=== PATIENT | female | born 1945 | race Caucasian/White ===

== ENCOUNTER → 2016-12-01 | Outpatient (CLI) | payer MEDICARE, OTHER ==
--- NOTE | 2016-12-01 16:08 | XR ---
EXAMINATION TYPE: XR toes LT DATE OF EXAM ORDERED: 12/01/2016 2:20 PM HISTORY: Fracture. COMPARISON: Previous study dated 11/09/2016. FINDINGS: An undisplaced fracture through the distal aspect of the proximal phalanx of the great to e is again identified. This extends intra-articularly. The fracture line is still clearly visible. Note is made of severe degenerative change in the left first MTP joint. IMPRESSION: 1. NO CHANGE IN THE APPEARANCE OF THE FRACTURE OF THE PROXIMAL PHALANX OF THE LEFT GREAT TOE. RADIOGR APHIC BONE UNION IS NOT YET COMPLETE. 2. SEVERE DEGENERATIVE CHANGE, LEFT FIRST MTP JOINT.
== END | disposition home or self-care (01) ==
LOC: RADXRMAIN 13:49
PROVIDERS: ATTEND Family Medicine
DX: S92.412A Displaced fracture of proximal phalanx of left great toe, initial encounter for closed fracture (principal); M25.872 Other specified joint disorders, left ankle and foot

== ENCOUNTER → 2016-12-01 | Outpatient (CLI) | payer MEDICARE, OTHER ==
--- NOTE | 2016-12-05 06:49 | MM ---
Reason for exam: screening (asymptomatic). Last mammogram was performed 1 year and 7 months ago. History: Patient is postmenopausal. Physical Findings: A clinical breast exam by your physician is recommended on an annual basis and results should be correlated with mammographic findings. MG 3D Screening Mammo W/Cad Bilateral CC and MLO view(s) were taken. Prior study comparison: April 23, 2015, bilateral MG screening mammo w CAD. September 10, 2013, bilateral digital screening mammo w/CAD. The breast tissue is almost entirely fat. Focal asymmetry suareolar greater in the left breast, stable. No significant changes when compared with prior studies. ASSESSMENT: Benign, BI-RAD 2 RECOMMENDATION: Routine screening mammogram of both breasts in 1 year.
== END | disposition home or self-care (01) ==
LOC: RADMAMWWP 12:49
PROVIDERS: ATTEND Family Medicine
DX: Z12.31 Encounter for screening mammogram for malignant neoplasm of breast (principal)
CPT/HCPCS: 77063; G0202

== ENCOUNTER → 2016-12-01 | Outpatient (CLI) | payer MEDICARE, OTHER ==
[2016-12-01 14:12] LABS: Basophils % (A) 1 %; CH 27.6; CHCM 30.8; Eosinophils # (A) 0.1 k/uL (0-0.7); Eosinophils % (A) 2 %; HCT 37.7 % (34.0-46.0); HDW 2.37; HGB 11.5 gm/dL (11.4-16.0); Hypochromasia Slight; Luc # (Auto) 0.19; Luc % (Auto) 3; Lymphocytes # (A) 1.8 k/uL (1.0-4.8); Lymphocytes % (A) 26 %; MCH 27.3 pg (25.0-35.0); MCHC 30.5 g/dL (31.0-37.0); MCV 89.7 fL (80.0-100.0); Mean Platelet Volume 8.1; Monocytes # (A) 0.8 k/uL (0-1.0); Monocytes % (A) 11 %; Neutrophils # (A) 4.1 k/uL (1.3-7.7); Neutrophils % (A) 58 %; RDW 13.7 % (11.5-15.5); WBC 7.1 k/uL (3.8-10.6); WBC (Perox) 7.54
[2016-12-01 14:42] LABS: Appearance,Urine Clear (Clear); Bilirubin,Urine Negative (Negative); Glucose,Urine (UA) 4+ (Negative); Ketones,Urine Negative (Negative); Leukocyte Esterase,Urine Negative (Negative); Nitrite,Urine Negative (Negative); PH, Urine 5.5 (5.0-8.0); Protein,Urine Negative (Negative); Specific Gravity,Urine 1.012 (1.001-1.035); UA Billing (MACRO vs. MICRO) CHEM; Urobilinogen,Urine <2.0 mg/dL (<2.0)
[2016-12-01 15:35] LABS: Calcium 9.3 mg/dL (8.4-10.2); Phosphorous 3.8 mg/dL (2.5-4.5); Potassium 5.2 mmol/L (3.5-5.1); Uric Acid 6.8 mg/dL (3.7-7.4)
[2016-12-01 15:52] LABS: % Iron Saturation 26.3 % (20-50)
== END | disposition home or self-care (01) ==
LOC: LABWHC1 13:17
PROVIDERS: ATTEND Nurse Practitioner Family
DX: N18.3 Chronic kidney disease, stage 3 (moderate) (principal); N25.81 Secondary hyperparathyroidism of renal origin; D64.9 Anemia, unspecified; E55.9 Vitamin D deficiency, unspecified; M10.9 Gout, unspecified; N39.0 Urinary tract infection, site not specified
CPT/HCPCS: 36415; 77063; 80048; 81003; 82306; 82728; 83540; 83550; 83735; 83970; 84100; 84550; 85025

== ENCOUNTER → 2017-01-24 | Outpatient (CLI) | payer MEDICARE, OTHER ==
--- NOTE | 2017-01-24 14:40 | US ---
EXAMINATION TYPE: US kidneys/renal and bladder DATE OF EXAM: 01/24/2017 1:15 PM COMPARISON: CT in PACS CLINICAL HISTORY: N18.3 Chronic Kidney Disease Stage 3. Chronic kidney disease EXAM MEASUREMENTS: Right Kidney: 10.1 x 4.7 x 4.6 cm Left Kidney: 10.4 x 5.1 x 4.3 cm FINDINGS: No evidence of hydronephrosis or nephrolithiasis. Bladder is limited by incomplete distenti on. There appears to be increased echogenicity of the renal cortex. Simple appearing 7 mm right renal cyst noted. IMPRESSION: 1. Correlate for chronic medical renal disease 2. Simple appearing right renal 7 mm cyst 3. Bladder wall slightly thickened but is incompletely distended which likely accounts for the findin g. Correlate clinically.
== END | disposition home or self-care (01) ==
LOC: RADUSWWP 12:45
PROVIDERS: ATTEND Internal Medicine Nephrology
DX: N18.3 Chronic kidney disease, stage 3 (moderate) (principal); N28.1 Cyst of kidney, acquired
CPT/HCPCS: 76770

== ENCOUNTER → 2017-03-23 | Outpatient (CLI) | payer MEDICARE, OTHER ==
[2017-03-23 12:12] LABS: Basophils % (A) 1 %; CH 27.9; CHCM 31.4; Eosinophils # (A) 0.2 k/uL (0-0.7); Eosinophils % (A) 3 %; HCT 36.9 % (34.0-46.0); HDW 2.39; HGB 11.7 gm/dL (11.4-16.0); Luc # (Auto) 0.22; Luc % (Auto) 3; Lymphocytes # (A) 2.2 k/uL (1.0-4.8); Lymphocytes % (A) 30 %; MCH 28.3 pg (25.0-35.0); MCHC 31.7 g/dL (31.0-37.0); MCV 89.3 fL (80.0-100.0); Mean Platelet Volume 8.6; Monocytes % (A) 14 %; Neutrophils # (A) 3.7 k/uL (1.3-7.7); Neutrophils % (A) 50 %; RBC 4.13 m/uL (3.80-5.40); WBC 7.3 k/uL (3.8-10.6); WBC (Perox) 6.58
[2017-03-23 12:42] LABS: Appearance,Urine Clear (Clear); Bilirubin,Urine Negative (Negative); Glucose,Urine (UA) Negative (Negative); Ketones,Urine Negative (Negative); Leukocyte Esterase,Urine Negative (Negative); Nitrite,Urine Negative (Negative); Protein,Urine Negative (Negative); Specific Gravity,Urine 1.014 (1.001-1.035); UA Billing (MACRO vs. MICRO) CHEM; Urobilinogen,Urine <2.0 mg/dL (<2.0)
[2017-03-23 12:43] LABS: Calcium 9.4 mg/dL (8.4-10.2); Phosphorous 4.3 mg/dL (2.5-4.5); Potassium 5.4 mmol/L (3.5-5.1); Uric Acid 7.2 mg/dL (3.7-7.4)
== END | disposition home or self-care (01) ==
LOC: LABWHC1 11:35
PROVIDERS: ATTEND Nurse Practitioner Family
DX: E21.3 Hyperparathyroidism, unspecified (principal); N39.0 Urinary tract infection, site not specified; N18.3 Chronic kidney disease, stage 3 (moderate); D64.9 Anemia, unspecified; E55.9 Vitamin D deficiency, unspecified; M10.9 Gout, unspecified
CPT/HCPCS: 36415; 80048; 81003; 82306; 82728; 83540; 83550; 83735; 83970; 84100; 84550; 85025

== ENCOUNTER → 2017-05-25 | Outpatient (CLI) | payer MEDICARE, OTHER ==
[2017-05-25 11:13] LABS: Calcium 9.4 mg/dL (8.4-10.2); Potassium 5.2 mmol/L (3.5-5.1); Total Bilirubin 0.3 mg/dL (0.2-1.3); Total Protein 6.8 g/dL (6.3-8.2)
== END ==
LOC: LABWHC1 10:16
PROVIDERS: ATTEND Internal Medicine Interventional Cardiology
DX: E87.5 Hyperkalemia (principal); E78.2 Mixed hyperlipidemia
CPT/HCPCS: 36415; 80053; 80061

== ENCOUNTER 2017-06-01 20:51 | Inpatient (IN) | payer MEDICARE, OTHER ==
[2017-06-01 22:25] LABS: Anisocytosis Slight; Basophils # (A) 0.1 k/uL (0-0.2); Basophils % (A) 1 %; CH 30.7; CHCM 32.2; Eosinophils # (A) 0.2 k/uL (0-0.7); Eosinophils % (A) 2 %; HCT 35.4 % (34.0-46.0); HDW 2.39; HGB 11.3 gm/dL (11.4-16.0); Luc # (Auto) 0.37; Luc % (Auto) 3; Lymphocytes # (A) 1.9 k/uL (1.0-4.8); Lymphocytes % (A) 16 %; MCH 30.6 pg (25.0-35.0); MCHC 31.9 g/dL (31.0-37.0); MCV 96.2 fL (80.0-100.0); Macrocytosis Slight; Mean Platelet Volume 8.4; Monocytes # (A) 1.7 k/uL (0-1.0); Monocytes % (A) 15 %; Neutrophils # (A) 7.3 k/uL (1.3-7.7); Neutrophils % (A) 64 %; RBC 3.68 m/uL (3.80-5.40); RDW 17.7 % (11.5-15.5); WBC 11.5 k/uL (3.8-10.6); WBC (Perox) 11.11
[2017-06-01 22:30] LABS: Calcium 9.2 mg/dL (8.4-10.2); Total Bilirubin 0.2 mg/dL (0.2-1.3); Total Protein 6.7 g/dL (6.3-8.2)
[2017-06-01 22:50] LABS: Creatine Kinase MB 1.1 ng/mL (0.0-2.4); Troponin I 0.016 ng/mL (0.000-0.034)
[2017-06-01 23:01] LABS: Appearance,Urine Cloudy (Clear); Bacteria,Urine Few /hpf; Bilirubin,Urine Negative (Negative); Glucose,Urine (UA) Negative (Negative); Ketones,Urine Negative (Negative); Leukocyte Esterase,Urine Large (Negative); Mucus,Urine Occasional /hpf; Nitrite,Urine Negative (Negative); Particle Count 11514; Protein,Urine Trace (Negative); RBC,Urine 3 /hpf (0-5); Squamous Epithelial Cell,Urine 33 /hpf (0-4); UA Billing (MACRO vs. MICRO) MICRO; WBC,Urine 52 /hpf (0-5)
[2017-06-01] MEDS ORDERED: SODIUM POLYSTYRENE SULFONATE 15 GM/60 ML BOTTLE PO STA (23:31)
[2017-06-01] MEDS ORDERED: SODIUM CHLORIDE 0.9% 500 ML IV ONE (23:31)
[2017-06-01] MEDS ORDERED: CALCIUM GLUCONATE 1,000 MG in SODIUM CHLORIDE 0.9% 100 ML IVPB ONE (23:31)
[2017-06-01 23:43] LABS: Partial Thromboplastin Time 19.7 sec (22.0-30.0)
[2017-06-01] MEDS ORDERED: NALOXONE 0.4 MG/ML 1 ML VIAL IV PRN (23:45)
[2017-06-01] MEDS ORDERED: ONDANSETRON 4 MG/2 ML VIAL IVP PRN (23:45)
--- NOTE | 2017-06-01 23:53 | ED ---
General Adult HPI - General Chief complaint: Syncope Stated complaint: Syncope Time Seen by Provider: 06/01/17 21:11 Source: patient, family, RN notes reviewed Mode of arrival: ambulatory Limitations: no limitations - History of Present Illness Initial comments: 71-year-old female presents with chief complaint syncopal episode. Patient proximally 5 minutes of loss consciousness wall on the toilet. There is no history of trauma. Patient denies chest pain or shortness of breath. She does complain of some generalized weakness. States she had a mild headache which is currently resolved. She has past medical history diabetes, chronic kidney disease, hypertension and CAD. She also has the beginning signs of dementia according to her family. At the time my evaluation patient had no complaints. - Related Data Home Medications Medication Instructions Recorded Confirmed Aspirin EC [Ecotrin Low Dose] 162 mg PO DAILY 12/04/14 06/01/17 Atorvastatin [Lipitor] 10 mg PO DAILY 12/04/14 06/01/17 Ergocalciferol [Vitamin D2 50,000 unit PO [id number] 12/04/14 06/01/17 (DRISDOL)] Melatonin 3 mg PO HS PRN 12/04/14 06/01/17 Omeprazole 40 mg PO AC-BRKFST 12/04/14 06/01/17 clonazePAM [KlonoPIN] 0.5 mg PO TID 12/04/14 06/01/17 Acetaminophen Tab [Tylenol] 1,000 mg PO Q6HR PRN 07/20/15 06/01/17 Albuterol Inhaler [Ventolin Hfa 2 puff INHALATION RT-HS 07/20/15 06/01/17 Inhaler] FLUoxetine HCL [PROzac] 40 mg PO DAILY 07/20/15 06/01/17 Hypromellose [Artificial Tears] 1 drop BOTH EYES DAILY PRN 07/20/15 06/01/17 Allopurinol [Zyloprim] 100 mg PO DAILY 06/01/17 06/01/17 Calcitriol [Rocaltrol] 0.25 mcg PO SAEED 06/01/17 06/01/17 Docusate [Colace] 100 mg PO Q48H 06/01/17 06/01/17 Donepezil [Aricept] 5 mg PO DAILY 06/01/17 06/01/17 Ferrous Sulfate [Feosol] 325 mg PO DAILY 06/01/17 06/01/17 Hydrochlorothiazide 12.5 mg PO DAILY 06/01/17 06/01/17 Insulin Glargine,Hum.rec.anlog 30 unit SQ HS 06/01/17 06/01/17 [Lantus Solostar] Metoprolol Tartrate [Lopressor] 50 mg PO QAM 06/01/17 06/01/17 Ondansetron [Zofran] 4 mg PO TID 06/01/17 06/01/17 Triamcinolone 0.1% Cream [Kenalog] 1 applicatio TOPICAL BID 06/01/17 06/01/17 Previous Rx's Medication Instructions Recorded Lisinopril [Prinivil] 20 mg PO DAILY #30 tablet 07/27/15 Allergies Allergy/AdvReac Type Severity Reaction Status Date / Time benztropine mesylate Allergy Unknown Verified 06/01/17 21:20 [From Cogentin] metoclopramide HCl Allergy Unknown Verified 06/01/17 21:20 [From Reglan] prochlorperazine edisylate Allergy Unknown Verified 06/01/17 21:20 [From Compazine] prochlorperazine maleate Allergy Unknown Verified 06/01/17 21:20 [From Compazine] Review of Systems ROS Statement: Those systems with pertinent positive or pertinent negative responses have been documented in the HPI. ROS Other: All systems not noted in ROS Statement are negative. Past Medical History Past Medical History: Coronary Artery Disease (CAD), CVA/TIA, Dementia, Hyperlipidemia, Hypertension Additional Past Medical History / Comment(s): pt poor historian: renal failure , dementia, gout, cerebral bleed History of Any Multi-Drug Resistant Organisms: None Reported Past Surgical History: Coronary Bypass/CABG, Hysterectomy Additional Past Surgical History / Comment(s): carotid endarectmy, trach, craniotomy Past Psychological History: No Psychological Hx Reported Smoking Status: Former smoker Past Alcohol Use History: None Reported Past Drug Use History: None Reported - Past Family History Father Family Medical History: Unable to Obtain General Exam Limitations: no limitations General appearance: alert, in no apparent distress Head exam: Present: atraumatic, normocephalic Eye exam: Present: normal appearance, PERRL ENT exam: Present: normal exam, mucous membranes moist Neck exam: Present: normal inspection, full ROM Respiratory exam: Present: normal lung sounds bilaterally. Absent: respiratory distress Cardiovascular Exam: Present: normal rhythm, bradycardia GI/Abdominal exam: Present: soft. Absent: distended, tenderness Extremities exam: Present: normal inspection, normal capillary refill. Absent: pedal edema Back exam: Present: normal inspection, full ROM Neurological exam: Present: alert, oriented X3. Absent: motor sensory deficit Psychiatric exam: Present: normal affect, normal mood Skin exam: Present: warm, dry. Absent: diaphoretic Course Vital Signs 06/01/17 06/01/17 20:55 22:00 Temperature 97.6 F 98.0 F Pulse Rate 52 L 51 L Respiratory 18 16 Rate Blood Pressure 112/57 145/61 O2 Sat by Pulse 99 99 Oximetry EKG Findings - EKG Comments: EKG Findings:: EKG shows sinus bradycardia with first-degree AV block, ventricular rate of 50, AR interval 260, QRS duration 92, QTC is 450 Medical Decision Making - Medical Decision Making 71-year-old female residing with brief episode of syncope. Patient has no complaints. She does have a history of chronic kidney disease. Laboratory studies reveal a potassium level of 6.0 and a creatinine of 1.7. Patient's EKG shows sinus bradycardia with prolonged AR interval. Patient is given calcium, vital saline, and Kayexalate in the emergency department. She will be admitted for further IV hydration, potassium will be rechecked in the morning. Diagnosis: Acute on chronic kidney disease, hyperkalemia, syncope - Lab Data Result diagrams: 06/01/17 21:58 06/01/17 21:58 Lab Results 06/01/17 06/01/17 06/01/17 Range/Units 21:58 21:58 21:58 WBC 11.5 H (3.8-10.6) k/uL RBC 3.68 L (3.80-5.40) m/uL Hgb 11.3 L (11.4-16.0) gm/dL Hct 35.4 (34.0-46.0) % MCV 96.2 (80.0-100.0) fL MCH 30.6 (25.0-35.0) pg MCHC 31.9 (31.0-37.0) g/dL RDW 17.7 H (11.5-15.5) % Plt Count 191 (150-450) k/uL Neutrophils % 64 % Lymphocytes % 16 % Monocytes % 15 % Eosinophils % 2 % Basophils % 1 % Neutrophils # 7.3 (1.3-7.7) k/uL Lymphocytes # 1.9 (1.0-4.8) k/uL Monocytes # 1.7 H (0-1.0) k/uL Eosinophils # 0.2 (0-0.7) k/uL Basophils # 0.1 (0-0.2) k/uL Anisocytosis Slight Macrocytosis Slight PT (9.0-12.0) sec INR (<1.2) APTT (22.0-30.0) sec Sodium 130 L (137-145) mmol/L Potassium 6.0 H (3.5-5.1) mmol/L Chloride 99 (98-107) mmol/L Carbon Dioxide 21 L (22-30) mmol/L Anion Gap 10 mmol/L BUN 38 H (7-17) mg/dL Creatinine 1.70 H (0.52-1.04) mg/dL Est GFR (MDRD) Af Amer 36 (>60 ml/min/1.73 sqM) Est GFR (MDRD) Non-Af 29 (>60 ml/min/1.73 sqM) Glucose 245 H (74-99) mg/dL Calcium 9.2 (8.4-10.2) mg/dL Magnesium 2.0 (1.6-2.3) mg/dL Total Bilirubin 0.2 (0.2-1.3) mg/dL AST 43 H (14-36) U/L ALT 54 H (9-52) U/L Alkaline Phosphatase 110 (38-126) U/L Total Creatine Kinase 55 (30-135) U/L CK-MB (CK-2) 1.1 (0.0-2.4) ng/mL CK-MB (CK-2) Rel Index 2.0 Troponin I 0.016 (0.000-0.034) ng/mL Total Protein 6.7 (6.3-8.2) g/dL Albumin 3.6 (3.5-5.0) g/dL Urine Color Urine Appearance (Clear) Urine pH (5.0-8.0) Ur Specific [place] (1.001-1.035) Urine Protein (Negative) Urine Glucose (UA) (Negative) Urine Ketones (Negative) Urine Blood (Negative) Urine Nitrite (Negative) Urine Bilirubin (Negative) Urine Urobilinogen (<2.0) mg/dL Ur Leukocyte Esterase (Negative) Urine RBC (0-5) /hpf Urine WBC (0-5) /hpf Ur Squamous Epith Cells (0-4) /hpf Urine Bacteria (None) /hpf Hyaline Casts (0-2) /lpf Urine Mucus (None) /hpf 06/01/17 06/01/17 Range/Units 21:58 22:48 WBC (3.8-10.6) k/uL RBC (3.80-5.40) m/uL Hgb (11.4-16.0) gm/dL Hct (34.0-46.0) % MCV (80.0-100.0) fL MCH (25.0-35.0) pg MCHC (31.0-37.0) g/dL RDW (11.5-15.5) % Plt Count (150-450) k/uL Neutrophils % % Lymphocytes % % Monocytes % % Eosinophils % % Basophils % % Neutrophils # (1.3-7.7) k/uL Lymphocytes # (1.0-4.8) k/uL Monocytes # (0-1.0) k/uL Eosinophils # (0-0.7) k/uL Basophils # (0-0.2) k/uL Anisocytosis Macrocytosis PT 10.0 (9.0-12.0) sec INR 1.0 (<1.2) APTT 19.7 L (22.0-30.0) sec Sodium (137-145) mmol/L Potassium (3.5-5.1) mmol/L Chloride (98-107) mmol/L Carbon Dioxide (22-30) mmol/L Anion Gap mmol/L BUN (7-17) mg/dL Creatinine (0.52-1.04) mg/dL Est GFR (MDRD) Af Amer (>60 ml/min/1.73 sqM) Est GFR (MDRD) Non-Af (>60 ml/min/1.73 sqM) Glucose (74-99) mg/dL Calcium (8.4-10.2) mg/dL Magnesium (1.6-2.3) mg/dL Total Bilirubin (0.2-1.3) mg/dL AST (14-36) U/L ALT (9-52) U/L Alkaline Phosphatase (38-126) U/L Total Creatine Kinase (30-135) U/L CK-MB (CK-2) (0.0-2.4) ng/mL CK-MB (CK-2) Rel Index Troponin I (0.000-0.034) ng/mL Total Protein (6.3-8.2) g/dL Albumin (3.5-5.0) g/dL Urine Color Yellow Urine Appearance Cloudy H (Clear) Urine pH 5.0 (5.0-8.0) Ur Specific [place] 1.020 (1.001-1.035) Urine Protein Trace H (Negative) Urine Glucose (UA) Negative (Negative) Urine Ketones Negative (Negative) Urine Blood Negative (Negative) Urine Nitrite Negative (Negative) Urine Bilirubin Negative (Negative) Urine Urobilinogen 2.0 (<2.0) mg/dL Ur Leukocyte Esterase Large H (Negative) Urine RBC 3 (0-5) /hpf Urine WBC 52 H (0-5) /hpf Ur Squamous Epith Cells 33 H (0-4) /hpf Urine Bacteria Few H (None) /hpf Hyaline Casts 45 H (0-2) /lpf Urine Mucus Occasional H (None) /hpf Disposition Clinical Impression: Hyperkalemia Disposition: ADMITTED IP TO THIS [facility] Condition: Stable Referrals: Wiliam Calderon DO [Primary Care Provider] - 1-2 days Decision to Admit Reason: Admit from EC Decision Date: 06/01/17 Decision Time: 23:52
[2017-06-02 01:19] VITALS: BMI 31.3
[2017-06-02 03:17] VITALS: RESP 16
[2017-06-02 06:19] LABS: Glucose,Whole Blood 209 mg/dL (75-99)
[2017-06-02] MEDS: SODIUM CHLORIDE 0.9% 1,000 ML IV SCH ×2 (06:25→17:40)
[2017-06-02] MEDS: INSULIN LISPRO (humaLOG) 300 UNIT/3 ML VIAL SQ SCH ×4 (06:26→21:19)
[2017-06-02 07:07] LABS: Anisocytosis Slight; Basophils % (A) 0 %; CH 30.5; CHCM 31.9; Eosinophils # (A) 0.2 k/uL (0-0.7); Eosinophils % (A) 2 %; HCT 32.9 % (34.0-46.0); HDW 2.33; HGB 10.5 gm/dL (11.4-16.0); Luc # (Auto) 0.34; Luc % (Auto) 3; Lymphocytes # (A) 2.8 k/uL (1.0-4.8); Lymphocytes % (A) 25 %; MCH 30.7 pg (25.0-35.0); MCV 96.1 fL (80.0-100.0); Macrocytosis Slight; Mean Platelet Volume 8.2; Monocytes # (A) 1.4 k/uL (0-1.0); Monocytes % (A) 13 %; Neutrophils # (A) 6.1 k/uL (1.3-7.7); Neutrophils % (A) 56 %; RBC 3.42 m/uL (3.80-5.40); RDW 17.3 % (11.5-15.5); WBC 10.9 k/uL (3.8-10.6); WBC (Perox) 11.06
[2017-06-02 07:19] LABS: Calcium 8.7 mg/dL (8.4-10.2); Magnesium 1.9 mg/dL (1.6-2.3); Phosphorous 3.5 mg/dL (2.5-4.5); Potassium 4.9 mmol/L (3.5-5.1)
--- NOTE | 2017-06-02 07:59 | XR ---
EXAMINATION TYPE: XR chest 2V DATE OF EXAM: 06/01/2017 COMPARISON: 07/26/2015 HISTORY: Shortness of breath TECHNIQUE: Frontal and lateral views of the chest are obtained. FINDINGS: Scattered senescent parenchymal changes noted. Hyperinflation compatible with COPD. No evidence for infiltrate. No evidence for atelectasis. Heart size is stable. Mediastinal structures are stable and grossly unremarkable. No evidence for hilar prominence. Degenerative changes dorsal spine. IMPRESSION: 1. No evidence for acute pulmonary disease.
[2017-06-02] MEDS: METOPROLOL SUCCINATE (ER) 50 MG TAB.ER.24H PO SCH (09:56)
[2017-06-02] MEDS: ASPIRIN 81 MG CHEW PO SCH (09:56)
[2017-06-02] MEDS: clonazePAM 0.5 MG TAB PO SCH ×3 (09:57→21:22)
[2017-06-02] MEDS: ACETAMINOPHEN TAB 325 MG TAB PO PRN (11:04)
[2017-06-02 12:05] LABS: Glucose,Whole Blood 221 mg/dL (75-99)
[2017-06-02 12:30] LABS: Hemoglobin A1C 8.2 % (4.2-6.1)
--- NOTE | 2017-06-02 15:10 | P.HPIM ---
History of Present Illness H&P Date: 06/02/17 Chief Complaint: Syncope This is a 71-year-old female that currently lives at assisted living facility was brought into the hospital with the a syncopal episode while patient was on the toilet. Patient currently has had a similar episode in the past. Patient does not recall if she was having enough oral intake. Patient was noted to have a worsening of kidney function initial admission a previous admission was also consistent with the similar etiology. Patient does have a history of dementia. Patient underwent orthostatics which were negative Patient was given IV fluids at the time of my evaluation states that she is significantly improved denies having any headaches blurry vision focal weakness nausea vomiting abdominal pain diarrhea Patient was able to ambulate to the bathroom without much difficulty EKG did not reveal any conduction abnormalities Describes the episode as patient was feeling weak was queasy and denies having any diaphoresis however passed out on the toilet a regain consciousness without any loss of bowel or bladdercontrol Review of Systems All systems: negative (Noted in HPI) Past Medical History Past Medical History: Coronary Artery Disease (CAD), CVA/TIA, Dementia, Diabetes Mellitus, Hyperlipidemia, Hypertension Additional Past Medical History / Comment(s): pt poor historian: renal failure , dementia, gout, cerebral bleed History of Any Multi-Drug Resistant Organisms: None Reported Past Surgical History: Coronary Bypass/CABG, Hysterectomy Additional Past Surgical History / Comment(s): carotid endarectmy, trach, craniotomy Past Psychological History: No Psychological Hx Reported Smoking Status: Former smoker Past Alcohol Use History: None Reported Past Drug Use History: None Reported - Past Family History Father Family Medical History: Unable to Obtain Medications and Allergies Home Medications Medication Instructions Recorded Confirmed Type Aspirin EC [Ecotrin Low Dose] 162 mg PO DAILY 12/04/14 06/01/17 History Atorvastatin [Lipitor] 10 mg PO DAILY 12/04/14 06/01/17 History Ergocalciferol [Vitamin D2 50,000 unit PO [id number] 12/04/14 06/01/17 History (DRISDOL)] Melatonin 3 mg PO HS PRN 12/04/14 06/01/17 History Omeprazole 40 mg PO AC-BRKFST 12/04/14 06/01/17 History clonazePAM [KlonoPIN] 0.5 mg PO TID 12/04/14 06/01/17 History Acetaminophen Tab [Tylenol] 1,000 mg PO Q6HR PRN 07/20/15 06/01/17 History Albuterol Inhaler [Ventolin Hfa 2 puff INHALATION RT-HS 07/20/15 06/01/17 History Inhaler] FLUoxetine HCL [PROzac] 40 mg PO DAILY 07/20/15 06/01/17 History Hypromellose [Artificial Tears] 1 drop BOTH EYES DAILY PRN 07/20/15 06/01/17 History Allopurinol [Zyloprim] 100 mg PO DAILY 06/01/17 06/01/17 History Calcitriol [Rocaltrol] 0.25 mcg PO SAEED 06/01/17 06/01/17 History Docusate [Colace] 100 mg PO Q48H 06/01/17 06/01/17 History Donepezil [Aricept] 5 mg PO DAILY 06/01/17 06/01/17 History Ferrous Sulfate [Feosol] 325 mg PO DAILY 06/01/17 06/01/17 History Hydrochlorothiazide 12.5 mg PO DAILY 06/01/17 06/01/17 History Insulin Glargine,Hum.rec.anlog 30 unit SQ HS 06/01/17 06/01/17 History [Lantus Solostar] Metoprolol Tartrate [Lopressor] 50 mg PO QAM 06/01/17 06/01/17 History Ondansetron [Zofran] 4 mg PO TID 06/01/17 06/01/17 History Triamcinolone 0.1% Cream [Kenalog] 1 applicatio TOPICAL BID 06/01/17 06/01/17 History Allergies Allergy/AdvReac Type Severity Reaction Status Date / Time benztropine mesylate Allergy Unknown Verified 06/01/17 21:20 [From Cogentin] metoclopramide HCl Allergy Unknown Verified 06/01/17 21:20 [From Reglan] prochlorperazine edisylate Allergy Unknown Verified 06/01/17 21:20 [From Compazine] prochlorperazine maleate Allergy Unknown Verified 06/01/17 21:20 [From Compazine] Physical Exam Vitals: Vital Signs Temp Pulse Pulse Pulse Pulse Pulse Resp 06/02/17 12:27 60 16 06/02/17 09:20 16 06/02/17 08:00 97 F L 58 L 70 56 L 16 06/02/17 03:13 97.4 F L 57 L 16 06/02/17 00:36 96.9 F L 54 L 18 06/02/17 00:18 51 L 14 06/01/17 22:00 98.0 F 51 L 16 06/01/17 20:55 97.6 F 52 L 18 BP BP BP BP BP Pulse Ox 06/02/17 12:27 152/69 95 06/02/17 09:20 06/02/17 08:00 148/50 143/64 154/64 96 06/02/17 03:13 138/51 97 06/02/17 00:36 157/70 98 06/02/17 00:18 162/72 94 L 06/01/17 22:00 145/61 99 06/01/17 20:55 112/57 99 Intake and Output 06/02/17 06/02/17 06/02/17 06:59 14:59 22:59 Intake Total 800 Output Total 350 Balance 450 Intake: IV 800 Calcium Gluconate 1,000 100 mg In Sodium Chloride 0.9 % 100 ml @ 100 mls/hr IVPB ONCE ONE Rx#: [id number] Sodium Chloride 0.9% 1, 700 000 ml @ 75 mls/hr IV . [id number] [facility] Rx#:[id number] Output: Urine 350 Other: Weight 91.5 kg Physical exam Gen. appearance oriented 3 in no distress Neck is supple no JVD Lungs good air entry clear to auscultation no rhonchi or wheezing trace crackles at the bases Heart S1-S2 heard regular rate and rhythm no murmurs appreciated Abdomen is soft nontender no organomegaly bowel sounds are intact Neurologically cranial nerves II-12 grossly intact no focal motor or sensory deficits noted Skin no abnormalities appreciated Results CBC & Chem 7: 06/02/17 06:29 06/02/17 06:29 Labs: Abnormal Lab Results - Last 24 Hours (Table) 06/01/17 06/01/17 06/01/17 Range/Units 21:58 21:58 21:58 WBC 11.5 H (3.8-10.6) k/uL RBC 3.68 L (3.80-5.40) m/uL Hgb 11.3 L (11.4-16.0) gm/dL Hct (34.0-46.0) % RDW 17.7 H (11.5-15.5) % Monocytes # 1.7 H (0-1.0) k/uL APTT 19.7 L (22.0-30.0) sec Sodium 130 L (137-145) mmol/L Potassium 6.0 H (3.5-5.1) mmol/L Carbon Dioxide 21 L (22-30) mmol/L BUN 38 H (7-17) mg/dL Creatinine 1.70 H (0.52-1.04) mg/dL Glucose 245 H (74-99) mg/dL POC Glucose (mg/dL) (75-99) mg/dL Hemoglobin A1c (4.2-6.1) % AST 43 H (14-36) U/L ALT 54 H (9-52) U/L Urine Appearance (Clear) Urine Protein (Negative) Ur Leukocyte Esterase (Negative) Urine WBC (0-5) /hpf Ur Squamous Epith Cells (0-4) /hpf Urine Bacteria (None) /hpf Hyaline Casts (0-2) /lpf Urine Mucus (None) /hpf 06/01/17 06/02/17 06/02/17 Range/Units 22:48 06:18 06:29 WBC 10.9 H (3.8-10.6) k/uL RBC 3.42 L (3.80-5.40) m/uL Hgb 10.5 L (11.4-16.0) gm/dL Hct 32.9 L (34.0-46.0) % RDW 17.3 H (11.5-15.5) % Monocytes # 1.4 H (0-1.0) k/uL APTT (22.0-30.0) sec Sodium (137-145) mmol/L Potassium (3.5-5.1) mmol/L Carbon Dioxide (22-30) mmol/L BUN (7-17) mg/dL Creatinine (0.52-1.04) mg/dL Glucose (74-99) mg/dL POC Glucose (mg/dL) 209 H (75-99) mg/dL Hemoglobin A1c (4.2-6.1) % AST (14-36) U/L ALT (9-52) U/L Urine Appearance Cloudy H (Clear) Urine Protein Trace H (Negative) Ur Leukocyte Esterase Large H (Negative) Urine WBC 52 H (0-5) /hpf Ur Squamous Epith Cells 33 H (0-4) /hpf Urine Bacteria Few H (None) /hpf Hyaline Casts 45 H (0-2) /lpf Urine Mucus Occasional H (None) /hpf 06/02/17 06/02/17 06/02/17 Range/Units 06:29 06:29 11:55 WBC (3.8-10.6) k/uL RBC (3.80-5.40) m/uL Hgb (11.4-16.0) gm/dL Hct (34.0-46.0) % RDW (11.5-15.5) % Monocytes # (0-1.0) k/uL APTT (22.0-30.0) sec Sodium 131 L (137-145) mmol/L Potassium (3.5-5.1) mmol/L Carbon Dioxide (22-30) mmol/L BUN 35 H (7-17) mg/dL Creatinine 1.32 H (0.52-1.04) mg/dL Glucose 198 H (74-99) mg/dL POC Glucose (mg/dL) 221 H (75-99) mg/dL Hemoglobin A1c 8.2 H (4.2-6.1) % AST (14-36) U/L ALT (9-52) U/L Urine Appearance (Clear) Urine Protein (Negative) Ur Leukocyte Esterase (Negative) Urine WBC (0-5) /hpf Ur Squamous Epith Cells (0-4) /hpf Urine Bacteria (None) /hpf Hyaline Casts (0-2) /lpf Urine Mucus (None) /hpf Microbiology - Last 24 Hours (Table) 06/01/17 22:48 Urine Culture - Preliminary Urine,Voided Thrombosis Risk Factor Assmnt - Choose All That Apply Any of the Below Risk Factors Present?: Yes Each Factor Represents 1 point: Medical pt on bed rest, Obesity (BMI >25) Each Risk Factor Represents 2 Points: Age 61-74 years, Patient confined to bed Thrombosis Risk Factor Assessment Total Risk Factor Score: 6 Thrombosis Risk Factor Assessment Level: High Risk Assessment and Plan Plan: #1 syncope likely due to a vagal episode #2 acute kidney injury due to dehydration #3 hyponatremia likely due to use of cardiac or thiazide and dehydration #4 history of gout #5 dementia #6 essential hypertension #7 CAD #8 history of possible cerebral bleed # Plan Orthostatics are negative. We'll discontinue fluids We'll hold off on hydrochlorothiazide Continue telemetry monitoring repeat labs in the a.m. Patient will likely be discharged back to the assisted living facility in the next 24-48 hours Patient will be ambulated with compression socks to monitor for any abnormality on the monitoring engineer it appears that is a clear vasovagal episode
[2017-06-02 17:17] LABS: Glucose,Whole Blood 131 mg/dL (75-99)
[2017-06-02 20:41] LABS: Glucose,Whole Blood 182 mg/dL (75-99)
[2017-06-02] MEDS ORDERED: INSULIN GLARGINE 100 UNIT/ML 10 ML VIAL SQ SCH (21:00)
[2017-06-03 06:25] LABS: Glucose,Whole Blood 138 mg/dL (75-99)
[2017-06-03] MEDS: INSULIN LISPRO (humaLOG) 300 UNIT/3 ML VIAL SQ SCH ×2 (06:39→12:48)
[2017-06-03 06:57] LABS: Anisocytosis Slight; Basophils # (A) 0.1 k/uL (0-0.2); Basophils % (A) 1 %; CH 30.6; CHCM 32.2; Eosinophils # (A) 0.3 k/uL (0-0.7); Eosinophils % (A) 3 %; HDW 2.32; HGB 11.3 gm/dL (11.4-16.0); Luc # (Auto) 0.29; Luc % (Auto) 3; Lymphocytes # (A) 2.5 k/uL (1.0-4.8); Lymphocytes % (A) 28 %; MCH 30.9 pg (25.0-35.0); MCHC 32.4 g/dL (31.0-37.0); MCV 95.4 fL (80.0-100.0); Macrocytosis Slight; Mean Platelet Volume 8.2; Monocytes # (A) 1.2 k/uL (0-1.0); Monocytes % (A) 13 %; Neutrophils # (A) 4.7 k/uL (1.3-7.7); Neutrophils % (A) 52 %; RBC 3.67 m/uL (3.80-5.40); RDW 17.4 % (11.5-15.5); WBC (Perox) 8.85
[2017-06-03 07:09] LABS: Calcium 9.5 mg/dL (8.4-10.2); Total Bilirubin 0.2 mg/dL (0.2-1.3); Total Protein 6.6 g/dL (6.3-8.2)
[2017-06-03 07:44] VITALS: TEMP 98.3
[2017-06-03] MEDS: clonazePAM 0.5 MG TAB PO SCH (07:45)
[2017-06-03] MEDS: ASPIRIN 81 MG CHEW PO SCH (07:45)
[2017-06-03] MEDS: METOPROLOL SUCCINATE (ER) 50 MG TAB.ER.24H PO SCH (07:46)
[2017-06-03] MEDS: ACETAMINOPHEN TAB 325 MG TAB PO PRN (07:49)
[2017-06-03] MEDS ORDERED: CALCITRIOL 0.25 MCG CAP PO SCH (09:00)
[2017-06-03] MEDS ORDERED: LISINOPRIL 20 MG TAB PO SCH (09:00)
[2017-06-03] MEDS ORDERED: HYDROCHLOROTHIAZIDE 12.5 MG CAP PO SCH (09:00)
[2017-06-03] MEDS ORDERED: FLUoxetine HCL 20 MG CAP PO SCH (09:00)
[2017-06-03] MEDS ORDERED: DONEPEZIL 5 MG TAB PO SCH (09:00)
[2017-06-03] MEDS ORDERED: CEFUROXIME 250 MG TAB PO SCH (09:45)
[2017-06-03 12:20] LABS: Glucose,Whole Blood 257 mg/dL (75-99)
[2017-06-03 12:46] VITALS: BP 113/52; PULSE 60
--- NOTE | 2017-06-03 15:00 | P.DS ---
Providers Date of admission: 06/01/17 23:45 Attending physician: Daron Davis Primary care physician: [facility] Course: This is a 71-year-old female that currently lives at assisted living facility was brought into the hospital with the a syncopal episode while patient was on the toilet. Patient currently has had a similar episode in the past. Patient does not recall if she was having enough oral intake. Patient was noted to have a worsening of kidney function initial admission a previous admission was also consistent with the similar etiology. Patient does have a history of dementia. Patient underwent orthostatics which were negative Patient was given IV fluids at the time of my evaluation states that she is significantly improved denies having any headaches blurry vision focal weakness nausea vomiting abdominal pain diarrhea Patient was able to ambulate to the bathroom without much difficulty EKG did not reveal any conduction abnormalities Describes the episode as patient was feeling weak was queasy and denies having any diaphoresis however passed out on the toilet a regain consciousness without any loss of bowel or bladdercontrol 06/03/2017 Patient is doing well Is able to family without difficulty Orthostatics are negative No or night telemetry events noted Physical exam Physical exam Gen. appearance oriented 3 in no distress Neck is supple no JVD Lungs good air entry clear to auscultation no rhonchi or wheezing trace crackles at the bases Heart S1-S2 heard regular rate and rhythm no murmurs appreciated Abdomen is soft nontender no organomegaly bowel sounds are intact Neurologically cranial nerves II-12 grossly intact no focal motor or sensory deficits noted Skin no abnormalities appreciated Plan: #1 syncope likely due to a vagal episode #2 acute kidney injury due to dehydration #3 hyponatremia likely due to use of cardiac or thiazide and dehydration #4 history of gout #5 dementia #6 essential hypertension #7 CAD #8 history of possible cerebral bleed # appears to be dehydrated We'll discontinue hydrochlorothiazide in light of this Encouraged patient to have increased fluid intake We'll defer to patient's primary care physician in regards to restarting a small dose diuretic later Patient does have dementia there is concern for her oral intake Patient Condition at Discharge: Stable Plan - Discharge Summary New Discharge Prescriptions: New Cefuroxime [Ceftin] 250 mg PO BID #8 tab Continue Omeprazole 40 mg PO AC-BRKFST clonazePAM [KlonoPIN] 0.5 mg PO TID Aspirin EC [Ecotrin Low Dose] 162 mg PO DAILY Ergocalciferol [Vitamin D2 (DRISDOL)] 50,000 unit PO [id number] Atorvastatin [Lipitor] 10 mg PO DAILY Melatonin 3 mg PO HS PRN PRN Reason: sleep Albuterol Inhaler [Ventolin Hfa Inhaler] 2 puff INHALATION RT-HS Acetaminophen Tab [Tylenol] 1,000 mg PO Q6HR PRN PRN Reason: Pain Or Fever > 100.5 Hypromellose [Artificial Tears] 1 drop BOTH EYES DAILY PRN PRN Reason: DRY EYES FLUoxetine HCL [PROzac] 40 mg PO DAILY Lisinopril [Prinivil] 20 mg PO DAILY #30 tablet Ondansetron [Zofran] 4 mg PO TID Metoprolol Tartrate [Lopressor] 50 mg PO QAM Calcitriol [Rocaltrol] 0.25 mcg PO SAEED Donepezil [Aricept] 5 mg PO DAILY Triamcinolone 0.1% Cream [Kenalog] 1 applicatio TOPICAL BID Insulin Glargine,Hum.rec.anlog [Lantus Solostar] 30 unit SQ HS Ferrous Sulfate [Iron (65 MG Elemental)] 325 mg PO DAILY Allopurinol [Zyloprim] 100 mg PO DAILY Docusate [Colace] 100 mg PO Q48H Discontinued Hydrochlorothiazide 12.5 mg PO DAILY Discharge Medication List Aspirin EC [Ecotrin Low Dose] 162 mg PO DAILY 12/04/14 [History] Atorvastatin [Lipitor] 10 mg PO DAILY 12/04/14 [History] Ergocalciferol [Vitamin D2 (DRISDOL)] 50,000 unit PO [id number] 12/04/14 [History] Melatonin 3 mg PO HS PRN 12/04/14 [History] Omeprazole 40 mg PO AC-BRKFST 12/04/14 [History] clonazePAM [KlonoPIN] 0.5 mg PO TID 12/04/14 [History] Acetaminophen Tab [Tylenol] 1,000 mg PO Q6HR PRN 07/20/15 [History] Albuterol Inhaler [Ventolin Hfa Inhaler] 2 puff INHALATION RT-HS 07/20/15 [ History] FLUoxetine HCL [PROzac] 40 mg PO DAILY 07/20/15 [History] Hypromellose [Artificial Tears] 1 drop BOTH EYES DAILY PRN 07/20/15 [History] Lisinopril [Prinivil] 20 mg PO DAILY #30 tablet 07/27/15 [Rx] Allopurinol [Zyloprim] 100 mg PO DAILY 06/01/17 [History] Calcitriol [Rocaltrol] 0.25 mcg PO SAEED 06/01/17 [History] Docusate [Colace] 100 mg PO Q48H 06/01/17 [History] Donepezil [Aricept] 5 mg PO DAILY 06/01/17 [History] Ferrous Sulfate [Iron (65 MG Elemental)] 325 mg PO DAILY 06/01/17 [History] Insulin Glargine,Hum.rec.anlog [Lantus Solostar] 30 unit SQ HS 06/01/17 [History ] Metoprolol Tartrate [Lopressor] 50 mg PO QAM 06/01/17 [History] Ondansetron [Zofran] 4 mg PO TID 06/01/17 [History] Triamcinolone 0.1% Cream [Kenalog] 1 applicatio TOPICAL BID 06/01/17 [History] Cefuroxime [Ceftin] 250 mg PO BID #8 tab 06/03/17 [Rx] Follow up Appointment(s)/Referral(s): Wiliam Calderon DO [Primary Care Provider] - 1-2 days Patient Instructions/Handouts: Dehydration (DC), Urinary Tract Infection in Women (DC), Syncope (DC), Hyperkalemia (DC) Discharge Disposition: HOME SELF-CARE
== END 2017-06-03 14:14 | disposition home or self-care (01) | DRG 683 ==
LOC: EC 20:51 → 6SEL 23:45
PROVIDERS: ADMIT Internal Medicine; ATTEND Internal Medicine
DX: N17.9 Acute kidney failure, unspecified (principal); E87.1 Hypo-osmolality and hyponatremia; E11.22 Type 2 diabetes mellitus with diabetic chronic kidney disease; F03.90 Unspecified dementia, unspecified severity, without behavioral disturbance, psychotic disturbance, mood disturbance, and anxiety; E87.5 Hyperkalemia; E86.0 Dehydration; R00.1 Bradycardia, unspecified; R55 Syncope and collapse; T50.2X5A Adverse effect of carbonic-anhydrase inhibitors, benzothiadiazides and other diuretics, initial encounter; M10.9 Gout, unspecified; I25.10 Atherosclerotic heart disease of native coronary artery without angina pectoris; I12.9 Hypertensive chronic kidney disease with stage 1 through stage 4 chronic kidney disease, or unspecified chronic kidney disease; E78.5 Hyperlipidemia, unspecified; N18.9 Chronic kidney disease, unspecified; Z79.82 Long term (current) use of aspirin; Z79.4 Long term (current) use of insulin; Z79.899 Other long term (current) drug therapy; Z86.73 Personal history of transient ischemic attack (TIA), and cerebral infarction without residual deficits; Z87.891 Personal history of nicotine dependence; Z95.1 Presence of aortocoronary bypass graft; Z90.710 Acquired absence of both cervix and uterus
CPT/HCPCS: 36415; 71020; 80048; 80053; 81001; 82550; 82553; 83036; 83735; 84100; 84484; 85025; 85610; 85730; 87086; 93005; 96365; 96375; 99285

== ENCOUNTER → 2017-07-27 | Outpatient (CLI) | payer MEDICARE, OTHER ==
[2017-07-27 16:38] LABS: Calcium 9.2 mg/dL (8.4-10.2); Phosphorous 3.6 mg/dL (2.5-4.5); Potassium 5.6 mmol/L (3.5-5.1); Uric Acid 4.5 mg/dL (3.7-7.4)
[2017-07-27 16:42] LABS: Basophils % (A) 0 %; CH 30.9; Eosinophils # (A) 0.2 k/uL (0-0.7); Eosinophils % (A) 2 %; HCT 37.3 % (34.0-46.0); HDW 2.18; HGB 11.9 gm/dL (11.4-16.0); Luc # (Auto) 0.25; Luc % (Auto) 3; Lymphocytes # (A) 2.5 k/uL (1.0-4.8); Lymphocytes % (A) 25 %; MCV 100.1 fL (80.0-100.0); Macrocytosis Slight; Mean Platelet Volume 7.9; Monocytes # (A) 1.3 k/uL (0-1.0); Monocytes % (A) 13 %; Neutrophils # (A) 5.6 k/uL (1.3-7.7); Neutrophils % (A) 57 %; RBC 3.73 m/uL (3.80-5.40); RDW 14.4 % (11.5-15.5); WBC 9.9 k/uL (3.8-10.6); WBC (Perox) 10.55
[2017-07-27 19:43] LABS: Hemoglobin A1C 7.6 % (4.2-6.1)
[2017-07-28 00:47] LABS: Iron Saturation 66.91 (12.00-45.00)
== END | disposition home or self-care (01) ==
LOC: LABWHC1 15:48
PROVIDERS: ATTEND Nurse Practitioner Family
DX: N18.3 Chronic kidney disease, stage 3 (moderate) (principal); D64.9 Anemia, unspecified; D50.9 Iron deficiency anemia, unspecified; E11.9 Type 2 diabetes mellitus without complications; E83.39 Other disorders of phosphorus metabolism; M10.9 Gout, unspecified
CPT/HCPCS: 36415; 80048; 82306; 82728; 83036; 83540; 83550; 83735; 83970; 84100; 84550; 85025

== ENCOUNTER → 2017-12-07 | Outpatient (CLI) | payer MEDICARE, OTHER ==
[2017-12-07 11:22] LABS: Appearance,Urine Clear (Clear); Bilirubin,Urine Negative (Negative); Blood,Urine Negative (Negative); Color,Urine Yellow; Glucose,Urine (UA) Negative (Negative); Ketones,Urine Negative (Negative); Leukocyte Esterase,Urine Negative (Negative); Nitrite,Urine Negative (Negative); Protein,Urine Trace (Negative); Specific Gravity,Urine 1.011 (1.001-1.035); Urobilinogen,Urine <2.0 mg/dL (<2.0)
[2017-12-07 11:43] LABS: Basophils # (A) 0.1 k/uL (0-0.2); Basophils % (A) 1 %; Eosinophils # (A) 0.2 k/uL (0-0.7); Eosinophils % (A) 2 %; HCT 41.7 % (34.0-46.0); Lymphocytes # (A) 2.2 k/uL (1.0-4.8); Lymphocytes % (A) 24 %; MCH 30.4 pg (25.0-35.0); MCHC 31.2 g/dL (31.0-37.0); MCV 97.4 fL (80.0-100.0); Mean Platelet Volume 7.9; Monocytes # (A) 1.2 k/uL (0-1.0); Monocytes % (A) 12 %; Neutrophils # (A) 5.6 k/uL (1.3-7.7); Neutrophils % (A) 59 %; Platelet Count 188 k/uL (150-450); RBC 4.28 m/uL (3.80-5.40); RDW 13.6 % (11.5-15.5); WBC 9.5 k/uL (3.8-10.6)
[2017-12-07 11:58] LABS: Albumin 3.8 g/dL (3.5-5.0); Calcium 9.4 mg/dL (8.4-10.2); Phosphorus 3.4 mg/dL (2.5-4.5); Potassium 5.4 mmol/L (3.5-5.1); Total Bilirubin 0.4 mg/dL (0.2-1.3); Total Protein 7.1 g/dL (6.3-8.2); Uric Acid 4.4 mg/dL (3.7-7.4)
[2017-12-07 15:49] LABS: Iron Saturation 77.08 (12.00-45.00)
[2017-12-07 15:58] LABS: Vitamin D 25 Hydroxy 35.6 ng/mL (30.0-100.0)
[2017-12-07 16:00] LABS: Parathyroid Hormone Intact 73.5 pg/mL (14.0-72.0)
[2017-12-07 17:05] LABS: Hemoglobin A1C 8.6 % (4.0-6.0)
== END | disposition home or self-care (01) ==
LOC: LABWHC1 10:51
PROVIDERS: ATTEND Nurse Practitioner Family
DX: E78.2 Mixed hyperlipidemia (principal); E55.9 Vitamin D deficiency, unspecified; E21.3 Hyperparathyroidism, unspecified; M10.9 Gout, unspecified; N39.0 Urinary tract infection, site not specified; N18.3 Chronic kidney disease, stage 3 (moderate); D50.9 Iron deficiency anemia, unspecified; E11.22 Type 2 diabetes mellitus with diabetic chronic kidney disease
CPT/HCPCS: 36415; 80053; 80061; 81003; 82306; 82728; 83036; 83540; 83550; 83735; 83970; 84100; 84550; 85025

== ENCOUNTER → 2018-01-09 | Outpatient (CLI) | payer MEDICARE, OTHER ==
[2018-01-09 14:22] LABS: Basophils % (A) 0 %; Eosinophils # (A) 0.2 k/uL (0-0.7); Eosinophils % (A) 2 %; HCT 40.2 % (34.0-46.0); HGB 12.7 gm/dL (11.4-16.0); Lymphocytes # (A) 2.4 k/uL (1.0-4.8); Lymphocytes % (A) 24 %; MCH 30.4 pg (25.0-35.0); MCHC 31.7 g/dL (31.0-37.0); Mean Platelet Volume 8.3; Monocytes # (A) 1.2 k/uL (0-1.0); Monocytes % (A) 12 %; Neutrophils % (A) 59 %; Platelet Count 183 k/uL (150-450); RBC 4.19 m/uL (3.80-5.40); RDW 13.5 % (11.5-15.5); WBC 10.1 k/uL (3.8-10.6)
[2018-01-09 14:36] LABS: Phosphorus 3.8 mg/dL (2.5-4.5); Potassium 5.3 mmol/L (3.5-5.1); Uric Acid 5.8 mg/dL (3.7-7.4)
[2018-01-09 14:46] LABS: Amorphous Sediment,Urine Rare /hpf; Appearance,Urine Cloudy (Clear); Bacteria,Urine Occasional /hpf; Bilirubin,Urine Negative (Negative); Blood,Urine Negative (Negative); Color,Urine Yellow; Glucose,Urine (UA) 3+ (Negative); Hyaline Casts,Urine 19 /lpf (0-2); Ketones,Urine Negative (Negative); Leukocyte Esterase,Urine Trace (Negative); Mucus,Urine Rare /hpf; PH, Urine 5.5 (5.0-8.0); Protein,Urine Trace (Negative); RBC,Urine 1 /hpf (0-5); Specific Gravity,Urine 1.016 (1.001-1.035); Squamous Epithelial Cell,Urine 13 /hpf (0-4); Urobilinogen,Urine <2.0 mg/dL (<2.0); WBC,Urine 5 /hpf (0-5)
[2018-01-09 19:56] LABS: Iron Saturation 33.44 (12.00-45.00)
[2018-01-09 20:56] LABS: Parathyroid Hormone Intact 149.1 pg/mL (14.0-72.0)
== END | disposition home or self-care (01) ==
LOC: LABWHC1 13:32
PROVIDERS: ATTEND Nurse Practitioner Family
DX: N39.0 Urinary tract infection, site not specified (principal); M10.9 Gout, unspecified; E21.3 Hyperparathyroidism, unspecified; E55.9 Vitamin D deficiency, unspecified; E11.22 Type 2 diabetes mellitus with diabetic chronic kidney disease; N18.3 Chronic kidney disease, stage 3 (moderate); D50.9 Iron deficiency anemia, unspecified
CPT/HCPCS: 36415; 80048; 81001; 82728; 83540; 83550; 83735; 83970; 84100; 84550; 85025

== ENCOUNTER → 2018-02-15 | Outpatient (CLI) | payer MEDICARE, OTHER | END | disposition home or self-care (01) | LOC: LABWHC1 14:21 | PROVIDERS: ATTEND Internal Medicine | DX: E87.5 Hyperkalemia (principal) | CPT/HCPCS: 36415; 84132 ==

== ENCOUNTER → 2018-03-01 | Outpatient (CLI) | payer MEDICARE, OTHER ==
[2018-03-01 15:14] LABS: Calcium 8.7 mg/dL (8.4-10.2); Potassium 5.1 mmol/L (3.5-5.1)
== END | disposition home or self-care (01) ==
LOC: LABWHC1 14:46
PROVIDERS: ATTEND Nurse Practitioner Family
DX: N18.3 Chronic kidney disease, stage 3 (moderate) (principal)
CPT/HCPCS: 36415; 80048

== ENCOUNTER → 2018-03-28 | Outpatient (CLI) | payer MEDICARE, OTHER ==
[2018-03-28 15:03] LABS: Appearance,Urine Clear (Clear); Basophils # (A) 0.1 k/uL (0-0.2); Basophils % (A) 1 %; Bilirubin,Urine Negative (Negative); Blood,Urine Negative (Negative); Color,Urine Light Yellow; Eosinophils # (A) 0.2 k/uL (0-0.7); Eosinophils % (A) 2 %; Glucose,Urine (UA) Negative (Negative); HCT 38.6 % (34.0-46.0); HGB 12.1 gm/dL (11.4-16.0); Ketones,Urine Negative (Negative); Leukocyte Esterase,Urine Negative (Negative); Lymphocytes # (A) 2.4 k/uL (1.0-4.8); Lymphocytes % (A) 23 %; MCH 30.7 pg (25.0-35.0); MCHC 31.2 g/dL (31.0-37.0); MCV 98.3 fL (80.0-100.0); Macrocytosis Slight; Mean Platelet Volume 8.2; Monocytes # (A) 1.4 k/uL (0-1.0); Monocytes % (A) 14 %; Neutrophils # (A) 5.8 k/uL (1.3-7.7); Neutrophils % (A) 58 %; Nitrite,Urine Negative (Negative); Platelet Count 202 k/uL (150-450); Protein,Urine Negative (Negative); RBC 3.93 m/uL (3.80-5.40); RDW 14.9 % (11.5-15.5); Specific Gravity,Urine 1.006 (1.001-1.035); Urobilinogen,Urine <2.0 mg/dL (<2.0); WBC 10.2 k/uL (3.8-10.6)
[2018-03-28 15:14] LABS: Calcium 9.6 mg/dL (8.4-10.2); Magnesium 1.9 mg/dL (1.6-2.3); Phosphorus 3.9 mg/dL (2.5-4.5); Potassium 5.6 mmol/L (3.5-5.1)
[2018-03-28 17:58] LABS: Iron Saturation 48.82 (12.00-45.00)
[2018-03-28 18:02] LABS: Parathyroid Hormone Intact 80.7 pg/mL (14.0-72.0)
[2018-03-28 18:06] LABS: Vitamin D 25 Hydroxy 52.3 ng/mL (30.0-100.0)
[2018-03-28 19:15] LABS: Hemoglobin A1C 8.3 % (4.0-6.0)
== END ==
LOC: LABWHC1 13:50
PROVIDERS: ATTEND Nurse Practitioner Family
DX: E55.9 Vitamin D deficiency, unspecified (principal); N18.3 Chronic kidney disease, stage 3 (moderate); E11.22 Type 2 diabetes mellitus with diabetic chronic kidney disease; N25.81 Secondary hyperparathyroidism of renal origin; D50.9 Iron deficiency anemia, unspecified; M10.9 Gout, unspecified
CPT/HCPCS: 36415; 80048; 81003; 82306; 82728; 83036; 83540; 83550; 83735; 83970; 84100; 84550; 85025

== ENCOUNTER → 2018-04-12 | Outpatient (CLI) | payer MEDICARE, OTHER | END | disposition home or self-care (01) | LOC: LABWHC1 15:52 | PROVIDERS: ATTEND Nurse Practitioner Family | DX: E87.5 Hyperkalemia (principal) | CPT/HCPCS: 36415; 84132 ==

== ENCOUNTER → 2018-05-03 | Outpatient (CLI) | payer MEDICARE, OTHER ==
[2018-05-03 14:08] LABS: Appearance,Urine Cloudy (Clear); Bacteria,Urine Occasional /hpf; Bilirubin,Urine Negative (Negative); Blood,Urine Moderate (Negative); Budding Yeast,Urine Occasional /hpf; Color,Urine Yellow; Glucose,Urine (UA) Negative (Negative); Hyaline Casts,Urine 7 /lpf (0-2); Ketones,Urine Negative (Negative); Leukocyte Esterase,Urine Small (Negative); Mucus,Urine Rare /hpf; Nitrite,Urine Negative (Negative); PH, Urine 5.5 (5.0-8.0); Protein,Urine 1+ (Negative); RBC,Urine 1 /hpf (0-5); Specific Gravity,Urine 1.017 (1.001-1.035); Squamous Epithelial Cell,Urine 5 /hpf (0-4); WBC,Urine 6 /hpf (0-5)
[2018-05-03 14:11] LABS: Basophils % (A) 0 %; Eosinophils # (A) 0.2 k/uL (0-0.7); Eosinophils % (A) 2 %; HCT 31.7 % (34.0-46.0); Hypochromasia Slight; Lymphocytes # (A) 1.8 k/uL (1.0-4.8); Lymphocytes % (A) 19 %; MCH 31.3 pg (25.0-35.0); MCHC 31.1 g/dL (31.0-37.0); MCV 100.9 fL (80.0-100.0); Macrocytosis Slight; Mean Platelet Volume 7.8; Monocytes # (A) 0.9 k/uL (0-1.0); Monocytes % (A) 10 %; Neutrophils # (A) 6.5 k/uL (1.3-7.7); Neutrophils % (A) 67 %; Platelet Count 188 k/uL (150-450); RBC 3.14 m/uL (3.80-5.40); RDW 15.6 % (11.5-15.5); WBC 9.7 k/uL (3.8-10.6)
[2018-05-03 14:14] LABS: HGB 9.8 gm/dL (11.4-16.0)
[2018-05-03 14:19] LABS: Calcium 8.8 mg/dL (8.4-10.2); Phosphorus 3.5 mg/dL (2.5-4.5); Potassium 5.8 mmol/L (3.5-5.1); Uric Acid 4.8 mg/dL (3.7-7.4)
[2018-05-03 18:43] LABS: Iron Saturation 24.73 (12.00-45.00)
[2018-05-03 18:51] LABS: Vitamin D 25 Hydroxy 54.6 ng/mL (30.0-100.0)
[2018-05-03 19:13] LABS: Parathyroid Hormone Intact 68.6 pg/mL (14.0-72.0)
[2018-05-03 20:31] LABS: Hemoglobin A1C 7.4 % (4.0-6.0)
== END | disposition home or self-care (01) ==
LOC: LABWHC1 12:57
PROVIDERS: ATTEND Nurse Practitioner Family
DX: N39.0 Urinary tract infection, site not specified (principal); M10.9 Gout, unspecified; E55.9 Vitamin D deficiency, unspecified; N25.81 Secondary hyperparathyroidism of renal origin; D50.9 Iron deficiency anemia, unspecified; E11.22 Type 2 diabetes mellitus with diabetic chronic kidney disease; N18.3 Chronic kidney disease, stage 3 (moderate)
CPT/HCPCS: 36415; 80048; 81001; 82306; 82728; 83036; 83540; 83550; 83735; 83970; 84100; 84550; 85025; 87086

== ENCOUNTER → 2018-05-17 | Outpatient (CLI) | payer MEDICARE, OTHER | END | disposition home or self-care (01) | LOC: LABWHC1 14:25 | PROVIDERS: ATTEND Nurse Practitioner Family | DX: E87.5 Hyperkalemia (principal) | CPT/HCPCS: 36415; 84132 ==

== ENCOUNTER → 2018-05-31 | Outpatient (CLI) | payer MEDICARE, OTHER ==
[2018-05-31 16:07] LABS: Appearance,Urine Clear (Clear); Bilirubin,Urine Negative (Negative); Blood,Urine Negative (Negative); Color,Urine Yellow; Glucose,Urine (UA) Negative (Negative); Ketones,Urine Negative (Negative); Leukocyte Esterase,Urine Negative (Negative); Nitrite,Urine Negative (Negative); PH, Urine 5.5 (5.0-8.0); Protein,Urine Trace (Negative); Specific Gravity,Urine 1.009 (1.001-1.035); Urobilinogen,Urine <2.0 mg/dL (<2.0)
[2018-05-31 16:08] LABS: Basophils % (A) 0 %; Eosinophils # (A) 0.2 k/uL (0-0.7); Eosinophils % (A) 3 %; HCT 28.3 % (34.0-46.0); HGB 8.7 gm/dL (11.4-16.0); Hypochromasia Moderate; Lymphocytes # (A) 1.7 k/uL (1.0-4.8); Lymphocytes % (A) 22 %; MCH 30.7 pg (25.0-35.0); MCHC 30.6 g/dL (31.0-37.0); MCV 100.4 fL (80.0-100.0); Macrocytosis Slight; Mean Platelet Volume 8.1; Monocytes % (A) 13 %; Neutrophils # (A) 4.5 k/uL (1.3-7.7); Neutrophils % (A) 59 %; Platelet Count 169 k/uL (150-450); RBC 2.82 m/uL (3.80-5.40); RDW 14.9 % (11.5-15.5); WBC 7.6 k/uL (3.8-10.6)
[2018-05-31 16:19] LABS: Calcium 8.4 mg/dL (8.4-10.2); Magnesium 1.9 mg/dL (1.6-2.3); Phosphorus 4.1 mg/dL (2.5-4.5); Potassium 4.3 mmol/L (3.5-5.1); Uric Acid 5.9 mg/dL (3.7-7.4)
[2018-06-01 00:43] LABS: Parathyroid Hormone Intact 122.9 pg/mL (14.0-72.0)
[2018-06-01 00:50] LABS: Iron Saturation 35.46 (12.00-45.00)
[2018-06-01 01:04] LABS: Vitamin D 25 Hydroxy 84.8 ng/mL (30.0-100.0)
[2018-06-01 01:13] LABS: Hemoglobin A1C 6.6 % (4.0-6.0)
== END | disposition home or self-care (01) ==
LOC: LABWHC1 15:24
PROVIDERS: ATTEND Nurse Practitioner Family
DX: N18.3 Chronic kidney disease, stage 3 (moderate) (principal); E11.9 Type 2 diabetes mellitus without complications; N25.81 Secondary hyperparathyroidism of renal origin; E79.0 Hyperuricemia without signs of inflammatory arthritis and tophaceous disease; D50.9 Iron deficiency anemia, unspecified; E55.9 Vitamin D deficiency, unspecified; N39.0 Urinary tract infection, site not specified
CPT/HCPCS: 36415; 80048; 81003; 82306; 82728; 83036; 83540; 83550; 83735; 83970; 84100; 84550; 85025

== ENCOUNTER 2018-07-10 09:29 | Inpatient (IN) | payer MEDICARE, OTHER ==
[2018-07-10] MEDS ORDERED: SODIUM CHLORIDE 0.9% 500 ML IV STA (09:54)
[2018-07-10] MEDS ORDERED: hydrALAZINE HCL 20 MG/ML 1 ML VIAL IVP STA ×2 (09:54→13:19)
--- NOTE | 2018-07-10 09:59 | ED ---
General Adult HPI - General Chief complaint: Neuro Symptoms/Deficit Stated complaint: Right sided weakness Time Seen by Provider: 07/10/18 09:40 Source: EMS, RN notes reviewed Mode of arrival: EMS Limitations: no limitations - History of Present Illness Initial comments: This is a 73-year-old female presents emergency department with past medical history significant for stroke. Patient was last seen normal last evening she woke up this morning she had left-sided facial droop and right-sided arm and leg weakness. According to the daughter who is now in the room her facial droop is completely resolved. Patient continues to have right arm and leg weakness more prominent in the arm than the leg. Patient denies any visual disturbancesdisturbances no chest pain difficult breathing or shortness of breath. Patient denies any recent fever chills or cough. Patient denies any injury or trauma. Patient denies any recent fever chills or cough. - Related Data Home Medications Medication Instructions Recorded Confirmed Aspirin EC [Ecotrin Low Dose] 162 mg PO DAILY 12/04/14 07/03/18 Atorvastatin [Lipitor] 10 mg PO DAILY 12/04/14 07/03/18 Ergocalciferol [Vitamin D2 50,000 unit PO [id number] 12/04/14 07/03/18 (DRISDOL)] Melatonin 3 mg PO HS PRN 12/04/14 07/03/18 Omeprazole 40 mg PO AC-BRKFST 12/04/14 07/03/18 clonazePAM [KlonoPIN] 0.5 mg PO TID 12/04/14 07/03/18 Acetaminophen Tab [Tylenol] 1,000 mg PO Q6HR PRN 07/20/15 07/03/18 Albuterol Inhaler [Ventolin Hfa 2 puff INHALATION RT-HS 07/20/15 07/03/18 Inhaler] FLUoxetine HCL [PROzac] 40 mg PO DAILY 07/20/15 07/03/18 Hypromellose [Artificial Tears] 1 drop BOTH EYES DAILY PRN 07/20/15 07/03/18 Allopurinol [Zyloprim] 100 mg PO DAILY 06/01/17 07/03/18 Calcitriol [Rocaltrol] 0.25 mcg PO SAEED 06/01/17 07/03/18 Docusate [Colace] 100 mg PO Q48H 06/01/17 07/03/18 Donepezil [Aricept] 5 mg PO DAILY 06/01/17 07/03/18 Ferrous Sulfate [Iron (65 MG 325 mg PO DAILY 06/01/17 07/03/18 Elemental)] Insulin Glargine,Hum.rec.anlog 30 unit SQ HS 06/01/17 07/03/18 [Lantus Solostar] Metoprolol Tartrate [Lopressor] 25 mg PO BID 06/01/17 07/03/18 Ondansetron [Zofran] 4 mg PO TID 06/01/17 07/03/18 Triamcinolone 0.1% Cream [Kenalog 1 applicatio TOPICAL BID 06/01/17 07/03/18 0.1% Cream] Furosemide [Lasix] 20 mg PO DAILY 07/03/18 07/03/18 Lisinopril [Prinivil] 10 mg PO DAILY 07/03/18 07/03/18 Losartan Potassium [Cozaar] 25 mg PO DAILY 07/03/18 07/03/18 Ranitidine HCl [Zantac] 75 mg PO DAILY 07/03/18 07/03/18 Allergies Allergy/AdvReac Type Severity Reaction Status Date / Time benztropine mesylate Allergy Unknown Verified 07/03/18 14:29 [From Cogentin] metoclopramide HCl Allergy Unknown Verified 07/03/18 14:29 [From Reglan] prochlorperazine edisylate Allergy Unknown Verified 07/03/18 14:29 [From Compazine] prochlorperazine maleate Allergy Unknown Verified 07/03/18 14:29 [From Compazine] Review of Systems ROS Statement: Those systems with pertinent positive or pertinent negative responses have been documented in the HPI. ROS Other: All systems not noted in ROS Statement are negative. Past Medical History Past Medical History: Blood Disorder, Coronary Artery Disease (CAD), CVA/TIA, Dementia, Diabetes Mellitus, Hyperlipidemia, Hypertension, Renal Disease Additional Past Medical History / Comment(s): pt poor historian: renal failure , gout, cerebral bleed. POTASSIUM ISSUES. History of Any Multi-Drug Resistant Organisms: None Reported Past Surgical History: Coronary Bypass/CABG, Hysterectomy Additional Past Surgical History / Comment(s): carotid endarectmy, trach, craniotomy Past Anesthesia/Blood Transfusion Reactions: No Reported Reaction Past Psychological History: No Psychological Hx Reported Smoking Status: Former smoker Past Alcohol Use History: None Reported Past Drug Use History: None Reported - Past Family History Father Family Medical History: Unable to Obtain General Exam - General Exam Comments Initial Comments: GENERAL: Patient is well-developed and well-nourished. Patient is nontoxic and well- hydrated and is in mild distress. ENT: Neck is soft and supple. No significant lymphadenopathy is noted. Oropharynx is clear. Moist mucous membranes. Neck has full range of motion without eliciting any pain. EYES: The sclera were anicteric and conjunctiva were pink and moist. Extraocular movements were intact and pupils were equal round and reactive to light. Eyelids were unremarkable. PULMONARY: Unlabored respirations. Good breath sounds bilaterally. No audible rales rhonchi or wheezing was noted. CARDIOVASCULAR: There is a regular rate and rhythm without any murmurs gallops or rubs. ABDOMEN: Soft and nontender with normal bowel sounds. No palpable organomegaly was noted. There is no palpable pulsatile mass. SKIN: Skin is clear with no lesions or rashes and otherwise unremarkable. NEUROLOGIC: Patient is alert and oriented x3. Cranial nerves II through XII are grossly intact. 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 Patient also has left leg weakness she was only able to lift her leg off the bed a couple of inches. Plantar and dorsiflexion however are normal. Patient has no slurred speech. MUSCULOSKELETAL: Normal extremities with adequate strength and full range of motion. No lower extremity swelling or edema. No calf tenderness. LYMPHATICS: No significant lymphadenopathy is noted PSYCHIATRIC: Normal psychiatric evaluation. Normal interpersonal interactions appears functionally intact in deals appropriately with others. No signs of depression. No signs of anxiety. Limitations: no limitations Course Vital Signs 07/10/18 07/10/18 07/10/18 09:41 10:04 11:20 Temperature 97.3 F L Pulse Rate 53 L 53 L 55 L Respiratory 24 20 21 Rate Blood Pressure 232/96 194/80 173/75 O2 Sat by Pulse 99 98 Oximetry Medical Decision Making - Medical Decision Making EKG shows sinus bradycardia 51 bpm MN interval is 224 QRS is 96 QT interval is 540 QTC is 497. EKG shows no ST segment elevation or depression or T wave abnormalities are noted Chest x-ray shows no acute abnormality. Computed tomography scan of the brain shows old infarcts only no acute infarct noted. Patient continues to have right-sided weakness. I spoke with Dr. Larios he agreed to admit the patient admitted the patient I wrote admitting orders. I consult the Dr. Cat. - Lab Data Result diagrams: 07/10/18 09:53 07/10/18 09:53 Lab Results 07/10/18 07/10/18 07/10/18 Range/Units 09:53 09:53 09:53 WBC 7.2 (3.8-10.6) k/uL RBC 3.37 L (3.80-5.40) m/uL Hgb 10.0 L (11.4-16.0) gm/dL Hct 32.7 L (34.0-46.0) % MCV 97.0 (80.0-100.0) fL MCH 29.7 (25.0-35.0) pg MCHC 30.6 L (31.0-37.0) g/dL RDW 14.6 (11.5-15.5) % Plt Count 175 (150-450) k/uL Neutrophils % 63 % Lymphocytes % 17 % Monocytes % 11 % Eosinophils % 4 % Basophils % 1 % Neutrophils # 4.6 (1.3-7.7) k/uL Lymphocytes # 1.3 (1.0-4.8) k/uL Monocytes # 0.8 (0-1.0) k/uL Eosinophils # 0.3 (0-0.7) k/uL Basophils # 0.0 (0-0.2) k/uL Hypochromasia Moderate PT (9.0-12.0) sec INR (<1.2) APTT (22.0-30.0) sec Sodium 139 (137-145) mmol/L Potassium 4.2 (3.5-5.1) mmol/L Chloride 104 (98-107) mmol/L Carbon Dioxide 27 (22-30) mmol/L Anion Gap 8 mmol/L BUN 25 H (7-17) mg/dL Creatinine 1.43 H (0.52-1.04) mg/dL Est GFR (CKD-EPI)AfAm 41 (>60 ml/min/1.73 sqM) Est GFR (CKD-EPI)NonAf 36 (>60 ml/min/1.73 sqM) Glucose 106 H (74-99) mg/dL POC Glucose (mg/dL) (75-99) mg/dL POC Glu Dispatcher Clerk ID Calcium 8.8 (8.4-10.2) mg/dL Total Bilirubin 0.3 (0.2-1.3) mg/dL AST 28 (14-36) U/L ALT 26 (9-52) U/L Alkaline Phosphatase 74 (38-126) U/L Total Creatine Kinase 36 (30-135) U/L CK-MB (CK-2) 0.6 (0.0-2.4) ng/mL CK-MB (CK-2) Rel Index 1.7 Troponin I 0.020 (0.000-0.034) ng/mL Total Protein 6.2 L (6.3-8.2) g/dL Albumin 3.2 L (3.5-5.0) g/dL 07/10/18 07/10/18 Range/Units 09:53 09:53 WBC (3.8-10.6) k/uL RBC (3.80-5.40) m/uL Hgb (11.4-16.0) gm/dL Hct (34.0-46.0) % MCV (80.0-100.0) fL MCH (25.0-35.0) pg MCHC (31.0-37.0) g/dL RDW (11.5-15.5) % Plt Count (150-450) k/uL Neutrophils % % Lymphocytes % % Monocytes % % Eosinophils % % Basophils % % Neutrophils # (1.3-7.7) k/uL Lymphocytes # (1.0-4.8) k/uL Monocytes # (0-1.0) k/uL Eosinophils # (0-0.7) k/uL Basophils # (0-0.2) k/uL Hypochromasia PT 10.1 (9.0-12.0) sec INR 1.0 (<1.2) APTT 20.9 L (22.0-30.0) sec Sodium (137-145) mmol/L Potassium (3.5-5.1) mmol/L Chloride (98-107) mmol/L Carbon Dioxide (22-30) mmol/L Anion Gap mmol/L BUN (7-17) mg/dL Creatinine (0.52-1.04) mg/dL Est GFR (CKD-EPI)AfAm (>60 ml/min/1.73 sqM) Est GFR (CKD-EPI)NonAf (>60 ml/min/1.73 sqM) Glucose (74-99) mg/dL POC Glucose (mg/dL) 110 H (75-99) mg/dL POC Glu Dispatcher Clerk ID Samira Vanegas Calcium (8.4-10.2) mg/dL Total Bilirubin (0.2-1.3) mg/dL AST (14-36) U/L ALT (9-52) U/L Alkaline Phosphatase (38-126) U/L Total Creatine Kinase (30-135) U/L CK-MB (CK-2) (0.0-2.4) ng/mL CK-MB (CK-2) Rel Index Troponin I (0.000-0.034) ng/mL Total Protein (6.3-8.2) g/dL Albumin (3.5-5.0) g/dL Disposition Clinical Impression: Cerebrovascular accident Disposition: ADMITTED IP TO THIS HOSP Referrals: Wiliam Calderon DO [Primary Care Provider] - 1-2 days Time of Disposition: 11:49
[2018-07-10 10:01] LABS: Glucose,Whole Blood 110 mg/dL (75-99)
[2018-07-10 10:09] LABS: Basophils % (A) 1 %; Eosinophils # (A) 0.3 k/uL (0-0.7); Eosinophils % (A) 4 %; HCT 32.7 % (34.0-46.0); Hypochromasia Moderate; Lymphocytes # (A) 1.3 k/uL (1.0-4.8); Lymphocytes % (A) 17 %; MCH 29.7 pg (25.0-35.0); MCHC 30.6 g/dL (31.0-37.0); Mean Platelet Volume 7.9; Monocytes # (A) 0.8 k/uL (0-1.0); Monocytes % (A) 11 %; Neutrophils # (A) 4.6 k/uL (1.3-7.7); Neutrophils % (A) 63 %; Platelet Count 175 k/uL (150-450); RBC 3.37 m/uL (3.80-5.40); RDW 14.6 % (11.5-15.5); WBC 7.2 k/uL (3.8-10.6)
[2018-07-10 10:20] LABS: Prothrombin Time 10.1 sec (9.0-12.0)
[2018-07-10 10:21] LABS: Albumin 3.2 g/dL (3.5-5.0); Calcium 8.8 mg/dL (8.4-10.2); Potassium 4.2 mmol/L (3.5-5.1); Total Bilirubin 0.3 mg/dL (0.2-1.3); Total Protein 6.2 g/dL (6.3-8.2)
[2018-07-10 10:25] LABS: Partial Thromboplastin Time 20.9 sec (22.0-30.0)
[2018-07-10 10:37] LABS: Creatine Kinase MB 0.6 ng/mL (0.0-2.4); Troponin I 0.02 ng/mL (0.000-0.034)
--- NOTE | 2018-07-10 11:03 | CT ---
EXAMINATION TYPE: CT brain wo con DATE OF EXAM: 07/10/2018 COMPARISON: 07/19/2015 INDICATION: Right sided weakness, Dementia, CVA/TIA DLP: 1180 mGycm, Automated exposure control for dose reduction was used. CONTRAST: None CT of the brain is performed utilizing 3 mm thick sections through the posterior fossa and 3 mm thick sections through the remaining calvarium. Study is performed within 24 hours of arrival to the hosp ital. No abnormal hyperdensity is present to suggest an acute intracranial hemorrhage. No mass lesion is evident. No acute infarcts are evident. There is an old infarct along the inferior medial left cerebellum. Chr onic periventricular white matter changes are through the right parietal-occipital region. There is a n old infarct in the right parietal-occipital watershed area. There is confluent periventricular whit e matter changes are present, present previously. There is an old right caudate head lacunar infarct. Ventricles and sulci are appropriate for the patient age. Some ex vacuo effect on the lateral ventri cles is evident. Paranasal sinuses and mastoid air cells within the [id number] are clear. IMPRESSIONS: 1. Old cerebellar, right frontal parietal and right occipital infarcts. 2. Chronic appearing periventricular white matter ischemic changes, stable. 3. No acute intracranial process
--- NOTE | 2018-07-10 11:23 | XR ---
EXAMINATION TYPE: XR chest 2V DATE OF EXAM: 07/10/2018 COMPARISON: Prior chest x-ray 06/01/2017 HISTORY: Altered mental status TECHNIQUE: Frontal and lateral views of the chest are obtained. FINDINGS: Patient is post median sternotomy. Interstitium is increased. Prominent lung volumes could be indicative of COPD. Proximal left humerus shows arthropathy change, possible synovial osteochondr omatosis, similar findings. No pneumothorax or sizable effusion. Heart is enlarged. Central vasculari ty is increased. IMPRESSION: Correlate for pulmonary venous hypertension and interstitial edema. Follow-up is recomme nded.
[2018-07-10] MEDS ORDERED: ASPIRIN 325 MG TAB PO STA (11:49)
[2018-07-10] MEDS ORDERED: LORazepam 2 MG/ML INJ IV STA (14:38)
[2018-07-10] MEDS ORDERED: ONDANSETRON 4 MG/2 ML VIAL IVP STA (14:38)
[2018-07-10] MEDS ORDERED: ENALAPRILAT 1.25 MG/ML 1 ML VIAL IVP STA ×2 (15:12→15:23)
[2018-07-10 16:55] LABS: Glucose,Whole Blood 125 mg/dL (75-99)
[2018-07-10] MEDS ORDERED: MELATONIN 3 MG TABLET PO PRN (17:02)
[2018-07-10] MEDS ORDERED: TRIAMCINOLONE 0.1% CREAM 80 GM TUBE TOPICAL PRN (17:02)
[2018-07-10] MEDS ORDERED: ALBUTEROL NEBULIZED 2.5 MG/3 ML INHALATION PRN (17:02)
--- NOTE | 2018-07-10 18:14 | MR ---
EXAMINATION TYPE: MR brain wo con DATE OF EXAM: 07/10/2018 COMPARISON: None HISTORY: Weakness. Possible CVA. Standard multiplanar, multisequence MRI departmental protocol Multiplanar, multisequence images of the were acquired. Diffusion weighted imaging was performed. FINDINGS: There is abnormal increased signal in a large area of the left cerebellar hemisphere. There is similar abnormal increased signal on the T2 images of in the right posterior frontal lobe. This m easures 4 x 4 centimeters. There is a 3 x 2 cm area of old infarct also in the medial right occipital lobe. There is no midline shift. There is patchy increased signal in the periventricular white matte r with extensive coalescent areas. There is thinning of the corpus callosum. The brainstem appears in tact. Sella turcica appears intact. There is mild enlargement of the ventricles. There is cerebral co rtical atrophy. IMPRESSION: Moderate-sized old 4 cm infarcts involving the right posterior frontal lobe and encephalomalacia and ischemic change in the left cerebellar hemisphere. Old infarct right occipital lobe. Cerebral atrophy . Moderate chronic small vessel ischemia. Brain appears not significantly different than old CT scan of 07/19/2015. No acute intracranial abnormality.
[2018-07-10] MEDS ORDERED: ATORVASTATIN 10 MG TAB PO SCH (20:00)
[2018-07-10 20:09] LABS: Glucose,Whole Blood 122 mg/dL (75-99)
[2018-07-10] MEDS: ALBUTEROL NEBULIZED 2.5 MG/3 ML INHALATION SCH (20:19)
[2018-07-10] MEDS: INSULIN DETEMIR 100 UNIT/ML 10 ML VIAL SQ SCH (20:31)
[2018-07-10] MEDS: ONDANSETRON 4 MG TAB PO SCH (20:33)
[2018-07-10] MEDS: clonazePAM 0.5 MG TAB PO SCH (20:33)
--- NOTE | 2018-07-10 20:45 | CONS ---
CONSULTATION DATE OF CONSULTATION: 07/10/2018 CHIEF COMPLAINT: Stroke. HISTORY OF PRESENT ILLNESS: Mrs. Jarvis is a pleasant 73-year-old female who is being evaluated by the neurology service per the request of Dr. Larios for a stroke. The patient was brought into [facility] Emergency Room after she woke up with symptoms of right-sided weakness. Her family states that they had also noticed some facial drooping on the left side, but she was not moving her right upper or lower extremity. She does have a previous history of stroke, but her symptoms had resolved. She does take aspirin 162 mg daily at home. A CT scan of the brain was done which showed no acute abnormalities. There was evidence of an old cerebellar stroke, right occipital stroke, and right frontal parietal region stroke along with small-vessel ischemic changes. Her comprehensive metabolic profile showed renal insufficiency with a BUN of 25 and creatinine of 1.43. Her INR and cardiac enzymes were normal. Her CBC showed anemia with a hemoglobin of 10.0 and hematocrit of 32%. An MRI of the brain has been ordered. On evaluation, the patient is lying in her bed and appears to be in no acute distress. She is still having significant right hemiparesis, but her facial drooping has resolved. She denies any headache or visual changes. PAST MEDICAL HISTORY: 1. Stroke. 2. Coronary artery disease. 3. Dementia. 4. Diabetes. 5. Dyslipidemia. 6. Hypertension. 7. Chronic renal insufficiency. 8. Gout. 9. History of intracranial hemorrhage. 10.Coronary artery bypass grafting. 11.Hysterectomy. 12.Carotid endarterectomy. 13.Craniotomy. SOCIAL HISTORY: The patient is a former smoker. She denies any alcohol or drug use. FAMILY HISTORY: Noncontributory. HOME MEDICATIONS: Reviewed in the chart. ALLERGIES: 1. COGENTIN. 2. REGLAN. 3. COMPAZINE. REVIEW OF SYSTEMS: CONSTITUTIONAL: Positive for fatigue. EYES: Negative. ENT: Negative. CARDIOVASCULAR: Negative. RESPIRATORY: Negative. NEUROLOGICAL: As mentioned above. GASTROINTESTINAL: Positive for mild nausea. GENITOURINARY: Negative. PSYCHIATRIC: Negative. ENDOCRINE: Positive for diabetes. DERMATOLOGICAL: Negative. MUSCULOSKELETAL: Positive for occasional joint pain. PHYSICAL EXAMINATION: Vital signs show a temperature of 96.6, pulse 58, respiration 18, blood pressure 162/108. GENERAL APPEARANCE: The patient is a well-developed elderly female who appears to be in no acute distress. HEENT: Normocephalic, atraumatic. No facial asymmetry is seen. NECK: Supple with no masses felt. CARDIOVASCULAR: Bradycardic rate with a regular rhythm. ABDOMEN: Nontender, nondistended. Extremities showed no edema or clubbing. NEUROLOGICAL EXAM: The patient is awake and oriented to person and place. She could not recall the year. Speech is normal. Language testing showed slightly reduced comprehension. Naming and repetition are intact and fluency is normal. Strength is 1/5 in the right upper and lower extremities and 5 minus out of 5 on the left upper and lower extremities. Sensory exam was normal to light touch in all 4 extremities. No facial asymmetry is seen on cranial nerve testing. IMPRESSION: 1. Acute ischemic stroke, left middle cerebral artery distribution. 2. Right hemiparesis. 3. Mild receptive aphasia. 4. History of previous ischemic stroke. 5. Uncontrolled hypertension. 6. Chronic renal insufficiency. RECOMMENDATION: The patient does appear to have suffered an acute ischemic stroke involving the left middle cerebral artery distribution. She continues to have right significant hemiparesis and mild receptive aphasia. She was on aspirin 162 mg daily at home. I will discontinue aspirin and start her on Plavix 75 mg daily. There is a significant [id number] interaction with Plavix and Prozac. I will discontinue Prozac and I do recommend a psychiatric consultation to recommend a different antidepressant. I will order a fasting lipid panel, serum homocystine level, carotid Doppler, and EEG. Her MRI of the brain is pending. Physical Therapy has been consulted. I do recommend Protonix for GI prophylaxis and heparin for DVT prophylaxis. Continue neuro checks. I will continue to follow with you. Further recommendations to follow. Thank you for allowing me to participate in the care of your patient. If you have any questions, please feel free to contact me. MMODL / IJN: [id number] /
--- NOTE | 2018-07-10 23:06 | HP ---
HISTORY AND PHYSICAL DATE OF ADMISSION: 07/10/2018 DATE OF SERVICE: 07/10/2018 PRESENTING COMPLAINT: Weakness on the right side. HISTORY OF PRESENTING COMPLAINT: This is a pleasant 73-year-old patient who presented to the ER this morning. The patient felt normal last evening. When she woke up this morning she had some left-sided facial droop and right arm and leg weakness. The facial droop since has resolved when she presented to the ER. Speech is also slow. There are no vision changes. Patient's CT scan of the brain showed areas of multiple infarcts in the past. Patient had no trouble swallowing earlier. Denied any chest pain or palpitations. The right-sided weakness has not progressed or gotten worse; remains the same. Patient had been taking aspirin at home. REVIEW OF SYSTEMS: CONSTITUTIONAL: None. HEENT: None. RESPIRATORY: Occasional wheezing. CARDIOVASCULAR: None. GASTROINTESTINAL: None. GENITOURINARY: None. MUSCULOSKELETAL: Arthritic pain in joints. DERMATOLOGICAL: None. HEMATOLOGICAL: None. LYMPHATICS: None. PSYCHIATRY: None. NEUROLOGICAL: At her baseline uses a walker to get about. She needs help with her ADLs. PAST MEDICAL HISTORY: 1. Coronary artery disease. 2. COPD. 3. Stroke. 4. Dementia. 5. Diabetes. 6. GERD. 7. Hyperlipidemia. 8. Hypertension. 9. Osteoarthritis. 10.In 2008 had a stroke affecting her balance, coordination, some memory. 11.Patient also had a tracheostomy and a PEG tube. 12.Chronic kidney disease, stage III. 13.Low back pain. 14.Sciatica. 15.Gout. 16.Skin cancer. 17.Urinary incontinence. PAST SURGICAL HISTORY: 1. Back surgery. 2. Coronary artery bypass. 3. Cardiac catheterization. 4. Bilateral carotid endarterectomy. 5. Stroke; had posterior craniotomy. 6. Brain surgery for removal of blood clot. 7. Coronary artery bypass, 2011. 8. Two back surgeries. 9. Bilateral carpal tunnel release. 10.Bilateral cataracts removed. 11.Colonoscopy with benign polyps. 12.Skin cancer removed. SOCIAL HISTORY: Lives at [facility]. Uses a walker to get about. Needs help with her ADLs. Patient smoked for 45 years, stopped in 2009. No alcohol. FAMILY HISTORY: Father of a heart attack at age of 60. HOME MEDICATIONS: 1. Klonopin 0.5 mg p.o. t.i.d. 2. Kenalog 1 application topically b.i.d. p.r.n. 3. Zantac 75 mg p.o. daily. 4. Zofran 4 mg t.i.d. 5. Omeprazole 40 mg p.o. daily. 6. Lopressor 25 p.o. b.i.d. 7. Melatonin 3 mg p.o. at bedtime p.r.n. 8. Cozaar 25 mg p.o. daily. 9. Prinivil 10 mg p.o. daily. 10.Lantus 30 units subcutaneously at bedtime. 11.Artificial Tears 1 drop both eyes daily p.r.n. 12.Lasix 20 mg p.o. daily. 13.Iron 325 p.o. daily. 14.Prozac 40 mg p.o. daily. 15.Vitamin D2 50,000 units p.o. every 14 days. 16.Aricept 5 mg p.o. daily. 17.Colace 100 mg p.o. at bedtime. 18.Rocaltrol 0.25 mcg Sunday, , Sunday. 19.Lipitor 10 mg at bedtime. 20.Aspirin 162 mg p.o. daily. 21.Allopurinol 100 mg p.o. daily. 22.Ventolin 1 or 2 puffs q.4 p.r.n. ALLERGIES: 1. COGENTIN. 2. REGLAN. 3. COMPAZINE. PHYSICAL EXAMINATION: VITAL SIGNS ON PRESENTATION: Temperature 97.3, pulse 53, respiration 24, blood pressure 232/96, pulse ox 99% on 2 L. GENERAL APPEARANCE: Well built; BMI 31.3. Lying in bed, tired-appearing. EYES: Pupils equal. Conjunctivae normal. HEENT: External appearance of nose and ears normal. Oral cavity normal. NECK: JVD not raised. Mass not palpable. RESPIRATORY: Effort normal. LUNGS: Diminished breath sounds. CARDIOVASCULAR: First and second sounds normal. No edema. ABDOMEN: Soft, non-tender. Liver and spleen not palpable. LYMPHATIC: No lymph node palpable in neck or axillae. PSYCHIATRY: Alert and oriented x3. Mood and affect normal. NEUROLOGICAL: Pupils equal. No facial asymmetry. Speech is slow. Power in the right arm is 1/5, right leg 3/5. Reflexes are symmetrical. Sensation grossly preserved. INVESTIGATIONS: White count 7.2, hemoglobin 10, potassium 4.2, BUN 25, creatinine 1.43. Patient's BUN and creatinine were 26 and 1.10 back in May of last year. CT scan of the brain shows areas of stroke and encephalomalacia in multiple areas. Chest x-ray film interpreted by me shows some pulmonary venous hypertension. EKG tracing interpreted by me shows sinus rhythm with no specific ST-segment changes. MRI of the brain without contrast shows evidence of stroke in the frontal lobe, encephalomalacia, cerebral hemisphere in the right occipital lobe. ASSESSMENT: 1. Probable acute ischemic stroke in the left middle cerebral artery in a right-handed patient affecting patient's speech and the right side of the body. 2. Coronary artery disease with prior history of coronary artery bypass. 3. Chronic obstructive pulmonary disease in an ex-smoker. 4. Multi-infarct dementia. 5. Diabetes mellitus, type 2, chronically on insulin. 6. Gastroesophageal reflux disease. 7. Hyperlipidemia. 8. Malignant hypertension on presentation. 9. Primary osteoarthritis. 10.Chronic kidney disease, stage III, probably from nephrosclerosis. 11.Chronic low back pain with sciatica. 12.Chronic urinary stress incontinence. 13.Acute dysarthria from stroke. PLAN: Neurology was consulted. The patient was put on Plavix. Dose of Lipitor will be increased. Consultations to PT/OT and Speech have been done. Currently no family is present at the bedside. Care was discussed with the patient. MMODL / ORLINN: [id number] /
[2018-07-11] MEDS: DOCUSATE 100 MG CAP PO SCH ×2 (01:27→20:19)
[2018-07-11] MEDS: METOPROLOL TARTRATE 25 MG TAB PO SCH ×3 (01:27→20:18)
[2018-07-11 03:58] LABS: Hemoglobin A1C 5.9 % (4.0-6.0)
[2018-07-11 05:49] LABS: Glucose,Whole Blood 184 mg/dL (75-99)
[2018-07-11 06:49] LABS: Cholesterol 134 mg/dL (<200); HDL Cholesterol 46 mg/dL (40-60); LDL Cholesterol,Calculated 58 mg/dL (0-99); Triglycerides 152 mg/dL (<150)
[2018-07-11] MEDS: ENOXAPARIN 40 MG/0.4 ML SYRINGE SQ SCH ×2 (06:56→09:15)
[2018-07-11] MEDS: clonazePAM 0.5 MG TAB PO SCH ×3 (06:57→20:18)
[2018-07-11] MEDS: ONDANSETRON 4 MG TAB PO SCH ×3 (06:58→16:59)
[2018-07-11] MEDS ORDERED: LOSARTAN 25 MG TAB PO SCH (08:00)
[2018-07-11] MEDS ORDERED: LISINOPRIL 10 MG TAB PO SCH (08:00)
[2018-07-11] MEDS ORDERED: DONEPEZIL 5 MG TAB PO SCH (08:00)
[2018-07-11] MEDS ORDERED: ASPIRIN 81 MG PO SCH (08:00)
[2018-07-11] MEDS ORDERED: ONDANSETRON 4 MG TAB PO SCH (08:00)
[2018-07-11] MEDS: CLOPIDOGREL 75 MG TAB PO SCH (09:13)
[2018-07-11] MEDS: FAMOTIDINE 20 MG TAB PO SCH (09:14)
[2018-07-11] MEDS: FERROUS SULFATE 325 MG TAB PO SCH (09:14)
[2018-07-11] MEDS: ALLOPURINOL 100 MG TAB PO SCH (09:14)
[2018-07-11] MEDS: FUROSEMIDE 20 MG TAB PO SCH (09:14)
[2018-07-11] MEDS: PANTOPRAZOLE 40 MG TABLET PO SCH (09:15)
[2018-07-11] MEDS ORDERED: ASPIRIN 325 MG TAB PO SCH (12:00)
[2018-07-11] MEDS ORDERED: FLUoxetine HCL 20 MG CAP PO SCH (12:00)
--- NOTE | 2018-07-11 12:55 | US ---
EXAMINATION TYPE: US carotid duplex BILAT DATE OF EXAM: 07/11/2018 COMPARISON: 07/21/2015 CLINICAL HISTORY: CVA. Bilateral endarectomies done in 1970s as per patient EXAM MEASUREMENTS: RIGHT: Peak Systolic Velocity (PSV) cm/sec ----- Right CCA: 75.7 ----- Right ICA: 96.4 ----- Right ECA: 62.4 ICA/CCA ratio: 1.3 RIGHT: End Diastole cm/sec ----- Right CCA: 18.8 ----- Right ICA: 15.5 ----- Right ECA: 0 LEFT: Peak Systolic Velocity (PSV) cm/sec ----- Left CCA: 180.9 ----- Left ICA: 257.2 ----- Left ECA: 164.0 ICA/CCA ratio: 1.4 LEFT: End Diastole cm/sec ----- Left CCA: 24.8 ----- Left ICA: 29.0 ----- Left ECA: 0 VERTEBRALS (direction of flow): Right Vertebral: Antegrade Left Vertebral: Antegrade Rhythm: Normal Extensive , heterogenous plaque formation bilaterally. Elevated velocities in Left CCA, ICA and ECA IMPRESSION: 1. Extensive heterogeneous plaque bilaterally but no diagnostic evidence of significant hemodynamic stenosis by carotid Doppler ultrasound. Correlate with carotid CTA as clinically warranted. Criteria for Assigning % of Stenosis / Diameter reduction (Estimation based on the indirect measurements of the internal carotid artery velocities (ICA PSV). 1. Normal (no stenosis)=ICA PSV < 125 cm/s: ratio < 2.0: ICA EDV<40 cm/s. 2. Less than 50% stenosis=ICA PSV < 125 cm/s: ratio < 2.0: ICA EDV<40 cm/s. 3. 50 to 69% stenosis=ICA PSV of 125 to 230 cm/s: ration 2.0 ? 4.0: ICA EDV 40-100 cm/s. 4. Greater than 70% stenosis to near occlusion= ICA PSV > 230 cm/s: ratio > 4.0: ICA EDV > 100 cm/s. 5. Near occlusion= ICA PSV velocities may be low or undetectable: variable ratio and ICA EDV. 6. Total occlusion=unable to detect flow.
[2018-07-11] MEDS ORDERED: LOSARTAN 25 MG TAB PO STA (13:32)
[2018-07-11 13:33] LABS: Glucose,Whole Blood 168 mg/dL (75-99)
[2018-07-11] MEDS: CHLORTHALIDONE 25 MG TAB PO SCH (14:33)
--- NOTE | 2018-07-11 15:23 | P.PN ---
Subjective Progress Note Date: 07/11/18 Principal diagnosis: Right-sided weakness This pleasant 73-year-old female continuing to be evaluated by the neurology service. She was brought to [facility] emergency room after having symptoms of right-sided weakness. Her family also states they noticed some left-sided facial drooping. She has a history of previous strokes with minimal residual deficits. CT showed no acute abnormalities. It did show old cerebellar stroke, right occipital stroke, and a right frontoparietal stroke along with small vessel ischemic changes. Her MRI of the brain showed an abnormally increased signal a large area of the left cerebellar hemisphere that was not thought to be acute. It also showed areas consistent with her old strokes. Radiology indicates that there are no acute intracranial abnormalities. However, her presentation is that of an acute stroke in the left middle cerebral artery distribution. Her carotid Doppler is consistent with her history of bilateral carotid endarterectomies. No hemodynamically significant stenosis was found but there is extensive plaquing. She is undergoing physical occupational therapy is making some progress. She has no trouble swallowing and minimal problems with some mild dysarthria. At the time of my exam she is resting comfortably in bed in no acute distress. Objective - Vital Signs Vital signs: Vital Signs Temp 97.7 F 07/11/18 13:08 Pulse 65 07/11/18 13:08 Resp 20 07/11/18 13:08 BP 204/70 07/11/18 13:08 Pulse Ox 99 07/11/18 13:08 Intake & Output 07/10/18 07/11/18 07/11/18 18:59 06:59 18:59 Intake Total 370 90 Balance 370 90 Weight 90.718 kg 93.5 kg Intake: IV 10 0.9 10 Oral 360 90 Other: Voiding Method Diaper Diaper Incontinent Incontinent # Voids 3 - Constitutional General appearance: Present: average body habitus, cooperative, no acute distress - EENT Eyes: Present: EOMI, PERRLA. Absent: abnormal pupil, ptosis ENT: Present: hearing grossly normal - Neck Neck: Present: normal ROM. Absent: rigidity - Respiratory Respiratory: negative: prolonged expiration, prolonged inspiration - Cardiovascular Rhythm: regular - Gastrointestinal General gastrointestinal: Absent: distended, tenderness - Neurologic Neurologic Comment(s): She is alert awake and oriented to person and place. She still has trouble recalling the year. Speech is normal. Strength is 2 out of 5 in right upper and lower extremities 5 minus out of 5 on the left upper and lower extremities. There is no significant sensory deficit. There is no facial asymmetry. Tremors or seizure-like activities are seen. - Labs CBC & Chem 7: 07/10/18 09:53 07/10/18 09:53 Labs: Abnormal Lab Results - Last 24 Hours (Table) 07/10/18 07/10/18 07/11/18 Range/Units 16:34 20:08 05:45 POC Glucose (mg/dL) 125 H 122 H 184 H (75-99) mg/dL Triglycerides (<150) mg/dL Homocysteine (4.00-14.00) umol/L 07/11/18 07/11/18 07/11/18 Range/Units 06:05 06:05 13:14 POC Glucose (mg/dL) 168 H (75-99) mg/dL Triglycerides 152 H (<150) mg/dL Homocysteine 14.21 H (4.00-14.00) umol/L Assessment and Plan (1) Right hemiparesis Current Visit: Yes Status: Acute Code(s): G81.91 - HEMIPLEGIA, UNSPECIFIED AFFECTING RIGHT DOMINANT SIDE SNOMED Code(s): 241908247 (2) Receptive aphasia Current Visit: Yes Status: Acute Code(s): R47.01 - APHASIA SNOMED Code(s) : 320973631 (3) History of stroke Current Visit: Yes Status: Acute Code(s): Z86.73 - PRSNL HX OF TIA (TIA), AND CEREB INFRC W/O RESID DEFICITS SNOMED Code(s): 141050826 (4) Carotid stenosis Current Visit: Yes Status: Chronic Code(s): I65.29 - OCCLUSION AND STENOSIS OF UNSPECIFIED CAROTID ARTERY SNOMED Code(s): 84951299 (5) History of endarterectomy Current Visit: Yes Status: Chronic Code(s): Z98.890 - OTHER SPECIFIED POSTPROCEDURAL STATES SNOMED Code(s): 661517314 (6) Cerebrovascular accident Current Visit: Yes Status: Suspected Code(s): I63.9 - CEREBRAL INFARCTION, UNSPECIFIED SNOMED Code(s): 082870949 (7) Hypertension, uncontrolled Current Visit: No Status: Chronic Code(s): I10 - ESSENTIAL (PRIMARY) HYPERTENSION SNOMED Code(s): 18527412 (8) Homocysteinemia Current Visit: Yes Status: Acute Code(s): E72.19 - OTHER DISORDERS OF SULFUR -BEARING AMINO-ACID METABOLISM SNOMED Code(s): 872246101 (9) Dementia Current Visit: Yes Status: Chronic Code(s): F03.90 - UNSPECIFIED DEMENTIA WITHOUT BEHAVIORAL DISTURBANCE SNOMED Code(s): 71149093 (10) Diabetes Current Visit: Yes Status: Chronic Code(s): E11.9 - TYPE 2 DIABETES MELLITUS WITHOUT COMPLICATIONS SNOMED Code(s): 69684745 Plan: Clinically this patient has suffered an acute ischemic event in the left middle cerebral artery distribution. She has a large old area of encephalomalacia of the left cerebral hemisphere which is chronic. She will continue to work with physical and occupational therapy. Continue work on blood pressure control. I' ll put a consult for her findings on carotid Doppler and history of carotid endarterectomy. I will start her on Folbic supplementation for her homocystinemia. She will continue Plavix and Lipitor at current doses. We will follow her up in outpatient setting to discuss possible treatment for her dementia. No further neurological testing is needed and we will follow her up in outpatient setting. Continue neurological checks and we may be contacted as needed for any change in her neurological status. I have performed a history and physical on the above patient. I have reviewed the above note, and agree.
[2018-07-11 16:44] LABS: Glucose,Whole Blood 187 mg/dL (75-99)
[2018-07-11] MEDS: CALCITRIOL 0.25 MCG CAP PO SCH (16:59)
--- NOTE | 2018-07-11 18:55 | EEG ---
ELECTROENCEPHALOGRAM REPORT DATE OF SERVICE: 07/11/2018 REASON FOR TESTING: Stroke. DESCRIPTION OF THE PROCEDURE: This EEG was performed using a 21-channel digital electroencephalograph, following international 10-20 system. DESCRIPTION OF THE RECORDING: From the beginning of the tracing, and with the patient's eyes closed, the background rhythm was mostly consisting of 7 Hz theta frequency in the posterior occipital lead. No obvious asymmetry is seen. Photic stimulation was performed with no driving response seen. No pathological waves were elicited. Hyperventilation was not performed. The patient does reach stage II of sleep during the tracing and occasional sleep spindles are seen. Later in the tracing, muscle artifacts are seen, more on the right compared to the left leads. No epileptiform discharges were seen. Her EKG lead showed a regular rate and rhythm. INTERPRETATION: This asleep and awake EEG is abnormal due to the presence of generalized slowing of the background rhythm, mostly in the theta range. This is consistent with mild encephalopathy. Occasional asymmetry is seen with more muscle artifacts noticed in the right leads compared to the left. No epileptiform discharges were seen. The absence of epileptiform discharges does not rule out the diagnosis of epilepsy; therefore clinical correlation is recommended. MMODL / IJN: [id number] /
[2018-07-11] MEDS: ATORVASTATIN 40 MG TAB PO SCH (20:19)
[2018-07-11] MEDS: ALBUTEROL NEBULIZED 2.5 MG/3 ML INHALATION SCH (20:33)
[2018-07-11 21:26] LABS: Glucose,Whole Blood 184 mg/dL (75-99)
[2018-07-11] MEDS: INSULIN DETEMIR 100 UNIT/ML 10 ML VIAL SQ SCH (22:25)
[2018-07-11] MEDS ORDERED: METOPROLOL TARTRATE 25 MG TAB PO STA (23:12)
--- NOTE | 2018-07-11 23:55 | PN ---
PROGRESS NOTE DATE OF SERVICE: 07/11/2018 PRESENTING COMPLAINT: Weakness on the right side. INTERVAL HISTORY: This is a patient who presented with acute stroke with significant weakness on the right side. There is some movement in the right arm and the right leg. MRI results are noted. It is felt a stroke in the previous areas of infarct. The patient did tolerate some diet. Daughter is present at the bedside. REVIEW OF SYSTEMS: Done for constitutional, cardiovascular, GI, pulmonary; relevant findings as above. CURRENT MEDICATIONS: Reviewed that include: 1. Plavix and. 2. Lipitor. EXAMINATION: Temperature 96.8, pulse 60, respirations 18, blood pressure 186/89, pulse ox 99% on room air. GENERAL APPEARANCE: Lying in bed, awake. EYES: Pupils equal. Conjunctivae normal. HEENT: External appearance of nose and ears normal. Oral cavity normal. NECK: JVD not raised. Mass not palpable. RESPIRATORY: Effort normal. LUNGS: Diminished breath sounds. CARDIOVASCULAR: First and second sounds normal. No edema. ABDOMEN: Soft, nontender. Liver and spleen not palpable. NEUROLOGICAL: Power on the right arm is 2/5, right leg is 3/5. Patient has to be repeated things. Short-term memory is not good. INVESTIGATIONS: LDL 58. EEG did not report any seizure activity. Carotid Doppler did not show any significant stenosis. ASSESSMENT: 1. Acute ischemic stroke in the left middle cerebral artery in a right-handed patient affecting the speech and the right side of the body, slow to respond. 2. Coronary artery disease, prior history of coronary artery bypass. 3. Chronic obstructive pulmonary disease in an ex-smoker. 4. Multi-infarct dementia causing mild cognitive impairment. 5. Diabetes mellitus type 2, chronically on insulin. 6. Gastroesophageal reflux disease. 7. Hyperlipidemia. 8. Malignant hypertension on presentation. 9. Primary osteoarthritis. 10.Chronic kidney stage 3 from nephrosclerosis. 11.Chronic low back pain from sciatica. 12.Chronic urinary stress incontinence. 13.Acute dysarthria from stroke with some improvement. PLAN: I had a very lengthy talk to the daughter at the bedside, did discuss that I am comfortable giving the Prozac with Plavix and a slightly more increased risk of bleeding with the same, but the patient has had stroke already on the Plavix. Also discussed different things about the rehab. The patient's blood pressure medication will be further adjusted. Increase her Lopressor to 50 mg twice a day. The patient will be going to inpatient rehab. GIULIA / ORLINN: [id number] /
[2018-07-12 06:55] LABS: Glucose,Whole Blood 165 mg/dL (75-99)
[2018-07-12] MEDS ORDERED: LOSARTAN 50 MG TAB PO SCH (08:00)
[2018-07-12] MEDS: FERROUS SULFATE 325 MG TAB PO SCH (08:48)
[2018-07-12] MEDS: METOPROLOL TARTRATE 50 MG TAB PO SCH ×2 (08:48→20:02)
[2018-07-12] MEDS: ALLOPURINOL 100 MG TAB PO SCH (08:48)
[2018-07-12] MEDS: ENOXAPARIN 40 MG/0.4 ML SYRINGE SQ SCH (08:48)
[2018-07-12] MEDS: CLOPIDOGREL 75 MG TAB PO SCH (08:49)
[2018-07-12] MEDS: FAMOTIDINE 20 MG TAB PO SCH (08:49)
[2018-07-12] MEDS: FUROSEMIDE 20 MG TAB PO SCH (08:49)
[2018-07-12] MEDS: PANTOPRAZOLE 40 MG TABLET PO SCH (08:49)
[2018-07-12] MEDS: clonazePAM 0.5 MG TAB PO SCH ×3 (08:53→19:58)
[2018-07-12] MEDS: ONDANSETRON 4 MG TAB PO SCH ×3 (08:53→17:17)
[2018-07-12] MEDS: FLUoxetine HCL 20 MG CAP PO SCH (11:40)
[2018-07-12] MEDS: CYANOCOBALAMIN-FA-PYRIDOXINE 1 EACH TAB PO SCH (11:40)
[2018-07-12] MEDS ORDERED: LOSARTAN 50 MG TAB PO STA (11:41)
[2018-07-12] MEDS: CHLORTHALIDONE 25 MG TAB PO SCH (11:41)
[2018-07-12] MEDS: ARTIFICIAL TEARS-HYPROMELLOSE DROPS 15 ML BTL BOTH EYES PRN (11:44)
[2018-07-12 12:01] LABS: Glucose,Whole Blood 138 mg/dL (75-99)
--- NOTE | 2018-07-12 14:37 | P.PN ---
Subjective Progress Note Date: 07/12/18 Principal diagnosis: Right-sided weakness This pleasant 73-year-old female continuing to be evaluated by the neurology service. She was brought to [facility] emergency room after having symptoms of right-sided weakness. Her family also states they noticed some left-sided facial drooping. She has a history of previous strokes with minimal residual deficits. CT showed no acute abnormalities. It did show old cerebellar stroke, right occipital stroke, and a right frontoparietal stroke along with small vessel ischemic changes. Her MRI of the brain showed an abnormally increased signal a large area of the left cerebellar hemisphere that was not thought to be acute. It also showed areas consistent with her old strokes. Radiology indicates that there are no acute intracranial abnormalities. However, her presentation is that of an acute stroke in the left middle cerebral artery distribution. Her carotid Doppler is consistent with her history of bilateral carotid endarterectomies. No hemodynamically significant stenosis was found but there is extensive plaquing. She is undergoing physical occupational therapy is making some progress. She has no trouble swallowing and minimal problems with some mild dysarthria. At the time of my exam she is resting comfortably in bed in no acute distress. 07/12/2018 update no new neurological symptoms have arisen since our last exam. Her EEG did show some mild encephalopathy. At the time of my exam she is sleeping and resting comfortably in bed. She is easily awoken. No new lateralizing symptoms were found. She still has weakness on the right. Objective - Vital Signs Vital signs: Vital Signs Temp 96.9 F L 07/12/18 11:25 Pulse 63 07/12/18 11:25 Resp 16 07/12/18 11:25 BP 170/70 07/12/18 14:11 Pulse Ox 94 L 07/12/18 11:25 Intake & Output 07/11/18 07/12/18 07/12/18 18:59 06:59 18:59 Intake Total 450 118 0 Output Total 300 Balance 150 118 0 Weight 93 kg Intake: Oral 450 118 0 Output: Urine 300 Other: Voiding Method Diaper Diaper Bedpan Incontinent Incontinent Diaper Incontinent # Voids 1 1 3 - Constitutional General appearance: Present: cooperative, no acute distress - EENT Eyes: Present: EOMI, PERRLA. Absent: abnormal pupil ENT: Present: hearing grossly normal - Neck Neck: Present: normal ROM. Absent: rigidity - Respiratory Respiratory: negative: prolonged expiration, prolonged inspiration - Cardiovascular Rhythm: regular - Gastrointestinal General gastrointestinal: Absent: distended, tenderness - Neurologic Neurologic Comment(s): The patient is alert awake and oriented to person and place and partially to time. Speech is normal. Strength remains 2+ out of 5 in the right upper and lower extremities 5 minus out of 5 on the left. There is no significant sensory deficit. There is no facial asymmetry. No tremors or seizure-like activities are seen. - Labs CBC & Chem 7: 07/10/18 09:53 07/10/18 09:53 Labs: Abnormal Lab Results - Last 24 Hours (Table) 07/11/18 07/11/18 07/12/18 Range/Units 16:40 21:21 06:43 POC Glucose (mg/dL) 187 H 184 H 165 H (75-99) mg/dL 07/12/18 Range/Units 11:52 POC Glucose (mg/dL) 138 H (75-99) mg/dL Assessment and Plan (1) Right hemiparesis Current Visit: Yes Status: Acute Code(s): G81.91 - HEMIPLEGIA, UNSPECIFIED AFFECTING RIGHT DOMINANT SIDE SNOMED Code(s): 175713365 (2) Receptive aphasia Current Visit: Yes Status: Acute Code(s): R47.01 - APHASIA SNOMED Code(s) : 767133107 (3) History of stroke Current Visit: Yes Status: Acute Code(s): Z86.73 - PRSNL HX OF TIA (TIA), AND CEREB INFRC W/O RESID DEFICITS SNOMED Code(s): 910449524 (4) Carotid stenosis Current Visit: Yes Status: Chronic Code(s): I65.29 - OCCLUSION AND STENOSIS OF UNSPECIFIED CAROTID ARTERY SNOMED Code(s): 30035038 (5) History of endarterectomy Current Visit: Yes Status: Chronic Code(s): Z98.890 - OTHER SPECIFIED POSTPROCEDURAL STATES SNOMED Code(s): 247472287 (6) Cerebrovascular accident Current Visit: Yes Status: Suspected Code(s): I63.9 - CEREBRAL INFARCTION, UNSPECIFIED SNOMED Code(s): 389592785 (7) Homocysteinemia Current Visit: Yes Status: Acute Code(s): E72.19 - OTHER DISORDERS OF SULFUR -BEARING AMINO-ACID METABOLISM SNOMED Code(s): 319705930 (8) Dementia Current Visit: Yes Status: Chronic Code(s): F03.90 - UNSPECIFIED DEMENTIA WITHOUT BEHAVIORAL DISTURBANCE SNOMED Code(s): 83678774 (9) Diabetes Current Visit: Yes Status: Chronic Code(s): E11.9 - TYPE 2 DIABETES MELLITUS WITHOUT COMPLICATIONS SNOMED Code(s): 78825899 (10) Encephalopathy acute Current Visit: Yes Status: Acute Code(s): G93.40 - ENCEPHALOPATHY, UNSPECIFIED SNOMED Code(s): 06197756 Plan: Clinically this patient has suffered an acute ischemic event in the left middle cerebral artery distribution. She has a large old area of encephalomalacia of the left cerebral hemisphere which is chronic. Her EEG did also suffered mild encephalopathy which is likely metabolic given her renal status and blood pressure issues. She will continue to work with physical and occupational therapy. Continue work on blood pressure control. Cardiovascular consult for her findings on carotid Doppler and history of carotid endarterectomy. She should continue Folbic supplementation for her homocystinemia. She will continue Plavix and Lipitor at current doses. We will follow her up in outpatient setting to discuss possible treatment for her dementia. No further neurological testing is needed and we will follow her up in outpatient setting. Continue neurological checks and we may be contacted as needed for any change in her neurological status. I have performed a history and physical on the above patient. I have reviewed the above note, and agree.
[2018-07-12 17:11] LABS: Glucose,Whole Blood 132 mg/dL (75-99)
--- NOTE | 2018-07-12 18:53 | CONS ---
CONSULTATION This is a 73-year-old pleasant female. She came to the emergency room with history of left facial weakness and right arm and leg paralysis. She woke up with this symptom. No history of seizure. No history of amaurosis fugax. The patient had a complete stroke workup. MEDICAL HISTORY: History of coronary artery disease, history of COPD, dementia, diabetes mellitus, hyperlipidemia, hypertension. SURGICAL HISTORY: Patient had a back surgery done in the past, coronary artery bypass done in the past, bilateral carotid endarterectomy done. PHYSICAL EXAMINATION: Patient was seen in her room. The patient is still very weak and lethargic. NECK: Supple. CHEST: Clear to auscultation. First and second sounds are normal. ABDOMEN: Soft. Femoral pulses are palpable. CENTRAL NERVOUS SYSTEM: Patient's facial droop has resolved. The patient also has a flaccid paralysis of the right arm and leg. Carotid ultrasound shows extensive plaque formation bilaterally with moderate stenosis, bilateral. CT scan of the brain showed old cerebral right frontal and parietal right occipital infarct. No acute intracranial process noted. Patient had an MRI of the brain which showed moderate size old 4 cm infarct involving the right posterior frontal lobe and also ischemic changes in the left cerebellar hemisphere. PLAN: The patient has a symptomatic fixed stroke on the right side. At this point, there is no role of surgical intervention. Patient should go for rehab when she recovers. The patient will need an arch study if she recovers completely from the stroke. Discussed with the daughter and follow with you. GIULIA / IJN: [id number] /
[2018-07-12] MEDS: ACETAMINOPHEN TAB 500 MG TAB PO PRN (19:58)
[2018-07-12] MEDS: DOCUSATE 100 MG CAP PO SCH (19:59)
[2018-07-12] MEDS: ATORVASTATIN 40 MG TAB PO SCH (19:59)
[2018-07-12] MEDS: ALBUTEROL NEBULIZED 2.5 MG/3 ML INHALATION SCH (20:14)
[2018-07-12] MEDS ORDERED: DONEPEZIL 5 MG TAB PO SCH (21:00)
[2018-07-12 21:02] LABS: Glucose,Whole Blood 131 mg/dL (75-99)
[2018-07-12] MEDS: INSULIN DETEMIR 100 UNIT/ML 10 ML VIAL SQ SCH (21:02)
--- NOTE | 2018-07-13 00:15 | P.PN ---
Progress Note - Text Progress Note Date: 07/12/18 Presenting complaint: Right-sided weakness Interval history: Patient presented acute stroke affecting the right side. There has been some improvement with some movement of the right side. Blood pressure was running high hence medication adjusted. Some adjustment was made this morning. Patient tolerating her diet. Preauthorization could not be done as patient could not be transferred to the [facility]. Patient's daughter the bedside. No change in vision. Some improvement in the right-sided weakness. Blood pressure was still running high this morning. Review of systems: Was done for constitutional, cardiovascular, GI, pulmonary neurological. relevant finding as above Current medications reviewed that included: Lipitor 40 mg, chlorthalidone 25 mg, Plavix and a 5 mg, Cozaar was increased to 200 mg daily, Lopressor 50 mg twice a day, Levemir On examination: VITAL SIGNS: 97.4, 69, 20, 190/72, 92% room air this morning GENERAL APPEARANCE: Laying in bed tired appearing. HEENT: Normal external appearance of nose and ear. Oral cavity normal EYES: Pupils equal. Conjunctiva normal. NECK: JVD not raised. Mass not palpable. RESPIRATORY: Respiratory effort normal. Lungs decreased breath sounds. CARDIOVASCULAR: First and second sounds normal. No edema. ABDOMEN: Soft. Liver and spleen not palpable. No tenderness. No mass palpable. PSYCHIATRY: Also is questioning but forgets things NEUROLOGICAL: Power on the right arm is 2/5, right leg is 3/5, changing short- term memory as also noted by the daughter. Speech still a bit slow Assessment: -Acute ischemic stroke in the left middle cerebral artery in a right-handed patient affecting the speech and the right of the body slow to respond -Coronary artery disease prior history of bypass -COPD in an ex-smoker -Multi-infarct dementia causing mild cognitive impairment -Diabetes mellitus type 2 chronically on insulin -GERD Hyperlipidemia Malignant hypertension on presentation -Primary osteoarthritis -Chronic kidney disease stage III from nephrosclerosis -Chronic low back pain from Scitica -Chronic urinary stress incontinence -Acute dysarthria from stroke with some improvement. Plan: Dose of Lopressor was increased last night. Dose of Cozaar was increased 100 mg this morning. Had a lengthy conversation with the daughter. Medical questions were answered. Also spoke to social work and pillowcase turner. Looking into preauthorization. She'll need to go to [facility]. The dosing from [facility] saw the patient. We'll follow up as an outpatient.
[2018-07-13 07:04] LABS: Glucose,Whole Blood 137 mg/dL (75-99)
[2018-07-13] MEDS: clonazePAM 0.5 MG TAB PO SCH ×3 (09:55→19:47)
[2018-07-13] MEDS: METOPROLOL TARTRATE 50 MG TAB PO SCH (09:56)
[2018-07-13] MEDS: CHLORTHALIDONE 25 MG TAB PO SCH (09:56)
[2018-07-13] MEDS: FLUoxetine HCL 20 MG CAP PO SCH (09:56)
[2018-07-13] MEDS: FERROUS SULFATE 325 MG TAB PO SCH (09:56)
[2018-07-13] MEDS: PANTOPRAZOLE 40 MG TABLET PO SCH (09:56)
[2018-07-13] MEDS: CLOPIDOGREL 75 MG TAB PO SCH (09:56)
[2018-07-13] MEDS: FUROSEMIDE 20 MG TAB PO SCH (09:56)
[2018-07-13] MEDS: LOSARTAN 50 MG TAB PO SCH (09:56)
[2018-07-13] MEDS: ALLOPURINOL 100 MG TAB PO SCH (09:57)
[2018-07-13] MEDS: ENOXAPARIN 40 MG/0.4 ML SYRINGE SQ SCH (09:57)
[2018-07-13] MEDS: FAMOTIDINE 20 MG TAB PO SCH (09:57)
[2018-07-13] MEDS: ONDANSETRON 4 MG TAB PO SCH ×3 (09:57→18:29)
[2018-07-13 12:03] LABS: Glucose,Whole Blood 183 mg/dL (75-99)
[2018-07-13] MEDS: CYANOCOBALAMIN-FA-PYRIDOXINE 1 EACH TAB PO SCH (15:07)
--- NOTE | 2018-07-13 17:50 | P.PN ---
Progress Note - Text Progress Note Date: 07/13/18 Presenting complaint: Right-sided weakness Interval history: Patient presented acute stroke affecting the right side. Initially blood pressure was running high. Blood pressure medication adjusted. Today-some improvement in the right-sided weakness. Speech is slow. Patient been been more anxious per the daughter. Patient remains to be forgetful about things. Patient's friend is also present. Review of systems: Was done for constitutional, cardiovascular, GI, pulmonary neurological. relevant finding as above Current medications reviewed that included: Lipitor 40 mg, chlorthalidone 25 mg, Plavix and a 5 mg, Cozaar was increased 100 mg daily, Lopressor 50 mg twice a day, Levemir On examination: VITAL SIGNS: 97, 61, 18, 201/82, and 96% GENERAL APPEARANCE: Laying in bed tired appearing. HEENT: Normal external appearance of nose and ear. Oral cavity normal EYES: Pupils equal. Conjunctiva normal. NECK: JVD not raised. Mass not palpable. RESPIRATORY: Respiratory effort normal. Lungs decreased breath sounds. CARDIOVASCULAR: First and second sounds normal. No edema. ABDOMEN: Soft. Liver and spleen not palpable. No tenderness. No mass palpable. PSYCHIATRY: Arthritic questions NEUROLOGICAL: Power on the right arm is 2/5, right leg is 3/5, changing short- term memory as also noted by the daughter. Speech still a bit slow Assessment: -Acute ischemic stroke in the left middle cerebral artery in a right-handed patient affecting the speech and the right of the body slow to respond -Coronary artery disease prior history of bypass -COPD in an ex-smoker -Multi-infarct dementia causing mild cognitive impairment -Diabetes mellitus type 2 chronically on insulin -GERD Hyperlipidemia Malignant hypertension on presentation, still blood pressures aren't controlled with the contribution probably from anxiety -Primary osteoarthritis -Chronic kidney disease stage III from nephrosclerosis -Chronic low back pain from Scitica -Chronic urinary stress incontinence -Acute dysarthria from stroke with some improvement. -Nausea this could well be a side effect of patient's being on Aricept which is about 6-19% per [employer]. We'll discontinue the same and see how the patient does the same. -Anxiety uncontrolled Plan: Care was discussed in length with the patient ordered. Will stop the Prozac and start the patient on Paxil 10 mg a day. Usually Klonopin at a higher dose may not be effective and may have more side effects. Definitely patient's anxiety is contributing pressure. We'll start the patient on prazosin. We'll also DC the Aricept to help cut back on the blood pressure and also side effect of nausea. We'll also DC Lopressor and switch the patient to clonidine
[2018-07-13 17:54] LABS: Glucose,Whole Blood 134 mg/dL (75-99)
[2018-07-13] MEDS: CALCITRIOL 0.25 MCG CAP PO SCH (18:29)
[2018-07-13] MEDS: ALBUTEROL NEBULIZED 2.5 MG/3 ML INHALATION SCH (19:23)
[2018-07-13] MEDS: INSULIN DETEMIR 100 UNIT/ML 10 ML VIAL SQ SCH (19:47)
[2018-07-13] MEDS: cloNIDine HCL 0.1 MG TAB PO SCH (19:47)
[2018-07-13] MEDS: ATORVASTATIN 40 MG TAB PO SCH (19:47)
[2018-07-13] MEDS: PRAZOSIN 1 MG CAP PO SCH (19:48)
[2018-07-13 20:06] LABS: Glucose,Whole Blood 175 mg/dL (75-99)
[2018-07-14] MEDS: PRAZOSIN 1 MG CAP PO SCH ×4 (01:10→16:08)
[2018-07-14] MEDS: cloNIDine HCL 0.1 MG TAB PO SCH ×4 (01:11→22:02)
[2018-07-14 07:49] LABS: Glucose,Whole Blood 144 mg/dL (75-99)
[2018-07-14] MEDS: LOSARTAN 50 MG TAB PO SCH (10:07)
[2018-07-14] MEDS: PANTOPRAZOLE 40 MG TABLET PO SCH (10:07)
[2018-07-14] MEDS: ALLOPURINOL 100 MG TAB PO SCH (10:07)
[2018-07-14] MEDS: ENOXAPARIN 40 MG/0.4 ML SYRINGE SQ SCH (10:07)
[2018-07-14] MEDS: clonazePAM 0.5 MG TAB PO SCH ×3 (10:07→20:31)
[2018-07-14] MEDS: CHLORTHALIDONE 25 MG TAB PO SCH (10:07)
[2018-07-14] MEDS: FUROSEMIDE 20 MG TAB PO SCH (10:07)
[2018-07-14] MEDS: CLOPIDOGREL 75 MG TAB PO SCH (10:07)
[2018-07-14] MEDS: ONDANSETRON 4 MG TAB PO SCH ×3 (10:07→16:10)
[2018-07-14] MEDS: PARoxetine 10 MG TAB PO SCH (10:09)
[2018-07-14] MEDS: SENNOSIDES-DOCUSATE SODIUM 1 EACH TAB PO SCH (10:13)
[2018-07-14] MEDS: ACETAMINOPHEN TAB 500 MG TAB PO PRN (10:21)
[2018-07-14 12:04] LABS: Glucose,Whole Blood 183 mg/dL (75-99)
--- NOTE | 2018-07-14 13:42 | XR ---
EXAMINATION TYPE: XR chest 1V portable DATE OF EXAM: 07/14/2018 Comparison: 07/10/2018 Clinical History: 73-year-old female Shortness of Breath Findings: Median sternotomy wires are present with post-CABG clips in the mediastinum. Heart upper limits of no rmal in size. Diffuse interstitial prominence persists. Continued minimal patchy peripheral bibasilar densities. Impression: Relatively stable exam, possible mild pulmonary vascular congestion. Minimal patchy atelectasis/infil trate or effusions blunting the costophrenic angles.
[2018-07-14] MEDS: CYANOCOBALAMIN-FA-PYRIDOXINE 1 EACH TAB PO SCH (16:10)
[2018-07-14 17:37] LABS: Glucose,Whole Blood 156 mg/dL (75-99)
[2018-07-14] MEDS: ALBUTEROL NEBULIZED 2.5 MG/3 ML INHALATION SCH (19:17)
[2018-07-14 20:11] LABS: Glucose,Whole Blood 192 mg/dL (75-99)
[2018-07-14] MEDS: INSULIN DETEMIR 100 UNIT/ML 10 ML VIAL SQ SCH (20:31)
[2018-07-14] MEDS: ATORVASTATIN 40 MG TAB PO SCH (22:02)
--- NOTE | 2018-07-14 22:49 | P.PN ---
Progress Note - Text Progress Note Date: 07/14/18 Presenting complaint: Right-sided weakness Interval history: Patient presented acute stroke affecting the right side. Initially blood pressure was running high. Blood pressure medication adjusted. Today-patient's been more tired today. Blood pressure went down quite a bit today. Patient did eat some. Daughter the bedside.. Review of systems: Was done for constitutional, cardiovascular, GI, pulmonary neurological. relevant finding as above Current medications reviewed that included: Lipitor 40 mg, Klonopin 0.5 mg by mouth 3 times a day, Catapres 0.1 mg by mouth 3 times a day, Plavix, Lasix 20 mg, Levemir. On examination: VITAL SIGNS: 97.7, 56, 18, 106/55, 97% on 3 L GENERAL APPEARANCE: Laying in bed tired appearing. HEENT: Normal external appearance of nose and ear. Oral cavity normal EYES: Pupils equal. Conjunctiva normal. NECK: JVD not raised. Mass not palpable. RESPIRATORY: Respiratory effort normal. Lungs decreased breath sounds. CARDIOVASCULAR: First and second sounds normal. No edema. ABDOMEN: Soft. Liver and spleen not palpable. No tenderness. No mass palpable. PSYCHIATRY: Arthritic questions NEUROLOGICAL: Power on the right arm is 2/5, right leg is 3/5, changing short- term memory as also noted by the daughter. Speech still a bit slow Assessment: -Acute ischemic stroke in the left middle cerebral artery in a right-handed patient affecting the speech and the right of the body slow to respond -Coronary artery disease prior history of bypass -COPD in an ex-smoker -Multi-infarct dementia causing mild cognitive impairment -Diabetes mellitus type 2 chronically on insulin -GERD Hyperlipidemia Malignant hypertension on presentation, still blood pressures aren't controlled with the contribution probably from anxiety -Primary osteoarthritis -Chronic kidney disease stage III from nephrosclerosis -Chronic low back pain from Scitica -Chronic urinary stress incontinence -Acute dysarthria from stroke with some improvement. -Nausea this could well be a side effect of patient's being on Aricept which is about 6-19% per [employer]. We'll discontinue the same and see how the patient does the same. -Anxiety uncontrolled Plan: Patient is seems to be more relaxed on the Paxil. Prozac was stopped yesterday. We'll keep the current dose of Prevacid. Aricept was stopped yesterday. Lopressor also stopped yesterday. We will cut back to dose of Catapres .1 mg twice a day. Care was discussed with the daughter the bedside.
[2018-07-15 07:00] LABS: Glucose,Whole Blood 139 mg/dL (75-99)
[2018-07-15] MEDS: FUROSEMIDE 20 MG TAB PO SCH (08:59)
[2018-07-15] MEDS: clonazePAM 0.5 MG TAB PO SCH ×3 (08:59→20:56)
[2018-07-15] MEDS: ACETAMINOPHEN TAB 500 MG TAB PO PRN (08:59)
[2018-07-15] MEDS: ONDANSETRON 4 MG TAB PO SCH ×3 (09:00→16:48)
[2018-07-15] MEDS: SENNOSIDES-DOCUSATE SODIUM 1 EACH TAB PO SCH (09:00)
[2018-07-15] MEDS: cloNIDine HCL 0.1 MG TAB PO SCH ×2 (09:00→20:56)
[2018-07-15] MEDS: ALLOPURINOL 100 MG TAB PO SCH (09:00)
[2018-07-15] MEDS: PANTOPRAZOLE 40 MG TABLET PO SCH (09:00)
[2018-07-15] MEDS: CLOPIDOGREL 75 MG TAB PO SCH (09:00)
[2018-07-15] MEDS: ENOXAPARIN 40 MG/0.4 ML SYRINGE SQ SCH (09:00)
[2018-07-15] MEDS: PARoxetine 10 MG TAB PO SCH (10:03)
[2018-07-15 11:50] LABS: Glucose,Whole Blood 179 mg/dL (75-99)
[2018-07-15] MEDS: CYANOCOBALAMIN-FA-PYRIDOXINE 1 EACH TAB PO SCH (13:01)
[2018-07-15 16:44] LABS: Glucose,Whole Blood 205 mg/dL (75-99)
[2018-07-15] MEDS: CALCITRIOL 0.25 MCG CAP PO SCH (16:48)
[2018-07-15 19:03] LABS: Glucose,Whole Blood 192 mg/dL (75-99)
[2018-07-15] MEDS: ALBUTEROL NEBULIZED 2.5 MG/3 ML INHALATION SCH (19:51)
[2018-07-15] MEDS: ATORVASTATIN 40 MG TAB PO SCH (20:56)
[2018-07-15] MEDS: INSULIN DETEMIR 100 UNIT/ML 10 ML VIAL SQ SCH (20:57)
--- NOTE | 2018-07-16 05:47 | PN ---
PROGRESS NOTE DATE OF SERVICE: 07/15/2018 PRESENTING COMPLAINT: Stroke. INTERVAL HISTORY: This patient presented with stroke affecting the right side. Blood pressure is now better controlled. Tolerating a diet. Patient also is very anxious, responding well to Paxil. Patient's at the bedside today. REVIEW OF SYSTEMS: Done for constitutional, cardiovascular, GI, pulmonary, neuro; relevant findings as above. CURRENT MEDICATIONS: Current medications are reviewed that include Lipitor 40 mg, Catapres 0.1 mg twice a day, Plavix, Lasix. PHYSICAL EXAMINATION: On examination, temperature 98.2, pulse 62, respiration 16, blood pressure 136/60, pulse ox 95% on room air. GENERAL APPEARANCE: Lying in bed, awake. EYES: Pupils equal. Conjunctivae normal. HENT: External appearance of nose and ears normal. Oral cavity normal. NECK: JVD not raised. Mass not palpable. RESPIRATORY: Effort normal. LUNGS: Decreased breath sounds. CARDIOVASCULAR: First and second sounds normal. No edema. ABDOMEN: Soft, nontender. Liver and spleen not palpable. NEUROLOGICAL: Power of the right arm is 2/5, right leg is 3/5. Speech remains a bit slow. Accu-Cheks are noted. ASSESSMENT: 1. Acute ischemic stroke in the left middle cerebral artery in a right-handed patient affecting the speech and right side of the body. 2. Coronary artery disease, prior history of coronary artery bypass. 3. Chronic obstructive pulmonary disease in an ex-smoker. 4. Multi-infarct dementia causing some cognitive impairment. 5. Diabetes mellitus type 2, chronically on insulin. 6. Gastroesophageal reflux disease. 7. Hyperlipidemia. 8. Malignant hypertension on presentation, now well controlled. 9. Primary osteoarthritis. 10.Chronic kidney disease stage 3 from nephrosclerosis. 11.Chronic low back pain from sciatica. 12.Chronic urinary stress incontinence. 13.Acute dysarthria from stroke with some improvement. 14.Nausea could be side effect of Aricept, doing better. 15.Anxiety uncontrolled now doing well with Paxil. Continue current medication and treatment plan and follow. MMODL / IJN: [id number] /
[2018-07-16 06:55] LABS: Glucose,Whole Blood 149 mg/dL (75-99)
[2018-07-16] MEDS: SENNOSIDES-DOCUSATE SODIUM 1 EACH TAB PO SCH (08:45)
[2018-07-16] MEDS: CLOPIDOGREL 75 MG TAB PO SCH (08:45)
[2018-07-16] MEDS: ONDANSETRON 4 MG TAB PO SCH ×3 (08:45→17:02)
[2018-07-16] MEDS: PARoxetine 10 MG TAB PO SCH (08:45)
[2018-07-16] MEDS: ALLOPURINOL 100 MG TAB PO SCH (08:45)
[2018-07-16] MEDS: FUROSEMIDE 20 MG TAB PO SCH (08:45)
[2018-07-16] MEDS: clonazePAM 0.5 MG TAB PO SCH ×3 (08:45→20:03)
[2018-07-16] MEDS: cloNIDine HCL 0.1 MG TAB PO SCH ×2 (08:45→20:02)
[2018-07-16] MEDS: PANTOPRAZOLE 40 MG TABLET PO SCH (08:45)
[2018-07-16] MEDS: ENOXAPARIN 40 MG/0.4 ML SYRINGE SQ SCH (08:46)
[2018-07-16] MEDS: CYANOCOBALAMIN-FA-PYRIDOXINE 1 EACH TAB PO SCH (11:19)
[2018-07-16 12:24] LABS: Glucose,Whole Blood 183 mg/dL (75-99)
[2018-07-16] MEDS: ACETAMINOPHEN TAB 500 MG TAB PO PRN ×2 (14:13→20:02)
[2018-07-16] MEDS: ARTIFICIAL TEARS-HYPROMELLOSE DROPS 15 ML BTL BOTH EYES PRN (14:17)
[2018-07-16 17:12] LABS: Glucose,Whole Blood 126 mg/dL (75-99)
[2018-07-16 19:59] LABS: Glucose,Whole Blood 131 mg/dL (75-99)
[2018-07-16] MEDS: ALBUTEROL NEBULIZED 2.5 MG/3 ML INHALATION SCH (20:01)
[2018-07-16] MEDS: ATORVASTATIN 40 MG TAB PO SCH (20:03)
[2018-07-16] MEDS: INSULIN DETEMIR 100 UNIT/ML 10 ML VIAL SQ SCH (20:03)
--- NOTE | 2018-07-17 05:30 | PN ---
PROGRESS NOTE DATE OF SERVICE: 07/16/18. PRESENT COMPLAINT: Stroke. INTERVAL HISTORY: The patient admitted with stroke affecting the right side of the body. Blood pressure is controlled. Tolerating a diet. Anxiety is well controlled. The patient is awaiting to go to rehab. REVIEW OF SYSTEMS: Done for constitutional, cardiovascular, GI, pulmonary; relevant findings as above. CURRENT MEDICATIONS: Reviewed. PHYSICAL EXAMINATION: Temperature 97.9, pulse 51, respirations 16, blood pressure 150/72, pulse ox 92 percent on room air. GENERAL APPEARANCE: Lying in bed, awake. EYES: Pupils equal. Conjunctivae normal. HEENT: External appearance of nose and ears normal. Oral cavity normal. NECK: JVD not raised. Mass not palpable. RESPIRATORY: Effort normal. Lungs, decreased breath sounds. CARDIOVASCULAR: 1st and 2nd sounds, no edema. ABDOMEN: Soft, nontender. Liver and spleen not palpable. NEUROLOGICAL: Power in the right arm is 2/5, right leg is 3/5. Speech remains a bit slow. INVESTIGATIONS: Accu-Cheks noted. ASSESSMENT: 1. Acute ischemic stroke in the left middle cerebral artery in a right-handed patient affecting the speech, right side of the body. 2. Coronary artery disease prior history of coronary artery bypass. 3. Chronic obstructive pulmonary disease in an ex-smoker. 4. Multi-infarct dementia causing some cognitive impairment. 5. Diabetes mellitus type 2, chronically on insulin. 6. Gastroesophageal reflux disease. 7. Hyperlipidemia. 8. Malignant hypertension on presentation, now better controlled. 9. Primary osteoarthritis. 10.Chronic kidney disease stage III from nephrosclerosis. 11.Chronic low back pain from sciatica. 12.Chronic urine incontinence. 13.Acute dysarthria from stroke with some improvement. 14.Nausea, could be a side effect of Aricept, now doing better with having been discontinued. 15.Anxiety uncontrolled, responding well to Paxil. PLAN: Continue current medication and treatment plan. Spoke to manager social responsibility, awaiting preauthorization for disposition to [facility]. MMODL / IJN: [id number] /
[2018-07-17 06:58] LABS: Glucose,Whole Blood 148 mg/dL (75-99)
[2018-07-17 07:45] VITALS: PULSE 62; RESP 16
[2018-07-17] MEDS: ONDANSETRON 4 MG TAB PO SCH ×3 (07:57→17:49)
[2018-07-17] MEDS: cloNIDine HCL 0.1 MG TAB PO SCH (07:57)
[2018-07-17] MEDS: clonazePAM 0.5 MG TAB PO SCH ×2 (07:57→11:23)
[2018-07-17] MEDS: PANTOPRAZOLE 40 MG TABLET PO SCH (07:57)
[2018-07-17] MEDS: ALLOPURINOL 100 MG TAB PO SCH (07:57)
[2018-07-17] MEDS: CLOPIDOGREL 75 MG TAB PO SCH (07:57)
[2018-07-17] MEDS: FUROSEMIDE 20 MG TAB PO SCH (07:57)
[2018-07-17] MEDS: SENNOSIDES-DOCUSATE SODIUM 1 EACH TAB PO SCH (07:58)
[2018-07-17] MEDS: ENOXAPARIN 40 MG/0.4 ML SYRINGE SQ SCH (07:58)
[2018-07-17] MEDS: PARoxetine 10 MG TAB PO SCH (07:58)
[2018-07-17] MEDS: CYANOCOBALAMIN-FA-PYRIDOXINE 1 EACH TAB PO SCH (11:22)
[2018-07-17] MEDS: ACETAMINOPHEN TAB 500 MG TAB PO PRN ×2 (11:23→17:50)
[2018-07-17 11:25] LABS: Glucose,Whole Blood 210 mg/dL (75-99)
[2018-07-17 13:44] VITALS: BMI 29.5
[2018-07-17 14:28] VITALS: BP 147/61; TEMP 97.8
--- NOTE | 2018-07-17 15:29 | DS ---
DISCHARGE SUMMARY DATE OF ADMISSION: 07/10/18 DATE OF DISCHARGE: 07/17/18 FINAL DIAGNOSES: 1. Acute ischemic stroke in the left middle cerebral artery in a right-handed patient affecting the speech and right side of body, present on admission. 2. Coronary artery disease with prior history of coronary artery bypass. 3. Chronic obstructive pulmonary disease in an ex-smoker. 4. Multi-infarct dementia causing some cognitive impairment, moderate. 5. Diabetes mellitus type 2, chronically on insulin. 6. Gastroesophageal reflux disease. 7. Hyperlipidemia. 8. Accelerated hypertension, on presentation now better controlled. 9. Primary osteoarthritis. 10.Chronic kidney disease stage III from nephrosclerosis. 11.Chronic low back pain from sciatica. 12.Chronic urine incontinence. 13.Acute dysarthria from stroke with some improvement. 14.Nausea, side effect of Aricept, improved after discontinuation. 15.Generalized anxiety, uncontrolled on presentation, improved with Paxil. HOSPITAL COURSE: This patient presented with stroke affecting primarily the right side of the body. Power is 2/5. Speech is slow from the same. The patient is doing better by the time of discharge. Current medications were adjusted. Aricept was discontinued due to side effect of nausea which is doing better. Also anxiety was uncontrolled. Did really well on Paxil. The patient's Prozac was discontinued. Blood pressure medications were adjusted. Today care was discussed at length with the daughter at the bedside. Questions were answered. Patient's EEG did not show any seizure activity. Carotid Doppler did not show any critical stenosis. MRI of the brain showed chronic changes. EXAMINATION: On examination, temp 97.8, pulse 62, respirations 16, blood pressure 147/61. Power on the right side is 4/5. Speech is a bit slow. DISCHARGE MEDICATIONS: 1. Vitamin D2 84429 units every 14 days. 2. Melatonin 3 mg q.h.s. p.r.n. 3. Omeprazole 40 mg p.o. daily. 4. Tylenol 1000 mg q.6h p.r.n. 5. Ventolin HFA 2 puffs q.h.s. 6. Artificial Tears 1 drop to both eyes daily p.r.n. 7. Allopurinol 100 mg a day. 8. Rocaltrol 0.25 mcg p.o. on Sunday, , and Sunday. 9. Lantus 30 units subcu q.h.s. 10.Zofran 4 mg p.o. t.i.d. 11.Kenalog 0.1% topical b.i.d. p.r.n. 12.Lasix 20 mg p.o. daily. 13.Ventolin HFA 1-2 puffs q.4 p.r.n. 14.Lipitor 40 mg q.h.s. 15.Plavix 75 mg p.o. daily. 16.Folbic 1 tablet p.o. daily at noon. 17.Lovenox 40 mg subcu daily. 18.Paxil 10 mg p.o. daily. 19.Senokot S1 tab p.o. daily. 20.Catapres 0.1 mg p.o. b.i.d. 21.Klonopin 0.5 mg p.o. t.i.d. 22.Discontinued aspirin, Lipitor 10 mg, Prozac, Lopressor, Aricept, Colace, Prinivil, Zantac. 23.Cozaar 25 mg a day is being resumed. DISPOSITION: [facility]. Follow with Dr. Carter at the [facility]. Follow Dr. Coelho in 2 weeks. Follow up with Dr. Cat in 3 weeks. Follow up with Dr. Calderon after DC from the [facility]. CONSULTATIONS: 1. Dr. Cat from Neurology. 2. Dr. Johnny oCelho from Vascular. Discussion and discharge planning more than 35 minutes. MMODL / IJN: [id number] /
--- NOTE | 2018-07-18 00:47 | DS ---
DISCHARGE SUMMARY ADDENDUM: DATE OF ADMISSION: 07/10/2018 DATE OF DISCHARGE: 07/17/2018 Discussion and discharge planning more than 35 minutes. MMODL / IJN: [id number] /
[2018-07-24] MEDS ORDERED: ERGOCALCIFEROL 50,000 UNIT CAP PO SCH (08:00)
== END 2018-07-17 18:41 | DRG 64 ==
LOC: EC 09:29 → 6SEL 11:49 → 3SUR 07-12 21:40
PROVIDERS: ADMIT Hospitalist; ATTEND Hospitalist
DX: I63.512 Cerebral infarction due to unspecified occlusion or stenosis of left middle cerebral artery (principal); G93.40 Encephalopathy, unspecified; G81.91 Hemiplegia, unspecified affecting right dominant side; D64.9 Anemia, unspecified; E11.22 Type 2 diabetes mellitus with diabetic chronic kidney disease; E78.5 Hyperlipidemia, unspecified; F01.50 Vascular dementia, unspecified severity, without behavioral disturbance, psychotic disturbance, mood disturbance, and anxiety; F41.1 Generalized anxiety disorder; G89.29 Other chronic pain; I12.9 Hypertensive chronic kidney disease with stage 1 through stage 4 chronic kidney disease, or unspecified chronic kidney disease; I25.10 Atherosclerotic heart disease of native coronary artery without angina pectoris; J44.9 Chronic obstructive pulmonary disease, unspecified; K21.9 Gastro-esophageal reflux disease without esophagitis; M19.91 Primary osteoarthritis, unspecified site; M54.40 Lumbago with sciatica, unspecified side; N18.3 Chronic kidney disease, stage 3 (moderate); N39.3 Stress incontinence (female) (male); R47.01 Aphasia; R29.707 NIHSS score 7; R47.1 Dysarthria and anarthria; R40.2242 Coma scale, best verbal response, confused conversation, at arrival to emergency department; R40.2132 Coma scale, eyes open, to sound, at arrival to emergency department; R40.2362 Coma scale, best motor response, obeys commands, at arrival to emergency department; Z79.4 Long term (current) use of insulin; Z79.82 Long term (current) use of aspirin; Z79.899 Other long term (current) drug therapy; Z82.49 Family history of ischemic heart disease and other diseases of the circulatory system; Z85.828 Personal history of other malignant neoplasm of skin; Z95.1 Presence of aortocoronary bypass graft; Z87.891 Personal history of nicotine dependence; Z90.710 Acquired absence of both cervix and uterus; Z88.8 Allergy status to other drugs, medicaments and biological substances; T44.1X5A Adverse effect of other parasympathomimetics [cholinergics], initial encounter; R11.0 Nausea
CPT/HCPCS: 36415; 70450; 70551; 71045; 71046; 80053; 80061; 82550; 82553; 83036; 83090; 84484; 85025; 85610; 85730; 93005; 93880; 94640; 94760; 95819; 96360; 96361; 96374; 96375; 99285

== ENCOUNTER 2018-08-13 10:26 | Inpatient (IN) | payer MEDICARE, OTHER ==
--- NOTE | 2018-08-13 10:41 | ED ---
General Adult HPI <Angel Loera - Last Filed: 08/13/18 12:26> - General Source: patient, RN notes reviewed Mode of arrival: EMS Limitations: no limitations <Venkata Schmid - Last Filed: 08/13/18 12:35> - General Chief complaint: Recheck/Abnormal Lab/Rx Stated complaint: ELEVATED BP Time Seen by Provider: 08/13/18 10:32 - History of Present Illness Initial comments: Patient is a 73-year-old female presented to the emergency room today by EMS, the chief complaint of a fall that occurred this morning. Patient did have a stroke in late June. She currently a rehab facility. Patient was trying to get herself out of bed to go to the bathroom. She is trying to get into a wheelchair when she fell. She does admit to pain to the right ankle. Also is that she did hit her head but states was no loss of consciousness. Patient denies any other complaints at this time. Patient blood pressure is elevated at triage. States she has not had her morning medications. Patient denies any recent fever, chills, shortness of breath, chest pain, back pain, abdominal pain , nausea or vomiting, dysuria or hematuria, constipation or diarrhea, headaches or visual changes, or any other complaints. (Venkata Schmid) - Related Data Home Medications Medication Instructions Recorded Confirmed Ergocalciferol [Vitamin D2 50,000 unit PO Q14D 12/04/14 08/13/18 (DRISDOL)] Melatonin 3 mg PO HS PRN 12/04/14 08/13/18 Omeprazole 40 mg PO DAILY 12/04/14 08/13/18 Acetaminophen Tab [Tylenol] 1,000 mg PO Q6HR PRN 07/20/15 08/13/18 Albuterol Inhaler [Ventolin Hfa 2 puff INHALATION RT-HS 07/20/15 08/13/18 Inhaler] Hypromellose [Artificial Tears] 1 drop BOTH EYES DAILY PRN 07/20/15 08/13/18 Allopurinol [Zyloprim] 100 mg PO DAILY 06/01/17 08/13/18 Calcitriol [Rocaltrol] 0.25 mcg PO MOTHSA 06/01/17 08/13/18 Insulin Glargine,Hum.rec.anlog 30 unit SQ HS 06/01/17 08/13/18 [Lantus Solostar] Ondansetron [Zofran] 4 mg PO Q6H PRN 06/01/17 08/13/18 Triamcinolone 0.1% Cream [Kenalog 1 applicatio TOPICAL BID PRN 06/01/17 08/13/18 0.1% Cream] Furosemide [Lasix] 20 mg PO DAILY 07/03/18 08/13/18 Albuterol Inhaler [Ventolin Hfa 1 - 2 puff INHALATION RT-Q4H PRN 07/10/18 Inhaler] Pujvzqileuijjj-XV-Musqvznfuz 1 tab PO DAILY 08/13/18 08/13/18 [Folbic] Insulin Aspart [NovoLOG See Protocol SQ ACHS 08/13/18 08/13/18 (formulary)] Sennosides-Docusate Sodium 1 tab PO DAILY 08/13/18 08/13/18 [Senokot-S] clonazePAM [KlonoPIN] 0.5 mg PO TID@05,13,08/13/18 08/13/18 Previous Rx's Medication Instructions Recorded Atorvastatin [Lipitor] 40 mg PO HS tab 07/16/18 Clopidogrel [Plavix] 75 mg PO DAILY tab 07/16/18 PARoxetine [Paxil] 10 mg PO DAILY tab 07/16/18 cloNIDine HCL [Catapres] 0.1 mg PO BID tab 07/16/18 Allergies Allergy/AdvReac Type Severity Reaction Status Date / Time benztropine mesylate Allergy Unknown Verified 08/13/18 10:28 [From Cogentin] donepezil [From Aricept] Allergy Unknown Verified 08/13/18 10:28 metoclopramide HCl Allergy Unknown Verified 08/13/18 10:28 [From Reglan] prochlorperazine edisylate Allergy Unknown Verified 08/13/18 10:28 [From Compazine] prochlorperazine maleate Allergy Unknown Verified 08/13/18 10:28 [From Compazine] Review of Systems ROS Other: All systems not noted in ROS Statement are negative. <Angel Loera - Last Filed: 08/13/18 12:26> ROS Other: All systems not noted in ROS Statement are negative. <Venkata Schmid - Last Filed: 08/13/18 12:35> ROS Statement: Those systems with pertinent positive or pertinent negative responses have been documented in the HPI. Past Medical History Past Medical History: Coronary Artery Disease (CAD), Cancer, COPD, CVA/TIA, Dementia, Diabetes Mellitus, GERD/Reflux, Hyperlipidemia, Hypertension, Osteoarthritis (OA), Renal Disease, Syncope Additional Past Medical History / Comment(s): 2008 CVA affected balance/ coordination/short term memory/ caused chronic nausea and impulsiveness/ pt was trached and had a peg tube, IDDM type II, CKD stage III, problems with potassium levels, low back pain with sciatica, gout in hands/feet, skin cancer with removal, urinary incontinence and occasional diarrhea. History of Any Multi-Drug Resistant Organisms: None Reported Past Surgical History: Back Surgery, Coronary Bypass/CABG, Heart Catheterization , Hysterectomy, Orthopedic Surgery Additional Past Surgical History / Comment(s): Bilateral carotid endarectmy, CVA and had posterior craniotomy/brain surgery to remove blood clot/trach, peg since removed, 2011 CABG 4 vessel, 2 back surgeries, bilateral carpal tunnel releases, bilateral cataract removals/lens implants, colonoscopy with benign polyp, skin cancer removal. Past Anesthesia/Blood Transfusion Reactions: No Reported Reaction Past Psychological History: No Psychological Hx Reported Smoking Status: Former smoker - Past Family History Mother Family Medical History: CVA/TIA Additional Family Medical History / Comment(s): Mother of a CVA at the age of 47yrs. Father Family Medical History: Myocardial Infarction ([place]) Additional Family Medical History / Comment(s): Father of a [place] around age 60yrs. <Venkata Schmid - Last Filed: 08/13/18 12:35> General Exam <Angel Loera - Last Filed: 08/13/18 12:26> Limitations: no limitations <Venkata Schmid - Last Filed: 08/13/18 12:35> - General Exam Comments Initial Comments: General: The patient is awake and alert, in no distress, and does not appear acutely ill. Eye: Pupils are equal, round and reactive to light. Extra-ocular movements are intact. No nystagmus. There is normal conjunctiva bilaterally. No signs of icterus. Ears, nose, mouth and throat: There are moist mucous membranes and no oral lesions. Neck: The neck is supple, there is no tenderness or JVD. Cardiovascular: There is a regular rate and rhythm. No murmur, rub or gallop is appreciated. Respiratory: Lungs are clear to auscultation, respirations are non-labored, breath sounds are equal. No wheezes, stridor, rales, or rhonchi. Musculoskeletal: Normal appearance of her foot, knee and hip no obvious deformity. Patient has no tenderness over the right hip, right knee. Mildly tender midshaft of the right tibia and tender over the lateral malleolus. No tenderness down to the right foot. Pedal pulse 2+. Sensation intact. Strength 5/5. Neurological: A&O x 3. CN II-XII intact, There are no obvious motor or sensory deficits. Coordination appears grossly intact. Speech is normal. Skin: Skin is warm and dry and no rashes or lesions are noted. Psychiatric: Cooperative, appropriate mood & affect, normal judgment. (Venkata Schmid) Course <Angel Loera - Last Filed: 08/13/18 12:26> <Venkata Schmid - Last Filed: 08/13/18 12:35> Vital Signs 08/13/18 08/13/18 08/13/18 10:30 10:49 12:15 Temperature 97.6 F Pulse Rate 92 Respiratory 18 Rate Blood Pressure 218/81 212/83 205/91 O2 Sat by Pulse 97 Oximetry - Reevaluation(s) Reevaluation #1: 08/13/18 12:16 Patient reevaluated by myself, Dr. Loera. Patient resting comfortably in bed. Patient and family updated on results and plan. Patient will need blood transfusion secondary to anemia. Patient is Hemoccult positive. Dr. Larios has been paged for admission. GI will need to be placed on consult. Orthopedics will be also placed on consult. Patient will be medical admission rather than trauma admission secondary to patient not needing admission for trauma reasons. Patient is cleared from traumatic admission. 08/13/18 12:22 Case was discussed with Dr. James who does agree that patient would normally be sent home for leg fracture and did not need to be admitted. Therefore patient would justify medical admission. They would be happy to consult. They do agree with long-leg splint. 08/13/18 12:26 Case was also discussed in detail with Dr. Larios, who will admit for Dr. Robbins. I did review and agree with PA findings. This includes all diagnostic interpretation and treatment plan. (Angel Loera) Medical Decision Making - Lab Data Result diagrams: 08/13/18 11:01 08/13/18 11:01 <Angel Loera - Last Filed: 08/13/18 12:26> - Lab Data Result diagrams: 08/13/18 11:01 08/13/18 11:01 <Venkata Schmid - Last Filed: 08/13/18 12:35> - Medical Decision Making Patient reexamined at this time shows no signs of distress she is resting comfortably. Her CT of the head is negative for any acute abnormality. Patient 's x-ray of the right ankle and tib-fib does show a fracture of the medial malleolus and proximal right fibula. Patient has been splinted in a long leg posterior OCL. Neurovascular rechecked and intact. Patient's labs reviewed does show hemoglobin 6.3. Patient's blood pressure elevated at triage was given daily dose of Catapres as she had not had her morning medications. (Venkata Schmid) - Lab Data Lab Results 08/13/18 08/13/18 08/13/18 Range/Units 11:01 11:01 11:01 WBC 12.0 H (3.8-10.6) k/uL RBC 2.48 L (3.80-5.40) m/uL Hgb 6.3 L* (11.4-16.0) gm/dL Hct 21.6 L (34.0-46.0) % MCV 87.3 D (80.0-100.0) fL MCH 25.6 (25.0-35.0) pg MCHC 29.3 L (31.0-37.0) g/dL RDW 16.7 H (11.5-15.5) % Plt Count 370 (150-450) k/uL Neutrophils % 69 % Lymphocytes % 10 % Monocytes % 15 % Eosinophils % 1 % Basophils % 0 % Neutrophils # 8.3 H (1.3-7.7) k/uL Lymphocytes # 1.2 (1.0-4.8) k/uL Monocytes # 1.8 H (0-1.0) k/uL Eosinophils # 0.1 (0-0.7) k/uL Basophils # 0.0 (0-0.2) k/uL Hypochromasia Marked Poikilocytosis Moderate Anisocytosis Slight PT 10.5 (9.0-12.0) sec INR 1.1 (<1.2) APTT 20.9 L (22.0-30.0) sec Sodium 133 L (137-145) mmol/L Potassium 3.4 L (3.5-5.1) mmol/L Chloride 92 L (98-107) mmol/L Carbon Dioxide 33 H (22-30) mmol/L Anion Gap 8 mmol/L BUN 26 H (7-17) mg/dL Creatinine 1.26 H (0.52-1.04) mg/dL Est GFR (CKD-EPI)AfAm 48 (>60 ml/min/1.73 sqM) Est GFR (CKD-EPI)NonAf 42 (>60 ml/min/1.73 sqM) Glucose 133 H (74-99) mg/dL Calcium 8.1 L (8.4-10.2) mg/dL Total Bilirubin 0.6 (0.2-1.3) mg/dL AST 27 (14-36) U/L ALT 22 (9-52) U/L Alkaline Phosphatase 95 (38-126) U/L Total Protein 6.1 L (6.3-8.2) g/dL Albumin 2.9 L (3.5-5.0) g/dL Urine Color Urine Appearance (Clear) Urine pH (5.0-8.0) Ur Specific Hartly (1.001-1.035) Urine Protein (Negative) Urine Glucose (UA) (Negative) Urine Ketones (Negative) Urine Blood (Negative) Urine Nitrite (Negative) Urine Bilirubin (Negative) Urine Urobilinogen (<2.0) mg/dL Ur Leukocyte Esterase (Negative) Urine RBC (0-5) /hpf Ur Squamous Epith Cells (0-4) /hpf Amorphous Sediment (None) /hpf Urine Bacteria (None) /hpf 08/13/18 Range/Units 11:01 WBC (3.8-10.6) k/uL RBC (3.80-5.40) m/uL Hgb (11.4-16.0) gm/dL Hct (34.0-46.0) % MCV (80.0-100.0) fL MCH (25.0-35.0) pg MCHC (31.0-37.0) g/dL RDW (11.5-15.5) % Plt Count (150-450) k/uL Neutrophils % % Lymphocytes % % Monocytes % % Eosinophils % % Basophils % % Neutrophils # (1.3-7.7) k/uL Lymphocytes # (1.0-4.8) k/uL Monocytes # (0-1.0) k/uL Eosinophils # (0-0.7) k/uL Basophils # (0-0.2) k/uL Hypochromasia Poikilocytosis Anisocytosis PT (9.0-12.0) sec INR (<1.2) APTT (22.0-30.0) sec Sodium (137-145) mmol/L Potassium (3.5-5.1) mmol/L Chloride (98-107) mmol/L Carbon Dioxide (22-30) mmol/L Anion Gap mmol/L BUN (7-17) mg/dL Creatinine (0.52-1.04) mg/dL Est GFR (CKD-EPI)AfAm (>60 ml/min/1.73 sqM) Est GFR (CKD-EPI)NonAf (>60 ml/min/1.73 sqM) Glucose (74-99) mg/dL Calcium (8.4-10.2) mg/dL Total Bilirubin (0.2-1.3) mg/dL AST (14-36) U/L ALT (9-52) U/L Alkaline Phosphatase (38-126) U/L Total Protein (6.3-8.2) g/dL Albumin (3.5-5.0) g/dL Urine Color Light Red Urine Appearance Turbid H (Clear) Urine pH 7.0 (5.0-8.0) Ur Specific Hartly 1.014 (1.001-1.035) Urine Protein 3+ H (Negative) Urine Glucose (UA) Negative (Negative) Urine Ketones Negative (Negative) Urine Blood Large H (Negative) Urine Nitrite Negative (Negative) Urine Bilirubin Negative (Negative) Urine Urobilinogen 2.0 (<2.0) mg/dL Ur Leukocyte Esterase Moderate H (Negative) Urine RBC 17 H (0-5) /hpf Ur Squamous Epith Cells 11 H (0-4) /hpf Amorphous Sediment Rare H (None) /hpf Urine Bacteria Few H (None) /hpf Disposition <Angel Loera - Last Filed: 08/13/18 12:26> Is patient prescribed a controlled substance at d/c from ED?: No Time of Disposition: 12:35 <Venkata Schmid - Last Filed: 08/13/18 12:35> Clinical Impression: GI bleed, Anemia, Fall, Maisonneuve fracture Disposition: ADMITTED IP TO THIS HOSP Condition: Stable Referrals: Jerel Robbins DO [Primary Care Provider] - 1-2 days
[2018-08-13] MEDS ORDERED: cloNIDine HCL 0.1 MG TAB PO STA (10:54)
[2018-08-13 11:30] LABS: Amorphous Sediment,Urine Rare /hpf; Appearance,Urine Turbid (Clear); Bacteria,Urine Few /hpf; Bilirubin,Urine Negative (Negative); Blood,Urine Large (Negative); Color,Urine Light Red; Glucose,Urine (UA) Negative (Negative); Ketones,Urine Negative (Negative); Leukocyte Esterase,Urine Moderate (Negative); Nitrite,Urine Negative (Negative); Protein,Urine 3+ (Negative); RBC,Urine 17 /hpf (0-5); Specific Gravity,Urine 1.014 (1.001-1.035); Squamous Epithelial Cell,Urine 11 /hpf (0-4)
[2018-08-13 11:35] LABS: Anisocytosis Slight; Basophils % (A) 0 %; Eosinophils # (A) 0.1 k/uL (0-0.7); Eosinophils % (A) 1 %; HCT 21.6 % (34.0-46.0); Hypochromasia Marked; Lymphocytes # (A) 1.2 k/uL (1.0-4.8); Lymphocytes % (A) 10 %; MCH 25.6 pg (25.0-35.0); MCHC 29.3 g/dL (31.0-37.0); Mean Platelet Volume 7.8; Monocytes # (A) 1.8 k/uL (0-1.0); Monocytes % (A) 15 %; Neutrophils # (A) 8.3 k/uL (1.3-7.7); Neutrophils % (A) 69 %; Platelet Count 370 k/uL (150-450); Poikilocytosis Moderate; RBC 2.48 m/uL (3.80-5.40); RDW 16.7 % (11.5-15.5)
[2018-08-13 11:37] LABS: Albumin 2.9 g/dL (3.5-5.0); Calcium 8.1 mg/dL (8.4-10.2); Potassium 3.4 mmol/L (3.5-5.1); Total Bilirubin 0.6 mg/dL (0.2-1.3); Total Protein 6.1 g/dL (6.3-8.2)
[2018-08-13 11:40] LABS: HGB 6.3 gm/dL (11.4-16.0)
[2018-08-13 11:41] LABS: MCV 87.3 fL (80.0-100.0)
[2018-08-13 11:42] LABS: INR 1.1 (<1.2); Prothrombin Time 10.5 sec (9.0-12.0)
--- NOTE | 2018-08-13 11:49 | CT ---
EXAMINATION TYPE: CT brain wo con DATE OF EXAM: 08/13/2018 COMPARISON: 07/10/2018 HISTORY: 73-year-old female Pain TECHNIQUE: Examination was done in axial plane without intravenous contrast. Coronal and sagittal r econstructions performed. CT DLP: 1239 mGycm Automated exposure control for dose reduction was used. FINDINGS: There is no evidence of acute intracranial hemorrhage, acute ischemic changes, mass, mass-effect, or extra-axial fluid collection. There is no effacement of cerebral sulci or basal subarachnoid cister ns. There is no hydrocephalus. There is no midline shift. Landaverde-white matter distinction is preserv ed. Prior small craniectomy defect along the left para median suboccipital region. There is underlying en cephalomalacia within the left cerebellar hemisphere unchanged from prior. Additional areas of enceph alomalacia within the right frontal lobe and right occipital lobe also unchanged. Moderate confluent white matter hypodensities compatible with changes of chronic small vessel ischemi c disease. Mild ventriculomegaly is also unchanged likely relating to central cerebral atrophy. Rightward nasal septal deviation. Paranasal sinuses are clear. Orbits and globes are intact. Minimal partial opacification inferior right mastoid air cells. IMPRESSION: Stable multifocal old infarcts, right frontal lobe, right occipital lobe, and left cerebellar hemisph ere. Background of moderate confluent changes of chronic small vessel ischemic disease and mild centr al cerebral atrophy. No acute intracranial abnormality seen.
[2018-08-13 11:54] LABS: Partial Thromboplastin Time 20.9 sec (22.0-30.0)
--- NOTE | 2018-08-13 12:00 | XR ---
EXAMINATION TYPE: XR tibia fibula 2 views RT, XR ankle complete 3 views RT DATE OF EXAM: 08/13/2018 COMPARISON: NONE HISTORY: 73-year-old female with pain FINDINGS: Right tibia/fibula: There is a minimally offset transverse fracture of the proximal fibular shaft. Right ankle: Nondisplaced to minimally displaced transverse fracture lower aspect of the medial malleolus with adj acent soft tissue. No posterior malleolar fracture fragment is seen. Talar dome appears intact. No ab normal syndesmotic widening identified. Os peroneum incidentally noted. IMPRESSION: Unstable Maisonneuve injury with a nondisplaced to minimally displaced medial malleolar fracture and a minimally offset proximal fibular shaft fracture.
[2018-08-13] MEDS ORDERED: ENALAPRILAT 1.25 MG/ML 1 ML VIAL IVP STA (12:16)
[2018-08-13] MEDS ORDERED: PANTOPRAZOLE 40 MG/10 ML VIAL IVP STA (12:16)
[2018-08-13] MEDS ORDERED: NALOXONE 0.4 MG/ML 1 ML VIAL IV PRN (12:18)
[2018-08-13] MEDS ORDERED: ONDANSETRON 4 MG/2 ML VIAL IVP PRN (12:18)
[2018-08-13] MEDS ORDERED: SODIUM CHLORIDE 0.9% 1,000 ML IV ONE (12:18)
[2018-08-13] MEDS ORDERED: ACETAMINOPHEN TAB 325 MG TAB PO PRN (12:18)
[2018-08-13] MEDS ORDERED: MORPHINE SULFATE 4 MG/ML SYRINGE IV STA (12:34)
[2018-08-13] MEDS ORDERED: MELATONIN 3 MG TABLET PO PRN (16:46)
[2018-08-13] MEDS ORDERED: TRIAMCINOLONE 0.1% CREAM 80 GM TUBE TOPICAL PRN (16:46)
[2018-08-13] MEDS ORDERED: ARTIFICIAL TEARS-HYPROMELLOSE DROPS 15 ML BTL BOTH EYES PRN (16:46)
[2018-08-13] MEDS ORDERED: ONDANSETRON 4 MG TAB PO PRN (16:46)
[2018-08-13] MEDS: MORPHINE SULFATE 2 MG/ML SYRINGE IV PRN ×2 (20:00→23:47)
[2018-08-13 20:29] LABS: Glucose,Whole Blood 214 mg/dL (75-99)
[2018-08-13] MEDS: INSULIN DETEMIR 100 UNIT/ML 10 ML VIAL SQ SCH (20:59)
[2018-08-13] MEDS: ATORVASTATIN 40 MG TAB PO SCH (21:17)
[2018-08-13] MEDS: clonazePAM 0.5 MG TAB PO SCH (21:17)
[2018-08-13] MEDS: cloNIDine HCL 0.1 MG TAB PO SCH (21:20)
--- NOTE | 2018-08-13 22:23 | CONS ---
DATE OF CONSULTATION: 08/13/2018 This is a 73-year-old, pleasant female. She has been admitted to Orthopedic service with history of fall today with fractured tibia and fibula. The patient has been put on posterior splint and Carlos wraps with 1 leg elevation. I was consulted for vascular evaluation. PAST MEDICAL HISTORY: Past medical history of diabetes, hypertension, CABG in the past and also patient had a left carotid endarterectomy by Dr. Tahir Vasquez. PAST MEDICAL HISTORY: Past history: Patient had a CVA 9 years ago and she was at [facility] for long- term intensive care with tracheostomy and PEG tube. Last month she had another stroke affected her right side affecting right arm and leg. PERSONAL HISTORY: PATIENT IS ALLERGIC TO REGLAN. PHYSICAL EXAMINATION: Patient was seen in her room. NECK: Supple. CHEST: Clear to auscultation. ABDOMEN: Soft. Femorals are 1+. Posterior dorsalis pedis not palpable. Patient has a Doppler signal of the dorsal pedis on the right foot and left foot. No ischemic ulceration noted. No varicosity noted. This case discussed with Dr. James. 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 She has longstanding history of diabetes. Follow with you. Thank you very much for the consultation. MMODL / IJN: [id number] / MTDD
[2018-08-14] MEDS ORDERED: IPRATROPIUM-ALBUTEROL 3 ML NEB INHALATION PRN (03:13)
[2018-08-14] MEDS: INSULIN ASPART 100 UNIT/ML 1 ML 10 ML VIAL SQ SCH ×5 (03:23→20:33)
[2018-08-14 03:24] LABS: Glucose,Whole Blood 132 mg/dL (75-99)
[2018-08-14] MEDS: clonazePAM 0.5 MG TAB PO SCH ×3 (05:53→20:37)
[2018-08-14 07:06] LABS: Glucose,Whole Blood 143 mg/dL (75-99)
[2018-08-14 08:28] LABS: Albumin 2.5 g/dL (3.5-5.0); Calcium 7.3 mg/dL (8.4-10.2); Potassium 3.2 mmol/L (3.5-5.1); Total Bilirubin 0.7 mg/dL (0.2-1.3); Total Protein 5.5 g/dL (6.3-8.2)
[2018-08-14 08:43] LABS: Anisocytosis Slight; Basophils % (A) 0 %; Eosinophils # (A) 0.2 k/uL (0-0.7); Eosinophils % (A) 2 %; HCT 24.5 % (34.0-46.0); HGB 7.1 gm/dL (11.4-16.0); Hypochromasia Marked; Lymphocytes # (A) 1.4 k/uL (1.0-4.8); Lymphocytes % (A) 13 %; MCH 26.2 pg (25.0-35.0); MCV 90.3 fL (80.0-100.0); Mean Platelet Volume 7.2; Monocytes # (A) 1.4 k/uL (0-1.0); Monocytes % (A) 14 %; Neutrophils # (A) 6.8 k/uL (1.3-7.7); Neutrophils % (A) 66 %; Platelet Count 289 k/uL (150-450); Poikilocytosis Moderate; RBC 2.72 m/uL (3.80-5.40); RDW 16.3 % (11.5-15.5); WBC 10.3 k/uL (3.8-10.6)
[2018-08-14] MEDS ORDERED: CLOPIDOGREL 75 MG TAB PO SCH (09:00)
[2018-08-14] MEDS ORDERED: NON-FORMULARY DRUG (Omeprazole [Omeprazole] 40 MG) PO SCH (09:00)
[2018-08-14] MEDS: ALLOPURINOL 100 MG TAB PO SCH (09:08)
[2018-08-14] MEDS: cloNIDine HCL 0.1 MG TAB PO SCH ×2 (09:08→20:33)
[2018-08-14] MEDS: FUROSEMIDE 20 MG TAB PO SCH (09:09)
[2018-08-14] MEDS: PANTOPRAZOLE 40 MG/10 ML VIAL IVP SCH (09:10)
[2018-08-14] MEDS: SENNOSIDES-DOCUSATE SODIUM 1 EACH TAB PO SCH (09:10)
[2018-08-14] MEDS: PARoxetine 10 MG TAB PO SCH (09:10)
[2018-08-14] MEDS: MORPHINE SULFATE 2 MG/ML SYRINGE IV PRN ×2 (09:12→13:34)
[2018-08-14] MEDS: IPRATROPIUM-ALBUTEROL 3 ML NEB INHALATION SCH ×4 (09:27→20:35)
--- NOTE | 2018-08-14 10:43 | P.CNOR ---
History of Present Illness - HPI Consult date: 08/14/18 History of present illness: This is a 73-year-old female who is admitted after a fall. Patient is seen and evaluated at bedside with Dr. Rashi James. Patient sustained an injury to the right lower extremity after her fall and presented to the emergency room for evaluation. X-rays were done revealing a fracture of the right proximal fibula and medial malleolus. Patient was splinted and admitted to medicine as patient was found to be anemic and had a positive Hemoccult. Today patient does complain of some pain in the left ankle. Patient denies any numbness, weakness, tingling, fever/chills, abdominal pain, shortness breath or chest pain. Patient patient's past medical history significant for coronary artery disease, COPD, CVA, dementia, diabetes mellitus, GERD, hyperlipidemia, hypertension, renal disease, syncope, and skin cancer. Review of Systems See HPI. Past Medical History Past Medical History: Coronary Artery Disease (CAD), Cancer, COPD, CVA/TIA, Dementia, Diabetes Mellitus, GERD/Reflux, Hyperlipidemia, Hypertension, Osteoarthritis (OA), Renal Disease, Syncope Additional Past Medical History / Comment(s): 07/10/18 cva affected dominant rt side. 2008 CVA affected balance/coordination/short term memory/ caused chronic nausea and impulsiveness/ pt was trached and had a peg tube, IDDM type II, CKD stage III, problems with potassium levels, low back pain with sciatica, gout in hands/feet, skin cancer with removal, urinary incontinence and occasional diarrhea. History of Any Multi-Drug Resistant Organisms: None Reported Past Surgical History: Back Surgery, Coronary Bypass/CABG, Heart Catheterization , Hysterectomy, Orthopedic Surgery Additional Past Surgical History / Comment(s): Bilateral carotid endarectmy, CVA and had posterior craniotomy/brain surgery to remove blood clot/trach, peg since removed, 2011 CABG 4 vessel, 2 back surgeries, bilateral carpal tunnel releases, bilateral cataract removals/lens implants, colonoscopy with benign polyp, skin cancer removal. Past Anesthesia/Blood Transfusion Reactions: No Reported Reaction Smoking Status: Former smoker - Past Family History Mother Family Medical History: CVA/TIA Additional Family Medical History / Comment(s): Mother of a CVA at the age of 47yrs. Father Family Medical History: Myocardial Infarction ([place]) Additional Family Medical History / Comment(s): Father of a DE around age 60yrs. Medications and Allergies Home Medications Medication Instructions Recorded Confirmed Type Ergocalciferol [Vitamin D2 50,000 unit PO Q14D 12/04/14 08/13/18 History (DRISDOL)] Melatonin 3 mg PO HS PRN 12/04/14 08/13/18 History Omeprazole 40 mg PO DAILY 12/04/14 08/13/18 History Acetaminophen Tab [Tylenol] 1,000 mg PO Q6HR PRN 07/20/15 08/13/18 History Albuterol Inhaler [Ventolin Hfa 2 puff INHALATION RT-HS 07/20/15 08/13/18 History Inhaler] Hypromellose [Artificial Tears] 1 drop BOTH EYES DAILY PRN 07/20/15 08/13/18 History Allopurinol [Zyloprim] 100 mg PO DAILY 06/01/17 08/13/18 History Calcitriol [Rocaltrol] 0.25 mcg PO MOTHSA 06/01/17 08/13/18 History Insulin Glargine,Hum.rec.anlog 30 unit SQ HS 06/01/17 08/13/18 History [Lantus Solostar] Ondansetron [Zofran] 4 mg PO Q6H PRN 06/01/17 08/13/18 History Triamcinolone 0.1% Cream [Kenalog 1 applicatio TOPICAL BID PRN 06/01/17 History 0.1% Cream] Furosemide [Lasix] 20 mg PO DAILY 07/03/18 08/13/18 History Albuterol Inhaler [Ventolin Hfa 1 - 2 puff INHALATION RT-Q4H PRN 07/10/18 History Inhaler] Atorvastatin [Lipitor] 40 mg PO HS tab 07/16/18 08/13/18 Rx Clopidogrel [Plavix] 75 mg PO DAILY tab 07/16/18 08/13/18 Rx PARoxetine [Paxil] 10 mg PO DAILY tab 07/16/18 08/13/18 Rx cloNIDine HCL [Catapres] 0.1 mg PO BID tab 07/16/18 08/13/18 Rx Cauxpqfgjogrzi-BK-Gjxjuqnuer 1 tab PO DAILY 08/13/18 08/13/18 History [Folbic] Insulin Aspart [NovoLOG See Protocol SQ ACHS 08/13/18 08/13/18 History (formulary)] Sennosides-Docusate Sodium 1 tab PO DAILY 08/13/18 08/13/18 History [Senokot-S] clonazePAM [KlonoPIN] 0.5 mg PO TID@05,13,21 08/13/18 08/13/18 History Allergies Allergy/AdvReac Type Severity Reaction Status Date / Time benztropine mesylate Allergy Unknown Verified 08/13/18 10:28 [From Cogentin] donepezil [From Aricept] Allergy Unknown Verified 08/13/18 10:28 metoclopramide HCl Allergy Unknown Verified 08/13/18 10:28 [From Reglan] prochlorperazine edisylate Allergy Unknown Verified 08/13/18 10:28 [From Compazine] prochlorperazine maleate Allergy Unknown Verified 08/13/18 10:28 [From Compazine] Physical Examination On exam patient is lying comfortably in bed in no acute distress. There is a long leg splint intact to the right lower extremity. Right lower extremity is warm and well perfused. Capillary refill is normal at less than 2 seconds. Patient has good range of motion of the toes of the right foot. Calf is soft and nontender to palpation. Neurovascular status and circulatory status are intact. Results X-rays of the right tib-fib and right ankle reveal a proximal fibula fracture and medial malleolus fracture. No dislocation. - Labs Labs: Abnormal Lab Results - Last 24 Hours (Table) 08/13/18 08/13/18 08/13/18 Range/Units 11:01 11:01 11:01 WBC 12.0 H (3.8-10.6) k/uL RBC 2.48 L (3.80-5.40) m/uL Hgb 6.3 L* (11.4-16.0) gm/dL Hct 21.6 L (34.0-46.0) % MCHC 29.3 L (31.0-37.0) g/dL RDW 16.7 H (11.5-15.5) % Neutrophils # 8.3 H (1.3-7.7) k/uL Monocytes # 1.8 H (0-1.0) k/uL APTT 20.9 L (22.0-30.0) sec Sodium 133 L (137-145) mmol/L Potassium 3.4 L (3.5-5.1) mmol/L Chloride 92 L (98-107) mmol/L Carbon Dioxide 33 H (22-30) mmol/L BUN 26 H (7-17) mg/dL Creatinine 1.26 H (0.52-1.04) mg/dL Glucose 133 H (74-99) mg/dL POC Glucose (mg/dL) (75-99) mg/dL Calcium 8.1 L (8.4-10.2) mg/dL Total Protein 6.1 L (6.3-8.2) g/dL Albumin 2.9 L (3.5-5.0) g/dL Urine Appearance (Clear) Urine Protein (Negative) Urine Blood (Negative) Ur Leukocyte Esterase (Negative) Urine RBC (0-5) /hpf Urine WBC (0-5) /hpf Ur Squamous Epith Cells (0-4) /hpf Amorphous Sediment (None) /hpf Urine Bacteria (None) /hpf Crossmatch 08/13/18 08/13/18 08/13/18 Range/Units 11:01 11:01 20:27 WBC (3.8-10.6) k/uL RBC (3.80-5.40) m/uL Hgb (11.4-16.0) gm/dL Hct (34.0-46.0) % MCHC (31.0-37.0) g/dL RDW (11.5-15.5) % Neutrophils # (1.3-7.7) k/uL Monocytes # (0-1.0) k/uL APTT (22.0-30.0) sec Sodium (137-145) mmol/L Potassium (3.5-5.1) mmol/L Chloride (98-107) mmol/L Carbon Dioxide (22-30) mmol/L BUN (7-17) mg/dL Creatinine (0.52-1.04) mg/dL Glucose (74-99) mg/dL POC Glucose (mg/dL) 214 H (75-99) mg/dL Calcium (8.4-10.2) mg/dL Total Protein (6.3-8.2) g/dL Albumin (3.5-5.0) g/dL Urine Appearance Turbid H (Clear) Urine Protein 3+ H (Negative) Urine Blood Large H (Negative) Ur Leukocyte Esterase Moderate H (Negative) Urine RBC 17 H (0-5) /hpf Urine WBC 8 H (0-5) /hpf Ur Squamous Epith Cells 11 H (0-4) /hpf Amorphous Sediment Rare H (None) /hpf Urine Bacteria Few H (None) /hpf Crossmatch See Detail 08/14/18 08/14/18 08/14/18 Range/Units 03:19 07:05 07:26 WBC (3.8-10.6) k/uL RBC 2.72 L (3.80-5.40) m/uL Hgb 7.1 L (11.4-16.0) gm/dL Hct 24.5 L (34.0-46.0) % MCHC 29.0 L (31.0-37.0) g/dL RDW 16.3 H (11.5-15.5) % Neutrophils # (1.3-7.7) k/uL Monocytes # 1.4 H (0-1.0) k/uL APTT (22.0-30.0) sec Sodium (137-145) mmol/L Potassium (3.5-5.1) mmol/L Chloride (98-107) mmol/L Carbon Dioxide (22-30) mmol/L BUN (7-17) mg/dL Creatinine (0.52-1.04) mg/dL Glucose (74-99) mg/dL POC Glucose (mg/dL) 132 H 143 H (75-99) mg/dL Calcium (8.4-10.2) mg/dL Total Protein (6.3-8.2) g/dL Albumin (3.5-5.0) g/dL Urine Appearance (Clear) Urine Protein (Negative) Urine Blood (Negative) Ur Leukocyte Esterase (Negative) Urine RBC (0-5) /hpf Urine WBC (0-5) /hpf Ur Squamous Epith Cells (0-4) /hpf Amorphous Sediment (None) /hpf Urine Bacteria (None) /hpf Crossmatch 08/14/18 Range/Units 07:26 WBC (3.8-10.6) k/uL RBC (3.80-5.40) m/uL Hgb (11.4-16.0) gm/dL Hct (34.0-46.0) % MCHC (31.0-37.0) g/dL RDW (11.5-15.5) % Neutrophils # (1.3-7.7) k/uL Monocytes # (0-1.0) k/uL APTT (22.0-30.0) sec Sodium 134 L (137-145) mmol/L Potassium 3.2 L (3.5-5.1) mmol/L Chloride 94 L (98-107) mmol/L Carbon Dioxide 31 H (22-30) mmol/L BUN 25 H (7-17) mg/dL Creatinine 1.36 H (0.52-1.04) mg/dL Glucose 117 H (74-99) mg/dL POC Glucose (mg/dL) (75-99) mg/dL Calcium 7.3 L (8.4-10.2) mg/dL Total Protein 5.5 L (6.3-8.2) g/dL Albumin 2.5 L (3.5-5.0) g/dL Urine Appearance (Clear) Urine Protein (Negative) Urine Blood (Negative) Ur Leukocyte Esterase (Negative) Urine RBC (0-5) /hpf Urine WBC (0-5) /hpf Ur Squamous Epith Cells (0-4) /hpf Amorphous Sediment (None) /hpf Urine Bacteria (None) /hpf Crossmatch Microbiology - Last 24 Hours (Table) 08/13/18 11:01 Urine Culture - Preliminary Urine,Voided H & H 08/13/18 08/14/18 Range/Units 11:01 07:26 Hgb 6.3 L* 7.1 L (11.4-16.0) gm/dL Hct 21.6 L 24.5 L (34.0-46.0) % Coagulation 08/13/18 Range/Units 11:01 INR 1.1 (<1.2) Result Diagrams: 08/14/18 07:26 08/14/18 07:26 Assessment and Plan (1) Anemia Current Visit: Yes Status: Acute Code(s): D64.9 - ANEMIA, UNSPECIFIED SNOMED Code(s): 638339709 (2) Fall Current Visit: Yes Status: Acute Code(s): W19.XXXA - UNSPECIFIED FALL, INITIAL ENCOUNTER SNOMED Code(s): 1927017 (3) GI bleed Current Visit: Yes Status: Acute Code(s): K92.2 - GASTROINTESTINAL HEMORRHAGE, UNSPECIFIED SNOMED Code(s): 41123384 (4) Maisonneuve fracture Current Visit: Yes Status: Acute Code(s): S82.863A - DISPLACED MAISONNEUVE' S FRACTURE OF UNSP LEG, INIT SNOMED Code(s): 02833016 Plan: 1. We'll obtain a boot for the right lower extremity. 2. Patient may be 50% weightbearing to the right lower extremity using a walker. 3. Continue pain control. 4. Rest ice and elevate the right lower extremity. 5. No surgical intervention planned. Will continue to follow.
[2018-08-14 11:13] LABS: Glucose,Whole Blood 162 mg/dL (75-99)
--- NOTE | 2018-08-14 11:17 | P.CONS ---
History of Present Illness - Reason for Consult Consult date: 08/14/18 GI bleed Requesting physician: Tong Larios - Chief Complaint Fall history of CVA - History of Present Illness 73 years female history of GERD, chronic disease stage III admitted status post fall and fractured tib-fib with a history of CVA in June. Past medical history of prior CVA several years ago requiring trach/PEG, carotid endarterectomy in CABG hypertension and diabetes. Consultation requested for possible GI bleed anemia. Admission hemoglobin 6.3. MCV 87. Platelet 370. White count 12. INR 1.1. BUN 26. Creatinine 1.2. Urinalysis large amount of blood and moderate leukocyte esterase few bacteria. Daughter at bedside and provided additional medical history. According to the daughter her mother has been receiving Procrit injections for a nonbleeding anemia for the last several months. Anemia was noted he had outpatient chemistries less than 6 months ago. No history of GI bleeds. Last colonoscopy more than 9 years ago EGD was about 5 years ago. Previous hemoglobin 08/06/2018 was 7 and on 07/10/2018 was 10.0. Hemoglobin in November 2017 was 13. Average hemoglobin range November-March of this year was between 11-12. Received 1 unit of blood. Denies overt bleeding hematemesis hematochezia or melena. Denies abdominal pain or weight loss. No changes in appetite. No NSAID alcohol or aspirin usage. Medications include but not limited to Plavix daily as well as omeprazole 40 mg daily. Review of Systems Constitutional: Denies fever, chills, sweats, weight gain, or loss. HEENT: Negative for migraines, blurred vision or loss, earaches, drainage, tinnitus, oral mucosal lesions, dysphagia, or odynophagia. CARDIAC: Negative for chest pain, arrhythmias, or palpitation. RESPIRATORY: Negative for shortness of breath, hemoptysis, cough, or sputum production. GI: See HPI for pertinent findings. : Negative for hematuria, urgency, frequency, polyuria, or dysuria. GYNc: Negative vaginal discharge. MUSCULOSKELETAL: Negative for muscle aches, swelling, arthritis, and arthralgias. NEUROLOGIC: Negative for stroke or TIA. ENDOCRINE: Negative for thyroid problems. SKIN: Negative for rash or itching. 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 2008 CVA affected balance/coordination/short term memory/ caused chronic nausea and impulsiveness/ pt was trached and had a peg tube, IDDM type II, CKD stage III, problems with potassium levels, low back pain with sciatica, gout in hands/feet, skin cancer with removal, urinary incontinence and occasional diarrhea. History of Any Multi-Drug Resistant Organisms: None Reported Past Surgical History: Back Surgery, Coronary Bypass/CABG, Heart Catheterization , Hysterectomy, Orthopedic Surgery Additional Past Surgical History / Comment(s): Bilateral carotid endarectmy, CVA and had posterior craniotomy/brain surgery to remove blood clot/trach, peg since removed, 2011 CABG 4 vessel, 2 back surgeries, bilateral carpal tunnel releases, bilateral cataract removals/lens implants, colonoscopy with benign polyp, skin cancer removal. Past Anesthesia/Blood Transfusion Reactions: No Reported Reaction Smoking Status: Former smoker - Past Family History Mother Family Medical History: CVA/TIA Additional Family Medical History / Comment(s): Mother of a CVA at the age of 47yrs. Father Family Medical History: Myocardial Infarction ([place]) Additional Family Medical History / Comment(s): Father of a LA around age 60yrs. Medications and Allergies Home Medications Medication Instructions Recorded Confirmed Type Ergocalciferol [Vitamin D2 50,000 unit PO Q14D 12/04/14 08/13/18 History (DRISDOL)] Melatonin 3 mg PO HS PRN 12/04/14 08/13/18 History Omeprazole 40 mg PO DAILY 12/04/14 08/13/18 History Acetaminophen Tab [Tylenol] 1,000 mg PO Q6HR PRN 07/20/15 08/13/18 History Albuterol Inhaler [Ventolin Hfa 2 puff INHALATION RT-HS 07/20/15 08/13/18 History Inhaler] Hypromellose [Artificial Tears] 1 drop BOTH EYES DAILY PRN 07/20/15 08/13/18 History Allopurinol [Zyloprim] 100 mg PO DAILY 06/01/17 08/13/18 History Calcitriol [Rocaltrol] 0.25 mcg PO MOTHSA 06/01/17 08/13/18 History Insulin Glargine,Hum.rec.anlog 30 unit SQ HS 06/01/17 08/13/18 History [Lantus Solostar] Ondansetron [Zofran] 4 mg PO Q6H PRN 06/01/17 08/13/18 History Triamcinolone 0.1% Cream [Kenalog 1 applicatio TOPICAL BID PRN 06/01/17 History 0.1% Cream] Furosemide [Lasix] 20 mg PO DAILY 07/03/18 08/13/18 History Albuterol Inhaler [Ventolin Hfa 1 - 2 puff INHALATION RT-Q4H PRN 07/10/18 History Inhaler] Atorvastatin [Lipitor] 40 mg PO HS tab 07/16/18 08/13/18 Rx Clopidogrel [Plavix] 75 mg PO DAILY tab 07/16/18 08/13/18 Rx PARoxetine [Paxil] 10 mg PO DAILY tab 07/16/18 08/13/18 Rx cloNIDine HCL [Catapres] 0.1 mg PO BID tab 07/16/18 08/13/18 Rx Raxyelwgpbhyfb-XM-Fidhvavjiq 1 tab PO DAILY 08/13/18 08/13/18 History [Folbic] Insulin Aspart [NovoLOG See Protocol SQ ACHS 08/13/18 08/13/18 History (formulary)] Sennosides-Docusate Sodium 1 tab PO DAILY 08/13/18 08/13/18 History [Senokot-S] clonazePAM [KlonoPIN] 0.5 mg PO TID@05,13,21 08/13/18 08/13/18 History Allergies Allergy/AdvReac Type Severity Reaction Status Date / Time benztropine mesylate Allergy Unknown Verified 08/13/18 10:28 [From Cogentin] donepezil [From Aricept] Allergy Unknown Verified 08/13/18 10:28 metoclopramide HCl Allergy Unknown Verified 08/13/18 10:28 [From Reglan] prochlorperazine edisylate Allergy Unknown Verified 08/13/18 10:28 [From Compazine] prochlorperazine maleate Allergy Unknown Verified 08/13/18 10:28 [From Compazine] Physical Exam Vitals: Vital Signs Temp Pulse Pulse Resp BP BP Pulse Ox 08/14/18 08:19 97.9 F 83 16 156/91 99 08/14/18 05:21 97.7 F 92 16 174/65 97 08/14/18 03:35 84 08/14/18 03:26 84 08/14/18 00:00 80 18 08/13/18 22:00 97.3 F L 79 18 175/70 99 08/13/18 20:27 98.0 F 80 16 146/65 99 08/13/18 18:32 97.5 F L 76 18 181/77 95 08/13/18 18:02 98.6 F 100 20 171/91 94 L 08/13/18 17:52 93 18 190/69 92 L 08/13/18 16:12 97.3 F L 73 18 168/67 96 08/13/18 15:41 97.6 F 75 18 162/69 95 08/13/18 15:15 75 18 162/69 95 08/13/18 14:12 75 18 157/64 93 L 08/13/18 13:09 85 18 194/80 95 08/13/18 12:15 205/91 08/13/18 10:49 212/83 08/13/18 10:30 97.6 F 92 18 218/81 97 Intake and Output 08/13/18 08/14/18 08/14/18 22:59 06:59 14:59 Intake Total 510 1280 Balance 510 1280 Intake: Intake, IV Titration 750 Amount Sodium Chloride 0.9% 1, 750 000 ml @ 75 mls/hr IV . [id number] ONE Rx#:[id number] Oral 200 220 Blood Product 310 310 Rc As-1 Unit 310 [id number] Other: Voiding Method Bedpan Bedpan Bedpan # Voids 2 2 Weight 90.718 kg General appearance: The patient is alert, oriented, in no acute distress. HET: Head is normocephalic and atraumatic. Pupils are equal and reactive. Oropharynx is clear without lesions. Neck: Supple without lymphadenopathy. Trachea midline. Heart: S1 S2. Regular rate and rhythm. Lungs: No crackles or wheezes are heard. Abdomen: Soft, nontender, nondistended with bowel sounds. No peritoneal signs. No palpable organomegaly or masses. Extremities: Right-sided weakness. Right lower extremity splint. Normal skin color and turgor. No cyanosis, rash, ulceration, clubbing, or edema. Radial and pedal pulses are 2/4 bilaterally. Neurological: Right-sided weakness. Results CBC & Chem 7: 08/14/18 07:26 08/14/18 07:26 Labs: Abnormal Lab Results - Last 24 Hours (Table) 08/13/18 08/13/18 08/13/18 Range/Units 11:01 11:01 11:01 WBC 12.0 H (3.8-10.6) k/uL RBC 2.48 L (3.80-5.40) m/uL Hgb 6.3 L* (11.4-16.0) gm/dL Hct 21.6 L (34.0-46.0) % MCHC 29.3 L (31.0-37.0) g/dL RDW 16.7 H (11.5-15.5) % Neutrophils # 8.3 H (1.3-7.7) k/uL Monocytes # 1.8 H (0-1.0) k/uL APTT 20.9 L (22.0-30.0) sec Sodium 133 L (137-145) mmol/L Potassium 3.4 L (3.5-5.1) mmol/L Chloride 92 L (98-107) mmol/L Carbon Dioxide 33 H (22-30) mmol/L BUN 26 H (7-17) mg/dL Creatinine 1.26 H (0.52-1.04) mg/dL Glucose 133 H (74-99) mg/dL POC Glucose (mg/dL) (75-99) mg/dL Calcium 8.1 L (8.4-10.2) mg/dL Total Protein 6.1 L (6.3-8.2) g/dL Albumin 2.9 L (3.5-5.0) g/dL Urine Appearance (Clear) Urine Protein (Negative) Urine Blood (Negative) Ur Leukocyte Esterase (Negative) Urine RBC (0-5) /hpf Urine WBC (0-5) /hpf Ur Squamous Epith Cells (0-4) /hpf Amorphous Sediment (None) /hpf Urine Bacteria (None) /hpf Crossmatch 08/13/18 08/13/18 08/13/18 Range/Units 11:01 11:01 20:27 WBC (3.8-10.6) k/uL RBC (3.80-5.40) m/uL Hgb (11.4-16.0) gm/dL Hct (34.0-46.0) % MCHC (31.0-37.0) g/dL RDW (11.5-15.5) % Neutrophils # (1.3-7.7) k/uL Monocytes # (0-1.0) k/uL APTT (22.0-30.0) sec Sodium (137-145) mmol/L Potassium (3.5-5.1) mmol/L Chloride (98-107) mmol/L Carbon Dioxide (22-30) mmol/L BUN (7-17) mg/dL Creatinine (0.52-1.04) mg/dL Glucose (74-99) mg/dL POC Glucose (mg/dL) 214 H (75-99) mg/dL Calcium (8.4-10.2) mg/dL Total Protein (6.3-8.2) g/dL Albumin (3.5-5.0) g/dL Urine Appearance Turbid H (Clear) Urine Protein 3+ H (Negative) Urine Blood Large H (Negative) Ur Leukocyte Esterase Moderate H (Negative) Urine RBC 17 H (0-5) /hpf Urine WBC 8 H (0-5) /hpf Ur Squamous Epith Cells 11 H (0-4) /hpf Amorphous Sediment Rare H (None) /hpf Urine Bacteria Few H (None) /hpf Crossmatch See Detail 08/14/18 08/14/18 08/14/18 Range/Units 03:19 07:05 07:26 WBC (3.8-10.6) k/uL RBC (3.80-5.40) m/uL Hgb (11.4-16.0) gm/dL Hct (34.0-46.0) % MCHC (31.0-37.0) g/dL RDW (11.5-15.5) % Neutrophils # (1.3-7.7) k/uL Monocytes # (0-1.0) k/uL APTT (22.0-30.0) sec Sodium 134 L (137-145) mmol/L Potassium 3.2 L (3.5-5.1) mmol/L Chloride 94 L (98-107) mmol/L Carbon Dioxide 31 H (22-30) mmol/L BUN 25 H (7-17) mg/dL Creatinine 1.36 H (0.52-1.04) mg/dL Glucose 117 H (74-99) mg/dL POC Glucose (mg/dL) 132 H 143 H (75-99) mg/dL Calcium 7.3 L (8.4-10.2) mg/dL Total Protein 5.5 L (6.3-8.2) g/dL Albumin 2.5 L (3.5-5.0) g/dL Urine Appearance (Clear) Urine Protein (Negative) Urine Blood (Negative) Ur Leukocyte Esterase (Negative) Urine RBC (0-5) /hpf Urine WBC (0-5) /hpf Ur Squamous Epith Cells (0-4) /hpf Amorphous Sediment (None) /hpf Urine Bacteria (None) /hpf Crossmatch Microbiology - Last 24 Hours (Table) 08/13/18 11:01 Urine Culture - Preliminary Urine,Voided Assessment and Plan (1) Symptomatic anemia Narrative/Plan: 73-year-old female admitted with acute symptomatic normocytic hypochromic anemia possible acute blood loss anemia with right lower extremity nonsurgical tibia-fibula fracture underlying chronic kidney disease stage III. Patient denies overt bleeding such as hematemesis hematochezia melena however occult GI loss cannot be entirely excluded. Current Visit: Yes Status: Acute Code(s): D64.9 - ANEMIA, UNSPECIFIED SNOMED Code(s): 800178707 (2) Chronic kidney disease Current Visit: Yes Status: Acute Code(s): N18.9 - CHRONIC KIDNEY DISEASE, UNSPECIFIED SNOMED Code(s): 650675742 (3) Maisonneuve fracture Current Visit: Yes Status: Acute Code(s): S82.863A - DISPLACED MAISONNEUVE' S FRACTURE OF UNSP LEG, INIT SNOMED Code(s): 06009145 Plan: 1. CBC monitoring. Liquid diet. Protonix 40 mg daily. We'll proceed with EGD colonoscopy evaluation Sunday family request a 2 day prep; patient has difficulty tolerating bowel prep secondary to GERD and chronic nausea with large volume liquids. 2. Iron indices. 3. FOBT requested. The cosmetic assembler has discussed the risks, benefits and alternative therapies for the above-mentioned procedure and for both sedation/analgesia as well as necessary blood product administration, if indicated, as they pertain to this patient. The patient has indicated understanding and acceptance of the risks and procedures discussed. Thank you for this kind referral and the opportunity to participate in the care of your patient. This consultation was discussed with Dr. Treviño. The impression and plan of care have been directed as dictated.
[2018-08-14] MEDS ORDERED: BISACODYL 5 MG TABLET.DR PO STA (11:18)
[2018-08-14] MEDS: POLYETHYLENE GLYCOL 3350 17 GM POWD.PACK PO SCH ×2 (11:58→20:33)
[2018-08-14] MEDS: CYANOCOBALAMIN-FA-PYRIDOXINE 1 EACH TAB PO SCH (11:58)
[2018-08-14 14:40] LABS: Hemoglobin A1C 6.7 % (4.0-6.0)
[2018-08-14] MEDS ORDERED: FUROSEMIDE 10 MG/ML 2 ML VIAL IV STA (16:52)
[2018-08-14 17:03] LABS: Glucose,Whole Blood 181 mg/dL (75-99)
--- NOTE | 2018-08-14 17:15 | XR ---
EXAMINATION TYPE: XR chest 1V portable DATE OF EXAM: 08/14/2018 COMPARISON: July 14, 2018 HISTORY: Short of breath TECHNIQUE: Single frontal view of the chest is obtained. FINDINGS: Heart appears enlarged. There are infiltrates in the lower lung cohen. There is slight bl unting of costophrenic angles. There are sternal wires. IMPRESSION: New lower lobe pulmonary infiltrate compared to last exam. No overt heart failure. There is probably small stable pleural effusions.
[2018-08-14] MEDS ORDERED: MORPHINE SULFATE 2 MG/ML SYRINGE IVP PRN (17:34)
[2018-08-14 18:58] LABS: Iron Saturation 7.24 (12.00-45.00)
[2018-08-14] MEDS ORDERED: methylPREDNISolone SOD SUCCI 125 MG/2 ML VIAL IV STA (19:38)
[2018-08-14] MEDS: MORPHINE SULFATE 2 MG/ML SYRINGE IVP PRN (19:43)
--- NOTE | 2018-08-14 20:18 | HP ---
HISTORY AND PHYSICAL DATE OF ADMISSION: 08/13/2018 DATE OF SERVICE: 08/13/2018 PRESENTING COMPLAINT: Low hemoglobin. HISTORY OF PRESENTING COMPLAINT: This patient was seen and examined yesterday on 08/13/2018. I did a history and physical and I spoke to Clinic Physician Director. It cannot be found, so I am dictating again. This patient was recently in the hospital. She was admitted on 07/10/2018 and discharged on 07/17/2018. Patient on that admission had an acute stroke in the left middle cerebral artery, leaving the patient weak on the right side and affecting the speech. Patient's chronic stable medical conditions include coronary artery disease with prior bypass, COPD, dementia from previous strokes, diabetes, GERD, hypertension, chronic kidney disease, stage III. Patient has been able to use a walker and did take a few steps in the rehab. Patient was sent in, as patient's hemoglobin was found to be 6.3. It may be noted that patient's hemoglobin was 10 when the patient had left the hospital. A unit of blood was ordered by me. At the same time, patient was trying to transfer from her wheelchair to the bed, took a fall and suffered a fracture of the right ankle, including the medial malleolus, and this was strapped down. REVIEW OF SYSTEMS: CONSTITUTIONAL: Tired. HEENT: None. RESPIRATORY: Baseline short of breath. CARDIOVASCULAR: None. GASTROINTESTINAL: None. GENITOURINARY: None. MUSCULOSKELETAL: Some pain in the joints. DERMATOLOGICAL: None. HEMATOLOGICAL: None. LYMPHATICS: None. PSYCHIATRY: Patient is forgetful. NEUROLOGICAL: Weakness on the right side. Speech is slow. PAST MEDICAL HISTORY: 1. Acute stroke in the left middle cerebral artery recently. 2. Coronary artery disease with bypass. 3. COPD. 4. Multi-infarct dementia. 5. Diabetes. 6. GERD. 7. Hyperlipidemia. 8. Hypertension. 9. Osteoarthritis. 10.Chronic kidney disease, stage III. 11.Chronic low back pain. 12.Sciatica. 13.Chronic urine incontinence. 14.Dysarthria from recent stroke. 15.Generalized anxiety. PAST SURGICAL HISTORY: 1. Back surgery x2. 2. Coronary artery bypass. 3. Bilateral carotid endarterectomy. 4. Stroke and posterior craniotomy, brain surgery to remove blood clot. 5. Trach and PEG tube, since removed. 6. Four-vessel bypass in 2011. 7. Bilateral carpal tunnel release. 8. Bilateral cataracts removed. SOCIAL HISTORY: Patient is currently a resident of [facility]. Does need assistance from staff. Patient smoked for 45 years, stopped in 2009. Smoked a pack and a half a day. No alcohol. FAMILY HISTORY: Father of heart attack in his 60s. HOME MEDICATIONS: 1. Klonopin 0.5 mg p.o. t.i.d. 2. Catapres 0.1 mg p.o. b.i.d. 3. Kenalog 0.1% topically b.i.d. p.r.n. 4. Senokot S 1 tablet p.o. daily. 5. Paxil 10 mg a day. 6. Zofran 4 mg q.6 p.r.n. 7. Omeprazole 40 mg p.o. daily. 8. Melatonin 3 mg at bedtime p.r.n. 9. Insulin sliding scale. 10.Lantus 30 units subcutaneously at bedtime. 11.Artificial Tears 1 drop both eyes daily p.r.n. 12.Lasix 40 mg p.o. daily. 13.Vitamin D2 50,000 units p.o. q.14 days. 14.Folbic 1 tablet p.o. daily. 15.Plavix 75 mg a day. 16.Rocaltrol 0.25 mcg p.o. Sunday, , Sunday. 17.Lipitor 40 mg at bedtime. 18.Allopurinol 100 mg p.o. daily. 19.Ventolin HFA 1-2 puffs q.4 p.r.n. 20.Tylenol 1000 mg q.6 p.r.n. ALLERGIES: 1. COGENTIN. 2. ARICEPT. 3. REGLAN. 4. COMPAZINE. PHYSICAL EXAMINATION: VITAL SIGNS ON PRESENTATION: Temperature 97.6, pulse 92, respiration 18, blood pressure 218/81, pulse ox 97% on room air. Repeat pressure was down to 157/64. GENERAL APPEARANCE: Well built; BMI 31.3. Lying in bed, awake. EYES: Pupils equal. Conjunctivae normal. HEENT: External appearance of nose and ears normal. Oral cavity normal. NECK: JVD unable to assess. Mass not palpable. RESPIRATORY: Effort normal. LUNGS: Decreased breath sounds. Some very mild wheezing. CARDIOVASCULAR: First and second sounds normal. No edema. ABDOMEN: Soft, non-tender. Liver and spleen not palpable. LYMPHATIC: No lymph node palpable in neck or axillae. PSYCHIATRY: Patient is able answer simple questions. NEUROLOGICAL: Pupils equal. Speech is slow and staggered. Power in the right arm is about 3/5. Right leg is weak with a dressing in place. INVESTIGATIONS: White count 12, hemoglobin 6.3. Hemoglobin was 10 two weeks ago. Potassium 3.4, BUN 26, creatinine 1.26. Creatinine was 1.43 on 07/10/2018. ASSESSMENT: 1. Acute normocytic anemia. Strongly suspect GI bleed in a patient who is on antiplatelet agents. 2. Right ankle fracture with a medial malleolus and fibular fracture secondary to fall. 3. Acute ischemic stroke in the left middle cerebral artery in a right-handed patient about 10 days ago affecting the right side of the body. 4. Acute dysarthria from above. 5. Coronary artery disease with prior history of coronary artery bypass. 6. Chronic obstructive pulmonary disease in an ex-smoker. 7. Multi-infarct dementia causing some cognitive impairment, moderate. 8. Diabetes mellitus, type 2, chronically on insulin. 9. Gastroesophageal reflux disease. 10.Hyperlipidemia. 11.Hypertensive urgency, present on admission. 12.Primary osteoarthritis. 13.Chronic kidney disease, stage III, from nephrosclerosis. 14.Chronic low back pain from sciatica. 15.Chronic urine incontinence. 16.Generalized anxiety not otherwise specified. PLAN: Consultation was requested from GI and Orthopedics. Home medications are resumed. A unit of blood was transfused. Bronchodilators were added. Care was discussed with the patient. Currently no family is present. MMODL / IJN: [id number] /
[2018-08-14 20:27] LABS: Glucose,Whole Blood 107 mg/dL (75-99)
[2018-08-14] MEDS: PIPERACILLIN-TAZOBACTAM 3.375 GM in DEXTROSE/WATER 1 50ML.BAG IVPB SCH (20:29)
[2018-08-14] MEDS: ATORVASTATIN 40 MG TAB PO SCH (20:33)
[2018-08-14] MEDS: BUDESONIDE 1 MG/2 ML NEBU INHALATION SCH (20:35)
[2018-08-14] MEDS: INSULIN DETEMIR 100 UNIT/ML 10 ML VIAL SQ SCH (20:37)
--- NOTE | 2018-08-14 23:18 | PN ---
PROGRESS NOTE DATE OF SERVICE: 08/14/2018 PRESENTING COMPLAINT: Low hemoglobin. INTERVAL HISTORY: This patient was admitted with anemia, given a unit of blood, and also fracture of the right ankle. Orthopedics is planning to do conservative management at this point. The patient earlier today became more short of breath. After getting morphine for his pain, he became more drowsy. There was a concern about patient aspirating. They did a chest x-ray that did confirm some aspiration pneumonia. Did start the patient on IV Zosyn, ordered bronchodilators. The patient is more tired. REVIEW OF SYSTEMS: Could not be done, as patient was rather tired, lethargic. CURRENT MEDICATIONS: Reviewed. They include morphine. PHYSICAL EXAMINATION: Temperature 97.9, pulse 80, respiration 16, blood pressure 172/75, pulse ox 97% on 2 L. GENERAL APPEARANCE: Lying in bed, more lethargic but arousable. EYES: Pupils equal. Conjunctivae normal. HEENT: External appearance of nose and ears normal. Oral cavity a bit dry. NECK: JVD unable to assess. Mass not palpable. RESPIRATORY: Effort increased. LUNGS: Decreased breath sounds. Prolonged expiration. Some wheezing. CARDIOVASCULAR: First and second sounds normal. No edema. NEUROLOGICAL: Patient is chronically weak on the right side. Speech is slow, but the patient is more lethargic today. INVESTIGATIONS: Chest x-ray showing new infiltrate. ASSESSMENT: 1. Aspiration pneumonia, right lower base, from altered mental status. 2. Acute metabolic encephalopathy secondary to morphine. 3. Acute normocytic anemia; strongly suspect gastrointestinal bleed in a patient who was on antiplatelet agents. 4. Right ankle fracture with medial malleolus and fibula secondary to fall, to be managed conservatively as per Orthopedics. 5. Acute ischemic stroke in the left middle cerebral artery in a right-handed patient about 10 days ago with residual right-sided weakness and dysarthria. 6. Acute dysarthria from above. 7. Coronary artery disease with prior history of coronary artery bypass. 8. Chronic obstructive pulmonary disease in an ex-smoker. 9. Multi-infarct dementia causing some cognitive impairment, moderate. 10.Diabetes mellitus, type 2, chronically on insulin. 11.Gastroesophageal reflux disease. 12.Hyperlipidemia. 13.Hypertensive urgency, present on admission. 14.Primary osteoarthritis. 15.Chronic kidney disease, stage III, from nephrosclerosis. 16.Chronic low back pain from sciatica. 17.Chronic urine incontinence. 18.Generalized anxiety not otherwise specified. PLAN: Patient was put on frequent breathing treatments, inhaled steroids, one dose of IV steroid. Additionally, aspiration precautions were put in place. Earlier care was discussed with the daughter at the bedside. Questions were answered. Orthopedics also ordered a boot for the right lower extremity and 50% weightbearing. They will be doing an EGD and colonoscopy on Sunday. MMODL / IJN: [id number] /
[2018-08-15] MEDS: IPRATROPIUM-ALBUTEROL 3 ML NEB INHALATION SCH ×7 (00:37→23:30)
[2018-08-15] MEDS: PIPERACILLIN-TAZOBACTAM 3.375 GM in DEXTROSE/WATER 1 50ML.BAG IVPB SCH ×3 (04:23→21:38)
[2018-08-15] MEDS: clonazePAM 0.5 MG TAB PO SCH ×3 (06:19→21:39)
[2018-08-15 07:29] LABS: Glucose,Whole Blood 77 mg/dL (75-99)
[2018-08-15] MEDS: INSULIN ASPART 100 UNIT/ML 1 ML 10 ML VIAL SQ SCH ×4 (09:13→22:31)
[2018-08-15] MEDS: MORPHINE SULFATE 2 MG/ML SYRINGE IVP PRN ×3 (09:14→21:36)
[2018-08-15] MEDS: cloNIDine HCL 0.1 MG TAB PO SCH ×2 (09:26→21:39)
[2018-08-15] MEDS: FUROSEMIDE 20 MG TAB PO SCH (09:26)
[2018-08-15] MEDS: ALLOPURINOL 100 MG TAB PO SCH (09:26)
[2018-08-15] MEDS: ONDANSETRON 4 MG TAB PO SCH ×3 (09:26→17:59)
[2018-08-15] MEDS: PARoxetine 10 MG TAB PO SCH (09:27)
[2018-08-15] MEDS: SENNOSIDES-DOCUSATE SODIUM 1 EACH TAB PO SCH (09:27)
[2018-08-15] MEDS: PANTOPRAZOLE 40 MG/10 ML VIAL IVP SCH (09:27)
[2018-08-15] MEDS: POLYETHYLENE GLYCOL 3350 17 GM POWD.PACK PO SCH (09:27)
--- NOTE | 2018-08-15 10:21 | P.PN ---
Subjective Progress Note Date: 08/15/18 This is a 73 year-old female who is admitted after a fall and also for evaluation of anemia. Orthopedics is consulted due to right ankle fracture. Patient received a boot yesterday and, according to nursing staff, has been uncomfortable. Patient states that her pain is mostly in the right ankle, but also in the hip. Patient denies any numbness, weakness or tingling, fever/chills , shortness of breath or chest pain. Objective - Vital Signs Vital signs: Vital Signs Temp 97.9 F 08/15/18 05:00 Pulse 76 08/15/18 07:26 Resp 20 08/15/18 05:00 BP 175/74 08/15/18 05:00 Pulse Ox 96 08/15/18 05:00 Intake & Output 08/14/18 08/15/18 08/15/18 18:59 06:59 18:59 Intake Total 300 Balance 300 Intake: Oral 300 Other: Voiding Method Bedpan Bedpan Bedpan # Voids 5 4 - Exam On exam patient is lying in bed in no acute distress. Boot is in place. Right lower extremity is warm and well perfused. There is pain with log roll of the right lower extremity. Capillary refill is normal at <2 seconds. Neurovascular status and circulatory status are intact. - Labs CBC & Chem 7: 08/14/18 07:26 08/14/18 07:26 Labs: Abnormal Lab Results - Last 24 Hours (Table) 08/13/18 08/14/18 08/14/18 Range/Units 11:01 07:26 11:11 POC Glucose (mg/dL) 162 H (75-99) mg/dL Hemoglobin A1c 6.7 H (4.0-6.0) % Iron 22 L (50-170) ug/dL Iron Saturation 7.24 L (12.00-45.00) 08/14/18 08/14/18 Range/Units 17:02 20:25 POC Glucose (mg/dL) 181 H 107 H (75-99) mg/dL Hemoglobin A1c (4.0-6.0) % Iron (50-170) ug/dL Iron Saturation (12.00-45.00) Microbiology - Last 24 Hours (Table) 08/13/18 11:01 Urine Culture - Preliminary Urine,Voided Gram Neg Bacilli Assessment and Plan (1) Anemia Current Visit: Yes Status: Acute Code(s): D64.9 - ANEMIA, UNSPECIFIED SNOMED Code(s): 735330927 (2) Fall Current Visit: Yes Status: Acute Code(s): W19.XXXA - UNSPECIFIED FALL, INITIAL ENCOUNTER SNOMED Code(s): 1277696 (3) GI bleed Current Visit: Yes Status: Acute Code(s): K92.2 - GASTROINTESTINAL HEMORRHAGE, UNSPECIFIED SNOMED Code(s): 19709000 (4) Maisonneuve fracture Current Visit: Yes Status: Acute Code(s): S82.863A - DISPLACED MAISONNEUVE' S FRACTURE OF UNSP LEG, INIT SNOMED Code(s): 00983830 Plan: 1. Maintain boot to right lower extremity. 2. Patient may be 50% weightbearing to the right lower extremity using a walker. 3. Continue pain control. 4. Rest ice and elevate the right lower extremity. 5. X-rays of the right hip and pelvis are pending. 6. No surgical intervention planned. Will continue to follow.
--- NOTE | 2018-08-15 11:24 | XR ---
EXAMINATION TYPE: XR Hip RT and AP Pelvis DATE OF EXAM: 08/15/2018 COMPARISON: NONE HISTORY: Right hip pain TECHNIQUE: A single AP view of the pelvis is obtained. Two views of the right hip are obtained. FINDINGS: There is postsurgical change overlying the lower lumbar spine. Arthropathy of the hips. Va scular calcifications noted. Arthropathy of the SI joints greater on the left. IMPRESSION: 1. Arthropathy of the hip.
[2018-08-15 11:33] LABS: Glucose,Whole Blood 85 mg/dL (75-99)
[2018-08-15] MEDS ORDERED: PEG 3350-NA SULF,BICARB,CL/KCL 4,000 ML BOTTLE PO ONE (11:40)
[2018-08-15] MEDS ORDERED: BISACODYL 5 MG TABLET.DR PO STA (11:40)
--- NOTE | 2018-08-15 11:41 | P.PN ---
Subjective Progress Note Date: 08/15/18 Principal diagnosis: Anemia No bleeding. No bowel movements despite laxatives stool softeners. EGD colonoscopy currently scheduled for tomorrow. Iron indices reviewed consistent with iron deficiency. FOBT pending. Objective - Vital Signs Vital signs: Vital Signs Temp 97.9 F 08/15/18 05:00 Pulse 76 08/15/18 07:26 Resp 20 08/15/18 05:00 BP 175/74 08/15/18 05:00 Pulse Ox 96 08/15/18 05:00 Intake & Output 08/14/18 08/15/18 08/15/18 18:59 06:59 18:59 Intake Total 300 Balance 300 Intake: Oral 300 Other: Voiding Method Bedpan Bedpan Bedpan # Voids 5 4 2 - Exam General appearance: The patient is alert, oriented, in no acute distress. HET: Head is normocephalic and atraumatic. Pupils are equal and reactive. Oropharynx is clear without lesions. Neck: Supple without lymphadenopathy. Trachea midline. Heart: S1 S2. Regular rate and rhythm. Lungs: No crackles or wheezes are heard. Abdomen: Soft, nontender, nondistended with bowel sounds. No peritoneal signs. No palpable organomegaly or masses. Extremities: Right lower extremity splint in place. Normal skin color and turgor. No cyanosis, rash, ulceration, clubbing, or edema. Radial and pedal pulses are 2/4 bilaterally. Neurological: No focal deficits. Strength and sensation are grossly intact. - Labs CBC & Chem 7: 08/14/18 07:26 08/14/18 07:26 Labs: Abnormal Lab Results - Last 24 Hours (Table) 08/13/18 08/14/18 08/14/18 Range/Units 11:01 07:26 17:02 POC Glucose (mg/dL) 181 H (75-99) mg/dL Hemoglobin A1c 6.7 H (4.0-6.0) % Iron 22 L (50-170) ug/dL Iron Saturation 7.24 L (12.00-45.00) 08/14/18 Range/Units 20:25 POC Glucose (mg/dL) 107 H (75-99) mg/dL Hemoglobin A1c (4.0-6.0) % Iron (50-170) ug/dL Iron Saturation (12.00-45.00) Microbiology - Last 24 Hours (Table) 08/13/18 11:01 Urine Culture - Preliminary Urine,Voided Gram Neg Bacilli Assessment and Plan (1) Symptomatic anemia Narrative/Plan: 73-year-old female admitted with acute symptomatic normocytic hypochromic iron deficiency anemia possible acute blood loss anemia with right lower extremity nonsurgical tibia-fibula fracture underlying chronic kidney disease stage III. Patient denies overt bleeding such as hematemesis hematochezia melena however occult GI loss cannot be entirely excluded. Current Visit: Yes Status: Acute Code(s): D64.9 - ANEMIA, UNSPECIFIED SNOMED Code(s): 708717468 (2) Chronic kidney disease Current Visit: Yes Status: Acute Code(s): N18.9 - CHRONIC KIDNEY DISEASE, UNSPECIFIED SNOMED Code(s): 412002335 (3) Maisonneuve fracture Current Visit: Yes Status: Acute Code(s): S82.863A - DISPLACED MAISONNEUVE' S FRACTURE OF UNSP LEG, INIT SNOMED Code(s): 01817239 Plan: 1. CBC monitoring. Liquid diet. Protonix 40 mg daily. We'll proceed with EGD colonoscopy evaluation tomorrow pending successful bowel prep. Will start GoLYTELY this morning and follow-up this evening. 2. Iron indices reviewed. 3. FOBT requested. Assessment and plan a care discussed with Dr. Treviño
[2018-08-15] MEDS: CYANOCOBALAMIN-FA-PYRIDOXINE 1 EACH TAB PO SCH (13:06)
[2018-08-15] MEDS: CALCITRIOL 0.25 MCG CAP PO SCH (13:06)
[2018-08-15] MEDS: BUDESONIDE 1 MG/2 ML NEBU INHALATION SCH ×2 (13:44→21:49)
--- NOTE | 2018-08-15 16:48 | US ---
EXAMINATION TYPE: US venous doppler duplex UE RT DATE OF EXAM: 08/15/2018 COMPARISON: NONE CLINICAL HISTORY: arm swelling r/o dvt. Patient fell 2 days ago. Swelling. No redness. Was on bloo d thinners, off today. SIDE PERFORMED: Right Edema channels are present at the level of the right wrist. Right Arm: Negative for DVT. Superficial edema seen at wrist Visualized portions of the internal jugular vein, subclavian vein, axillary vein, brachial veins, bas ilic vein, radial and ulnar veins show normal compressibility. IMPRESSION: No evident deep venous thrombosis within the visualized veins of the right upper extremity.
[2018-08-15 16:55] LABS: Glucose,Whole Blood 95 mg/dL (75-99)
[2018-08-15 20:50] LABS: Glucose,Whole Blood 89 mg/dL (75-99)
[2018-08-15] MEDS: ATORVASTATIN 40 MG TAB PO SCH (21:38)
[2018-08-15 23:24] LABS: Glucose,Whole Blood 148 mg/dL (75-99)
[2018-08-15] MEDS: INSULIN DETEMIR 100 UNIT/ML 10 ML VIAL SQ SCH (23:39)
--- NOTE | 2018-08-15 23:46 | PN ---
PROGRESS NOTE DATE OF SERVICE: 08/15/2018 PRESENTING COMPLAINT: Low hemoglobin. INTERVAL HISTORY: This patient presented with anemia felt to be GI bleed and a fractured right ankle. Patient has got a boot on the right ankle and for conservative management. The patient also had tube feedings, as the patient aspiration pneumonia and also effect of morphine, which has been cut back. More awake today. Breathing is much better. Awaiting endoscopy tomorrow. REVIEW OF SYSTEMS: Done for constitutional, cardiovascular, GI, pulmonary, musculoskeletal; relevant findings as above. CURRENT MEDICATIONS: Reviewed. They include IV Zosyn. PHYSICAL EXAMINATION: Temperature 98.6, pulse 83, respiration 18, blood pressure 157/69, pulse ox 91% on room air. GENERAL APPEARANCE: Lying in bed, more comfortable. EYES: Pupils equal. Conjunctivae normal. HEENT: External appearance of nose and ears normal. Oral cavity dry. NECK: JVD unable to assess. Mass not palpable. RESPIRATORY: Effort increased. LUNGS: Improved air entry. Decreased breath sounds. Less wheezing. CARDIOVASCULAR: First and second sounds normal. No edema. MUSCULOSKELETAL: Brace on the right foot. NEUROLOGICAL: Patient is chronically weak on the right side. Speech is slow. INVESTIGATIONS: Potassium is 3.1. ASSESSMENT: 1. Aspiration pneumonia, right lobe base, from altered mental status. 2. Acute metabolic encephalopathy secondary to morphine, improved. 3. Acute anemia; strongly suspect gastrointestinal bleed in a patient who has been on antiplatelet agents. 4. Right ankle fracture with medial malleolus and fibula secondary to fall, to be managed conservatively per Orthopedics. 5. Acute ischemic stroke in the left middle cerebral artery in a right-handed patient on her last admission with residual right-sided weakness and dysarthria. 6. Acute dysarthria from above. 7. Coronary artery disease with prior history of coronary artery bypass. 8. Chronic obstructive pulmonary disease in an ex-smoker. 9. Multi-infarct dementia causing moderate cognitive impairment. 10.Diabetes mellitus, type 2, chronically on insulin. 11.Gastroesophageal reflux disease. 12.Hyperlipidemia. 13.Hypertensive urgency on presentation. 14.Primary osteoarthritis. 15.Chronic kidney disease, stage III, from nephrosclerosis. 16.Chronic low back pain from sciatica. 17.Chronic urine incontinence. 18.Generalized anxiety disorder not otherwise specified. PLAN: Continue current medication and treatment plan. Awaiting endoscopy tomorrow. Care was discussed with the patient. No family present. Repeat labs in the morning. MMODL / IJN: [id number] /
[2018-08-16] MEDS: IPRATROPIUM-ALBUTEROL 3 ML NEB INHALATION SCH ×6 (02:47→23:56)
[2018-08-16] MEDS: PIPERACILLIN-TAZOBACTAM 3.375 GM in DEXTROSE/WATER 1 50ML.BAG IVPB SCH ×3 (04:25→19:51)
[2018-08-16] MEDS: clonazePAM 0.5 MG TAB PO SCH ×3 (04:28→22:04)
[2018-08-16 07:05] LABS: Glucose,Whole Blood 75 mg/dL (75-99)
[2018-08-16] MEDS: INSULIN ASPART 100 UNIT/ML 1 ML 10 ML VIAL SQ SCH ×4 (07:23→22:05)
[2018-08-16] MEDS: BUDESONIDE 1 MG/2 ML NEBU INHALATION SCH ×2 (07:26→19:23)
[2018-08-16] MEDS: ONDANSETRON 4 MG TAB PO SCH ×3 (07:37→18:04)
[2018-08-16 07:46] LABS: Anisocytosis Slight; HCT 25.2 % (34.0-46.0); HGB 7.3 gm/dL (11.4-16.0); Hypochromasia Marked; MCH 26.3 pg (25.0-35.0); MCV 90.5 fL (80.0-100.0); Mean Platelet Volume 7.2; Platelet Count 274 k/uL (150-450); Poikilocytosis Moderate; RBC 2.79 m/uL (3.80-5.40); RDW 16.5 % (11.5-15.5); WBC 11.5 k/uL (3.8-10.6)
[2018-08-16] MEDS: SENNOSIDES-DOCUSATE SODIUM 1 EACH TAB PO SCH (07:51)
[2018-08-16 07:57] LABS: Calcium 7.3 mg/dL (8.4-10.2); Magnesium 2.3 mg/dL (1.6-2.3); Potassium 3.1 mmol/L (3.5-5.1)
[2018-08-16] MEDS: cloNIDine HCL 0.1 MG TAB PO SCH ×2 (08:02→22:05)
[2018-08-16] MEDS: PANTOPRAZOLE 40 MG/10 ML VIAL IVP SCH (08:03)
[2018-08-16] MEDS: FUROSEMIDE 20 MG TAB PO SCH (08:03)
[2018-08-16] MEDS ORDERED: POTASSIUM CHLORIDE ER 20 MEQ TAB.ER PO STA (08:43)
[2018-08-16 10:42] LABS: Basophils # (M) 0.12 k/uL (0-0.2); Eosinophils # (M) 0.23 k/uL (0-0.7); Lymphocytes # (M) 0.92 k/uL (1.0-4.8); Monocytes # (M) 0.35 k/uL (0-1.0); Neutrophils # (M) 9.89 k/uL (1.3-7.7); Neutrophils % (M) 86 %; Nucleated Red Blood Cells 0 /100 WBC (0-0); Total Cells Counted 100
[2018-08-16 10:43] LABS: Toxic Granulation Present
--- NOTE | 2018-08-16 10:55 | P.PN ---
Subjective Progress Note Date: 08/16/18 This is a 73 year-old female who is admitted after a fall and also for evaluation of anemia. Orthopedics is consulted due to right ankle fracture. Patient states that her pain is well-controlled today. Patient denies any new complaints today. Patient denies any numbness, weakness or tingling, fever/ chills, shortness of breath or chest pain. Objective - Vital Signs Vital signs: Vital Signs Temp 97.9 F 08/16/18 05:00 Pulse 93 08/16/18 07:26 Resp 16 08/16/18 07:26 BP 180/70 08/16/18 05:00 Pulse Ox 98 08/16/18 07:26 Intake & Output 08/15/18 08/16/18 08/16/18 18:59 06:59 18:59 Intake Total 1000 750 Output Total 100 Balance 900 750 Intake: Intake, IV Titration 50 Amount Piperacillin-Tazobactam 3 50 .375 gm In Dextrose/Water 1 50ml.bag @ 12.5 mls/hr IVPB Q8H [facility] Rx#: [id number] Oral 1000 700 Output: Stool 100 Other: Voiding Method Bedpan Bedpan Bedpan Diaper Diaper Incontinent Incontinent # Voids 2 1 # Bowel Movements 5 1 - Exam On exam patient is lying in bed in no acute distress. Boot is in place. Right lower extremity is warm and well perfused. Capillary refill is normal at <2 seconds. Neurovascular status and circulatory status are intact. - Labs CBC & Chem 7: 08/16/18 06:52 08/16/18 07:14 Labs: Abnormal Lab Results - Last 24 Hours (Table) 08/15/18 08/15/18 08/16/18 Range/Units 17:05 23:23 06:52 WBC 11.5 H (3.8-10.6) k/uL RBC 2.79 L (3.80-5.40) m/uL Hgb 7.3 L (11.4-16.0) gm/dL Hct 25.2 L (34.0-46.0) % MCHC 29.0 L (31.0-37.0) g/dL RDW 16.5 H (11.5-15.5) % Neutrophils # (Manual) 9.89 H (1.3-7.7) k/uL Lymphocytes # (Manual) 0.92 L (1.0-4.8) k/uL Sodium (137-145) mmol/L Potassium 3.1 L (3.5-5.1) mmol/L Chloride (98-107) mmol/L Carbon Dioxide (22-30) mmol/L BUN (7-17) mg/dL Creatinine (0.52-1.04) mg/dL Glucose (74-99) mg/dL POC Glucose (mg/dL) 148 H (75-99) mg/dL Calcium (8.4-10.2) mg/dL 08/16/18 Range/Units 07:14 WBC (3.8-10.6) k/uL RBC (3.80-5.40) m/uL Hgb (11.4-16.0) gm/dL Hct (34.0-46.0) % MCHC (31.0-37.0) g/dL RDW (11.5-15.5) % Neutrophils # (Manual) (1.3-7.7) k/uL Lymphocytes # (Manual) (1.0-4.8) k/uL Sodium 136 L (137-145) mmol/L Potassium 3.1 L (3.5-5.1) mmol/L Chloride 92 L (98-107) mmol/L Carbon Dioxide 35 H (22-30) mmol/L BUN 19 H (7-17) mg/dL Creatinine 1.35 H (0.52-1.04) mg/dL Glucose 61 L (74-99) mg/dL POC Glucose (mg/dL) (75-99) mg/dL Calcium 7.3 L (8.4-10.2) mg/dL Microbiology - Last 24 Hours (Table) 08/13/18 11:01 Urine Culture - Final Urine,Voided Escherichia coli Assessment and Plan (1) Anemia Current Visit: Yes Status: Acute Code(s): D64.9 - ANEMIA, UNSPECIFIED SNOMED Code(s): 272676237 (2) Fall Current Visit: Yes Status: Acute Code(s): W19.XXXA - UNSPECIFIED FALL, INITIAL ENCOUNTER SNOMED Code(s): 0255189 (3) GI bleed Current Visit: Yes Status: Acute Code(s): K92.2 - GASTROINTESTINAL HEMORRHAGE, UNSPECIFIED SNOMED Code(s): 55733058 (4) Maisonneuve fracture Current Visit: Yes Status: Acute Code(s): S82.863A - DISPLACED MAISONNEUVE' S FRACTURE OF UNSP LEG, INIT SNOMED Code(s): 47504392 Plan: 1. Maintain boot to right lower extremity. 2. Patient may be 50% weightbearing to the right lower extremity using a walker. 3. Continue pain control. 4. Rest ice and elevate the right lower extremity. 5. No surgical intervention planned. Will continue to follow.
[2018-08-16] MEDS: CYANOCOBALAMIN-FA-PYRIDOXINE 1 EACH TAB PO SCH (11:09)
[2018-08-16 11:32] LABS: Glucose,Whole Blood 61 mg/dL (75-99)
[2018-08-16] MEDS ORDERED: DEXTROSE 50%-WATER 50 ML SYRINGE IVP ONE (11:38)
[2018-08-16] MEDS ORDERED: DEXTROSE 50%-WATER 50 ML SYRINGE IVP STA ×2 (11:41)
[2018-08-16] MEDS ORDERED: PROPOFOL 10 MG/ML 20 ML VIAL IV ONE (12:16)
[2018-08-16] MEDS ORDERED: LIDOCAINE 1% INJ 10MG/ML (20 ML MDV) ONE (12:16)
[2018-08-16 12:20] LABS: Glucose,Whole Blood 136 mg/dL (75-99)
[2018-08-16] MEDS ORDERED: SODIUM CHLORIDE 0.9% 1,000 ML IV ONE (12:30)
[2018-08-16] MEDS ORDERED: SIMETHICONE 40 MG/0.6 ML DROPS 2,000 MG/30 ML BOTTLE MISCELLANE ONE (13:12)
[2018-08-16 13:31] LABS: Glucose,Whole Blood 106 mg/dL (75-99)
--- NOTE | 2018-08-16 15:05 | P.PCN ---
Date of Procedure: 08/16/18 Description of Procedure: Brief history: Patient is a pleasant 73-year-old female who presents after recent tib-fib fracture of her left lower extremity with symptomatic anemia without any signs or symptoms of overt GI bleeding. The patient does have a known history of CAD and a remote history of colonoscopic exam. Endoscopy is being performed for further evaluation. Procedure performed: Esophagogastroduodenoscopy with biopsy Colonoscopy with polypectomy and clip placement Estimated blood loss: Minimal. Preoperative diagnosis: Anesthesia: MAC Procedure: After informed consent was obtained from the patient was brought into the endoscopy unit and IV sedation was administered by anesthesia under continuous monitoring. Initially upper endoscopy was done. The Olympus GF 190 video endoscope was inserted inserted into the mouth and esophagus intubated without any difficulty and was gradually advanced into the stomach and duodenum and carefully examined. The bulb and second part of the duodenum appeared grossly normal with biopsies taken. The scope was then withdrawn into the stomach adequately insufflated with air and upon careful examination there was a large 2.5 cm pedunculated pain mass located on the greater curvature of the stomach. The mass. Irritated with erythema noted, multiple biopsies were taken. There were also multiple thickened polypoid areas in the antrum which were biopsied. Gastritis was noted in the body and biopsied. The scope was then withdrawn into the esophagus. The GE junction was located at 40 cm to the incisors. It appeared regular with no erythema erosions or ulcerations. Rest of the esophagus appeared normal. Patient tolerated the procedure well. At this time the patient continued to remain sedation. Initial digital rectal examination was normal. Olympus CF 190 video colonoscope was then inserted into the rectum and gradually advanced to the cecum without any difficulty. Careful examination was performed as the scope was gradually being withdrawn. The prep was poor, with a large amount of liquid and semi-solid stool noted throughout the colon. Copious lavage was attempted to clear the stool however this was unsuccessful. The cecum, ascending colon, transverse colon, descending colon, sigmoid colon and rectum appeared grossly normal. One large 1.5 cm pedunculated polyp was noted in the sigmoid colon which was removed with hot snare and a prostatic clip was placed. A 8 mm sessile polyp was noted in the transverse colon and removed with cold snare. A 3 mm sessile polyp was noted in the descending colon and removed with cold forceps. Retroflexion was performed in the rectum and no lesions were noted and nonbleeding internal hemorrhoids were seen. Patient tolerated the procedure well. Impression: 1. Large pedunculated erythematous gastric mass, biopsied. 2. Gastritis, biopsied. 3. No active bleeding on upper endoscopy. 4. Poor colon prep. 5. Pedunculated sigmoid polyp removed with hot snare, clip placed. 6. Sessile transverse polyp removed with cold snare. 7. Sessile descending colon polyp removed with cold forceps. 8. Internal hemorrhoids. Recommendations: Findings of this examination were discussed with the patient. Continue Protonix therapy. Await pathology from biopsies and polypectomy. Monitor hemoglobin and hematocrit and transfuse as needed. Okay for full liquid diet advance as tolerated. Follow up with GI in 1-2 weeks.
[2018-08-16] MEDS: ALLOPURINOL 100 MG TAB PO SCH (17:27)
[2018-08-16] MEDS: PARoxetine 10 MG TAB PO SCH (17:27)
[2018-08-16 17:42] LABS: Glucose,Whole Blood 87 mg/dL (75-99)
[2018-08-16] MEDS: MORPHINE SULFATE 2 MG/ML SYRINGE IVP PRN (19:33)
[2018-08-16 20:23] LABS: Glucose,Whole Blood 155 mg/dL (75-99)
[2018-08-16] MEDS: ATORVASTATIN 40 MG TAB PO SCH (22:04)
[2018-08-16] MEDS: INSULIN DETEMIR 100 UNIT/ML 10 ML VIAL SQ SCH (22:06)
--- NOTE | 2018-08-16 22:23 | PN ---
PROGRESS NOTE DATE OF SERVICE: 08/16/2018 PRESENTING COMPLAINT: Low hemoglobin. INTERVAL HISTORY: This patient presented with anemia; also had a fractured right ankle that is being managed conservatively with a boot. Did undergo EGD today, found to have gastritis and a large gastric polyp. She also had colonoscopy, which had poor preparation. Patient is also treated for aspiration pneumonia and COPD exacerbation. Breathing is better, lying in bed. REVIEW OF SYSTEMS: Done for constitutional, cardiovascular, GI, pulmonary; relevant findings as above. CURRENT MEDICATIONS: Reviewed. They include IV Zosyn. PHYSICAL EXAMINATION: Temperature 98, pulse 80, respiration 13, blood pressure 177/79, pulse ox 97% on 2 L. GENERAL APPEARANCE: Lying in bed, awake, comfortable. EYES: Pupils equal. Conjunctivae normal. HEENT: External appearance of nose and ears normal. Oral cavity dry. NECK: JVD unable to assess. Mass not palpable. RESPIRATORY: Effort increased. LUNGS: Decreased breath sounds. Improved wheezing. CARDIOVASCULAR: First and second sounds normal. No edema. ABDOMEN: Soft, nontender. Liver and spleen not palpable. MUSCULOSKELETAL: Brace on the right leg. NEUROLOGICAL: Patient is chronically weak on the right side. Speech is slow. INVESTIGATIONS: White count 11.5, hemoglobin 7.3, potassium 3.1, BUN 19, creatinine 1.35. EGD and colonoscopy results are noted. ASSESSMENT: 1. Aspiration pneumonia, right lobe base, from altered mental status with clinical response. 2. Acute metabolic encephalopathy secondary to morphine, improved. 3. Acute anemia, felt to be gastrointestinal bleed from gastritis from antiplatelet agents. 4. Right ankle fracture with medial malleolus and fibula secondary to fall, to be managed conservatively. 5. Acute ischemic stroke in the left middle cerebral artery in a right-handed patient on the last admission with residual right-sided weakness and dysarthria. 6. Acute dysarthria from above. 7. Coronary artery disease with prior history of coronary artery bypass. 8. Chronic obstructive pulmonary disease in an ex-smoker. 9. Multi-infarct dementia causing moderate cognitive impairment. 10.Diabetes mellitus, type 2, chronically on insulin. 11.Gastroesophageal reflux disease. 12.Hyperlipidemia. 13.Hypertensive urgency on presentation. 14.Primary osteoarthritis. 15.Chronic kidney disease, stage III, from nephrosclerosis. 16.Chronic low back pain from sciatica. 17.Chronic urine incontinence. 18.Generalized anxiety disorder not otherwise specified. PLAN: Care was discussed with the patient's daughter in detail. Questions were answered. Patient will be switched over to p.o. antibiotic in the morning. Patient is currently off antiplatelet agents, given the of the large polyp removed from the stomach, will hold off any antiplatelet agents for at least 48 hours. Patient is also on PPI. Will switch that to p.o. MMCORI / ORLINN: [id number] /
[2018-08-17] MEDS: PANTOPRAZOLE 40 MG TABLET PO SCH ×3 (00:27→17:59)
[2018-08-17] MEDS: IPRATROPIUM-ALBUTEROL 3 ML NEB INHALATION SCH ×5 (04:01→19:34)
[2018-08-17] MEDS: clonazePAM 0.5 MG TAB PO SCH ×3 (05:30→22:11)
[2018-08-17 07:40] LABS: Glucose,Whole Blood 77 mg/dL (75-99)
[2018-08-17] MEDS: INSULIN ASPART 100 UNIT/ML 1 ML 10 ML VIAL SQ SCH ×4 (07:44→20:40)
[2018-08-17 08:23] LABS: Calcium 7.5 mg/dL (8.4-10.2); Potassium 3.2 mmol/L (3.5-5.1)
[2018-08-17 08:46] LABS: Anisocytosis Slight; HCT 22.6 % (34.0-46.0); HGB 7.4 gm/dL (11.4-16.0); Hypochromasia Marked; MCHC 32.8 g/dL (31.0-37.0); Mean Platelet Volume 7.3; Platelet Count 224 k/uL (150-450); Poikilocytosis Moderate; RBC 2.65 m/uL (3.80-5.40); RDW 16.3 % (11.5-15.5); WBC 9.2 k/uL (3.8-10.6)
[2018-08-17 08:48] LABS: MCV 85.3 fL (80.0-100.0)
[2018-08-17] MEDS: FUROSEMIDE 20 MG TAB PO SCH (09:14)
[2018-08-17] MEDS: AMOXIC-POT CLAV 875-125MG 1 EACH TAB PO SCH ×2 (09:14→20:25)
[2018-08-17] MEDS: ONDANSETRON 4 MG TAB PO SCH ×3 (09:14→17:59)
[2018-08-17] MEDS: cloNIDine HCL 0.1 MG TAB PO SCH ×2 (09:14→22:12)
[2018-08-17] MEDS: ALLOPURINOL 100 MG TAB PO SCH (09:14)
[2018-08-17] MEDS: SENNOSIDES-DOCUSATE SODIUM 1 EACH TAB PO SCH (09:14)
[2018-08-17] MEDS: PARoxetine 10 MG TAB PO SCH (09:14)
[2018-08-17 09:19] LABS: Band Neutrophils % 1 %; Eosinophils # (M) 0.09 k/uL (0-0.7); Lymphocytes # (M) 0.92 k/uL (1.0-4.8); Monocytes # (M) 0.46 k/uL (0-1.0); Neutrophils % (M) 83 %; Nucleated Red Blood Cells 0 /100 WBC (0-0); Polychromasia Present; Total Cells Counted 100
[2018-08-17] MEDS: BUDESONIDE 1 MG/2 ML NEBU INHALATION SCH ×2 (09:30→19:34)
--- NOTE | 2018-08-17 10:28 | XR ---
EXAMINATION TYPE: XR chest 1V portable DATE OF EXAM: 08/17/2018 HISTORY: SOB. REFERENCE: Previous study dated 08/14/2018. FINDINGS: There has been a midline sternotomy. Heart size upper limits of normal. There is vascular congestion and interstitial change. There contin ues be bibasilar airspace disease. I suspect small, bilateral effusions. IMPRESSION: 1. CONTINUING, BILATERAL AIRSPACE DISEASE AND SMALL EFFUSIONS. 2. SUPERIMPOSED CHANGES OF CONGESTIVE HEART FAILURE.
--- NOTE | 2018-08-17 10:54 | PN ---
PROGRESS NOTE DATE OF DICTATION: 08/17/2018 Patient is a 73-year-old pleasant white female admitted to the hospital with severe symptomatic anemia, GI bleed. She underwent EGD and colonoscopy by Dr. Treviño yesterday. The upper endoscopy revealed a 3 cm gastric polyp that was biopsied. Colonoscopy revealed several polyps that were removed by snare polypectomy. The patient is somewhat sleepy this morning. She denies any nausea, vomiting. No further episodes of bleeding. PHYSICAL EXAMINATION: Appears comfortable, in no apparent distress. VITAL SIGNS: Stable. Blood pressure 175/74, pulse rate 91, temperature 98.5. HEENT EXAMINATION: Unremarkable. Conjunctivae pink. Sclerae anicteric. Oral cavity no lesions. NECK: No JVD or lymph node enlargement. CHEST: Clear to auscultation. HEART: Regular rate and rhythm. ABDOMEN: Soft. Bowel sounds are positive. No organomegaly. EXTREMITIES: No pedal edema. SKIN: No rashes. NEUROLOGIC: Awake but quite sleepy. LABS FROM TODAY: WBC 9.2, hemoglobin 7.4. Platelets are normal. Basic metabolic panel is normal. BUN is 18, creatinine 1.31. IMPRESSION: The patient was admitted to the hospital with severe symptomatic anemia and hemoglobin of 6.3, requiring a unit of blood transfusion. Since then her hemoglobin has been stable. She underwent an upper endoscopy as well as colonoscopy by Dr. Treviño yesterday that showed evidence of a gastric polyp and multiple colon polyps that were removed. Gastric polyp biopsies are still pending. No further bleeding. Hemoglobin is stable at 7.4. She received one unit of blood transfusion during this hospitalization. RECOMMENDATIONS: 1. Advance diet as tolerated. 2. Await biopsy results. 3. Repeat CBC in the morning. We will follow the patient closely during her hospital stay. Thank you for this consultation. MMODL / IJN: [id number] /
[2018-08-17 11:18] LABS: Glucose,Whole Blood 71 mg/dL (75-99)
--- NOTE | 2018-08-17 12:53 | P.PN ---
Progress Note - Text Progress Note Date: 08/17/18 Patient is a pleasant 73-year-old female who is seen bedside for follow evaluation regards to her right medial malleolus fracture and proximal fibular fracture. She continues keep the boot over the right lower extremity intact. Her pain has been well-controlled with right lower extremity. She has no new complaints regards to her right lower extremity. She is eating and voiding without difficulty. She continues to be seen in exam by medicine. Physical Exam: Patient is awake, alert, and oriented 3 Vital signs stable Good chest excursion with deep inspiration and expiration Abdomen soft nontender Boot over the right extremity is clean, dry, and intact. Patient is able to wiggle toes of the right foot No pain on palpation over the right knee or right thigh Active full range of motion of the left lower extremity difficulty Assessment: Right Maisonneuve fracture Status post fall Right lower extremity leg pain Anemia Plan: 1. Patient will continue B boot intact of the right lower extremity. She may weight-bear on the right lower extremity 50% weight. From orthopedic standpoint , patient is clear for discharge. She'll plan to follow with Dr. Rashi James in 10 days for further treatment and evaluation. 2. Patient will continue to be followed by medicine for other medical diagnoses including anemia 3. Patient will follow up with Dr. Rashi James at [facility] in 10 days for further treatment and evaluation in the outpatient setting
[2018-08-17] MEDS: CALCITRIOL 0.25 MCG CAP PO SCH (12:54)
[2018-08-17] MEDS: CYANOCOBALAMIN-FA-PYRIDOXINE 1 EACH TAB PO SCH (12:54)
[2018-08-17] MEDS: ACETAMINOPHEN TAB 500 MG TAB PO PRN (12:56)
[2018-08-17 17:10] LABS: Glucose,Whole Blood 167 mg/dL (75-99)
--- NOTE | 2018-08-17 18:30 | PN ---
PROGRESS NOTE DATE OF SERVICE: 08/17/2018. PRESENTING COMPLAINT: Short of breath. INTERVAL HISTORY: This patient presented with anemia. Also had a fracture right ankle that is being managed conservatively with a boot. The patient did have an EGD that showed gastritis and a large gastric polyp. Also had a colonoscopy. The patient also treated for aspiration pneumonia and COPD exacerbation. Today again, the patient became more short of breath and had ordered a chest x-ray. Otherwise, patient tolerating a diet. REVIEW OF SYSTEMS: Done for constitutional, cardiovascular, GI, pulmonary;relevant findings as above. CURRENT MEDICATIONS: Reviewed that include p.o. Augmentin. PHYSICAL EXAMINATION: VITAL SIGNS: Temperature 98.9, pulse 86, respiration 22, blood pressure 140/77, pulse ox 98% on 2 L. GENERAL APPEARANCE: Lying in bed. Tired. EYES: Pupils equal. Conjunctivae normal. HEENT: External appearance of nose and ears normal. Oral cavity dry. NECK: JVD unable to assess. Mass not palpable. RESPIRATORY: Effort increased. LUNGS decreased breath sounds. CARDIOVASCULAR: 1st and 2nd sounds normal. No edema. ABDOMEN: Soft, nontender. Liver and spleen not palpable. MUSCULOSKELETAL: Brace on the right leg. NEUROLOGICAL: Weak on the right side. Speech is slow. INVESTIGATIONS: Chest x-ray film personally reviewed by me shows pulmonary edema. Hemoglobin 7.4, BUN 18, creatinine 1.31, potassium 3.2. Accu-Cheks 71. ASSESSMENT: 1. Aspiration pneumonia, right lower lobe from altered mental status with clinical response. 2. Acute pulmonary edema probably from IV fluids. 3. Acute metabolic encephalopathy secondary to morphine, resolved. 4. Acute anemia, felt to be gastrointestinal bleed from gastritis from antiplatelet agents. 5. Right ankle fracture with medial malleolus with fibula secondary to fall to be managed conservatively. 6. Acute ischemic stroke in the left middle cerebral artery in a right-handed patient on last admission with residual right-sided weakness and dysarthria. 7. Coronary artery disease, prior history of coronary artery bypass. 8. Chronic obstructive pulmonary disease in an ex-smoker. 9. Multi-infarct dementia causing moderate cognitive impairment. 10.Diabetes mellitus type 2, chronically on insulin. 11.Gastroesophageal reflux disease. 12.Hyperlipidemia. 13.Hypertensive urgency on presentation. 14.Primary osteoarthritis. 15.Chronic kidney disease stage 3 from nephrosclerosis. 16.Chronic low back pain from sciatica. 17.Chronic urine incontinence. 18.Generalized anxiety disorder not otherwise specified. PLAN: Care was discussed with daughter at the bedside. We will give patient 2 doses of IV Lasix 80 mg to have one now and one in the coffee shop attendant. Check the patient's electrolytes. Replace potassium. MMODL / IJN: [id number] /
[2018-08-17] MEDS: FUROSEMIDE 10 MG/ML 10 ML VIAL IV SCH (20:25)
[2018-08-17] MEDS: ATORVASTATIN 40 MG TAB PO SCH (20:25)
[2018-08-17 20:36] LABS: Glucose,Whole Blood 159 mg/dL (75-99)
[2018-08-17] MEDS: INSULIN DETEMIR 100 UNIT/ML 10 ML VIAL SQ SCH (20:41)
[2018-08-18] MEDS: IPRATROPIUM-ALBUTEROL 3 ML NEB INHALATION SCH ×6 (00:44→19:12)
[2018-08-18] MEDS: ACETAMINOPHEN TAB 500 MG TAB PO PRN ×2 (03:33→08:11)
[2018-08-18] MEDS: clonazePAM 0.5 MG TAB PO SCH ×3 (05:04→20:55)
[2018-08-18 07:21] LABS: Glucose,Whole Blood 149 mg/dL (75-99)
[2018-08-18] MEDS ORDERED: Potassium Replacement Protocol 1 EACH MISC MISCELLANE PRN ×2 (07:30→11:25)
[2018-08-18] MEDS: FUROSEMIDE 10 MG/ML 10 ML VIAL IV SCH (07:59)
[2018-08-18] MEDS: cloNIDine HCL 0.1 MG TAB PO SCH ×2 (07:59→20:55)
[2018-08-18] MEDS: PARoxetine 10 MG TAB PO SCH (07:59)
[2018-08-18] MEDS: AMOXIC-POT CLAV 875-125MG 1 EACH TAB PO SCH ×2 (07:59→20:55)
[2018-08-18] MEDS: CYANOCOBALAMIN-FA-PYRIDOXINE 1 EACH TAB PO SCH (07:59)
[2018-08-18] MEDS: ALLOPURINOL 100 MG TAB PO SCH (08:00)
[2018-08-18] MEDS: PANTOPRAZOLE 40 MG TABLET PO SCH ×2 (08:00→17:24)
[2018-08-18] MEDS: INSULIN ASPART 100 UNIT/ML 1 ML 10 ML VIAL SQ SCH ×4 (08:06→20:55)
[2018-08-18 08:08] LABS: Calcium 7.7 mg/dL (8.4-10.2); Potassium 3.2 mmol/L (3.5-5.1)
[2018-08-18] MEDS: SENNOSIDES-DOCUSATE SODIUM 1 EACH TAB PO SCH (08:12)
[2018-08-18] MEDS: ONDANSETRON 4 MG TAB PO SCH ×3 (08:12→17:24)
[2018-08-18] MEDS: BUDESONIDE 1 MG/2 ML NEBU INHALATION SCH ×2 (09:13→20:25)
--- NOTE | 2018-08-18 09:19 | PN ---
PROGRESS NOTE DATE OF SERVICE: 08/18/2018. HISTORY: The patient is a 73-year-old pleasant white female admitted to the hospital with anemia/GI bleed. She underwent an upper endoscopy as well as colonoscopy by Dr. Treviño 2 days ago and was noted to have a gastric polyp as well as multiple colon polyps that were removed. The gastric polyp was biopsied. The biopsies are still pending at the time of this dictation. The patient is doing much better today. She is more awake. She denies any nausea, vomiting. No rectal bleeding or melena. PHYSICAL EXAMINATION: Appears comfortable no apparent distress. Vital signs are stable. Blood pressure 192/90, pulse rate 89, temperature 98.3. HEENT examination unremarkable. Conjunctivae pink. Sclerae anicteric. Oral cavity no lesions. Neck no JVD or lymph node enlargement. Chest clear to auscultation. Heart regular rate and rhythm. Abdomen soft. Bowel sounds are positive. No organomegaly. Extremities no pedal edema. Skin no rashes. Neurologic, alert and oriented x3. No focal deficits. LABS: From today, basic metabolic panel shows a BUN of 21, creatinine 1.47. CBC is still pending. Yesterday's hemoglobin is 7.3. IMPRESSION: Gastrointestinal bleed/symptomatic anemia, status post 1 unit of blood transfusion. EGD colonoscopy by Dr. Treviño 2 days ago showed evidence of gastric polyp that was biopsied, results are still pending, and colon polyps that were removed. No further bleeding. RECOMMENDATIONS: 1. Continue with Protonix 40 mg daily. 2. Await pathology results. 3. Advance diet as tolerated. 4. We will follow her closely during hospital stay. Thank you for this consultation. MMODL / IJN: [id number] /
[2018-08-18] MEDS: POTASSIUM CHLORIDE 10 MEQ in WATER FOR INJECTION 1 100ML.BAG IVPB SCH ×3 (09:43→12:12)
[2018-08-18 11:50] LABS: Glucose,Whole Blood 157 mg/dL (75-99)
[2018-08-18] MEDS: POTASSIUM CHLORIDE ER 20 MEQ TAB.ER PO SCH ×3 (12:22→20:56)
[2018-08-18 16:44] LABS: Glucose,Whole Blood 236 mg/dL (75-99)
[2018-08-18 20:03] LABS: Glucose,Whole Blood 195 mg/dL (75-99)
[2018-08-18] MEDS ORDERED: IPRATROPIUM-ALBUTEROL 3 ML NEB INHALATION PRN (20:26)
[2018-08-18] MEDS: ATORVASTATIN 40 MG TAB PO SCH (20:55)
[2018-08-18] MEDS: INSULIN DETEMIR 100 UNIT/ML 10 ML VIAL SQ SCH (20:56)
--- NOTE | 2018-08-18 23:52 | PN ---
PROGRESS NOTE DATE OF SERVICE: 08/18/2018. PRESENTING COMPLAINT: Tired. INTERVAL HISTORY: This patient presented with anemia. Also had a fracture of the right ankle. Being managed conservatively. EGD did show gastritis and large gastric polyp. Also patient had aspiration pneumonia and COPD exacerbation. Yesterday patient became fluid overloaded. Responded well to Lasix, dose of p.o. Lasix. Has improved. Patient doing much better today. Daughter at the bedside. The patient did eat rather well. Comfortable. REVIEW OF SYSTEMS: Done for constitutional, cardiovascular, GI, pulmonary; relevant findings as above. CURRENT MEDICATIONS: Reviewed, that include p.o. Augmentin, Lasix 40 mg a day will be started from tomorrow. PHYSICAL EXAMINATION: Temperature 97.6, pulse 94, respiratory rate 18, blood pressure 140/69, pulse ox 98% on 2 liters. GENERAL APPEARANCE: Lying in bed comfortable. EYES: Pupils equal. Conjunctivae normal. HEENT: External appearance of nose and ears normal. Oral cavity normal. NECK: JVD unable to assess. Mass not palpable. Respiratory effort normal. LUNGS: Decreased breath sounds. CARDIOVASCULAR: 1st and 2nd heart sounds normal. No edema. ABDOMEN: Soft, nontender. Liver and spleen not palpable. PSYCHIATRY: Following commands. MUSCULOSKELETAL: Bruise on the right leg. NEUROLOGIC: Weak on the right side. Speech is slow. INVESTIGATIONS: Potassium 3.2, BUN 21, creatinine 1.47. ASSESSMENT: 1. Aspiration pneumonia, right lower lobe from altered mental status with clinical improvement. 2. Acute pulmonary edema, probably from IV fluids. Responded well to IV Lasix. 3. Acute metabolic encephalopathy secondary to morphine, resolved. 4. Acute anemia from gastritis and antiplatelet agents. 5. Right ankle fracture with medial malleolus and fibula secondary to fall, to be managed conservatively. 6. Acute ischemic stroke in the left middle cerebral artery in a right-handed patient on last admission with residual right-sided weakness and dysarthria. 7. Coronary artery disease with prior history of coronary bypass. 8. Chronic obstructive pulmonary disease in an ex-smoker. 9. Multi-infarct dementia causing moderate cognitive impairment. 10.Diabetes mellitus type 2, chronically on insulin. 11.Gastroesophageal reflux disease. 12.Hyperlipidemia. 13.Hypertensive urgency on presentation. 14.Primary osteoarthritis. 15.Chronic kidney stage 3 from nephrosclerosis. 16.Chronic low back pain from sciatica. 17.Chronic urine incontinence. 18.Generalized anxiety disorder not otherwise specified. PLAN: Care was discussed with daughter at bedside. The patient doing much better. Looking for the patient to go back to the ECF tomorrow. Will replace patient's potassium. GIULIA / ASIF: [id number] /
[2018-08-19] MEDS: ACETAMINOPHEN TAB 500 MG TAB PO PRN ×2 (06:01→21:15)
[2018-08-19] MEDS: clonazePAM 0.5 MG TAB PO SCH ×3 (06:02→21:14)
[2018-08-19 06:35] LABS: Calcium 8.1 mg/dL (8.4-10.2); Potassium 4.1 mmol/L (3.5-5.1)
[2018-08-19 07:11] LABS: Glucose,Whole Blood 116 mg/dL (75-99)
[2018-08-19] MEDS: INSULIN ASPART 100 UNIT/ML 1 ML 10 ML VIAL SQ SCH ×4 (07:19→21:12)
[2018-08-19] MEDS: ONDANSETRON 4 MG TAB PO SCH ×3 (07:25→17:38)
[2018-08-19] MEDS: cloNIDine HCL 0.1 MG TAB PO SCH ×3 (07:25→21:14)
[2018-08-19] MEDS: AMOXIC-POT CLAV 875-125MG 1 EACH TAB PO SCH ×2 (07:25→21:14)
[2018-08-19] MEDS: PANTOPRAZOLE 40 MG TABLET PO SCH ×2 (07:25→17:38)
[2018-08-19] MEDS: SENNOSIDES-DOCUSATE SODIUM 1 EACH TAB PO SCH (07:25)
[2018-08-19] MEDS: ALLOPURINOL 100 MG TAB PO SCH (07:25)
[2018-08-19] MEDS: FUROSEMIDE 40 MG TAB PO SCH (07:25)
[2018-08-19] MEDS: PARoxetine 10 MG TAB PO SCH (07:26)
[2018-08-19] MEDS: BUDESONIDE 1 MG/2 ML NEBU INHALATION SCH ×3 (08:51→21:55)
[2018-08-19] MEDS: IPRATROPIUM-ALBUTEROL 3 ML NEB INHALATION SCH ×4 (08:51→20:03)
--- NOTE | 2018-08-19 09:38 | P.PN ---
Subjective Progress Note Date: 08/19/18 This is a 73 year-old female who is admitted after a fall and also for evaluation of anemia. Orthopedics is consulted due to right ankle fracture. Patient denies any pain in the left ankle today. Patient denies any new complaints today. Patient denies any numbness, weakness or tingling, fever/ chills, shortness of breath or chest pain. Objective - Vital Signs Vital signs: Vital Signs Temp 98.7 F 08/19/18 05:00 Pulse 92 08/19/18 05:00 Resp 18 08/19/18 07:37 BP 184/76 08/19/18 05:00 Pulse Ox 94 L 08/19/18 05:00 Intake & Output 08/18/18 08/19/18 08/19/18 18:59 06:59 18:59 Intake Total 100 1180 Balance 100 1180 Intake: Intake, IV Titration 100 Amount Potassium Chloride 10 meq 100 In Water For Injection 1 100ml.bag @ 100 mls/hr IVPB Q1HR [facility] Rx#: [id number] Oral 1180 Other: Voiding Method Bedpan Bedpan Bedpan Diaper Diaper Diaper Incontinent Incontinent Incontinent # Voids 1 3 # Bowel Movements 1 - Exam On exam patient is lying in bed in no acute distress. Boot is in place. Right lower extremity is warm and well perfused. Capillary refill is normal at <2 seconds. Neurovascular status and circulatory status are intact. - Labs CBC & Chem 7: 08/17/18 07:38 08/19/18 05:25 Labs: Abnormal Lab Results - Last 24 Hours (Table) 08/18/18 08/18/18 08/18/18 Range/Units 11:48 16:43 17:45 Sodium (137-145) mmol/L Potassium 3.4 L (3.5-5.1) mmol/L Chloride (98-107) mmol/L Carbon Dioxide (22-30) mmol/L BUN (7-17) mg/dL Creatinine (0.52-1.04) mg/dL Glucose (74-99) mg/dL POC Glucose (mg/dL) 157 H 236 H (75-99) mg/dL Calcium (8.4-10.2) mg/dL 08/18/18 08/19/18 08/19/18 Range/Units 20:02 05:25 07:09 Sodium 134 L (137-145) mmol/L Potassium (3.5-5.1) mmol/L Chloride 93 L (98-107) mmol/L Carbon Dioxide 36 H (22-30) mmol/L BUN 24 H (7-17) mg/dL Creatinine 1.33 H (0.52-1.04) mg/dL Glucose 111 H (74-99) mg/dL POC Glucose (mg/dL) 195 H 116 H (75-99) mg/dL Calcium 8.1 L (8.4-10.2) mg/dL Assessment and Plan (1) Anemia Current Visit: Yes Status: Acute Code(s): D64.9 - ANEMIA, UNSPECIFIED SNOMED Code(s): 585512215 (2) Fall Current Visit: Yes Status: Acute Code(s): W19.XXXA - UNSPECIFIED FALL, INITIAL ENCOUNTER SNOMED Code(s): 3485494 (3) GI bleed Current Visit: Yes Status: Acute Code(s): K92.2 - GASTROINTESTINAL HEMORRHAGE, UNSPECIFIED SNOMED Code(s): 05461732 (4) Maisonneuve fracture Current Visit: Yes Status: Acute Code(s): S82.863A - DISPLACED MAISONNEUVE' S FRACTURE OF UNSP LEG, INIT SNOMED Code(s): 78083280 Plan: 1. Maintain boot to right lower extremity. 2. Patient may be 50% weightbearing to the right lower extremity using a walker. 3. Continue pain control. 4. Rest ice and elevate the right lower extremity. 5. No surgical intervention planned. Patient may follow-up as outpatient.
[2018-08-19 11:28] LABS: Glucose,Whole Blood 202 mg/dL (75-99)
[2018-08-19] MEDS: CYANOCOBALAMIN-FA-PYRIDOXINE 1 EACH TAB PO SCH (12:32)
[2018-08-19] MEDS: CALCITRIOL 0.25 MCG CAP PO SCH (12:32)
--- NOTE | 2018-08-19 14:05 | DS ---
DISCHARGE SUMMARY DATE OF ADMISSION: 08/13/2018 DATE OF DISCHARGE: 08/19/2018 FINAL DIAGNOSES: 1. Aspiration pneumonia right lower lobe from altered mental status. 2. Acute pulmonary edema probably from IV fluids. Responded with IV Lasix. 3. Acute metabolic encephalopathy secondary to morphine, resolved. 4. Acute anemia from gastritis and antiplatelet agents. 5. Acute right ankle fracture with medial malleolus and fibula secondary to fall, to be managed conservatively. 6. Acute ischemic stroke in the left middle cerebral artery in a right-handed patient. Admission with residual right-sided weakness and dysarthria. 7. Coronary artery disease with history of coronary artery bypass. 8. Chronic obstructive pulmonary disease in an ex-smoker. 9. Multi-infarct dementia causing moderate cognitive impairment. 10.Diabetes mellitus type 2, chronically on insulin. 11.Gastroesophageal reflux disease. 12.Hyperlipidemia. 13.Hypertensive urgency on presentation. 14.Primary osteoarthritis. 15.Chronic kidney disease stage III from nephrosclerosis. 16.Chronic low back pain from sciatica. 17.Chronic urine incontinence. 18.Generalized anxiety disorder, not otherwise specified. CONSULTATIONS: 1. Dr. James from Orthopedics. 2. Dr. Decker from GI. 3. Dr. Johnny Coelho from Vascular Surgery. HOSPITAL COURSE: This is a pleasant 73-year-old patient who was not too long ago in the hospital, discharged from 07/17/2018 at time had an acute stroke. Patient was sent in with a hemoglobin of 6.3. Last hemoglobin was 10. Patient did have a EGD by Dr. Treviño from GI, found to have gastritis and a gastric polyp. Pathology was done. The final results are pending. Hemoglobin has since stabilized. Patient also took a fall before coming in at the [facility] with a fracture of the tibia and fibula. The patient was managed conservatively by Orthopedics. Has got a brace in place. Currently, patient is doing well. PHYSICAL EXAMINATION: Temperature 98.1, pulse 76, respirations 16, blood pressure 153/76, pulse ox 98% on 2 L. Lying in bed, awake. Patient's speech at baseline is slow with some right-sided weakness. Has got brace on the right leg. LABS: Potassium 4.1, BUN 24, creatinine 1.33. Patient also had a venous Doppler of the right upper extremity, negative for DVT. DISCHARGE MEDICATIONS: 1. Augmentin 875 one tablet p.o. q.12 six tablets. 2. Lasix 40 mg a day, new dose increased. 3. DuoNeb t.i.d. 4. Protonix 40 mg b.i.d., new medication. 5. Catapres 0.1 mg p.o. t.i.d., dose increased. DISCONTINUED MEDICATION: Omeprazole, Ventolin HFA, Lasix 20 mg, Ventolin p.r.n. ADDITIONAL DISCHARGE MEDICATIONS: 1. Vitamin D2 fifty thousand units p.o. q.14 days. 2. Melatonin 3 mg q.h.s. p.r.n. 3. Tylenol 1000 mg p.o. q.6 p.r.n. 4. Artificial Tears 1 drop both eyes daily p.r.n. 5. Allopurinol 100 mg p.o. daily. 6. Rocaltrol 0.25 mcg p.o. Sunday, , Sunday. 7. Insulin Lantus 30 units subcu q.h.s. 8. Zofran 4 mg a.c. t.i.d. 9. Kenalog 0.1% topical b.i.d. p.r.n. 10.Lipitor 40 mg q.h.s. 11.Plavix 75 mg p.o. daily. 12.Paxil 10 mg p.o. daily. 13.Folbic 1 tablet p.o. daily. 14.NovoLog per scale a.c. and bedtime. 15.Senokot S 1 tablet p.o. daily. DISPOSITION: [facility]. FOLLOW UP: Dr. Rashi James in 10 days. Follow up with Dr. Chaz Treviño on 09/03/2018. Follow up with Dr. Robbins 08/20/2018. EXTRA ORDERS: Per Orthopedic including keep the right lower extremity clean, dry, and intact. May be a better right lower extremity boot intact at 50%, use walker to aid in ambulation as needed. Elevate and apply ice to the right lower extremity for comfort, support knees. Discussion and discharge planning more than 35 minutes. MMODL / IJN: [id number] /
[2018-08-19 16:51] LABS: Glucose,Whole Blood 103 mg/dL (75-99)
[2018-08-19 20:05] LABS: Glucose,Whole Blood 133 mg/dL (75-99)
[2018-08-19] MEDS: INSULIN DETEMIR 100 UNIT/ML 10 ML VIAL SQ SCH (21:14)
[2018-08-19] MEDS: ATORVASTATIN 40 MG TAB PO SCH (21:14)
[2018-08-20 07:00] LABS: Glucose,Whole Blood 59 mg/dL (75-99)
[2018-08-20 07:12] VITALS: RESP 18
[2018-08-20 07:17] LABS: Glucose,Whole Blood 78 mg/dL (75-99)
[2018-08-20] MEDS: INSULIN ASPART 100 UNIT/ML 1 ML 10 ML VIAL SQ SCH ×2 (07:19→12:43)
[2018-08-20] MEDS: SENNOSIDES-DOCUSATE SODIUM 1 EACH TAB PO SCH (07:40)
[2018-08-20] MEDS: clonazePAM 0.5 MG TAB PO SCH ×2 (07:40→12:44)
[2018-08-20] MEDS: ONDANSETRON 4 MG TAB PO SCH ×2 (07:40→12:44)
[2018-08-20] MEDS: FUROSEMIDE 40 MG TAB PO SCH (07:42)
[2018-08-20] MEDS: cloNIDine HCL 0.1 MG TAB PO SCH (07:42)
[2018-08-20] MEDS: AMOXIC-POT CLAV 875-125MG 1 EACH TAB PO SCH (07:42)
[2018-08-20] MEDS: PANTOPRAZOLE 40 MG TABLET PO SCH (07:42)
[2018-08-20] MEDS: ALLOPURINOL 100 MG TAB PO SCH (07:42)
[2018-08-20] MEDS: PARoxetine 10 MG TAB PO SCH (07:42)
[2018-08-20] MEDS: BUDESONIDE 1 MG/2 ML NEBU INHALATION SCH (09:06)
[2018-08-20] MEDS: IPRATROPIUM-ALBUTEROL 3 ML NEB INHALATION SCH ×3 (09:06→16:04)
[2018-08-20 09:26] LABS: Calcium 8.5 mg/dL (8.4-10.2)
[2018-08-20 11:14] LABS: Glucose,Whole Blood 147 mg/dL (75-99)
[2018-08-20 12:02] VITALS: BP 144/71; TEMP 98.2
[2018-08-20] MEDS: CYANOCOBALAMIN-FA-PYRIDOXINE 1 EACH TAB PO SCH (12:44)
[2018-08-20 16:21] VITALS: PULSE 78
--- NOTE | 2018-08-21 00:09 | PN ---
PROGRESS NOTE DATE OF SERVICE: 08/19/2018. PRESENTING COMPLAINT: Tired. INTERVAL HISTORY: This patient was seen by me on 08/19/2018. Patient presented with anemia. Had a fracture of the right ankle, being managed conservatively. The patient was found to have gastritis and large gastric polyp. Also had aspiration pneumonia and COPD exacerbation. Overall doing much better. Pending to go to the [facility], looking at preauthorization. The patient is rather comfortable. Tolerating a diet. REVIEW OF SYSTEMS: Done for constitutional, cardiovascular, GI, pulmonary; relevant findings as above. CURRENT MEDICATIONS: Reviewed, that include p.o. Augmentin and p.o. Lasix. PHYSICAL EXAMINATION: Temperature 98.1, pulse 76, respirations 16, blood pressure 153/76, pulse ox 98% on 2 liters. GENERAL APPEARANCE: Lying in bed, awake, comfortable. EYES: Pupils equal. Conjunctivae normal. HEENT: External appearance of nose and ears normal. Oral cavity normal. NECK: JVD not raised. Mass not palpable. Respiratory effort normal. LUNGS: Decreased breath sounds., CARDIOVASCULAR: 1st and 2nd heart sounds. No edema. ABDOMEN: Soft, nontender. Liver and spleen not palpable. PSYCHIATRY: Awake, answering questions. MUSCULOSKELETAL: Brace on the right leg. NEUROLOGY: Weak on the right side. Speech is slow at baseline. INVESTIGATIONS: Potassium 4.1, BUN 24, creatinine 1.33. ASSESSMENT: 1. Aspiration pneumonia, right lower lobe, from altered mental status with clinical improvement. 2. Acute pulmonary edema, probably from IV fluids, responded well to IV Lasix. 3. Acute metabolic encephalopathy secondary to morphine, resolved. 4. Acute anemia from gastritis and antiplatelet agents. 5. Right ankle fracture with medial malleolus and fibula secondary to fall, to be managed conservatively. 6. Acute ischemic stroke in the left middle cerebral artery in a right-handed patient on last admission with residual right-sided weakness and dysarthria. 7. Coronary artery disease, prior history of coronary bypass. 8. Chronic obstructive pulmonary disease in an ex-smoker. 9. Multi-infarct dementia causing moderate cognitive impairment. 10.Diabetes mellitus type 2, chronically on insulin. 11.Gastroesophageal reflux disease. 12.Hyperlipidemia. 13.Hypertensive urgency on presentation. 14.Primary osteoarthritis. 15.Chronic kidney disease stage 3 from nephrosclerosis. 16.Chronic low back pain from sciatica. 17.Chronic urine incontinence. 18.Generalized anxiety disorder not otherwise specified. PLAN: Continue current medication and treatment plan. Waiting for the patient to go back to the [facility]. GIULIA / ORLINN: [id number] /
--- NOTE | 2018-08-21 09:58 | DS ---
DISCHARGE SUMMARY DISCHARGE SUMMARY ADDENDUM: DATE OF ADMISSION: 08/13/2018 DATE OF DISCHARGE: 08/20/2018 The patient was actually discharged today. Please refer to my discharge summary from yesterday. The patient is stable, tolerating a diet. On examination, temperature 98.2, pulse 72, respirations 18, blood pressure 144/71, pulse ox 98% on 2 L. LUNGS: Decreased breath sounds. CARDIOVASCULAR: First and second sounds normal. The patient is answering simple questions. DISPOSITION: [facility]. Time spent is less than 35 minutes. MMODL / IJN: [id number] /
== END 2018-08-20 16:30 | DRG 377 ==
LOC: EC 10:26 → 5MS5E 12:18
PROVIDERS: ADMIT Hospitalist; ATTEND Hospitalist
PROC: 30233N1 Transfusion of Nonautologous Red Blood Cells into Peripheral Vein, Percutaneous Approach (ICD-10-PCS; principal; 2018-08-13)
PROC: 0DBN8ZZ Excision of Sigmoid Colon, Via Natural or Artificial Opening Endoscopic (ICD-10-PCS; 2018-08-16 08:00)
PROC: 0DB78ZX Excision of Stomach, Pylorus, Via Natural or Artificial Opening Endoscopic, Diagnostic (ICD-10-PCS; 2018-08-16 08:00)
PROC: 0DBL8ZZ Excision of Transverse Colon, Via Natural or Artificial Opening Endoscopic (ICD-10-PCS; 2018-08-16 08:00)
PROC: 0DBM8ZZ Excision of Descending Colon, Via Natural or Artificial Opening Endoscopic (ICD-10-PCS; 2018-08-16 08:00)
DX: K29.71 Gastritis, unspecified, with bleeding (principal); G92 Toxic encephalopathy; J69.0 Pneumonitis due to inhalation of food and vomit; J81.0 Acute pulmonary edema; D62 Acute posthemorrhagic anemia; I69.354 Hemiplegia and hemiparesis following cerebral infarction affecting left non-dominant side; J44.1 Chronic obstructive pulmonary disease with (acute) exacerbation; S82.861A Displaced Maisonneuve's fracture of right leg, initial encounter for closed fracture; D12.4 Benign neoplasm of descending colon; D12.5 Benign neoplasm of sigmoid colon; E11.22 Type 2 diabetes mellitus with diabetic chronic kidney disease; E78.5 Hyperlipidemia, unspecified; F01.50 Vascular dementia, unspecified severity, without behavioral disturbance, psychotic disturbance, mood disturbance, and anxiety; F41.1 Generalized anxiety disorder; G89.29 Other chronic pain; T40.2X5A Adverse effect of other opioids, initial encounter; I12.9 Hypertensive chronic kidney disease with stage 1 through stage 4 chronic kidney disease, or unspecified chronic kidney disease; I16.0 Hypertensive urgency; I25.10 Atherosclerotic heart disease of native coronary artery without angina pectoris; I69.311 Memory deficit following cerebral infarction; K21.9 Gastro-esophageal reflux disease without esophagitis; K31.7 Polyp of stomach and duodenum; K64.8 Other hemorrhoids; M19.91 Primary osteoarthritis, unspecified site; N18.3 Chronic kidney disease, stage 3 (moderate); R32 Unspecified urinary incontinence; W19.XXXA Unspecified fall, initial encounter; Z79.02 Long term (current) use of antithrombotics/antiplatelets; Z79.4 Long term (current) use of insulin; Z79.899 Other long term (current) drug therapy; Z82.3 Family history of stroke; Z82.49 Family history of ischemic heart disease and other diseases of the circulatory system; Z85.828 Personal history of other malignant neoplasm of skin; Z86.010 Personal history of colon polyps; Z87.891 Personal history of nicotine dependence; Z88.8 Allergy status to other drugs, medicaments and biological substances; Z90.710 Acquired absence of both cervix and uterus; Z95.1 Presence of aortocoronary bypass graft; Z98.42 Cataract extraction status, left eye; Z98.41 Cataract extraction status, right eye; Z96.1 Presence of intraocular lens; I69.322 Dysarthria following cerebral infarction; M54.40 Lumbago with sciatica, unspecified side
CPT/HCPCS: 29505; 36415; 43239; 45380; 45382; 45385; 70450; 71045; 73502; 80048; 80053; 81001; 82728; 83036; 83540; 83550; 83735; 84132; 85025; 85610; 85730; 86850; 86900; 86901; 86920; 87077; 87086; 87186; 88305; 94640; 94760; 96361; 96374; 96375; 99285

== ENCOUNTER 2018-08-22 10:05 | Inpatient (IN) | payer MEDICARE, OTHER ==
[2018-08-22] MEDS ORDERED: IPRATROPIUM 0.5 MG/2.5 ML NEBU INHALATION STA (10:38)
[2018-08-22] MEDS ORDERED: NITROGLYCERIN SL TABS 0.4 MG TAB SUBLINGUAL STA (10:42)
--- NOTE | 2018-08-22 10:42 | ED ---
General Adult HPI - General Chief complaint: Shortness of Breath Stated complaint: resp distress Time Seen by Provider: 08/22/18 10:14 Source: patient, EMS, RN notes reviewed, old records reviewed Mode of arrival: EMS Limitations: no limitations - History of Present Illness Initial comments: 73-year-old female brought in by EMS from shelter for evaluation of hypertension and dyspnea. Patient was recently discharged from the hospital, she was admitted with anemia, GI bleed, and fall resulting in the right ankle fracture. Patient denies any pain complaints. She is complaining of some dyspnea. Denies fever or chills. Patient is somewhat of a poor historian. Denies lower extremity swelling, denies significant pain in her ankle or calf. - Related Data Home Medications Medication Instructions Recorded Confirmed Ergocalciferol [Vitamin D2 50,000 unit PO Q14D 12/04/14 08/22/18 (DRISDOL)] Melatonin 3 mg PO HS PRN 12/04/14 08/22/18 Acetaminophen Tab [Tylenol] 1,000 mg PO Q6HR PRN 07/20/15 08/22/18 Hypromellose [Artificial Tears] 1 drop BOTH EYES DAILY PRN 07/20/15 08/22/18 Allopurinol [Zyloprim] 100 mg PO DAILY 06/01/17 08/22/18 Calcitriol [Rocaltrol] 0.25 mcg PO MOTHSA 06/01/17 08/22/18 Insulin Glargine,Hum.rec.anlog 30 unit SQ HS 06/01/17 08/22/18 [Lantus Solostar] Ondansetron [Zofran] 4 mg PO AC-TID 06/01/17 08/22/18 Triamcinolone 0.1% Cream [Kenalog 1 applicatio TOPICAL BID PRN 06/01/17 08/22/18 0.1% Cream] Fnjodakfgwczwj-HD-Stucfnsrun 1 tab PO DAILY 08/13/18 08/22/18 [Folbic] Insulin Aspart [NovoLOG See Protocol SQ ACHS 08/13/18 08/22/18 (formulary)] Sennosides-Docusate Sodium 1 tab PO DAILY 08/13/18 08/22/18 [Senokot-S] Amoxic-Pot Clav 875-125Mg 1 tab PO Q12HR 08/22/18 08/22/18 [Augmentin 875-125] Ipratropium-Albuterol Nebulize 3 ml INHALATION RT-TID 08/22/18 08/22/18 [Duoneb 0.5 mg-3 mg/3 ml Soln] Previous Rx's Medication Instructions Recorded Atorvastatin [Lipitor] 40 mg PO HS tab 07/16/18 Clopidogrel [Plavix] 75 mg PO DAILY tab 07/16/18 PARoxetine [Paxil] 10 mg PO DAILY tab 07/16/18 Furosemide [Lasix] 40 mg PO DAILY tab 08/19/18 Pantoprazole [Protonix] 40 mg PO AC-BID tablet. 08/19/18 cloNIDine HCL [Catapres] 0.1 mg PO TID #0 tab 08/19/18 clonazePAM [KlonoPIN] 0.5 mg PO TID@05,13,21 #9 tab 08/19/18 Allergies Allergy/AdvReac Type Severity Reaction Status Date / Time benztropine mesylate Allergy Unknown Verified 08/22/18 10:35 [From Cogentin] donepezil [From Aricept] Allergy Unknown Verified 08/22/18 10:35 metoclopramide HCl Allergy Unknown Verified 08/22/18 10:35 [From Reglan] prochlorperazine edisylate Allergy Unknown Verified 08/22/18 10:35 [From Compazine] prochlorperazine maleate Allergy Unknown Verified 08/22/18 10:35 [From Compazine] Review of Systems ROS Statement: Those systems with pertinent positive or pertinent negative responses have been documented in the HPI. ROS Other: All systems not noted in ROS Statement are negative. Past Medical History Past Medical History: Coronary Artery Disease (CAD), Cancer, COPD, CVA/TIA, Dementia, Diabetes Mellitus, GERD/Reflux, Hyperlipidemia, Hypertension, Osteoarthritis (OA), Renal Disease, Syncope Additional Past Medical History / Comment(s): 07/10/18 cva affected dominant rt side. 2008 CVA affected balance/coordination/short term memory/ caused chronic nausea and impulsiveness/ pt was trached and had a peg tube, IDDM type II, CKD stage III, problems with potassium levels, low back pain with sciatica, gout in hands/feet, skin cancer with removal, urinary incontinence and occasional diarrhea. History of Any Multi-Drug Resistant Organisms: None Reported Past Surgical History: Back Surgery, Coronary Bypass/CABG, Heart Catheterization , Hysterectomy, Orthopedic Surgery Additional Past Surgical History / Comment(s): Bilateral carotid endarectmy, CVA and had posterior craniotomy/brain surgery to remove blood clot/trach, peg since removed, 2011 CABG 4 vessel, 2 back surgeries, bilateral carpal tunnel releases, bilateral cataract removals/lens implants, colonoscopy with benign polyp, skin cancer removal. Past Anesthesia/Blood Transfusion Reactions: No Reported Reaction Past Psychological History: No Psychological Hx Reported Smoking Status: Former smoker - Past Family History Mother Family Medical History: CVA/TIA Additional Family Medical History / Comment(s): Mother of a CVA at the age of 47yrs. Father Family Medical History: Myocardial Infarction (NM) Additional Family Medical History / Comment(s): Father of a NM around age 60yrs. General Exam Limitations: no limitations General appearance: alert Head exam: Present: atraumatic, normocephalic Eye exam: Present: normal appearance, PERRL ENT exam: Present: normal exam Neck exam: Present: normal inspection. Absent: tenderness, meningismus Respiratory exam: Present: respiratory distress, wheezes, rales Cardiovascular Exam: Present: normal rhythm, tachycardia GI/Abdominal exam: Present: soft, distended. Absent: tenderness, guarding, rebound Extremities exam: Present: normal capillary refill, other (Patient has right ankle boot in place). Absent: pedal edema Neurological exam: Present: alert, oriented X3 Skin exam: Present: warm, dry, intact. Absent: cyanosis, diaphoretic Course Vital Signs 08/22/18 08/22/18 08/22/18 10:14 10:28 10:32 Temperature 97.2 F L Pulse Rate 132 H Respiratory 26 H 22 22 Rate Blood Pressure 212/99 O2 Sat by Pulse 95 96 Oximetry 08/22/18 08/22/18 08/22/18 11:20 11:37 11:45 Temperature Pulse Rate 144 H 139 H 136 H Respiratory 28 H 30 H Rate Blood Pressure 243/98 228/99 O2 Sat by Pulse 98 97 Oximetry 08/22/18 08/22/18 08/22/18 11:55 12:10 12:28 Temperature Pulse Rate 133 H 118 H 110 H Respiratory 22 18 19 Rate Blood Pressure 207/89 201/89 214/86 O2 Sat by Pulse 97 98 99 Oximetry 08/22/18 08/22/18 12:44 13:15 Temperature Pulse Rate 108 H 106 H Respiratory 18 19 Rate Blood Pressure 210/89 200/87 O2 Sat by Pulse 99 99 Oximetry EKG Findings - EKG Comments: EKG Findings:: EKG: Sinus tachycardia, ST segment depression and T-wave inversion in the lateral precordium and inferior leads, no ST segment elevation. Rate of 141, OK interval 144, QRS duration 94, QTC 456 Medical Decision Making - Medical Decision Making 73-year-old female presenting by EMS from shelter with hypertension and dyspnea. On initial evaluation patient is in moderate to severe respiratory distress she is tachycardic, tachypneic, and hypertensive. IV is established, patient is given sublingual nitro and started on nitroglycerin infusion. She is also given Lasix for presumed pulmonary edema. Chest x-ray obtained which is consistent with pulmonary edema. BNP is significantly elevated at 24,000. Hemoglobin 8.3 which is stable for this patient. After initiation of BiPAP and nitroglycerin infusion, patient's symptoms and vitals significantly improved. She has a normal respiratory rate and oxygenation. Her blood pressure is down trending, heart rate is improved. Patient will be admitted to the ICU, family counselor is notified. - Lab Data Result diagrams: 08/22/18 10:27 08/22/18 10:27 Lab Results 08/22/18 08/22/18 08/22/18 Range/Units 10:27 10:27 10:27 WBC 13.1 H (3.8-10.6) k/uL RBC 3.26 L (3.80-5.40) m/uL Hgb 8.3 L (11.4-16.0) gm/dL Hct 27.2 L (34.0-46.0) % MCV 83.5 (80.0-100.0) fL MCH 25.4 (25.0-35.0) pg MCHC 30.4 L (31.0-37.0) g/dL RDW 16.8 H (11.5-15.5) % Plt Count 340 (150-450) k/uL Neutrophils % 73 % Lymphocytes % 13 % Monocytes % 8 % Eosinophils % 1 % Basophils % 0 % Neutrophils # 9.6 H (1.3-7.7) k/uL Lymphocytes # 1.7 (1.0-4.8) k/uL Monocytes # 1.1 H (0-1.0) k/uL Eosinophils # 0.2 (0-0.7) k/uL Basophils # 0.0 (0-0.2) k/uL Hypochromasia Marked Poikilocytosis Moderate Anisocytosis Slight PT (9.0-12.0) sec INR (<1.2) APTT (22.0-30.0) sec Sodium 132 L (137-145) mmol/L Potassium 4.2 (3.5-5.1) mmol/L Chloride 92 L (98-107) mmol/L Carbon Dioxide 30 (22-30) mmol/L Anion Gap 10 mmol/L BUN 28 H (7-17) mg/dL Creatinine 1.22 H (0.52-1.04) mg/dL Est GFR (CKD-EPI)AfAm 50 (>60 ml/min/1.73 sqM) Est GFR (CKD-EPI)NonAf 44 (>60 ml/min/1.73 sqM) Glucose 220 H (74-99) mg/dL Calcium 8.7 (8.4-10.2) mg/dL Magnesium 2.0 (1.6-2.3) mg/dL Total Bilirubin 0.8 (0.2-1.3) mg/dL AST 41 H (14-36) U/L ALT 28 (9-52) U/L Alkaline Phosphatase 104 (38-126) U/L Total Creatine Kinase 27 L (30-135) U/L CK-MB (CK-2) 1.1 (0.0-2.4) ng/mL CK-MB (CK-2) Rel Index 4.1 Troponin I 0.033 (0.000-0.034) ng/mL NT-Pro-B Natriuret Pep pg/mL Total Protein 6.7 (6.3-8.2) g/dL Albumin 3.0 L (3.5-5.0) g/dL 08/22/18 08/22/18 Range/Units 10:27 10:27 WBC (3.8-10.6) k/uL RBC (3.80-5.40) m/uL Hgb (11.4-16.0) gm/dL Hct (34.0-46.0) % MCV (80.0-100.0) fL MCH (25.0-35.0) pg MCHC (31.0-37.0) g/dL RDW (11.5-15.5) % Plt Count (150-450) k/uL Neutrophils % % Lymphocytes % % Monocytes % % Eosinophils % % Basophils % % Neutrophils # (1.3-7.7) k/uL Lymphocytes # (1.0-4.8) k/uL Monocytes # (0-1.0) k/uL Eosinophils # (0-0.7) k/uL Basophils # (0-0.2) k/uL Hypochromasia Poikilocytosis Anisocytosis PT 10.2 (9.0-12.0) sec INR 1.0 (<1.2) APTT 21.4 L (22.0-30.0) sec Sodium (137-145) mmol/L Potassium (3.5-5.1) mmol/L Chloride (98-107) mmol/L Carbon Dioxide (22-30) mmol/L Anion Gap mmol/L BUN (7-17) mg/dL Creatinine (0.52-1.04) mg/dL Est GFR (CKD-EPI)AfAm (>60 ml/min/1.73 sqM) Est GFR (CKD-EPI)NonAf (>60 ml/min/1.73 sqM) Glucose (74-99) mg/dL Calcium (8.4-10.2) mg/dL Magnesium (1.6-2.3) mg/dL Total Bilirubin (0.2-1.3) mg/dL AST (14-36) U/L ALT (9-52) U/L Alkaline Phosphatase (38-126) U/L Total Creatine Kinase (30-135) U/L CK-MB (CK-2) (0.0-2.4) ng/mL CK-MB (CK-2) Rel Index Troponin I (0.000-0.034) ng/mL NT-Pro-B Natriuret Pep 46524 pg/mL Total Protein (6.3-8.2) g/dL Albumin (3.5-5.0) g/dL Critical Care Time Critical Care Time: Yes Total Critical Care Time: 35 Disposition Clinical Impression: Congestive heart failure, Hypertensive urgency, Flash pulmonary edema Disposition: ADMITTED IP TO THIS [facility] Condition: Serious Is patient prescribed a controlled substance at d/c from ED?: No Referrals: Jerel Robbins DO [Primary Care Provider] - 1-2 days Decision to Admit Reason: Admit from EC Decision Date: 08/22/18 Decision Time: 13:45
[2018-08-22 11:01] LABS: Anisocytosis Slight; Basophils % (A) 0 %; Eosinophils # (A) 0.2 k/uL (0-0.7); Eosinophils % (A) 1 %; HCT 27.2 % (34.0-46.0); HGB 8.3 gm/dL (11.4-16.0); Hypochromasia Marked; Lymphocytes # (A) 1.7 k/uL (1.0-4.8); Lymphocytes % (A) 13 %; MCH 25.4 pg (25.0-35.0); MCHC 30.4 g/dL (31.0-37.0); MCV 83.5 fL (80.0-100.0); Mean Platelet Volume 7.3; Monocytes # (A) 1.1 k/uL (0-1.0); Monocytes % (A) 8 %; Neutrophils # (A) 9.6 k/uL (1.3-7.7); Neutrophils % (A) 73 %; Platelet Count 340 k/uL (150-450); Poikilocytosis Moderate; RBC 3.26 m/uL (3.80-5.40); RDW 16.8 % (11.5-15.5); WBC 13.1 k/uL (3.8-10.6)
[2018-08-22 11:14] LABS: Calcium 8.7 mg/dL (8.4-10.2); Total Bilirubin 0.8 mg/dL (0.2-1.3); Total Protein 6.7 g/dL (6.3-8.2)
[2018-08-22 11:16] LABS: Prothrombin Time 10.2 sec (9.0-12.0)
[2018-08-22 11:18] LABS: Partial Thromboplastin Time 21.4 sec (22.0-30.0)
[2018-08-22 11:24] LABS: Potassium 4.2 mmol/L (3.5-5.1)
[2018-08-22] MEDS ORDERED: FUROSEMIDE 10 MG/ML 4 ML VIAL IV STA (11:39)
[2018-08-22] MEDS ORDERED: NITROGLYCERIN-D5W PMX 50 MG in DEXTROSE/WATER 1 250ML.BAG IV ONE (11:51)
--- NOTE | 2018-08-22 11:56 | XR ---
EXAMINATION TYPE: XR chest 2V DATE OF EXAM: 08/22/2018 COMPARISON: Prior chest x-ray 08/17/2018 HISTORY: Difficulty breathing TECHNIQUE: Frontal and lateral views of the chest are obtained. FINDINGS: Patient is post median sternotomy and the heart remains enlarged. Bibasilar increased dens ity persists. There is prominence of the central vascularity and interstitium. 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 No pneumothorax. IMPRESSION: Correlate for congestive heart failure. There are likely basilar effusions and associated edema versus atelectasis, pneumonia not excluded.
[2018-08-22 12:00] LABS: Creatine Kinase MB 1.1 ng/mL (0.0-2.4); Troponin I 0.033 ng/mL (0.000-0.034)
[2018-08-22] MEDS ORDERED: NALOXONE 0.4 MG/ML 1 ML VIAL IV PRN (13:40)
[2018-08-22] MEDS: cloNIDine HCL 0.1 MG TAB PO SCH ×2 (15:05→21:51)
[2018-08-22] MEDS: ONDANSETRON 4 MG/2 ML VIAL IVP SCH ×2 (15:16→21:52)
[2018-08-22] MEDS ORDERED: FUROSEMIDE 10 MG/ML 4 ML VIAL IV SCH (17:00)
[2018-08-22] MEDS ORDERED: TRIAMCINOLONE 0.1% CREAM 80 GM TUBE TOPICAL PRN (19:14)
[2018-08-22] MEDS ORDERED: ARTIFICIAL TEARS-HYPROMELLOSE DROPS 15 ML BTL BOTH EYES PRN (19:14)
[2018-08-22] MEDS: FUROSEMIDE 10 MG/ML 10 ML VIAL IV SCH (20:00)
[2018-08-22] MEDS: CALCITRIOL 0.25 MCG CAP PO SCH (20:03)
[2018-08-22] MEDS: PARoxetine 10 MG TAB PO SCH (20:19)
[2018-08-22] MEDS: PANTOPRAZOLE 40 MG TABLET PO SCH (20:19)
[2018-08-22 20:32] LABS: Amorphous Sediment,Urine Rare /hpf; Appearance,Urine Cloudy (Clear); Bacteria,Urine Moderate /hpf; Bilirubin,Urine Negative (Negative); Blood,Urine Small (Negative); Color,Urine Yellow; Glucose,Urine (UA) 2+ (Negative); Hyaline Casts,Urine 16 /lpf (0-2); Ketones,Urine Negative (Negative); Leukocyte Esterase,Urine Moderate (Negative); Mucus,Urine Rare /hpf; Nitrite,Urine Negative (Negative); PH, Urine 5.5 (5.0-8.0); Protein,Urine 2+ (Negative); RBC,Urine 5 /hpf (0-5); Specific Gravity,Urine 1.011 (1.001-1.035); Squamous Epithelial Cell,Urine 2 /hpf (0-4); Urobilinogen,Urine <2.0 mg/dL (<2.0); WBC,Urine 29 /hpf (0-5)
[2018-08-22] MEDS: clonazePAM 0.5 MG TAB PO SCH (20:34)
[2018-08-22 20:47] LABS: Glucose,Whole Blood 283 mg/dL (75-99)
[2018-08-22] MEDS: INSULIN ASPART 100 UNIT/ML 1 ML 10 ML VIAL SQ SCH (20:52)
[2018-08-22] MEDS ORDERED: AMOXIC-POT CLAV 875-125MG 1 EACH TAB PO SCH (21:00)
[2018-08-22 21:41] LABS: Glucose,Whole Blood 254 mg/dL (75-99)
[2018-08-22] MEDS: INSULIN DETEMIR 100 UNIT/ML 10 ML VIAL SQ SCH (21:43)
--- NOTE | 2018-08-22 22:41 | HP ---
HISTORY AND PHYSICAL DATE OF ADMISSION: 08/22/2018 DATE OF SERVICE: 08/22/2018 PRESENTING COMPLAINT: Short of breath. HISTORY OF PRESENTING COMPLAINT: This is a pleasant 73-year-old patient who was just in the hospital, admitted on 08/13/2018 and discharged 2 days ago. Patient was then admitted with acute right ankle fracture with a medial malleolus and fibular fracture that was managed conservatively by Orthopedics. Patient also had COPD exacerbation that was treated. Also patient had an episode of acute pulmonary edema. This responded well to IV fluids. She also had aspiration pneumonia, right lower lobe, that responded well to antibiotics. The patient was doing rather well. The patient recently has had a stroke and at her baseline now has got slurred staccato speech and right-sided weakness. She is able to tolerate a diet. The patient has got a brace on the right leg. Patient's daughter is involved with the case, said that patient did well yesterday. In the early hours of this morning they were called that the patient had become rather short of breath and in respiratory distress. She was brought into the ER. The patient was found to have a blood pressure of over 210 systolic. Patient was put on a BiPAP, given IV Lasix. Patient remains on the BiPAP. Tired and rundown. Patient on her last admission also had a hemoglobin of 6.3. She had an EGD that showed some gastritis and a polyp that was removed from the stomach. REVIEW OF SYSTEMS: CONSTITUTIONAL: Tired. HEENT: None. RESPIRATORY: Short of breath. CARDIOVASCULAR: As above. No edema. GASTROINTESTINAL: None. GENITOURINARY: None. MUSCULOSKELETAL: Pain in the joints. DERMATOLOGICAL: None. HEMATOLOGICAL: None. LYMPHATICS: None. PSYCHIATRY: Patient is forgetful. NEUROLOGICAL: Weakness on the right side. Speech is slow. PAST MEDICAL HISTORY: 1. Acute stroke in the left middle cerebral artery recently. 2. Coronary artery disease with bypass. 3. COPD. 4. Multi-infarct dementia. 5. Diabetes. 6. GERD. 7. Hyperlipidemia. 8. Hypertension. 9. Osteoarthritis. 10.Chronic kidney disease, stage III. 11.Chronic low back pain. 12.Sciatica. 13.Chronic urine incontinence. 14.Dysarthria from recent stroke. 15.Generalized anxiety. 16.Gastritis. 17.Recent right tibia and fibula fracture secondary to fall, for non-surgical management. PAST SURGICAL HISTORY: 1. Back surgery x2. 2. Coronary artery bypass. 3. Bilateral carotid endarterectomy. 4. Stroke in posterior craniotomy; brain surgery to remove blood clot. 5. Trach and PEG tube, since removed. 6. Four-vessel bypass in 2011. 7. Bilateral carpal tunnel release. 8. Bilateral cataracts removed. SOCIAL HISTORY: Resident of [facility]. Does need assistance to be moved. The patient smoked for 45 years, stopped in 2009. Smoked a pack and a half a day. No alcohol. FAMILY HISTORY: Father of a heart attack in his 60s. HOME MEDICATIONS: 1. Triamcinolone 0.1% topically b.i.d. p.r.n. 2. Melatonin 3 mg at bedtime p.r.n. 3. Tylenol 1000 mg p.o. q.6 p.r.n. 4. Catapres 0.1 mg p.o. t.i.d. 5. DuoNeb t.i.d. 6. Protonix 40 mg at bedtime. 7. Senokot-S one tablet p.o. daily. 8. Paxil 10 mg p.o. daily. 9. Plavix 75 mg p.o. daily. 10.Lasix 40 mg p.o. daily. 11.Folbic 1 tablet p.o. daily. 12.Vitamin D2 50,000 units p.o. every 14 days. 13.Rocaltrol 0.25 mcg Sunday, , Sunday. 14.Allopurinol 100 mg p.o. daily. 15.Augmentin 1 tablet p.o. b.i.d. 16.Klonopin 0.5 mg p.o. t.i.d. 17.Protonix 40 mg before meals b.i.d. 18.Zofran 4 mg before meals t.i.d. 19.NovoLog per scale. 20.Insulin Lantus 30 units subcutaneously at bedtime. 21.Artificial Tears 1 drop to both eyes daily p.r.n. 22.Lipitor 40 mg at bedtime. ALLERGIES: 1. BENZTROPINE. 2. ARICEPT. 3. REGLAN. 4. COMPAZINE. PHYSICAL EXAMINATION: VITAL SIGNS ON PRESENTATION: Temperature 97.2, pulse 130, respiration 26, blood pressure 212/99, pulse ox 95% on 6 L. GENERAL APPEARANCE: Well built; BMI more than 30. Lying in bed, awake. On a BiPAP. EYES: Pupils equal. Conjunctivae normal. HEENT: External appearance of nose and ears normal. Oral cavity dry. NECK: JVD unable to assess. Mass not palpable. RESPIRATORY: Effort increased. LUNGS: Decreased breath sounds. CARDIOVASCULAR: First and second sounds normal. No edema. ABDOMEN: Soft, non-tender. Liver and spleen not palpable. LYMPHATIC: No lymph node palpable in neck or axillae. PSYCHIATRY: Patient is able to answer simple questions. NEUROLOGICAL: Pupils equal. Speech is slow and staggered. Power on the right arm is 3/5. Right leg is also weak. The patient has got a brace in place. INVESTIGATIONS: White count 13.1, hemoglobin 8.3, potassium 4.2, BUN 28, creatinine 1.22. ProBNP 24,000. Chest x-ray film, personally reviewed by me, shows pulmonary edema. EKG tracing, personally reviewed by me, showed sinus tachycardia with nonspecific ST-segment changes. ASSESSMENT: 1. Acute flash pulmonary edema causing acute hypoxic respiratory failure. 2. Recent aspiration pneumonia, right lower lobe, for which patient is completing a course of Augmentin. 3. Acute right ankle fracture with medial malleolus and fibula secondary to fall from last admission with a brace in place. 4. Acute ischemic stroke in the left middle cerebral artery in a right-handed patient with residual right-sided weakness and dysarthria. 5. Coronary artery disease with history of coronary artery bypass. 6. Chronic obstructive pulmonary disease in an ex-smoker. 7. Multi-infarct dementia causing moderate cognitive impairment. 8. Diabetes mellitus, type 2, chronically on insulin. 9. Gastroesophageal reflux disease. 10.Hyperlipidemia. 11.Hypertensive urgency on presentation. 12.Primary osteoarthritis. 13.Chronic kidney disease, stage III, from nephrosclerosis. 14.Chronic low back pain from sciatica. 15.Chronic urine incontinence. 16.Generalized anxiety disorder not otherwise specified. PLAN: Will put the patient on IV Lasix 60 mg q.8. Two-D echocardiogram has been ordered. Home medications are resumed. Patient did get a BiPAP. Care was discussed with the patient and daughter at the bedside. Questions were answered. Prognosis is guarded. MMODL / IJN: [id number] /
[2018-08-23] MEDS: INSULIN ASPART 100 UNIT/ML 1 ML 10 ML VIAL SQ SCH ×6 (02:03→20:25)
[2018-08-23] MEDS: FUROSEMIDE 10 MG/ML 10 ML VIAL IV SCH ×3 (02:04→16:24)
[2018-08-23] MEDS: ATORVASTATIN 40 MG TAB PO SCH ×2 (02:05→20:20)
[2018-08-23 02:12] LABS: Glucose,Whole Blood 197 mg/dL (75-99)
[2018-08-23] MEDS: clonazePAM 0.5 MG TAB PO SCH ×3 (04:49→20:21)
[2018-08-23 05:05] LABS: Glucose,Whole Blood 178 mg/dL (75-99)
[2018-08-23 05:47] LABS: Albumin 2.8 g/dL (3.5-5.0); Calcium 8.4 mg/dL (8.4-10.2); Phosphorus 3.5 mg/dL (2.5-4.5); Potassium 3.8 mmol/L (3.5-5.1); Total Bilirubin 0.4 mg/dL (0.2-1.3); Total Protein 6.2 g/dL (6.3-8.2)
[2018-08-23 05:49] LABS: Anisocytosis Slight; Basophils % (A) 0 %; Eosinophils % (A) 0 %; HCT 24.8 % (34.0-46.0); HGB 7.7 gm/dL (11.4-16.0); Hypochromasia Marked; Lymphocytes # (A) 0.6 k/uL (1.0-4.8); Lymphocytes % (A) 6 %; MCH 25.9 pg (25.0-35.0); MCHC 30.9 g/dL (31.0-37.0); MCV 83.9 fL (80.0-100.0); Mean Platelet Volume 7.4; Monocytes # (A) 0.8 k/uL (0-1.0); Monocytes % (A) 8 %; Neutrophils # (A) 9.3 k/uL (1.3-7.7); Neutrophils % (A) 84 %; Platelet Count 263 k/uL (150-450); Poikilocytosis Moderate; RBC 2.96 m/uL (3.80-5.40); RDW 16.9 % (11.5-15.5); WBC 11.1 k/uL (3.8-10.6)
[2018-08-23] MEDS ORDERED: Potassium Replacement Protocol 1 EACH MISC MISCELLANE PRN (06:15)
[2018-08-23] MEDS: PANTOPRAZOLE 40 MG TABLET PO SCH ×2 (06:56→18:05)
[2018-08-23] MEDS ORDERED: POTASSIUM CHLORIDE ER 20 MEQ TAB.ER PO SCH (07:00)
[2018-08-23] MEDS ORDERED: INSULIN ASPART 100 UNIT/ML 1 ML 10 ML VIAL SQ SCH (07:30)
--- NOTE | 2018-08-23 08:50 | XR ---
EXAMINATION TYPE: XR chest 1V DATE OF EXAM: 08/23/2018 COMPARISON: 08/22/2018 HISTORY: Difficulty breathing FINDINGS: There are bilateral pleural effusions with cardiomegaly and bibasilar infiltrate. There is a diffuse interstitial pattern. Postsurgical changes. Arthropathy of the shoulders. Calcified density overlyin g the left humerus. IMPRESSION: 1. Bilateral infiltrate and pleural effusion correlate for CHF. Otherwise consider pneumonia.
[2018-08-23] MEDS: ALLOPURINOL 100 MG TAB PO SCH (09:05)
[2018-08-23] MEDS: cloNIDine HCL 0.1 MG TAB PO SCH (09:06)
[2018-08-23] MEDS: CLOPIDOGREL 75 MG TAB PO SCH (09:06)
[2018-08-23] MEDS: PARoxetine 10 MG TAB PO SCH (09:08)
[2018-08-23] MEDS: CYANOCOBALAMIN-FA-PYRIDOXINE 1 EACH TAB PO SCH (09:08)
--- NOTE | 2018-08-23 12:02 | ECHOF ---
Referral Reason:chf MEASUREMENTS -------- HEIGHT: 170.2 cm WEIGHT: 94.3 kg BP: 168/76 IVSd: 1.5 cm (0.6 - 1.1) LVIDd: 4.9 cm (3.9 - 5.3) LVPWd: 1.7 cm (0.6 - 1.1) IVSs: 1.6 cm LVIDs: 3.8 cm LVPWs: 1.5 cm LA Diam: 4.4 cm (2.7 - 3.8) LAESV Index (A-L): 39.15 ml/m Ao Diam: 3.0 cm (2.0 - 3.7) AV Cusp: 1.3 cm (1.5 - 2.6) LA Diam: 4.7 cm (2.7 - 3.8) MV EXCURSION: 14.751 mm (> 18.000) MV EF SLOPE: 47 mm/s (70 - 150) EPSS: 1.4 cm MV E David: 1.05 m/s MV DecT: 154 ms MV A David: 0.64 m/s MV E/A Ratio: 1.65 RAP: 5.00 mmHg RVSP: 70.00 mmHg FINDINGS -------- Sinus rhythm. This was a technically adequate study. The left ventricular size is normal. There is mild concentric left ventricular hypertrophy. Overa ll left ventricular systolic function is mildly impaired with, an EF between 45 - 50 %. Mid anteros eptal LV wall motion is hypokinetic. Apical septum LV wall motion is hypokinetic. The right ventricle is normal in size. The left atrium is moderately dilated. LA is severely dilated >40 ml/m2 The right atrial size is normal. There is mild aortic valve sclerosis. There is no evidence of aortic regurgitation. Mild mitral annular calcification present. Moderate mitral regurgitation is present. Moderate to severe tricuspid regurgitation present. There is moderate to severe pulmonary hypertens ion. The right ventricular systolic pressure, as measured by Doppler, is 70.00mmHg. Trace/mild (physiologic) pulmonic regurgitation. The aortic root size is normal. There is no pericardial effusion. CONCLUSIONS -------- 1. The left ventricular size is normal. 2. There is mild concentric left ventricular hypertrophy. 3. The right ventricle is normal in size. 4. The left atrium is moderately dilated. 5. LA is severely dilated >40 ml/m2 6. The right atrial size is normal. 7. There is mild aortic valve sclerosis. 8. Mild mitral annular calcification present. 9. Moderate mitral regurgitation is present. 10. Moderate to severe tricuspid regurgitation present. 11. There is moderate to severe pulmonary hypertension. 12. The right ventricular systolic pressure, as measured by Doppler, is 70.00mmHg. 13. Trace/mild (physiologic) pulmonic regurgitation. 14. The aortic root size is normal. 15. There is no pericardial effusion. LAND LEVELER: Yazmin Hamilton RDCS
[2018-08-23 12:26] LABS: Glucose,Whole Blood 201 mg/dL (75-99)
[2018-08-23] MEDS: SENNOSIDES-DOCUSATE SODIUM 1 EACH TAB PO SCH (12:27)
[2018-08-23] MEDS: ONDANSETRON 4 MG/2 ML VIAL IVP SCH ×3 (12:27→21:30)
[2018-08-23] MEDS ORDERED: LORazepam 2 MG/ML INJ IV STA (13:30)
[2018-08-23] MEDS ORDERED: DILTIAZEM 50 MG in SODIUM CHLORIDE 0.9% 40 ML IV ONE (13:30)
[2018-08-23] MEDS ORDERED: LORazepam 2 MG/ML INJ ONE (13:31)
[2018-08-23] MEDS ORDERED: FUROSEMIDE 10 MG/ML 4 ML VIAL ONE ×2 (13:35→13:37)
[2018-08-23] MEDS ORDERED: MORPHINE SULFATE 4 MG/ML SYRINGE ONE (13:36)
[2018-08-23 13:37] LABS: Glucose,Whole Blood 207 mg/dL (75-99)
[2018-08-23 13:40] LABS: Glucose,Whole Blood 234 mg/dL (75-99)
[2018-08-23] MEDS ORDERED: DEXTROSE 5% IN WATER 100 ML with AMIODARONE 150 MG IV ONE (13:41)
[2018-08-23 13:52] LABS: ABG Base Excess 8.6 mmol/L; ABG HCO3 32 mmol/L (21-25); ABG Oxygen Saturation 99.8 % (94-97); ABG PCO2 46 mmHg (35-45); ABG PH 7.46 (7.35-7.45); ABG PO2 142 mmHg (83-108); ABG TCO2 34 mmol/L (19-24)
[2018-08-23] MEDS ORDERED: METOPROLOL TARTRATE 5 MG/5 ML VIAL IVP ONE (13:57)
[2018-08-23] MEDS: METOPROLOL TARTRATE 5 MG/5 ML VIAL IVP ONE ×2 (14:02→14:03)
[2018-08-23] MEDS: AMIODARONE 450 MG in DEXTROSE 5% IN WATER 250 ML IV SCH ×4 (14:02→21:24)
--- NOTE | 2018-08-23 14:16 | XR ---
EXAMINATION TYPE: XR chest 1V portable DATE OF EXAM: 08/23/2018 COMPARISON: 08/23/2018 HISTORY: Shortness of breath FINDINGS: There are bilateral pleural effusions with cardiomegaly and bibasilar infiltrate. There is a diffuse interstitial pattern. Calcifications overlying the left humeral neck noted and there severe arthropa thy of the left shoulder. Postsurgical changes. No pneumothorax. IMPRESSION: 1. Bilateral consolidation and pleural effusion with diffuse interstitial pattern correlate for pulmo nary edema. Findings are similar to the prior exam.
--- NOTE | 2018-08-23 14:51 | PN ---
PROGRESS NOTE DATE OF SERVICE: 08/23/2018 PRESENTING COMPLAINT: Short of breath. INTERVAL HISTORY: This patient, with a prior stroke, is pretty much in bed. She presented with acute pulmonary edema, responded well to IV Lasix. She is doing better. She is on nasal cannula. REVIEW OF SYSTEMS: Done for constitutional, cardiovascular, GI, pulmonary; relevant findings as above. CURRENT MEDICATIONS: Reviewed. They include IV Lasix 60 mg q.8 and IV amiodarone. PHYSICAL EXAMINATION: Temperature 98.4, pulse up to 120s, respiration 16, blood pressure 179/81, pulse ox 99% on 4 L. GENERAL APPEARANCE: Lying in bed. Awake. EYES: Pupils equal. Conjunctivae normal. NECK: JVD unable to assess. Mass not palpable. RESPIRATORY: Effort increased. LUNGS: Decreased breath sounds. CARDIOVASCULAR: Heart sounds irregular. No edema. ABDOMEN: Soft, nontender. Liver and spleen not palpable. NEUROLOGICAL: Speech is slow and staggered. Baseline power in the right arm and right leg is 3/5. Patient has got a right knee brace. INVESTIGATIONS: Telemetry shows atrial fibrillation. White count 11.1, hemoglobin 7.7, potassium 3.8, BUN 32, creatinine 1.29. Two-D echo shows moderate to severe mitral and tricuspid regurgitation and pulmonary hypertension. ASSESSMENT: 1. Acute flash pulmonary edema causing acute hypoxic respiratory failure, present on admission. 2. New-onset atrial fibrillation with rapid ventricular rate. 3. Recent aspiration pneumonia, right lower lobe, for which patient is completing a course of Augmentin. 4. Recent acute right ankle fracture with medial malleolus and fibular fracture secondary to fall, being managed with a brace; non-surgical management. 5. Acute ischemic stroke in the left middle cerebral artery in a right-handed patient with residual right-sided weakness and dysarthria from recent admission. 6. Coronary artery disease with history of coronary artery bypass. 7. Chronic obstructive pulmonary disease in an ex-smoker. 8. Multi-infarct dementia causing moderate cognitive impairment. 9. Diabetes mellitus, type 2, chronically on insulin. 10.Gastroesophageal reflux disease. 11.Hyperlipidemia. 12.Hypertensive urgency on presentation. 13.Primary osteoarthritis. 14.Chronic kidney disease, stage III, from nephrosclerosis. 15.Chronic low back pain from sciatica. 16.Chronic urine incontinence. 17.Generalized anxiety disorder not otherwise specified. 18.Moderate mitral and tricuspid regurgitation, non-rheumatic. 19.Severe secondary pulmonary hypertension. PLAN: Continue current medication and treatment plan. Cardiology was also consulted. Patient is on IV Lasix, was started on amiodarone drip. Prognosis is guarded. Will follow. GIULIA / ASIF: [id number] /
--- NOTE | 2018-08-23 14:52 | P.CNPUL ---
History of Present Illness Consult date: 08/23/18 Reason for consult: dyspnea, abnormal CXR/CT Chief complaint: Shortness of breath History of present illness: This is a 73-year-old female with history of multiple medical problems, known history of CVA involving the left middle cerebral artery, coronary artery disease and previous CABG, COPD and multi-infarct dementia, hypertension, chronic kidney disease stage III, generalized anxiety, osteoarthritis and hypertension. Patient had a recent admission to the hospital with mostly right ankle fracture with medial malleolus and fibular fracture managed conservatively by orthopedics. We did not see this patient on her last admission, but apparently she had questionable pneumonia/aspiration pneumonia involving the right lower lobe responded to antibiotics. Patient was brought in last night to the ER mostly with symptoms of increased shortness of breath, and she was noted to be in some sort of respiratory distress. Brought into the ER, blood pressure was over 10 systolic, her chest x-ray was suggestive of pulmonary edema. Treated initially with Lasix, she was also placed on BiPAP which was later transitioned to nasal cannula. One of our ICU nurses saw the patient in the ER, patient improved with diuretics and BiPAP, and when I was notified by the nurse taking care of the patient, explained to me that the patient was doing better, hence arrangements were made to transfer the patient to a monitor bed on selective. Patient was continued on diuretics, however rapid response team was called to the patient about 1 hour ago, and I responded with the team. Patient was noted to be in supraventricular tachycardia, she was extremely short of breath, she was given initially adenosine, and she was given a bolus of amiodarone. Patient was also given Ativan, morphine, Lasix, transferred to the intensive care unit, rate came down nicely, patient felt much per her, and she was placed on BiPAP. Shortly after eating placed on BiPAP , her ABG showed a pO2 of 142 pCO2 of 46 pH of 7.46. CBC showed hemoglobin of 7.7 WBC count of 11.1. Basic metabolic profile was relatively normal. Her bicarb is 35 BUN is 32 and creatinine is 1.29. ProBNP level was over 24th ounces, and she had slightly elevated troponin of 0.033. Her urinalysis is suggestive of urinary tract infection, however the patient is asymptomatic. Chest x-ray is consistent with congestive heart failure/pulmonary edema. During my evaluation, the patient was mostly complaining of shortness of breath , no headache, no blurred vision, no chest pain, no nausea, no vomiting, no abdominal pain, no melena, no hematemesis, no dysuria, no frequency no urgency. Review of Systems 14 point review of systems were obtained, please refer to pertinent positives in HPI, otherwise remaining systems are negative. 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 2008 CVA affected balance/coordination/short term memory/ caused chronic nausea and impulsiveness/ pt was trached and had a peg tube, IDDM type II, CKD stage III, problems with potassium levels, low back pain with sciatica, gout in hands/feet, skin cancer with removal, urinary incontinence and occasional diarrhea.uti's, recent rt tib/fib fx wears boot.pul edema History of Any Multi-Drug Resistant Organisms: None Reported Past Surgical History: Back Surgery, Coronary Bypass/CABG, Heart Catheterization , Hysterectomy, Orthopedic Surgery Additional Past Surgical History / Comment(s): Bilateral carotid endarectmy, CVA and had posterior craniotomy/brain surgery to remove blood clot/trach, peg since removed, 2011 CABG 4 vessel, 2 back surgeries, bilateral carpal tunnel releases, bilateral cataract removals/lens implants, colonoscopy with benign polyp, skin cancer removal.egd Past Anesthesia/Blood Transfusion Reactions: No Reported Reaction Smoking Status: Former smoker - Past Family History Mother Family Medical History: CVA/TIA Additional Family Medical History / Comment(s): Mother of a CVA at the age of 47yrs. Father Family Medical History: Myocardial Infarction (PA) Additional Family Medical History / Comment(s): Father of a PA around age 60yrs. Medications and Allergies Home Medications Medication Instructions Recorded Confirmed Type Ergocalciferol [Vitamin D2 50,000 unit PO Q14D 12/04/14 08/22/18 History (DRISDOL)] Melatonin 3 mg PO HS PRN 12/04/14 08/22/18 History Acetaminophen Tab [Tylenol] 1,000 mg PO Q6HR PRN 07/20/15 08/22/18 History Hypromellose [Artificial Tears] 1 drop BOTH EYES DAILY PRN 07/20/15 08/22/18 History Allopurinol [Zyloprim] 100 mg PO DAILY 06/01/17 08/22/18 History Calcitriol [Rocaltrol] 0.25 mcg PO MOTHSA 06/01/17 08/22/18 History Insulin Glargine,Hum.rec.anlog 30 unit SQ HS 06/01/17 08/22/18 History [Lantus Solostar] Ondansetron [Zofran] 4 mg PO AC-TID 06/01/17 08/22/18 History Triamcinolone 0.1% Cream [Kenalog 1 applicatio TOPICAL BID PRN 06/01/17 History 0.1% Cream] Atorvastatin [Lipitor] 40 mg PO HS tab 07/16/18 08/22/18 Rx Clopidogrel [Plavix] 75 mg PO DAILY tab 07/16/18 08/22/18 Rx PARoxetine [Paxil] 10 mg PO DAILY tab 07/16/18 08/22/18 Rx Staepumbbizyxc-EH-Wfxrwytmhg 1 tab PO DAILY 08/13/18 08/22/18 History [Folbic] Insulin Aspart [NovoLOG See Protocol SQ ACHS 08/13/18 08/22/18 History (formulary)] Sennosides-Docusate Sodium 1 tab PO DAILY 08/13/18 08/22/18 History [Senokot-S] Furosemide [Lasix] 40 mg PO DAILY tab 08/19/18 08/22/18 Rx Pantoprazole [Protonix] 40 mg PO AC-BID tablet.dr 08/19/18 08/22/18 Rx cloNIDine HCL [Catapres] 0.1 mg PO TID #0 tab 08/19/18 08/22/18 Rx clonazePAM [KlonoPIN] 0.5 mg PO TID@ #9 tab 08/19/18 08/22/18 Rx Amoxic-Pot Clav 875-125Mg 1 tab PO BID 08/22/18 08/22/18 History [Augmentin 875-125] Ipratropium-Albuterol Nebulize 3 ml INHALATION RT-TID 08/22/18 08/22/18 History [Duoneb 0.5 mg-3 mg/3 ml Soln] Pantoprazole [Protonix] 40 mg PO HS 08/22/18 08/22/18 History Allergies Allergy/AdvReac Type Severity Reaction Status Date / Time benztropine mesylate Allergy Unknown Verified 08/22/18 14:31 [From Cogentin] donepezil [From Aricept] Allergy Unknown Verified 08/22/18 14:31 metoclopramide HCl Allergy Unknown Verified 08/22/18 14:31 [From Reglan] prochlorperazine edisylate Allergy Unknown Verified 08/22/18 14:31 [From Compazine] prochlorperazine maleate Allergy Unknown Verified 08/22/18 14:31 [From Compazine] Physical Exam Vitals: Vital Signs Temp Pulse Pulse Resp BP BP Pulse Ox 08/23/18 14:10 96 10 L 170/83 100 08/23/18 14:00 125 H 13 201/100 99 08/23/18 13:50 146 H 136/100 100 08/23/18 13:46 122 H 136/100 100 08/23/18 13:32 178/80 08/23/18 13:23 200 H 136/96 86 L 08/23/18 12:00 123 H 16 225/99 95 08/23/18 10:58 16 08/23/18 08:00 89 16 196/88 96 08/23/18 07:19 74 17 182/79 100 08/23/18 06:00 76 17 179/81 99 08/23/18 05:00 80 18 175/79 99 08/23/18 04:00 98.4 F 72 19 149/56 99 08/23/18 02:00 76 18 168/76 98 08/23/18 01:00 74 18 145/64 98 08/23/18 00:00 98.4 F 74 16 148/67 98 08/22/18 23:00 66 18 134/62 97 08/22/18 22:00 82 20 167/79 97 08/22/18 21:00 90 22 157/72 96 08/22/18 20:30 84 23 165/74 96 08/22/18 20:00 86 24 158/60 97 08/22/18 19:30 97.9 F 84 25 H 165/73 97 08/22/18 19:00 85 19 165/78 98 08/22/18 18:00 96 18 165/78 98 08/22/18 17:30 85 17 175/78 99 08/22/18 17:00 100 19 169/70 98 08/22/18 16:32 98 20 177/78 98 08/22/18 15:56 90 20 171/78 99 08/22/18 15:32 101 H 22 192/82 98 08/22/18 15:00 108 H 20 196/88 98 Intake and Output 08/22/18 08/23/18 08/23/18 22:59 06:59 14:59 Intake Total 100.775 120 20 Output Total 1550 850 175 Balance -1449.225 -730 -155 Intake: IV 60 120 20 .9 60 120 20 Intake, IV Titration 40.775 Amount Nitroglycerin-D5w Pmx 50 40.775 mg In Dextrose/Water 1 250ml.bag @ 5 MCG/MIN 1.5 mls/hr IV .Q24H ONE Rx#: [id number] Output: Urine 1550 850 175 Other: Voiding Method Indwelling Catheter Indwelling Catheter Indwelling Catheter Weight 94.8 kg Physical Exam: Revealed a 73-year-old white female in moderate respiratory distress, anxious, Head: Atraumatic, normocephalic, HEENT:[Neck is supple.] [No neck masses.] [No thyromegaly.] Positive JVD, PERRLA, EOMI, pale conjunctiva is, no icterus. Chest: [Crackles and rhonchi bilaterally mostly at the bases. No chest wall tenderness..] Cardiac Exam: [Tachycardic, irregular rhythm, 2/6 systolic murmur throughout the precordium.] Abdomen: [Obese, Soft, nontender, no megaly, no rebound, no guarding, normal bowel sounds.] Extremities: [No clubbing, 1+ bipedal edema, no cyanosis.] Neurological Exam: [No focal neurologic deficit.] Alert oriented 3. Psychiatric: Anxious, intact mental status examination. Blunt affect. Skin: Good skin turgor, no erythema, no rashes, no ulcers. Lymphatics: No lymphadenopathy. Results - Laboratory Findings CBC and BMP: 08/23/18 05:13 08/23/18 11:45 ABG ABG pH 7.46 (7.35-7.45) H 08/23/18 13:50 ABG pCO2 46 mmHg (35-45) H 08/23/18 13:50 ABG pO2 142 mmHg (83-108) H 08/23/18 13:50 ABG O2 Saturation 99.8 % (94-97) H 08/23/18 13:50 PT/INR, D-dimer PT 10.2 sec (9.0-12.0) 08/22/18 10:27 INR 1.0 (<1.2) 08/22/18 10:27 Abnormal lab findings: Abnormal Labs 08/22/18 08/22/18 08/22/18 10:27 10:27 10:27 WBC 13.1 H RBC 3.26 L Hgb 8.3 L Hct 27.2 L MCHC 30.4 L RDW 16.8 H Neutrophils # 9.6 H Lymphocytes # Monocytes # 1.1 H APTT ABG pH ABG pCO2 ABG pO2 ABG HCO3 ABG Total CO2 ABG O2 Saturation Sodium 132 L Chloride 92 L Carbon Dioxide BUN 28 H Creatinine 1.22 H Glucose 220 H POC Glucose (mg/dL) AST 41 H Total Creatine Kinase 27 L Total Protein Albumin 3.0 L Urine Appearance Urine Protein Urine Glucose (UA) Urine Blood Ur Leukocyte Esterase Urine WBC Amorphous Sediment Urine Bacteria Hyaline Casts Urine Mucus 08/22/18 08/22/18 08/22/18 10:27 20:16 20:45 WBC RBC Hgb Hct MCHC RDW Neutrophils # Lymphocytes # Monocytes # APTT 21.4 L ABG pH ABG pCO2 ABG pO2 ABG HCO3 ABG Total CO2 ABG O2 Saturation Sodium Chloride Carbon Dioxide BUN Creatinine Glucose POC Glucose (mg/dL) 283 H AST Total Creatine Kinase Total Protein Albumin Urine Appearance Cloudy H Urine Protein 2+ H Urine Glucose (UA) 2+ H Urine Blood Small H Ur Leukocyte Esterase Moderate H Urine WBC 29 H Amorphous Sediment Rare H Urine Bacteria Moderate H Hyaline Casts 16 H Urine Mucus Rare H 08/22/18 08/23/18 08/23/18 21:37 02:00 04:45 WBC RBC Hgb Hct MCHC RDW Neutrophils # Lymphocytes # Monocytes # APTT ABG pH ABG pCO2 ABG pO2 ABG HCO3 ABG Total CO2 ABG O2 Saturation Sodium Chloride Carbon Dioxide BUN Creatinine Glucose POC Glucose (mg/dL) 254 H 197 H 178 H AST Total Creatine Kinase Total Protein Albumin Urine Appearance Urine Protein Urine Glucose (UA) Urine Blood Ur Leukocyte Esterase Urine WBC Amorphous Sediment Urine Bacteria Hyaline Casts Urine Mucus 08/23/18 08/23/18 08/23/18 05:13 05:13 12:02 WBC 11.1 H RBC 2.96 L Hgb 7.7 L Hct 24.8 L MCHC 30.9 L RDW 16.9 H Neutrophils # 9.3 H Lymphocytes # 0.6 L Monocytes # APTT ABG pH ABG pCO2 ABG pO2 ABG HCO3 ABG Total CO2 ABG O2 Saturation Sodium 135 L Chloride 93 L Carbon Dioxide 35 H BUN 32 H Creatinine 1.29 H Glucose 162 H POC Glucose (mg/dL) 201 H AST Total Creatine Kinase Total Protein 6.2 L Albumin 2.8 L Urine Appearance Urine Protein Urine Glucose (UA) Urine Blood Ur Leukocyte Esterase Urine WBC Amorphous Sediment Urine Bacteria Hyaline Casts Urine Mucus 08/23/18 08/23/18 08/23/18 13:24 13:39 13:50 WBC RBC Hgb Hct MCHC RDW Neutrophils # Lymphocytes # Monocytes # APTT ABG pH 7.46 H ABG pCO2 46 H ABG pO2 142 H ABG HCO3 32 H ABG Total CO2 34 H ABG O2 Saturation 99.8 H Sodium Chloride Carbon Dioxide BUN Creatinine Glucose POC Glucose (mg/dL) 207 H 234 H AST Total Creatine Kinase Total Protein Albumin Urine Appearance Urine Protein Urine Glucose (UA) Urine Blood Ur Leukocyte Esterase Urine WBC Amorphous Sediment Urine Bacteria Hyaline Casts Urine Mucus - Diagnostic Findings Chest x-ray: image reviewed (Chest x-ray is consistent with pulmonary edema) Assessment and Plan Assessment: Impression: 1 acute hypoxic respiratory failure secondary to acute pulmonary edema most likely secondary to atrial fibrillation/RVR. Suspect some component of LV dysfunction. 2 severe pulmonary hypertension as noted on the echocardiogram. 3 recent history of possible aspiration pneumonia 4 history of CVA involving the left middle cerebral artery with minimal residual right-sided weakness. 5 chronic obstructive pulmonary disease, severity of which is not clear. 6 type 2 diabetes 7 multiple infarct dementia 8 benign essential hypertension 9 chronic kidney disease stage III 10 generalized anxiety disorder. 11 heard without esophagitis 12 history of hyperlipidemia. 13 history of recent ankle fracture. Recommendation: Continue Lasix at 60 mg IV push every 8 hours. Continue amiodarone after a bolus was given when I attended to the patient as she was having profound shortness of breath, and supraventricular tachycardia was noted. Patient is to be seen by cardiology on consultation, she will be kept in the intensive care unit for now, I have made arrangements for the patient to transfer from a monitor bed on selective to the ICU. I came with the patient to the ICU, optimize her overall status, stabilize the patient. And orders were placed on the chart. Chest x-ray was reviewed. Labs were all reviewed. Prognosis is definitely guarded at this point. Time with Patient: Greater than 30
[2018-08-23 15:24] LABS: Hemoglobin A1C 6.6 % (4.0-6.0)
[2018-08-23] MEDS ORDERED: cloNIDine 0.1 MG/24HR PATCH TRANSDERM SCH (15:45)
[2018-08-23 16:47] LABS: Glucose,Whole Blood 146 mg/dL (75-99)
--- NOTE | 2018-08-23 17:34 | P.CRDCN ---
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 Patient had a recent admission to the hospital with mostly right ankle fracture with medial malleolus and fibular fracture managed conservatively by orthopedics. We did not see this patient on her last admission, but apparently she had questionable pneumonia/aspiration pneumonia involving the right lower lobe responded to antibiotics. Patient was brought in last night to the ER mostly with symptoms of increased shortness of breath, and she was noted to be in some sort of respiratory distress. Brought into the ER, her chest x-ray was suggestive of pulmonary edema. Treated initially with Lasix, she was also placed on BiPAP which was later transitioned to nasal cannula. She was initially to be admitted to ICU however her condition improved and she was admitted to selective care unit. Initially patient was doing fairly well. Upon my initial examination this morning, patient was sitting up in bed talking with family. She remained somewhat short of breath with wheezing but was very stable at the time. This afternoon and a team was called on the patient and was noted to be in likely in atrial fibrillation with very rapid ventricular response with a heart rate as high as 236. There was some aberrancy noted. The patient was given amiodarone bolus, Ativan, morphine and Lasix and transferred to the intensive care unit. She was placed on BiPAP. Heart rate improved the patient was noted to be quite hypertensive with a blood pressure of 200 systolic she was given IV Lopressor as she was nothing by mouth at the time due to BiPAP. Blood pressure then came down to 160 systolic. She was on clonidine 0.1 mg by mouth 3 times a day which she is unable to take at this time. She did have an echocardiogram that showed an ejection fraction of 45-50%. BNP was elevated at 24,000 and troponin was 0.033. 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 2008 CVA affected balance/coordination/short term memory/ caused chronic nausea and impulsiveness/ pt was trached and had a peg tube, IDDM type II, CKD stage III, problems with potassium levels, low back pain with sciatica, gout in hands/feet, skin cancer with removal, urinary incontinence and occasional diarrhea.uti's, recent rt tib/fib fx wears boot.pul edema History of Any Multi-Drug Resistant Organisms: None Reported Past Surgical History: Back Surgery, Coronary Bypass/CABG, Heart Catheterization , Hysterectomy, Orthopedic Surgery Additional Past Surgical History / Comment(s): Bilateral carotid endarectmy, CVA and had posterior craniotomy/brain surgery to remove blood clot/trach, peg since removed, 2011 CABG 4 vessel, 2 back surgeries, bilateral carpal tunnel releases, bilateral cataract removals/lens implants, colonoscopy with benign polyp, skin cancer removal.egd Past Anesthesia/Blood Transfusion Reactions: No Reported Reaction Smoking Status: Former smoker - Past Family History Mother Family Medical History: CVA/TIA Additional Family Medical History / Comment(s): Mother of a CVA at the age of 47yrs. Father Family Medical History: Myocardial Infarction (NE) Additional Family Medical History / Comment(s): Father of a NE around age 60yrs. Medications and Allergies Home Medications Medication Instructions Recorded Confirmed Type Ergocalciferol [Vitamin D2 50,000 unit PO Q14D 12/04/14 08/22/18 History (DRISDOL)] Melatonin 3 mg PO HS PRN 12/04/14 08/22/18 History Acetaminophen Tab [Tylenol] 1,000 mg PO Q6HR PRN 07/20/15 08/22/18 History Hypromellose [Artificial Tears] 1 drop BOTH EYES DAILY PRN 07/20/15 08/22/18 History Allopurinol [Zyloprim] 100 mg PO DAILY 06/01/17 08/22/18 History Calcitriol [Rocaltrol] 0.25 mcg PO MOTHSA 06/01/17 08/22/18 History Insulin Glargine,Hum.rec.anlog 30 unit SQ HS 06/01/17 08/22/18 History [Lantus Solostar] Ondansetron [Zofran] 4 mg PO AC-TID 06/01/17 08/22/18 History Triamcinolone 0.1% Cream [Kenalog 1 applicatio TOPICAL BID PRN 06/01/17 History 0.1% Cream] Atorvastatin [Lipitor] 40 mg PO HS tab 07/16/18 08/22/18 Rx Clopidogrel [Plavix] 75 mg PO DAILY tab 07/16/18 08/22/18 Rx PARoxetine [Paxil] 10 mg PO DAILY tab 07/16/18 08/22/18 Rx Fxkohrefcstavo-AM-Dwojrmilwj 1 tab PO DAILY 08/13/18 08/22/18 History [Folbic] Insulin Aspart [NovoLOG See Protocol SQ ACHS 08/13/18 08/22/18 History (formulary)] Sennosides-Docusate Sodium 1 tab PO DAILY 08/13/18 08/22/18 History [Senokot-S] Furosemide [Lasix] 40 mg PO DAILY tab 08/19/18 08/22/18 Rx Pantoprazole [Protonix] 40 mg PO AC-BID tablet. 08/19/18 08/22/18 Rx cloNIDine HCL [Catapres] 0.1 mg PO TID #0 tab 08/19/18 08/22/18 Rx clonazePAM [KlonoPIN] 0.5 mg PO TID@05,13,21 #9 tab 08/19/18 08/22/18 Rx Amoxic-Pot Clav 875-125Mg 1 tab PO BID 08/22/18 08/22/18 History [Augmentin 875-125] Ipratropium-Albuterol Nebulize 3 ml INHALATION RT-TID 08/22/18 08/22/18 History [Duoneb 0.5 mg-3 mg/3 ml Soln] Pantoprazole [Protonix] 40 mg PO HS 08/22/18 08/22/18 History Allergies Allergy/AdvReac Type Severity Reaction Status Date / Time benztropine mesylate Allergy Unknown Verified 08/22/18 14:31 [From Cogentin] donepezil [From Aricept] Allergy Unknown Verified 08/22/18 14:31 metoclopramide HCl Allergy Unknown Verified 08/22/18 14:31 [From Reglan] prochlorperazine edisylate Allergy Unknown Verified 08/22/18 14:31 [From Compazine] prochlorperazine maleate Allergy Unknown Verified 08/22/18 14:31 [From Compazine] Physical Exam Vitals: Vital Signs Temp Pulse Pulse Resp BP BP Pulse Ox 08/23/18 16:00 98.1 F 72 30 H 179/82 100 08/23/18 15:30 76 24 163/73 100 08/23/18 15:00 74 12 157/85 100 08/23/18 14:30 104 H 160/87 100 08/23/18 14:10 96 10 L 170/83 100 08/23/18 14:00 125 H 13 201/100 99 08/23/18 13:50 146 H 136/100 100 08/23/18 13:46 122 H 136/100 100 08/23/18 13:32 178/80 08/23/18 13:23 200 H 136/96 86 L 08/23/18 12:00 123 H 16 225/99 95 08/23/18 10:58 16 08/23/18 08:00 89 16 196/88 96 08/23/18 07:19 74 17 182/79 100 08/23/18 06:00 76 17 179/81 99 08/23/18 05:00 80 18 175/79 99 08/23/18 04:00 98.4 F 72 19 149/56 99 08/23/18 02:00 76 18 168/76 98 08/23/18 01:00 74 18 145/64 98 08/23/18 00:00 98.4 F 74 16 148/67 98 08/22/18 23:00 66 18 134/62 97 08/22/18 22:00 82 20 167/79 97 08/22/18 21:00 90 22 157/72 96 08/22/18 20:30 84 23 165/74 96 08/22/18 20:00 86 24 158/60 97 08/22/18 19:30 97.9 F 84 25 H 165/73 97 08/22/18 19:00 85 19 165/78 98 08/22/18 18:00 96 18 165/78 98 08/22/18 17:30 85 17 175/78 99 Intake and Output 08/23/18 08/23/18 08/23/18 06:59 14:59 22:59 Intake Total 120 20 106.6 Output Total 850 175 110 Balance -730 -155 -3.4 Intake: IV 120 20 106.6 .9 120 20 40 amiodarone 66.6 Output: Urine 850 175 110 Other: Voiding Method Indwelling Catheter Indwelling Catheter Weight 94.8 kg PHYSICAL EXAMINATION: HEENT: Head is atraumatic, normocephalic. Pupils equal, round. Neck is supple. There is no elevated jugular venous pressure. HEART EXAMINATION: Heart sounds irregular with tachycardia, S1 and S2 with a systolic murmur throughout the precordium. CHEST EXAMINATION: Lungs cohen initially expiratory wheezing throughout with diminished air entry upon second examination crackles and rhonchi were noted bilaterally to the bases. No chest wall tenderness is noted on palpation or with deep breathing. ABDOMEN: Soft, nontender. Bowel sounds are heard. No organomegaly noted. EXTREMITIES: 2+ peripheral pulses with no evidence of peripheral edema and no calf tenderness noted. NEUROLOGIC patient was initially noted to be awake alert and calm upon second examination, patient was noted to be anxious and restless.. . Results 08/23/18 05:13 08/23/18 11:45 Cardiac Enzymes 08/23/18 08/23/18 Range/Units 05:13 15:57 AST 33 (14-36) U/L Troponin I 0.220 H* (0.000-0.034) ng/mL CBC 08/23/18 Range/Units 05:13 WBC 11.1 H (3.8-10.6) k/uL RBC 2.96 L (3.80-5.40) m/uL Hgb 7.7 L (11.4-16.0) gm/dL Hct 24.8 L (34.0-46.0) % Plt Count 263 (150-450) k/uL Comprehensive Metabolic Panel 08/23/18 08/23/18 Range/Units 05:13 11:45 Sodium 135 L (137-145) mmol/L Potassium 3.8 4.0 (3.5-5.1) mmol/L Chloride 93 L (98-107) mmol/L Carbon Dioxide 35 H (22-30) mmol/L BUN 32 H (7-17) mg/dL Creatinine 1.29 H (0.52-1.04) mg/dL Glucose 162 H (74-99) mg/dL Calcium 8.4 (8.4-10.2) mg/dL AST 33 (14-36) U/L ALT 24 (9-52) U/L Alkaline Phosphatase 84 (38-126) U/L Total Protein 6.2 L (6.3-8.2) g/dL Albumin 2.8 L (3.5-5.0) g/dL Current Medications Generic Name Dose Route Start Last Admin Trade Name Freq PRN Reason Stop Dose Admin Acetaminophen 1,000 mg 08/22/18 13:41 Tylenol Tab PO Q6HR PRN Pain or Fever > 100.5 Allopurinol 100 mg 08/23/18 09:00 08/23/18 09:05 Zyloprim PO 100 mg DAILY CLAUDE Administration Artificial Tears 1 drops 08/22/18 19:14 Artificial Tear Drops BOTH EYES DAILY PRN DRY EYES Atorvastatin Calcium 40 mg 08/22/18 21:00 08/23/18 02:05 Lipitor PO 40 mg HS CLAUDE Administration Calcitriol 0.25 mcg 08/22/18 09:00 Rocaltrol PO MOTHSA CLAUDE Clonazepam 0.5 mg 08/22/18 21:00 08/23/18 12:40 Klonopin PO 0.5 mg TID@05,13,21 CLAUDE Administration Clonidine HCl 1 patch 08/23/18 15:45 08/23/18 16:34 Catapres-Tts 0.1mg Patch TRANSDERM 1 patch Q7D CLAUDE Administration Clopidogrel Bisulfate 75 mg 08/23/18 09:00 08/23/18 09:06 Plavix PO 75 mg DAILY CLAUDE Administration Folic Acid 1 each 08/23/18 09:00 08/23/18 09:08 Folbic PO 1 each DAILY CLAUDE Administration Furosemide 60 mg 08/22/18 19:00 08/23/18 16:24 Lasix IV 60 mg Q8HR CLAUDE Administration Amiodarone HCl 450 mg/ 259 mls @ 34.53 mls/hr 08/23/18 13:45 08/23/18 14:02 Dextrose/Water IV 08/24/18 13:41 1 mg/min .Q7H31M CLAUDE 34.53 mls/hr Administration Protocol 1 MG/MIN Insulin Aspart 0 unit 08/22/18 21:00 08/23/18 16:46 Novolog SQ 1 unit Q4H CLAUDE Administration Protocol Insulin Detemir 30 unit 08/22/18 21:00 08/22/18 21:43 Levemir SQ 30 unit HS CLAUDE Administration Melatonin 3 mg 08/22/18 19:14 Melatonin PO HS PRN Insomnia Miscellaneous Information 1 each 08/23/18 06:15 Potassium Per Protocol MISCELLANE DAILY PRN Per Protocol Protocol Naloxone HCl 0.2 mg 08/22/18 13:40 Narcan IV Q2M PRN Opioid Reversal Ondansetron HCl 4 mg 08/22/18 16:00 08/23/18 16:26 Zofran IVP 4 mg TID CLAUDE Administration Pantoprazole Sodium 40 mg 08/22/18 19:15 08/23/18 06:56 Protonix PO 40 mg AC-BID CLAUDE Administration Paroxetine HCl 10 mg 08/22/18 19:15 08/23/18 09:08 Paxil PO 10 mg DAILY CLAUDE Administration Senna/Docusate Sodium 1 each 08/23/18 09:00 08/23/18 12:27 Senokot-S PO Not Given DAILY [facility] Triamcinolone Acetonide 1 applic 08/22/18 19:14 Kenalog TOPICAL BID PRN Skin Irritation Intake and Output 08/23/18 08/23/18 08/23/18 06:59 14:59 22:59 Intake Total 120 20 106.6 Output Total 850 175 110 Balance -730 -155 -3.4 Intake: IV 120 20 106.6 .9 120 20 40 amiodarone 66.6 Output: Urine 850 175 110 Other: Voiding Method Indwelling Catheter Indwelling Catheter Weight 94.8 kg 08/23/18 05:13 08/23/18 11:45 Assessment and Plan Assessment: #1 acute hypoxic respiratory failure secondary to acute pulmonary edema most likely secondary to atrial fibrillation with rapid ventricular response #2 acute on chronic diastolic congestive heart failure #3 recent history of possible aspiration pneumonia #4 paroxysmal atrial fibrillation with rapid ventricular response #5 COPD exacerbation #6 dementia #7 hypertension #8 chronic kidney disease Plan: From cardiology's perspective, continue Lasix 60 mg IV push every 8 hours. Continue amiodarone drip at this time. We will start the patient on Catapres patch for better blood pressure control as the patient is unable to take oral medications at this time. Continue to monitor the patient closely in ICU. Awaiting further troponins. Further recommendations to follow. [employer] note has been reviewed, I agree with a documented findings and plan of care. Patient was seen and examined.
--- NOTE | 2018-08-23 18:01 | P.PN ---
Subjective Progress Note Date: 08/23/18 Patient developed atrial fibrillation with rapid ventricular response. Patient was transferred to intensive care unit. Patient was initiated on IV amiodarone. She is also given IV Lasix. Patient is put on Catapres patch. Patient responded well to the treatment. She converted back to sinus rhythm. She is diuresing well. We'll continue current medical therapy. Final impression #1. Atypical fibrillation with rapid ventricular response #2. CHF and pulmonary edema. Objective - Vital Signs Vital signs: Vital Signs Temp 98.1 F 08/23/18 16:00 Pulse 72 08/23/18 16:00 Resp 30 H 08/23/18 16:00 BP 179/82 08/23/18 16:00 Pulse Ox 100 08/23/18 16:00 Intake & Output 08/22/18 08/23/18 08/23/18 18:59 06:59 18:59 Intake Total 5.15 220.775 126.6 Output Total 100 2400 285 Balance -94.85 -2179.225 -158.4 Weight 90.718 kg 94.8 kg Intake: IV 180 126.6 .9 180 60 amiodarone 66.6 Intake, IV Titration 5.15 40.775 Amount Nitroglycerin-D5w Pmx 50 5.15 40.775 mg In Dextrose/Water 1 250ml.bag @ 5 MCG/MIN 1.5 mls/hr IV .Q24H ONE Rx#: [id number] Output: Urine 100 2400 285 Uretheral ([place]) 100 Other: Voiding Method Indwelling Catheter Indwelling Catheter Indwelling Catheter - Labs CBC & Chem 7: 08/23/18 05:13 08/23/18 11:45 Labs: Abnormal Lab Results - Last 24 Hours (Table) 08/22/18 08/22/18 08/22/18 Range/Units 20:16 20:45 21:37 WBC (3.8-10.6) k/uL RBC (3.80-5.40) m/uL Hgb (11.4-16.0) gm/dL Hct (34.0-46.0) % MCHC (31.0-37.0) g/dL RDW (11.5-15.5) % Neutrophils # (1.3-7.7) k/uL Lymphocytes # (1.0-4.8) k/uL ABG pH (7.35-7.45) ABG pCO2 (35-45) mmHg ABG pO2 (83-108) mmHg ABG HCO3 (21-25) mmol/L ABG Total CO2 (19-24) mmol/L ABG O2 Saturation (94-97) % Sodium (137-145) mmol/L Chloride (98-107) mmol/L Carbon Dioxide (22-30) mmol/L BUN (7-17) mg/dL Creatinine (0.52-1.04) mg/dL Glucose (74-99) mg/dL POC Glucose (mg/dL) 283 H 254 H (75-99) mg/dL Hemoglobin A1c (4.0-6.0) % Troponin I (0.000-0.034) ng/mL Total Protein (6.3-8.2) g/dL Albumin (3.5-5.0) g/dL Urine Appearance Cloudy H (Clear) Urine Protein 2+ H (Negative) Urine Glucose (UA) 2+ H (Negative) Urine Blood Small H (Negative) Ur Leukocyte Esterase Moderate H (Negative) Urine WBC 29 H (0-5) /hpf Amorphous Sediment Rare H (None) /hpf Urine Bacteria Moderate H (None) /hpf Hyaline Casts 16 H (0-2) /lpf Urine Mucus Rare H (None) /hpf 08/23/18 08/23/18 08/23/18 Range/Units 02:00 04:45 05:13 WBC 11.1 H (3.8-10.6) k/uL RBC 2.96 L (3.80-5.40) m/uL Hgb 7.7 L (11.4-16.0) gm/dL Hct 24.8 L (34.0-46.0) % MCHC 30.9 L (31.0-37.0) g/dL RDW 16.9 H (11.5-15.5) % Neutrophils # 9.3 H (1.3-7.7) k/uL Lymphocytes # 0.6 L (1.0-4.8) k/uL ABG pH (7.35-7.45) ABG pCO2 (35-45) mmHg ABG pO2 (83-108) mmHg ABG HCO3 (21-25) mmol/L ABG Total CO2 (19-24) mmol/L ABG O2 Saturation (94-97) % Sodium (137-145) mmol/L Chloride (98-107) mmol/L Carbon Dioxide (22-30) mmol/L BUN (7-17) mg/dL Creatinine (0.52-1.04) mg/dL Glucose (74-99) mg/dL POC Glucose (mg/dL) 197 H 178 H (75-99) mg/dL Hemoglobin A1c (4.0-6.0) % Troponin I (0.000-0.034) ng/mL Total Protein (6.3-8.2) g/dL Albumin (3.5-5.0) g/dL Urine Appearance (Clear) Urine Protein (Negative) Urine Glucose (UA) (Negative) Urine Blood (Negative) Ur Leukocyte Esterase (Negative) Urine WBC (0-5) /hpf Amorphous Sediment (None) /hpf Urine Bacteria (None) /hpf Hyaline Casts (0-2) /lpf Urine Mucus (None) /hpf 08/23/18 08/23/18 08/23/18 Range/Units 05:13 05:13 12:02 WBC (3.8-10.6) k/uL RBC (3.80-5.40) m/uL Hgb (11.4-16.0) gm/dL Hct (34.0-46.0) % MCHC (31.0-37.0) g/dL RDW (11.5-15.5) % Neutrophils # (1.3-7.7) k/uL Lymphocytes # (1.0-4.8) k/uL ABG pH (7.35-7.45) ABG pCO2 (35-45) mmHg ABG pO2 (83-108) mmHg ABG HCO3 (21-25) mmol/L ABG Total CO2 (19-24) mmol/L ABG O2 Saturation (94-97) % Sodium 135 L (137-145) mmol/L Chloride 93 L (98-107) mmol/L Carbon Dioxide 35 H (22-30) mmol/L BUN 32 H (7-17) mg/dL Creatinine 1.29 H (0.52-1.04) mg/dL Glucose 162 H (74-99) mg/dL POC Glucose (mg/dL) 201 H (75-99) mg/dL Hemoglobin A1c 6.6 H (4.0-6.0) % Troponin I (0.000-0.034) ng/mL Total Protein 6.2 L (6.3-8.2) g/dL Albumin 2.8 L (3.5-5.0) g/dL Urine Appearance (Clear) Urine Protein (Negative) Urine Glucose (UA) (Negative) Urine Blood (Negative) Ur Leukocyte Esterase (Negative) Urine WBC (0-5) /hpf Amorphous Sediment (None) /hpf Urine Bacteria (None) /hpf Hyaline Casts (0-2) /lpf Urine Mucus (None) /hpf 08/23/18 08/23/18 08/23/18 Range/Units 13:24 13:39 13:50 WBC (3.8-10.6) k/uL RBC (3.80-5.40) m/uL Hgb (11.4-16.0) gm/dL Hct (34.0-46.0) % MCHC (31.0-37.0) g/dL RDW (11.5-15.5) % Neutrophils # (1.3-7.7) k/uL Lymphocytes # (1.0-4.8) k/uL ABG pH 7.46 H (7.35-7.45) ABG pCO2 46 H (35-45) mmHg ABG pO2 142 H (83-108) mmHg ABG HCO3 32 H (21-25) mmol/L ABG Total CO2 34 H (19-24) mmol/L ABG O2 Saturation 99.8 H (94-97) % Sodium (137-145) mmol/L Chloride (98-107) mmol/L Carbon Dioxide (22-30) mmol/L BUN (7-17) mg/dL Creatinine (0.52-1.04) mg/dL Glucose (74-99) mg/dL POC Glucose (mg/dL) 207 H 234 H (75-99) mg/dL Hemoglobin A1c (4.0-6.0) % Troponin I (0.000-0.034) ng/mL Total Protein (6.3-8.2) g/dL Albumin (3.5-5.0) g/dL Urine Appearance (Clear) Urine Protein (Negative) Urine Glucose (UA) (Negative) Urine Blood (Negative) Ur Leukocyte Esterase (Negative) Urine WBC (0-5) /hpf Amorphous Sediment (None) /hpf Urine Bacteria (None) /hpf Hyaline Casts (0-2) /lpf Urine Mucus (None) /hpf 08/23/18 08/23/18 Range/Units 15:57 16:45 WBC (3.8-10.6) k/uL RBC (3.80-5.40) m/uL Hgb (11.4-16.0) gm/dL Hct (34.0-46.0) % MCHC (31.0-37.0) g/dL RDW (11.5-15.5) % Neutrophils # (1.3-7.7) k/uL Lymphocytes # (1.0-4.8) k/uL ABG pH (7.35-7.45) ABG pCO2 (35-45) mmHg ABG pO2 (83-108) mmHg ABG HCO3 (21-25) mmol/L ABG Total CO2 (19-24) mmol/L ABG O2 Saturation (94-97) % Sodium (137-145) mmol/L Chloride (98-107) mmol/L Carbon Dioxide (22-30) mmol/L BUN (7-17) mg/dL Creatinine (0.52-1.04) mg/dL Glucose (74-99) mg/dL POC Glucose (mg/dL) 146 H (75-99) mg/dL Hemoglobin A1c (4.0-6.0) % Troponin I 0.220 H* (0.000-0.034) ng/mL Total Protein (6.3-8.2) g/dL Albumin (3.5-5.0) g/dL Urine Appearance (Clear) Urine Protein (Negative) Urine Glucose (UA) (Negative) Urine Blood (Negative) Ur Leukocyte Esterase (Negative) Urine WBC (0-5) /hpf Amorphous Sediment (None) /hpf Urine Bacteria (None) /hpf Hyaline Casts (0-2) /lpf Urine Mucus (None) /hpf Microbiology - Last 24 Hours (Table) 08/22/18 10:27 Blood Culture - Preliminary Blood No Growth after 24 hours
[2018-08-23 20:22] LABS: Glucose,Whole Blood 152 mg/dL (75-99)
[2018-08-23] MEDS: INSULIN DETEMIR 100 UNIT/ML 10 ML VIAL SQ SCH (21:25)
[2018-08-23] MEDS: ENALAPRILAT 1.25 MG/ML 1 ML VIAL IVP PRN (22:11)
[2018-08-23 23:05] LABS: Calcium 8.1 mg/dL (8.4-10.2); Magnesium 1.9 mg/dL (1.6-2.3); Phosphorus 3.7 mg/dL (2.5-4.5); Potassium 3.6 mmol/L (3.5-5.1)
[2018-08-23 23:41] LABS: Glucose,Whole Blood 142 mg/dL (75-99)
[2018-08-23] MEDS ORDERED: NITROGLYCERIN-D5W PMX 50 MG in DEXTROSE/WATER 1 250ML.BAG IV SCH (23:45)
[2018-08-24] MEDS ORDERED: MAGNESIUM SULFATE-D5W PMX 1 GM in DEXTROSE/WATER 1 100ML.BAG IVPB ONE (00:12)
[2018-08-24] MEDS ORDERED: POTASSIUM CHLORIDE ER 20 MEQ TAB.ER PO STA (00:12)
[2018-08-24] MEDS: HEPARIN SOD,PORK IN 0.45% NACL 25,000 UNIT in 0.45% NACL 1 500ML.BAG IV SCH ×2 (00:31→22:24)
[2018-08-24] MEDS: SODIUM CHLORIDE 0.9% 1,000 ML IV SCH ×2 (01:04→15:41)
[2018-08-24] MEDS: FUROSEMIDE 10 MG/ML 10 ML VIAL IV SCH ×3 (01:05→15:40)
[2018-08-24 01:17] LABS: Glucose,Whole Blood 122 mg/dL (75-99)
[2018-08-24] MEDS: INSULIN ASPART 100 UNIT/ML 1 ML 10 ML VIAL SQ SCH ×6 (01:39→20:59)
[2018-08-24 03:35] LABS: Glucose,Whole Blood 102 mg/dL (75-99)
[2018-08-24] MEDS: AMIODARONE 450 MG in DEXTROSE 5% IN WATER 250 ML IV SCH ×4 (05:24→12:18)
[2018-08-24 05:47] LABS: Magnesium 1.9 mg/dL (1.6-2.3); Phosphorus 3.3 mg/dL (2.5-4.5); Potassium 3.7 mmol/L (3.5-5.1)
[2018-08-24 05:50] LABS: Anisocytosis Slight; Basophils % (A) 0 %; Eosinophils % (A) 0 %; HCT 23.6 % (34.0-46.0); Hypochromasia Marked; Lymphocytes # (A) 1.9 k/uL (1.0-4.8); Lymphocytes % (A) 11 %; MCH 24.9 pg (25.0-35.0); MCHC 29.8 g/dL (31.0-37.0); MCV 83.8 fL (80.0-100.0); Mean Platelet Volume 7.3; Monocytes # (A) 1.5 k/uL (0-1.0); Monocytes % (A) 9 %; Neutrophils # (A) 12.9 k/uL (1.3-7.7); Neutrophils % (A) 75 %; Platelet Count 362 k/uL (150-450); Poikilocytosis Moderate; RBC 2.82 m/uL (3.80-5.40); WBC 17.2 k/uL (3.8-10.6)
[2018-08-24] MEDS: clonazePAM 0.5 MG TAB PO SCH ×3 (05:50→19:54)
[2018-08-24] MEDS: PANTOPRAZOLE 40 MG TABLET PO SCH ×2 (06:32→17:26)
[2018-08-24] MEDS: HEPARIN SODIUM,PORCINE 5,000 UNIT/ML 1 ML VIAL IV PRN (06:40)
--- NOTE | 2018-08-24 07:04 | XR ---
EXAMINATION TYPE: XR chest 1V DATE OF EXAM: 08/24/2018 HISTORY: pulm edema. REFERENCE: Previous study dated 08/23/2018. FINDINGS: There has been a midline sternotomy. Heart size upper limits of normal. There is bibasilar airspace disease. There are small, bilateral ef fusions. The overall appearance is similar to previous. IMPRESSION: NO SIGNIFICANT INTERVAL CHANGE IN THE APPEARANCE OF THE CHEST.
[2018-08-24] MEDS: ONDANSETRON 4 MG/2 ML VIAL IVP SCH ×3 (09:13→20:59)
[2018-08-24] MEDS: CYANOCOBALAMIN-FA-PYRIDOXINE 1 EACH TAB PO SCH (09:25)
[2018-08-24] MEDS: ALLOPURINOL 100 MG TAB PO SCH (09:25)
[2018-08-24] MEDS: SENNOSIDES-DOCUSATE SODIUM 1 EACH TAB PO SCH (09:25)
[2018-08-24] MEDS: CALCITRIOL 0.25 MCG CAP PO SCH (09:25)
[2018-08-24] MEDS: CLOPIDOGREL 75 MG TAB PO SCH (09:25)
[2018-08-24] MEDS: PARoxetine 10 MG TAB PO SCH (09:25)
--- NOTE | 2018-08-24 12:08 | P.PN ---
Subjective Progress Note Date: 08/24/18 Principal diagnosis: Acute hypoxic respiratory failure secondary to acute pulmonary edema secondary to atrial fibrillation/RVR and diastolic dysfunction. 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 Patient had a recent admission to the hospital with mostly right ankle fracture with medial malleolus and fibular fracture managed conservatively by orthopedics. We did not see this patient on her last admission, but apparently she had questionable pneumonia/aspiration pneumonia involving the right lower lobe responded to antibiotics. Patient was brought in last night to the ER mostly with symptoms of increased shortness of breath, and she was noted to be in some sort of respiratory distress. Brought into the ER, blood pressure was over 10 systolic, her chest x-ray was suggestive of pulmonary edema. Treated initially with Lasix, she was also placed on BiPAP which was later transitioned to nasal cannula. One of our ICU nurses saw the patient in the ER, patient improved with diuretics and BiPAP, and when I was notified by the nurse taking care of the patient, explained to me that the patient was doing better, hence arrangements were made to transfer the patient to a monitor bed on selective. Patient was continued on diuretics, however rapid response team was called to the patient about 1 hour ago, and I responded with the team. Patient was noted to be in supraventricular tachycardia, she was extremely short of breath, she was given initially adenosine, and she was given a bolus of amiodarone. Patient was also given Ativan, morphine, Lasix, transferred to the intensive care unit, rate came down nicely, patient felt much per her, and she was placed on BiPAP. Shortly after eating placed on BiPAP , her ABG showed a pO2 of 142 pCO2 of 46 pH of 7.46. CBC showed hemoglobin of 7.7 WBC count of 11.1. Basic metabolic profile was relatively normal. Her bicarb is 35 BUN is 32 and creatinine is 1.29. [place] [id number], and she had slightly elevated troponin of 0.033. Her urinalysis is suggestive of urinary tract infection, however the patient is asymptomatic. Chest x-ray is consistent with congestive heart failure/pulmonary edema. During my evaluation, the patient was mostly complaining of shortness of breath, no headache, no blurred vision, no chest pain, no nausea, no vomiting, no abdominal pain, no melena, no hematemesis, no dysuria, no frequency no urgency. Reevaluated today on 08/24/2018, patient remains on BiPAP, however I plan to switch her to a nasal cannula today. She seems more comfortable, she is now in normal sinus rhythm, remains on amiodarone drip, remains on diuretics, started on nitroglycerin drip by cardiology because she had some chest pain last night. IV fluids placed at [facility], labs were reviewed, creatinine is up a bit at 1.57. Hemoglobin is 7.0 WBC count is 17.2. Patient is also on heparin drip, no clear- cut evidence of active bleeding anywhere. Troponin was noted to be 0.174 today that is being addressed by cardiology on the case. Chest x-ray continues to show evidence of pulmonary edema. Slight improvement compared to the chest x- ray yesterday Objective - Vital Signs Vital signs: Vital Signs Temp 97.8 F 08/24/18 09:00 Pulse 71 08/24/18 11:00 Resp 26 H 08/24/18 11:00 BP 155/60 08/24/18 11:00 Pulse Ox 99 08/24/18 11:00 Intake & Output 08/23/18 08/24/18 08/24/18 18:59 06:59 18:59 Intake Total 233.2 1272.787 412.7 Output Total 360 480 220 Balance -126.8 792.787 192.7 Weight 91.4 kg Intake: IV 233.2 902.5 86.7 .9 100 550 70 Heparin Sod,Pork in 0.45% 18.9 NaCl 25,000 unit In 0.45 % NaCl 1 500ml.bag @ 10 UNITS/KG/HR 18.96 mls/hr IV .Q24H [facility] Rx#: [id number] Magnesium Sulfate-D5w Pmx 100 1 gm In Dextrose/Water 1 100ml.bag @ 100 mls/hr IVPB ONCE ONE Rx#: [id number] amiodarone 133.2 233.6 16.7 Intake, IV Titration 370.287 86.0 Amount Amiodarone 450 mg In 254.947 Dextrose 5% in Water 250 ml @ 1 MG/MIN 34.53 mls/ hr IV .Q7H31M [facility] Rx#: [id number] Heparin Sod,Pork in 0.45% 115.34 NaCl 25,000 unit In 0.45 % NaCl 1 500ml.bag @ 10 UNITS/KG/HR 18.96 mls/hr IV .Q24H [facility] Rx#: [id number] Nitroglycerin-D5w Pmx 50 6.0 mg In Dextrose/Water 1 250ml.bag @ 5 MCG/MIN 1.5 mls/hr IV .Q24H [facility] Rx#: [id number] Sodium Chloride 0.9% 1, 80 000 ml @ 20 mls/hr IV . Q24H [facility] Rx#:[id number] Oral 240 Output: Urine 360 480 220 Other: Voiding Method Indwelling Catheter Indwelling Catheter Indwelling Catheter - Exam Physical Exam: Revealed a 73-year-old white female in no distress, presently on BiPAP, and I plan to switch her to a nasal cannula. Head: Atraumatic, normocephalic, HEENT:[Neck is supple.] [No neck masses.] [No thyromegaly.] Positive JVD, PERRLA, EOMI, pale conjunctiva is, no icterus. Chest: [Minimal crackles Crackles and rhonchi bilaterally mostly at the bases. No chest wall tenderness..] Cardiac Exam: [Normal S1 and S2, 2/6 systolic murmur thought the precordium.] Abdomen: [Obese, Soft, nontender, no megaly, no rebound, no guarding, normal bowel sounds.] Extremities: [No clubbing, 1+ bipedal edema, no cyanosis.] Neurological Exam: [No focal neurologic deficit.] Alert oriented 3. Psychiatric: Anxious, intact mental status examination. Blunt affect. Skin: Good skin turgor, no erythema, no rashes, no ulcers. Lymphatics: No lymphadenopathy. - Labs CBC & Chem 7: 08/24/18 05:11 08/24/18 05:11 Labs: Abnormal Lab Results - Last 24 Hours (Table) 08/23/18 08/23/18 08/23/18 Range/Units 05:13 12:02 13:24 WBC (3.8-10.6) k/uL RBC (3.80-5.40) m/uL Hgb (11.4-16.0) gm/dL Hct (34.0-46.0) % MCH (25.0-35.0) pg MCHC (31.0-37.0) g/dL RDW (11.5-15.5) % Neutrophils # (1.3-7.7) k/uL Monocytes # (0-1.0) k/uL APTT (22.0-30.0) sec ABG pH (7.35-7.45) ABG pCO2 (35-45) mmHg ABG pO2 (83-108) mmHg ABG HCO3 (21-25) mmol/L ABG Total CO2 (19-24) mmol/L ABG O2 Saturation (94-97) % Sodium (137-145) mmol/L Chloride (98-107) mmol/L Carbon Dioxide (22-30) mmol/L BUN (7-17) mg/dL Creatinine (0.52-1.04) mg/dL Glucose (74-99) mg/dL POC Glucose (mg/dL) 201 H 207 H (75-99) mg/dL Hemoglobin A1c 6.6 H (4.0-6.0) % Calcium (8.4-10.2) mg/dL Troponin I (0.000-0.034) ng/mL 08/23/18 08/23/18 08/23/18 Range/Units 13:39 13:50 15:57 WBC (3.8-10.6) k/uL RBC (3.80-5.40) m/uL Hgb (11.4-16.0) gm/dL Hct (34.0-46.0) % MCH (25.0-35.0) pg MCHC (31.0-37.0) g/dL RDW (11.5-15.5) % Neutrophils # (1.3-7.7) k/uL Monocytes # (0-1.0) k/uL APTT (22.0-30.0) sec ABG pH 7.46 H (7.35-7.45) ABG pCO2 46 H (35-45) mmHg ABG pO2 142 H (83-108) mmHg ABG HCO3 32 H (21-25) mmol/L ABG Total CO2 34 H (19-24) mmol/L ABG O2 Saturation 99.8 H (94-97) % Sodium (137-145) mmol/L Chloride (98-107) mmol/L Carbon Dioxide (22-30) mmol/L BUN (7-17) mg/dL Creatinine (0.52-1.04) mg/dL Glucose (74-99) mg/dL POC Glucose (mg/dL) 234 H (75-99) mg/dL Hemoglobin A1c (4.0-6.0) % Calcium (8.4-10.2) mg/dL Troponin I 0.220 H* (0.000-0.034) ng/mL 08/23/18 08/23/18 08/23/18 Range/Units 16:45 20:20 20:52 WBC (3.8-10.6) k/uL RBC (3.80-5.40) m/uL Hgb (11.4-16.0) gm/dL Hct (34.0-46.0) % MCH (25.0-35.0) pg MCHC (31.0-37.0) g/dL RDW (11.5-15.5) % Neutrophils # (1.3-7.7) k/uL Monocytes # (0-1.0) k/uL APTT (22.0-30.0) sec ABG pH (7.35-7.45) ABG pCO2 (35-45) mmHg ABG pO2 (83-108) mmHg ABG HCO3 (21-25) mmol/L ABG Total CO2 (19-24) mmol/L ABG O2 Saturation (94-97) % Sodium (137-145) mmol/L Chloride (98-107) mmol/L Carbon Dioxide (22-30) mmol/L BUN (7-17) mg/dL Creatinine (0.52-1.04) mg/dL Glucose (74-99) mg/dL POC Glucose (mg/dL) 146 H 152 H (75-99) mg/dL Hemoglobin A1c (4.0-6.0) % Calcium (8.4-10.2) mg/dL Troponin I 0.211 H* (0.000-0.034) ng/mL 08/23/18 08/23/18 08/24/18 Range/Units 22:36 23:38 00:05 WBC (3.8-10.6) k/uL RBC (3.80-5.40) m/uL Hgb (11.4-16.0) gm/dL Hct (34.0-46.0) % MCH (25.0-35.0) pg MCHC (31.0-37.0) g/dL RDW (11.5-15.5) % Neutrophils # (1.3-7.7) k/uL Monocytes # (0-1.0) k/uL APTT 21.6 L (22.0-30.0) sec ABG pH (7.35-7.45) ABG pCO2 (35-45) mmHg ABG pO2 (83-108) mmHg ABG HCO3 (21-25) mmol/L ABG Total CO2 (19-24) mmol/L ABG O2 Saturation (94-97) % Sodium 133 L (137-145) mmol/L Chloride 92 L (98-107) mmol/L Carbon Dioxide 31 H (22-30) mmol/L BUN 38 H (7-17) mg/dL Creatinine 1.52 H (0.52-1.04) mg/dL Glucose 128 H (74-99) mg/dL POC Glucose (mg/dL) 142 H (75-99) mg/dL Hemoglobin A1c (4.0-6.0) % Calcium 8.1 L (8.4-10.2) mg/dL Troponin I (0.000-0.034) ng/mL 08/24/18 08/24/18 08/24/18 Range/Units 01:14 03:33 05:11 WBC (3.8-10.6) k/uL RBC (3.80-5.40) m/uL Hgb (11.4-16.0) gm/dL Hct (34.0-46.0) % MCH (25.0-35.0) pg MCHC (31.0-37.0) g/dL RDW (11.5-15.5) % Neutrophils # (1.3-7.7) k/uL Monocytes # (0-1.0) k/uL APTT (22.0-30.0) sec ABG pH (7.35-7.45) ABG pCO2 (35-45) mmHg ABG pO2 (83-108) mmHg ABG HCO3 (21-25) mmol/L ABG Total CO2 (19-24) mmol/L ABG O2 Saturation (94-97) % Sodium 132 L (137-145) mmol/L Chloride 93 L (98-107) mmol/L Carbon Dioxide 32 H (22-30) mmol/L BUN 39 H (7-17) mg/dL Creatinine 1.57 H (0.52-1.04) mg/dL Glucose (74-99) mg/dL POC Glucose (mg/dL) 122 H 102 H (75-99) mg/dL Hemoglobin A1c (4.0-6.0) % Calcium 8.0 L (8.4-10.2) mg/dL Troponin I (0.000-0.034) ng/mL 08/24/18 08/24/18 08/24/18 Range/Units 05:11 05:11 05:11 WBC 17.2 H (3.8-10.6) k/uL RBC 2.82 L (3.80-5.40) m/uL Hgb 7.0 L (11.4-16.0) gm/dL Hct 23.6 L (34.0-46.0) % MCH 24.9 L (25.0-35.0) pg MCHC 29.8 L (31.0-37.0) g/dL RDW 17.0 H (11.5-15.5) % Neutrophils # 12.9 H (1.3-7.7) k/uL Monocytes # 1.5 H (0-1.0) k/uL APTT 32.6 H (22.0-30.0) sec ABG pH (7.35-7.45) ABG pCO2 (35-45) mmHg ABG pO2 (83-108) mmHg ABG HCO3 (21-25) mmol/L ABG Total CO2 (19-24) mmol/L ABG O2 Saturation (94-97) % Sodium (137-145) mmol/L Chloride (98-107) mmol/L Carbon Dioxide (22-30) mmol/L BUN (7-17) mg/dL Creatinine (0.52-1.04) mg/dL Glucose (74-99) mg/dL POC Glucose (mg/dL) (75-99) mg/dL Hemoglobin A1c (4.0-6.0) % Calcium (8.4-10.2) mg/dL Troponin I 0.174 H* (0.000-0.034) ng/mL Microbiology - Last 24 Hours (Table) 08/22/18 10:27 Blood Culture - Preliminary Blood No Growth after 24 hours Assessment and Plan Assessment: Impression: 1 acute hypoxic respiratory failure secondary to acute pulmonary edema most likely secondary to atrial fibrillation/RVR. Suspect diastolic echocardiogram report was noted. 2 severe pulmonary hypertension as noted on the echocardiogram. 3 recent history of possible aspiration pneumonia, this is very questionable. possibility of chronic congestive heart failure is very likely 4 history of CVA involving the left middle cerebral artery with minimal residual right-sided weakness. 5 chronic obstructive pulmonary disease, severity of which is not clear. 6 type 2 diabetes 7 multiple infarct dementia 8 benign essential hypertension 9 chronic kidney disease stage III 10 generalized anxiety disorder. 11 GERD without esophagitis 12 history of hyperlipidemia. 13 history of recent ankle fracture. Recommendation: Continue Lasix, heparin drip, amiodarone drip, nitroglycerin drip. Continue to monitor in the ICU, may even consider a Lasix drip. Patient remains quite ill, her overall pulmonary status is marginal mostly because of her underlying cardiac history. We'll continue to monitor in the ICU, will advance her diet today, and will follow closely. Time with Patient: Less than 30
[2018-08-24 12:18] LABS: Glucose,Whole Blood 204 mg/dL (75-99)
--- NOTE | 2018-08-24 12:42 | P.PN ---
Subjective Progress Note Date: 08/24/18 Principal diagnosis: Acute hypoxic respiratory failure This is a pleasant 73-year-old female patient with known history of coronary artery disease and status post CABG, chronic obstructive pulmonary disease, chronic kidney disease, paroxysmal atrial fibrillation, and history of stroke, was admitted to the intensive care unit with congestive heart failure secondary to diastole dysfunction as well as COPD exacerbation. She underwent an echocardiogram and that revealed normal LV function with hypertensive heart disease, moderate MR, moderate TR, and severe pulmonary hypertension. The cardiac enzymes are slightly elevated. The hemoglobin is only 7. On follow-up with her today, shortness of breath is better she did have some chest discomfort last night and I did start the patient on Nitrol IV. She has been maintaining normal sinus mechanism. She continues to be on Lasix IV. She does have bilateral rhonchi in both chest cohen and she continues to be on Lasix IV. Objective - Vital Signs Vital signs: Vital Signs Temp 97.8 F 08/24/18 09:00 Pulse 65 08/24/18 12:00 Resp 16 08/24/18 12:00 BP 168/72 08/24/18 12:00 Pulse Ox 98 08/24/18 12:00 Intake & Output 08/23/18 08/24/18 08/24/18 18:59 06:59 18:59 Intake Total 233.2 1272.787 553.294 Output Total 360 480 300 Balance -126.8 792.787 253.294 Weight 91.4 kg Intake: IV 233.2 902.5 86.7 .9 100 550 70 Heparin Sod,Pork in 0.45% 18.9 NaCl 25,000 unit In 0.45 % NaCl 1 500ml.bag @ 10 UNITS/KG/HR 18.96 mls/hr IV .Q24H [facility] Rx#: [id number] Magnesium Sulfate-D5w Pmx 100 1 gm In Dextrose/Water 1 100ml.bag @ 100 mls/hr IVPB ONCE ONE Rx#: [id number] amiodarone 133.2 233.6 16.7 Intake, IV Titration 370.287 226.594 Amount Amiodarone 450 mg In 254.947 119.094 Dextrose 5% in Water 250 ml @ 1 MG/MIN 34.53 mls/ hr IV .Q7H31M [facility] Rx#: [id number] Heparin Sod,Pork in 0.45% 115.34 NaCl 25,000 unit In 0.45 % NaCl 1 500ml.bag @ 10 UNITS/KG/HR 18.96 mls/hr IV .Q24H [facility] Rx#: [id number] Nitroglycerin-D5w Pmx 50 7.5 mg In Dextrose/Water 1 250ml.bag @ 5 MCG/MIN 1.5 mls/hr IV .Q24H [facility] Rx#: [id number] Sodium Chloride 0.9% 1, 100 000 ml @ 20 mls/hr IV . Q24H [facility] Rx#:[id number] Oral 240 Output: Urine 360 480 300 Other: Voiding Method Indwelling Catheter Indwelling Catheter Indwelling Catheter - Constitutional General appearance: Present: no acute distress - Respiratory Respiratory: bilateral: rales - Cardiovascular Rhythm: regular Heart sounds: normal: S1, S2 - Labs CBC & Chem 7: 08/24/18 05:11 08/24/18 05:11 Labs: Abnormal Lab Results - Last 24 Hours (Table) 08/23/18 08/23/18 08/23/18 Range/Units 05:13 13:24 13:39 WBC (3.8-10.6) k/uL RBC (3.80-5.40) m/uL Hgb (11.4-16.0) gm/dL Hct (34.0-46.0) % MCH (25.0-35.0) pg MCHC (31.0-37.0) g/dL RDW (11.5-15.5) % Neutrophils # (1.3-7.7) k/uL Monocytes # (0-1.0) k/uL APTT (22.0-30.0) sec ABG pH (7.35-7.45) ABG pCO2 (35-45) mmHg ABG pO2 (83-108) mmHg ABG HCO3 (21-25) mmol/L ABG Total CO2 (19-24) mmol/L ABG O2 Saturation (94-97) % Sodium (137-145) mmol/L Chloride (98-107) mmol/L Carbon Dioxide (22-30) mmol/L BUN (7-17) mg/dL Creatinine (0.52-1.04) mg/dL Glucose (74-99) mg/dL POC Glucose (mg/dL) 207 H 234 H (75-99) mg/dL Hemoglobin A1c 6.6 H (4.0-6.0) % Calcium (8.4-10.2) mg/dL Troponin I (0.000-0.034) ng/mL 08/23/18 08/23/18 08/23/18 Range/Units 13:50 15:57 16:45 WBC (3.8-10.6) k/uL RBC (3.80-5.40) m/uL Hgb (11.4-16.0) gm/dL Hct (34.0-46.0) % MCH (25.0-35.0) pg MCHC (31.0-37.0) g/dL RDW (11.5-15.5) % Neutrophils # (1.3-7.7) k/uL Monocytes # (0-1.0) k/uL APTT (22.0-30.0) sec ABG pH 7.46 H (7.35-7.45) ABG pCO2 46 H (35-45) mmHg ABG pO2 142 H (83-108) mmHg ABG HCO3 32 H (21-25) mmol/L ABG Total CO2 34 H (19-24) mmol/L ABG O2 Saturation 99.8 H (94-97) % Sodium (137-145) mmol/L Chloride (98-107) mmol/L Carbon Dioxide (22-30) mmol/L BUN (7-17) mg/dL Creatinine (0.52-1.04) mg/dL Glucose (74-99) mg/dL POC Glucose (mg/dL) 146 H (75-99) mg/dL Hemoglobin A1c (4.0-6.0) % Calcium (8.4-10.2) mg/dL Troponin I 0.220 H* (0.000-0.034) ng/mL 08/23/18 08/23/18 08/23/18 Range/Units 20:20 20:52 22:36 WBC (3.8-10.6) k/uL RBC (3.80-5.40) m/uL Hgb (11.4-16.0) gm/dL Hct (34.0-46.0) % MCH (25.0-35.0) pg MCHC (31.0-37.0) g/dL RDW (11.5-15.5) % Neutrophils # (1.3-7.7) k/uL Monocytes # (0-1.0) k/uL APTT (22.0-30.0) sec ABG pH (7.35-7.45) ABG pCO2 (35-45) mmHg ABG pO2 (83-108) mmHg ABG HCO3 (21-25) mmol/L ABG Total CO2 (19-24) mmol/L ABG O2 Saturation (94-97) % Sodium 133 L (137-145) mmol/L Chloride 92 L (98-107) mmol/L Carbon Dioxide 31 H (22-30) mmol/L BUN 38 H (7-17) mg/dL Creatinine 1.52 H (0.52-1.04) mg/dL Glucose 128 H (74-99) mg/dL POC Glucose (mg/dL) 152 H (75-99) mg/dL Hemoglobin A1c (4.0-6.0) % Calcium 8.1 L (8.4-10.2) mg/dL Troponin I 0.211 H* (0.000-0.034) ng/mL 08/23/18 08/24/18 08/24/18 Range/Units 23:38 00:05 01:14 WBC (3.8-10.6) k/uL RBC (3.80-5.40) m/uL Hgb (11.4-16.0) gm/dL Hct (34.0-46.0) % MCH (25.0-35.0) pg MCHC (31.0-37.0) g/dL RDW (11.5-15.5) % Neutrophils # (1.3-7.7) k/uL Monocytes # (0-1.0) k/uL APTT 21.6 L (22.0-30.0) sec ABG pH (7.35-7.45) ABG pCO2 (35-45) mmHg ABG pO2 (83-108) mmHg ABG HCO3 (21-25) mmol/L ABG Total CO2 (19-24) mmol/L ABG O2 Saturation (94-97) % Sodium (137-145) mmol/L Chloride (98-107) mmol/L Carbon Dioxide (22-30) mmol/L BUN (7-17) mg/dL Creatinine (0.52-1.04) mg/dL Glucose (74-99) mg/dL POC Glucose (mg/dL) 142 H 122 H (75-99) mg/dL Hemoglobin A1c (4.0-6.0) % Calcium (8.4-10.2) mg/dL Troponin I (0.000-0.034) ng/mL 08/24/18 08/24/18 08/24/18 Range/Units 03:33 05:11 05:11 WBC 17.2 H (3.8-10.6) k/uL RBC 2.82 L (3.80-5.40) m/uL Hgb 7.0 L (11.4-16.0) gm/dL Hct 23.6 L (34.0-46.0) % MCH 24.9 L (25.0-35.0) pg MCHC 29.8 L (31.0-37.0) g/dL RDW 17.0 H (11.5-15.5) % Neutrophils # 12.9 H (1.3-7.7) k/uL Monocytes # 1.5 H (0-1.0) k/uL APTT (22.0-30.0) sec ABG pH (7.35-7.45) ABG pCO2 (35-45) mmHg ABG pO2 (83-108) mmHg ABG HCO3 (21-25) mmol/L ABG Total CO2 (19-24) mmol/L ABG O2 Saturation (94-97) % Sodium 132 L (137-145) mmol/L Chloride 93 L (98-107) mmol/L Carbon Dioxide 32 H (22-30) mmol/L BUN 39 H (7-17) mg/dL Creatinine 1.57 H (0.52-1.04) mg/dL Glucose (74-99) mg/dL POC Glucose (mg/dL) 102 H (75-99) mg/dL Hemoglobin A1c (4.0-6.0) % Calcium 8.0 L (8.4-10.2) mg/dL Troponin I (0.000-0.034) ng/mL 10/13/18 10/13/18 10/13/18 Range/Units 05:11 05:11 12:17 WBC (3.8-10.6) k/uL RBC (3.80-5.40) m/uL Hgb (11.4-16.0) gm/dL Hct (34.0-46.0) % MCH (25.0-35.0) pg MCHC (31.0-37.0) g/dL RDW (11.5-15.5) % Neutrophils # (1.3-7.7) k/uL Monocytes # (0-1.0) k/uL APTT 32.6 H (22.0-30.0) sec ABG pH (7.35-7.45) ABG pCO2 (35-45) mmHg ABG pO2 (83-108) mmHg ABG HCO3 (21-25) mmol/L ABG Total CO2 (19-24) mmol/L ABG O2 Saturation (94-97) % Sodium (137-145) mmol/L Chloride (98-107) mmol/L Carbon Dioxide (22-30) mmol/L BUN (7-17) mg/dL Creatinine (0.52-1.04) mg/dL Glucose (74-99) mg/dL POC Glucose (mg/dL) 204 H (75-99) mg/dL Hemoglobin A1c (4.0-6.0) % Calcium (8.4-10.2) mg/dL Troponin I 0.174 H* (0.000-0.034) ng/mL Microbiology - Last 24 Hours (Table) 08/22/18 10:27 Blood Culture - Preliminary Blood No Growth after 24 hours Assessment and Plan Assessment: Assessment #1 congestive heart failure exacerbation secondary to diastolic dysfunction, acute on chronic #2 acute exacerbation of COPD #3 severe pulmonary hypertension #4 paroxysmal atrial fibrillation #5 coronary artery disease and status post CABG #6 chest discomfort #7 multiple comorbid conditions Plan #1 DC amiodarone IV and start the patient on amiodarone by mouth #2 wean the patient from the nitro drip and start her on oral nitrate #3 consider adding oral anticoagulation with Xarelto at 15 mg by mouth daily #4 follow-up with the patient
[2018-08-24] MEDS: AMIODARONE 200 MG TAB PO SCH ×2 (13:01→19:54)
[2018-08-24] MEDS: ISOSORBIDE MONONITRATE ER 30 MG TAB.ER.24H PO SCH (13:01)
[2018-08-24] MEDS: ENALAPRILAT 1.25 MG/ML 1 ML VIAL IVP PRN ×2 (15:40→22:23)
[2018-08-24 17:26] LABS: Glucose,Whole Blood 149 mg/dL (75-99)
[2018-08-24] MEDS: ATORVASTATIN 40 MG TAB PO SCH (19:54)
[2018-08-24] MEDS: MELATONIN 3 MG TABLET PO PRN (20:17)
[2018-08-24] MEDS ORDERED: amLODIPine 5 MG TAB PO STA (20:46)
[2018-08-24] MEDS: INSULIN DETEMIR 100 UNIT/ML 10 ML VIAL SQ SCH (20:59)
[2018-08-24 21:00] LABS: Glucose,Whole Blood 108 mg/dL (75-99)
--- NOTE | 2018-08-24 21:09 | P.PN ---
Subjective This is a pleasant 73 years old with previous history of stroke and multi- infarct dementia. Who presents because of dyspnea found to have acute pulmonary edema mostly secondary to atrial fibrillation's with rapid ventricular rate with some elements of LV dysfunction. Patient was admitted and seen by me in the ICU today. His been evaluated by cardiology as well and started on IV diuretics as well as amiodarone. His heart rate is currently better controlled at 71. And blood pressure 155/60. REVIEW OF SYSTEMS: CONSTITUTIONAL: No fever, no malaise, no fatigue. HEENT: No recent visual problems or hearing problems. Denied any sore throat. CARDIOVASCULAR: No orthopnea, PND, no palpitations, no syncope. PULMONARY: No shortness of breath, no cough, no hemoptysis. GASTROINTESTINAL: No diarrhea, no nausea, no vomiting, no abdominal pain. Normoactive bowel sounds. NEUROLOGICAL: No headaches, no weakness, no numbness. HEMATOLOGICAL: Denies any bleeding or petechiae. GENITOURINARY: Denies any burning micturition, frequency, or urgency. MUSCULOSKELETAL/RHEUMATOLOGICAL: Denies any joint pain, swelling, or any muscle pain. ENDOCRINE: Denies any polyuria or polydipsia. medication reviewed: tylenol 100 mg, allopurinol 100 mg, Lipitor 40 mg, klonopin 0.5 mg, Plavix 75 mg, vasotec 1.25 mg, folic a 1 mg, Lasix 60 mg, heparin 5000 U, novolog sliding scale, levemir 30 U, imdur 30 mg, melatonin 3 mg, Zofran 4 mg, protonix 40 mg, senokot-s 1 tab, and triamcinolone topical Objective - Vital Signs Vital signs: Vital Signs Temp 97.8 F 08/24/18 09:00 Pulse 71 08/24/18 11:00 Resp 26 H 08/24/18 11:00 BP 155/60 08/24/18 11:00 Pulse Ox 99 08/24/18 11:00 Intake & Output 08/23/18 08/24/18 08/24/18 18:59 06:59 18:59 Intake Total 233.2 1272.787 412.7 Output Total 360 480 220 Balance -126.8 792.787 192.7 Weight 91.4 kg Intake: IV 233.2 902.5 86.7 .9 100 550 70 Heparin Sod,Pork in 0.45% 18.9 NaCl 25,000 unit In 0.45 % NaCl 1 500ml.bag @ 10 UNITS/KG/HR 18.96 mls/hr IV .Q24H [facility] Rx#: [id number] Magnesium Sulfate-D5w Pmx 100 1 gm In Dextrose/Water 1 100ml.bag @ 100 mls/hr IVPB ONCE ONE Rx#: [id number] amiodarone 133.2 233.6 16.7 Intake, IV Titration 370.287 86.0 Amount Amiodarone 450 mg In 254.947 Dextrose 5% in Water 250 ml @ 1 MG/MIN 34.53 mls/ hr IV .Q7H31M [facility] Rx#: [id number] Heparin Sod,Pork in 0.45% 115.34 NaCl 25,000 unit In 0.45 % NaCl 1 500ml.bag @ 10 UNITS/KG/HR 18.96 mls/hr IV .Q24H [facility] Rx#: [id number] Nitroglycerin-D5w Pmx 50 6.0 mg In Dextrose/Water 1 250ml.bag @ 5 MCG/MIN 1.5 mls/hr IV .Q24H [facility] Rx#: [id number] Sodium Chloride 0.9% 1, 80 000 ml @ 20 mls/hr IV . Q24H [facility] Rx#:[id number] Oral 240 Output: Urine 360 480 220 Other: Voiding Method Indwelling Catheter Indwelling Catheter Indwelling Catheter - Exam GENERAL: The patient is alert and oriented x3, not in any acute distress. Well developed, well nourished. HEENT: Pupils are round and equally reacting to light. EOMI. No scleral icterus. No conjunctival pallor. Normocephalic, atraumatic. No pharyngeal erythema. No thyromegaly. CARDIOVASCULAR: S1 and S2 present. No murmurs, rubs, or gallops. PULMONARY: Chest is clear to auscultation, no wheezing or crackles. ABDOMEN: Soft, nontender, nondistended, normoactive bowel sounds. No palpable organomegaly. MUSCULOSKELETAL: No joint swelling or deformity. EXTREMITIES: No cyanosis, clubbing, or pedal edema. NEUROLOGICAL: Gross neurological examination did not reveal any focal deficits. SKIN: No rashes. - Labs CBC & Chem 7: 08/24/18 05:11 08/24/18 05:11 Labs: Abnormal Lab Results - Last 24 Hours (Table) 08/23/18 08/23/18 08/23/18 Range/Units 05:13 12:02 13:24 WBC (3.8-10.6) k/uL RBC (3.80-5.40) m/uL Hgb (11.4-16.0) gm/dL Hct (34.0-46.0) % MCH (25.0-35.0) pg MCHC (31.0-37.0) g/dL RDW (11.5-15.5) % Neutrophils # (1.3-7.7) k/uL Monocytes # (0-1.0) k/uL APTT (22.0-30.0) sec ABG pH (7.35-7.45) ABG pCO2 (35-45) mmHg ABG pO2 (83-108) mmHg ABG HCO3 (21-25) mmol/L ABG Total CO2 (19-24) mmol/L ABG O2 Saturation (94-97) % Sodium (137-145) mmol/L Chloride (98-107) mmol/L Carbon Dioxide (22-30) mmol/L BUN (7-17) mg/dL Creatinine (0.52-1.04) mg/dL Glucose (74-99) mg/dL POC Glucose (mg/dL) 201 H 207 H (75-99) mg/dL Hemoglobin A1c 6.6 H (4.0-6.0) % Calcium (8.4-10.2) mg/dL Troponin I (0.000-0.034) ng/mL 08/23/18 08/23/18 08/23/18 Range/Units 13:39 13:50 15:57 WBC (3.8-10.6) k/uL RBC (3.80-5.40) m/uL Hgb (11.4-16.0) gm/dL Hct (34.0-46.0) % MCH (25.0-35.0) pg MCHC (31.0-37.0) g/dL RDW (11.5-15.5) % Neutrophils # (1.3-7.7) k/uL Monocytes # (0-1.0) k/uL APTT (22.0-30.0) sec ABG pH 7.46 H (7.35-7.45) ABG pCO2 46 H (35-45) mmHg ABG pO2 142 H (83-108) mmHg ABG HCO3 32 H (21-25) mmol/L ABG Total CO2 34 H (19-24) mmol/L ABG O2 Saturation 99.8 H (94-97) % Sodium (137-145) mmol/L Chloride (98-107) mmol/L Carbon Dioxide (22-30) mmol/L BUN (7-17) mg/dL Creatinine (0.52-1.04) mg/dL Glucose (74-99) mg/dL POC Glucose (mg/dL) 234 H (75-99) mg/dL Hemoglobin A1c (4.0-6.0) % Calcium (8.4-10.2) mg/dL Troponin I 0.220 H* (0.000-0.034) ng/mL 08/23/18 08/23/18 08/23/18 Range/Units 16:45 20:20 20:52 WBC (3.8-10.6) k/uL RBC (3.80-5.40) m/uL Hgb (11.4-16.0) gm/dL Hct (34.0-46.0) % MCH (25.0-35.0) pg MCHC (31.0-37.0) g/dL RDW (11.5-15.5) % Neutrophils # (1.3-7.7) k/uL Monocytes # (0-1.0) k/uL APTT (22.0-30.0) sec ABG pH (7.35-7.45) ABG pCO2 (35-45) mmHg ABG pO2 (83-108) mmHg ABG HCO3 (21-25) mmol/L ABG Total CO2 (19-24) mmol/L ABG O2 Saturation (94-97) % Sodium (137-145) mmol/L Chloride (98-107) mmol/L Carbon Dioxide (22-30) mmol/L BUN (7-17) mg/dL Creatinine (0.52-1.04) mg/dL Glucose (74-99) mg/dL POC Glucose (mg/dL) 146 H 152 H (75-99) mg/dL Hemoglobin A1c (4.0-6.0) % Calcium (8.4-10.2) mg/dL Troponin I 0.211 H* (0.000-0.034) ng/mL 08/23/18 08/23/18 08/24/18 Range/Units 22:36 23:38 00:05 WBC (3.8-10.6) k/uL RBC (3.80-5.40) m/uL Hgb (11.4-16.0) gm/dL Hct (34.0-46.0) % MCH (25.0-35.0) pg MCHC (31.0-37.0) g/dL RDW (11.5-15.5) % Neutrophils # (1.3-7.7) k/uL Monocytes # (0-1.0) k/uL APTT 21.6 L (22.0-30.0) sec ABG pH (7.35-7.45) ABG pCO2 (35-45) mmHg ABG pO2 (83-108) mmHg ABG HCO3 (21-25) mmol/L ABG Total CO2 (19-24) mmol/L ABG O2 Saturation (94-97) % Sodium 133 L (137-145) mmol/L Chloride 92 L (98-107) mmol/L Carbon Dioxide 31 H (22-30) mmol/L BUN 38 H (7-17) mg/dL Creatinine 1.52 H (0.52-1.04) mg/dL Glucose 128 H (74-99) mg/dL POC Glucose (mg/dL) 142 H (75-99) mg/dL Hemoglobin A1c (4.0-6.0) % Calcium 8.1 L (8.4-10.2) mg/dL Troponin I (0.000-0.034) ng/mL 08/24/18 08/24/18 08/24/18 Range/Units 01:14 03:33 05:11 WBC (3.8-10.6) k/uL RBC (3.80-5.40) m/uL Hgb (11.4-16.0) gm/dL Hct (34.0-46.0) % MCH (25.0-35.0) pg MCHC (31.0-37.0) g/dL RDW (11.5-15.5) % Neutrophils # (1.3-7.7) k/uL Monocytes # (0-1.0) k/uL APTT (22.0-30.0) sec ABG pH (7.35-7.45) ABG pCO2 (35-45) mmHg ABG pO2 (83-108) mmHg ABG HCO3 (21-25) mmol/L ABG Total CO2 (19-24) mmol/L ABG O2 Saturation (94-97) % Sodium 132 L (137-145) mmol/L Chloride 93 L (98-107) mmol/L Carbon Dioxide 32 H (22-30) mmol/L BUN 39 H (7-17) mg/dL Creatinine 1.57 H (0.52-1.04) mg/dL Glucose (74-99) mg/dL POC Glucose (mg/dL) 122 H 102 H (75-99) mg/dL Hemoglobin A1c (4.0-6.0) % Calcium 8.0 L (8.4-10.2) mg/dL Troponin I (0.000-0.034) ng/mL 08/24/18 08/24/18 08/24/18 Range/Units 05:11 05:11 05:11 WBC 17.2 H (3.8-10.6) k/uL RBC 2.82 L (3.80-5.40) m/uL Hgb 7.0 L (11.4-16.0) gm/dL Hct 23.6 L (34.0-46.0) % MCH 24.9 L (25.0-35.0) pg MCHC 29.8 L (31.0-37.0) g/dL RDW 17.0 H (11.5-15.5) % Neutrophils # 12.9 H (1.3-7.7) k/uL Monocytes # 1.5 H (0-1.0) k/uL APTT 32.6 H (22.0-30.0) sec ABG pH (7.35-7.45) ABG pCO2 (35-45) mmHg ABG pO2 (83-108) mmHg ABG HCO3 (21-25) mmol/L ABG Total CO2 (19-24) mmol/L ABG O2 Saturation (94-97) % Sodium (137-145) mmol/L Chloride (98-107) mmol/L Carbon Dioxide (22-30) mmol/L BUN (7-17) mg/dL Creatinine (0.52-1.04) mg/dL Glucose (74-99) mg/dL POC Glucose (mg/dL) (75-99) mg/dL Hemoglobin A1c (4.0-6.0) % Calcium (8.4-10.2) mg/dL Troponin I 0.174 H* (0.000-0.034) ng/mL Microbiology - Last 24 Hours (Table) 08/22/18 10:27 Blood Culture - Preliminary Blood No Growth after 24 hours Assessment and Plan Assessment: Acute hypoxic respiratory failure, secondary to acute pulmonary edema. Present on admission atrial fibrillation's with rapid ventricular rate Ischemic stroke in the left middle cerebral artery with residual right sided hemiplegia and dysarthria. Recent aspiration pneumonia of the right lower lobe, on Augmentin Recent right ankle fractures with medial my last and fibular fracture secondary to fall, been managed with a brace; nonsurgical management Vascular dementia 2 diabetes mellitus and GERD Hyperlipidemia Gestational hypertension Degenerative joint disease Chronic kidney disease stage III Chronic low back pain Chronic urine incontinence Generalized anxiety disorder Moderate mitral and tricuspid regurgitation, nontraumatic Dear secondary pulmonary hypertension Plan: We recommend to continue with the same treatment. Continue with symptomatic treatment. Follow-up cardiology recommendations and their input is appreciated. Pulmonary/critical care R following the case. GI and DVT prophylaxis. Further recommendations [email or web address]
[2018-08-24] MEDS: ACETAMINOPHEN TAB 500 MG TAB PO PRN (22:23)
[2018-08-25] MEDS: FUROSEMIDE 10 MG/ML 10 ML VIAL IV SCH ×3 (00:42→16:10)
[2018-08-25 04:20] LABS: Magnesium 1.9 mg/dL (1.6-2.3); Phosphorus 2.7 mg/dL (2.5-4.5); Potassium 3.6 mmol/L (3.5-5.1)
[2018-08-25 04:33] LABS: Anisocytosis Slight; HGB 7.2 gm/dL (11.4-16.0); Hypochromasia Marked; MCH 24.8 pg (25.0-35.0); MCHC 29.9 g/dL (31.0-37.0); MCV 82.9 fL (80.0-100.0); Mean Platelet Volume 7.1; Platelet Count 333 k/uL (150-450); Poikilocytosis Moderate; RBC 2.89 m/uL (3.80-5.40); RDW 17.3 % (11.5-15.5); WBC 16.4 k/uL (3.8-10.6)
[2018-08-25 05:03] LABS: Eosinophils # (M) 0.16 k/uL (0-0.7); Lymphocytes # (M) 2.62 k/uL (1.0-4.8); Monocytes # (M) 0.82 k/uL (0-1.0); Neutrophils # (M) 12.79 k/uL (1.3-7.7); Neutrophils % (M) 78 %; Nucleated Red Blood Cells 0 /100 WBC (0-0); Total Cells Counted 100
[2018-08-25 05:05] LABS: Polychromasia Present
--- NOTE | 2018-08-25 05:50 | XR ---
EXAMINATION TYPE: XR chest 1V DATE OF EXAM: 08/25/2018 HISTORY: pulm edema. REFERENCE: Previous study dated 08/24/2018. FINDINGS: There has been a midline sternotomy. The heart is mildly enlarged. Her bilateral effusions. There is bibasilar airspace disease. The overa ll appearance has not changed significantly. IMPRESSION: NO SIGNIFICANT INTERVAL CHANGE IN THE APPEARANCE OF THE CHEST.
[2018-08-25] MEDS ORDERED: Magnesium Replacement Protocol 1 EACH MISC MISCELLANE PRN (05:55)
[2018-08-25] MEDS ORDERED: POTASSIUM CHLORIDE ER 20 MEQ TAB.ER PO SCH (06:00)
[2018-08-25 06:06] LABS: Glucose,Whole Blood 77 mg/dL (75-99)
[2018-08-25] MEDS: INSULIN ASPART 100 UNIT/ML 1 ML 10 ML VIAL SQ SCH ×4 (06:31→21:51)
[2018-08-25] MEDS: ENALAPRILAT 1.25 MG/ML 1 ML VIAL IVP PRN (07:06)
[2018-08-25] MEDS: ACETAMINOPHEN TAB 500 MG TAB PO PRN ×2 (07:14→15:40)
[2018-08-25] MEDS: clonazePAM 0.5 MG TAB PO SCH ×3 (07:14→21:45)
[2018-08-25] MEDS: PANTOPRAZOLE 40 MG TABLET PO SCH ×2 (07:15→17:29)
[2018-08-25] MEDS: MAGNESIUM SULFATE-D5W PMX 1 GM in DEXTROSE/WATER 1 100ML.BAG IVPB SCH ×2 (07:15→08:47)
--- NOTE | 2018-08-25 07:42 | P.PN ---
Subjective Progress Note Date: 08/25/18 Principal diagnosis: Acute hypoxic respiratory failure This is a pleasant 73-year-old female patient with known history of coronary artery disease and status post CABG, chronic obstructive pulmonary disease, chronic kidney disease, paroxysmal atrial fibrillation, and history of stroke, was admitted to the intensive care unit with congestive heart failure secondary to diastole dysfunction as well as COPD exacerbation. She underwent an echocardiogram and that revealed normal LV function with hypertensive heart disease, moderate MR, moderate TR, and severe pulmonary hypertension. The cardiac enzymes are slightly elevated. The hemoglobin is only 7. On follow-up with the patient today, she is not feeling well. No more chest pain or chest discomfort. No shortness of breath. The blood pressure has been elevated and I am going to add metoprolol 25 mg by mouth twice a day to the current medical regimen. She continues to be on Lasix IV. Objective - Vital Signs Vital signs: Vital Signs Temp 98.2 F 08/25/18 04:00 Pulse 83 08/25/18 07:00 Resp 18 08/25/18 07:00 BP 190/67 08/25/18 07:00 Pulse Ox 95 08/25/18 07:00 Intake & Output 08/24/18 08/25/18 08/25/18 18:59 06:59 18:59 Intake Total 1327.814 542.259 260 Output Total 855 2115 225 Balance 472.814 -1572.741 35 Weight 95.4 kg Intake: IV 86.7 .9 70 amiodarone 16.7 Intake, IV Titration 521.114 422.259 20 Amount Amiodarone 450 mg In 119.094 Dextrose 5% in Water 250 ml @ 1 MG/MIN 34.53 mls/ hr IV .Q7H31M [facility] Rx#: [id number] Heparin Sod,Pork in 0.45% 173.02 182.259 NaCl 25,000 unit In 0.45 % NaCl 1 500ml.bag @ 10 UNITS/KG/HR 18.96 mls/hr IV .Q24H [facility] Rx#: [id number] Nitroglycerin-D5w Pmx 50 9.0 mg In Dextrose/Water 1 250ml.bag @ 5 MCG/MIN 1.5 mls/hr IV .Q24H [facility] Rx#: [id number] Sodium Chloride 0.9% 1, 220 240 20 000 ml @ 20 mls/hr IV . Q24H [facility] Rx#:[id number] Oral 720 120 240 Output: Urine 855 2115 225 Other: Voiding Method Indwelling Catheter Indwelling Catheter - Constitutional General appearance: Present: no acute distress - Respiratory Respiratory: bilateral: diminished - Cardiovascular Rhythm: regular Heart sounds: normal: S1, S2 - Labs CBC & Chem 7: 08/25/18 03:41 08/25/18 03:41 Labs: Abnormal Lab Results - Last 24 Hours (Table) 08/24/18 08/24/18 08/24/18 Range/Units 12:17 12:53 17:24 WBC (3.8-10.6) k/uL RBC (3.80-5.40) m/uL Hgb (11.4-16.0) gm/dL Hct (34.0-46.0) % MCH (25.0-35.0) pg MCHC (31.0-37.0) g/dL RDW (11.5-15.5) % Neutrophils # (Manual) (1.3-7.7) k/uL APTT 90.6 H (22.0-30.0) sec Sodium (137-145) mmol/L Chloride (98-107) mmol/L Carbon Dioxide (22-30) mmol/L BUN (7-17) mg/dL Creatinine (0.52-1.04) mg/dL POC Glucose (mg/dL) 204 H 149 H (75-99) mg/dL Calcium (8.4-10.2) mg/dL 08/24/18 08/24/18 08/25/18 Range/Units 20:58 21:03 03:41 WBC (3.8-10.6) k/uL RBC (3.80-5.40) m/uL Hgb (11.4-16.0) gm/dL Hct (34.0-46.0) % MCH (25.0-35.0) pg MCHC (31.0-37.0) g/dL RDW (11.5-15.5) % Neutrophils # (Manual) (1.3-7.7) k/uL APTT 60.2 H (22.0-30.0) sec Sodium 134 L (137-145) mmol/L Chloride 95 L (98-107) mmol/L Carbon Dioxide 31 H (22-30) mmol/L BUN 39 H (7-17) mg/dL Creatinine 1.57 H (0.52-1.04) mg/dL POC Glucose (mg/dL) 108 H (75-99) mg/dL Calcium 8.0 L (8.4-10.2) mg/dL 08/25/18 08/25/18 Range/Units 03:41 03:41 WBC 16.4 H (3.8-10.6) k/uL RBC 2.89 L (3.80-5.40) m/uL Hgb 7.2 L (11.4-16.0) gm/dL Hct 24.0 L (34.0-46.0) % MCH 24.8 L (25.0-35.0) pg MCHC 29.9 L (31.0-37.0) g/dL RDW 17.3 H (11.5-15.5) % Neutrophils # (Manual) 12.79 H (1.3-7.7) k/uL APTT 57.8 H (22.0-30.0) sec Sodium (137-145) mmol/L Chloride (98-107) mmol/L Carbon Dioxide (22-30) mmol/L BUN (7-17) mg/dL Creatinine (0.52-1.04) mg/dL POC Glucose (mg/dL) (75-99) mg/dL Calcium (8.4-10.2) mg/dL Microbiology - Last 24 Hours (Table) 08/22/18 10:27 Blood Culture - Preliminary Blood No Growth after 48 hours Assessment and Plan Assessment: Assessment #1 congestive heart failure exacerbation secondary to diastolic dysfunction, acute on chronic #2 acute exacerbation of COPD #3 severe pulmonary hypertension #4 paroxysmal atrial fibrillation #5 coronary artery disease and status post CABG #6 chest discomfort #7 multiple comorbid conditions Plan Continue the amiodarone by mouth. The patient was switched from IV to by mouth yesterday. Add metoprolol to the current medical regimen for better blood pressure control Hold any oral anticoagulation at this point in view of the low hemoglobin Follow-up with the patient
[2018-08-25] MEDS: SENNOSIDES-DOCUSATE SODIUM 1 EACH TAB PO SCH (08:23)
[2018-08-25] MEDS: ONDANSETRON 4 MG/2 ML VIAL IVP SCH ×2 (08:23→15:00)
[2018-08-25] MEDS: ISOSORBIDE MONONITRATE ER 30 MG TAB.ER.24H PO SCH (08:23)
[2018-08-25] MEDS: CYANOCOBALAMIN-FA-PYRIDOXINE 1 EACH TAB PO SCH (08:23)
[2018-08-25] MEDS: PARoxetine 10 MG TAB PO SCH (08:23)
[2018-08-25] MEDS: AMIODARONE 200 MG TAB PO SCH ×2 (08:23→21:45)
[2018-08-25] MEDS: METOPROLOL TARTRATE 25 MG TAB PO SCH ×2 (08:23→21:45)
[2018-08-25] MEDS: CLOPIDOGREL 75 MG TAB PO SCH (08:23)
[2018-08-25] MEDS: ALLOPURINOL 100 MG TAB PO SCH (08:23)
[2018-08-25 11:28] LABS: Glucose,Whole Blood 149 mg/dL (75-99)
--- NOTE | 2018-08-25 12:01 | P.PN ---
Subjective This is a pleasant 73 years old with previous history of stroke and multi- infarct dementia. Who presents because of dyspnea found to have acute pulmonary edema mostly secondary to atrial fibrillation's with rapid ventricular rate with some elements of LV dysfunction. Patient was admitted and seen by me in the ICU today. His been evaluated by cardiology as well and started on IV diuretics as well as amiodarone. His heart rate is currently better controlled at 71. And blood pressure 155/60. 08/25/2018 Today patient remains in the ICU. She is fully awake. She still have some dyspnea . Patient developed chest pain last night before going to sleep it was about 60/10 in severity, however now is resolved. [employer] evaluated the patient this morning pending, and he recommended metoprolol 25 mg twice a day, patient has high blood pressure 119/67, rest of vitals were stable. WBC 16.4 K. Hemoglobin 7.2. plt 333. Sodium 134, creatinine 1.5, which is close to her baseline of 1.3-1.7. Patient is with history of atrial fibrillation, No anticoagulation in the view of low hemoglobin at 7.2, as per cardiology team recommendation Patient to clarify to me she was not on oxygen at home REVIEW OF SYSTEMS: CONSTITUTIONAL: No fever, no malaise, no fatigue. HEENT: No recent visual problems or hearing problems. Denied any sore throat. CARDIOVASCULAR: No orthopnea, PND, no palpitations, no syncope. PULMONARY: No shortness of breath, no cough, no hemoptysis. GASTROINTESTINAL: No diarrhea, no nausea, no vomiting, no abdominal pain. Normoactive bowel sounds. NEUROLOGICAL: No headaches, no weakness, no numbness. HEMATOLOGICAL: Denies any bleeding or petechiae. GENITOURINARY: Denies any burning micturition, frequency, or urgency. MUSCULOSKELETAL/RHEUMATOLOGICAL: Denies any joint pain, swelling, or any muscle pain. ENDOCRINE: Denies any polyuria or polydipsia. medication reviewed: tylenol 100 mg, allopurinol 100 mg, Lipitor 40 mg, klonopin 0.5 mg, Plavix 75 mg, vasotec 1.25 mg, folic a 1 mg, Lasix 60 mg, heparin 5000 U, novolog sliding scale, levemir 30 U, imdur 30 mg, melatonin 3 mg, Zofran 4 mg, protonix 40 mg, senokot-s 1 tab, and triamcinolone topical. Metoprolol 25 mg Objective - Vital Signs Vital signs: Vital Signs Temp 97.7 F 08/25/18 08:00 Pulse 71 08/25/18 11:00 Resp 17 08/25/18 11:00 BP 150/61 08/25/18 11:00 Pulse Ox 95 08/25/18 11:00 Intake & Output 08/24/18 08/25/18 08/25/18 18:59 06:59 18:59 Intake Total 1327.814 542.259 760 Output Total 855 2115 1050 Balance 472.814 -1572.741 -290 Weight 95.4 kg Intake: IV 86.7 .9 70 amiodarone 16.7 Intake, IV Titration 521.114 422.259 400 Amount Amiodarone 450 mg In 119.094 Dextrose 5% in Water 250 ml @ 1 MG/MIN 34.53 mls/ hr IV .Q7H31M [facility] Rx#: [id number] Heparin Sod,Pork in 0.45% 173.02 182.259 NaCl 25,000 unit In 0.45 % NaCl 1 500ml.bag @ 10 UNITS/KG/HR 18.96 mls/hr IV .Q24H [facility] Rx#: [id number] Magnesium Sulfate-D5w Pmx 300 1 gm In Dextrose/Water 1 100ml.bag @ 100 mls/hr IVPB Q1H [facility] Rx#: [id number] Nitroglycerin-D5w Pmx 50 9.0 mg In Dextrose/Water 1 250ml.bag @ 5 MCG/MIN 1.5 mls/hr IV .Q24H [facility] Rx#: [id number] Sodium Chloride 0.9% 1, 220 240 100 000 ml @ 20 mls/hr IV . Q24H [facility] Rx#:[id number] Oral 720 120 360 Output: Urine 855 2115 1050 Other: Voiding Method Indwelling Catheter Indwelling Catheter Indwelling Catheter - Exam GENERAL: The patient is alert and oriented x3, not in any acute distress. Well developed, well nourished. HEENT: Pupils are round and equally reacting to light. EOMI. No scleral icterus. No conjunctival pallor. Normocephalic, atraumatic. No pharyngeal erythema. No thyromegaly. CARDIOVASCULAR: S1 and S2 present. No murmurs, rubs, or gallops. PULMONARY: Chest is clear to auscultation, no wheezing or crackles. ABDOMEN: Soft, nontender, nondistended, normoactive bowel sounds. No palpable organomegaly. MUSCULOSKELETAL: No joint swelling or deformity. EXTREMITIES: No cyanosis, clubbing, or pedal edema. NEUROLOGICAL: Gross neurological examination did not reveal any focal deficits. SKIN: No rashes. - Labs CBC & Chem 7: 08/25/18 03:41 08/25/18 03:41 Labs: Abnormal Lab Results - Last 24 Hours (Table) 08/24/18 08/24/18 08/24/18 Range/Units 12:17 12:53 17:24 WBC (3.8-10.6) k/uL RBC (3.80-5.40) m/uL Hgb (11.4-16.0) gm/dL Hct (34.0-46.0) % MCH (25.0-35.0) pg MCHC (31.0-37.0) g/dL RDW (11.5-15.5) % Neutrophils # (Manual) (1.3-7.7) k/uL APTT 90.6 H (22.0-30.0) sec Sodium (137-145) mmol/L Chloride (98-107) mmol/L Carbon Dioxide (22-30) mmol/L BUN (7-17) mg/dL Creatinine (0.52-1.04) mg/dL POC Glucose (mg/dL) 204 H 149 H (75-99) mg/dL Calcium (8.4-10.2) mg/dL 08/24/18 08/24/18 08/25/18 Range/Units 20:58 21:03 03:41 WBC (3.8-10.6) k/uL RBC (3.80-5.40) m/uL Hgb (11.4-16.0) gm/dL Hct (34.0-46.0) % MCH (25.0-35.0) pg MCHC (31.0-37.0) g/dL RDW (11.5-15.5) % Neutrophils # (Manual) (1.3-7.7) k/uL APTT 60.2 H (22.0-30.0) sec Sodium 134 L (137-145) mmol/L Chloride 95 L (98-107) mmol/L Carbon Dioxide 31 H (22-30) mmol/L BUN 39 H (7-17) mg/dL Creatinine 1.57 H (0.52-1.04) mg/dL POC Glucose (mg/dL) 108 H (75-99) mg/dL Calcium 8.0 L (8.4-10.2) mg/dL 08/25/18 08/25/18 08/25/18 Range/Units 03:41 03:41 11:27 WBC 16.4 H (3.8-10.6) k/uL RBC 2.89 L (3.80-5.40) m/uL Hgb 7.2 L (11.4-16.0) gm/dL Hct 24.0 L (34.0-46.0) % MCH 24.8 L (25.0-35.0) pg MCHC 29.9 L (31.0-37.0) g/dL RDW 17.3 H (11.5-15.5) % Neutrophils # (Manual) 12.79 H (1.3-7.7) k/uL APTT 57.8 H (22.0-30.0) sec Sodium (137-145) mmol/L Chloride (98-107) mmol/L Carbon Dioxide (22-30) mmol/L BUN (7-17) mg/dL Creatinine (0.52-1.04) mg/dL POC Glucose (mg/dL) 149 H (75-99) mg/dL Calcium (8.4-10.2) mg/dL Microbiology - Last 24 Hours (Table) 08/22/18 10:27 Blood Culture - Preliminary Blood No Growth after 48 hours Assessment and Plan Assessment: Acute hypoxic respiratory failure, secondary to acute pulmonary edema. Present on admission atrial fibrillation's with rapid ventricular rate Acute on chronic diastolic congestive heart failure Ischemic stroke in the left middle cerebral artery with residual right sided hemiplegia and dysarthria. Recent aspiration pneumonia of the right lower lobe, on Augmentin Recent right ankle fractures with medial my last and fibular fracture secondary to fall, been managed with a brace; nonsurgical management Vascular dementia 2 diabetes mellitus and GERD Hyperlipidemia Gestational hypertension Degenerative joint disease Chronic kidney disease stage III Chronic low back pain Chronic urine incontinence Generalized anxiety disorder Moderate mitral and tricuspid regurgitation, nontraumatic secondary pulmonary hypertension Plan: We recommend to continue with the same treatment. Continue with symptomatic treatment. Follow-up cardiology recommendations and their input is appreciated. Pulmonary/critical care R following the case. GI and DVT prophylaxis. Further recommendations [email or web address].[email or web address]
--- NOTE | 2018-08-25 13:42 | P.PN ---
Subjective Progress Note Date: 08/25/18 Principal diagnosis: Acute hypoxic respiratory failure secondary to acute pulmonary edema secondary to atrial fibrillation/RVR and diastolic dysfunction. 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 Patient had a recent admission to the hospital with mostly right ankle fracture with medial malleolus and fibular fracture managed conservatively by orthopedics. We did not see this patient on her last admission, but apparently she had questionable pneumonia/aspiration pneumonia involving the right lower lobe responded to antibiotics. Patient was brought in last night to the ER mostly with symptoms of increased shortness of breath, and she was noted to be in some sort of respiratory distress. Brought into the ER, blood pressure was over 10 systolic, her chest x-ray was suggestive of pulmonary edema. Treated initially with Lasix, she was also placed on BiPAP which was later transitioned to nasal cannula. One of our ICU nurses saw the patient in the ER, patient improved with diuretics and BiPAP, and when I was notified by the nurse taking care of the patient, explained to me that the patient was doing better, hence arrangements were made to transfer the patient to a monitor bed on selective. Patient was continued on diuretics, however rapid response team was called to the patient about 1 hour ago, and I responded with the team. Patient was noted to be in supraventricular tachycardia, she was extremely short of breath, she was given initially adenosine, and she was given a bolus of amiodarone. Patient was also given Ativan, morphine, Lasix, transferred to the intensive care unit, rate came down nicely, patient felt much per her, and she was placed on BiPAP. Shortly after eating placed on BiPAP , her ABG showed a pO2 of 142 pCO2 of 46 pH of 7.46. CBC showed hemoglobin of 7.7 WBC count of 11.1. Basic metabolic profile was relatively normal. Her bicarb is 35 BUN is 32 and creatinine is 1.29. [place] [address], and she had slightly elevated troponin of 0.033. Her urinalysis is suggestive of urinary tract infection, however the patient is asymptomatic. Chest x-ray is consistent with congestive heart failure/pulmonary edema. During my evaluation, the patient was mostly complaining of shortness of breath, no headache, no blurred vision, no chest pain, no nausea, no vomiting, no abdominal pain, no melena, no hematemesis, no dysuria, no frequency no urgency. Reevaluated today on 08/24/2018, patient remains on BiPAP, however I plan to switch her to a nasal cannula today. She seems more comfortable, she is now in normal sinus rhythm, remains on amiodarone drip, remains on diuretics, started on nitroglycerin drip by cardiology because she had some chest pain last night. IV fluids placed at [facility], labs were reviewed, creatinine is up a bit at 1.57. Hemoglobin is 7.0 WBC count is 17.2. Patient is also on heparin drip, no clear- cut evidence of active bleeding anywhere. Troponin was noted to be 0.174 today that is being addressed by cardiology on the case. Chest x-ray continues to show evidence of pulmonary edema. Slight improvement compared to the chest x- ray yesterday Patient was reevaluated today on 08/25/2018, feels much better this morning, she is on nasal cannula, responding quite well to the Lasix, chest x-ray is showing slight improvement in pulmonary edema. Patient was seen by cardiology, felt she may eventually require cardiac catheterization, however her renal functioning is quite poor, and it is almost an absolute contraindication for cardiac catheterization at this point. Metoprolol at 25 mg twice a day was added by cardiology today, and she was kept on high dose of Lasix IV push. Patient has many complex comorbid conditions, and I plan to keep her in the ICU today, continue BiPAP as needed, continue diuretics. Patient looks and feels much better compared to how she felt that the day I transferred her to the ICU. Objective - Vital Signs Vital signs: Vital Signs Temp 97.7 F 08/25/18 12:00 Pulse 64 08/25/18 13:00 Resp 14 08/25/18 13:00 BP 141/65 08/25/18 13:00 Pulse Ox 96 08/25/18 13:00 Intake & Output 08/24/18 08/25/18 08/25/18 18:59 06:59 18:59 Intake Total 1327.814 542.259 800 Output Total 855 2115 1120 Balance 472.814 -1572.741 -320 Weight 95.4 kg Intake: IV 86.7 .9 70 amiodarone 16.7 Intake, IV Titration 521.114 422.259 440 Amount Amiodarone 450 mg In 119.094 Dextrose 5% in Water 250 ml @ 1 MG/MIN 34.53 mls/ hr IV .Q7H31M [facility] Rx#: [id number] Heparin Sod,Pork in 0.45% 173.02 182.259 NaCl 25,000 unit In 0.45 % NaCl 1 500ml.bag @ 10 UNITS/KG/HR 18.96 mls/hr IV .Q24H [facility] Rx#: [id number] Magnesium Sulfate-D5w Pmx 300 1 gm In Dextrose/Water 1 100ml.bag @ 100 mls/hr IVPB Q1H [facility] Rx#: [id number] Nitroglycerin-D5w Pmx 50 9.0 mg In Dextrose/Water 1 250ml.bag @ 5 MCG/MIN 1.5 mls/hr IV .Q24H [facility] Rx#: [id number] Sodium Chloride 0.9% 1, 220 240 140 000 ml @ 20 mls/hr IV . Q24H [facility] Rx#:[id number] Oral 720 120 360 Output: Urine 855 2115 1120 Other: Voiding Method Indwelling Catheter Indwelling Catheter Indwelling Catheter - Exam Physical Exam: Revealed a 73-year-old white female in no distress, presently on nasal cannula. Head: Atraumatic, normocephalic, HEENT:[Neck is supple.] [No neck masses.] [No thyromegaly.] Positive JVD, PERRLA, EOMI, pale conjunctiva is, no icterus. Chest: [Minimal crackles Crackles and rhonchi bilaterally mostly at the bases. Symmetrical chest expansion. No tenderness. Cardiac Exam: [Normal S1 and S2, 2/6 systolic murmur thought the precordium.] Abdomen: [Obese, Soft, nontender, no megaly, no rebound, no guarding, normal bowel sounds.] Extremities: [No clubbing, 1+ bipedal edema, no cyanosis.] Neurological Exam: [No focal neurologic deficit.] Alert oriented 3. Psychiatric: Normal mood, affect and mental status.. Skin: Good skin turgor, no erythema, no rashes, no ulcers. Lymphatics: No lymphadenopathy. - Labs CBC & Chem 7: 08/25/18 03:41 08/25/18 03:41 Labs: Abnormal Lab Results - Last 24 Hours (Table) 08/24/18 08/24/18 08/24/18 Range/Units 17:24 20:58 21:03 WBC (3.8-10.6) k/uL RBC (3.80-5.40) m/uL Hgb (11.4-16.0) gm/dL Hct (34.0-46.0) % MCH (25.0-35.0) pg MCHC (31.0-37.0) g/dL RDW (11.5-15.5) % Neutrophils # (Manual) (1.3-7.7) k/uL APTT 60.2 H (22.0-30.0) sec Sodium (137-145) mmol/L Chloride (98-107) mmol/L Carbon Dioxide (22-30) mmol/L BUN (7-17) mg/dL Creatinine (0.52-1.04) mg/dL POC Glucose (mg/dL) 149 H 108 H (75-99) mg/dL Calcium (8.4-10.2) mg/dL 08/25/18 08/25/18 08/25/18 Range/Units 03:41 03:41 03:41 WBC 16.4 H (3.8-10.6) k/uL RBC 2.89 L (3.80-5.40) m/uL Hgb 7.2 L (11.4-16.0) gm/dL Hct 24.0 L (34.0-46.0) % MCH 24.8 L (25.0-35.0) pg MCHC 29.9 L (31.0-37.0) g/dL RDW 17.3 H (11.5-15.5) % Neutrophils # (Manual) 12.79 H (1.3-7.7) k/uL APTT 57.8 H (22.0-30.0) sec Sodium 134 L (137-145) mmol/L Chloride 95 L (98-107) mmol/L Carbon Dioxide 31 H (22-30) mmol/L BUN 39 H (7-17) mg/dL Creatinine 1.57 H (0.52-1.04) mg/dL POC Glucose (mg/dL) (75-99) mg/dL Calcium 8.0 L (8.4-10.2) mg/dL 08/25/18 Range/Units 11:27 WBC (3.8-10.6) k/uL RBC (3.80-5.40) m/uL Hgb (11.4-16.0) gm/dL Hct (34.0-46.0) % MCH (25.0-35.0) pg MCHC (31.0-37.0) g/dL RDW (11.5-15.5) % Neutrophils # (Manual) (1.3-7.7) k/uL APTT (22.0-30.0) sec Sodium (137-145) mmol/L Chloride (98-107) mmol/L Carbon Dioxide (22-30) mmol/L BUN (7-17) mg/dL Creatinine (0.52-1.04) mg/dL POC Glucose (mg/dL) 149 H (75-99) mg/dL Calcium (8.4-10.2) mg/dL Microbiology - Last 24 Hours (Table) 08/22/18 10:27 Blood Culture - Preliminary Blood No Growth after 72 hours Assessment and Plan Assessment: Impression: 1 acute hypoxic respiratory failure secondary to acute pulmonary edema most likely secondary to atrial fibrillation/RVR. Suspect diastolic dysfunction, echocardiogram report was noted. Severe pulmonary hypertension was also noted on the echocardiogram. 2 severe pulmonary hypertension as noted on the echocardiogram. 3 recent history of possible aspiration pneumonia, this is very questionable. possibility of chronic congestive heart failure is very likely 4 history of CVA involving the left middle cerebral artery with minimal residual right-sided weakness. 5 chronic obstructive pulmonary disease, severity of which is not clear. 6 type 2 diabetes 7 multiple infarct dementia 8 benign essential hypertension 9 chronic kidney disease stage III 10 generalized anxiety disorder. 11 GERD without esophagitis 12 history of hyperlipidemia. 13 history of recent ankle fracture. Recommendation: Discussed the patient's condition with the wireless store manager, we both agree that we should continue diuretics, metoprolol was added, continue oral nitroglycerin, continue to monitor in the ICU. Patient remains critically ill. We'll continue to follow. Time with Patient: Less than 30
[2018-08-25] MEDS: SODIUM CHLORIDE 0.9% 1,000 ML IV SCH (15:45)
[2018-08-25 17:06] LABS: Glucose,Whole Blood 126 mg/dL (75-99)
[2018-08-25] MEDS: ATORVASTATIN 40 MG TAB PO SCH (21:45)
[2018-08-25] MEDS: MELATONIN 3 MG TABLET PO PRN (21:45)
[2018-08-25] MEDS: INSULIN DETEMIR 100 UNIT/ML 10 ML VIAL SQ SCH (21:46)
[2018-08-25 22:10] LABS: Glucose,Whole Blood 265 mg/dL (75-99)
[2018-08-25] MEDS: HEPARIN SOD,PORK IN 0.45% NACL 25,000 UNIT in 0.45% NACL 1 500ML.BAG IV SCH (23:30)
[2018-08-26] MEDS: FUROSEMIDE 10 MG/ML 10 ML VIAL IV SCH (00:49)
[2018-08-26] MEDS ORDERED: LORazepam 2 MG/ML INJ IV STA (00:56)
[2018-08-26] MEDS: IPRATROPIUM-ALBUTEROL 3 ML NEB INHALATION PRN ×4 (01:01→11:58)
[2018-08-26] MEDS: FUROSEMIDE 250 MG in SODIUM CHLORIDE 0.9% 225 ML IVP SCH ×2 (01:54→17:37)
[2018-08-26 02:44] LABS: Anisocytosis Slight; Basophils % (A) 0 %; Eosinophils % (A) 0 %; HCT 27.4 % (34.0-46.0); HGB 8.2 gm/dL (11.4-16.0); Hypochromasia Marked; Lymphocytes # (A) 1.5 k/uL (1.0-4.8); Lymphocytes % (A) 7 %; MCH 24.9 pg (25.0-35.0); MCHC 29.8 g/dL (31.0-37.0); MCV 83.7 fL (80.0-100.0); Mean Platelet Volume 7.3; Monocytes # (A) 1.7 k/uL (0-1.0); Monocytes % (A) 9 %; Neutrophils # (A) 16.1 k/uL (1.3-7.7); Neutrophils % (A) 80 %; Platelet Count 524 k/uL (150-450); Poikilocytosis Marked; RBC 3.27 m/uL (3.80-5.40); RDW 17.2 % (11.5-15.5); WBC 20.1 k/uL (3.8-10.6)
[2018-08-26 02:52] LABS: INR 1.2 (<1.2); Partial Thromboplastin Time 58.1 sec (22.0-30.0); Prothrombin Time 11.5 sec (9.0-12.0)
[2018-08-26 03:07] LABS: Calcium 8.1 mg/dL (8.4-10.2); Magnesium 2.2 mg/dL (1.6-2.3); Phosphorus 4.2 mg/dL (2.5-4.5); Potassium 3.9 mmol/L (3.5-5.1)
[2018-08-26] MEDS: PROPOFOL 1,000 MG in EMPTY BAG 1 BAG IV SCH ×5 (03:30→22:03)
--- NOTE | 2018-08-26 03:58 | XR ---
EXAMINATION TYPE: XR chest 1V portable DATE OF EXAM: 08/26/2018 COMPARISON: NONE HISTORY: Check tube placement TECHNIQUE: Single frontal view of the chest is obtained. FINDINGS: Endotracheal tube is 2.5 cm from the sergio. There is pulmonary alveolar edema. There is n asogastric tube that has tip probably in the stomach. The lower end of the catheter is not included o n the exam. There are chest leads. There is blunting of costophrenic angles. IMPRESSION: Pleural effusions and pulmonary edema is worse than last exam. This is consistent with c ongestive heart failure or RDS.
[2018-08-26 04:45] LABS: ABG PH 7.38 (7.35-7.45)
[2018-08-26 04:46] LABS: ABG Base Excess 7.3 mmol/L; ABG HCO3 33 mmol/L (21-25); ABG PCO2 56 mmHg (35-45); ABG PO2 100 mmHg (83-108); ABG TCO2 34 mmol/L (19-24)
[2018-08-26] MEDS: CLEVIDIPINE BUTYRATE 25 MG in EMPTY BAG 1 BAG IV SCH (05:21)
[2018-08-26] MEDS: clonazePAM 0.5 MG TAB PO SCH ×3 (05:54→20:58)
[2018-08-26] MEDS ORDERED: POTASSIUM BICARBONATE/CIT AC 20 MEQ TABLET.EFF PO ONE (05:56)
[2018-08-26 08:22] LABS: Glucose,Whole Blood 183 mg/dL (75-99)
[2018-08-26] MEDS: ALLOPURINOL 100 MG TAB PO SCH (08:32)
[2018-08-26] MEDS: CLOPIDOGREL 75 MG TAB PO SCH (08:32)
[2018-08-26] MEDS: INSULIN ASPART 100 UNIT/ML 1 ML 10 ML VIAL SQ SCH ×3 (08:32→18:38)
[2018-08-26] MEDS: ISOSORBIDE MONONITRATE ER 30 MG TAB.ER.24H PO SCH (08:32)
[2018-08-26] MEDS: PANTOPRAZOLE 40 MG TABLET PO SCH ×2 (08:32→17:36)
[2018-08-26] MEDS: CYANOCOBALAMIN-FA-PYRIDOXINE 1 EACH TAB PO SCH (08:32)
[2018-08-26] MEDS: AMIODARONE 200 MG TAB PO SCH (08:32)
[2018-08-26] MEDS: CALCITRIOL 0.25 MCG CAP PO SCH (08:33)
[2018-08-26] MEDS: PARoxetine 10 MG TAB PO SCH (08:33)
[2018-08-26] MEDS: SENNOSIDES-DOCUSATE SODIUM 1 EACH TAB PO SCH (08:34)
[2018-08-26] MEDS: METOPROLOL TARTRATE 25 MG TAB PO SCH (08:34)
[2018-08-26] MEDS: ONDANSETRON 4 MG TAB PO SCH ×3 (08:41→17:36)
[2018-08-26] MEDS: CHLORHEXIDINE GLUCONATE 15 ML CUP MUCOUS MEM SCH ×2 (08:41→20:59)
--- NOTE | 2018-08-26 08:41 | P.PN ---
Subjective Progress Note Date: 08/26/18 Principal diagnosis: Respiratory failure Progress note dated 08/26/2018 This is a 73-year-old female with a history of hypoxemic respiratory failure secondary to pulmonary edema complicated by atrial fibrillation/RVR. Her ejection fraction is diminished at 30-35%. She also has severe pulmonary hypertension by echocardiogram. 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 Apparently last night or so, she developed worsening respiratory failure. Her blood pressure was elevated and she had atrial fibrillation with RVR. She ended up developing clara respiratory failure with hypoxemia and required intubation on August 26 type copyist for heart failure. Currently, she is on the assist control mode rate of 20, tidal volume is 400 FiO2 100% PEEP of 5. Blood gases on those settings include a PaO2 of 100 PaCO2 of 55 and a pH 7.37. We will decrease the tidal volume to 350 and increase the rate to 26. Currently she is on propofol at 35 mics per kilogram per minute, a saline IV at 20 mL an hour heparin via weightbase protocol and Lasix drip at 10 mg an hour. Chest x-ray is consistent with heart failure. The patient will need tube feeds. Vent changes will be made by respiratory. The patient will also need an art line and central line. I did speak to the family in detail. Objective - Vital Signs Vital signs: Vital Signs Temp 97.5 F L 08/26/18 08:00 Pulse 50 L 08/26/18 08:00 Resp 20 08/26/18 08:00 BP 144/56 08/26/18 08:00 Pulse Ox 100 08/26/18 08:00 Intake & Output 08/25/18 08/26/18 08/26/18 18:59 06:59 18:59 Intake Total 1140 996.335 60 Output Total 1410 1335 200 Balance -270 -338.665 -140 Weight 95.1 kg Intake: Intake, IV Titration 540 876.335 60 Amount Furosemide 250 mg In 50 20 Sodium Chloride 0.9% 225 ml @ 10 MG/HR 10 mls/hr IVP .Q24H [facility] Rx#: [id number] Heparin Sod,Pork in 0.45% 500 NaCl 25,000 unit In 0.45 % NaCl 1 500ml.bag @ 10 UNITS/KG/HR 18.96 mls/hr IV .Q24H [facility] Rx#: [id number] Magnesium Sulfate-D5w Pmx 300 1 gm In Dextrose/Water 1 100ml.bag @ 100 mls/hr IVPB Q1H [facility] Rx#: [id number] Propofol 1,000 mg In 86.335 Empty Bag 1 bag @ Titrate IV .Q0M [facility] Rx#: [id number] Sodium Chloride 0.9% 1, 240 240 40 000 ml @ 20 mls/hr IV . Q24H [facility] Rx#:[id number] Oral 600 120 Output: Urine 1410 1335 200 Other: Voiding Method Indwelling Catheter Indwelling Catheter # Bowel Movements 1 - Exam No acute distress, sedated, with an oral endotracheal tube and NG tube in place. Mental status cannot be assessed at this time. HEENT examination is grossly unremarkable. Mucous membranes are moist. Neck supple. Full range of motion. No adenopathy thyromegaly or neck vein distention. Cardiovascular examination reveals regular rhythm rate. S1-S2 normal. No S3 or S4. No discernible murmur noted. Heart sounds are distant. Lungs reveal coarse bilateral rhonchi and crackles. Breath sounds are diminished. No wheezes. Breath sounds are equal bilaterally. Abdomen soft bowel sounds are heard. No masses or tenderness. Extremities are intact. No cyanosis clubbing or edema. Skin is without rash or lesion. Neurologic examination cannot be assessed as the patient is currently sedated. - Labs CBC & Chem 7: 08/26/18 02:17 08/26/18 02:17 Labs: Abnormal Lab Results - Last 24 Hours (Table) 08/25/18 08/25/18 08/25/18 Range/Units 11:27 17:04 21:43 WBC (3.8-10.6) k/uL RBC (3.80-5.40) m/uL Hgb (11.4-16.0) gm/dL Hct (34.0-46.0) % MCH (25.0-35.0) pg MCHC (31.0-37.0) g/dL RDW (11.5-15.5) % Plt Count (150-450) k/uL Neutrophils # (1.3-7.7) k/uL Monocytes # (0-1.0) k/uL INR (<1.2) APTT (22.0-30.0) sec ABG pCO2 (35-45) mmHg ABG HCO3 (21-25) mmol/L ABG Total CO2 (19-24) mmol/L ABG O2 Saturation (94-97) % Sodium (137-145) mmol/L Chloride (98-107) mmol/L Carbon Dioxide (22-30) mmol/L BUN (7-17) mg/dL Creatinine (0.52-1.04) mg/dL Glucose (74-99) mg/dL POC Glucose (mg/dL) 149 H 126 H 265 H (75-99) mg/dL Calcium (8.4-10.2) mg/dL 08/26/18 08/26/18 08/26/18 Range/Units 02:17 02:17 02:17 WBC 20.1 H (3.8-10.6) k/uL RBC 3.27 L (3.80-5.40) m/uL Hgb 8.2 L (11.4-16.0) gm/dL Hct 27.4 L (34.0-46.0) % MCH 24.9 L (25.0-35.0) pg MCHC 29.8 L (31.0-37.0) g/dL RDW 17.2 H (11.5-15.5) % Plt Count 524 H (150-450) k/uL Neutrophils # 16.1 H (1.3-7.7) k/uL Monocytes # 1.7 H (0-1.0) k/uL INR 1.2 H (<1.2) APTT 58.1 H (22.0-30.0) sec ABG pCO2 (35-45) mmHg ABG HCO3 (21-25) mmol/L ABG Total CO2 (19-24) mmol/L ABG O2 Saturation (94-97) % Sodium 133 L (137-145) mmol/L Chloride 90 L (98-107) mmol/L Carbon Dioxide 32 H (22-30) mmol/L BUN 33 H (7-17) mg/dL Creatinine 1.63 H (0.52-1.04) mg/dL Glucose 208 H (74-99) mg/dL POC Glucose (mg/dL) (75-99) mg/dL Calcium 8.1 L (8.4-10.2) mg/dL 08/26/18 08/26/18 Range/Units 04:15 08:18 WBC (3.8-10.6) k/uL RBC (3.80-5.40) m/uL Hgb (11.4-16.0) gm/dL Hct (34.0-46.0) % MCH (25.0-35.0) pg MCHC (31.0-37.0) g/dL RDW (11.5-15.5) % Plt Count (150-450) k/uL Neutrophils # (1.3-7.7) k/uL Monocytes # (0-1.0) k/uL INR (<1.2) APTT (22.0-30.0) sec ABG pCO2 56 H (35-45) mmHg ABG HCO3 33 H (21-25) mmol/L ABG Total CO2 34 H (19-24) mmol/L ABG O2 Saturation 99.0 H (94-97) % Sodium (137-145) mmol/L Chloride (98-107) mmol/L Carbon Dioxide (22-30) mmol/L BUN (7-17) mg/dL Creatinine (0.52-1.04) mg/dL Glucose (74-99) mg/dL POC Glucose (mg/dL) 183 H (75-99) mg/dL Calcium (8.4-10.2) mg/dL Microbiology - Last 24 Hours (Table) 08/22/18 10:27 Blood Culture - Preliminary Blood No Growth after 72 hours Assessment and Plan Assessment: Assessment Acute hypoxemic respiratory failure, secondary to CHF/pulmonary edema and compensated by atrial fibrillation/RVR in a patient with an echocardiogram showing ejection fraction of 30-35%, requiring intubation and mechanical ventilation on August 26. Severe pulmonary hypertension by echocardiogram. 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 Everything else the same. Arterial line and central line will be placed. Patient is currently on propofol at 35 mics per kilogram per minute heparin via weightbase protocol and Lasix drip 10 mg an hour. We'll make sure that with tube feedings are started. Chest x-rays consistent with heart failure/fluid overload. I did speak to the family. Prognosis is guarded given her age. Additional recommendations and suggestions are forthcoming. Microbiology is negative. White count is 20.1, he will may 0.2, hematocrit 27.4 , and platelet count 524,000. Sodium 133, potassium 3.9, chloride is 90, CO2 32 , BUN 33 and creatinine 1.63. Medications are reviewed. Critical care time 34 minutes. Time with Patient: Greater than 30
[2018-08-26 09:09] LABS: ABG HCO3 34 mmol/L (21-25); ABG PCO2 41 mmHg (35-45); ABG PH 7.53 (7.35-7.45); ABG PO2 >400 mmHg (83-108); ABG TCO2 35 mmol/L (19-24)
[2018-08-26] MEDS ORDERED: CISATRACURIUM 2 MG/ML 5 ML VIAL IV ONE (10:16)
[2018-08-26] MEDS: ENALAPRILAT 1.25 MG/ML 1 ML VIAL IVP PRN ×2 (10:32→17:36)
--- NOTE | 2018-08-26 10:35 | PCN ---
PROCEDURE NOTE TRIPLE LUMEN CATHETER PLACEMENT: Left internal jugular triple lumen catheter. PREOPERATIVE DIAGNOSIS: Administration of fluids and pressors. POSTOPERATIVE DIAGNOSIS: Administration of fluids and pressors. Indication: Hemodynamic monitoring/Intravenous access. A time-out was completed verifying correct patient, procedure, site, positioning, and implant(s) or special equipment if applicable. The patient was placed in a dependent position appropriate for triple lumen catheter placement based on the vein to be cannulated. The patient's left neck was prepped and draped in sterile fashion. 1% Lidocaine was used to anesthetize the surrounding skin area. A triple lumen 9F Cordis catheter was introduced into the left internal jugular vein using Seldinger technique. The catheter was threaded smoothly over the guide wire and appropriate blood return was obtained. Each lumen of the catheter was evacuated of air and flushed with sterile saline. The catheter was then sutured in place to the skin and a sterile dressing applied. Perfusion to the extremity distal to the point of catheter insertion was checked and found to be adequate. A left internal jugular line was placed. There was no immediate complication. The catheter was sutured in place. Sterile dressing was applied. Chest x-ray was ordered to check placement. CVP will be monitored. Sterile dressing was applied by the nurse. MMODL / IJN: [id number] /
--- NOTE | 2018-08-26 10:42 | PCN ---
PROCEDURE NOTE RIGHT RADIAL ARTERIAL LINE PLACEMENT: Indications: Hemodynamic monitoring. A time-out was completed verifying correct patient, procedure, site, positioning, and implant(s) or special equipment if applicable. Jakub's test was performed to ensure adequate perfusion. The patient's right wrist was prepped and draped in sterile fashion. 1% Lidocaine was used to anesthetize the area. An 18G Arrow arterial line was introduced into the right radial artery. The catheter was threaded over the guide wire and the needle was removed with appropriate pulsatile blood return. Blood loss was minimal. The catheter was then sutured in place to the skin and a sterile dressing applied. Perfusion to the extremity distal to the point of catheter insertion was checked and found to be adequate. The patient tolerated the procedure well and there were no complications. Right radial art line was placed. No immediate complications. Good waveform was noted, the line was flushed and secured with sutures and covered with a sterile dressing. MMODL / IJN: [id number] /
--- NOTE | 2018-08-26 11:27 | XR ---
EXAMINATION TYPE: XR chest 1V portable DATE OF EXAM: 08/26/2018 COMPARISON: Prior chest x-ray same date earlier time HISTORY: Status post central venous catheter placement TECHNIQUE: Single frontal view of the chest is obtained. FINDINGS: Left jugular central venous catheter has been placed in the interval, distal tip is overly ing the cavoatrial junction level. There is no evident pneumothorax or significant interval change. IMPRESSION: No evident complication status post central venous catheter placement.
[2018-08-26 12:22] LABS: Glucose,Whole Blood 159 mg/dL (75-99)
--- NOTE | 2018-08-26 12:54 | P.PN ---
Subjective Progress Note Date: 08/26/18 Principal diagnosis: Acute hypoxic respiratory failure This is a pleasant 73-year-old female patient with known history of coronary artery disease and status post CABG, chronic obstructive pulmonary disease, chronic kidney disease, paroxysmal atrial fibrillation, and history of stroke, was admitted to the intensive care unit with congestive heart failure secondary to diastole dysfunction as well as COPD exacerbation. She underwent an echocardiogram and that revealed low normal LV function with hypertensive heart disease, moderate MR, moderate TR, and severe pulmonary hypertension. The cardiac enzymes are slightly elevated. The patient did go into flash pulmonary edema last night and she was intubated and placed on mechanical ventilation. Currently she is on Lasix drip and she continues to be on heparin drip. She has been maintaining normal sinus mechanism with a low heart rates. I am decreasing the dose of metoprolol to 12.5 mg by mouth twice a day. Objective - Vital Signs Vital signs: Vital Signs Temp 97.7 F 08/26/18 12:00 Pulse 48 L 08/26/18 12:00 Resp 26 H 08/26/18 12:00 BP 133/50 08/26/18 12:00 Pulse Ox 100 08/26/18 12:00 Intake & Output 08/25/18 08/26/18 08/26/18 18:59 06:59 18:59 Intake Total 1140 996.335 286.661 Output Total 1410 1335 730 Balance -270 -338.665 -443.339 Weight 95.1 kg 95.1 kg Intake: Intake, IV Titration 540 876.335 276.661 Amount Furosemide 250 mg In 50 60 Sodium Chloride 0.9% 225 ml @ 10 MG/HR 10 mls/hr IVP .Q24H [facility] Rx#: [id number] Heparin Sod,Pork in 0.45% 500 NaCl 25,000 unit In 0.45 % NaCl 1 500ml.bag @ 10 UNITS/KG/HR 18.96 mls/hr IV .Q24H [facility] Rx#: [id number] Magnesium Sulfate-D5w Pmx 300 1 gm In Dextrose/Water 1 100ml.bag @ 100 mls/hr IVPB Q1H [facility] Rx#: [id number] Propofol 1,000 mg In 86.335 96.661 Empty Bag 1 bag @ Titrate IV .Q0M [facility] Rx#: [id number] Sodium Chloride 0.9% 1, 240 240 120 000 ml @ 20 mls/hr IV . Q24H [facility] Rx#:[id number] Oral 600 120 Tube Feeding 10 Output: Urine 1410 1335 730 Other: Voiding Method Indwelling Catheter Indwelling Catheter Indwelling Catheter # Bowel Movements 1 ABP, PAP, CO, CI - Last Documented Arterial Blood Pressure 133/40 - Constitutional General appearance: Present: no acute distress - Respiratory Respiratory: bilateral: diminished - Cardiovascular Rhythm: regular Heart sounds: normal: S1, S2 - Labs CBC & Chem 7: 08/26/18 02:17 08/26/18 02:17 Labs: Abnormal Lab Results - Last 24 Hours (Table) 08/25/18 08/25/18 08/26/18 Range/Units 17:04 21:43 02:17 WBC 20.1 H (3.8-10.6) k/uL RBC 3.27 L (3.80-5.40) m/uL Hgb 8.2 L (11.4-16.0) gm/dL Hct 27.4 L (34.0-46.0) % MCH 24.9 L (25.0-35.0) pg MCHC 29.8 L (31.0-37.0) g/dL RDW 17.2 H (11.5-15.5) % Plt Count 524 H (150-450) k/uL Neutrophils # 16.1 H (1.3-7.7) k/uL Monocytes # 1.7 H (0-1.0) k/uL INR (<1.2) APTT (22.0-30.0) sec ABG pH (7.35-7.45) ABG pCO2 (35-45) mmHg ABG pO2 (83-108) mmHg ABG HCO3 (21-25) mmol/L ABG Total CO2 (19-24) mmol/L ABG O2 Saturation (94-97) % Sodium (137-145) mmol/L Chloride (98-107) mmol/L Carbon Dioxide (22-30) mmol/L BUN (7-17) mg/dL Creatinine (0.52-1.04) mg/dL Glucose (74-99) mg/dL POC Glucose (mg/dL) 126 H 265 H (75-99) mg/dL Calcium (8.4-10.2) mg/dL 08/26/18 08/26/18 08/26/18 Range/Units 02:17 02:17 04:15 WBC (3.8-10.6) k/uL RBC (3.80-5.40) m/uL Hgb (11.4-16.0) gm/dL Hct (34.0-46.0) % MCH (25.0-35.0) pg MCHC (31.0-37.0) g/dL RDW (11.5-15.5) % Plt Count (150-450) k/uL Neutrophils # (1.3-7.7) k/uL Monocytes # (0-1.0) k/uL INR 1.2 H (<1.2) APTT 58.1 H (22.0-30.0) sec ABG pH (7.35-7.45) ABG pCO2 56 H (35-45) mmHg ABG pO2 (83-108) mmHg ABG HCO3 33 H (21-25) mmol/L ABG Total CO2 34 H (19-24) mmol/L ABG O2 Saturation 99.0 H (94-97) % Sodium 133 L (137-145) mmol/L Chloride 90 L (98-107) mmol/L Carbon Dioxide 32 H (22-30) mmol/L BUN 33 H (7-17) mg/dL Creatinine 1.63 H (0.52-1.04) mg/dL Glucose 208 H (74-99) mg/dL POC Glucose (mg/dL) (75-99) mg/dL Calcium 8.1 L (8.4-10.2) mg/dL 08/26/18 08/26/18 08/26/18 Range/Units 08:18 09:07 11:59 WBC (3.8-10.6) k/uL RBC (3.80-5.40) m/uL Hgb (11.4-16.0) gm/dL Hct (34.0-46.0) % MCH (25.0-35.0) pg MCHC (31.0-37.0) g/dL RDW (11.5-15.5) % Plt Count (150-450) k/uL Neutrophils # (1.3-7.7) k/uL Monocytes # (0-1.0) k/uL INR (<1.2) APTT (22.0-30.0) sec ABG pH 7.53 H (7.35-7.45) ABG pCO2 (35-45) mmHg ABG pO2 >400 H (83-108) mmHg ABG HCO3 34 H (21-25) mmol/L ABG Total CO2 35 H (19-24) mmol/L ABG O2 Saturation 100.0 H (94-97) % Sodium (137-145) mmol/L Chloride (98-107) mmol/L Carbon Dioxide (22-30) mmol/L BUN (7-17) mg/dL Creatinine (0.52-1.04) mg/dL Glucose (74-99) mg/dL POC Glucose (mg/dL) 183 H 159 H (75-99) mg/dL Calcium (8.4-10.2) mg/dL Microbiology - Last 24 Hours (Table) 08/22/18 10:27 Blood Culture - Preliminary Blood No Growth after 72 hours Assessment and Plan Assessment: Assessment #1 congestive heart failure exacerbation secondary to diastolic dysfunction, acute on chronic #2 acute exacerbation of COPD #3 severe pulmonary hypertension #4 paroxysmal atrial fibrillation #5 coronary artery disease and status post CABG #6 chest discomfort #7 multiple comorbid conditions Plan Decrease the dose of amiodarone 200 mg milligrams by mouth twice a day Decrease the dose of metoprolol to 12.5 mg by mouth twice a day Hold any oral anticoagulation at this point in view of the low hemoglobin Follow-up with the patient
[2018-08-26] MEDS: IPRATROPIUM-ALBUTEROL 3 ML NEB INHALATION SCH ×3 (16:39→23:30)
[2018-08-26] MEDS: HEPARIN SOD,PORK IN 0.45% NACL 25,000 UNIT in 0.45% NACL 1 500ML.BAG IV SCH (17:36)
[2018-08-26] MEDS: SODIUM CHLORIDE 0.9% 1,000 ML IV SCH (17:38)
[2018-08-26 18:17] LABS: Glucose,Whole Blood 140 mg/dL (75-99)
[2018-08-26] MEDS ORDERED: POTASSIUM BICARBONATE/CIT AC 20 MEQ TABLET.EFF NG-TUBE SCH (19:00)
--- NOTE | 2018-08-26 19:50 | P.PN ---
Subjective This is a pleasant 73 years old with previous history of stroke and multi- infarct dementia. Who presents because of dyspnea found to have acute pulmonary edema mostly secondary to atrial fibrillation's with rapid ventricular rate with some elements of LV dysfunction. Patient was admitted and seen by me in the ICU today. His been evaluated by cardiology as well and started on IV diuretics as well as amiodarone. His heart rate is currently better controlled at 71. And blood pressure 155/60. 08/25/2018 Today patient remains in the ICU. She is fully awake. She still have some dyspnea . Patient developed chest pain last night before going to sleep it was about 60/10 in severity, however now is resolved. Staff Nuclear Weapons Officer evaluated the patient this morning pending, and he recommended metoprolol 25 mg twice a day, patient has high blood pressure 119/67, rest of vitals were stable. WBC 16.4 K. Hemoglobin 7.2. plt 333. Sodium 134, creatinine 1.5, which is close to her baseline of 1.3-1.7. Patient is with history of atrial fibrillation, No anticoagulation in the view of low hemoglobin at 7.2, as per cardiology team recommendation Patient to clarify to me she was not on oxygen at home 08/26/2018 Patient was intubated today after developing respiratory distress secondary to pulmonary edema from a ventricular rate in the view of low ejection fraction of 30-35%.information to continue to try this as patient is sedated and intubated.chest chest x-ray: CHF. Patient was started on Lasix dripas well as amiodarone and metoprolol however at the lower dose as per combat rifle crewmember. REVIEW OF SYSTEMS: patient cannot provide information because she is intubated and sedated medication reviewed: tylenol 100 mg, allopurinol 100 mg, Lipitor 40 mg, klonopin 0.5 mg, Plavix 75 mg, vasotec 1.25 mg, folic a 1 mg, Lasix 60 mg, heparin 14121 U, novolog sliding scale, levemir 30 U, imdur 30 mg, melatonin 3 mg, Zofran 4 mg, protonix 40 mg, senokot-s 1 tab, and triamcinolone topical. Metoprolol 12.5 mg. Amiodarone 200 mg. Paxil 10 mg. Calcitriol 0.25 g.clonidine patch 0.1 mg Objective - Vital Signs Vital signs: Vital Signs Temp 97.6 F 08/26/18 16:00 Pulse 52 L 08/26/18 19:00 Resp 26 H 08/26/18 19:00 BP 147/56 08/26/18 19:00 Pulse Ox 100 08/26/18 19:00 Intake & Output 08/26/18 08/26/18 08/27/18 06:59 18:59 06:59 Intake Total 762.787 0864.127 70 Output Total 1335 1450 60 Balance -338.665 -259.873 10 Weight 95.1 kg 95.1 kg Intake: Intake, IV Titration 940.583 4599.127 20 Amount Furosemide 250 mg In 50 257.167 Sodium Chloride 0.9% 225 ml @ 10 MG/HR 10 mls/hr IVP .Q24H [facility] Rx#: [id number] Heparin Sod,Pork in 0.45% 500 376.299 NaCl 25,000 unit In 0.45 % NaCl 1 500ml.bag @ 10 UNITS/KG/HR 18.96 mls/hr IV .Q24H [facility] Rx#: [id number] Propofol 1,000 mg In 86.335 196.661 Empty Bag 1 bag @ Titrate IV .Q0M [facility] Rx#: [id number] Sodium Chloride 0.9% 1, 240 240 20 000 ml @ 20 mls/hr IV . Q24H [facility] Rx#:[id number] Oral 120 Tube Feeding 60 10 Other 60 40 Output: Urine 1335 1450 60 Other: Voiding Method Indwelling Catheter Indwelling Catheter # Bowel Movements 1 ABP, PAP, CO, CI - Last Documented Arterial Blood Pressure 150/44 - Exam GENERAL: The patient is alert and oriented x3, not in any acute distress. Well developed, well nourished. HEENT: Pupils are round and equally reacting to light. EOMI. No scleral icterus. No conjunctival pallor. Normocephalic, atraumatic. No pharyngeal erythema. No thyromegaly. CARDIOVASCULAR: S1 and S2 present. No murmurs, rubs, or gallops. PULMONARY: Chest is clear to auscultation, no wheezing or crackles. ABDOMEN: Soft, nontender, nondistended, normoactive bowel sounds. No palpable organomegaly. MUSCULOSKELETAL: No joint swelling or deformity. EXTREMITIES: No cyanosis, clubbing, or pedal edema. NEUROLOGICAL: Gross neurological examination did not reveal any focal deficits. SKIN: No rashes. - Labs CBC & Chem 7: 08/26/18 02:17 08/26/18 18:15 Labs: Abnormal Lab Results - Last 24 Hours (Table) 08/25/18 08/26/18 08/26/18 Range/Units 21:43 02:17 02:17 WBC 20.1 H (3.8-10.6) k/uL RBC 3.27 L (3.80-5.40) m/uL Hgb 8.2 L (11.4-16.0) gm/dL Hct 27.4 L (34.0-46.0) % MCH 24.9 L (25.0-35.0) pg MCHC 29.8 L (31.0-37.0) g/dL RDW 17.2 H (11.5-15.5) % Plt Count 524 H (150-450) k/uL Neutrophils # 16.1 H (1.3-7.7) k/uL Monocytes # 1.7 H (0-1.0) k/uL INR 1.2 H (<1.2) APTT 58.1 H (22.0-30.0) sec ABG pH (7.35-7.45) ABG pCO2 (35-45) mmHg ABG pO2 (83-108) mmHg ABG HCO3 (21-25) mmol/L ABG Total CO2 (19-24) mmol/L ABG O2 Saturation (94-97) % Sodium (137-145) mmol/L Chloride (98-107) mmol/L Carbon Dioxide (22-30) mmol/L BUN (7-17) mg/dL Creatinine (0.52-1.04) mg/dL Glucose (74-99) mg/dL POC Glucose (mg/dL) 265 H (75-99) mg/dL Calcium (8.4-10.2) mg/dL 08/26/18 08/26/18 08/26/18 Range/Units 02:17 04:15 08:18 WBC (3.8-10.6) k/uL RBC (3.80-5.40) m/uL Hgb (11.4-16.0) gm/dL Hct (34.0-46.0) % MCH (25.0-35.0) pg MCHC (31.0-37.0) g/dL RDW (11.5-15.5) % Plt Count (150-450) k/uL Neutrophils # (1.3-7.7) k/uL Monocytes # (0-1.0) k/uL INR (<1.2) APTT (22.0-30.0) sec ABG pH (7.35-7.45) ABG pCO2 56 H (35-45) mmHg ABG pO2 (83-108) mmHg ABG HCO3 33 H (21-25) mmol/L ABG Total CO2 34 H (19-24) mmol/L ABG O2 Saturation 99.0 H (94-97) % Sodium 133 L (137-145) mmol/L Chloride 90 L (98-107) mmol/L Carbon Dioxide 32 H (22-30) mmol/L BUN 33 H (7-17) mg/dL Creatinine 1.63 H (0.52-1.04) mg/dL Glucose 208 H (74-99) mg/dL POC Glucose (mg/dL) 183 H (75-99) mg/dL Calcium 8.1 L (8.4-10.2) mg/dL 08/26/18 08/26/18 08/26/18 Range/Units 09:07 11:59 18:12 WBC (3.8-10.6) k/uL RBC (3.80-5.40) m/uL Hgb (11.4-16.0) gm/dL Hct (34.0-46.0) % MCH (25.0-35.0) pg MCHC (31.0-37.0) g/dL RDW (11.5-15.5) % Plt Count (150-450) k/uL Neutrophils # (1.3-7.7) k/uL Monocytes # (0-1.0) k/uL INR (<1.2) APTT (22.0-30.0) sec ABG pH 7.53 H (7.35-7.45) ABG pCO2 (35-45) mmHg ABG pO2 >400 H (83-108) mmHg ABG HCO3 34 H (21-25) mmol/L ABG Total CO2 35 H (19-24) mmol/L ABG O2 Saturation 100.0 H (94-97) % Sodium (137-145) mmol/L Chloride (98-107) mmol/L Carbon Dioxide (22-30) mmol/L BUN (7-17) mg/dL Creatinine (0.52-1.04) mg/dL Glucose (74-99) mg/dL POC Glucose (mg/dL) 159 H 140 H (75-99) mg/dL Calcium (8.4-10.2) mg/dL Microbiology - Last 24 Hours (Table) 08/26/18 13:44 Sputum Culture - Preliminary Sputum 08/22/18 10:27 Blood Culture - Preliminary Blood No Growth after 96 hours Assessment and Plan Assessment: Acute hypoxic respiratory failure, secondary to acute pulmonary edema. Present on admission status post intubation atrial fibrillation's with rapid ventricular rate Acute on chronic diastolic congestive heart failure Ischemic stroke in the left middle cerebral artery with residual right sided hemiplegia and dysarthria. Recent aspiration pneumonia of the right lower lobe, on Augmentin Recent right ankle fractures with medial my last and fibular fracture secondary to fall, been managed with a brace; nonsurgical management Vascular dementia 2 diabetes mellitus and GERD Hyperlipidemia Gestational hypertension Degenerative joint disease Chronic kidney disease stage III Chronic low back pain Chronic urine incontinence Generalized anxiety disorder Moderate mitral and tricuspid regurgitation, nontraumatic secondary pulmonary hypertension Plan: We recommend to continue with the same treatment. Continue with symptomatic treatment. Follow-up cardiology recommendations and their input is appreciated. Pulmonary/critical care R following the case. continue with their recommendation while in the ICU and patient is intubated. Patient was started on heparin drip and Lasix triple GI and DVT prophylaxis. Further recommendations the clinical course of the patient .Prognosis is guarded
[2018-08-26] MEDS: METOPROLOL TARTRATE 12.5 MG TAB PO SCH (20:58)
[2018-08-26] MEDS: ATORVASTATIN 40 MG TAB PO SCH (20:59)
[2018-08-26] MEDS ORDERED: AMIODARONE 200 MG TAB PO SCH (21:00)
[2018-08-26] MEDS: INSULIN DETEMIR 100 UNIT/ML 10 ML VIAL SQ SCH (21:13)
[2018-08-27 00:58] LABS: Glucose,Whole Blood 153 mg/dL (75-99)
[2018-08-27] MEDS: INSULIN ASPART 100 UNIT/ML 1 ML 10 ML VIAL SQ SCH ×5 (00:59→23:41)
[2018-08-27] MEDS: PROPOFOL 1,000 MG in EMPTY BAG 1 BAG IV SCH ×5 (02:49→22:15)
[2018-08-27] MEDS: CLEVIDIPINE BUTYRATE 25 MG in EMPTY BAG 1 BAG IV SCH ×2 (02:54→19:17)
[2018-08-27] MEDS: IPRATROPIUM-ALBUTEROL 3 ML NEB INHALATION SCH ×5 (03:20→19:39)
[2018-08-27] MEDS: ENALAPRILAT 1.25 MG/ML 1 ML VIAL IVP PRN ×2 (04:00→17:28)
[2018-08-27 05:25] LABS: ABG HCO3 34 mmol/L (21-25); ABG Oxygen Saturation 99.8 % (94-97); ABG PCO2 44 mmHg (35-45); ABG PO2 129 mmHg (83-108); ABG TCO2 36 mmol/L (19-24)
[2018-08-27 05:29] LABS: Anisocytosis Slight; HCT 24.8 % (34.0-46.0); HGB 7.4 gm/dL (11.4-16.0); Hypochromasia Marked; MCHC 29.7 g/dL (31.0-37.0); Mean Platelet Volume 7.7; Platelet Count 385 k/uL (150-450); Poikilocytosis Moderate; RBC 2.95 m/uL (3.80-5.40); RDW 17.6 % (11.5-15.5); WBC 14.9 k/uL (3.8-10.6)
[2018-08-27 05:42] LABS: Magnesium 2.2 mg/dL (1.6-2.3); Phosphorus 3.2 mg/dL (2.5-4.5); Potassium 3.3 mmol/L (3.5-5.1)
[2018-08-27 05:53] LABS: Lymphocytes # (M) 2.38 k/uL (1.0-4.8); Neutrophils # (M) 12.22 k/uL (1.3-7.7); Neutrophils % (M) 82 %; Nucleated Red Blood Cells 0 /100 WBC (0-0); Total Cells Counted 100
[2018-08-27] MEDS ORDERED: POTASSIUM CHLORIDE 10 MEQ in WATER FOR INJECTION 1 100ML.BAG IVPB STA (05:55)
[2018-08-27] MEDS: clonazePAM 0.5 MG TAB PO SCH (06:33)
--- NOTE | 2018-08-27 07:55 | P.PN ---
Subjective Progress Note Date: 08/27/18 Principal diagnosis: Acute hypoxic respiratory failure This is a pleasant 73-year-old female patient with known history of coronary artery disease and status post CABG, chronic obstructive pulmonary disease, chronic kidney disease, paroxysmal atrial fibrillation, and history of stroke, was admitted to the intensive care unit with congestive heart failure secondary to diastole dysfunction as well as COPD exacerbation. She underwent an echocardiogram and that revealed low normal LV function with hypertensive heart disease, moderate MR, moderate TR, and severe pulmonary hypertension. The cardiac enzymes are slightly elevated. She continues to be intubated on ventilator and currently she is on 40% FiO2. Hemodynamically she is stable. She continues to be on heparin drip as well as Lasix drip. She has been bradycardic and because of that M going to DC the amiodarone and continue the metoprolol. The patient possibly might be extubated in the next 24 hours. Objective - Vital Signs Vital signs: Vital Signs Temp 97.4 F L 08/27/18 04:00 Pulse 58 L 08/27/18 07:00 Resp 26 H 08/27/18 07:00 BP 126/44 08/27/18 07:00 Pulse Ox 100 08/27/18 07:00 Intake & Output 08/26/18 08/27/18 08/27/18 18:59 06:59 18:59 Intake Total 4711.478 3898.388 237.794 Output Total 1450 870 200 Balance -259.873 382.388 37.794 Weight 95.1 kg 93 kg Intake: Intake, IV Titration 1070.127 690.388 204.794 Amount Furosemide 250 mg In 257.167 Sodium Chloride 0.9% 225 ml @ 10 MG/HR 10 mls/hr IVP .Q24H [facility] Rx#: [id number] Heparin Sod,Pork in 0.45% 376.299 266.112 NaCl 25,000 unit In 0.45 % NaCl 1 500ml.bag @ 10 UNITS/KG/HR 18.96 mls/hr IV .Q24H [facility] Rx#: [id number] Potassium Chloride 10 meq 100 In Water For Injection 1 100ml.bag @ 100 mls/hr IVPB [facility] Rx#: [id number] Propofol 1,000 mg In 196.661 184.276 84.794 Empty Bag 1 bag @ Titrate IV .Q0M [facility] Rx#: [id number] Sodium Chloride 0.9% 1, 240 240 20 000 ml @ 20 mls/hr IV . Q24H [facility] Rx#:[id number] Oral 120 Tube Feeding 60 342 33 Other 60 100 Output: Urine 1450 870 200 Other: Voiding Method Indwelling Catheter Indwelling Catheter ABP, PAP, CO, CI - Last Documented Arterial Blood Pressure 139/34 - Constitutional General appearance: Present: no acute distress - Respiratory Respiratory: bilateral: diminished - Cardiovascular Rhythm: regular Heart sounds: normal: S1, S2 - Labs CBC & Chem 7: 08/27/18 05:00 08/27/18 05:00 Labs: Abnormal Lab Results - Last 24 Hours (Table) 08/26/18 08/26/18 08/26/18 Range/Units 08:18 09:07 11:59 WBC (3.8-10.6) k/uL RBC (3.80-5.40) m/uL Hgb (11.4-16.0) gm/dL Hct (34.0-46.0) % MCHC (31.0-37.0) g/dL RDW (11.5-15.5) % Neutrophils # (Manual) (1.3-7.7) k/uL APTT (22.0-30.0) sec ABG pH 7.53 H (7.35-7.45) ABG pO2 >400 H (83-108) mmHg ABG HCO3 34 H (21-25) mmol/L ABG Total CO2 35 H (19-24) mmol/L ABG O2 Saturation 100.0 H (94-97) % Sodium (137-145) mmol/L Potassium (3.5-5.1) mmol/L Chloride (98-107) mmol/L Carbon Dioxide (22-30) mmol/L BUN (7-17) mg/dL Creatinine (0.52-1.04) mg/dL Glucose (74-99) mg/dL POC Glucose (mg/dL) 183 H 159 H (75-99) mg/dL Calcium (8.4-10.2) mg/dL 08/26/18 08/27/18 08/27/18 Range/Units 18:12 00:54 05:00 WBC 14.9 H (3.8-10.6) k/uL RBC 2.95 L (3.80-5.40) m/uL Hgb 7.4 L (11.4-16.0) gm/dL Hct 24.8 L (34.0-46.0) % MCHC 29.7 L (31.0-37.0) g/dL RDW 17.6 H (11.5-15.5) % Neutrophils # (Manual) 12.22 H (1.3-7.7) k/uL APTT (22.0-30.0) sec ABG pH (7.35-7.45) ABG pO2 (83-108) mmHg ABG HCO3 (21-25) mmol/L ABG Total CO2 (19-24) mmol/L ABG O2 Saturation (94-97) % Sodium (137-145) mmol/L Potassium (3.5-5.1) mmol/L Chloride (98-107) mmol/L Carbon Dioxide (22-30) mmol/L BUN (7-17) mg/dL Creatinine (0.52-1.04) mg/dL Glucose (74-99) mg/dL POC Glucose (mg/dL) 140 H 153 H (75-99) mg/dL Calcium (8.4-10.2) mg/dL 08/27/18 08/27/18 08/27/18 Range/Units 05:00 05:00 05:15 WBC (3.8-10.6) k/uL RBC (3.80-5.40) m/uL Hgb (11.4-16.0) gm/dL Hct (34.0-46.0) % MCHC (31.0-37.0) g/dL RDW (11.5-15.5) % Neutrophils # (Manual) (1.3-7.7) k/uL APTT 92.4 H (22.0-30.0) sec ABG pH 7.50 H (7.35-7.45) ABG pO2 129 H (83-108) mmHg ABG HCO3 34 H (21-25) mmol/L ABG Total CO2 36 H (19-24) mmol/L ABG O2 Saturation 99.8 H (94-97) % Sodium 131 L (137-145) mmol/L Potassium 3.3 L (3.5-5.1) mmol/L Chloride 91 L (98-107) mmol/L Carbon Dioxide 31 H (22-30) mmol/L BUN 36 H (7-17) mg/dL Creatinine 1.63 H (0.52-1.04) mg/dL Glucose 142 H (74-99) mg/dL POC Glucose (mg/dL) (75-99) mg/dL Calcium 8.0 L (8.4-10.2) mg/dL Microbiology - Last 24 Hours (Table) 08/26/18 13:44 Gram Stain - Preliminary Sputum Sputum Culture - Preliminary 08/22/18 10:27 Blood Culture - Preliminary Blood No Growth after 96 hours Assessment and Plan Assessment: Assessment #1 congestive heart failure exacerbation secondary to diastolic dysfunction, acute on chronic #2 acute exacerbation of COPD #3 severe pulmonary hypertension #4 paroxysmal atrial fibrillation #5 coronary artery disease and status post CABG #6 chest discomfort #7 multiple comorbid conditions Plan DC amiodarone Continue the current dose of metoprolol 12.5 mg by mouth twice a day Continue heparin IV and Lasix IV Follow-up with the patient
[2018-08-27 08:09] LABS: Glucose,Whole Blood 168 mg/dL (75-99)
--- NOTE | 2018-08-27 08:18 | XR ---
EXAMINATION TYPE: XR chest 1V portable DATE OF EXAM: 08/27/2018 COMPARISON: 08/26/2018 HISTORY: Tube placement TECHNIQUE: Single frontal view of the chest is obtained. FINDINGS: ET and NG tubes stable. Left-sided central line seen. Postsurgical changes are noted. Calc ification of the pericardium not excluded. There is diffuse interstitial pattern with bilateral conso lidation and pleural effusion. No pneumothorax. Calcifications along the left humeral neck noted and is arthropathy of the shoulders. IMPRESSION: 1. Postsurgical changes with findings suggestive of pulmonary edema. Underlying pneumonia not exclude d. Findings stable.
--- NOTE | 2018-08-27 08:20 | P.PN ---
Subjective Progress Note Date: 08/27/18 Principal diagnosis: Respiratory failure Progress note dated 08/26/2018 This is a 73-year-old female with a history of hypoxemic respiratory failure secondary to pulmonary edema complicated by atrial fibrillation/RVR. Her ejection fraction is diminished at 30-35%. She also has severe pulmonary hypertension by echocardiogram. 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 Apparently last night or so, she developed worsening respiratory failure. Her blood pressure was elevated and she had atrial fibrillation with RVR. She ended up developing clara respiratory failure with hypoxemia and required intubation on August 26 contract associate for heart failure. Currently, she is on the assist control mode rate of 20, tidal volume is 400 FiO2 100% PEEP of 5. Blood gases on those settings include a PaO2 of 100 PaCO2 of 55 and a pH 7.37. We will decrease the tidal volume to 350 and increase the rate to 26. Currently she is on propofol at 35 mics per kilogram per minute, a saline IV at 20 mL an hour heparin via weightbase protocol and Lasix drip at 10 mg an hour. Chest x-ray is consistent with heart failure. The patient will need tube feeds. Vent changes will be made by respiratory. The patient will also need an art line and central line. I did speak to the family in detail. Progress note dated 08/27/2018 73-year-old female with a history of hypoxemic respiratory failure secondary to flash pulmonary edema which was also complicated by atrial fibrillation with rapid ventricular response. Her ejection fraction is diminished at 30-35%. In addition by echocardiogram, she has severe pulmonary hypertension. 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 The patient remains on the volume assist control mode with a rate of 20, tidal volume 350, FiO2 50% and PEEP of 5. Arterial blood gases show a PaO2 of 129 a PaCO2 44 and a pH of 7.50. This is consistent with metabolic alkalosis in part related to volume contraction but also hypokalemia. I did ask the nurse to correct the potassium which was 3.3. The Lasix drip is at 10 mg an hour propofol is a 35 mics per kilogram per minute and heparin is at weightbase protocol. She get a saline IV KVO. Chest x-rays consistent with fluid overload /CHF. Objective - Vital Signs Vital signs: Vital Signs Temp 97.4 F L 08/27/18 04:00 Pulse 58 L 08/27/18 08:07 Resp 26 H 08/27/18 07:00 BP 126/44 08/27/18 07:00 Pulse Ox 100 08/27/18 07:00 Intake & Output 08/26/18 08/27/18 08/27/18 18:59 06:59 18:59 Intake Total 5691.536 9478.388 320.794 Output Total 1450 870 275 Balance -259.873 382.388 45.794 Weight 95.1 kg 93 kg Intake: IV 20 .9 20 Intake, IV Titration 1070.127 690.388 204.794 Amount Furosemide 250 mg In 257.167 Sodium Chloride 0.9% 225 ml @ 10 MG/HR 10 mls/hr IVP .Q24H [facility] Rx#: [id number] Heparin Sod,Pork in 0.45% 376.299 266.112 NaCl 25,000 unit In 0.45 % NaCl 1 500ml.bag @ 10 UNITS/KG/HR 18.96 mls/hr IV .Q24H [facility] Rx#: [id number] Potassium Chloride 10 meq 100 In Water For Injection 1 100ml.bag @ 100 mls/hr IVPB ONCE [facility] Rx#: [id number] Propofol 1,000 mg In 196.661 184.276 84.794 Empty Bag 1 bag @ Titrate IV .Q0M [facility] Rx#: [id number] Sodium Chloride 0.9% 1, 240 240 20 000 ml @ 20 mls/hr IV . Q24H [facility] Rx#:[id number] Oral 120 Tube Feeding 60 342 66 Other 60 100 30 Output: Urine 1450 870 275 Other: Voiding Method Indwelling Catheter Indwelling Catheter ABP, PAP, CO, CI - Last Documented Arterial Blood Pressure 139/34 - Exam No acute distress, sedated, with an oral endotracheal tube and NG tube in place. Mental status cannot be assessed at this time. HEENT examination is grossly unremarkable. Mucous membranes are moist. Neck supple. Full range of motion. No adenopathy thyromegaly or neck vein distention. Cardiovascular examination reveals regular rhythm rate. S1-S2 normal. No S3 or S4. No discernible murmur noted. Heart sounds are distant. Lungs reveal coarse bilateral rhonchi and crackles. Breath sounds are diminished. No wheezes. Breath sounds are equal bilaterally. This essentially been no change in breath sounds compared to yesterday's exam. Abdomen soft and bowel sounds are heard. No masses or tenderness. Extremities are intact. No cyanosis clubbing or edema. Skin is without rash or lesion. Neurologic examination cannot be assessed as the patient is currently sedated. - Labs CBC & Chem 7: 08/27/18 05:00 08/27/18 05:00 Labs: Abnormal Lab Results - Last 24 Hours (Table) 08/26/18 08/26/18 08/26/18 Range/Units 08:18 09:07 11:59 WBC (3.8-10.6) k/uL RBC (3.80-5.40) m/uL Hgb (11.4-16.0) gm/dL Hct (34.0-46.0) % MCHC (31.0-37.0) g/dL RDW (11.5-15.5) % Neutrophils # (Manual) (1.3-7.7) k/uL APTT (22.0-30.0) sec ABG pH 7.53 H (7.35-7.45) ABG pO2 >400 H (83-108) mmHg ABG HCO3 34 H (21-25) mmol/L ABG Total CO2 35 H (19-24) mmol/L ABG O2 Saturation 100.0 H (94-97) % Sodium (137-145) mmol/L Potassium (3.5-5.1) mmol/L Chloride (98-107) mmol/L Carbon Dioxide (22-30) mmol/L BUN (7-17) mg/dL Creatinine (0.52-1.04) mg/dL Glucose (74-99) mg/dL POC Glucose (mg/dL) 183 H 159 H (75-99) mg/dL Calcium (8.4-10.2) mg/dL 08/26/18 08/27/18 08/27/18 Range/Units 18:12 00:54 05:00 WBC 14.9 H (3.8-10.6) k/uL RBC 2.95 L (3.80-5.40) m/uL Hgb 7.4 L (11.4-16.0) gm/dL Hct 24.8 L (34.0-46.0) % MCHC 29.7 L (31.0-37.0) g/dL RDW 17.6 H (11.5-15.5) % Neutrophils # (Manual) 12.22 H (1.3-7.7) k/uL APTT (22.0-30.0) sec ABG pH (7.35-7.45) ABG pO2 (83-108) mmHg ABG HCO3 (21-25) mmol/L ABG Total CO2 (19-24) mmol/L ABG O2 Saturation (94-97) % Sodium (137-145) mmol/L Potassium (3.5-5.1) mmol/L Chloride (98-107) mmol/L Carbon Dioxide (22-30) mmol/L BUN (7-17) mg/dL Creatinine (0.52-1.04) mg/dL Glucose (74-99) mg/dL POC Glucose (mg/dL) 140 H 153 H (75-99) mg/dL Calcium (8.4-10.2) mg/dL 08/27/18 08/27/18 08/27/18 Range/Units 05:00 05:00 05:15 WBC (3.8-10.6) k/uL RBC (3.80-5.40) m/uL Hgb (11.4-16.0) gm/dL Hct (34.0-46.0) % MCHC (31.0-37.0) g/dL RDW (11.5-15.5) % Neutrophils # (Manual) (1.3-7.7) k/uL APTT 92.4 H (22.0-30.0) sec ABG pH 7.50 H (7.35-7.45) ABG pO2 129 H (83-108) mmHg ABG HCO3 34 H (21-25) mmol/L ABG Total CO2 36 H (19-24) mmol/L ABG O2 Saturation 99.8 H (94-97) % Sodium 131 L (137-145) mmol/L Potassium 3.3 L (3.5-5.1) mmol/L Chloride 91 L (98-107) mmol/L Carbon Dioxide 31 H (22-30) mmol/L BUN 36 H (7-17) mg/dL Creatinine 1.63 H (0.52-1.04) mg/dL Glucose 142 H (74-99) mg/dL POC Glucose (mg/dL) (75-99) mg/dL Calcium 8.0 L (8.4-10.2) mg/dL 08/27/18 Range/Units 07:40 WBC (3.8-10.6) k/uL RBC (3.80-5.40) m/uL Hgb (11.4-16.0) gm/dL Hct (34.0-46.0) % MCHC (31.0-37.0) g/dL RDW (11.5-15.5) % Neutrophils # (Manual) (1.3-7.7) k/uL APTT (22.0-30.0) sec ABG pH (7.35-7.45) ABG pO2 (83-108) mmHg ABG HCO3 (21-25) mmol/L ABG Total CO2 (19-24) mmol/L ABG O2 Saturation (94-97) % Sodium (137-145) mmol/L Potassium (3.5-5.1) mmol/L Chloride (98-107) mmol/L Carbon Dioxide (22-30) mmol/L BUN (7-17) mg/dL Creatinine (0.52-1.04) mg/dL Glucose (74-99) mg/dL POC Glucose (mg/dL) 168 H (75-99) mg/dL Calcium (8.4-10.2) mg/dL Microbiology - Last 24 Hours (Table) 08/26/18 13:44 Gram Stain - Preliminary Sputum Sputum Culture - Preliminary 08/22/18 10:27 Blood Culture - Preliminary Blood No Growth after 96 hours Assessment and Plan Assessment: Assessment Acute hypoxemic respiratory failure, secondary to CHF/pulmonary edema and compensated by atrial fibrillation/RVR in a patient with an echocardiogram showing ejection fraction of 30-35%, requiring intubation and mechanical ventilation on August 26. Severe pulmonary hypertension by echocardiogram. 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 Everything else the same. Arterial line and central line will be placed. Patient is currently on propofol at 35 mics per kilogram per minute heparin via weightbase protocol and Lasix drip 10 mg an hour. We'll make sure that with tube feedings are started. Chest x-rays consistent with heart failure/fluid overload. I did speak to the family. Prognosis is guarded given her age. Additional recommendations and suggestions are forthcoming. Microbiology is negative. White count is 20.1, he will may 0.2, hematocrit 27.4 , and platelet count 524,000. Sodium 133, potassium 3.9, chloride is 90, CO2 32 , BUN 33 and creatinine 1.63. Medications are reviewed. Critical care time 34 minutes. Plan dated 08/27/2018 The patient remains on the ventilator. We do drop the FiO2 from 50 to 40%. She remains on IV Lasix, propofol and IV heparin. She is being nourished with Vital AF at a rate of 33 with a goal of 33 mL an hour. I did tell the nurse to replace the past has seen him aggressively which is one of the reasons why she has a metabolic alkalosis. Her potassium this morning was only 3.3. Chest x- ray shows CHF. Microbiologic studies are negative thus far. Labs show a white count of 14.9, hemoglobin 7.4, hematocrit 24.8 and platelet count 385,000. PTT is 92.4. Sodium 131 potassium 3.3 chloride is 91 CO2 31, with a BUN of 36 and creatinine 1.63. Anion gap is normal. Her current medications are reviewed. They appear to be appropriate. We will continue to follow. Prognosis is guarded. Additional recommendations and suggestions are forthcoming. Critical care time 34 minutes Time with Patient: Greater than 30
[2018-08-27] MEDS: ISOSORBIDE MONONITRATE ER 30 MG TAB.ER.24H PO SCH (08:32)
[2018-08-27] MEDS: CLOPIDOGREL 75 MG TAB PO SCH (08:41)
[2018-08-27] MEDS: CYANOCOBALAMIN-FA-PYRIDOXINE 1 EACH TAB PO SCH (08:41)
[2018-08-27] MEDS: PANTOPRAZOLE 40 MG TABLET PO SCH ×2 (08:41→18:10)
[2018-08-27] MEDS: ALLOPURINOL 100 MG TAB PO SCH (08:41)
[2018-08-27] MEDS: PARoxetine 10 MG TAB PO SCH (08:42)
[2018-08-27] MEDS: CHLORHEXIDINE GLUCONATE 15 ML CUP MUCOUS MEM SCH ×2 (08:42→21:20)
[2018-08-27] MEDS: METOPROLOL TARTRATE 12.5 MG TAB PO SCH ×2 (08:44→21:20)
[2018-08-27] MEDS: ONDANSETRON 4 MG TAB PO SCH ×3 (08:44→18:10)
[2018-08-27 11:51] LABS: Glucose,Whole Blood 180 mg/dL (75-99)
[2018-08-27] MEDS ORDERED: POTASSIUM BICARBONATE/CIT AC 20 MEQ TABLET.EFF NG-TUBE SCH (14:00)
[2018-08-27] MEDS: SODIUM CHLORIDE 0.9% 1,000 ML IV SCH (16:25)
[2018-08-27 18:07] LABS: Glucose,Whole Blood 199 mg/dL (75-99)
[2018-08-27] MEDS: FUROSEMIDE 250 MG in SODIUM CHLORIDE 0.9% 225 ML IVP SCH (20:31)
[2018-08-27] MEDS: HEPARIN SOD,PORK IN 0.45% NACL 25,000 UNIT in 0.45% NACL 1 500ML.BAG IV SCH (20:33)
--- NOTE | 2018-08-27 21:19 | P.PN ---
Subjective This is a pleasant 73 years old with previous history of stroke and multi- infarct dementia. Who presents because of dyspnea found to have acute pulmonary edema mostly secondary to atrial fibrillation's with rapid ventricular rate with some elements of LV dysfunction. Patient was admitted and seen by me in the ICU today. His been evaluated by cardiology as well and started on IV diuretics as well as amiodarone. His heart rate is currently better controlled at 71. And blood pressure 155/60. 08/25/2018 Today patient remains in the ICU. She is fully awake. She still have some dyspnea . Patient developed chest pain last night before going to sleep it was about 60/10 in severity, however now is resolved. Sheet Metal Shop Helper evaluated the patient this morning pending, and he recommended metoprolol 25 mg twice a day, patient has high blood pressure 119/67, rest of vitals were stable. WBC 16.4 K. Hemoglobin 7.2. plt 333. Sodium 134, creatinine 1.5, which is close to her baseline of 1.3-1.7. Patient is with history of atrial fibrillation, No anticoagulation in the view of low hemoglobin at 7.2, as per cardiology team recommendation Patient to clarify to me she was not on oxygen at home 08/26/2018 Patient was intubated today after developing respiratory distress secondary to pulmonary edema from a ventricular rate in the view of low ejection fraction of 30-35%.information to continue to try this as patient is sedated and intubated.chest chest x-ray: CHF. Patient was started on Lasix dripas well as amiodarone and metoprolol however at the lower dose as per horse show manager. 08/27/2018 pt remains intubated and sedated . she has mildly impaired cardiac function with reduced EF to 45-50% , associated with atrial fibrillation and rapid ventricular rate, pt presents with pulmonary edema that needed incubation, , however in CXR she has basilar atelectasis but pneumonia could not be excluded with vascular congestion on admission, pt in on lasix drip. she has moderate MR , moderate TR, and severe pulmonary hypertension. she is on heparin drip too. REVIEW OF SYSTEMS: patient cannot provide information because she is intubated and sedated medication reviewed: tylenol 100 mg, allopurinol 100 mg, Lipitor 40 mg, klonopin 0.5 mg, Plavix 75 mg, vasotec 1.25 mg, folic a 1 mg, Lasix 60 mg, heparin 10299 U, novolog sliding scale, levemir 30 U, imdur 30 mg, melatonin 3 mg, Zofran 4 mg, protonix 40 mg, senokot-s 1 tab, and triamcinolone topical. Metoprolol 12.5 mg. Amiodarone 200 mg. Paxil 10 mg. Calcitriol 0.25 g.clonidine patch 0.1 mg Objective - Vital Signs Vital signs: Vital Signs Temp 98.2 F 08/27/18 20:00 Pulse 69 08/27/18 20:00 Resp 14 08/27/18 20:00 BP 143/53 08/27/18 09:00 Pulse Ox 98 08/27/18 20:00 Intake & Output 08/27/18 08/27/18 08/28/18 06:59 18:59 06:59 Intake Total 0352.717 6336.113 339.888 Output Total 870 1397 665 Balance 382.388 85.113 -325.112 Weight 93 kg Intake: IV 220 40 .9 20 Sodium Chloride 0.9% 1, 200 40 000 ml @ 20 mls/hr IV . Q24H [facility] Rx#:[id number] Intake, IV Titration 690.388 646.113 233.888 Amount Furosemide 250 mg In 250 Sodium Chloride 0.9% 225 ml @ 10 MG/HR 10 mls/hr IVP .Q24H [facility] Rx#: [id number] Heparin Sod,Pork in 0.45% 266.112 233.888 NaCl 25,000 unit In 0.45 % NaCl 1 500ml.bag @ 10 UNITS/KG/HR 18.96 mls/hr IV .Q24H [facility] Rx#: [id number] Potassium Chloride 10 meq 100 In Water For Injection 1 100ml.bag @ 100 mls/hr IVPB ONCE [facility] Rx#: [id number] Propofol 1,000 mg In 184.276 276.113 Empty Bag 1 bag @ Titrate IV .Q0M [facility] Rx#: [id number] Sodium Chloride 0.9% 1, 240 20 000 ml @ 20 mls/hr IV . Q24H [facility] Rx#:[id number] Oral 120 Tube Feeding 342 396 66 Other 100 220 Output: Urine 870 1397 665 Other: Voiding Method Indwelling Catheter Indwelling Catheter ABP, PAP, CO, CI - Last Documented Arterial Blood Pressure 128/37 - Exam GENERAL: The patient is alert and oriented x3, not in any acute distress. Well developed, well nourished. HEENT: Pupils are round and equally reacting to light. EOMI. No scleral icterus. No conjunctival pallor. Normocephalic, atraumatic. No pharyngeal erythema. No thyromegaly. CARDIOVASCULAR: S1 and S2 present. No murmurs, rubs, or gallops. PULMONARY: Chest is clear to auscultation, no wheezing or crackles. ABDOMEN: Soft, nontender, nondistended, normoactive bowel sounds. No palpable organomegaly. MUSCULOSKELETAL: No joint swelling or deformity. EXTREMITIES: No cyanosis, clubbing, or pedal edema. NEUROLOGICAL: Gross neurological examination did not reveal any focal deficits. SKIN: No rashes. - Labs CBC & Chem 7: 08/27/18 05:00 08/27/18 12:10 Labs: Abnormal Lab Results - Last 24 Hours (Table) 08/27/18 08/27/18 08/27/18 Range/Units 00:54 05:00 05:00 WBC 14.9 H (3.8-10.6) k/uL RBC 2.95 L (3.80-5.40) m/uL Hgb 7.4 L (11.4-16.0) gm/dL Hct 24.8 L (34.0-46.0) % MCHC 29.7 L (31.0-37.0) g/dL RDW 17.6 H (11.5-15.5) % Neutrophils # (Manual) 12.22 H (1.3-7.7) k/uL APTT (22.0-30.0) sec ABG pH (7.35-7.45) ABG pO2 (83-108) mmHg ABG HCO3 (21-25) mmol/L ABG Total CO2 (19-24) mmol/L ABG O2 Saturation (94-97) % Sodium 131 L (137-145) mmol/L Potassium 3.3 L (3.5-5.1) mmol/L Chloride 91 L (98-107) mmol/L Carbon Dioxide 31 H (22-30) mmol/L BUN 36 H (7-17) mg/dL Creatinine 1.63 H (0.52-1.04) mg/dL Glucose 142 H (74-99) mg/dL POC Glucose (mg/dL) 153 H (75-99) mg/dL Calcium 8.0 L (8.4-10.2) mg/dL 08/27/18 08/27/18 08/27/18 Range/Units 05:00 05:15 07:40 WBC (3.8-10.6) k/uL RBC (3.80-5.40) m/uL Hgb (11.4-16.0) gm/dL Hct (34.0-46.0) % MCHC (31.0-37.0) g/dL RDW (11.5-15.5) % Neutrophils # (Manual) (1.3-7.7) k/uL APTT 92.4 H (22.0-30.0) sec ABG pH 7.50 H (7.35-7.45) ABG pO2 129 H (83-108) mmHg ABG HCO3 34 H (21-25) mmol/L ABG Total CO2 36 H (19-24) mmol/L ABG O2 Saturation 99.8 H (94-97) % Sodium (137-145) mmol/L Potassium (3.5-5.1) mmol/L Chloride (98-107) mmol/L Carbon Dioxide (22-30) mmol/L BUN (7-17) mg/dL Creatinine (0.52-1.04) mg/dL Glucose (74-99) mg/dL POC Glucose (mg/dL) 168 H (75-99) mg/dL Calcium (8.4-10.2) mg/dL 08/27/18 08/27/18 08/27/18 Range/Units 11:49 12:10 18:04 WBC (3.8-10.6) k/uL RBC (3.80-5.40) m/uL Hgb (11.4-16.0) gm/dL Hct (34.0-46.0) % MCHC (31.0-37.0) g/dL RDW (11.5-15.5) % Neutrophils # (Manual) (1.3-7.7) k/uL APTT 53.1 H (22.0-30.0) sec ABG pH (7.35-7.45) ABG pO2 (83-108) mmHg ABG HCO3 (21-25) mmol/L ABG Total CO2 (19-24) mmol/L ABG O2 Saturation (94-97) % Sodium (137-145) mmol/L Potassium (3.5-5.1) mmol/L Chloride (98-107) mmol/L Carbon Dioxide (22-30) mmol/L BUN (7-17) mg/dL Creatinine (0.52-1.04) mg/dL Glucose (74-99) mg/dL POC Glucose (mg/dL) 180 H 199 H (75-99) mg/dL Calcium (8.4-10.2) mg/dL Microbiology - Last 24 Hours (Table) 08/22/18 10:27 Blood Culture - Preliminary Blood No Growth after 120 hours 08/26/18 13:44 Gram Stain - Preliminary Sputum Sputum Culture - Preliminary Assessment and Plan Assessment: Acute hypoxic respiratory failure, secondary to acute pulmonary edema. Present on admission status post intubation atrial fibrillation's with rapid ventricular rate Acute on chronic diastolic congestive heart failure Ischemic stroke in the left middle cerebral artery with residual right sided hemiplegia and dysarthria. Recent aspiration pneumonia of the right lower lobe, on Augmentin Recent right ankle fractures with medial my last and fibular fracture secondary to fall, been managed with a brace; nonsurgical management Vascular dementia 2 diabetes mellitus and GERD Hyperlipidemia Gestational hypertension Degenerative joint disease Chronic kidney disease stage III Chronic low back pain Chronic urine incontinence Generalized anxiety disorder Moderate mitral and tricuspid regurgitation, nontraumatic secondary pulmonary hypertension Plan: We recommend to continue with the same treatment. Continue with symptomatic treatment. Follow-up cardiology recommendations and their input is appreciated. Pulmonary/critical care R following the case. continue with their recommendation while in the ICU and patient is intubated. Patient was started on heparin drip and Lasix triple GI and DVT prophylaxis. Further recommendations the clinical course of the patient .Prognosis is guarded
[2018-08-27] MEDS: ATORVASTATIN 40 MG TAB PO SCH (21:20)
[2018-08-27 21:28] LABS: Glucose,Whole Blood 219 mg/dL (75-99)
[2018-08-27] MEDS: INSULIN DETEMIR 100 UNIT/ML 10 ML VIAL SQ SCH (21:58)
[2018-08-27 23:38] LABS: Glucose,Whole Blood 198 mg/dL (75-99)
[2018-08-28] MEDS: IPRATROPIUM-ALBUTEROL 3 ML NEB INHALATION SCH ×7 (00:28→23:36)
[2018-08-28] MEDS: PROPOFOL 1,000 MG in EMPTY BAG 1 BAG IV SCH ×4 (02:43→21:40)
[2018-08-28] MEDS: CLEVIDIPINE BUTYRATE 25 MG in EMPTY BAG 1 BAG IV SCH ×3 (02:44→23:44)
[2018-08-28 05:23] LABS: ABG HCO3 35 mmol/L (21-25); ABG Oxygen Saturation 97.3 % (94-97); ABG PCO2 48 mmHg (35-45); ABG PH 7.47 (7.35-7.45); ABG PO2 79 mmHg (83-108); ABG TCO2 36 mmol/L (19-24)
[2018-08-28 06:02] LABS: Glucose,Whole Blood 239 mg/dL (75-99)
[2018-08-28] MEDS: INSULIN ASPART 100 UNIT/ML 1 ML 10 ML VIAL SQ SCH ×4 (06:11→23:50)
--- NOTE | 2018-08-28 06:45 | P.PN ---
Subjective Progress Note Date: 08/28/18 Principal diagnosis: Acute hypoxic respiratory failure This is a pleasant 73-year-old female patient with known history of coronary artery disease and status post CABG, chronic obstructive pulmonary disease, chronic kidney disease, paroxysmal atrial fibrillation, and history of stroke, was admitted to the intensive care unit with congestive heart failure secondary to diastole dysfunction as well as COPD exacerbation. She underwent an echocardiogram and that revealed mildly impaired LV function with EF of 45%, moderate MR, moderate TR, and severe pulmonary hypertension. The cardiac enzymes are slightly elevated. She continues to be intubated on ventilator and currently she is on 40% FiO2. Hemodynamically she is stable. The heart rate has improved after I DC the amiodarone yesterday. She continues to be on metoprolol. I am going to DC the heparin IV in view of the margin you know hemoglobin at 7 and the patient has been maintaining normal sinus mechanism during her ICU stay. Follow-up on the blood work from this morning. Objective - Vital Signs Vital signs: Vital Signs Temp 97.9 F 08/28/18 04:00 Pulse 83 08/28/18 06:00 Resp 26 H 08/28/18 06:00 BP 143/53 08/27/18 09:00 Pulse Ox 97 08/28/18 06:00 Intake & Output 08/27/18 08/27/18 08/28/18 06:59 18:59 06:59 Intake Total 7957.277 7785.113 1434.256 Output Total 870 1397 1425 Balance 382.388 85.113 9.256 Weight 93 kg 93.3 kg Intake: IV 220 240 .9 20 Sodium Chloride 0.9% 1, 200 240 000 ml @ 20 mls/hr IV . Q24H [facility] Rx#:[id number] Intake, IV Titration 690.388 646.113 516.256 Amount Clevidipine Butyrate 25 14.9 mg In Empty Bag 1 bag @ 1 MG/HR 2 mls/hr IV .Q24H [facility] Rx#:[id number] Furosemide 250 mg In 250 Sodium Chloride 0.9% 225 ml @ 10 MG/HR 10 mls/hr IVP .Q24H [facility] Rx#: [id number] Heparin Sod,Pork in 0.45% 266.112 233.888 NaCl 25,000 unit In 0.45 % NaCl 1 500ml.bag @ 10 UNITS/KG/HR 18.96 mls/hr IV .Q24H [facility] Rx#: [id number] Potassium Chloride 10 meq 100 In Water For Injection 1 100ml.bag @ 100 mls/hr IVPB ONCE [facility] Rx#: [id number] Propofol 1,000 mg In 184.276 276.113 267.468 Empty Bag 1 bag @ Titrate IV .Q0M [facility] Rx#: [id number] Sodium Chloride 0.9% 1, 240 20 000 ml @ 20 mls/hr IV . Q24H [facility] Rx#:[id number] Oral 120 120 Tube Feeding 342 396 528 Other 100 220 30 Output: Urine 870 1397 1425 Other: Voiding Method Indwelling Catheter Indwelling Catheter Indwelling Catheter ABP, PAP, CO, CI - Last Documented Arterial Blood Pressure 134/31 - Constitutional General appearance: Present: no acute distress - Respiratory Respiratory: bilateral: CTA - Cardiovascular Rhythm: regular Heart sounds: normal: S1, S2 - Labs CBC & Chem 7: 08/27/18 05:00 08/27/18 12:10 Labs: Abnormal Lab Results - Last 24 Hours (Table) 08/27/18 08/27/18 08/27/18 Range/Units 07:40 11:49 12:10 APTT 53.1 H (22.0-30.0) sec ABG pH (7.35-7.45) ABG pCO2 (35-45) mmHg ABG pO2 (83-108) mmHg ABG HCO3 (21-25) mmol/L ABG Total CO2 (19-24) mmol/L ABG O2 Saturation (94-97) % POC Glucose (mg/dL) 168 H 180 H (75-99) mg/dL 08/27/18 08/27/18 08/27/18 Range/Units 18:04 21:26 23:35 APTT (22.0-30.0) sec ABG pH (7.35-7.45) ABG pCO2 (35-45) mmHg ABG pO2 (83-108) mmHg ABG HCO3 (21-25) mmol/L ABG Total CO2 (19-24) mmol/L ABG O2 Saturation (94-97) % POC Glucose (mg/dL) 199 H 219 H 198 H (75-99) mg/dL 08/28/18 08/28/18 Range/Units 05:20 05:59 APTT (22.0-30.0) sec ABG pH 7.47 H (7.35-7.45) ABG pCO2 48 H (35-45) mmHg ABG pO2 79 L (83-108) mmHg ABG HCO3 35 H (21-25) mmol/L ABG Total CO2 36 H (19-24) mmol/L ABG O2 Saturation 97.3 H (94-97) % POC Glucose (mg/dL) 239 H (75-99) mg/dL Microbiology - Last 24 Hours (Table) 08/22/18 10:27 Blood Culture - Preliminary Blood No Growth after 120 hours 08/26/18 13:44 Gram Stain - Preliminary Sputum Sputum Culture - Preliminary Assessment and Plan Assessment: Assessment #1 congestive heart failure exacerbation secondary to diastolic dysfunction, acute on chronic #2 acute exacerbation of COPD #3 severe pulmonary hypertension #4 paroxysmal atrial fibrillation #5 coronary artery disease and status post CABG #6 chest discomfort #7 multiple comorbid conditions Plan DC heparin Continue the current dose of metoprolol 12.5 mg by mouth twice a day Continue Lasix IV Follow-up with the patient
[2018-08-28 07:23] LABS: Anisocytosis Slight; HCT 25.1 % (34.0-46.0); HGB 7.3 gm/dL (11.4-16.0); Hypochromasia Marked; MCH 25.1 pg (25.0-35.0); MCHC 29.3 g/dL (31.0-37.0); MCV 85.5 fL (80.0-100.0); Mean Platelet Volume 7.5; Platelet Count 461 k/uL (150-450); Poikilocytosis Moderate; RBC 2.93 m/uL (3.80-5.40); RDW 17.3 % (11.5-15.5); WBC 20.1 k/uL (3.8-10.6)
--- NOTE | 2018-08-28 07:28 | XR ---
EXAMINATION TYPE: XR chest 1V portable DATE OF EXAM: 08/28/2018 COMPARISON: Chest x-ray 08/27/2018 HISTORY: Intubated TECHNIQUE: Single frontal view of the chest is obtained. FINDINGS: Endotracheal tube and NG tube are overlying appropriate positions, left jugular central ve nous catheter is stable. Patient is post median sternotomy and the heart remains enlarged. Bibasilar increased density persists. There is no evident pneumothorax. Pleural parenchymal changes are stable. IMPRESSION: Correlate for congestive heart failure with basilar effusions, pneumonia not excluded. F ollow-up recommended.
[2018-08-28 07:35] LABS: Potassium 3.8 mmol/L (3.5-5.1)
--- NOTE | 2018-08-28 08:38 | P.PN ---
Subjective Progress Note Date: 08/28/18 Principal diagnosis: Respiratory failure Progress note dated 08/26/2018 This is a 73-year-old female with a history of hypoxemic respiratory failure secondary to pulmonary edema complicated by atrial fibrillation/RVR. Her ejection fraction is diminished at 30-35%. She also has severe pulmonary hypertension by echocardiogram. 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 Apparently last night or so, she developed worsening respiratory failure. Her blood pressure was elevated and she had atrial fibrillation with RVR. 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 Currently, she is on the assist control mode rate of 20, tidal volume is 400 FiO2 100% PEEP of 5. Blood gases on those settings include a PaO2 of 100 PaCO2 of 55 and a pH 7.37. We will decrease the tidal volume to 350 and increase the rate to 26. Currently she is on propofol at 35 mics per kilogram per minute, a saline IV at 20 mL an hour heparin via weightbase protocol and Lasix drip at 10 mg an hour. Chest x-ray is consistent with heart failure. The patient will need tube feeds. Vent changes will be made by respiratory. The patient will also need an art line and central line. I did speak to the family in detail. Progress note dated 08/27/2018 73-year-old female with a history of hypoxemic respiratory failure secondary to flash pulmonary edema which was also complicated by atrial fibrillation with rapid ventricular response. Her ejection fraction is diminished at 30-35%. In addition by echocardiogram, she has severe pulmonary hypertension. 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 The patient remains on the volume assist control mode with a rate of 20, tidal volume 350, FiO2 50% and PEEP of 5. Arterial blood gases show a PaO2 of 129 a PaCO2 44 and a pH of 7.50. This is consistent with metabolic alkalosis in part related to volume contraction but also hypokalemia. I did ask the nurse to correct the potassium which was 3.3. The Lasix drip is at 10 mg an hour propofol is a 35 mics per kilogram per minute and heparin is at weightbase protocol. She get a saline IV KVO. Chest x-rays consistent with fluid overload /CHF. Progress note dated 08/28/2018 73-year-old female with a history of hypoxemic respiratory failure, secondary to flash pulmonary edema complicated by atrial fibrillation/RVR. Her ejection fraction is reduced at 30-35%. By echocardiogram, the patient has severe pulmonary hypertension. 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 The patient remains on the volume assist control mode with a rate of 26, tidal volume 350, FiO2 40% and PEEP of 5. Arterial blood gases show a PaO2 of 79 a PaCO2 of 48 and a pH is 7.47. These arterial blood gases are consistent with a relative hypoxemia and a metabolic alkalosis. The chest x-rays consistent with fluid overload. Microbiologic studies are negative. She remains on vital AF with a rate of 33 and a goal of 33 mL an hour, saline IV at KVO, propofol at 40 mics per kilogram per minute, Cleveprex at 2 mg an hour, and Lasix drip at 10 mg an hour. Her lab data includes a white count of 20.1, hemoglobin 7.3, hematocrit 25.1, and a platelet count of 461,000. In addition, sodium 135, potassium 3.8, chloride 93, CO2 33, the BUN of 36 and a creatinine of 1.69. The patient will have a daily interruption of sedation today to evaluate her as to whether or not she might be a candidate for a spontaneous breathing trial. Objective - Vital Signs Vital signs: Vital Signs Temp 97.9 F 08/28/18 04:00 Pulse 85 08/28/18 08:13 Resp 21 08/28/18 07:00 BP 143/53 08/27/18 09:00 Pulse Ox 97 08/28/18 07:00 Intake & Output 08/27/18 08/28/18 08/28/18 18:59 06:59 18:59 Intake Total 9154.760 0533.256 106 Output Total 1397 1425 115 Balance 85.113 9.256 -9 Weight 93.3 kg Intake: IV 220 240 40 .9 20 Sodium Chloride 0.9% 1, 200 240 40 000 ml @ 20 mls/hr IV . Q24H [facility] Rx#:[id number] Intake, IV Titration 646.113 516.256 Amount Clevidipine Butyrate 25 14.9 mg In Empty Bag 1 bag @ 1 MG/HR 2 mls/hr IV .Q24H [facility] Rx#:[id number] Furosemide 250 mg In 250 Sodium Chloride 0.9% 225 ml @ 10 MG/HR 10 mls/hr IVP .Q24H [facility] Rx#: [id number] Heparin Sod,Pork in 0.45% 233.888 NaCl 25,000 unit In 0.45 % NaCl 1 500ml.bag @ 10 UNITS/KG/HR 18.96 mls/hr IV .Q24H [facility] Rx#: [id number] Potassium Chloride 10 meq 100 In Water For Injection 1 100ml.bag @ 100 mls/hr IVPB ONCE STA Rx#: [id number] Propofol 1,000 mg In 276.113 267.468 Empty Bag 1 bag @ Titrate IV .Q0M [facility] Rx#: [id number] Sodium Chloride 0.9% 1, 20 000 ml @ 20 mls/hr IV . Q24H [facility] Rx#:[id number] Oral 120 Tube Feeding 396 528 66 Other 220 30 Output: Urine 1397 1425 115 Other: Voiding Method Indwelling Catheter Indwelling Catheter ABP, PAP, CO, CI - Last Documented Arterial Blood Pressure 150/47 - Exam No acute distress, sedated, with an oral endotracheal tube and NG tube in place. Mental status cannot be assessed at this time. HEENT examination is grossly unremarkable. Mucous membranes are moist. Neck supple. Full range of motion. No adenopathy thyromegaly or neck vein distention. Cardiovascular examination reveals regular rhythm rate. S1-S2 normal. No S3 or S4. No discernible murmur noted. Heart sounds are distant. Lungs reveal coarse bilateral rhonchi and crackles. Breath sounds are diminished. No wheezes. Breath sounds are equal bilaterally. Breath sounds today, or slightly improved compared to the last 2 days examinations. Abdomen soft and bowel sounds are heard. No masses or tenderness. Extremities are intact. No cyanosis clubbing or edema. Skin is without rash or lesion. Neurologic examination cannot be assessed as the patient is currently sedated. - Labs CBC & Chem 7: 08/28/18 07:05 08/28/18 07:05 Labs: Abnormal Lab Results - Last 24 Hours (Table) 08/27/18 08/27/18 08/27/18 Range/Units 11:49 12:10 18:04 WBC (3.8-10.6) k/uL RBC (3.80-5.40) m/uL Hgb (11.4-16.0) gm/dL Hct (34.0-46.0) % MCHC (31.0-37.0) g/dL RDW (11.5-15.5) % Plt Count (150-450) k/uL APTT 53.1 H (22.0-30.0) sec ABG pH (7.35-7.45) ABG pCO2 (35-45) mmHg ABG pO2 (83-108) mmHg ABG HCO3 (21-25) mmol/L ABG Total CO2 (19-24) mmol/L ABG O2 Saturation (94-97) % Sodium (137-145) mmol/L Chloride (98-107) mmol/L Carbon Dioxide (22-30) mmol/L BUN (7-17) mg/dL Creatinine (0.52-1.04) mg/dL Glucose (74-99) mg/dL POC Glucose (mg/dL) 180 H 199 H (75-99) mg/dL Calcium (8.4-10.2) mg/dL 08/27/18 08/27/18 08/28/18 Range/Units 21:26 23:35 05:20 WBC (3.8-10.6) k/uL RBC (3.80-5.40) m/uL Hgb (11.4-16.0) gm/dL Hct (34.0-46.0) % MCHC (31.0-37.0) g/dL RDW (11.5-15.5) % Plt Count (150-450) k/uL APTT (22.0-30.0) sec ABG pH 7.47 H (7.35-7.45) ABG pCO2 48 H (35-45) mmHg ABG pO2 79 L (83-108) mmHg ABG HCO3 35 H (21-25) mmol/L ABG Total CO2 36 H (19-24) mmol/L ABG O2 Saturation 97.3 H (94-97) % Sodium (137-145) mmol/L Chloride (98-107) mmol/L Carbon Dioxide (22-30) mmol/L BUN (7-17) mg/dL Creatinine (0.52-1.04) mg/dL Glucose (74-99) mg/dL POC Glucose (mg/dL) 219 H 198 H (75-99) mg/dL Calcium (8.4-10.2) mg/dL 08/28/18 08/28/18 08/28/18 Range/Units 05:59 07:05 07:05 WBC 20.1 H (3.8-10.6) k/uL RBC 2.93 L (3.80-5.40) m/uL Hgb 7.3 L (11.4-16.0) gm/dL Hct 25.1 L (34.0-46.0) % MCHC 29.3 L (31.0-37.0) g/dL RDW 17.3 H (11.5-15.5) % Plt Count 461 H (150-450) k/uL APTT (22.0-30.0) sec ABG pH (7.35-7.45) ABG pCO2 (35-45) mmHg ABG pO2 (83-108) mmHg ABG HCO3 (21-25) mmol/L ABG Total CO2 (19-24) mmol/L ABG O2 Saturation (94-97) % Sodium 135 L (137-145) mmol/L Chloride 93 L (98-107) mmol/L Carbon Dioxide 33 H (22-30) mmol/L BUN 36 H (7-17) mg/dL Creatinine 1.69 H (0.52-1.04) mg/dL Glucose 220 H (74-99) mg/dL POC Glucose (mg/dL) 239 H (75-99) mg/dL Calcium 8.0 L (8.4-10.2) mg/dL Microbiology - Last 24 Hours (Table) 08/22/18 10:27 Blood Culture - Preliminary Blood No Growth after 120 hours 08/26/18 13:44 Gram Stain - Preliminary Sputum Sputum Culture - Preliminary Assessment and Plan Assessment: Assessment Acute hypoxemic respiratory failure, secondary to CHF/pulmonary edema and compensated by atrial fibrillation/RVR in a patient with an echocardiogram showing ejection fraction of 30-35%, requiring intubation and mechanical ventilation on August 26. Severe pulmonary hypertension by echocardiogram. 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 Everything else the same. Arterial line and central line will be placed. Patient is currently on propofol at 35 mics per kilogram per minute heparin via weightbase protocol and Lasix drip 10 mg an hour. We'll make sure that with tube feedings are started. Chest x-rays consistent with heart failure/fluid overload. I did speak to the family. Prognosis is guarded given her age. Additional recommendations and suggestions are forthcoming. Microbiology is negative. White count is 20.1, he will may 0.2, hematocrit 27.4 , and platelet count 524,000. Sodium 133, potassium 3.9, chloride is 90, CO2 32 , BUN 33 and creatinine 1.63. Medications are reviewed. Critical care time 34 minutes. Plan dated 08/27/2018 The patient remains on the ventilator. We do drop the FiO2 from 50 to 40%. She remains on IV Lasix, propofol and IV heparin. She is being nourished with Vital AF at a rate of 33 with a goal of 33 mL an hour. I did tell the nurse to replace the past has seen him aggressively which is one of the reasons why she has a metabolic alkalosis. Her potassium this morning was only 3.3. Chest x- ray shows CHF. Microbiologic studies are negative thus far. Labs show a white count of 14.9, hemoglobin 7.4, hematocrit 24.8 and platelet count 385,000. PTT is 92.4. Sodium 131 potassium 3.3 chloride is 91 CO2 31, with a BUN of 36 and creatinine 1.63. Anion gap is normal. Her current medications are reviewed. They appear to be appropriate. We will continue to follow. Prognosis is guarded. Additional recommendations and suggestions are forthcoming. Critical care time 34 minutes Plan dated 08/28/2018 The patient will have a daily interruption of sedation. The patient's heparin had been discontinued. We'll give the patient some additional potassium to correct the metabolic alkalosis. Chest x-ray still shows evidence of fluid overload. Microbiologic studies are negative. Prognosis remains guarded. Labs have been reviewed. Medications have been reviewed. Additional recommendations and suggestions are forthcoming. Critical care time 35 minutes Time with Patient: Greater than 30
[2018-08-28] MEDS: ALLOPURINOL 100 MG TAB PO SCH (08:45)
[2018-08-28] MEDS: PANTOPRAZOLE 40 MG TABLET PO SCH ×2 (08:45→17:30)
[2018-08-28] MEDS: ONDANSETRON 4 MG TAB PO SCH ×3 (08:45→17:30)
[2018-08-28] MEDS: CHLORHEXIDINE GLUCONATE 15 ML CUP MUCOUS MEM SCH ×2 (08:45→21:39)
[2018-08-28] MEDS: CYANOCOBALAMIN-FA-PYRIDOXINE 1 EACH TAB PO SCH (08:46)
[2018-08-28] MEDS: POTASSIUM BICARBONATE/CIT AC 20 MEQ TABLET.EFF NG-TUBE SCH ×3 (08:46→11:28)
[2018-08-28] MEDS: CLOPIDOGREL 75 MG TAB PO SCH (08:46)
[2018-08-28] MEDS: PARoxetine 10 MG TAB PO SCH (08:46)
[2018-08-28] MEDS: METOPROLOL TARTRATE 12.5 MG TAB PO SCH ×2 (08:46→21:39)
[2018-08-28] MEDS: ISOSORBIDE MONONITRATE ER 30 MG TAB.ER.24H PO SCH (09:00)
[2018-08-28 12:00] LABS: Glucose,Whole Blood 218 mg/dL (75-99)
--- NOTE | 2018-08-28 12:54 | CDI ---
Last Revision, October 2017 Documentation Clarification Form Date: 08/28/2018 12:36:42 PM From: Chrissy Elias RN, CCDS Admit Date: 08/22/2018 1:40:00 PM Patient Name: Mishel Jarvis Visit Number: [id number] ATTENTION: The Clinical Documentation Specialists (CDI) and [facility] Coding Staff appreciate your assistance in clarifying documentation. Please respond to the clarification below the line at the bottom and electronically sign. The CDI & [facility] Coding staff will review the response and follow-up if needed. Please note: Queries are made part of the Legal Health Record. If you have any questions, please contact the author of this message via ITS. Nino Swain MD A diagnosis of anemia lacks specificity to accurately reflect your patients severity of condition and clarification is needed. 08/22 EC HPI: "recently discharged from the hospital, she was admitted with anemia, GI bleed, and fall resulting in the right ankle fracture." History/Risk Factors: acute hypoxic respiratory failure, recent aspiration pneumonia, ankle Fx, acute ischemic CVA. CKD stage 3. PHAN Clinical indicators: Hemoglobin: 8.3/7.7/7/7.2 Hematocrit: 27.2/24.8/23.6/24/27.4 Treatment: Folbic 1 tab PO QD IVF @ 20 cc/hr In order to capture the severity of condition, please clarify the type of anemia and etiology if known: Acute blood loss anemia Acute on chronic blood loss anemia Chronic blood loss anemia Iron deficiency anemia Drug induced anemia Nutritional anemia Anemia of chronic kidney disease Anemia of chronic disease (please specify) Unable to determine Other, please specify Please continue to document in your progress notes and discharge summary in order to capture severity of illness and risk of mortality. Include clinical findings that support your diagnosis. unable to determine MTDD
[2018-08-28] MEDS: SODIUM CHLORIDE 0.9% 1,000 ML IV SCH (17:30)
[2018-08-28 18:08] LABS: Glucose,Whole Blood 206 mg/dL (75-99)
[2018-08-28] MEDS: FUROSEMIDE 250 MG in SODIUM CHLORIDE 0.9% 225 ML IVP SCH (19:05)
[2018-08-28] MEDS: ATORVASTATIN 40 MG TAB PO SCH (21:39)
[2018-08-28] MEDS: INSULIN DETEMIR 100 UNIT/ML 10 ML VIAL SQ SCH (21:40)
[2018-08-28 21:41] LABS: Glucose,Whole Blood 191 mg/dL (75-99)
--- NOTE | 2018-08-28 22:15 | P.PN ---
Subjective This is a pleasant 73 years old with previous history of stroke and multi- infarct dementia. Who presents because of dyspnea found to have acute pulmonary edema mostly secondary to atrial fibrillation's with rapid ventricular rate with some elements of LV dysfunction. Patient was admitted and seen by me in the ICU today. His been evaluated by cardiology as well and started on IV diuretics as well as amiodarone. His heart rate is currently better controlled at 71. And blood pressure 155/60. 08/25/2018 Today patient remains in the ICU. She is fully awake. She still have some dyspnea . Patient developed chest pain last night before going to sleep it was about 60/10 in severity, however now is resolved. Steel Heater evaluated the patient this morning pending, and he recommended metoprolol 25 mg twice a day, patient has high blood pressure 119/67, rest of vitals were stable. WBC 16.4 K. Hemoglobin 7.2. plt 333. Sodium 134, creatinine 1.5, which is close to her baseline of 1.3-1.7. Patient is with history of atrial fibrillation, No anticoagulation in the view of low hemoglobin at 7.2, as per cardiology team recommendation Patient to clarify to me she was not on oxygen at home 08/26/2018 Patient was intubated today after developing respiratory distress secondary to pulmonary edema from a ventricular rate in the view of low ejection fraction of 30-35%.information to continue to try this as patient is sedated and intubated.chest chest x-ray: CHF. Patient was started on Lasix dripas well as amiodarone and metoprolol however at the lower dose as per fabrication operator. 08/27/2018 pt remains intubated and sedated . she has mildly impaired cardiac function with reduced EF to 45-50% , associated with atrial fibrillation and rapid ventricular rate, pt presents with pulmonary edema that needed incubation, , however in CXR she has basilar atelectasis but pneumonia could not be excluded with vascular congestion on admission, pt in on lasix drip. she has moderate MR , moderate TR, and severe pulmonary hypertension. she is on heparin drip too. 08/28/2018 pt still intubated , pt is still on lasix drip she is making good urine outpt. heparin drip was stopped as her Hb dropped today to 7.3.e has mildly impaired cardiac function with reduced EF to 45-50% , associated with atrial fibrillation and rapid ventricular rate, pt presents with pulmonary edema that needed incubation, she has moderate MR, moderate TR, and severe pulmonary hypertension. REVIEW OF SYSTEMS: patient cannot provide information because she is intubated and sedated medication reviewed: tylenol 100 mg, allopurinol 100 mg, Lipitor 40 mg, klonopin 0.5 mg, Plavix 75 mg, vasotec 1.25 mg, folic a 1 mg, Lasix 60 mg, heparin 67691 U, novolog sliding scale, levemir 30 U, imdur 30 mg, melatonin 3 mg, Zofran 4 mg, protonix 40 mg, senokot-s 1 tab, and triamcinolone topical. Metoprolol 12.5 mg. Amiodarone 200 mg. Paxil 10 mg. Calcitriol 0.25 g.clonidine patch 0.1 mg Objective - Vital Signs Vital signs: Vital Signs Temp 99.1 F 08/28/18 08:00 Pulse 86 08/28/18 17:00 Resp 26 H 08/28/18 17:00 BP 143/53 08/27/18 09:00 Pulse Ox 98 08/28/18 17:00 Intake & Output 08/27/18 08/28/18 08/28/18 18:59 06:59 18:59 Intake Total 4839.584 1817.256 674.983 Output Total 1397 1425 1245 Balance 85.113 9.256 -570.017 Weight 93.3 kg 93.3 kg Intake: IV 220 240 274 .9 20 .9 pressure bags 54 Sodium Chloride 0.9% 1, 200 240 220 000 ml @ 20 mls/hr IV . Q24H CLAUDE Rx#:[id number] Intake, IV Titration 646.113 516.256 109.983 Amount Clevidipine Butyrate 25 14.9 19.034 mg In Empty Bag 1 bag @ 1 MG/HR 2 mls/hr IV .Q24H CLAUDE Rx#:[id number] Furosemide 250 mg In 250 Sodium Chloride 0.9% 225 ml @ 10 MG/HR 10 mls/hr IVP .Q24H CLAUDE Rx#: [id number] Heparin Sod,Pork in 0.45% 233.888 NaCl 25,000 unit In 0.45 % NaCl 1 500ml.bag @ 10 UNITS/KG/HR 18.96 mls/hr IV .Q24H [facility]UDE Rx#: [id number] Potassium Chloride 10 meq 100 In Water For Injection 1 100ml.bag @ 100 mls/hr IVPB ONCE STA Rx#: [id number] Propofol 1,000 mg In 276.113 267.468 90.949 Empty Bag 1 bag @ Titrate IV .Q0M CLAUDE Rx#: [id number] Sodium Chloride 0.9% 1, 20 000 ml @ 20 mls/hr IV . Q24H CLAU[facility] Rx#:[id number] Oral 120 Tube Feeding 396 528 291 Other 220 30 Output: Urine 1397 1425 1245 Other: Voiding Method Indwelling Catheter Indwelling Catheter Indwelling Catheter ABP, PAP, CO, CI - Last Documented Arterial Blood Pressure 146/45 - Exam GENERAL: The patient is alert and oriented x3, not in any acute distress. Well developed, well nourished. HEENT: Pupils are round and equally reacting to light. EOMI. No scleral icterus. No conjunctival pallor. Normocephalic, atraumatic. No pharyngeal erythema. No thyromegaly. CARDIOVASCULAR: S1 and S2 present. No murmurs, rubs, or gallops. PULMONARY: Chest is clear to auscultation, no wheezing or crackles. ABDOMEN: Soft, nontender, nondistended, normoactive bowel sounds. No palpable organomegaly. MUSCULOSKELETAL: No joint swelling or deformity. EXTREMITIES: No cyanosis, clubbing, or pedal edema. NEUROLOGICAL: Gross neurological examination did not reveal any focal deficits. SKIN: No rashes. - Labs CBC & Chem 7: 08/28/18 07:05 08/28/18 14:30 Labs: Abnormal Lab Results - Last 24 Hours (Table) 08/27/18 08/27/18 08/27/18 Range/Units 18:04 21:26 23:35 WBC (3.8-10.6) k/uL RBC (3.80-5.40) m/uL Hgb (11.4-16.0) gm/dL Hct (34.0-46.0) % MCHC (31.0-37.0) g/dL RDW (11.5-15.5) % Plt Count (150-450) k/uL APTT (22.0-30.0) sec ABG pH (7.35-7.45) ABG pCO2 (35-45) mmHg ABG pO2 (83-108) mmHg ABG HCO3 (21-25) mmol/L ABG Total CO2 (19-24) mmol/L ABG O2 Saturation (94-97) % Sodium (137-145) mmol/L Chloride (98-107) mmol/L Carbon Dioxide (22-30) mmol/L BUN (7-17) mg/dL Creatinine (0.52-1.04) mg/dL Glucose (74-99) mg/dL POC Glucose (mg/dL) 199 H 219 H 198 H (75-99) mg/dL Calcium (8.4-10.2) mg/dL 08/28/18 08/28/18 08/28/18 Range/Units 05:20 05:59 07:05 WBC (3.8-10.6) k/uL RBC (3.80-5.40) m/uL Hgb (11.4-16.0) gm/dL Hct (34.0-46.0) % MCHC (31.0-37.0) g/dL RDW (11.5-15.5) % Plt Count (150-450) k/uL APTT (22.0-30.0) sec ABG pH 7.47 H (7.35-7.45) ABG pCO2 48 H (35-45) mmHg ABG pO2 79 L (83-108) mmHg ABG HCO3 35 H (21-25) mmol/L ABG Total CO2 36 H (19-24) mmol/L ABG O2 Saturation 97.3 H (94-97) % Sodium 135 L (137-145) mmol/L Chloride 93 L (98-107) mmol/L Carbon Dioxide 33 H (22-30) mmol/L BUN 36 H (7-17) mg/dL Creatinine 1.69 H (0.52-1.04) mg/dL Glucose 220 H (74-99) mg/dL POC Glucose (mg/dL) 239 H (75-99) mg/dL Calcium 8.0 L (8.4-10.2) mg/dL 08/28/18 08/28/18 08/28/18 Range/Units 07:05 08:30 11:57 WBC 20.1 H (3.8-10.6) k/uL RBC 2.93 L (3.80-5.40) m/uL Hgb 7.3 L (11.4-16.0) gm/dL Hct 25.1 L (34.0-46.0) % MCHC 29.3 L (31.0-37.0) g/dL RDW 17.3 H (11.5-15.5) % Plt Count 461 H (150-450) k/uL APTT 37.7 H (22.0-30.0) sec ABG pH (7.35-7.45) ABG pCO2 (35-45) mmHg ABG pO2 (83-108) mmHg ABG HCO3 (21-25) mmol/L ABG Total CO2 (19-24) mmol/L ABG O2 Saturation (94-97) % Sodium (137-145) mmol/L Chloride (98-107) mmol/L Carbon Dioxide (22-30) mmol/L BUN (7-17) mg/dL Creatinine (0.52-1.04) mg/dL Glucose (74-99) mg/dL POC Glucose (mg/dL) 218 H (75-99) mg/dL Calcium (8.4-10.2) mg/dL Microbiology - Last 24 Hours (Table) 08/22/18 10:27 Blood Culture - Final Blood No Growth after 144 hours 08/26/18 13:44 Gram Stain - Final Sputum Sputum Culture - Final Assessment and Plan Assessment: Acute hypoxic respiratory failure, secondary to acute pulmonary edema. Present on admission status post intubation atrial fibrillation's with rapid ventricular rate Acute on chronic diastolic congestive heart failure Ischemic stroke in the left middle cerebral artery with residual right sided hemiplegia and dysarthria. Recent aspiration pneumonia of the right lower lobe, on Augmentin Recent right ankle fractures with medial my last and fibular fracture secondary to fall, been managed with a brace; nonsurgical management Vascular dementia 2 diabetes mellitus and GERD Hyperlipidemia Gestational hypertension Degenerative joint disease Chronic kidney disease stage III Chronic low back pain Chronic urine incontinence Generalized anxiety disorder Moderate mitral and tricuspid regurgitation, nontraumatic secondary pulmonary hypertension Plan: We recommend to continue with the same treatment. Continue with symptomatic treatment. Follow-up cardiology recommendations and their input is appreciated. Pulmonary/critical care R following the case. continue with their recommendation while in the ICU and patient is intubated. Patient was started on heparin drip and Lasix triple GI and DVT prophylaxis. Further recommendations the clinical course of the patient .Prognosis is guarded
[2018-08-29 00:25] LABS: Glucose,Whole Blood 178 mg/dL (75-99)
[2018-08-29] MEDS: PROPOFOL 1,000 MG in EMPTY BAG 1 BAG IV SCH ×5 (01:44→20:08)
[2018-08-29] MEDS: IPRATROPIUM-ALBUTEROL 3 ML NEB INHALATION SCH ×6 (03:42→23:36)
[2018-08-29 04:36] LABS: ABG Base Excess 15.1 mmol/L; ABG HCO3 38 mmol/L (21-25); ABG Oxygen Saturation 93.7 % (94-97); ABG PCO2 49 mmHg (35-45); ABG PO2 62 mmHg (83-108); ABG TCO2 40 mmol/L (19-24)
[2018-08-29 04:37] LABS: Anisocytosis Slight; HCT 23.5 % (34.0-46.0); HGB 7.1 gm/dL (11.4-16.0); Hypochromasia Marked; MCHC 30.5 g/dL (31.0-37.0); MCV 85.4 fL (80.0-100.0); Mean Platelet Volume 7.1; Platelet Count 382 k/uL (150-450); Poikilocytosis Moderate; RBC 2.75 m/uL (3.80-5.40); RDW 17.5 % (11.5-15.5); WBC 17.1 k/uL (3.8-10.6)
[2018-08-29 04:38] LABS: Albumin 2.5 g/dL (3.5-5.0); Calcium 7.9 mg/dL (8.4-10.2); Phosphorus 3.3 mg/dL (2.5-4.5); Potassium 3.7 mmol/L (3.5-5.1); Total Bilirubin 0.3 mg/dL (0.2-1.3); Total Protein 5.3 g/dL (6.3-8.2)
[2018-08-29] MEDS: AMIODARONE 450 MG in DEXTROSE 5% IN WATER 250 ML IV SCH ×6 (05:56→20:38)
[2018-08-29] MEDS ORDERED: POTASSIUM BICARBONATE/CIT AC 20 MEQ TABLET.EFF NG-TUBE SCH (06:00)
[2018-08-29] MEDS ORDERED: DEXTROSE 5% IN WATER 100 ML with AMIODARONE 150 MG IV ONE (06:00)
[2018-08-29] MEDS: INSULIN ASPART 100 UNIT/ML 1 ML 10 ML VIAL SQ SCH ×3 (06:33→18:16)
[2018-08-29 06:36] LABS: Glucose,Whole Blood 198 mg/dL (75-99)
[2018-08-29] MEDS: PANTOPRAZOLE 40 MG TABLET PO SCH ×2 (07:11→18:16)
[2018-08-29] MEDS: ONDANSETRON 4 MG TAB PO SCH ×3 (07:11→18:16)
--- NOTE | 2018-08-29 07:20 | P.PN ---
Subjective Progress Note Date: 08/29/18 Principal diagnosis: Acute hypoxic respiratory failure This is a pleasant 73-year-old female patient with known history of coronary artery disease and status post CABG, chronic obstructive pulmonary disease, chronic kidney disease, paroxysmal atrial fibrillation, and history of stroke, was admitted to the intensive care unit with congestive heart failure secondary to diastole dysfunction as well as COPD exacerbation. She underwent an echocardiogram and that revealed mildly impaired LV function with EF of 45%, moderate MR, moderate TR, and severe pulmonary hypertension. The cardiac enzymes are slightly elevated. The patient continues to be intubated on ventilator. Last night she went into an A. fib with RVR and I will start her back on amiodarone IV. She continues to be on metoprolol by mouth. We will also restart her back on heparin IV. Objective - Vital Signs Vital signs: Vital Signs Temp 99 F 08/29/18 00:00 Pulse 84 08/29/18 07:00 Resp 26 H 08/29/18 07:00 BP 143/53 08/27/18 09:00 Pulse Ox 95 08/29/18 07:00 Intake & Output 08/28/18 08/29/18 08/29/18 18:59 06:59 18:59 Intake Total 741.934 819.516 26 Output Total 1365 1675 200 Balance -623.066 -855.484 -174 Weight 93.3 kg 92.4 kg Intake: IV 280 192 26 .9 pressure bags 60 72 6 Sodium Chloride 0.9% 1, 220 120 20 000 ml @ 20 mls/hr IV . Q24H [facility] Rx#:[id number] Intake, IV Titration 129.934 502.516 Amount Clevidipine Butyrate 25 29.934 13.766 mg In Empty Bag 1 bag @ 1 MG/HR 2 mls/hr IV .Q24H [facility] Rx#:[id number] Furosemide 250 mg In 225.667 Sodium Chloride 0.9% 225 ml @ 10 MG/HR 10 mls/hr IVP .Q24H [facility] Rx#: [id number] Propofol 1,000 mg In 100.000 263.083 Empty Bag 1 bag @ Titrate IV .Q0M [facility] Rx#: [id number] Tube Feeding 312 105 Lipid 20 20 .9 pressure bags 20 20 Output: Urine 1365 1675 200 Other: Voiding Method Indwelling Catheter Indwelling Catheter ABP, PAP, CO, CI - Last Documented Arterial Blood Pressure 112/41 - Constitutional General appearance: Present: no acute distress - Respiratory Respiratory: bilateral: CTA - Cardiovascular Rhythm: irregularly irregular Heart sounds: normal: S1, S2 - Labs CBC & Chem 7: 08/29/18 04:20 08/29/18 04:09 Labs: Abnormal Lab Results - Last 24 Hours (Table) 08/28/18 08/28/18 08/28/18 Range/Units 07:05 07:05 08:30 WBC 20.1 H (3.8-10.6) k/uL RBC 2.93 L (3.80-5.40) m/uL Hgb 7.3 L (11.4-16.0) gm/dL Hct 25.1 L (34.0-46.0) % MCHC 29.3 L (31.0-37.0) g/dL RDW 17.3 H (11.5-15.5) % Plt Count 461 H (150-450) k/uL APTT 37.7 H (22.0-30.0) sec ABG pH (7.35-7.45) ABG pCO2 (35-45) mmHg ABG pO2 (83-108) mmHg ABG HCO3 (21-25) mmol/L ABG Total CO2 (19-24) mmol/L ABG O2 Saturation (94-97) % Sodium 135 L (137-145) mmol/L Chloride 93 L (98-107) mmol/L Carbon Dioxide 33 H (22-30) mmol/L BUN 36 H (7-17) mg/dL Creatinine 1.69 H (0.52-1.04) mg/dL Glucose 220 H (74-99) mg/dL POC Glucose (mg/dL) (75-99) mg/dL Calcium 8.0 L (8.4-10.2) mg/dL AST (14-36) U/L Total Protein (6.3-8.2) g/dL Albumin (3.5-5.0) g/dL 08/28/18 08/28/18 08/28/18 Range/Units 11:57 18:05 21:38 WBC (3.8-10.6) k/uL RBC (3.80-5.40) m/uL Hgb (11.4-16.0) gm/dL Hct (34.0-46.0) % MCHC (31.0-37.0) g/dL RDW (11.5-15.5) % Plt Count (150-450) k/uL APTT (22.0-30.0) sec ABG pH (7.35-7.45) ABG pCO2 (35-45) mmHg ABG pO2 (83-108) mmHg ABG HCO3 (21-25) mmol/L ABG Total CO2 (19-24) mmol/L ABG O2 Saturation (94-97) % Sodium (137-145) mmol/L Chloride (98-107) mmol/L Carbon Dioxide (22-30) mmol/L BUN (7-17) mg/dL Creatinine (0.52-1.04) mg/dL Glucose (74-99) mg/dL POC Glucose (mg/dL) 218 H 206 H 191 H (75-99) mg/dL Calcium (8.4-10.2) mg/dL AST (14-36) U/L Total Protein (6.3-8.2) g/dL Albumin (3.5-5.0) g/dL 08/28/18 08/29/18 08/29/18 Range/Units 23:47 04:09 04:20 WBC 17.1 H (3.8-10.6) k/uL RBC 2.75 L (3.80-5.40) m/uL Hgb 7.1 L (11.4-16.0) gm/dL Hct 23.5 L (34.0-46.0) % MCHC 30.5 L (31.0-37.0) g/dL RDW 17.5 H (11.5-15.5) % Plt Count (150-450) k/uL APTT (22.0-30.0) sec ABG pH (7.35-7.45) ABG pCO2 (35-45) mmHg ABG pO2 (83-108) mmHg ABG HCO3 (21-25) mmol/L ABG Total CO2 (19-24) mmol/L ABG O2 Saturation (94-97) % Sodium 135 L (137-145) mmol/L Chloride 91 L (98-107) mmol/L Carbon Dioxide 35 H (22-30) mmol/L BUN 37 H (7-17) mg/dL Creatinine 1.68 H (0.52-1.04) mg/dL Glucose 142 H (74-99) mg/dL POC Glucose (mg/dL) 178 H (75-99) mg/dL Calcium 7.9 L (8.4-10.2) mg/dL AST 101 H (14-36) U/L Total Protein 5.3 L (6.3-8.2) g/dL Albumin 2.5 L (3.5-5.0) g/dL 08/29/18 08/29/18 Range/Units 04:34 06:18 WBC (3.8-10.6) k/uL RBC (3.80-5.40) m/uL Hgb (11.4-16.0) gm/dL Hct (34.0-46.0) % MCHC (31.0-37.0) g/dL RDW (11.5-15.5) % Plt Count (150-450) k/uL APTT (22.0-30.0) sec ABG pH 7.50 H (7.35-7.45) ABG pCO2 49 H (35-45) mmHg ABG pO2 62 L (83-108) mmHg ABG HCO3 38 H (21-25) mmol/L ABG Total CO2 40 H (19-24) mmol/L ABG O2 Saturation 93.7 L (94-97) % Sodium (137-145) mmol/L Chloride (98-107) mmol/L Carbon Dioxide (22-30) mmol/L BUN (7-17) mg/dL Creatinine (0.52-1.04) mg/dL Glucose (74-99) mg/dL POC Glucose (mg/dL) 198 H (75-99) mg/dL Calcium (8.4-10.2) mg/dL AST (14-36) U/L Total Protein (6.3-8.2) g/dL Albumin (3.5-5.0) g/dL Microbiology - Last 24 Hours (Table) 08/22/18 10:27 Blood Culture - Final Blood No Growth after 144 hours 08/26/18 13:44 Gram Stain - Final Sputum Sputum Culture - Final Assessment and Plan Assessment: Assessment #1 congestive heart failure exacerbation secondary to diastolic dysfunction, acute on chronic #2 acute exacerbation of COPD #3 severe pulmonary hypertension #4 paroxysmal atrial fibrillation #5 coronary artery disease and status post CABG #6 chest discomfort #7 multiple comorbid conditions Plan The amiodarone was restarted and the heparin was restarted Continue the current dose of metoprolol 12.5 mg by mouth twice a day Continue Lasix IV Follow-up with the patient
[2018-08-29] MEDS: CHLORHEXIDINE GLUCONATE 15 ML CUP MUCOUS MEM SCH ×2 (08:06→20:08)
[2018-08-29] MEDS: ALLOPURINOL 100 MG TAB PO SCH (08:06)
[2018-08-29] MEDS: METOPROLOL TARTRATE 12.5 MG TAB PO SCH ×2 (08:06→20:08)
[2018-08-29] MEDS: CLOPIDOGREL 75 MG TAB PO SCH (08:06)
[2018-08-29] MEDS: ISOSORBIDE MONONITRATE ER 30 MG TAB.ER.24H PO SCH (08:06)
[2018-08-29] MEDS: HEPARIN SOD,PORK IN 0.45% NACL 25,000 UNIT in 0.45% NACL 1 500ML.BAG IV SCH (08:08)
[2018-08-29] MEDS: CYANOCOBALAMIN-FA-PYRIDOXINE 1 EACH TAB PO SCH (08:12)
[2018-08-29] MEDS: PARoxetine 10 MG TAB PO SCH (08:12)
[2018-08-29] MEDS ORDERED: CALCITRIOL 0.25 MCG CAP PO SCH (09:00)
--- NOTE | 2018-08-29 09:28 | XR ---
EXAMINATION TYPE: XR chest 1V portable DATE OF EXAM: 08/29/2018 COMPARISON: 08/28/2018 HISTORY: Shortness of breath requiring intubation TECHNIQUE: Single frontal view of the chest is obtained. FINDINGS: ET and NG tube stable. Central line stable. Postsurgical change noted with bilateral conso lidation and pleural effusion. Diffuse interstitial pattern. 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 Arthropathy of the shoulders with diffuse osteopenia. IMPRESSION: 1. Diffuse pleural-parenchymal changes are stable correlate for pulmonary edema versus diffuse pneumo jeovanny.
--- NOTE | 2018-08-29 09:44 | P.PN ---
Subjective Progress Note Date: 08/29/18 Principal diagnosis: Acute hypoxemic respiratory failure secondary to pulmonary edema Progress note dated 08/26/2018 This is a 73-year-old female with a history of hypoxemic respiratory failure secondary to pulmonary edema complicated by atrial fibrillation/RVR. Her ejection fraction is diminished at 30-35%. She also has severe pulmonary hypertension by echocardiogram. 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 Apparently last night or so, she developed worsening respiratory failure. Her blood pressure was elevated and she had atrial fibrillation with RVR. 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 Currently, she is on the assist control mode rate of 20, tidal volume is 400 FiO2 100% PEEP of 5. Blood gases on those settings include a PaO2 of 100 PaCO2 of 55 and a pH 7.37. We will decrease the tidal volume to 350 and increase the rate to 26. Currently she is on propofol at 35 mics per kilogram per minute, a saline IV at 20 mL an hour heparin via weightbase protocol and Lasix drip at 10 mg an hour. Chest x-ray is consistent with heart failure. The patient will need tube feeds. Vent changes will be made by respiratory. The patient will also need an art line and central line. I did speak to the family in detail. Progress note dated 08/27/2018 73-year-old female with a history of hypoxemic respiratory failure secondary to flash pulmonary edema which was also complicated by atrial fibrillation with rapid ventricular response. Her ejection fraction is diminished at 30-35%. In addition by echocardiogram, she has severe pulmonary hypertension. 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 The patient remains on the volume assist control mode with a rate of 20, tidal volume 350, FiO2 50% and PEEP of 5. Arterial blood gases show a PaO2 of 129 a PaCO2 44 and a pH of 7.50. This is consistent with metabolic alkalosis in part related to volume contraction but also hypokalemia. I did ask the nurse to correct the potassium which was 3.3. The Lasix drip is at 10 mg an hour propofol is a 35 mics per kilogram per minute and heparin is at weightbase protocol. She get a saline IV KVO. Chest x-rays consistent with fluid overload /CHF. Progress note dated 08/28/2018 73-year-old female with a history of hypoxemic respiratory failure, secondary to flash pulmonary edema complicated by atrial fibrillation/RVR. Her ejection fraction is reduced at 30-35%. By echocardiogram, the patient has severe pulmonary hypertension. 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 The patient remains on the volume assist control mode with a rate of 26, tidal volume 350, FiO2 40% and PEEP of 5. Arterial blood gases show a PaO2 of 79 a PaCO2 of 48 and a pH is 7.47. These arterial blood gases are consistent with a relative hypoxemia and a metabolic alkalosis. The chest x-rays consistent with fluid overload. Microbiologic studies are negative. She remains on vital AF with a rate of 33 and a goal of 33 mL an hour, saline IV at KVO, propofol at 40 mics per kilogram per minute, Cleveprex at 2 mg an hour, and Lasix drip at 10 mg an hour. Her lab data includes a white count of 20.1, hemoglobin 7.3, hematocrit 25.1, and a platelet count of 461,000. In addition, sodium 135, potassium 3.8, chloride 93, CO2 33, the BUN of 36 and a creatinine of 1.69. The patient will have a daily interruption of sedation today to evaluate her as to whether or not she might be a candidate for a spontaneous breathing trial. On 08/29/2018 patient seen in follow-up in the intensive care unit, she remains intubated, sedated, on mechanical ventilator, current vent settings are assist- control mode with a rate of 26 breaths per minute, tidal vital 350, FiO2 40%, PEEP of 5. This morning his blood gases show pO2 of 62, pCO2 49, pH of 7.5. Maintenance IV fluid include 0.9 normal saline at a rate of 20 ML per hour, Lasix drip at 10 mg per hour, Diprivan and is at 40 mics per kilo per minute, amiodarone at 1 mg/m, heparin drip is at 11 units per kilo per hour. Patient is afebrile, hemodynamically stable. Today's chest x-ray was reviewed, and shows persistent changes consistent with pleural effusions, and CHF. Patient is having recurrent episodes of A. fib RVR, she was placed on amiodarone drip and cardiology. Currently heart rate is 92-103 BPM. Yesterday she was given a sedation holiday, she started waking up, and following coming, she has severe generalized weakness, and she was unable to move her upper extremities, she was able to wiggle her toes on her right foot, not much movement with the left foot , no facial asymmetry, EOMs are intact. Afebrile, microbiology results have been reviewed, sputum and blood cultures remain negative. Today's blood work has been reviewed, WBC 17.1, hemoglobin is 7.1, serum sodium is 135, chloride is 91, CO2 is 35, B1 is 37 and creatinine is 1.68. Renal profile has remained relatively stable. She is producing urine in the order of 100-200 ML per hour, she is -1478 mL net fluid balance over the last 24 hours, her weight is down by 0.9 kg in the last 24 hours. Objective - Vital Signs Vital signs: Vital Signs Temp 97.9 F 08/29/18 08:00 Pulse 103 H 08/29/18 08:30 Resp 29 H 08/29/18 08:30 BP 124/72 08/29/18 08:30 Pulse Ox 96 08/29/18 08:30 Intake & Output 08/28/18 08/29/18 08/29/18 18:59 06:59 18:59 Intake Total 741.934 819.516 113.067 Output Total 1365 1675 375 Balance -623.066 -855.484 -261.933 Weight 93.3 kg 92.4 kg Intake: IV 280 192 52 .9 pressure bags 60 72 12 Sodium Chloride 0.9% 1, 220 120 40 000 ml @ 20 mls/hr IV . Q24H [facility] Rx#:[id number] Intake, IV Titration 129.934 502.516 10.067 Amount Clevidipine Butyrate 25 29.934 13.766 10.067 mg In Empty Bag 1 bag @ 1 MG/HR 2 mls/hr IV .Q24H [facility] Rx#:[id number] Furosemide 250 mg In 225.667 Sodium Chloride 0.9% 225 ml @ 10 MG/HR 10 mls/hr IVP .Q24H [facility] Rx#: [id number] Propofol 1,000 mg In 100.000 263.083 Empty Bag 1 bag @ Titrate IV .Q0M [facility] Rx#: [id number] Tube Feeding 312 105 21 Lipid 20 20 .9 pressure bags 20 20 Other 30 Output: Urine 1365 1675 375 Other: Voiding Method Indwelling Catheter Indwelling Catheter ABP, PAP, CO, CI - Last Documented Arterial Blood Pressure 139/49 - Exam No acute distress, sedated, with an oral endotracheal tube and NG tube in place. Mental status cannot be assessed at this time. HEENT examination is grossly unremarkable. Mucous membranes are moist. Neck supple. Full range of motion. No adenopathy thyromegaly or neck vein distention. Cardiovascular examination reveals irregular rhythm rate. S1-S2 normal. No S3 or S4. No discernible murmur noted. Heart sounds are distant. Lungs reveal coarse bilateral rhonchi and crackles. Breath sounds are diminished. No wheezes. Breath sounds are equal bilaterally. Breath sounds today, or slightly improved compared to the last 2 days examinations. Abdomen soft and bowel sounds are heard. No masses or tenderness. Extremities are intact. No cyanosis clubbing or edema. Skin is without rash or lesion. Neurologic examination cannot be assessed as the patient is currently sedated. - Labs CBC & Chem 7: 08/29/18 04:20 08/29/18 04:09 Labs: Abnormal Lab Results - Last 24 Hours (Table) 08/28/18 08/28/18 08/28/18 Range/Units 11:57 18:05 21:38 WBC (3.8-10.6) k/uL RBC (3.80-5.40) m/uL Hgb (11.4-16.0) gm/dL Hct (34.0-46.0) % MCHC (31.0-37.0) g/dL RDW (11.5-15.5) % ABG pH (7.35-7.45) ABG pCO2 (35-45) mmHg ABG pO2 (83-108) mmHg ABG HCO3 (21-25) mmol/L ABG Total CO2 (19-24) mmol/L ABG O2 Saturation (94-97) % Sodium (137-145) mmol/L Chloride (98-107) mmol/L Carbon Dioxide (22-30) mmol/L BUN (7-17) mg/dL Creatinine (0.52-1.04) mg/dL Glucose (74-99) mg/dL POC Glucose (mg/dL) 218 H 206 H 191 H (75-99) mg/dL Calcium (8.4-10.2) mg/dL AST (14-36) U/L Total Protein (6.3-8.2) g/dL Albumin (3.5-5.0) g/dL 08/28/18 08/29/18 08/29/18 Range/Units 23:47 04:09 04:20 WBC 17.1 H (3.8-10.6) k/uL RBC 2.75 L (3.80-5.40) m/uL Hgb 7.1 L (11.4-16.0) gm/dL Hct 23.5 L (34.0-46.0) % MCHC 30.5 L (31.0-37.0) g/dL RDW 17.5 H (11.5-15.5) % ABG pH (7.35-7.45) ABG pCO2 (35-45) mmHg ABG pO2 (83-108) mmHg ABG HCO3 (21-25) mmol/L ABG Total CO2 (19-24) mmol/L ABG O2 Saturation (94-97) % Sodium 135 L (137-145) mmol/L Chloride 91 L (98-107) mmol/L Carbon Dioxide 35 H (22-30) mmol/L BUN 37 H (7-17) mg/dL Creatinine 1.68 H (0.52-1.04) mg/dL Glucose 142 H (74-99) mg/dL POC Glucose (mg/dL) 178 H (75-99) mg/dL Calcium 7.9 L (8.4-10.2) mg/dL AST 101 H (14-36) U/L Total Protein 5.3 L (6.3-8.2) g/dL Albumin 2.5 L (3.5-5.0) g/dL 08/29/18 08/29/18 Range/Units 04:34 06:18 WBC (3.8-10.6) k/uL RBC (3.80-5.40) m/uL Hgb (11.4-16.0) gm/dL Hct (34.0-46.0) % MCHC (31.0-37.0) g/dL RDW (11.5-15.5) % ABG pH 7.50 H (7.35-7.45) ABG pCO2 49 H (35-45) mmHg ABG pO2 62 L (83-108) mmHg ABG HCO3 38 H (21-25) mmol/L ABG Total CO2 40 H (19-24) mmol/L ABG O2 Saturation 93.7 L (94-97) % Sodium (137-145) mmol/L Chloride (98-107) mmol/L Carbon Dioxide (22-30) mmol/L BUN (7-17) mg/dL Creatinine (0.52-1.04) mg/dL Glucose (74-99) mg/dL POC Glucose (mg/dL) 198 H (75-99) mg/dL Calcium (8.4-10.2) mg/dL AST (14-36) U/L Total Protein (6.3-8.2) g/dL Albumin (3.5-5.0) g/dL Microbiology - Last 24 Hours (Table) 08/22/18 10:27 Blood Culture - Final Blood No Growth after 144 hours 08/26/18 13:44 Gram Stain - Final Sputum Sputum Culture - Final Assessment and Plan Plan: Assessment: Acute hypoxemic respiratory failure, secondary to CHF/pulmonary edema and compensated by atrial fibrillation/RVR in a patient with an echocardiogram showing ejection fraction of 30-35%, requiring intubation and mechanical ventilation on August 26. Severe pulmonary hypertension by echocardiogram. 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 Chest x-ray has been reviewed by Dr. Draper, shows persistent changes consistent with bilateral pleural effusions, and CHF. IV diuresis, with IV Lasix, patient is having recurrent episodes of A. fib RVR, she has been started on amiodarone drip per cardiology. In view of her significant changes consistent with CHF and recurrent A. fib RVR patient will likely remain on ventilator support, after the sedation holiday has been completed patient will be re-sedated. Repeat chest x-ray in the morning, repeat blood work in the morning, continue monitoring electrolytes, renal profile. Continue GI and DVT prophylaxis. I performed a history & physical examination of the patient and discussed their management with my nurse practitioner, Amita Hinojosa. I reviewed the nurse practitioner's note and agree with the documented findings and plan of care. Lung sounds are positive for crackles bilateral bases. The findings and the impression was discussed with the patient. I attest to the documentation by the nurse practitioner. Time with Patient: Greater than 30
[2018-08-29] MEDS ORDERED: POTASSIUM BICARBONATE/CIT AC 20 MEQ TABLET.EFF NG-TUBE ONE ×2 (12:00→14:00)
[2018-08-29 12:15] LABS: Glucose,Whole Blood 196 mg/dL (75-99)
[2018-08-29] MEDS: CLEVIDIPINE BUTYRATE 25 MG in EMPTY BAG 1 BAG IV SCH ×2 (13:38→22:43)
[2018-08-29] MEDS: SODIUM CHLORIDE 0.9% 1,000 ML IV SCH (14:49)
[2018-08-29 18:13] LABS: Glucose,Whole Blood 177 mg/dL (75-99)
[2018-08-29] MEDS: HEPARIN SODIUM,PORCINE 5,000 UNIT/ML 1 ML VIAL IV PRN (19:04)
[2018-08-29] MEDS: ATORVASTATIN 40 MG TAB PO SCH (20:08)
[2018-08-29] MEDS: INSULIN DETEMIR 100 UNIT/ML 10 ML VIAL SQ SCH (20:17)
[2018-08-29 20:19] LABS: Glucose,Whole Blood 163 mg/dL (75-99)
--- NOTE | 2018-08-29 23:04 | P.PN ---
Subjective This is a pleasant 73 years old with previous history of stroke and multi- infarct dementia. Who presents because of dyspnea found to have acute pulmonary edema mostly secondary to atrial fibrillation's with rapid ventricular rate with some elements of LV dysfunction. Patient was admitted and seen by me in the ICU today. His been evaluated by cardiology as well and started on IV diuretics as well as amiodarone. His heart rate is currently better controlled at 71. And blood pressure 155/60. 08/25/2018 Today patient remains in the ICU. She is fully awake. She still have some dyspnea . Patient developed chest pain last night before going to sleep it was about 60/10 in severity, however now is resolved. [employer] Field Supervisor evaluated the patient this morning pending, and he recommended metoprolol 25 mg twice a day, patient has high blood pressure 119/67, rest of vitals were stable. WBC 16.4 K. Hemoglobin 7.2. plt 333. Sodium 134, creatinine 1.5, which is close to her baseline of 1.3-1.7. Patient is with history of atrial fibrillation, No anticoagulation in the view of low hemoglobin at 7.2, as per cardiology team recommendation Patient to clarify to me she was not on oxygen at home 08/26/2018 Patient was intubated today after developing respiratory distress secondary to pulmonary edema from a ventricular rate in the view of low ejection fraction of 30-35%.information to continue to try this as patient is sedated and intubated.chest chest x-ray: CHF. Patient was started on Lasix dripas well as amiodarone and metoprolol however at the lower dose as per hides inspector. 08/27/2018 pt remains intubated and sedated . she has mildly impaired cardiac function with reduced EF to 45-50% , associated with atrial fibrillation and rapid ventricular rate, pt presents with pulmonary edema that needed incubation, , however in CXR she has basilar atelectasis but pneumonia could not be excluded with vascular congestion on admission, pt in on lasix drip. she has moderate MR , moderate TR, and severe pulmonary hypertension. she is on heparin drip too. 08/28/2018 pt still intubated , pt is still on lasix drip she is making good urine outpt. heparin drip was stopped as her Hb dropped today to 7.3.e has mildly impaired cardiac function with reduced EF to 45-50% , associated with atrial fibrillation and rapid ventricular rate, pt presents with pulmonary edema that needed incubation, she has moderate MR, moderate TR, and severe pulmonary hypertension. 08/29/2018 pt still intubated , pt is still on lasix drip she is making good urine outpt. heparin drip was stopped as her Hb dropped today to 7.3 and 7.1. has mildly impaired cardiac function with reduced EF to 45-50% , associated with atrial fibrillation and rapid ventricular rate, pt presents with pulmonary edema that needed incubation, she has moderate MR, moderate TR, and severe pulmonary hypertension. placed on amiodarone drip today REVIEW OF SYSTEMS: patient cannot provide information because she is intubated and sedated medication reviewed: tylenol 100 mg, allopurinol 100 mg, Lipitor 40 mg, klonopin 0.5 mg, Plavix 75 mg, vasotec 1.25 mg, folic a 1 mg, Lasix 60 mg, heparin 29838 U, novolog sliding scale, levemir 30 U, imdur 30 mg, melatonin 3 mg, Zofran 4 mg, protonix 40 mg, senokot-s 1 tab, and triamcinolone topical. Metoprolol 12.5 mg. Amiodarone 200 mg. Paxil 10 mg. Calcitriol 0.25 g.clonidine patch 0.1 mg Objective - Vital Signs Vital signs: Vital Signs Temp 98.3 F 08/29/18 20:00 Pulse 67 08/29/18 21:00 Resp 26 H 08/29/18 21:00 BP 145/57 08/29/18 19:00 Pulse Ox 93 L 08/29/18 21:00 Intake & Output 08/29/18 08/29/18 08/30/18 06:59 18:59 06:59 Intake Total 9588.910 2190.743 400.218 Output Total 1675 1660 695 Balance -564.484 -560.257 -294.782 Weight 92.4 kg Intake: IV 192 312 104 .9 pressure bags 72 72 24 Sodium Chloride 0.9% 1, 120 240 80 000 ml @ 20 mls/hr IV . Q24H [facility] Rx#:[id number] Intake, IV Titration 502.516 445.743 233.218 Amount Amiodarone 450 mg In 239.113 120.82 Dextrose 5% in Water 250 ml @ 1 MG/MIN 34.53 mls/ hr IV .Q7H31M [facility] Rx#: [id number] Clevidipine Butyrate 25 13.766 35.634 32.3 mg In Empty Bag 1 bag @ 1 MG/HR 2 mls/hr IV .Q24H [facility] Rx#:[id number] Furosemide 250 mg In 225.667 Sodium Chloride 0.9% 225 ml @ 10 MG/HR 10 mls/hr IVP .Q24H [facility] Rx#: [id number] Heparin Sod,Pork in 0.45% 1.722 NaCl 25,000 unit In 0.45 % NaCl 1 500ml.bag @ 20 mls/hr IV .Q24H [facility] Rx#: [id number] Propofol 1,000 mg In 263.083 169.274 80.098 Empty Bag 1 bag @ Titrate IV .Q0M [facility] Rx#: [id number] Oral 21 Tube Feeding 336 252 42 Lipid 20 .9 pressure bags 20 Other 60 90 Output: Urine 1675 1660 695 Other: Voiding Method Indwelling Catheter Indwelling Catheter Indwelling Catheter ABP, PAP, CO, CI - Last Documented Arterial Blood Pressure 84/55 - Exam GENERAL: The patient is alert and oriented x3, not in any acute distress. Well developed, well nourished. HEENT: Pupils are round and equally reacting to light. EOMI. No scleral icterus. No conjunctival pallor. Normocephalic, atraumatic. No pharyngeal erythema. No thyromegaly. CARDIOVASCULAR: S1 and S2 present. No murmurs, rubs, or gallops. PULMONARY: Chest is clear to auscultation, no wheezing or crackles. ABDOMEN: Soft, nontender, nondistended, normoactive bowel sounds. No palpable organomegaly. MUSCULOSKELETAL: No joint swelling or deformity. EXTREMITIES: No cyanosis, clubbing, or pedal edema. NEUROLOGICAL: Gross neurological examination did not reveal any focal deficits. SKIN: No rashes. - Labs CBC & Chem 7: 08/29/18 04:20 08/29/18 10:40 Labs: Abnormal Lab Results - Last 24 Hours (Table) 08/28/18 08/29/18 08/29/18 Range/Units 23:47 04:09 04:20 WBC 17.1 H (3.8-10.6) k/uL RBC 2.75 L (3.80-5.40) m/uL Hgb 7.1 L (11.4-16.0) gm/dL Hct 23.5 L (34.0-46.0) % MCHC 30.5 L (31.0-37.0) g/dL RDW 17.5 H (11.5-15.5) % APTT (22.0-30.0) sec ABG pH (7.35-7.45) ABG pCO2 (35-45) mmHg ABG pO2 (83-108) mmHg ABG HCO3 (21-25) mmol/L ABG Total CO2 (19-24) mmol/L ABG O2 Saturation (94-97) % Sodium 135 L (137-145) mmol/L Chloride 91 L (98-107) mmol/L Carbon Dioxide 35 H (22-30) mmol/L BUN 37 H (7-17) mg/dL Creatinine 1.68 H (0.52-1.04) mg/dL Glucose 142 H (74-99) mg/dL POC Glucose (mg/dL) 178 H (75-99) mg/dL Calcium 7.9 L (8.4-10.2) mg/dL AST 101 H (14-36) U/L Total Protein 5.3 L (6.3-8.2) g/dL Albumin 2.5 L (3.5-5.0) g/dL 08/29/18 08/29/18 08/29/18 Range/Units 04:34 06:18 11:51 WBC (3.8-10.6) k/uL RBC (3.80-5.40) m/uL Hgb (11.4-16.0) gm/dL Hct (34.0-46.0) % MCHC (31.0-37.0) g/dL RDW (11.5-15.5) % APTT (22.0-30.0) sec ABG pH 7.50 H (7.35-7.45) ABG pCO2 49 H (35-45) mmHg ABG pO2 62 L (83-108) mmHg ABG HCO3 38 H (21-25) mmol/L ABG Total CO2 40 H (19-24) mmol/L ABG O2 Saturation 93.7 L (94-97) % Sodium (137-145) mmol/L Chloride (98-107) mmol/L Carbon Dioxide (22-30) mmol/L BUN (7-17) mg/dL Creatinine (0.52-1.04) mg/dL Glucose (74-99) mg/dL POC Glucose (mg/dL) 198 H 196 H (75-99) mg/dL Calcium (8.4-10.2) mg/dL AST (14-36) U/L Total Protein (6.3-8.2) g/dL Albumin (3.5-5.0) g/dL 08/29/18 08/29/18 08/29/18 Range/Units 14:50 17:58 20:16 WBC (3.8-10.6) k/uL RBC (3.80-5.40) m/uL Hgb (11.4-16.0) gm/dL Hct (34.0-46.0) % MCHC (31.0-37.0) g/dL RDW (11.5-15.5) % APTT 41.2 H (22.0-30.0) sec ABG pH (7.35-7.45) ABG pCO2 (35-45) mmHg ABG pO2 (83-108) mmHg ABG HCO3 (21-25) mmol/L ABG Total CO2 (19-24) mmol/L ABG O2 Saturation (94-97) % Sodium (137-145) mmol/L Chloride (98-107) mmol/L Carbon Dioxide (22-30) mmol/L BUN (7-17) mg/dL Creatinine (0.52-1.04) mg/dL Glucose (74-99) mg/dL POC Glucose (mg/dL) 177 H 163 H (75-99) mg/dL Calcium (8.4-10.2) mg/dL AST (14-36) U/L Total Protein (6.3-8.2) g/dL Albumin (3.5-5.0) g/dL Assessment and Plan Assessment: Acute hypoxic respiratory failure, secondary to acute pulmonary edema. Present on admission status post intubation atrial fibrillation's with rapid ventricular rate Acute on chronic diastolic congestive heart failure Ischemic stroke in the left middle cerebral artery with residual right sided hemiplegia and dysarthria. Recent aspiration pneumonia of the right lower lobe, on Augmentin Recent right ankle fractures with medial my last and fibular fracture secondary to fall, been managed with a brace; nonsurgical management Vascular dementia 2 diabetes mellitus and GERD Hyperlipidemia Gestational hypertension Degenerative joint disease Chronic kidney disease stage III Chronic low back pain Chronic urine incontinence Generalized anxiety disorder Moderate mitral and tricuspid regurgitation, nontraumatic secondary pulmonary hypertension Plan: We recommend to continue with the same treatment. Continue with symptomatic treatment. Follow-up cardiology recommendations and their input is appreciated. Pulmonary/critical care R following the case. continue with their recommendation while in the ICU and patient is intubated. Patient was started on heparin drip and Lasix triple GI and DVT prophylaxis. Further recommendations the clinical course of the patient .Prognosis is guarded
[2018-08-29] MEDS ORDERED: POTASSIUM BICARBONATE/CIT AC 20 MEQ TABLET.EFF PO ONE (23:58)
[2018-08-30] MEDS: INSULIN ASPART 100 UNIT/ML 1 ML 10 ML VIAL SQ SCH ×4 (00:13→18:39)
[2018-08-30 00:18] LABS: Glucose,Whole Blood 167 mg/dL (75-99)
[2018-08-30] MEDS: PROPOFOL 1,000 MG in EMPTY BAG 1 BAG IV SCH ×2 (00:58→05:11)
[2018-08-30] MEDS: FUROSEMIDE 250 MG in SODIUM CHLORIDE 0.9% 225 ML IVP SCH (01:28)
[2018-08-30] MEDS: AMIODARONE 450 MG in DEXTROSE 5% IN WATER 250 ML IV SCH ×4 (03:18→18:24)
[2018-08-30] MEDS: IPRATROPIUM-ALBUTEROL 3 ML NEB INHALATION SCH ×5 (04:30→20:07)
[2018-08-30 04:45] LABS: Anisocytosis Slight; HCT 23.2 % (34.0-46.0); HGB 7.1 gm/dL (11.4-16.0); Hypochromasia Marked; MCH 25.6 pg (25.0-35.0); MCHC 30.7 g/dL (31.0-37.0); MCV 83.1 fL (80.0-100.0); Mean Platelet Volume 7.6; Microcytosis Slight; Platelet Count 360 k/uL (150-450); Poikilocytosis Slight; RBC 2.79 m/uL (3.80-5.40); RDW 18.1 % (11.5-15.5)
[2018-08-30 05:06] LABS: ABG Base Excess 15.7 mmol/L; ABG HCO3 38 mmol/L (21-25); ABG Oxygen Saturation 98.1 % (94-97); ABG PCO2 46 mmHg (35-45); ABG PH 7.53 (7.35-7.45); ABG PO2 82 mmHg (83-108); ABG TCO2 40 mmol/L (19-24)
[2018-08-30 05:23] LABS: Albumin 2.6 g/dL (3.5-5.0); Calcium 8.3 mg/dL (8.4-10.2); Magnesium 2.1 mg/dL (1.6-2.3); Phosphorus 4.1 mg/dL (2.5-4.5); Potassium 4.2 mmol/L (3.5-5.1); Total Bilirubin 0.4 mg/dL (0.2-1.3); Total Protein 5.6 g/dL (6.3-8.2)
[2018-08-30] MEDS ORDERED: POTASSIUM BICARBONATE/CIT AC 20 MEQ TABLET.EFF PO ONE (05:27)
[2018-08-30 05:48] LABS: Glucose,Whole Blood 167 mg/dL (75-99)
[2018-08-30 06:39] LABS: Band Neutrophils % 2 %; Neutrophils % (M) 83 %; Nucleated Red Blood Cells 1 /100 WBC (0-0); Total Cells Counted 200
[2018-08-30 06:40] LABS: Eosinophils # (M) 0.73 k/uL (0-0.7); Lymphocytes # (M) 1.27 k/uL (1.0-4.8); Monocytes # (M) 1.09 k/uL (0-1.0); Polychromasia Present; Target Cells Present; WBC 18.2 k/uL (3.8-10.6)
[2018-08-30] MEDS: HEPARIN SOD,PORK IN 0.45% NACL 25,000 UNIT in 0.45% NACL 1 500ML.BAG IV SCH (06:40)
[2018-08-30] MEDS: PANTOPRAZOLE 40 MG TABLET PO SCH ×2 (06:41→17:16)
[2018-08-30] MEDS: ONDANSETRON 4 MG TAB PO SCH ×3 (06:41→17:16)
[2018-08-30 06:43] LABS: Large Platelets Present
[2018-08-30 06:47] LABS: Ovalocytes Present
--- NOTE | 2018-08-30 07:43 | P.PN ---
Subjective Progress Note Date: 08/30/18 Principal diagnosis: Respiratory failure Progress note dated 08/26/2018 This is a 73-year-old female with a history of hypoxemic respiratory failure secondary to pulmonary edema complicated by atrial fibrillation/RVR. Her ejection fraction is diminished at 30-35%. She also has severe pulmonary hypertension by echocardiogram. 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 Apparently last night or so, she developed worsening respiratory failure. Her blood pressure was elevated and she had atrial fibrillation with RVR. She ended up developing clara respiratory failure with hypoxemia and required intubation on August 26 negative notcher for heart failure. Currently, she is on the assist control mode rate of 20, tidal volume is 400 FiO2 100% PEEP of 5. Blood gases on those settings include a PaO2 of 100 PaCO2 of 55 and a pH 7.37. We will decrease the tidal volume to 350 and increase the rate to 26. Currently she is on propofol at 35 mics per kilogram per minute, a saline IV at 20 mL an hour heparin via weightbase protocol and Lasix drip at 10 mg an hour. Chest x-ray is consistent with heart failure. The patient will need tube feeds. Vent changes will be made by respiratory. The patient will also need an art line and central line. I did speak to the family in detail. Progress note dated 08/27/2018 73-year-old female with a history of hypoxemic respiratory failure secondary to flash pulmonary edema which was also complicated by atrial fibrillation with rapid ventricular response. Her ejection fraction is diminished at 30-35%. In addition by echocardiogram, she has severe pulmonary hypertension. 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 The patient remains on the volume assist control mode with a rate of 20, tidal volume 350, FiO2 50% and PEEP of 5. Arterial blood gases show a PaO2 of 129 a PaCO2 44 and a pH of 7.50. This is consistent with metabolic alkalosis in part related to volume contraction but also hypokalemia. I did ask the nurse to correct the potassium which was 3.3. The Lasix drip is at 10 mg an hour propofol is a 35 mics per kilogram per minute and heparin is at weightbase protocol. She get a saline IV KVO. Chest x-rays consistent with fluid overload /CHF. Progress note dated 08/28/2018 73-year-old female with a history of hypoxemic respiratory failure, secondary to flash pulmonary edema complicated by atrial fibrillation/RVR. Her ejection fraction is reduced at 30-35%. By echocardiogram, the patient has severe pulmonary hypertension. 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 The patient remains on the volume assist control mode with a rate of 26, tidal volume 350, FiO2 40% and PEEP of 5. Arterial blood gases show a PaO2 of 79 a PaCO2 of 48 and a pH is 7.47. These arterial blood gases are consistent with a relative hypoxemia and a metabolic alkalosis. The chest x-rays consistent with fluid overload. Microbiologic studies are negative. She remains on vital AF with a rate of 33 and a goal of 33 mL an hour, saline IV at KVO, propofol at 40 mics per kilogram per minute, Cleveprex at 2 mg an hour, and Lasix drip at 10 mg an hour. Her lab data includes a white count of 20.1, hemoglobin 7.3, hematocrit 25.1, and a platelet count of 461,000. In addition, sodium 135, potassium 3.8, chloride 93, CO2 33, the BUN of 36 and a creatinine of 1.69. The patient will have a daily interruption of sedation today to evaluate her as to whether or not she might be a candidate for a spontaneous breathing trial. Progress note dated 08/30/2018 This is a 73-year-old female with history of hypoxemic respiratory failure requiring intubation and mechanical ventilation secondary to flash pulmonary edema. Her respiratory failure was complicated by atrial fibrillation and RVR. In addition, she has an ejection fraction of about 30%. 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 Currently, the patient's on the volume assist control mode with a rate of 26, tidal volume 350, FiO2 40%, and PEEP of 5. Arterial blood gases show a PaO2 of 82 PaCO2 46 and pH of 7.53. Her IVs include a saline IV at 20 mL an hour, Lasix drip at 10 mg an hour, propofol at 40 mics per kilogram per minute, Cleveprex 1 mg per hour, amiodarone at 0.5 mg/m and heparin via weightbase protocol. Chest x-ray shows only minimal improvement of the lung cohen secondary to fluid overload/pulmonary edema. Yesterday, we did do a daily interruption of sedation but we did not do a spontaneous breathing trial given her poor oxygenation. Microbiologic studies continue to be negative. Chest x-ray continues to show fluid overload with bilateral effusions. Objective - Vital Signs Vital signs: Vital Signs Temp 97.8 F 08/30/18 04:00 Pulse 71 08/30/18 07:23 Resp 26 H 08/30/18 06:00 BP 145/57 08/29/18 19:00 Pulse Ox 96 08/30/18 06:00 Intake & Output 08/29/18 08/30/18 08/30/18 18:59 06:59 18:59 Intake Total 2707.060 4295.333 Output Total 1660 1610 Balance -560.257 -64.667 Weight 91.4 kg Intake: IV 312 312 .9 pressure bags 72 72 Sodium Chloride 0.9% 1, 240 240 000 ml @ 20 mls/hr IV . Q24H [facility] Rx#:[id number] Intake, IV Titration 445.743 807.333 Amount Amiodarone 450 mg In 239.113 235.887 Dextrose 5% in Water 250 ml @ 1 MG/MIN 34.53 mls/ hr IV .Q7H31M [facility] Rx#: [id number] Clevidipine Butyrate 25 35.634 44.567 mg In Empty Bag 1 bag @ 1 MG/HR 2 mls/hr IV .Q24H [facility] Rx#:[id number] Furosemide 250 mg In 250 Sodium Chloride 0.9% 225 ml @ 10 MG/HR 10 mls/hr IVP .Q24H [facility] Rx#: [id number] Heparin Sod,Pork in 0.45% 1.722 3.297 NaCl 25,000 unit In 0.45 % NaCl 1 500ml.bag @ 20 mls/hr IV .Q24H [facility] Rx#: [id number] Propofol 1,000 mg In 169.274 273.582 Empty Bag 1 bag @ Titrate IV .Q0M [facility] Rx#: [id number] Oral 21 Tube Feeding 252 315 Other 90 90 Output: Urine 1660 1610 Other: Voiding Method Indwelling Catheter Indwelling Catheter ABP, PAP, CO, CI - Last Documented Arterial Blood Pressure 141/46 - Exam No acute distress, sedated, with an oral endotracheal tube and NG tube in place. Mental status cannot be assessed at this time. HEENT examination is grossly unremarkable. Mucous membranes are moist. Neck supple. Full range of motion. No adenopathy thyromegaly or neck vein distention. Cardiovascular examination reveals regular rhythm rate. S1-S2 normal. No S3 or S4. No discernible murmur noted. Heart sounds are distant. Heart rate is 83 bpm Lungs reveal coarse bilateral rhonchi and crackles. Breath sounds are diminished. No wheezes. Breath sounds are equal bilaterally. Breath sounds appear to be about the same as they have been for the last couple of days. Abdomen soft and bowel sounds are heard. No masses or tenderness. Extremities are intact. No cyanosis clubbing or edema. Skin is without rash or lesion. Neurologic examination cannot be assessed as the patient is currently sedated. - Labs CBC & Chem 7: 08/30/18 04:24 08/30/18 04:24 Labs: Abnormal Lab Results - Last 24 Hours (Table) 08/29/18 08/29/18 08/29/18 Range/Units 11:51 14:50 17:58 WBC (3.8-10.6) k/uL RBC (3.80-5.40) m/uL Hgb (11.4-16.0) gm/dL Hct (34.0-46.0) % MCHC (31.0-37.0) g/dL RDW (11.5-15.5) % Neutrophils # (Manual) (1.3-7.7) k/uL Monocytes # (Manual) (0-1.0) k/uL Eosinophils # (Manual) (0-0.7) k/uL Nucleated RBCs (0-0) /100 WBC APTT 41.2 H (22.0-30.0) sec ABG pH (7.35-7.45) ABG pCO2 (35-45) mmHg ABG pO2 (83-108) mmHg ABG HCO3 (21-25) mmol/L ABG Total CO2 (19-24) mmol/L ABG O2 Saturation (94-97) % Sodium (137-145) mmol/L Chloride (98-107) mmol/L Carbon Dioxide (22-30) mmol/L BUN (7-17) mg/dL Creatinine (0.52-1.04) mg/dL Glucose (74-99) mg/dL POC Glucose (mg/dL) 196 H 177 H (75-99) mg/dL Calcium (8.4-10.2) mg/dL AST (14-36) U/L Total Protein (6.3-8.2) g/dL Albumin (3.5-5.0) g/dL 08/29/18 08/29/18 08/30/18 Range/Units 20:16 22:34 00:04 WBC (3.8-10.6) k/uL RBC (3.80-5.40) m/uL Hgb (11.4-16.0) gm/dL Hct (34.0-46.0) % MCHC (31.0-37.0) g/dL RDW (11.5-15.5) % Neutrophils # (Manual) (1.3-7.7) k/uL Monocytes # (Manual) (0-1.0) k/uL Eosinophils # (Manual) (0-0.7) k/uL Nucleated RBCs (0-0) /100 WBC APTT 80.4 H (22.0-30.0) sec ABG pH (7.35-7.45) ABG pCO2 (35-45) mmHg ABG pO2 (83-108) mmHg ABG HCO3 (21-25) mmol/L ABG Total CO2 (19-24) mmol/L ABG O2 Saturation (94-97) % Sodium (137-145) mmol/L Chloride (98-107) mmol/L Carbon Dioxide (22-30) mmol/L BUN (7-17) mg/dL Creatinine (0.52-1.04) mg/dL Glucose (74-99) mg/dL POC Glucose (mg/dL) 163 H 167 H (75-99) mg/dL Calcium (8.4-10.2) mg/dL AST (14-36) U/L Total Protein (6.3-8.2) g/dL Albumin (3.5-5.0) g/dL 08/30/18 08/30/18 08/30/18 Range/Units 04:24 04:24 04:24 WBC 18.2 H (3.8-10.6) k/uL RBC 2.79 L (3.80-5.40) m/uL Hgb 7.1 L (11.4-16.0) gm/dL Hct 23.2 L (34.0-46.0) % MCHC 30.7 L (31.0-37.0) g/dL RDW 18.1 H (11.5-15.5) % Neutrophils # (Manual) 15.40 H (1.3-7.7) k/uL Monocytes # (Manual) 1.09 H (0-1.0) k/uL Eosinophils # (Manual) 0.73 H (0-0.7) k/uL Nucleated RBCs 1 H (0-0) /100 WBC APTT 52.1 H (22.0-30.0) sec ABG pH (7.35-7.45) ABG pCO2 (35-45) mmHg ABG pO2 (83-108) mmHg ABG HCO3 (21-25) mmol/L ABG Total CO2 (19-24) mmol/L ABG O2 Saturation (94-97) % Sodium 132 L (137-145) mmol/L Chloride 90 L (98-107) mmol/L Carbon Dioxide 36 H (22-30) mmol/L BUN 36 H (7-17) mg/dL Creatinine 1.67 H (0.52-1.04) mg/dL Glucose 165 H (74-99) mg/dL POC Glucose (mg/dL) (75-99) mg/dL Calcium 8.3 L (8.4-10.2) mg/dL AST 83 H (14-36) U/L Total Protein 5.6 L (6.3-8.2) g/dL Albumin 2.6 L (3.5-5.0) g/dL 08/30/18 08/30/18 Range/Units 05:00 05:42 WBC (3.8-10.6) k/uL RBC (3.80-5.40) m/uL Hgb (11.4-16.0) gm/dL Hct (34.0-46.0) % MCHC (31.0-37.0) g/dL RDW (11.5-15.5) % Neutrophils # (Manual) (1.3-7.7) k/uL Monocytes # (Manual) (0-1.0) k/uL Eosinophils # (Manual) (0-0.7) k/uL Nucleated RBCs (0-0) /100 WBC APTT (22.0-30.0) sec ABG pH 7.53 H (7.35-7.45) ABG pCO2 46 H (35-45) mmHg ABG pO2 82 L (83-108) mmHg ABG HCO3 38 H (21-25) mmol/L ABG Total CO2 40 H (19-24) mmol/L ABG O2 Saturation 98.1 H (94-97) % Sodium (137-145) mmol/L Chloride (98-107) mmol/L Carbon Dioxide (22-30) mmol/L BUN (7-17) mg/dL Creatinine (0.52-1.04) mg/dL Glucose (74-99) mg/dL POC Glucose (mg/dL) 167 H (75-99) mg/dL Calcium (8.4-10.2) mg/dL AST (14-36) U/L Total Protein (6.3-8.2) g/dL Albumin (3.5-5.0) g/dL Assessment and Plan Assessment: Assessment Acute hypoxemic respiratory failure, secondary to CHF/pulmonary edema and compensated by atrial fibrillation/RVR in a patient with an echocardiogram showing ejection fraction of 30-35%, requiring intubation and mechanical ventilation on August 26. Severe pulmonary hypertension by echocardiogram. 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 Everything else the same. Arterial line and central line will be placed. Patient is currently on propofol at 35 mics per kilogram per minute heparin via weightbase protocol and Lasix drip 10 mg an hour. We'll make sure that with tube feedings are started. Chest x-rays consistent with heart failure/fluid overload. I did speak to the family. Prognosis is guarded given her age. Additional recommendations and suggestions are forthcoming. Microbiology is negative. White count is 20.1, he will may 0.2, hematocrit 27.4 , and platelet count 524,000. Sodium 133, potassium 3.9, chloride is 90, CO2 32 , BUN 33 and creatinine 1.63. Medications are reviewed. Critical care time 34 minutes. Plan dated 08/27/2018 The patient remains on the ventilator. We do drop the FiO2 from 50 to 40%. She remains on IV Lasix, propofol and IV heparin. She is being nourished with Vital AF at a rate of 33 with a goal of 33 mL an hour. I did tell the nurse to replace the past has seen him aggressively which is one of the reasons why she has a metabolic alkalosis. Her potassium this morning was only 3.3. Chest x- ray shows CHF. Microbiologic studies are negative thus far. Labs show a white count of 14.9, hemoglobin 7.4, hematocrit 24.8 and platelet count 385,000. PTT is 92.4. Sodium 131 potassium 3.3 chloride is 91 CO2 31, with a BUN of 36 and creatinine 1.63. Anion gap is normal. Her current medications are reviewed. They appear to be appropriate. We will continue to follow. Prognosis is guarded. Additional recommendations and suggestions are forthcoming. Critical care time 34 minutes Plan dated 08/28/2018 The patient will have a daily interruption of sedation. The patient's heparin had been discontinued. We'll give the patient some additional potassium to correct the metabolic alkalosis. Chest x-ray still shows evidence of fluid overload. Microbiologic studies are negative. Prognosis remains guarded. Labs have been reviewed. Medications have been reviewed. Additional recommendations and suggestions are forthcoming. Critical care time 35 minutes The patient remains on a number of IV drips including Lasix, propofol, Cleveprex , amiodarone, and heparin. The labs today include a white count of 18.2 hemoglobin 7.1 hematocrit 23.2 and platelet count 360,000. PTT is 52.1. Arterial blood gases continued to show a metabolic alkalosis. Sodium is 132, potassium 4.2, chlorides 90 CO2 36 BUN 36 and creatinine 1.67. We will check on the patient's bicarbonate concentration on admission. This might be a post hypercapnic alkalosis and/or a metabolic alkalosis induced by hypokalemia and volume contraction given the fact she is on Lasix drip. Overall prognosis remains guarded. We will do a daily interruption of sedation and hopefully a spontaneous breathing trial today. Chest x-ray my opinion is a bit better today on Mrs. Jarvis. Critical care time 36 minutes Time with Patient: Greater than 30
--- NOTE | 2018-08-30 07:53 | P.PN ---
Subjective Progress Note Date: 08/30/18 Principal diagnosis: Acute hypoxic respiratory failure This is a pleasant 73-year-old female patient with known history of coronary artery disease and status post CABG, chronic obstructive pulmonary disease, chronic kidney disease, paroxysmal atrial fibrillation, and history of stroke, was admitted to the intensive care unit with congestive heart failure secondary to diastole dysfunction as well as COPD exacerbation. She underwent an echocardiogram and that revealed mildly impaired LV function with EF of 45%, moderate MR, moderate TR, and severe pulmonary hypertension. The cardiac enzymes are slightly elevated. On follow-up with the patient today, August 302017, the patient continues to be intubated on ventilator. She is in normal sinus mechanism. She is on amiodarone IV. She is on heparin IV. She continues to require 40% FiO2. Not on any vasopressors. Objective - Vital Signs Vital signs: Vital Signs Temp 97.8 F 08/30/18 04:00 Pulse 71 08/30/18 07:23 Resp 26 H 08/30/18 06:00 BP 145/57 08/29/18 19:00 Pulse Ox 96 08/30/18 06:00 Intake & Output 08/29/18 08/30/18 08/30/18 18:59 06:59 18:59 Intake Total 3014.865 7923.333 Output Total 1660 1610 Balance -560.257 -64.667 Weight 91.4 kg Intake: IV 312 312 .9 pressure bags 72 72 Sodium Chloride 0.9% 1, 240 240 000 ml @ 20 mls/hr IV . Q24H [facility] Rx#:[id number] Intake, IV Titration 445.743 807.333 Amount Amiodarone 450 mg In 239.113 235.887 Dextrose 5% in Water 250 ml @ 1 MG/MIN 34.53 mls/ hr IV .Q7H31M [facility] Rx#: [id number] Clevidipine Butyrate 25 35.634 44.567 mg In Empty Bag 1 bag @ 1 MG/HR 2 mls/hr IV .Q24H [facility] Rx#:[id number] Furosemide 250 mg In 250 Sodium Chloride 0.9% 225 ml @ 10 MG/HR 10 mls/hr IVP .Q24H [facility] Rx#: [id number] Heparin Sod,Pork in 0.45% 1.722 3.297 NaCl 25,000 unit In 0.45 % NaCl 1 500ml.bag @ 20 mls/hr IV .Q24H [facility] Rx#: [id number] Propofol 1,000 mg In 169.274 273.582 Empty Bag 1 bag @ Titrate IV .Q0M [facility] Rx#: [id number] Oral 21 Tube Feeding 252 315 Other 90 90 Output: Urine 1660 1610 Other: Voiding Method Indwelling Catheter Indwelling Catheter ABP, PAP, CO, CI - Last Documented Arterial Blood Pressure 141/46 - Constitutional General appearance: Present: no acute distress - Respiratory Respiratory: bilateral: diminished - Cardiovascular Heart sounds: normal: S1, S2 Abnormal Heart Sounds: Present: systolic murmur - Labs CBC & Chem 7: 08/30/18 04:24 08/30/18 04:24 Labs: Abnormal Lab Results - Last 24 Hours (Table) 08/29/18 08/29/18 08/29/18 Range/Units 11:51 14:50 17:58 WBC (3.8-10.6) k/uL RBC (3.80-5.40) m/uL Hgb (11.4-16.0) gm/dL Hct (34.0-46.0) % MCHC (31.0-37.0) g/dL RDW (11.5-15.5) % Neutrophils # (Manual) (1.3-7.7) k/uL Monocytes # (Manual) (0-1.0) k/uL Eosinophils # (Manual) (0-0.7) k/uL Nucleated RBCs (0-0) /100 WBC APTT 41.2 H (22.0-30.0) sec ABG pH (7.35-7.45) ABG pCO2 (35-45) mmHg ABG pO2 (83-108) mmHg ABG HCO3 (21-25) mmol/L ABG Total CO2 (19-24) mmol/L ABG O2 Saturation (94-97) % Sodium (137-145) mmol/L Chloride (98-107) mmol/L Carbon Dioxide (22-30) mmol/L BUN (7-17) mg/dL Creatinine (0.52-1.04) mg/dL Glucose (74-99) mg/dL POC Glucose (mg/dL) 196 H 177 H (75-99) mg/dL Calcium (8.4-10.2) mg/dL AST (14-36) U/L Total Protein (6.3-8.2) g/dL Albumin (3.5-5.0) g/dL 08/29/18 08/29/18 08/30/18 Range/Units 20:16 22:34 00:04 WBC (3.8-10.6) k/uL RBC (3.80-5.40) m/uL Hgb (11.4-16.0) gm/dL Hct (34.0-46.0) % MCHC (31.0-37.0) g/dL RDW (11.5-15.5) % Neutrophils # (Manual) (1.3-7.7) k/uL Monocytes # (Manual) (0-1.0) k/uL Eosinophils # (Manual) (0-0.7) k/uL Nucleated RBCs (0-0) /100 WBC APTT 80.4 H (22.0-30.0) sec ABG pH (7.35-7.45) ABG pCO2 (35-45) mmHg ABG pO2 (83-108) mmHg ABG HCO3 (21-25) mmol/L ABG Total CO2 (19-24) mmol/L ABG O2 Saturation (94-97) % Sodium (137-145) mmol/L Chloride (98-107) mmol/L Carbon Dioxide (22-30) mmol/L BUN (7-17) mg/dL Creatinine (0.52-1.04) mg/dL Glucose (74-99) mg/dL POC Glucose (mg/dL) 163 H 167 H (75-99) mg/dL Calcium (8.4-10.2) mg/dL AST (14-36) U/L Total Protein (6.3-8.2) g/dL Albumin (3.5-5.0) g/dL 08/30/18 08/30/18 08/30/18 Range/Units 04:24 04:24 04:24 WBC 18.2 H (3.8-10.6) k/uL RBC 2.79 L (3.80-5.40) m/uL Hgb 7.1 L (11.4-16.0) gm/dL Hct 23.2 L (34.0-46.0) % MCHC 30.7 L (31.0-37.0) g/dL RDW 18.1 H (11.5-15.5) % Neutrophils # (Manual) 15.40 H (1.3-7.7) k/uL Monocytes # (Manual) 1.09 H (0-1.0) k/uL Eosinophils # (Manual) 0.73 H (0-0.7) k/uL Nucleated RBCs 1 H (0-0) /100 WBC APTT 52.1 H (22.0-30.0) sec ABG pH (7.35-7.45) ABG pCO2 (35-45) mmHg ABG pO2 (83-108) mmHg ABG HCO3 (21-25) mmol/L ABG Total CO2 (19-24) mmol/L ABG O2 Saturation (94-97) % Sodium 132 L (137-145) mmol/L Chloride 90 L (98-107) mmol/L Carbon Dioxide 36 H (22-30) mmol/L BUN 36 H (7-17) mg/dL Creatinine 1.67 H (0.52-1.04) mg/dL Glucose 165 H (74-99) mg/dL POC Glucose (mg/dL) (75-99) mg/dL Calcium 8.3 L (8.4-10.2) mg/dL AST 83 H (14-36) U/L Total Protein 5.6 L (6.3-8.2) g/dL Albumin 2.6 L (3.5-5.0) g/dL 08/30/18 08/30/18 Range/Units 05:00 05:42 WBC (3.8-10.6) k/uL RBC (3.80-5.40) m/uL Hgb (11.4-16.0) gm/dL Hct (34.0-46.0) % MCHC (31.0-37.0) g/dL RDW (11.5-15.5) % Neutrophils # (Manual) (1.3-7.7) k/uL Monocytes # (Manual) (0-1.0) k/uL Eosinophils # (Manual) (0-0.7) k/uL Nucleated RBCs (0-0) /100 WBC APTT (22.0-30.0) sec ABG pH 7.53 H (7.35-7.45) ABG pCO2 46 H (35-45) mmHg ABG pO2 82 L (83-108) mmHg ABG HCO3 38 H (21-25) mmol/L ABG Total CO2 40 H (19-24) mmol/L ABG O2 Saturation 98.1 H (94-97) % Sodium (137-145) mmol/L Chloride (98-107) mmol/L Carbon Dioxide (22-30) mmol/L BUN (7-17) mg/dL Creatinine (0.52-1.04) mg/dL Glucose (74-99) mg/dL POC Glucose (mg/dL) 167 H (75-99) mg/dL Calcium (8.4-10.2) mg/dL AST (14-36) U/L Total Protein (6.3-8.2) g/dL Albumin (3.5-5.0) g/dL Assessment and Plan Assessment: Assessment #1 congestive heart failure exacerbation secondary to diastolic dysfunction, acute on chronic #2 acute exacerbation of COPD #3 severe pulmonary hypertension #4 paroxysmal atrial fibrillation #5 coronary artery disease and status post CABG #6 chest discomfort #7 multiple comorbid conditions Plan Continue amiodarone IV and heparin IV Continue the current dose of metoprolol 12.5 mg by mouth twice a day Continue Lasix IV Follow-up with the patient
--- NOTE | 2018-08-30 08:15 | XR ---
EXAMINATION TYPE: XR chest 1V portable DATE OF EXAM: 08/30/2018 COMPARISON: Chest x-ray 08/29/2018 HISTORY: Intubated TECHNIQUE: Single frontal view of the chest is obtained. FINDINGS: Endotracheal tube, NG tube, left jugular central venous catheter are overlying appropriate positions. Patient is post median sternotomy and the heart remains enlarged. Bibasilar increased den sity persists. No evident pneumothorax. There are overlying cardiac leads. IMPRESSION: Correlate for congestive heart failure with basilar effusions. Pneumonia not excluded. A dditional follow-up recommended.
[2018-08-30] MEDS: cloNIDine 0.1 MG/24HR PATCH TRANSDERM SCH (08:56)
[2018-08-30] MEDS: ALLOPURINOL 100 MG TAB PO SCH (08:57)
[2018-08-30] MEDS: CYANOCOBALAMIN-FA-PYRIDOXINE 1 EACH TAB PO SCH (08:57)
[2018-08-30] MEDS: PARoxetine 10 MG TAB PO SCH (08:57)
[2018-08-30] MEDS: CHLORHEXIDINE GLUCONATE 15 ML CUP MUCOUS MEM SCH ×2 (08:57→21:17)
[2018-08-30] MEDS: METOPROLOL TARTRATE 12.5 MG TAB PO SCH ×2 (08:57→20:23)
[2018-08-30] MEDS: CLOPIDOGREL 75 MG TAB PO SCH (08:57)
[2018-08-30] MEDS: ISOSORBIDE MONONITRATE ER 30 MG TAB.ER.24H PO SCH (09:13)
[2018-08-30 11:53] LABS: Glucose,Whole Blood 190 mg/dL (75-99)
[2018-08-30 13:30] LABS: ABG Base Excess 15.3 mmol/L; ABG HCO3 38 mmol/L (21-25); ABG Oxygen Saturation 94.5 % (94-97); ABG PCO2 47 mmHg (35-45); ABG PH 7.52 (7.35-7.45); ABG PO2 67 mmHg (83-108); ABG TCO2 40 mmol/L (19-24)
[2018-08-30] MEDS: CLEVIDIPINE BUTYRATE 25 MG in EMPTY BAG 1 BAG IV SCH ×2 (13:41→20:17)
[2018-08-30] MEDS ORDERED: ACETAMINOPHEN IV (For NPO) 1,000 MG in EMPTY BAG 1 BAG IVPB ONE (16:23)
[2018-08-30] MEDS: ATORVASTATIN 40 MG TAB PO SCH (20:23)
[2018-08-30] MEDS: INSULIN DETEMIR 100 UNIT/ML 10 ML VIAL SQ SCH (21:32)
--- NOTE | 2018-08-30 23:23 | P.PN ---
Subjective This is a pleasant 73 years old with previous history of stroke and multi- infarct dementia. Who presents because of dyspnea found to have acute pulmonary edema mostly secondary to atrial fibrillation's with rapid ventricular rate with some elements of LV dysfunction. Patient was admitted and seen by me in the ICU today. His been evaluated by cardiology as well and started on IV diuretics as well as amiodarone. His heart rate is currently better controlled at 71. And blood pressure 155/60. 08/25/2018 Today patient remains in the ICU. She is fully awake. She still have some dyspnea . Patient developed chest pain last night before going to sleep it was about 60/10 in severity, however now is resolved. Audio Visual Equipment Rental Clerk evaluated the patient this morning pending, and he recommended metoprolol 25 mg twice a day, patient has high blood pressure 119/67, rest of vitals were stable. WBC 16.4 K. Hemoglobin 7.2. plt 333. Sodium 134, creatinine 1.5, which is close to her baseline of 1.3-1.7. Patient is with history of atrial fibrillation, No anticoagulation in the view of low hemoglobin at 7.2, as per cardiology team recommendation Patient to clarify to me she was not on oxygen at home 08/26/2018 Patient was intubated today after developing respiratory distress secondary to pulmonary edema from a ventricular rate in the view of low ejection fraction of 30-35%.information to continue to try this as patient is sedated and intubated.chest chest x-ray: CHF. Patient was started on Lasix dripas well as amiodarone and metoprolol however at the lower dose as per solutions sales consultant. 08/27/2018 pt remains intubated and sedated . she has mildly impaired cardiac function with reduced EF to 45-50% , associated with atrial fibrillation and rapid ventricular rate, pt presents with pulmonary edema that needed incubation, , however in CXR she has basilar atelectasis but pneumonia could not be excluded with vascular congestion on admission, pt in on lasix drip. she has moderate MR , moderate TR, and severe pulmonary hypertension. she is on heparin drip too. 08/28/2018 pt still intubated , pt is still on lasix drip she is making good urine outpt. heparin drip was stopped as her Hb dropped today to 7.3.e has mildly impaired cardiac function with reduced EF to 45-50% , associated with atrial fibrillation and rapid ventricular rate, pt presents with pulmonary edema that needed incubation, she has moderate MR, moderate TR, and severe pulmonary hypertension. 08/29/2018 pt still intubated , pt is still on lasix drip she is making good urine outpt. heparin drip was stopped as her Hb dropped today to 7.3 and 7.1. has mildly impaired cardiac function with reduced EF to 45-50% , associated with atrial fibrillation and rapid ventricular rate, pt presents with pulmonary edema that needed incubation, she has moderate MR, moderate TR, and severe pulmonary hypertension. placed on amiodarone drip today 08/30/18 pt still intubated , pt is still on lasix drip she is making good urine outpt. heparin drip was stopped as her Hb dropped today to 7.3 and 7.1. has mildly impaired cardiac function with reduced EF to 45-50% , associated with atrial fibrillation and rapid ventricular rate, pt presents with pulmonary edema that needed incubation, she has moderate MR, moderate TR, and severe pulmonary hypertension. placed on amiodarone drip today . wbc 18.2 today , her cr is at 1.6 REVIEW OF SYSTEMS: patient cannot provide information because she is intubated and sedated medication reviewed: tylenol 100 mg, allopurinol 100 mg, Lipitor 40 mg, klonopin 0.5 mg, Plavix 75 mg, vasotec 1.25 mg, folic a 1 mg, Lasix 60 mg, heparin 32911 U, novolog sliding scale, levemir 30 U, imdur 30 mg, melatonin 3 mg, Zofran 4 mg, protonix 40 mg, senokot-s 1 tab, and triamcinolone topical. Metoprolol 12.5 mg. Amiodarone 200 mg. Paxil 10 mg. Calcitriol 0.25 g.clonidine patch 0.1 mg Objective - Vital Signs Vital signs: Vital Signs Temp 97.8 F 08/30/18 16:00 Pulse 90 08/30/18 19:00 Resp 17 08/30/18 19:00 BP 183/68 08/30/18 19:00 Pulse Ox 95 08/30/18 19:00 Intake & Output 08/30/18 08/30/18 08/31/18 06:59 18:59 06:59 Intake Total 1545.333 704.010 Output Total 1610 1850 Balance -64.667 -1145.990 Weight 91.4 kg 91.4 kg Intake: IV 312 338 .9 pressure bags 72 78 Sodium Chloride 0.9% 1, 240 260 000 ml @ 20 mls/hr IV . Q24H [facility] Rx#:[id number] Intake, IV Titration 807.333 219.010 Amount ACETAMINOPHEN IV (For NPO 100 ) 1,000 mg In Empty Bag 1 bag @ 400 mls/hr IVPB ONCE ONE Rx#:[id number] Amiodarone 450 mg In 235.887 Dextrose 5% in Water 250 ml @ 1 MG/MIN 34.53 mls/ hr IV .Q7H31M [facility] Rx#: [id number] Clevidipine Butyrate 25 44.567 32.767 mg In Empty Bag 1 bag @ 1 MG/HR 2 mls/hr IV .Q24H [facility] Rx#:[id number] Furosemide 250 mg In 250 Sodium Chloride 0.9% 225 ml @ 10 MG/HR 10 mls/hr IVP .Q24H [facility] Rx#: [id number] Heparin Sod,Pork in 0.45% 3.297 NaCl 25,000 unit In 0.45 % NaCl 1 500ml.bag @ 20 mls/hr IV .Q24H [facility] Rx#: [id number] Propofol 1,000 mg In 273.582 86.243 Empty Bag 1 bag @ Titrate IV .Q0M [facility] Rx#: [id number] Oral 21 Tube Feeding 315 147 Other 90 Output: Urine 1610 1850 Other: Voiding Method Indwelling Catheter Indwelling Catheter # Voids 1 ABP, PAP, CO, CI - Last Documented Arterial Blood Pressure 133/43 - Exam GENERAL: The patient is alert and oriented x3, not in any acute distress. Well developed, well nourished. HEENT: Pupils are round and equally reacting to light. EOMI. No scleral icterus. No conjunctival pallor. Normocephalic, atraumatic. No pharyngeal erythema. No thyromegaly. CARDIOVASCULAR: S1 and S2 present. No murmurs, rubs, or gallops. PULMONARY: Chest is clear to auscultation, no wheezing or crackles. ABDOMEN: Soft, nontender, nondistended, normoactive bowel sounds. No palpable organomegaly. MUSCULOSKELETAL: No joint swelling or deformity. EXTREMITIES: No cyanosis, clubbing, or pedal edema. NEUROLOGICAL: Gross neurological examination did not reveal any focal deficits. SKIN: No rashes. - Labs CBC & Chem 7: 08/30/18 04:24 08/30/18 14:30 Labs: Abnormal Lab Results - Last 24 Hours (Table) 08/29/18 08/29/18 08/30/18 Range/Units 20:16 22:34 00:04 WBC (3.8-10.6) k/uL RBC (3.80-5.40) m/uL Hgb (11.4-16.0) gm/dL Hct (34.0-46.0) % MCHC (31.0-37.0) g/dL RDW (11.5-15.5) % Neutrophils # (Manual) (1.3-7.7) k/uL Monocytes # (Manual) (0-1.0) k/uL Eosinophils # (Manual) (0-0.7) k/uL Nucleated RBCs (0-0) /100 WBC APTT 80.4 H (22.0-30.0) sec ABG pH (7.35-7.45) ABG pCO2 (35-45) mmHg ABG pO2 (83-108) mmHg ABG HCO3 (21-25) mmol/L ABG Total CO2 (19-24) mmol/L ABG O2 Saturation (94-97) % Sodium (137-145) mmol/L Chloride (98-107) mmol/L Carbon Dioxide (22-30) mmol/L BUN (7-17) mg/dL Creatinine (0.52-1.04) mg/dL Glucose (74-99) mg/dL POC Glucose (mg/dL) 163 H 167 H (75-99) mg/dL Calcium (8.4-10.2) mg/dL AST (14-36) U/L Total Protein (6.3-8.2) g/dL Albumin (3.5-5.0) g/dL 08/30/18 08/30/18 08/30/18 Range/Units 04:24 04:24 04:24 WBC 18.2 H (3.8-10.6) k/uL RBC 2.79 L (3.80-5.40) m/uL Hgb 7.1 L (11.4-16.0) gm/dL Hct 23.2 L (34.0-46.0) % MCHC 30.7 L (31.0-37.0) g/dL RDW 18.1 H (11.5-15.5) % Neutrophils # (Manual) 15.40 H (1.3-7.7) k/uL Monocytes # (Manual) 1.09 H (0-1.0) k/uL Eosinophils # (Manual) 0.73 H (0-0.7) k/uL Nucleated RBCs 1 H (0-0) /100 WBC APTT 52.1 H (22.0-30.0) sec ABG pH (7.35-7.45) ABG pCO2 (35-45) mmHg ABG pO2 (83-108) mmHg ABG HCO3 (21-25) mmol/L ABG Total CO2 (19-24) mmol/L ABG O2 Saturation (94-97) % Sodium 132 L (137-145) mmol/L Chloride 90 L (98-107) mmol/L Carbon Dioxide 36 H (22-30) mmol/L BUN 36 H (7-17) mg/dL Creatinine 1.67 H (0.52-1.04) mg/dL Glucose 165 H (74-99) mg/dL POC Glucose (mg/dL) (75-99) mg/dL Calcium 8.3 L (8.4-10.2) mg/dL AST 83 H (14-36) U/L Total Protein 5.6 L (6.3-8.2) g/dL Albumin 2.6 L (3.5-5.0) g/dL 08/30/18 08/30/18 08/30/18 Range/Units 05:00 05:42 11:49 WBC (3.8-10.6) k/uL RBC (3.80-5.40) m/uL Hgb (11.4-16.0) gm/dL Hct (34.0-46.0) % MCHC (31.0-37.0) g/dL RDW (11.5-15.5) % Neutrophils # (Manual) (1.3-7.7) k/uL Monocytes # (Manual) (0-1.0) k/uL Eosinophils # (Manual) (0-0.7) k/uL Nucleated RBCs (0-0) /100 WBC APTT (22.0-30.0) sec ABG pH 7.53 H (7.35-7.45) ABG pCO2 46 H (35-45) mmHg ABG pO2 82 L (83-108) mmHg ABG HCO3 38 H (21-25) mmol/L ABG Total CO2 40 H (19-24) mmol/L ABG O2 Saturation 98.1 H (94-97) % Sodium (137-145) mmol/L Chloride (98-107) mmol/L Carbon Dioxide (22-30) mmol/L BUN (7-17) mg/dL Creatinine (0.52-1.04) mg/dL Glucose (74-99) mg/dL POC Glucose (mg/dL) 167 H 190 H (75-99) mg/dL Calcium (8.4-10.2) mg/dL AST (14-36) U/L Total Protein (6.3-8.2) g/dL Albumin (3.5-5.0) g/dL 08/30/18 Range/Units 13:24 WBC (3.8-10.6) k/uL RBC (3.80-5.40) m/uL Hgb (11.4-16.0) gm/dL Hct (34.0-46.0) % MCHC (31.0-37.0) g/dL RDW (11.5-15.5) % Neutrophils # (Manual) (1.3-7.7) k/uL Monocytes # (Manual) (0-1.0) k/uL Eosinophils # (Manual) (0-0.7) k/uL Nucleated RBCs (0-0) /100 WBC APTT (22.0-30.0) sec ABG pH 7.52 H (7.35-7.45) ABG pCO2 47 H (35-45) mmHg ABG pO2 67 L (83-108) mmHg ABG HCO3 38 H (21-25) mmol/L ABG Total CO2 40 H (19-24) mmol/L ABG O2 Saturation (94-97) % Sodium (137-145) mmol/L Chloride (98-107) mmol/L Carbon Dioxide (22-30) mmol/L BUN (7-17) mg/dL Creatinine (0.52-1.04) mg/dL Glucose (74-99) mg/dL POC Glucose (mg/dL) (75-99) mg/dL Calcium (8.4-10.2) mg/dL AST (14-36) U/L Total Protein (6.3-8.2) g/dL Albumin (3.5-5.0) g/dL Assessment and Plan Assessment: Acute hypoxic respiratory failure, secondary to acute pulmonary edema. Present on admission status post intubation atrial fibrillation's with rapid ventricular rate Acute on chronic diastolic congestive heart failure Ischemic stroke in the left middle cerebral artery with residual right sided hemiplegia and dysarthria. Recent aspiration pneumonia of the right lower lobe, on Augmentin Recent right ankle fractures with medial my last and fibular fracture secondary to fall, been managed with a brace; nonsurgical management Vascular dementia 2 diabetes mellitus and GERD Hyperlipidemia Gestational hypertension Degenerative joint disease Chronic kidney disease stage III Chronic low back pain Chronic urine incontinence Generalized anxiety disorder Moderate mitral and tricuspid regurgitation, nontraumatic secondary pulmonary hypertension Plan: We recommend to continue with the same treatment. Continue with symptomatic treatment. Follow-up cardiology recommendations and their input is appreciated. Pulmonary/critical care R following the case. continue with their recommendation while in the ICU and patient is intubated. Patient was started on heparin drip and Lasix triple GI and DVT prophylaxis. Further recommendations the clinical course of the patient .Prognosis is guarded
[2018-08-31] MEDS: IPRATROPIUM-ALBUTEROL 3 ML NEB INHALATION SCH ×7 (00:07→23:24)
[2018-08-31] MEDS: INSULIN ASPART 100 UNIT/ML 1 ML 10 ML VIAL SQ SCH ×5 (00:50→20:55)
[2018-08-31 00:51] LABS: Glucose,Whole Blood 161 mg/dL (75-99)
[2018-08-31] MEDS: CLEVIDIPINE BUTYRATE 25 MG in EMPTY BAG 1 BAG IV SCH ×2 (02:06→05:47)
[2018-08-31] MEDS: FUROSEMIDE 250 MG in SODIUM CHLORIDE 0.9% 225 ML IVP SCH (02:08)
[2018-08-31 04:59] LABS: Anisocytosis Slight; Basophils # (A) 0.1 k/uL (0-0.2); Basophils % (A) 0 %; Eosinophils # (A) 0.1 k/uL (0-0.7); Eosinophils % (A) 0 %; HCT 24.4 % (34.0-46.0); HGB 7.5 gm/dL (11.4-16.0); Hypochromasia Marked; Lymphocytes % (A) 8 %; MCH 25.2 pg (25.0-35.0); MCHC 30.6 g/dL (31.0-37.0); MCV 82.5 fL (80.0-100.0); Mean Platelet Volume 6.9; Monocytes # (A) 2.8 k/uL (0-1.0); Monocytes % (A) 11 %; Neutrophils # (A) 20.1 k/uL (1.3-7.7); Neutrophils % (A) 77 %; Platelet Count 449 k/uL (150-450); Poikilocytosis Moderate; RBC 2.96 m/uL (3.80-5.40); RDW 17.8 % (11.5-15.5); WBC 26.2 k/uL (3.8-10.6)
[2018-08-31] MEDS ORDERED: DEXTROSE 5% IN WATER 100 ML with AMIODARONE 150 MG IV ONE (05:05)
[2018-08-31 05:33] LABS: Calcium 8.8 mg/dL (8.4-10.2); Magnesium 2.2 mg/dL (1.6-2.3); Phosphorus 5.2 mg/dL (2.5-4.5); Potassium 4.3 mmol/L (3.5-5.1)
[2018-08-31] MEDS ORDERED: POTASSIUM CHLORIDE 10 MEQ in WATER FOR INJECTION 1 100ML.BAG IVPB STA (06:17)
--- NOTE | 2018-08-31 06:27 | XR ---
EXAMINATION TYPE: XR chest 1V portable DATE OF EXAM: 08/31/2018 HISTORY: Tube placement. REFERENCE: Previous study dated 08/30/2018. FINDINGS: There has been a midline sternotomy. The patient has been extubated. The patient's NG tube is been removed. A left internal jugular catheter remains in place. Its tip is at the cavoatrial junc tion. The heart is enlarged. There is bibasilar infiltrates. There are bilateral effusions which are worsen ing. There is vascular congestion and subtle interstitial change. IMPRESSION: WORSENING CHANGES OF CONGESTIVE HEART FAILURE.
[2018-08-31 06:53] LABS: Glucose,Whole Blood 184 mg/dL (75-99)
--- NOTE | 2018-08-31 07:10 | P.PN ---
Subjective Progress Note Date: 08/31/18 Principal diagnosis: Acute hypoxic respiratory failure This is a pleasant 73-year-old female patient with known history of coronary artery disease and status post CABG, chronic obstructive pulmonary disease, chronic kidney disease, paroxysmal atrial fibrillation, and history of stroke, was admitted to the intensive care unit with congestive heart failure secondary to diastole dysfunction as well as COPD exacerbation. She underwent an echocardiogram and that revealed mildly impaired LV function with EF of 45%, moderate MR, moderate TR, and severe pulmonary hypertension. The cardiac enzymes are slightly elevated. I'll follow-up with the patient today, August [id number], the patient was extubated yesterday evening. She went into A. fib with RVR and she was given a bolus of IV amiodarone and she is converted back to normal sinus mechanism. Beside that she is in mild respiratory distress at this point. She is unable to take her pills because she is a swallow evaluation. I am going to add metoprolol IV to the current medical regimen trying to keep the patient in normal sinus mechanism. Continue amiodarone IV. Continue heparin IV. Continue the Lasix IV as well. The patient chest x-ray from today showed worsening finding of congestive heart failure. Objective - Vital Signs Vital signs: Vital Signs Temp 98.6 F 08/31/18 04:00 Pulse 98 08/31/18 07:00 Resp 17 08/31/18 07:00 BP 156/61 08/31/18 00:00 Pulse Ox 96 08/31/18 07:00 Intake & Output 08/30/18 08/31/18 08/31/18 18:59 06:59 18:59 Intake Total 704.010 842.367 Output Total 1850 698 Balance -1145.990 144.367 Weight 91.4 kg 91.4 kg Intake: IV 338 496 .9 pressure bags 78 66 Dextrose 5% in Water 100 100 ml @ 618 mls/hr IV .Q10M [facility] with Amiodarone 150 mg Rx#:[id number] Furosemide 250 mg In 110 Sodium Chloride 0.9% 225 ml @ 10 MG/HR 10 mls/hr IVP .Q24H [facility] Rx#: [id number] Sodium Chloride 0.9% 1, 260 220 000 ml @ 20 mls/hr IV . Q24H [facility] Rx#:[id number] Intake, IV Titration 219.010 346.367 Amount ACETAMINOPHEN IV (For NPO 100 ) 1,000 mg In Empty Bag 1 bag @ 400 mls/hr IVPB ONCE ONE Rx#:[id number] Clevidipine Butyrate 25 32.767 99.700 mg In Empty Bag 1 bag @ 1 MG/HR 2 mls/hr IV .Q24H [facility] Rx#:[id number] Furosemide 250 mg In 246.667 Sodium Chloride 0.9% 225 ml @ 10 MG/HR 10 mls/hr IVP .Q24H [facility] Rx#: [id number] Propofol 1,000 mg In 86.243 Empty Bag 1 bag @ Titrate IV .Q0M [facility] Rx#: [id number] Tube Feeding 147 Output: Urine 1850 698 Other: Voiding Method Indwelling Catheter Indwelling Catheter # Voids 1 ABP, PAP, CO, CI - Last Documented Arterial Blood Pressure 127/44 - Constitutional General appearance: Present: mild distress - Respiratory Respiratory: bilateral: rales - Cardiovascular Rhythm: regular Heart sounds: normal: S1, S2 - Labs CBC & Chem 7: 08/31/18 04:38 08/31/18 04:38 Labs: Abnormal Lab Results - Last 24 Hours (Table) 08/30/18 08/30/18 08/31/18 Range/Units 11:49 13:24 00:36 WBC (3.8-10.6) k/uL RBC (3.80-5.40) m/uL Hgb (11.4-16.0) gm/dL Hct (34.0-46.0) % MCHC (31.0-37.0) g/dL RDW (11.5-15.5) % Neutrophils # (1.3-7.7) k/uL Monocytes # (0-1.0) k/uL ABG pH 7.52 H (7.35-7.45) ABG pCO2 47 H (35-45) mmHg ABG pO2 67 L (83-108) mmHg ABG HCO3 38 H (21-25) mmol/L ABG Total CO2 40 H (19-24) mmol/L Sodium (137-145) mmol/L Chloride (98-107) mmol/L Carbon Dioxide (22-30) mmol/L BUN (7-17) mg/dL Creatinine (0.52-1.04) mg/dL Glucose (74-99) mg/dL POC Glucose (mg/dL) 190 H 161 H (75-99) mg/dL Phosphorus (2.5-4.5) mg/dL 08/31/18 08/31/18 08/31/18 Range/Units 04:38 04:38 06:39 WBC 26.2 H (3.8-10.6) k/uL RBC 2.96 L (3.80-5.40) m/uL Hgb 7.5 L (11.4-16.0) gm/dL Hct 24.4 L (34.0-46.0) % MCHC 30.6 L (31.0-37.0) g/dL RDW 17.8 H (11.5-15.5) % Neutrophils # 20.1 H (1.3-7.7) k/uL Monocytes # 2.8 H (0-1.0) k/uL ABG pH (7.35-7.45) ABG pCO2 (35-45) mmHg ABG pO2 (83-108) mmHg ABG HCO3 (21-25) mmol/L ABG Total CO2 (19-24) mmol/L Sodium 132 L (137-145) mmol/L Chloride 88 L (98-107) mmol/L Carbon Dioxide 35 H (22-30) mmol/L BUN 38 H (7-17) mg/dL Creatinine 1.73 H (0.52-1.04) mg/dL Glucose 146 H (74-99) mg/dL POC Glucose (mg/dL) 184 H (75-99) mg/dL Phosphorus 5.2 H (2.5-4.5) mg/dL Assessment and Plan Assessment: Assessment #1 congestive heart failure exacerbation secondary to diastolic dysfunction, acute on chronic #2 acute exacerbation of COPD #3 severe pulmonary hypertension #4 paroxysmal atrial fibrillation #5 coronary artery disease and status post CABG #6 chest discomfort #7 multiple comorbid conditions Plan Continue amiodarone IV and heparin IV Start the patient on metoprolol IV at 2.5 mg every 6 hours. Continue Lasix IV Continue heparin IV Follow-up with the patient
[2018-08-31] MEDS: METOPROLOL TARTRATE 5 MG/5 ML VIAL IVP SCH ×2 (07:39→12:18)
--- NOTE | 2018-08-31 10:33 | P.PN ---
Subjective Progress Note Date: 08/31/18 Principal diagnosis: Respiratory failure Progress note dated 08/26/2018 This is a 73-year-old female with a history of hypoxemic respiratory failure secondary to pulmonary edema complicated by atrial fibrillation/RVR. Her ejection fraction is diminished at 30-35%. She also has severe pulmonary hypertension by echocardiogram. 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 Apparently last night or so, she developed worsening respiratory failure. Her blood pressure was elevated and she had atrial fibrillation with RVR. 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 Currently, she is on the assist control mode rate of 20, tidal volume is 400 FiO2 100% PEEP of 5. Blood gases on those settings include a PaO2 of 100 PaCO2 of 55 and a pH 7.37. We will decrease the tidal volume to 350 and increase the rate to 26. Currently she is on propofol at 35 mics per kilogram per minute, a saline IV at 20 mL an hour heparin via weightbase protocol and Lasix drip at 10 mg an hour. Chest x-ray is consistent with heart failure. The patient will need tube feeds. Vent changes will be made by respiratory. The patient will also need an art line and central line. I did speak to the family in detail. Progress note dated 08/27/2018 73-year-old female with a history of hypoxemic respiratory failure secondary to flash pulmonary edema which was also complicated by atrial fibrillation with rapid ventricular response. Her ejection fraction is diminished at 30-35%. In addition by echocardiogram, she has severe pulmonary hypertension. 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 The patient remains on the volume assist control mode with a rate of 20, tidal volume 350, FiO2 50% and PEEP of 5. Arterial blood gases show a PaO2 of 129 a PaCO2 44 and a pH of 7.50. This is consistent with metabolic alkalosis in part related to volume contraction but also hypokalemia. I did ask the nurse to correct the potassium which was 3.3. The Lasix drip is at 10 mg an hour propofol is a 35 mics per kilogram per minute and heparin is at weightbase protocol. She get a saline IV KVO. Chest x-rays consistent with fluid overload /CHF. Progress note dated 08/28/2018 73-year-old female with a history of hypoxemic respiratory failure, secondary to flash pulmonary edema complicated by atrial fibrillation/RVR. Her ejection fraction is reduced at 30-35%. By echocardiogram, the patient has severe pulmonary hypertension. 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 The patient remains on the volume assist control mode with a rate of 26, tidal volume 350, FiO2 40% and PEEP of 5. Arterial blood gases show a PaO2 of 79 a PaCO2 of 48 and a pH is 7.47. These arterial blood gases are consistent with a relative hypoxemia and a metabolic alkalosis. The chest x-rays consistent with fluid overload. Microbiologic studies are negative. She remains on vital AF with a rate of 33 and a goal of 33 mL an hour, saline IV at KVO, propofol at 40 mics per kilogram per minute, Cleveprex at 2 mg an hour, and Lasix drip at 10 mg an hour. Her lab data includes a white count of 20.1, hemoglobin 7.3, hematocrit 25.1, and a platelet count of 461,000. In addition, sodium 135, potassium 3.8, chloride 93, CO2 33, the BUN of 36 and a creatinine of 1.69. The patient will have a daily interruption of sedation today to evaluate her as to whether or not she might be a candidate for a spontaneous breathing trial. Progress note dated 08/30/2018 This is a 73-year-old female with history of hypoxemic respiratory failure requiring intubation and mechanical ventilation secondary to flash pulmonary edema. Her respiratory failure was complicated by atrial fibrillation and RVR. In addition, she has an ejection fraction of about 30%. 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 Currently, the patient's on the volume assist control mode with a rate of 26, tidal volume 350, FiO2 40%, and PEEP of 5. Arterial blood gases show a PaO2 of 82 PaCO2 46 and pH of 7.53. Her IVs include a saline IV at 20 mL an hour, Lasix drip at 10 mg an hour, propofol at 40 mics per kilogram per minute, Cleveprex 1 mg per hour, amiodarone at 0.5 mg/m and heparin via weightbase protocol. Chest x-ray shows only minimal improvement of the lung cohen secondary to fluid overload/pulmonary edema. Yesterday, we did do a daily interruption of sedation but we did not do a spontaneous breathing trial given her poor oxygenation. Microbiologic studies continue to be negative. Chest x-ray continues to show fluid overload with bilateral effusions. Progress note dated 08/31/2018 73-year-old female with a history of hypoxemic respiratory failure requiring intubation and mechanical ventilation secondary to flash pulmonary edema. Yesterday, she was extubated. In addition, she has a history of atrial fibrillation with RVR, a reduced ejection fraction of about 30% and a history of severe pulmonary hypertension, aspiration pneumonia, CVA, COPD, diabetes, multi-infarct dementia, essential hypertension, stage III chronic kidney disease , anxiety, GERD, hyperlipidemia and recent right ankle fracture. Currently, she is on BiPAP at 10 and 5 and 40%. The patient can be switched over to nasal cannula. I told the nurses and respiratory therapist to start at 4-5 L/m. In addition, she is on heparin via weightbase protocol, a saline IV at 20 mL an hour Cleveprex at 3 mg an hour amiodarone a 5 mg/m and Lasix drip at 10 mg an hour. I will start her back on her oral antihypertensive, which was clonidine, 0.1 mg 3 times a day. I did have a conversation with the patient's daughter today. She does understand that mom is still not out of the tellez. Her chest x -ray didn't show some bilateral pleural effusions and some mild fluid overload. Objective - Vital Signs Vital signs: Vital Signs Temp 98.6 F 08/31/18 04:00 Pulse 82 08/31/18 07:53 Resp 17 08/31/18 07:00 BP 156/61 08/31/18 00:00 Pulse Ox 96 08/31/18 07:00 Intake & Output 08/30/18 08/31/18 08/31/18 18:59 06:59 18:59 Intake Total 704.010 842.367 36 Output Total 1850 698 125 Balance -1145.990 144.367 -89 Weight 91.4 kg 91.4 kg Intake: IV 338 496 36 .9 pressure bags 78 66 6 Dextrose 5% in Water 100 100 ml @ 618 mls/hr IV .Q10M ONE with Amiodarone 150 mg Rx#:[id number] Furosemide 250 mg In 110 10 Sodium Chloride 0.9% 225 ml @ 10 MG/HR 10 mls/hr IVP .Q24H CLAUDE Rx#: [id number] Sodium Chloride 0.9% 1, 260 220 20 000 ml @ 20 mls/hr IV . Q24H CLAUDE Rx#:[id number] Intake, IV Titration 219.010 346.367 Amount ACETAMINOPHEN IV (For NPO 100 ) 1,000 mg In Empty Bag 1 bag @ 400 mls/hr IVPB ONCE ONE Rx#:[id number] Clevidipine Butyrate 25 32.767 99.700 mg In Empty Bag 1 bag @ 1 MG/HR 2 mls/hr IV .Q24H CLAUDE Rx#:[id number] Furosemide 250 mg In 246.667 Sodium Chloride 0.9% 225 ml @ 10 MG/HR 10 mls/hr IVP .Q24H CLAUDE Rx#: [id number] Propofol 1,000 mg In 86.243 Empty Bag 1 bag @ Titrate IV .Q0M CLAUDE Rx#: [id number] Tube Feeding 147 Output: Urine 1850 698 125 Other: Voiding Method Indwelling Catheter Indwelling Catheter # Voids 1 ABP, PAP, CO, CI - Last Documented Arterial Blood Pressure 127/44 - Exam No acute distress, awake and alert, with BiPAP mask in place. HEENT examination is grossly unremarkable. Mucous membranes are moist. Neck supple. Full range of motion. No adenopathy thyromegaly or neck vein distention. Cardiovascular examination reveals regular rhythm rate. S1-S2 normal. No S3 or S4. No discernible murmur noted. Heart sounds are distant. Heart rate is 83 bpm Lungs reveal coarse bilateral rhonchi and crackles. Breath sounds are diminished. No wheezes. Breath sounds are equal bilaterally. Breath sounds appear to be about the same as they have been for the last couple of days. Abdomen soft and bowel sounds are heard. No masses or tenderness. Extremities are intact. No cyanosis clubbing or edema. Skin is without rash or lesion. Neurologic examination cannot be assessed as the patient is currently sedated. - Labs CBC & Chem 7: 08/31/18 04:38 08/31/18 04:38 Labs: Abnormal Lab Results - Last 24 Hours (Table) 08/30/18 08/30/18 08/31/18 Range/Units 11:49 13:24 00:36 WBC (3.8-10.6) k/uL RBC (3.80-5.40) m/uL Hgb (11.4-16.0) gm/dL Hct (34.0-46.0) % MCHC (31.0-37.0) g/dL RDW (11.5-15.5) % Neutrophils # (1.3-7.7) k/uL Monocytes # (0-1.0) k/uL APTT (22.0-30.0) sec ABG pH 7.52 H (7.35-7.45) ABG pCO2 47 H (35-45) mmHg ABG pO2 67 L (83-108) mmHg ABG HCO3 38 H (21-25) mmol/L ABG Total CO2 40 H (19-24) mmol/L Sodium (137-145) mmol/L Chloride (98-107) mmol/L Carbon Dioxide (22-30) mmol/L BUN (7-17) mg/dL Creatinine (0.52-1.04) mg/dL Glucose (74-99) mg/dL POC Glucose (mg/dL) 190 H 161 H (75-99) mg/dL Phosphorus (2.5-4.5) mg/dL 08/31/18 08/31/18 08/31/18 Range/Units 04:38 04:38 06:39 WBC 26.2 H (3.8-10.6) k/uL RBC 2.96 L (3.80-5.40) m/uL Hgb 7.5 L (11.4-16.0) gm/dL Hct 24.4 L (34.0-46.0) % MCHC 30.6 L (31.0-37.0) g/dL RDW 17.8 H (11.5-15.5) % Neutrophils # 20.1 H (1.3-7.7) k/uL Monocytes # 2.8 H (0-1.0) k/uL APTT (22.0-30.0) sec ABG pH (7.35-7.45) ABG pCO2 (35-45) mmHg ABG pO2 (83-108) mmHg ABG HCO3 (21-25) mmol/L ABG Total CO2 (19-24) mmol/L Sodium 132 L (137-145) mmol/L Chloride 88 L (98-107) mmol/L Carbon Dioxide 35 H (22-30) mmol/L BUN 38 H (7-17) mg/dL Creatinine 1.73 H (0.52-1.04) mg/dL Glucose 146 H (74-99) mg/dL POC Glucose (mg/dL) 184 H (75-99) mg/dL Phosphorus 5.2 H (2.5-4.5) mg/dL 08/31/18 Range/Units 08:10 WBC (3.8-10.6) k/uL RBC (3.80-5.40) m/uL Hgb (11.4-16.0) gm/dL Hct (34.0-46.0) % MCHC (31.0-37.0) g/dL RDW (11.5-15.5) % Neutrophils # (1.3-7.7) k/uL Monocytes # (0-1.0) k/uL APTT 43.9 H (22.0-30.0) sec ABG pH (7.35-7.45) ABG pCO2 (35-45) mmHg ABG pO2 (83-108) mmHg ABG HCO3 (21-25) mmol/L ABG Total CO2 (19-24) mmol/L Sodium (137-145) mmol/L Chloride (98-107) mmol/L Carbon Dioxide (22-30) mmol/L BUN (7-17) mg/dL Creatinine (0.52-1.04) mg/dL Glucose (74-99) mg/dL POC Glucose (mg/dL) (75-99) mg/dL Phosphorus (2.5-4.5) mg/dL Assessment and Plan Assessment: Assessment Acute hypoxemic respiratory failure, secondary to CHF/pulmonary edema and complicated by atrial fibrillation/RVR in a patient with an echocardiogram showing ejection fraction of 30-35%, requiring intubation and mechanical ventilation on August 26. Status post extubation from mechanical ventilation on August 30 Severe pulmonary hypertension by echocardiogram. 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 Everything else the same. Arterial line and central line will be placed. Patient is currently on propofol at 35 mics per kilogram per minute heparin via weightbase protocol and Lasix drip 10 mg an hour. We'll make sure that with tube feedings are started. Chest x-rays consistent with heart failure/fluid overload. I did speak to the family. Prognosis is guarded given her age. Additional recommendations and suggestions are forthcoming. Microbiology is negative. White count is 20.1, he will may 0.2, hematocrit 27.4 , and platelet count 524,000. Sodium 133, potassium 3.9, chloride is 90, CO2 32 , BUN 33 and creatinine 1.63. Medications are reviewed. Critical care time 34 minutes. Plan dated 08/27/2018 The patient remains on the ventilator. We do drop the FiO2 from 50 to 40%. She remains on IV Lasix, propofol and IV heparin. She is being nourished with Vital AF at a rate of 33 with a goal of 33 mL an hour. I did tell the nurse to replace the past has seen him aggressively which is one of the reasons why she has a metabolic alkalosis. Her potassium this morning was only 3.3. Chest x- ray shows CHF. Microbiologic studies are negative thus far. Labs show a white count of 14.9, hemoglobin 7.4, hematocrit 24.8 and platelet count 385,000. PTT is 92.4. Sodium 131 potassium 3.3 chloride is 91 CO2 31, with a BUN of 36 and creatinine 1.63. Anion gap is normal. Her current medications are reviewed. They appear to be appropriate. We will continue to follow. Prognosis is guarded. Additional recommendations and suggestions are forthcoming. Critical care time 34 minutes Plan dated 08/28/2018 The patient will have a daily interruption of sedation. The patient's heparin had been discontinued. We'll give the patient some additional potassium to correct the metabolic alkalosis. Chest x-ray still shows evidence of fluid overload. Microbiologic studies are negative. Prognosis remains guarded. Labs have been reviewed. Medications have been reviewed. Additional recommendations and suggestions are forthcoming. Critical care time 35 minutes Plan dated 08/30/2018 The patient remains on a number of IV drips including Lasix, propofol, Cleveprex , amiodarone, and heparin. The labs today include a white count of 18.2 hemoglobin 7.1 hematocrit 23.2 and platelet count 360,000. PTT is 52.1. Arterial blood gases continued to show a metabolic alkalosis. Sodium is 132, potassium 4.2, chlorides 90 CO2 36 BUN 36 and creatinine 1.67. We will check on the patient's bicarbonate concentration on admission. This might be a post hypercapnic alkalosis and/or a metabolic alkalosis induced by hypokalemia and volume contraction given the fact she is on Lasix drip. Overall prognosis remains guarded. We will do a daily interruption of sedation and hopefully a spontaneous breathing trial today. Chest x-ray my opinion is a bit better today on Mrs. Jarvis. Critical care time 36 minutes Plan dated 08/31/2018 The patient was successfully extubated on August 30. She has been on BiPAP overnight. This morning, we will switch her to nasal cannula. We will get her back on her normal blood pressure medications. She still remains on IV heparin , Cleveprex, amiodarone, and Lasix drip. Chest x-ray still showing fluid overload. Microbiologic studies are negative. Lab data includes a white count of 26.2, hemoglobin 7.5, hematocrit 24.4 and platelet count 449,000. PTT is 43.9. Sodium 132, potassium 4.3, chlorides 88, CO2 35, BUN 38, and creatinine 1.73. Medications are reviewed. Additional recommendations and suggestions are forthcoming. I will switch her Lasix to 40 mg IV push every 8 hours. I will add clonidine 0.1 mg 3 times a day or clonidine TTS to eventually wean her off the Cleveprex. Prognosis is guarded. Critical care time 36 minutes Time with Patient: Greater than 30
[2018-08-31] MEDS: HEPARIN SODIUM,PORCINE 5,000 UNIT/ML 1 ML VIAL IV PRN (10:38)
[2018-08-31] MEDS: CLOPIDOGREL 75 MG TAB PO SCH (10:43)
[2018-08-31] MEDS: ISOSORBIDE MONONITRATE ER 30 MG TAB.ER.24H PO SCH (10:45)
[2018-08-31] MEDS: ONDANSETRON 4 MG TAB PO SCH ×3 (10:45→17:13)
[2018-08-31] MEDS: PANTOPRAZOLE 40 MG TABLET PO SCH ×2 (10:45→16:49)
[2018-08-31] MEDS: PARoxetine 10 MG TAB PO SCH (10:45)
[2018-08-31] MEDS: ALLOPURINOL 100 MG TAB PO SCH (10:45)
[2018-08-31] MEDS: CYANOCOBALAMIN-FA-PYRIDOXINE 1 EACH TAB PO SCH (10:46)
[2018-08-31] MEDS: CHLORHEXIDINE GLUCONATE 15 ML CUP MUCOUS MEM SCH ×2 (10:46→20:49)
[2018-08-31] MEDS: SODIUM CHLORIDE 0.9% 1,000 ML IV SCH ×2 (11:17→17:00)
[2018-08-31 12:08] LABS: Glucose,Whole Blood 182 mg/dL (75-99)
[2018-08-31] MEDS: cloNIDine 0.1 MG/24HR PATCH TRANSDERM SCH (14:38)
[2018-08-31] MEDS ORDERED: hydrALAZINE HCL 20 MG/ML 1 ML VIAL IVP PRN (15:41)
[2018-08-31] MEDS: HEPARIN SOD,PORK IN 0.45% NACL 25,000 UNIT in 0.45% NACL 1 500ML.BAG IV SCH (16:09)
[2018-08-31] MEDS: cloNIDine HCL 0.1 MG TAB PO SCH ×2 (16:49→23:42)
[2018-08-31] MEDS: FUROSEMIDE 10 MG/ML 4 ML VIAL IV SCH ×2 (16:50→23:45)
[2018-08-31] MEDS: AMIODARONE 450 MG in DEXTROSE 5% IN WATER 250 ML IV SCH ×2 (17:01)
[2018-08-31 17:22] LABS: Glucose,Whole Blood 137 mg/dL (75-99)
[2018-08-31] MEDS: METOPROLOL TARTRATE 25 MG TAB PO SCH (20:49)
[2018-08-31] MEDS: ATORVASTATIN 40 MG TAB PO SCH (20:49)
[2018-08-31] MEDS: INSULIN DETEMIR 100 UNIT/ML 10 ML VIAL SQ SCH (20:55)
[2018-08-31 21:10] LABS: Glucose,Whole Blood 153 mg/dL (75-99)
[2018-08-31] MEDS: ACETAMINOPHEN TAB 500 MG TAB PO PRN (22:55)
--- NOTE | 2018-08-31 23:15 | P.PN ---
Subjective This is a pleasant 73 years old with previous history of stroke and multi- infarct dementia. Who presents because of dyspnea found to have acute pulmonary edema mostly secondary to atrial fibrillation's with rapid ventricular rate with some elements of LV dysfunction. Patient was admitted and seen by me in the ICU today. His been evaluated by cardiology as well and started on IV diuretics as well as amiodarone. His heart rate is currently better controlled at 71. And blood pressure 155/60. 08/25/2018 Today patient remains in the ICU. She is fully awake. She still have some dyspnea . Patient developed chest pain last night before going to sleep it was about 60/10 in severity, however now is resolved. [employer] evaluated the patient this morning pending, and he recommended metoprolol 25 mg twice a day, patient has high blood pressure 119/67, rest of vitals were stable. WBC 16.4 K. Hemoglobin 7.2. plt 333. Sodium 134, creatinine 1.5, which is close to her baseline of 1.3-1.7. Patient is with history of atrial fibrillation, No anticoagulation in the view of low hemoglobin at 7.2, as per cardiology team recommendation Patient to clarify to me she was not on oxygen at home 08/26/2018 Patient was intubated today after developing respiratory distress secondary to pulmonary edema from a ventricular rate in the view of low ejection fraction of 30-35%.information to continue to try this as patient is sedated and intubated.chest chest x-ray: CHF. Patient was started on Lasix dripas well as amiodarone and metoprolol however at the lower dose as per online retailer. 08/27/2018 pt remains intubated and sedated . she has mildly impaired cardiac function with reduced EF to 45-50% , associated with atrial fibrillation and rapid ventricular rate, pt presents with pulmonary edema that needed incubation, , however in CXR she has basilar atelectasis but pneumonia could not be excluded with vascular congestion on admission, pt in on lasix drip. she has moderate MR , moderate TR, and severe pulmonary hypertension. she is on heparin drip too. 08/28/2018 pt still intubated , pt is still on lasix drip she is making good urine outpt. heparin drip was stopped as her Hb dropped today to 7.3.e has mildly impaired cardiac function with reduced EF to 45-50% , associated with atrial fibrillation and rapid ventricular rate, pt presents with pulmonary edema that needed incubation, she has moderate MR, moderate TR, and severe pulmonary hypertension. 08/29/2018 pt still intubated , pt is still on lasix drip she is making good urine outpt. heparin drip was stopped as her Hb dropped today to 7.3 and 7.1. has mildly impaired cardiac function with reduced EF to 45-50% , associated with atrial fibrillation and rapid ventricular rate, pt presents with pulmonary edema that needed incubation, she has moderate MR, moderate TR, and severe pulmonary hypertension. placed on amiodarone drip today 08/30/18 pt still intubated , pt is still on lasix drip she is making good urine outpt. heparin drip was stopped as her Hb dropped today to 7.3 and 7.1. has mildly impaired cardiac function with reduced EF to 45-50% , associated with atrial fibrillation and rapid ventricular rate, pt presents with pulmonary edema that needed incubation, she has moderate MR, moderate TR, and severe pulmonary hypertension. placed on amiodarone drip today . wbc 18.2 today , her cr is at 1.6 08/31/2018 pt is s/p extubation today she was seeing in the morning on bipap, lethargic and tired and answered with few words, but pt denies chest pain , no dyspnea, pt developed a fib which is converted by amiodarone drip (stopped now) , pt is on metoprolol and lasix 40 mg TID for worsening CHF on her cxr today REVIEW OF SYSTEMS: patient cannot provide information because she is ion bipap and felt tired medication reviewed: tylenol 100 mg, allopurinol 100 mg, Lipitor 40 mg, klonopin 0.5 mg, Plavix 75 mg, vasotec 1.25 mg, folic a 1 mg, Lasix 60 mg, heparin 33524 U, novolog sliding scale, levemir 30 U, imdur 30 mg, melatonin 3 mg, Zofran 4 mg, protonix 40 mg, senokot-s 1 tab, and triamcinolone topical. Metoprolol 12.5 mg. Amiodarone 200 mg. Paxil 10 mg. Calcitriol 0.25 g.clonidine patch 0.1 mg Objective - Vital Signs Vital signs: Vital Signs Temp 97.7 F 08/31/18 16:00 Pulse 76 08/31/18 20:07 Resp 19 08/31/18 19:00 BP 126/50 08/31/18 18:00 Pulse Ox 95 08/31/18 19:00 Intake & Output 08/31/18 08/31/18 09/01/18 06:59 18:59 06:59 Intake Total 842.367 933.155 Output Total 698 660 Balance 144.367 273.155 Weight 91.4 kg Intake: IV 496 548.4 .9 pressure bags 66 78 Dextrose 5% in Water 100 100 200.4 ml @ 618 mls/hr IV .Q10M ONE with Amiodarone 150 mg Rx#:[id number] Furosemide 250 mg In 110 10 Sodium Chloride 0.9% 225 ml @ 10 MG/HR 10 mls/hr IVP .Q24H [facility] Rx#: [id number] Sodium Chloride 0.9% 1, 220 260 000 ml @ 20 mls/hr IV . Q24H [facility] Rx#:[id number] Intake, IV Titration 346.367 384.755 Amount Amiodarone 450 mg In 250 Dextrose 5% in Water 250 ml @ 0.5 MG/MIN 16.66 mls /hr IV .Q15H1M [facility] Rx#: [id number] Clevidipine Butyrate 25 99.700 38.167 mg In Empty Bag 1 bag @ 1 MG/HR 2 mls/hr IV .Q24H [facility] Rx#:[id number] Furosemide 250 mg In 246.667 89.333 Sodium Chloride 0.9% 225 ml @ 10 MG/HR 10 mls/hr IVP .Q24H [facility] Rx#: [id number] Heparin Sod,Pork in 0.45% 7.255 NaCl 25,000 unit In 0.45 % NaCl 1 500ml.bag @ 20 mls/hr IV .Q24H [facility] Rx#: [id number] Output: Urine 698 660 Other: Voiding Method Indwelling Catheter Indwelling Catheter ABP, PAP, CO, CI - Last Documented Arterial Blood Pressure 130/48 - Exam GENERAL: The patient is alert and oriented x3, not in any acute distress. Well developed, well nourished. HEENT: Pupils are round and equally reacting to light. EOMI. No scleral icterus. No conjunctival pallor. Normocephalic, atraumatic. No pharyngeal erythema. No thyromegaly. CARDIOVASCULAR: S1 and S2 present. No murmurs, rubs, or gallops. PULMONARY: Chest is clear to auscultation, no wheezing or crackles. ABDOMEN: Soft, nontender, nondistended, normoactive bowel sounds. No palpable organomegaly. MUSCULOSKELETAL: No joint swelling or deformity. EXTREMITIES: No cyanosis, clubbing, or pedal edema. NEUROLOGICAL: Gross neurological examination did not reveal any focal deficits. SKIN: No rashes. - Labs CBC & Chem 7: 08/31/18 04:38 08/31/18 04:38 Labs: Abnormal Lab Results - Last 24 Hours (Table) 08/31/18 08/31/18 08/31/18 Range/Units 00:36 04:38 04:38 WBC 26.2 H (3.8-10.6) k/uL RBC 2.96 L (3.80-5.40) m/uL Hgb 7.5 L (11.4-16.0) gm/dL Hct 24.4 L (34.0-46.0) % MCHC 30.6 L (31.0-37.0) g/dL RDW 17.8 H (11.5-15.5) % Neutrophils # 20.1 H (1.3-7.7) k/uL Monocytes # 2.8 H (0-1.0) k/uL APTT (22.0-30.0) sec Sodium 132 L (137-145) mmol/L Chloride 88 L (98-107) mmol/L Carbon Dioxide 35 H (22-30) mmol/L BUN 38 H (7-17) mg/dL Creatinine 1.73 H (0.52-1.04) mg/dL Glucose 146 H (74-99) mg/dL POC Glucose (mg/dL) 161 H (75-99) mg/dL Phosphorus 5.2 H (2.5-4.5) mg/dL 08/31/18 08/31/18 08/31/18 Range/Units 06:39 08:10 11:45 WBC (3.8-10.6) k/uL RBC (3.80-5.40) m/uL Hgb (11.4-16.0) gm/dL Hct (34.0-46.0) % MCHC (31.0-37.0) g/dL RDW (11.5-15.5) % Neutrophils # (1.3-7.7) k/uL Monocytes # (0-1.0) k/uL APTT 43.9 H (22.0-30.0) sec Sodium (137-145) mmol/L Chloride (98-107) mmol/L Carbon Dioxide (22-30) mmol/L BUN (7-17) mg/dL Creatinine (0.52-1.04) mg/dL Glucose (74-99) mg/dL POC Glucose (mg/dL) 184 H 182 H (75-99) mg/dL Phosphorus (2.5-4.5) mg/dL 08/31/18 08/31/18 Range/Units 14:24 17:06 WBC (3.8-10.6) k/uL RBC (3.80-5.40) m/uL Hgb (11.4-16.0) gm/dL Hct (34.0-46.0) % MCHC (31.0-37.0) g/dL RDW (11.5-15.5) % Neutrophils # (1.3-7.7) k/uL Monocytes # (0-1.0) k/uL APTT 86.5 H (22.0-30.0) sec Sodium (137-145) mmol/L Chloride (98-107) mmol/L Carbon Dioxide (22-30) mmol/L BUN (7-17) mg/dL Creatinine (0.52-1.04) mg/dL Glucose (74-99) mg/dL POC Glucose (mg/dL) 137 H (75-99) mg/dL Phosphorus (2.5-4.5) mg/dL Assessment and Plan Assessment: Acute hypoxic respiratory failure, secondary to acute pulmonary edema. Present on admission acute CHF ,systolic status post extuation on 08/30/18 atrial fibrillation's with rapid ventricular rate Acute on chronic diastolic congestive heart failure Ischemic stroke in the left middle cerebral artery with residual right sided hemiplegia and dysarthria. Recent aspiration pneumonia of the right lower lobe, on Augmentin Recent right ankle fractures with medial my last and fibular fracture secondary to fall, been managed with a brace; nonsurgical management Vascular dementia 2 diabetes mellitus and GERD Hyperlipidemia Gestational hypertension Degenerative joint disease Chronic kidney disease stage III Chronic low back pain Chronic urine incontinence Generalized anxiety disorder Moderate mitral and tricuspid regurgitation, nontraumatic secondary pulmonary hypertension Plan: We recommend to continue with the same treatment. Continue with symptomatic treatment. Follow-up cardiology recommendations and their input is appreciated. Pulmonary/critical care R following the case. continue with their recommendation while in the ICU and patient is intubated. Patient was started on heparin drip and Lasix triple GI and DVT prophylaxis. Further recommendations the clinical course of the patient .Prognosis is guarded
[2018-09-01] MEDS: AMIODARONE 450 MG in DEXTROSE 5% IN WATER 250 ML IV SCH ×4 (02:10→20:04)
[2018-09-01] MEDS: IPRATROPIUM-ALBUTEROL 3 ML NEB INHALATION SCH ×6 (04:04→23:56)
[2018-09-01] MEDS: HEPARIN SOD,PORK IN 0.45% NACL 25,000 UNIT in 0.45% NACL 1 500ML.BAG IV SCH (04:10)
[2018-09-01 04:49] LABS: Anisocytosis Slight; HCT 21.3 % (34.0-46.0); Hypochromasia Marked; MCH 24.8 pg (25.0-35.0); MCV 82.6 fL (80.0-100.0); Mean Platelet Volume 6.8; Microcytosis Slight; Platelet Count 350 k/uL (150-450); Poikilocytosis Moderate; RBC 2.58 m/uL (3.80-5.40); RDW 18.3 % (11.5-15.5); WBC 19.8 k/uL (3.8-10.6)
[2018-09-01 05:09] LABS: Albumin 2.7 g/dL (3.5-5.0); Calcium 8.5 mg/dL (8.4-10.2); Magnesium 2.3 mg/dL (1.6-2.3); Phosphorus 4.2 mg/dL (2.5-4.5); Potassium 3.7 mmol/L (3.5-5.1); Total Bilirubin 0.5 mg/dL (0.2-1.3); Total Protein 5.9 g/dL (6.3-8.2)
[2018-09-01] MEDS: ACETAMINOPHEN TAB 500 MG TAB PO PRN ×4 (05:12→23:04)
[2018-09-01 05:20] LABS: HGB 6.4 gm/dL (11.4-16.0)
--- NOTE | 2018-09-01 06:47 | XR ---
EXAMINATION TYPE: XR chest 1V portable DATE OF EXAM: 09/01/2018 COMPARISON: Yesterday HISTORY: Check tube placement difficulty breathing TECHNIQUE: Single frontal view of the chest is obtained. FINDINGS: There is left-sided central venous catheter with the tip in the lower superior vena cava. No pneumothorax. There is pulmonary edema. There is blunting of costophrenic angles. There are chest leads. IMPRESSION: Congestive heart failure with pleural effusions and pulmonary edema. No change.
[2018-09-01] MEDS: POTASSIUM CHLORIDE 10 MEQ in WATER FOR INJECTION 1 100ML.BAG IVPB SCH ×2 (07:12→08:31)
[2018-09-01 07:26] LABS: Glucose,Whole Blood 108 mg/dL (75-99)
--- NOTE | 2018-09-01 07:54 | P.PN ---
Subjective Progress Note Date: 09/01/18 Principal diagnosis: Acute hypoxic respiratory failure This is a pleasant 73-year-old female patient with known history of coronary artery disease and status post CABG, chronic obstructive pulmonary disease, chronic kidney disease, paroxysmal atrial fibrillation, and history of stroke, was admitted to the intensive care unit with congestive heart failure secondary to diastole dysfunction as well as COPD exacerbation. She underwent an echocardiogram and that revealed mildly impaired LV function with EF of 45%, moderate MR, moderate TR, and severe pulmonary hypertension. The cardiac enzymes are slightly elevated. On follow-up with the patient today, September [id number], she is doing better. She was extubated the day before yesterday. Yesterday she was in mild respiratory distress but she is looking better today. She has been maintaining normal sinus mechanism. Because of that I am going to DC the amiodarone IV and start the patient on amiodarone by mouth at 400 mg by mouth twice a day. Continue metoprolol by mouth. The hemoglobin dropped to around 6 and I would give the patient one unit of packed RBC and I would also DC the heparin IV on her. The chest x-ray from today continues to show findings consistent with CHF and the patient currently on Lasix IV. Objective - Vital Signs Vital signs: Vital Signs Temp 98.2 F 09/01/18 04:00 Pulse 72 09/01/18 07:00 Resp 14 09/01/18 07:00 BP 145/51 09/01/18 07:00 Pulse Ox 96 09/01/18 07:00 Intake & Output 08/31/18 09/01/18 09/01/18 18:59 06:59 18:59 Intake Total 933.155 422.124 26.599 Output Total 660 352 45 Balance 273.155 70.124 -18.401 Intake: IV 548.4 419.6 26 .9 pressure bags 78 66 6 Dextrose 5% in Water 100 200.4 133.6 ml @ 618 mls/hr IV .Q10M ONE with Amiodarone 150 mg Rx#:[id number] Furosemide 250 mg In 10 Sodium Chloride 0.9% 225 ml @ 10 MG/HR 10 mls/hr IVP .Q24H [facility] Rx#: [id number] Sodium Chloride 0.9% 1, 260 220 20 000 ml @ 20 mls/hr IV . Q24H [facility] Rx#:[id number] Intake, IV Titration 384.755 2.524 0.599 Amount Amiodarone 450 mg In 250 Dextrose 5% in Water 250 ml @ 0.5 MG/MIN 16.66 mls /hr IV .Q15H1M [facility] Rx#: [id number] Clevidipine Butyrate 25 38.167 mg In Empty Bag 1 bag @ 1 MG/HR 2 mls/hr IV .Q24H [facility] Rx#:[id number] Furosemide 250 mg In 89.333 Sodium Chloride 0.9% 225 ml @ 10 MG/HR 10 mls/hr IVP .Q24H [facility] Rx#: [id number] Heparin Sod,Pork in 0.45% 7.255 2.524 0.599 NaCl 25,000 unit In 0.45 % NaCl 1 500ml.bag @ 20 mls/hr IV .Q24H [facility] Rx#: [id number] Output: Urine 660 352 45 Other: Voiding Method Indwelling Catheter Indwelling Catheter ABP, PAP, CO, CI - Last Documented Arterial Blood Pressure 159/39 - Constitutional General appearance: Present: no acute distress - Respiratory Respiratory: bilateral: CTA - Cardiovascular Rhythm: regular Heart sounds: normal: S1, S2 Abnormal Heart Sounds: Present: systolic murmur - Labs CBC & Chem 7: 09/01/18 04:04 09/01/18 04:04 Labs: Abnormal Lab Results - Last 24 Hours (Table) 08/31/18 08/31/18 08/31/18 Range/Units 08:10 11:45 14:24 WBC (3.8-10.6) k/uL RBC (3.80-5.40) m/uL Hgb (11.4-16.0) gm/dL Hct (34.0-46.0) % MCH (25.0-35.0) pg MCHC (31.0-37.0) g/dL RDW (11.5-15.5) % APTT 43.9 H 86.5 H (22.0-30.0) sec Sodium (137-145) mmol/L Chloride (98-107) mmol/L Carbon Dioxide (22-30) mmol/L BUN (7-17) mg/dL Creatinine (0.52-1.04) mg/dL POC Glucose (mg/dL) 182 H (75-99) mg/dL AST (14-36) U/L Total Protein (6.3-8.2) g/dL Albumin (3.5-5.0) g/dL 08/31/18 08/31/18 08/31/18 Range/Units 17:06 20:45 20:47 WBC (3.8-10.6) k/uL RBC (3.80-5.40) m/uL Hgb (11.4-16.0) gm/dL Hct (34.0-46.0) % MCH (25.0-35.0) pg MCHC (31.0-37.0) g/dL RDW (11.5-15.5) % APTT 51.8 H (22.0-30.0) sec Sodium (137-145) mmol/L Chloride (98-107) mmol/L Carbon Dioxide (22-30) mmol/L BUN (7-17) mg/dL Creatinine (0.52-1.04) mg/dL POC Glucose (mg/dL) 137 H 153 H (75-99) mg/dL AST (14-36) U/L Total Protein (6.3-8.2) g/dL Albumin (3.5-5.0) g/dL 09/01/18 09/01/18 09/01/18 Range/Units 04:04 04:04 04:04 WBC 19.8 H (3.8-10.6) k/uL RBC 2.58 L (3.80-5.40) m/uL Hgb 6.4 L* (11.4-16.0) gm/dL Hct 21.3 L (34.0-46.0) % MCH 24.8 L (25.0-35.0) pg MCHC 30.0 L (31.0-37.0) g/dL RDW 18.3 H (11.5-15.5) % APTT 52.1 H (22.0-30.0) sec Sodium 132 L (137-145) mmol/L Chloride 90 L (98-107) mmol/L Carbon Dioxide 34 H (22-30) mmol/L BUN 48 H (7-17) mg/dL Creatinine 1.89 H (0.52-1.04) mg/dL POC Glucose (mg/dL) (75-99) mg/dL AST 96 H (14-36) U/L Total Protein 5.9 L (6.3-8.2) g/dL Albumin 2.7 L (3.5-5.0) g/dL 09/01/18 Range/Units 07:14 WBC (3.8-10.6) k/uL RBC (3.80-5.40) m/uL Hgb (11.4-16.0) gm/dL Hct (34.0-46.0) % MCH (25.0-35.0) pg MCHC (31.0-37.0) g/dL RDW (11.5-15.5) % APTT (22.0-30.0) sec Sodium (137-145) mmol/L Chloride (98-107) mmol/L Carbon Dioxide (22-30) mmol/L BUN (7-17) mg/dL Creatinine (0.52-1.04) mg/dL POC Glucose (mg/dL) 108 H (75-99) mg/dL AST (14-36) U/L Total Protein (6.3-8.2) g/dL Albumin (3.5-5.0) g/dL Assessment and Plan Assessment: Assessment #1 congestive heart failure exacerbation secondary to diastolic dysfunction, acute on chronic #2 acute exacerbation of COPD #3 severe pulmonary hypertension #4 paroxysmal atrial fibrillation #5 coronary artery disease and status post CABG #6 chest discomfort #7 multiple comorbid conditions Plan DC amiodarone IV and start the patient on amiodarone by mouth Continue metoprolol by mouth Continue Lasix IV Stop the heparin IV in view of the low hemoglobin requiring blood transfusion Follow-up with the patient
[2018-09-01] MEDS: PARoxetine 10 MG TAB PO SCH (08:28)
[2018-09-01] MEDS: ALLOPURINOL 100 MG TAB PO SCH (08:28)
[2018-09-01] MEDS: AMIODARONE 200 MG TAB PO SCH ×2 (08:28→21:14)
[2018-09-01] MEDS: PANTOPRAZOLE 40 MG TABLET PO SCH ×2 (08:28→16:30)
[2018-09-01] MEDS: ONDANSETRON 4 MG TAB PO SCH ×3 (08:28→16:30)
[2018-09-01] MEDS: CLOPIDOGREL 75 MG TAB PO SCH (08:28)
[2018-09-01] MEDS: cloNIDine HCL 0.1 MG TAB PO SCH ×3 (08:28→21:14)
[2018-09-01] MEDS: CYANOCOBALAMIN-FA-PYRIDOXINE 1 EACH TAB PO SCH (08:28)
[2018-09-01] MEDS: FUROSEMIDE 10 MG/ML 4 ML VIAL IV SCH ×3 (08:28→23:05)
[2018-09-01] MEDS: CHLORHEXIDINE GLUCONATE 15 ML CUP MUCOUS MEM SCH ×2 (08:28→20:57)
--- NOTE | 2018-09-01 08:44 | P.PN ---
Subjective Progress Note Date: 09/01/18 Principal diagnosis: Respiratory failure Progress note dated 08/26/2018 This is a 73-year-old female with a history of hypoxemic respiratory failure secondary to pulmonary edema complicated by atrial fibrillation/RVR. Her ejection fraction is diminished at 30-35%. She also has severe pulmonary hypertension by echocardiogram. 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 Apparently last night or so, she developed worsening respiratory failure. Her blood pressure was elevated and she had atrial fibrillation with RVR. 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 Currently, she is on the assist control mode rate of 20, tidal volume is 400 FiO2 100% PEEP of 5. Blood gases on those settings include a PaO2 of 100 PaCO2 of 55 and a pH 7.37. We will decrease the tidal volume to 350 and increase the rate to 26. Currently she is on propofol at 35 mics per kilogram per minute, a saline IV at 20 mL an hour heparin via weightbase protocol and Lasix drip at 10 mg an hour. Chest x-ray is consistent with heart failure. The patient will need tube feeds. Vent changes will be made by respiratory. The patient will also need an art line and central line. I did speak to the family in detail. Progress note dated 08/27/2018 73-year-old female with a history of hypoxemic respiratory failure secondary to flash pulmonary edema which was also complicated by atrial fibrillation with rapid ventricular response. Her ejection fraction is diminished at 30-35%. In addition by echocardiogram, she has severe pulmonary hypertension. 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 The patient remains on the volume assist control mode with a rate of 20, tidal volume 350, FiO2 50% and PEEP of 5. Arterial blood gases show a PaO2 of 129 a PaCO2 44 and a pH of 7.50. This is consistent with metabolic alkalosis in part related to volume contraction but also hypokalemia. I did ask the nurse to correct the potassium which was 3.3. The Lasix drip is at 10 mg an hour propofol is a 35 mics per kilogram per minute and heparin is at weightbase protocol. She get a saline IV KVO. Chest x-rays consistent with fluid overload /CHF. Progress note dated 08/28/2018 73-year-old female with a history of hypoxemic respiratory failure, secondary to flash pulmonary edema complicated by atrial fibrillation/RVR. Her ejection fraction is reduced at 30-35%. By echocardiogram, the patient has severe pulmonary hypertension. 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 The patient remains on the volume assist control mode with a rate of 26, tidal volume 350, FiO2 40% and PEEP of 5. Arterial blood gases show a PaO2 of 79 a PaCO2 of 48 and a pH is 7.47. These arterial blood gases are consistent with a relative hypoxemia and a metabolic alkalosis. The chest x-rays consistent with fluid overload. Microbiologic studies are negative. She remains on vital AF with a rate of 33 and a goal of 33 mL an hour, saline IV at KVO, propofol at 40 mics per kilogram per minute, Cleveprex at 2 mg an hour, and Lasix drip at 10 mg an hour. Her lab data includes a white count of 20.1, hemoglobin 7.3, hematocrit 25.1, and a platelet count of 461,000. In addition, sodium 135, potassium 3.8, chloride 93, CO2 33, the BUN of 36 and a creatinine of 1.69. The patient will have a daily interruption of sedation today to evaluate her as to whether or not she might be a candidate for a spontaneous breathing trial. Progress note dated 08/30/2018 This is a 73-year-old female with history of hypoxemic respiratory failure requiring intubation and mechanical ventilation secondary to flash pulmonary edema. Her respiratory failure was complicated by atrial fibrillation and RVR. In addition, she has an ejection fraction of about 30%. 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 Currently, the patient's on the volume assist control mode with a rate of 26, tidal volume 350, FiO2 40%, and PEEP of 5. Arterial blood gases show a PaO2 of 82 PaCO2 46 and pH of 7.53. Her IVs include a saline IV at 20 mL an hour, Lasix drip at 10 mg an hour, propofol at 40 mics per kilogram per minute, Cleveprex 1 mg per hour, amiodarone at 0.5 mg/m and heparin via weightbase protocol. Chest x-ray shows only minimal improvement of the lung cohen secondary to fluid overload/pulmonary edema. Yesterday, we did do a daily interruption of sedation but we did not do a spontaneous breathing trial given her poor oxygenation. Microbiologic studies continue to be negative. Chest x-ray continues to show fluid overload with bilateral effusions. Progress note dated 08/31/2018 73-year-old female with a history of hypoxemic respiratory failure requiring intubation and mechanical ventilation secondary to flash pulmonary edema. Yesterday, she was extubated. In addition, she has a history of atrial fibrillation with RVR, a reduced ejection fraction of about 30% and a history of severe pulmonary hypertension, aspiration pneumonia, CVA, COPD, diabetes, multi-infarct dementia, essential hypertension, stage III chronic kidney disease , anxiety, GERD, hyperlipidemia and recent right ankle fracture. Currently, she is on BiPAP at 10 and 5 and 40%. The patient can be switched over to nasal cannula. I told the nurses and respiratory therapist to start at 4-5 L/m. In addition, she is on heparin via weightbase protocol, a saline IV at 20 mL an hour Cleveprex at 3 mg an hour amiodarone a 5 mg/m and Lasix drip at 10 mg an hour. I will start her back on her oral antihypertensive, which was clonidine, 0.1 mg 3 times a day. I did have a conversation with the patient's daughter today. She does understand that mom is still not out of the tellez. Her chest x -ray didn't show some bilateral pleural effusions and some mild fluid overload. Progress note dated 09/01/2018 73-year-old female with history of hypoxemic respiratory failure which required intubation and mechanical ventilation secondary to flash pulmonary edema. The patient was extubated 2 days ago. She required BiPAP initially but now has been weaned to nasal O2. She's currently on 6 L by nasal cannula. She's doing relatively well. Her chest x-ray still shows a pattern of fluid overload/ pulmonary edema. In addition to the supplemental oxygen, she is on a saline IV at 10 mL an hour, amiodarone drip of 0.5 mg/m and heparin has been discontinued as of a low hemoglobin of 6.4. A unit of blood was ordered by the centrifugal spinner. She'll receive 40 of Lasix after the unit of blood. In addition , we will add Zaroxolyn to her regimen at 2.5 mg every day. Her blood pressure is been better controlled by the addition of beta delma and her normal home dose of clonidine at .1 mg 3 times a day. I told her respiratory therapist, that the BiPAP device could be discontinued from the room. Laboratory data currently includes a white count of 19.8, hemoglobin 6.4, hematocrit 21.3 and a normal platelet count. In addition, she has a sodium of 132, potassium 3.7, chloride 90, CO2 34, normal anion gap, and a BUN and creatinine of 48 and 1.89, respectively. Microbiologic studies are thus far negative. Objective - Vital Signs Vital signs: Vital Signs Temp 98.2 F 09/01/18 04:00 Pulse 72 09/01/18 07:00 Resp 14 09/01/18 07:00 BP 145/51 09/01/18 07:00 Pulse Ox 96 09/01/18 07:00 Intake & Output 08/31/18 09/01/18 09/01/18 18:59 06:59 18:59 Intake Total 933.155 422.124 26.599 Output Total 660 352 45 Balance 273.155 70.124 -18.401 Intake: IV 548.4 419.6 26 .9 pressure bags 78 66 6 Dextrose 5% in Water 100 200.4 133.6 ml @ 618 mls/hr IV .Q10M ONE with Amiodarone 150 mg Rx#:[id number] Furosemide 250 mg In 10 Sodium Chloride 0.9% 225 ml @ 10 MG/HR 10 mls/hr IVP .Q24H [facility] Rx#: [id number] Sodium Chloride 0.9% 1, 260 220 20 000 ml @ 20 mls/hr IV . Q24H [facility] Rx#:[id number] Intake, IV Titration 384.755 2.524 0.599 Amount Amiodarone 450 mg In 250 Dextrose 5% in Water 250 ml @ 0.5 MG/MIN 16.66 mls /hr IV .Q15H1M [facility] Rx#: [id number] Clevidipine Butyrate 25 38.167 mg In Empty Bag 1 bag @ 1 MG/HR 2 mls/hr IV .Q24H [facility] Rx#:[id number] Furosemide 250 mg In 89.333 Sodium Chloride 0.9% 225 ml @ 10 MG/HR 10 mls/hr IVP .Q24H [facility] Rx#: [id number] Heparin Sod,Pork in 0.45% 7.255 2.524 0.599 NaCl 25,000 unit In 0.45 % NaCl 1 500ml.bag @ 20 mls/hr IV .Q24H [facility] Rx#: [id number] Output: Urine 660 352 45 Other: Voiding Method Indwelling Catheter Indwelling Catheter ABP, PAP, CO, CI - Last Documented Arterial Blood Pressure 159/39 - Exam No acute distress, awake and alert, with nasal O2 in place. She looks relatively comfortable. HEENT examination is grossly unremarkable. Mucous membranes are moist. Neck supple. Full range of motion. No adenopathy thyromegaly or neck vein distention. Cardiovascular examination reveals regular rhythm rate. S1-S2 normal. No S3 or S4. No discernible murmur noted. Heart sounds are distant. Heart rate is 83 bpm Lungs reveal coarse bilateral crackles and rhonchi. Breath sounds are diminished throughout. Breath sounds are equal bilaterally. No wheezes. Breath sounds are slightly improved. Abdomen soft and bowel sounds are heard. No masses or tenderness. Extremities are intact. No cyanosis clubbing or edema. Skin is without rash or lesion. Neurologic examination is nonfocal. She does move all 4 extremities - Labs CBC & Chem 7: 09/01/18 04:04 09/01/18 04:04 Labs: Abnormal Lab Results - Last 24 Hours (Table) 08/31/18 08/31/18 08/31/18 Range/Units 11:45 14:24 17:06 WBC (3.8-10.6) k/uL RBC (3.80-5.40) m/uL Hgb (11.4-16.0) gm/dL Hct (34.0-46.0) % MCH (25.0-35.0) pg MCHC (31.0-37.0) g/dL RDW (11.5-15.5) % APTT 86.5 H (22.0-30.0) sec Sodium (137-145) mmol/L Chloride (98-107) mmol/L Carbon Dioxide (22-30) mmol/L BUN (7-17) mg/dL Creatinine (0.52-1.04) mg/dL POC Glucose (mg/dL) 182 H 137 H (75-99) mg/dL AST (14-36) U/L Total Protein (6.3-8.2) g/dL Albumin (3.5-5.0) g/dL 08/31/18 08/31/18 09/01/18 Range/Units 20:45 20:47 04:04 WBC (3.8-10.6) k/uL RBC (3.80-5.40) m/uL Hgb (11.4-16.0) gm/dL Hct (34.0-46.0) % MCH (25.0-35.0) pg MCHC (31.0-37.0) g/dL RDW (11.5-15.5) % APTT 51.8 H (22.0-30.0) sec Sodium 132 L (137-145) mmol/L Chloride 90 L (98-107) mmol/L Carbon Dioxide 34 H (22-30) mmol/L BUN 48 H (7-17) mg/dL Creatinine 1.89 H (0.52-1.04) mg/dL POC Glucose (mg/dL) 153 H (75-99) mg/dL AST 96 H (14-36) U/L Total Protein 5.9 L (6.3-8.2) g/dL Albumin 2.7 L (3.5-5.0) g/dL 09/01/18 09/01/18 09/01/18 Range/Units 04:04 04:04 07:14 WBC 19.8 H (3.8-10.6) k/uL RBC 2.58 L (3.80-5.40) m/uL Hgb 6.4 L* (11.4-16.0) gm/dL Hct 21.3 L (34.0-46.0) % MCH 24.8 L (25.0-35.0) pg MCHC 30.0 L (31.0-37.0) g/dL RDW 18.3 H (11.5-15.5) % APTT 52.1 H (22.0-30.0) sec Sodium (137-145) mmol/L Chloride (98-107) mmol/L Carbon Dioxide (22-30) mmol/L BUN (7-17) mg/dL Creatinine (0.52-1.04) mg/dL POC Glucose (mg/dL) 108 H (75-99) mg/dL AST (14-36) U/L Total Protein (6.3-8.2) g/dL Albumin (3.5-5.0) g/dL Assessment and Plan Assessment: Assessment Acute hypoxemic respiratory failure, secondary to CHF/pulmonary edema and complicated by atrial fibrillation/RVR in a patient with an echocardiogram showing ejection fraction of 30-35%, requiring intubation and mechanical ventilation on August 26. Status post extubation from mechanical ventilation on August 30 Severe pulmonary hypertension by echocardiogram. 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 Everything else the same. Arterial line and central line will be placed. Patient is currently on propofol at 35 mics per kilogram per minute heparin via weightbase protocol and Lasix drip 10 mg an hour. We'll make sure that with tube feedings are started. Chest x-rays consistent with heart failure/fluid overload. I did speak to the family. Prognosis is guarded given her age. Additional recommendations and suggestions are forthcoming. Microbiology is negative. White count is 20.1, he will may 0.2, hematocrit 27.4 , and platelet count 524,000. Sodium 133, potassium 3.9, chloride is 90, CO2 32 , BUN 33 and creatinine 1.63. Medications are reviewed. Critical care time 34 minutes. Plan dated 08/27/2018 The patient remains on the ventilator. We do drop the FiO2 from 50 to 40%. She remains on IV Lasix, propofol and IV heparin. She is being nourished with Vital AF at a rate of 33 with a goal of 33 mL an hour. I did tell the nurse to replace the past has seen him aggressively which is one of the reasons why she has a metabolic alkalosis. Her potassium this morning was only 3.3. Chest x- ray shows CHF. Microbiologic studies are negative thus far. Labs show a white count of 14.9, hemoglobin 7.4, hematocrit 24.8 and platelet count 385,000. PTT is 92.4. Sodium 131 potassium 3.3 chloride is 91 CO2 31, with a BUN of 36 and creatinine 1.63. Anion gap is normal. Her current medications are reviewed. They appear to be appropriate. We will continue to follow. Prognosis is guarded. Additional recommendations and suggestions are forthcoming. Critical care time 34 minutes Plan dated 08/28/2018 The patient will have a daily interruption of sedation. The patient's heparin had been discontinued. We'll give the patient some additional potassium to correct the metabolic alkalosis. Chest x-ray still shows evidence of fluid overload. Microbiologic studies are negative. Prognosis remains guarded. Labs have been reviewed. Medications have been reviewed. Additional recommendations and suggestions are forthcoming. Critical care time 35 minutes Plan dated 08/30/2018 The patient remains on a number of IV drips including Lasix, propofol, Cleveprex , amiodarone, and heparin. The labs today include a white count of 18.2 hemoglobin 7.1 hematocrit 23.2 and platelet count 360,000. PTT is 52.1. Arterial blood gases continued to show a metabolic alkalosis. Sodium is 132, potassium 4.2, chlorides 90 CO2 36 BUN 36 and creatinine 1.67. We will check on the patient's bicarbonate concentration on admission. This might be a post hypercapnic alkalosis and/or a metabolic alkalosis induced by hypokalemia and volume contraction given the fact she is on Lasix drip. Overall prognosis remains guarded. We will do a daily interruption of sedation and hopefully a spontaneous breathing trial today. Chest x-ray my opinion is a bit better today on Mrs. Jarvis. Critical care time 36 minutes Plan dated 08/31/2018 The patient was successfully extubated on August 30. She has been on BiPAP overnight. This morning, we will switch her to nasal cannula. We will get her back on her normal blood pressure medications. She still remains on IV heparin , Cleveprex, amiodarone, and Lasix drip. Chest x-ray still showing fluid overload. Microbiologic studies are negative. Lab data includes a white count of 26.2, hemoglobin 7.5, hematocrit 24.4 and platelet count 449,000. PTT is 43.9. Sodium 132, potassium 4.3, chlorides 88, CO2 35, BUN 38, and creatinine 1.73. Medications are reviewed. Additional recommendations and suggestions are forthcoming. I will switch her Lasix to 40 mg IV push every 8 hours. I will add clonidine 0.1 mg 3 times a day or clonidine TTS to eventually wean her off the Cleveprex. Prognosis is guarded. Critical care time 36 minutes Plan dated 09/01/2018 The patient is doing better. Clinically she is much improved. She is not requiring the BiPAP device. She is on nasal O2 6 L. She still on the amiodarone drip. Heparin has been discontinued. She will receive 1 unit of blood. Hemoglobin was 6.4. After the unit of blood, she'll get some additional Lasix 40 mg IV push. Finally, I asked the nurses to start her on Zaroxolyn 2.5 mg every day. Chest x-ray has slowly improved. It shows a pattern of fluid overload. She will stay in the ICU. She is still critically ill. Microbiologic studies are negative. X-rays labs and medications are all reviewed. Critical care time 33 minutes Time with Patient: Greater than 30
[2018-09-01] MEDS: ISOSORBIDE MONONITRATE ER 30 MG TAB.ER.24H PO SCH (08:47)
[2018-09-01] MEDS: METOPROLOL TARTRATE 25 MG TAB PO SCH ×2 (08:47→21:14)
[2018-09-01] MEDS: INSULIN ASPART 100 UNIT/ML 1 ML 10 ML VIAL SQ SCH ×4 (08:53→21:05)
[2018-09-01 08:57] LABS: Glucose,Whole Blood 101 mg/dL (75-99)
[2018-09-01] MEDS: METOLAZONE 2.5 MG TAB PO SCH (10:03)
[2018-09-01 12:23] LABS: Glucose,Whole Blood 140 mg/dL (75-99)
[2018-09-01] MEDS ORDERED: FUROSEMIDE 10 MG/ML 4 ML VIAL IV STA (12:34)
[2018-09-01 13:23] LABS: Anisocytosis Slight; HCT 24.1 % (34.0-46.0); HGB 7.3 gm/dL (11.4-16.0); Hypochromasia Marked; MCH 25.3 pg (25.0-35.0); MCHC 30.2 g/dL (31.0-37.0); MCV 83.6 fL (80.0-100.0); Mean Platelet Volume 7.7; Microcytosis Slight; Platelet Count 317 k/uL (150-450); Poikilocytosis Moderate; RBC 2.88 m/uL (3.80-5.40); RDW 18.6 % (11.5-15.5); WBC 18.4 k/uL (3.8-10.6)
[2018-09-01] MEDS ORDERED: POTASSIUM CHLORIDE ER 20 MEQ TAB.ER PO SCH (16:00)
[2018-09-01 16:32] LABS: Glucose,Whole Blood 99 mg/dL (75-99)
--- NOTE | 2018-09-01 16:55 | P.PN ---
Subjective 73 years old with previous history of stroke and multi-infarct dementia. Who presents because of dyspnea found to have acute pulmonary edema mostly secondary to atrial fibrillation's with rapid ventricular rate with some elements of LV dysfunction. Patient was admitted and seen by me in the ICU today. His been evaluated by cardiology as well and started on IV diuretics as well as amiodarone. His heart rate is currently better controlled at 71. And blood pressure 155/60. 08/25/2018 Today patient remains in the ICU. She is fully awake. She still have some dyspnea . Patient developed chest pain last night before going to sleep it was about 60/10 in severity, however now is resolved. Resaw Operator evaluated the patient this morning pending, and he recommended metoprolol 25 mg twice a day, patient has high blood pressure 119/67, rest of vitals were stable. WBC 16.4 K. Hemoglobin 7.2. plt 333. Sodium 134, creatinine 1.5, which is close to her baseline of 1.3-1.7. Patient is with history of atrial fibrillation, No anticoagulation in the view of low hemoglobin at 7.2, as per cardiology team recommendation Patient to clarify to me she was not on oxygen at home 08/26/2018 Patient was intubated today after developing respiratory distress secondary to pulmonary edema from a ventricular rate in the view of low ejection fraction of 30-35%.information to continue to try this as patient is sedated and intubated.chest chest x-ray: CHF. Patient was started on Lasix dripas well as amiodarone and metoprolol however at the lower dose as per manager chemistry. 08/27/2018 pt remains intubated and sedated . she has mildly impaired cardiac function with reduced EF to 45-50% , associated with atrial fibrillation and rapid ventricular rate, pt presents with pulmonary edema that needed incubation, , however in CXR she has basilar atelectasis but pneumonia could not be excluded with vascular congestion on admission, pt in on lasix drip. she has moderate MR , moderate TR, and severe pulmonary hypertension. she is on heparin drip too. 08/28/2018 pt still intubated , pt is still on lasix drip she is making good urine outpt. heparin drip was stopped as her Hb dropped today to 7.3.e has mildly impaired cardiac function with reduced EF to 45-50% , associated with atrial fibrillation and rapid ventricular rate, pt presents with pulmonary edema that needed incubation, she has moderate MR, moderate TR, and severe pulmonary hypertension. 08/29/2018 pt still intubated , pt is still on lasix drip she is making good urine outpt. heparin drip was stopped as her Hb dropped today to 7.3 and 7.1. has mildly impaired cardiac function with reduced EF to 45-50% , associated with atrial fibrillation and rapid ventricular rate, pt presents with pulmonary edema that needed incubation, she has moderate MR, moderate TR, and severe pulmonary hypertension. placed on amiodarone drip today 08/30/18 pt still intubated , pt is still on lasix drip she is making good urine outpt. heparin drip was stopped as her Hb dropped today to 7.3 and 7.1. has mildly impaired cardiac function with reduced EF to 45-50% , associated with atrial fibrillation and rapid ventricular rate, pt presents with pulmonary edema that needed incubation, she has moderate MR, moderate TR, and severe pulmonary hypertension. placed on amiodarone drip today . wbc 18.2 today , her cr is at 1.6 08/31/2018 pt is s/p extubation today she was seeing in the morning on bipap, lethargic and tired and answered with few words, but pt denies chest pain , no dyspnea, pt developed a fib which is converted by amiodarone drip (stopped now) , pt is on metoprolol and lasix 40 mg TID for worsening CHF on her cxr today 09/01/2018 No overnight events patient still has some crackles patient remains on amiodarone drip patient is in aspirin cannula oxygen will be monitored one more night in ICU Constitutional: Denied any fatigue denied any fever. Cardio vascular: denied any chest pain, palpitations Gastrointestinal denied any nausea vomiting Pulmonary: Denied any shortness of breath cough Neurologic denied any new focal deficits Objective - Vital Signs Vital signs: Vital Signs Temp 98.6 F 09/01/18 11:45 Pulse 64 09/01/18 16:28 Resp 14 09/01/18 15:00 BP 125/55 09/01/18 15:00 Pulse Ox 98 09/01/18 15:00 Intake & Output 08/31/18 09/01/18 09/01/18 18:59 06:59 18:59 Intake Total 933.155 422.124 535.599 Output Total 660 352 595 Balance 273.155 70.124 -59.401 Intake: IV 548.4 419.6 225 .9 pressure bags 78 66 45 Dextrose 5% in Water 100 200.4 133.6 ml @ 618 mls/hr IV .Q10M ONE with Amiodarone 150 mg Rx#:[id number] Furosemide 250 mg In 10 Sodium Chloride 0.9% 225 ml @ 10 MG/HR 10 mls/hr IVP .Q24H [facility] Rx#: [id number] Sodium Chloride 0.9% 1, 260 220 180 000 ml @ 20 mls/hr IV . Q24H [facility] Rx#:[id number] Intake, IV Titration 384.755 2.524 0.599 Amount Amiodarone 450 mg In 250 Dextrose 5% in Water 250 ml @ 0.5 MG/MIN 16.66 mls /hr IV .Q15H1M [facility] Rx#: [id number] Clevidipine Butyrate 25 38.167 mg In Empty Bag 1 bag @ 1 MG/HR 2 mls/hr IV .Q24H [facility] Rx#:[id number] Furosemide 250 mg In 89.333 Sodium Chloride 0.9% 225 ml @ 10 MG/HR 10 mls/hr IVP .Q24H [facility] Rx#: [id number] Heparin Sod,Pork in 0.45% 7.255 2.524 0.599 NaCl 25,000 unit In 0.45 % NaCl 1 500ml.bag @ 20 mls/hr IV .Q24H [facility] Rx#: [id number] Blood Product 310 Rc As-1 Unit 310 [id number] Output: Urine 660 352 595 Other: Voiding Method Indwelling Catheter Indwelling Catheter Indwelling Catheter ABP, PAP, CO, CI - Last Documented Arterial Blood Pressure 124/46 - Exam GENERAL: The patient is alert and oriented x3, not in any acute distress. Well developed, well nourished. HEENT: Pupils are round and equally reacting to light. EOMI. No scleral icterus. No conjunctival pallor. Normocephalic, atraumatic. No pharyngeal erythema. No thyromegaly. CARDIOVASCULAR: S1 and S2 present. No murmurs, rubs, or gallops. PULMONARY: Chest is clear to auscultation, no wheezing or crackles. ABDOMEN: Soft, nontender, nondistended, normoactive bowel sounds. No palpable organomegaly. MUSCULOSKELETAL: No joint swelling or deformity. EXTREMITIES: No cyanosis, clubbing, or pedal edema. NEUROLOGICAL: Gross neurological examination did not reveal any focal deficits. SKIN: No rashes. - Labs CBC & Chem 7: 09/01/18 13:10 09/01/18 13:10 Labs: Abnormal Lab Results - Last 24 Hours (Table) 08/31/18 08/31/18 08/31/18 Range/Units 17:06 20:45 20:47 WBC (3.8-10.6) k/uL RBC (3.80-5.40) m/uL Hgb (11.4-16.0) gm/dL Hct (34.0-46.0) % MCH (25.0-35.0) pg MCHC (31.0-37.0) g/dL RDW (11.5-15.5) % APTT 51.8 H (22.0-30.0) sec Sodium (137-145) mmol/L Chloride (98-107) mmol/L Carbon Dioxide (22-30) mmol/L BUN (7-17) mg/dL Creatinine (0.52-1.04) mg/dL POC Glucose (mg/dL) 137 H 153 H (75-99) mg/dL AST (14-36) U/L Total Protein (6.3-8.2) g/dL Albumin (3.5-5.0) g/dL Crossmatch 09/01/18 09/01/18 09/01/18 Range/Units 04:04 04:04 04:04 WBC 19.8 H (3.8-10.6) k/uL RBC 2.58 L (3.80-5.40) m/uL Hgb 6.4 L* (11.4-16.0) gm/dL Hct 21.3 L (34.0-46.0) % MCH 24.8 L (25.0-35.0) pg MCHC 30.0 L (31.0-37.0) g/dL RDW 18.3 H (11.5-15.5) % APTT 52.1 H (22.0-30.0) sec Sodium 132 L (137-145) mmol/L Chloride 90 L (98-107) mmol/L Carbon Dioxide 34 H (22-30) mmol/L BUN 48 H (7-17) mg/dL Creatinine 1.89 H (0.52-1.04) mg/dL POC Glucose (mg/dL) (75-99) mg/dL AST 96 H (14-36) U/L Total Protein 5.9 L (6.3-8.2) g/dL Albumin 2.7 L (3.5-5.0) g/dL Crossmatch 09/01/18 09/01/18 09/01/18 Range/Units 07:14 07:37 07:45 WBC (3.8-10.6) k/uL RBC (3.80-5.40) m/uL Hgb (11.4-16.0) gm/dL Hct (34.0-46.0) % MCH (25.0-35.0) pg MCHC (31.0-37.0) g/dL RDW (11.5-15.5) % APTT (22.0-30.0) sec Sodium (137-145) mmol/L Chloride (98-107) mmol/L Carbon Dioxide (22-30) mmol/L BUN (7-17) mg/dL Creatinine (0.52-1.04) mg/dL POC Glucose (mg/dL) 108 H 101 H (75-99) mg/dL AST (14-36) U/L Total Protein (6.3-8.2) g/dL Albumin (3.5-5.0) g/dL Crossmatch See Detail 09/01/18 09/01/18 Range/Units 12:19 13:10 WBC 18.4 H (3.8-10.6) k/uL RBC 2.88 L (3.80-5.40) m/uL Hgb 7.3 L (11.4-16.0) gm/dL Hct 24.1 L (34.0-46.0) % MCH (25.0-35.0) pg MCHC 30.2 L (31.0-37.0) g/dL RDW 18.6 H (11.5-15.5) % APTT (22.0-30.0) sec Sodium (137-145) mmol/L Chloride (98-107) mmol/L Carbon Dioxide (22-30) mmol/L BUN (7-17) mg/dL Creatinine (0.52-1.04) mg/dL POC Glucose (mg/dL) 140 H (75-99) mg/dL AST (14-36) U/L Total Protein (6.3-8.2) g/dL Albumin (3.5-5.0) g/dL Crossmatch Assessment and Plan Plan: Acute hypoxic respiratory failure, secondary to acute pulmonary edema. Present on admission, patient was intubated on admission. Presently on aspirin cannula oxygen acute CHF ,systolic status post extuation on 08/30/18 atrial fibrillation's with rapid ventricular rate Acute on chronic diastolic congestive heart failure Ischemic stroke in the left middle cerebral artery with residual right sided hemiplegia and dysarthria. Recent aspiration pneumonia of the right lower lobe, on Augmentin Recent right ankle fractures with medial my last and fibular fracture secondary to fall, been managed with a brace; nonsurgical management Vascular dementia 2 diabetes mellitus and GERD Hyperlipidemia Gestational hypertension Degenerative joint disease Chronic kidney disease stage 4 Chronic low back pain Chronic urine incontinence Generalized anxiety disorder Moderate mitral and tricuspid regurgitation, nontraumatic secondary pulmonary hypertension
[2018-09-01 20:58] LABS: Glucose,Whole Blood 134 mg/dL (75-99)
[2018-09-01] MEDS: ATORVASTATIN 40 MG TAB PO SCH (21:14)
[2018-09-01] MEDS: INSULIN DETEMIR 100 UNIT/ML 10 ML VIAL SQ SCH (21:14)
[2018-09-01] MEDS: SODIUM CHLORIDE 0.9% 1,000 ML IV SCH (23:10)
[2018-09-02] MEDS: IPRATROPIUM-ALBUTEROL 3 ML NEB INHALATION SCH ×5 (03:25→20:01)
[2018-09-02 05:38] LABS: Anisocytosis Slight; Basophils % (A) 0 %; Eosinophils # (A) 0.2 k/uL (0-0.7); Eosinophils % (A) 1 %; HCT 23.7 % (34.0-46.0); HGB 7.1 gm/dL (11.4-16.0); Hypochromasia Marked; Lymphocytes # (A) 1.5 k/uL (1.0-4.8); Lymphocytes % (A) 11 %; MCH 25.2 pg (25.0-35.0); MCHC 29.8 g/dL (31.0-37.0); MCV 84.5 fL (80.0-100.0); Monocytes # (A) 1.5 k/uL (0-1.0); Monocytes % (A) 11 %; Neutrophils # (A) 10.1 k/uL (1.3-7.7); Neutrophils % (A) 73 %; Platelet Count 304 k/uL (150-450); Poikilocytosis Moderate; RBC 2.81 m/uL (3.80-5.40); RDW 18.5 % (11.5-15.5); WBC 13.8 k/uL (3.8-10.6)
[2018-09-02 05:59] LABS: Albumin 2.6 g/dL (3.5-5.0); Calcium 8.1 mg/dL (8.4-10.2); Phosphorus 4.1 mg/dL (2.5-4.5); Total Bilirubin 0.7 mg/dL (0.2-1.3); Total Protein 5.8 g/dL (6.3-8.2)
[2018-09-02 06:02] LABS: Potassium 3.9 mmol/L (3.5-5.1)
[2018-09-02 06:03] LABS: Magnesium 2.3 mg/dL (1.6-2.3)
[2018-09-02] MEDS: POTASSIUM CHLORIDE 10 MEQ in WATER FOR INJECTION 1 100ML.BAG IVPB SCH ×2 (06:59→09:14)
[2018-09-02] MEDS: HEPARIN SOD,PORK IN 0.45% NACL 25,000 UNIT in 0.45% NACL 1 500ML.BAG IV SCH (06:59)
[2018-09-02 07:35] LABS: Glucose,Whole Blood 81 mg/dL (75-99)
--- NOTE | 2018-09-02 07:38 | P.PN ---
Subjective Progress Note Date: 09/02/18 Principal diagnosis: Acute hypoxic respiratory failure This is a pleasant 73-year-old female patient with known history of coronary artery disease and status post CABG, chronic obstructive pulmonary disease, chronic kidney disease, paroxysmal atrial fibrillation, and history of stroke, was admitted to the intensive care unit with congestive heart failure secondary to diastole dysfunction as well as COPD exacerbation. She underwent an echocardiogram and that revealed mildly impaired LV function with EF of 45%, moderate MR, moderate TR, and severe pulmonary hypertension. The cardiac enzymes are slightly elevated. On follow-up with the patient today, September 022017, she is doing definitely better. She seems resting comfortably in the bed. Hemodynamically she continues to be in sinus rhythm. The blood pressure seems to be under good control. She continues to be on amiodarone by mouth and metoprolol by mouth. I did stop the heparin because of the anemia. The hemoglobin this morning is 7.1. She was switched from Lasix drip Lasix IV 2 days ago. Her creatinine is slightly worse today. She underwent a chest x-ray which will follow-up with. Overall she is doing better. Objective - Vital Signs Vital signs: Vital Signs Temp 98 F 09/02/18 04:00 Pulse 73 09/02/18 07:00 Resp 16 09/02/18 07:00 BP 152/58 09/02/18 07:00 Pulse Ox 95 09/02/18 07:00 Intake & Output 09/01/18 09/02/18 09/02/18 18:59 06:59 18:59 Intake Total 613.599 285 23 Output Total 770 670 75 Balance -156.401 -385 -52 Weight 91.4 kg 96.8 kg Intake: IV 303 285 23 .9 pressure bags 63 45 3 Sodium Chloride 0.9% 1, 240 240 20 000 ml @ 20 mls/hr IV . Q24H [facility] Rx#:[id number] Intake, IV Titration 0.599 Amount Heparin Sod,Pork in 0.45% 0.599 NaCl 25,000 unit In 0.45 % NaCl 1 500ml.bag @ 20 mls/hr IV .Q24H [facility] Rx#: [id number] Blood Product 310 Rc As-1 Unit 310 [id number] Output: Urine 770 670 75 Other: Voiding Method Indwelling Catheter Indwelling Catheter ABP, PAP, CO, CI - Last Documented Arterial Blood Pressure 90/76 - Constitutional General appearance: Present: no acute distress - Respiratory Respiratory: bilateral: CTA - Cardiovascular Rhythm: regular Heart sounds: normal: S1, S2 Abnormal Heart Sounds: Present: systolic murmur - Labs CBC & Chem 7: 09/02/18 05:04 09/02/18 05:04 Labs: Abnormal Lab Results - Last 24 Hours (Table) 09/01/18 09/01/18 09/01/18 Range/Units 07:37 07:45 12:19 WBC (3.8-10.6) k/uL RBC (3.80-5.40) m/uL Hgb (11.4-16.0) gm/dL Hct (34.0-46.0) % MCHC (31.0-37.0) g/dL RDW (11.5-15.5) % Neutrophils # (1.3-7.7) k/uL Monocytes # (0-1.0) k/uL Sodium (137-145) mmol/L Chloride (98-107) mmol/L Carbon Dioxide (22-30) mmol/L BUN (7-17) mg/dL Creatinine (0.52-1.04) mg/dL POC Glucose (mg/dL) 101 H 140 H (75-99) mg/dL Calcium (8.4-10.2) mg/dL AST (14-36) U/L Total Protein (6.3-8.2) g/dL Albumin (3.5-5.0) g/dL Crossmatch See Detail 09/01/18 09/01/18 09/02/18 Range/Units 13:10 20:45 05:04 WBC 18.4 H 13.8 H (3.8-10.6) k/uL RBC 2.88 L 2.81 L (3.80-5.40) m/uL Hgb 7.3 L 7.1 L (11.4-16.0) gm/dL Hct 24.1 L 23.7 L (34.0-46.0) % MCHC 30.2 L 29.8 L (31.0-37.0) g/dL RDW 18.6 H 18.5 H (11.5-15.5) % Neutrophils # 10.1 H (1.3-7.7) k/uL Monocytes # 1.5 H (0-1.0) k/uL Sodium (137-145) mmol/L Chloride (98-107) mmol/L Carbon Dioxide (22-30) mmol/L BUN (7-17) mg/dL Creatinine (0.52-1.04) mg/dL POC Glucose (mg/dL) 134 H (75-99) mg/dL Calcium (8.4-10.2) mg/dL AST (14-36) U/L Total Protein (6.3-8.2) g/dL Albumin (3.5-5.0) g/dL Crossmatch 09/02/18 Range/Units 05:04 WBC (3.8-10.6) k/uL RBC (3.80-5.40) m/uL Hgb (11.4-16.0) gm/dL Hct (34.0-46.0) % MCHC (31.0-37.0) g/dL RDW (11.5-15.5) % Neutrophils # (1.3-7.7) k/uL Monocytes # (0-1.0) k/uL Sodium 133 L (137-145) mmol/L Chloride 93 L (98-107) mmol/L Carbon Dioxide 33 H (22-30) mmol/L BUN 52 H (7-17) mg/dL Creatinine 1.99 H (0.52-1.04) mg/dL POC Glucose (mg/dL) (75-99) mg/dL Calcium 8.1 L (8.4-10.2) mg/dL AST 69 H (14-36) U/L Total Protein 5.8 L (6.3-8.2) g/dL Albumin 2.6 L (3.5-5.0) g/dL Crossmatch Assessment and Plan Assessment: Assessment #1 congestive heart failure exacerbation secondary to diastolic dysfunction, acute on chronic #2 acute exacerbation of COPD #3 severe pulmonary hypertension #4 paroxysmal atrial fibrillation #5 coronary artery disease and status post CABG #6 chest discomfort #7 multiple comorbid conditions Plan #1 continue the current medical regimen including the metoprolol by mouth and amiodarone by mouth #2 continue IV Lasix. #3 follow-up on the chest x-ray #4 continue holding any anticoagulation #5 continue monitoring the kidney function and electrolytes
--- NOTE | 2018-09-02 09:02 | XR ---
EXAMINATION TYPE: XR chest 1V portable DATE OF EXAM: 09/02/2018 COMPARISON: 09/01/2018 HISTORY: Difficulty breathing TECHNIQUE: Single frontal view of the chest is obtained. FINDINGS: Postoperative change and central line noted. Soft tissue ossifications adjacent left humer al head with arthropathy. Bilateral consolidation and pleural effusion stable. Central line stable. N o pneumothorax. IMPRESSION: 1. Findings are stable correlate for CHF versus diffuse pneumonia.
[2018-09-02] MEDS: PANTOPRAZOLE 40 MG TABLET PO SCH ×2 (09:14→17:44)
[2018-09-02] MEDS: ALLOPURINOL 100 MG TAB PO SCH (09:14)
[2018-09-02] MEDS: ONDANSETRON 4 MG TAB PO SCH ×3 (09:14→17:44)
[2018-09-02] MEDS: ISOSORBIDE MONONITRATE ER 30 MG TAB.ER.24H PO SCH (09:14)
[2018-09-02] MEDS: FUROSEMIDE 10 MG/ML 4 ML VIAL IV SCH ×2 (09:14→17:44)
[2018-09-02] MEDS: cloNIDine HCL 0.1 MG TAB PO SCH ×3 (09:14→20:59)
[2018-09-02] MEDS: CLOPIDOGREL 75 MG TAB PO SCH (09:14)
[2018-09-02] MEDS: METOPROLOL TARTRATE 25 MG TAB PO SCH ×2 (09:14→20:58)
[2018-09-02] MEDS: INSULIN ASPART 100 UNIT/ML 1 ML 10 ML VIAL SQ SCH ×4 (09:15→20:58)
[2018-09-02] MEDS: CYANOCOBALAMIN-FA-PYRIDOXINE 1 EACH TAB PO SCH (09:18)
[2018-09-02] MEDS: AMIODARONE 200 MG TAB PO SCH ×2 (09:18→20:58)
[2018-09-02] MEDS: PARoxetine 10 MG TAB PO SCH (09:19)
[2018-09-02] MEDS: METOLAZONE 2.5 MG TAB PO SCH (09:19)
--- NOTE | 2018-09-02 11:16 | P.PN ---
Subjective Progress Note Date: 09/02/18 On 09/02/2018, I'm seeing this patient for a follow-up in regards to her congestion heart failure. As mentioned earlier, the patient presented with acute hypoxic respiratory failure requiring intubation mechanical ventilation secondary to pulmonary edema. She has been extubated 3 days ago. She required initially BiPAP and currently she is been down to oxygen by nasal cannula and she is down to 3 L of oxygen by nasal cannula. Yesterday Zaroxolyn was added to Lasix and currently she is receiving Lasix 40 mg IV push every 8 hours and Zaroxolyn 2.5 mg by mouth daily. She is trying to diabetes further. Her cardiac rhythm is sinus. She was on amiodarone maintenance in a pulmonary effusion currently she is on a oral amiodarone. Her cardiac rhythm is sinus. Hemoglobin was 6.4 and the patient received a unit of packed RBC. Denies having any chest pain. No altered mentation. She is slow in answering questions. She has chronic pain in the right lower extremity as the patient has a fracture in the involved limb. The patient also has previous history of CVA with some right-sided weakness. Other comorbidities include CHF with impaired left ventricular ejection fraction of 30%, severe pulmonary hypertension, CVA, COPD, diabetes mellitus, multi-infarct dementia, hypertension and addition to stage III chronic kidney disease, anxiety, acid reflux, hyperlipidemia and obviously a right ankle fracture. Her blood pressures good control and the patient is currently off the claviprex infusion. Objective - Vital Signs Vital signs: Vital Signs Temp 98.4 F 09/02/18 08:00 Pulse 80 09/02/18 09:00 Resp 19 09/02/18 09:00 BP 160/57 09/02/18 09:00 Pulse Ox 94 L 09/02/18 09:00 Intake & Output 09/01/18 09/02/18 09/02/18 18:59 06:59 18:59 Intake Total 613.599 285 23 Output Total 770 670 75 Balance -156.401 -385 -52 Weight 91.4 kg 96.8 kg 96.8 kg Intake: IV 303 285 23 .9 pressure bags 63 45 3 Sodium Chloride 0.9% 1, 240 240 20 000 ml @ 20 mls/hr IV . Q24H [facility] Rx#:[id number] Intake, IV Titration 0.599 Amount Heparin Sod,Pork in 0.45% 0.599 NaCl 25,000 unit In 0.45 % NaCl 1 500ml.bag @ 20 mls/hr IV .Q24H [facility] Rx#: [id number] Blood Product 310 Rc As-1 Unit 310 [id number] Output: Urine 770 670 75 Other: Voiding Method Indwelling Catheter Indwelling Catheter ABP, PAP, CO, CI - Last Documented Arterial Blood Pressure 90/76 - Exam No acute distress, awake and alert, with nasal O2 in place. She looks relatively comfortable. HEENT examination is grossly unremarkable. Mucous membranes are moist. Neck supple. Full range of motion. No adenopathy thyromegaly or neck vein distention. Cardiovascular examination reveals regular rhythm rate. S1-S2 normal. No S3 or S4. No discernible murmur noted. Heart sounds are distant. Heart rate is 83 bpm Lungs reveal coarse bilateral crackles and rhonchi. Breath sounds are diminished throughout. Breath sounds are equal bilaterally. No wheezes. Breath sounds are slightly improved. The patient also is dullness in lower extremities bilaterally consistent with bilateral pleural effusion. Abdomen soft and bowel sounds are heard. No masses or tenderness. Extremities are intact. No cyanosis clubbing or edema. The patient is wearing a boot in the right lower extremity. Adequate pulses in lower extremities bilaterally. No cyanosis. No clubbing. The patient is awaiting an immobilizing boot regarding the ankle fracture. Skin is without rash or lesion.Examination of the skin revealed no evidence of significant rashes, suspicious appearing nevi or other concerning lesions. Neurologic examination is nonfocal. She does move all 4 extremities, right side is weak compared to the left. The previous CVA. - Labs CBC & Chem 7: 09/02/18 05:04 09/02/18 05:04 Labs: Abnormal Lab Results - Last 24 Hours (Table) 09/01/18 09/01/18 09/01/18 Range/Units 07:45 12:19 13:10 WBC 18.4 H (3.8-10.6) k/uL RBC 2.88 L (3.80-5.40) m/uL Hgb 7.3 L (11.4-16.0) gm/dL Hct 24.1 L (34.0-46.0) % MCHC 30.2 L (31.0-37.0) g/dL RDW 18.6 H (11.5-15.5) % Neutrophils # (1.3-7.7) k/uL Monocytes # (0-1.0) k/uL Sodium (137-145) mmol/L Chloride (98-107) mmol/L Carbon Dioxide (22-30) mmol/L BUN (7-17) mg/dL Creatinine (0.52-1.04) mg/dL POC Glucose (mg/dL) 140 H (75-99) mg/dL Calcium (8.4-10.2) mg/dL AST (14-36) U/L Total Protein (6.3-8.2) g/dL Albumin (3.5-5.0) g/dL Crossmatch See Detail 09/01/18 09/02/18 09/02/18 Range/Units 20:45 05:04 05:04 WBC 13.8 H (3.8-10.6) k/uL RBC 2.81 L (3.80-5.40) m/uL Hgb 7.1 L (11.4-16.0) gm/dL Hct 23.7 L (34.0-46.0) % MCHC 29.8 L (31.0-37.0) g/dL RDW 18.5 H (11.5-15.5) % Neutrophils # 10.1 H (1.3-7.7) k/uL Monocytes # 1.5 H (0-1.0) k/uL Sodium 133 L (137-145) mmol/L Chloride 93 L (98-107) mmol/L Carbon Dioxide 33 H (22-30) mmol/L BUN 52 H (7-17) mg/dL Creatinine 1.99 H (0.52-1.04) mg/dL POC Glucose (mg/dL) 134 H (75-99) mg/dL Calcium 8.1 L (8.4-10.2) mg/dL AST 69 H (14-36) U/L Total Protein 5.8 L (6.3-8.2) g/dL Albumin 2.6 L (3.5-5.0) g/dL Crossmatch Assessment and Plan Plan: Assessment 1 Acute hypoxemic respiratory failure, secondary to CHF/pulmonary edema and complicated by atrial fibrillation/RVR in a patient with an echocardiogram showing ejection fraction of 30-35%, requiring intubation and mechanical ventilation on August 26. The patient remains extubated for now and she's been extubated on 08/30/2018. The patient however continues to have some CHF findings on her chest x-ray and bilateral pleural effusions right more than left. 2 acute hypoxic respiratory failure, requiring intubation mechanical ventilation , Status post extubation from mechanical ventilation on August 30 3 CHF with systolic heart failure, chronic in addition to Severe pulmonary hypertension by echocardiogram. 4 bilateral pleural effusions 5 Metabolic alkalosis, secondary to hypokalemia and volume contraction 6 History of CVA involving the left middle cerebral artery with minimal residual right-sided weakness 7 Type 2 diabetes 8 COPD 9 Multi-infarct dementia 10 Benign essential hypertension 11 Stage III chronic kidney disease 12 Generalized anxiety disorder 13 GERD 14 Hyperlipidemia 15 History of recent ankle fracture MAR[facility]N Switch this patient from Lovenox to heparin subcu. Continue Lasix. Continue Zaroxolyn. Monitor urine output. Monitor fluid balance. Monitor renal function. Cardiac rhythm is sinus. Continue oral amiodarone. Continue metoprolol 25 mg by mouth twice a day. Continue blood sugar control. Discussed the possibility of performing a thoracentesis for therapeutic purposes and this will also help us cutting out her diuretics earlier. We'll proceed with thoracentesis of the patient is agreeable and technically feasible as the patient has CVA and difficulty with mobility and right-sided weakness in addition to a right ankle fracture. We'll continue to follow. She'll be kept in ICU for now.
[2018-09-02 12:25] LABS: Glucose,Whole Blood 92 mg/dL (75-99)
[2018-09-02 17:18] LABS: Glucose,Whole Blood 108 mg/dL (75-99)
[2018-09-02] MEDS: SODIUM CHLORIDE 0.9% 1,000 ML IV SCH (17:44)
[2018-09-02] MEDS: BISACODYL 10 MG SUPP RECTAL PRN (19:53)
[2018-09-02] MEDS ORDERED: IPRATROPIUM-ALBUTEROL 3 ML NEB INHALATION PRN (20:05)
[2018-09-02] MEDS: ATORVASTATIN 40 MG TAB PO SCH (20:58)
[2018-09-02] MEDS: INSULIN DETEMIR 100 UNIT/ML 10 ML VIAL SQ SCH (20:58)
[2018-09-02 21:06] LABS: Glucose,Whole Blood 189 mg/dL (75-99)
--- NOTE | 2018-09-02 21:46 | PN ---
PROGRESS NOTE DATE OF SERVICE: September 02, 2018. PRESENTING COMPLAINT: Short of breath. INTERVAL HISTORY: This is a patient with prior stroke who was bed-bound, presented with acute pulmonary edema. The patient on August 26, 2018 was intubated and was extubated on August 30, 2018. The patient was on IV Lasix. Switched over to p.o. Lasix. I saw this patient this afternoon. Dr. Wisdom was planning to do thoracentesis. The patient has otherwise been tolerating a diet. Breathing is better. REVIEW OF SYSTEMS: Done for constitutional, cardiovascular, GI, pulmonary and relevant findings as above. CURRENT MEDICATIONS: Reviewed that include DuoNeb, p.o. Cordarone p.o. Catapres, Lasix IV 40 q.8, p.o. Zaroxolyn. PHYSICAL EXAMINATION: VITAL SIGNS: Temperature 98.2, pulse 59, respiration 15, blood pressure 118/43, pulse ox 100 percent on 3 L. GENERAL APPEARANCE: Lying in bed, awake. EYES: Pupils equal. Conjunctivae normal. HEENT: External appearance of nose and ears normal. Oral cavity normal. NECK JVD unable to assess. Mass not palpable. RESPIRATORY effort increased. LUNGS: Decreased breath sounds. CARDIOVASCULAR: Heart sounds irregular. No edema. ABDOMEN: Soft, nontender. Liver and spleen not palpable. PSYCHIATRY: Patient is able answer simple questions. NEUROLOGICAL: Speech is staggered at baseline. Power in the right arm and right leg is 3/5, which is again at baseline. The patient also got a right lower extremity brace. INVESTIGATIONS: White count 13.8, hemoglobin 7.1, potassium 3.9, BUN 52, creatinine 1.99. ASSESSMENT: 1. Acute flash pulmonary edema causing acute hypoxic respiratory failure requiring ventilator support from diastolic dysfunction. EF 55%. 2. Atrial fibrillation with rapid ventricular rate somewhat better controlled. 3. Recent right ankle fracture with medial malleolus and fibula fracture secondary to fall, being managed with a brace, nonsurgical. 4. Recent acute ischemic stroke in the left middle cerebral artery in a right-handed patient with residual right-sided weakness and dysarthria from recent admission. 5. Coronary artery disease with history of coronary bypass. 6. Chronic obstructive pulmonary disease in an ex-smoker. 7. Multi-infarct dementia causing moderate cognitive impairment. 8. Diabetes mellitus type 2, chronically on insulin. 9. Gastroesophageal reflux disease. 10.Hyperlipidemia. 11.Primary osteoarthritis. 12.Chronic kidney stage 3 from nephrosclerosis. 13.Chronic low back pain from sciatica. 14.Chronic urine incontinence. 15.Generalized anxiety disorder not otherwise specified. 16.Moderate mitral and tricuspid regurgitation, nonrheumatic. 17.Severe secondary pulmonary hypertension. 18.Acute pleural effusion from congestive heart failure, pending thoracentesis. 19.Acute renal failure from diuresis. PLAN: Continue current medication and treatment plan. Patient is still on IV Lasix as per Cardiology. Overall prognosis is guarded. No family is currently present. We will repeat electrolytes tomorrow. Follow. MMODL / IJN: [id number] /
[2018-09-03] MEDS: FUROSEMIDE 10 MG/ML 4 ML VIAL IV SCH (00:55)
[2018-09-03 05:17] LABS: Anisocytosis Slight; Basophils % (A) 0 %; Eosinophils # (A) 0.1 k/uL (0-0.7); Eosinophils % (A) 1 %; HCT 26.2 % (34.0-46.0); HGB 7.8 gm/dL (11.4-16.0); Hypochromasia Marked; Lymphocytes # (A) 1.4 k/uL (1.0-4.8); Lymphocytes % (A) 9 %; MCH 25.4 pg (25.0-35.0); MCHC 29.6 g/dL (31.0-37.0); MCV 85.9 fL (80.0-100.0); Mean Platelet Volume 7.7; Monocytes # (A) 1.9 k/uL (0-1.0); Monocytes % (A) 13 %; Neutrophils # (A) 11.3 k/uL (1.3-7.7); Neutrophils % (A) 74 %; Platelet Count 313 k/uL (150-450); Poikilocytosis Moderate; RBC 3.05 m/uL (3.80-5.40); RDW 18.6 % (11.5-15.5); WBC 15.3 k/uL (3.8-10.6)
[2018-09-03 05:18] LABS: Albumin 2.7 g/dL (3.5-5.0); Calcium 8.5 mg/dL (8.4-10.2); Magnesium 2.2 mg/dL (1.6-2.3); Potassium 3.7 mmol/L (3.5-5.1); Total Bilirubin 0.6 mg/dL (0.2-1.3); Total Protein 5.8 g/dL (6.3-8.2)
[2018-09-03] MEDS: POTASSIUM CHLORIDE 10 MEQ in WATER FOR INJECTION 1 100ML.BAG IVPB SCH ×2 (06:03→08:45)
[2018-09-03] MEDS ORDERED: FUROSEMIDE 10 MG/ML 4 ML VIAL ONE (07:27)
--- NOTE | 2018-09-03 07:27 | P.PN ---
Subjective Progress Note Date: 09/03/18 Principal diagnosis: Acute hypoxic respiratory failure This is a pleasant 73-year-old female patient with known history of coronary artery disease and status post CABG, chronic obstructive pulmonary disease, chronic kidney disease, paroxysmal atrial fibrillation, and history of stroke, was admitted to the intensive care unit with congestive heart failure secondary to diastole dysfunction as well as COPD exacerbation. She underwent an echocardiogram and that revealed mildly impaired LV function with EF of 45%, moderate MR, moderate TR, and severe pulmonary hypertension. The cardiac enzymes are slightly elevated. On follow-up with the patient today, 09/03/2018, she seems to be resting comfortably in bed. Hemodynamically she continues to be stable. The urine output has been poor. I did review the chest x-ray from today which is definitely looks worse and the patient start having the right pleural effusion. I am going to increase the Lasix to 80 mg IV twice a day. The hemoglobin this morning is 7.8. The creatinine is 2.07. Objective - Vital Signs Vital signs: Vital Signs Temp 98.6 F 09/03/18 04:00 Pulse 58 L 09/03/18 07:00 Resp 14 09/03/18 07:00 BP 140/52 09/03/18 07:00 Pulse Ox 99 09/03/18 07:00 Intake & Output 09/02/18 09/03/18 09/03/18 18:59 06:59 18:59 Intake Total 612 276 123 Output Total 1275 1030 75 Balance -663 -754 48 Weight 96.8 kg 93 kg Intake: IV 376 276 123 .9 pressure bags 36 36 3 Potassium Chloride 10 meq 100 100 In Water For Injection 1 100ml.bag @ 100 mls/hr IVPB Q1H [facility] Rx#: [id number] Sodium Chloride 0.9% 1, 240 240 20 000 ml @ 20 mls/hr IV . Q24H [facility] Rx#:[id number] Oral 236 Output: Urine 1275 1030 75 Other: Voiding Method Indwelling Catheter Indwelling Catheter # Voids 1 ABP, PAP, CO, CI - Last Documented Arterial Blood Pressure 90/76 - Constitutional General appearance: Present: no acute distress - Respiratory Respiratory: bilateral: diminished - Cardiovascular Rhythm: regular Heart sounds: normal: S1, S2 - Labs CBC & Chem 7: 09/03/18 04:21 09/03/18 04:21 Labs: Abnormal Lab Results - Last 24 Hours (Table) 09/02/18 09/02/18 09/03/18 Range/Units 17:06 20:55 04:21 WBC 15.3 H (3.8-10.6) k/uL RBC 3.05 L (3.80-5.40) m/uL Hgb 7.8 L (11.4-16.0) gm/dL Hct 26.2 L (34.0-46.0) % MCHC 29.6 L (31.0-37.0) g/dL RDW 18.6 H (11.5-15.5) % Neutrophils # 11.3 H (1.3-7.7) k/uL Monocytes # 1.9 H (0-1.0) k/uL Sodium (137-145) mmol/L Chloride (98-107) mmol/L Carbon Dioxide (22-30) mmol/L BUN (7-17) mg/dL Creatinine (0.52-1.04) mg/dL POC Glucose (mg/dL) 108 H 189 H (75-99) mg/dL AST (14-36) U/L Total Protein (6.3-8.2) g/dL Albumin (3.5-5.0) g/dL 09/03/18 Range/Units 04:21 WBC (3.8-10.6) k/uL RBC (3.80-5.40) m/uL Hgb (11.4-16.0) gm/dL Hct (34.0-46.0) % MCHC (31.0-37.0) g/dL RDW (11.5-15.5) % Neutrophils # (1.3-7.7) k/uL Monocytes # (0-1.0) k/uL Sodium 132 L (137-145) mmol/L Chloride 92 L (98-107) mmol/L Carbon Dioxide 33 H (22-30) mmol/L BUN 56 H (7-17) mg/dL Creatinine 2.07 H (0.52-1.04) mg/dL POC Glucose (mg/dL) (75-99) mg/dL AST 63 H (14-36) U/L Total Protein 5.8 L (6.3-8.2) g/dL Albumin 2.7 L (3.5-5.0) g/dL Assessment and Plan Assessment: Assessment #1 congestive heart failure exacerbation secondary to diastolic dysfunction, acute on chronic #2 acute exacerbation of COPD #3 severe pulmonary hypertension #4 paroxysmal atrial fibrillation #5 coronary artery disease and status post CABG #6 chest discomfort #7 multiple comorbid conditions Plan #1 continue the current medical regimen including the metoprolol by mouth and amiodarone by mouth #2 increase the dose of Lasix IV to 80 twice a day #3 the chest x-ray was reviewed and did show bilateral pleural effusion worse on the right side #4 continue holding any anticoagulation #5 continue monitoring the kidney function and electrolytes
[2018-09-03 07:44] LABS: Glucose,Whole Blood 78 mg/dL (75-99)
[2018-09-03] MEDS: IPRATROPIUM-ALBUTEROL 3 ML NEB INHALATION SCH ×4 (08:08→19:55)
[2018-09-03] MEDS: INSULIN ASPART 100 UNIT/ML 1 ML 10 ML VIAL SQ SCH ×4 (08:41→22:01)
[2018-09-03] MEDS: AMIODARONE 200 MG TAB PO SCH ×2 (08:45→22:01)
[2018-09-03] MEDS: PANTOPRAZOLE 40 MG TABLET PO SCH ×2 (08:45→17:50)
[2018-09-03] MEDS: ALLOPURINOL 100 MG TAB PO SCH (08:45)
[2018-09-03] MEDS: cloNIDine HCL 0.1 MG TAB PO SCH ×3 (08:45→22:02)
[2018-09-03] MEDS: CLOPIDOGREL 75 MG TAB PO SCH (08:45)
[2018-09-03] MEDS: ONDANSETRON 4 MG TAB PO SCH ×3 (08:45→17:50)
[2018-09-03] MEDS: PARoxetine 10 MG TAB PO SCH (08:46)
[2018-09-03] MEDS: CYANOCOBALAMIN-FA-PYRIDOXINE 1 EACH TAB PO SCH (08:46)
[2018-09-03] MEDS: METOLAZONE 2.5 MG TAB PO SCH (08:46)
[2018-09-03] MEDS: METOPROLOL TARTRATE 25 MG TAB PO SCH ×2 (08:48→22:02)
[2018-09-03] MEDS: ISOSORBIDE MONONITRATE ER 30 MG TAB.ER.24H PO SCH (08:48)
[2018-09-03] MEDS ORDERED: FUROSEMIDE 10 MG/ML 10 ML VIAL IV SCH (09:00)
--- NOTE | 2018-09-03 09:15 | XR ---
EXAMINATION TYPE: XR chest 1V portable DATE OF EXAM: 09/03/2018 COMPARISON: Prior chest x-ray 09/02/2018 HISTORY: Difficulty breathing TECHNIQUE: Single frontal view of the chest is obtained. FINDINGS: Findings are similar to prior. Left jugular central venous catheter shows the distal tip n ear the cavoatrial junction level. There is no evident pneumothorax. Bibasilar increased density is a gain noted, heart size is stable accounting for differences in technique, patient is post median ster notomy and there are overlying cardiac leads. Central vascularity and interstitium are increased, the re is perihilar vascular indistinctness. 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 IMPRESSION: Findings suggest congestive heart failure with bilateral pleural effusions, follow-up is recommended.
--- NOTE | 2018-09-03 09:45 | P.PN ---
Subjective Progress Note Date: 09/03/18 Principal diagnosis: Acute hypoxic respiratory failure secondary to acute exacerbation of systolic congestive heart failure requiring intubation mechanical ventilatory support. Extubated 08/30/2018. The patient is seen again today 09/03/2018 in follow-up in the intensive care unit. She is awake and alert in no acute distress. She is resting comfortably in bed. She did present with acute hypoxic respiratory failure secondary to an acute exacerbation of systolic congestive heart failure and atrial fibrillation with rapid ventricular response requiring intubation mechanical ventilatory support. She was extubated on 08/30/2018. She is currently maintaining good O2 saturations in the 90s on 3 L/m per nasal cannula. Her chest x-ray continues to show evidence of bilateral pleural effusions. No significant improvement. She remains a negative balance of 450 ML's. She remains on Lasix 80 mg IV push every 12 hours along with Zaroxolyn. White count 15.3. Hemoglobin 7.8. Creatinine 2.07. Objective - Vital Signs Vital signs: Vital Signs Temp 97.8 F 09/03/18 08:00 Pulse 69 09/03/18 09:00 Resp 15 09/03/18 09:00 BP 136/53 09/03/18 09:00 Pulse Ox 96 09/03/18 09:00 Intake & Output 09/02/18 09/03/18 09/03/18 18:59 06:59 18:59 Intake Total 612 276 509 Output Total 1275 1030 525 Balance -663 -754 -16 Weight 96.8 kg 93 kg Intake: IV 376 276 169 .9 pressure bags 36 36 9 Potassium Chloride 10 meq 100 100 In Water For Injection 1 100ml.bag @ 100 mls/hr IVPB Q1H [facility] Rx#: [id number] Sodium Chloride 0.9% 1, 240 240 60 000 ml @ 20 mls/hr IV . Q24H [facility] Rx#:[id number] Intake, IV Titration 100 Amount Potassium Chloride 10 meq 100 In Water For Injection 1 100ml.bag @ 100 mls/hr IVPB Q1H [facility] Rx#: [id number] Oral 236 240 Output: Urine 1275 1030 525 Other: Voiding Method Indwelling Catheter Indwelling Catheter # Voids 1 ABP, PAP, CO, CI - Last Documented Arterial Blood Pressure 90/76 - Exam GENERAL EXAM: Alert, on 3 L/m per nasal cannula, comfortable in no apparent distress. HEAD: Normocephalic. EYES: Normal reaction of pupils, equal size. NOSE: Clear with pink turbinates. THROAT: No erythema or exudates. NECK: No masses, no JVD. CHEST: No chest wall deformity. LUNGS: Equal air entry with crackles in the bilateral posterior bases. CVS: S1 and S2 normal with no audible murmur, regular rhythm. ABDOMEN: No hepatosplenomegaly, normal bowel sounds, no guarding or rigidity. SPINE: No scoliosis or deformity SKIN: No rashes CENTRAL NERVOUS SYSTEM: No focal deficits, tone is normal in all 4 extremities. EXTREMITIES: There is no peripheral edema. No clubbing, no cyanosis. Peripheral pulses are intact. - Labs CBC & Chem 7: 09/03/18 04:21 09/03/18 04:21 Labs: Abnormal Lab Results - Last 24 Hours (Table) 09/02/18 09/02/18 09/03/18 Range/Units 17:06 20:55 04:21 WBC 15.3 H (3.8-10.6) k/uL RBC 3.05 L (3.80-5.40) m/uL Hgb 7.8 L (11.4-16.0) gm/dL Hct 26.2 L (34.0-46.0) % MCHC 29.6 L (31.0-37.0) g/dL RDW 18.6 H (11.5-15.5) % Neutrophils # 11.3 H (1.3-7.7) k/uL Monocytes # 1.9 H (0-1.0) k/uL Sodium (137-145) mmol/L Chloride (98-107) mmol/L Carbon Dioxide (22-30) mmol/L BUN (7-17) mg/dL Creatinine (0.52-1.04) mg/dL POC Glucose (mg/dL) 108 H 189 H (75-99) mg/dL AST (14-36) U/L Total Protein (6.3-8.2) g/dL Albumin (3.5-5.0) g/dL 09/03/18 Range/Units 04:21 WBC (3.8-10.6) k/uL RBC (3.80-5.40) m/uL Hgb (11.4-16.0) gm/dL Hct (34.0-46.0) % MCHC (31.0-37.0) g/dL RDW (11.5-15.5) % Neutrophils # (1.3-7.7) k/uL Monocytes # (0-1.0) k/uL Sodium 132 L (137-145) mmol/L Chloride 92 L (98-107) mmol/L Carbon Dioxide 33 H (22-30) mmol/L BUN 56 H (7-17) mg/dL Creatinine 2.07 H (0.52-1.04) mg/dL POC Glucose (mg/dL) (75-99) mg/dL AST 63 H (14-36) U/L Total Protein 5.8 L (6.3-8.2) g/dL Albumin 2.7 L (3.5-5.0) g/dL Assessment and Plan Plan: Assessment 1 Acute hypoxemic respiratory failure, secondary to CHF/pulmonary edema and complicated by atrial fibrillation/RVR in a patient with an echocardiogram showing ejection fraction of 30-35%, requiring intubation and mechanical ventilation on August 26. The patient remains extubated for now and she's been extubated on 08/30/2018. The patient however continues to have some CHF findings on her chest x-ray and bilateral pleural effusions right more than left. 2 acute hypoxic respiratory failure, requiring intubation mechanical ventilation , Status post extubation from mechanical ventilation on August 30 3 CHF with systolic heart failure, chronic in addition to Severe pulmonary hypertension by echocardiogram. 4 bilateral pleural effusions 5 Metabolic alkalosis, secondary to hypokalemia and volume contraction 6 History of CVA involving the left middle cerebral artery with minimal residual right-sided weakness 7 Type 2 diabetes 8 COPD 9 Multi-infarct dementia 10 Benign essential hypertension 11 Stage III chronic kidney disease 12 Generalized anxiety disorder 13 GERD 14 Hyperlipidemia 15 History of recent ankle fracture Plan: The patient was seen and evaluated by Dr. Wisdom. Chest x-ray and labs were reviewed. We'll continue with her current treatment plan. He will go ahead and perform a thoracentesis today. She may require a thoracentesis on the other side tomorrow. We'll continue to monitor her creatinine level. Continue to monitor I&O. We will increase her activity as tolerated. We'll continue to follow make further recommendations based on her clinical status. I, the cosigning physician, performed a history & physical examination of the patient. Lungs sounds with crackles in the bilateral posterior bases Maintaining good O2 saturations in the 90s on 3 L/m per nasal cannula. I discussed the assessment and plan of care with my nurse practitioner, Aria Brown. I attest to the above note as dictated by her.
--- NOTE | 2018-09-03 10:50 | XR ---
EXAMINATION TYPE: XR chest 1V DATE OF EXAM: 09/03/2018 COMPARISON: Prior chest 09/03/2018 HISTORY: Status post right thoracentesis TECHNIQUE: Single frontal view of the chest is obtained. FINDINGS: There is interval improved visualization of the right lung base. No pneumothorax. Minimal patchy basilar density persists at the right lung base. IMPRESSION: No evident complication status post right thoracentesis.
[2018-09-03 11:12] LABS: Total Protein 5.8 g/dL (6.3-8.2)
[2018-09-03 12:17] LABS: Glucose,Whole Blood 268 mg/dL (75-99)
--- NOTE | 2018-09-03 13:04 | PCN ---
PROCEDURE NOTE PROCEDURE: Thoracentesis. PREOPERATIVE DIAGNOSIS: Bilateral pleural effusion. POSTOPERATIVE DIAGNOSIS: Bilateral pleural effusion. A time-out was completed verifying correct patient, procedure, site, positioning , and implant (s) or special equipment if applicable. Ultrasound guidance was not used and appropriate fluid pocket was identified and marked. Patient was positioned, prepped and draped in usual sterile fashion. Lidocaine was used to anesthetize the area. A Thoracentesis catheter was introduced into the pleural space and fluid was removed. Blood loss was none. A chest x-ray was ordered to evaluate for pneumothorax. Total Fluid Removed: 1.2 L Color of Fluid: Turbid dark yellowish. Patient tolerated the procedure well and there were no complications. MMODL / IJN: [id number] /
[2018-09-03] MEDS: SODIUM CHLORIDE 0.9% 1,000 ML IV SCH (15:13)
[2018-09-03 15:17] LABS: Appearance,BF Clear
[2018-09-03 15:22] LABS: Nucleated Cells, Body Fluid 67 /uL; RBC, Body Fluid 72 /uL
[2018-09-03 15:26] LABS: Mononuclear WBC,Body Fluid 61 %; Polynuclear WBC,Body Fluid 39 %; Total Cells Counted,Body Fluid 100
[2018-09-03] MEDS: ACETAMINOPHEN TAB 500 MG TAB PO PRN (16:10)
[2018-09-03] MEDS: FUROSEMIDE 40 MG TAB PO SCH (16:11)
[2018-09-03 17:14] LABS: Glucose,Whole Blood 132 mg/dL (75-99)
[2018-09-03 17:59] LABS: Glucose,Whole Blood 129 mg/dL (75-99)
[2018-09-03 20:46] LABS: Total Protein, Body Fluid 1287 mg/dL
[2018-09-03 21:21] LABS: Glucose,Whole Blood 182 mg/dL (75-99)
[2018-09-03] MEDS: INSULIN DETEMIR 100 UNIT/ML 10 ML VIAL SQ SCH (22:00)
[2018-09-03] MEDS: ATORVASTATIN 40 MG TAB PO SCH (22:01)
--- NOTE | 2018-09-03 23:52 | PN ---
PROGRESS NOTE DATE OF SERVICE: 09/03/2018 PRESENTING COMPLAINT: Short of breath. INTERVAL HISTORY: This is a patient with a prior stroke who is bed-bound and presented with acute pulmonary edema. She was intubated on August 26 and extubated on August 30. The patient had thoracentesis done today by Dr. Wisdom; 1.2 L was removed. Patient feels better. Breathing is improving. REVIEW OF SYSTEMS: Done for constitutional, cardiovascular, GI, pulmonary; relevant findings as above. CURRENT MEDICATIONS: Reviewed. They include p.o. Lasix that started today. PHYSICAL EXAMINATION: Temperature 97.5, pulse 57, respiration 22, blood pressure 130/49, pulse ox 95% on 2 L. GENERAL APPEARANCE: Lying in bed, comfortable. EYES: Pupils equal. Conjunctivae normal. HEENT: External appearance of nose and ears normal. Oral cavity normal. NECK: JVD unable to assess. Mass not palpable. RESPIRATORY: Effort normal. LUNGS: Decreased breath sounds. CARDIOVASCULAR: Heart sounds irregular. No edema. ABDOMEN: Soft, nontender. Liver and spleen not palpable. PSYCHIATRY: Patient is able to answer simple questions. NEUROLOGICAL: Speech is staggered. Power in the right arm and right leg is 3/5. Patient has a low right lower extremity brace. INVESTIGATIONS: Accu-Cheks are noted. ASSESSMENT: 1. Acute flash pulmonary edema causing acute hypoxic respiratory failure requiring ventilator support from congestive heart failure from diastolic dysfunction, ejection fraction 55%. 2. Atrial fibrillation with rapid ventricular rate, now better controlled, persistent. 3. Recent right ankle fracture with medial malleolus and fibula fracture secondary to fall, being managed with a brace, non-surgical. 4. Recent ischemic stroke in the left middle cerebral artery in a right-handed patient with residual right-sided weakness and dysarthria from recent admission. 5. Coronary artery disease with history of coronary artery bypass. 6. Chronic obstructive pulmonary disease in an ex-smoker. 7. Multi-infarct dementia causing moderate cognitive impairment. 8. Diabetes mellitus, type 2, chronically on insulin. 9. Gastroesophageal reflux disease. 10.Hyperlipidemia. 11.Primary osteoarthritis. 12.Chronic kidney disease, stage III, from nephrosclerosis. 13.Chronic low back pain from sciatica. 14.Chronic urine incontinence. 15.Generalized anxiety disorder not otherwise specified. 16.Moderate mitral and tricuspid regurgitation, non-rheumatic. 17.Severe secondary pulmonary hypertension. 18.Acute pleural effusion from congestive heart failure, status post thoracentesis today with 1.2 L removed. 19.Acute renal failure from diuresis, worsening. PLAN: Continue current medication and treatment plan. Patient will remain on Lasix. Keep a close eye on the patient's renal function. Will follow. MMODL / IJN: [id number] /
[2018-09-04 05:50] LABS: Anisocytosis Slight; Basophils % (A) 0 %; Eosinophils # (A) 0.1 k/uL (0-0.7); Eosinophils % (A) 1 %; HCT 24.4 % (34.0-46.0); HGB 7.3 gm/dL (11.4-16.0); Hypochromasia Marked; Lymphocytes # (A) 1.3 k/uL (1.0-4.8); Lymphocytes % (A) 9 %; MCH 25.9 pg (25.0-35.0); MCHC 30.1 g/dL (31.0-37.0); MCV 86.1 fL (80.0-100.0); Mean Platelet Volume 7.5; Monocytes # (A) 1.6 k/uL (0-1.0); Monocytes % (A) 11 %; Neutrophils # (A) 10.2 k/uL (1.3-7.7); Neutrophils % (A) 75 %; Platelet Count 252 k/uL (150-450); Poikilocytosis Moderate; RBC 2.83 m/uL (3.80-5.40); WBC 13.6 k/uL (3.8-10.6)
[2018-09-04 06:01] LABS: Albumin 2.4 g/dL (3.5-5.0); Calcium 8.3 mg/dL (8.4-10.2); Magnesium 2.1 mg/dL (1.6-2.3); Phosphorus 3.7 mg/dL (2.5-4.5); Potassium 3.5 mmol/L (3.5-5.1); Total Bilirubin 0.3 mg/dL (0.2-1.3); Total Protein 5.5 g/dL (6.3-8.2)
[2018-09-04] MEDS: IPRATROPIUM-ALBUTEROL 3 ML NEB INHALATION SCH ×4 (07:17→19:29)
[2018-09-04 07:43] LABS: Glucose,Whole Blood 93 mg/dL (75-99)
--- NOTE | 2018-09-04 08:02 | P.PN ---
Subjective Progress Note Date: 09/04/18 Principal diagnosis: Acute hypoxic respiratory failure This is a pleasant 73-year-old female patient with known history of coronary artery disease and status post CABG, chronic obstructive pulmonary disease, chronic kidney disease, paroxysmal atrial fibrillation, and history of stroke, was admitted to the intensive care unit with congestive heart failure secondary to diastole dysfunction as well as COPD exacerbation. She underwent an echocardiogram and that revealed mildly impaired LV function with EF of 45%, moderate MR, moderate TR, and severe pulmonary hypertension. The cardiac enzymes are slightly elevated. I'll follow-up with the patient today, 09/04/2018, the patient was laying comfortably in bed. Hemodynamically she continues to be stable. Yesterday I did increase the dose of Lasix but it was decreased because the patient underwent pleurocentesis on the right side and she is going to undergo pleurocentesis on the left side. The hemoglobin and kidney function continues to be stable. Objective - Vital Signs Vital signs: Vital Signs Temp 98.6 F 09/04/18 04:00 Pulse 55 L 09/04/18 07:27 Resp 13 09/04/18 06:00 BP 111/44 09/04/18 06:00 Pulse Ox 97 09/04/18 06:00 Intake & Output 09/03/18 09/04/18 09/04/18 18:59 06:59 18:59 Intake Total 1079 470 Output Total 2395 525 Balance -1316 -55 Weight 92.5 kg Intake: IV 399 230 .9 pressure bags 39 30 Potassium Chloride 10 meq 100 In Water For Injection 1 100ml.bag @ 100 mls/hr IVPB Q1H [facility] Rx#: [id number] Sodium Chloride 0.9% 1, 260 200 000 ml @ 20 mls/hr IV . Q24H [facility] Rx#:[id number] Intake, IV Titration 100 Amount Potassium Chloride 10 meq 100 In Water For Injection 1 100ml.bag @ 100 mls/hr IVPB Q1H [facility] Rx#: [id number] Oral 580 240 Output: Drainage 1150 Right Chest 1150 Urine 1245 525 Other: Voiding Method Indwelling Catheter Indwelling Catheter ABP, PAP, CO, CI - Last Documented Arterial Blood Pressure 90/76 - Constitutional General appearance: Present: no acute distress - Respiratory Respiratory: bilateral: diminished - Cardiovascular Rhythm: regular Heart sounds: normal: S1, S2 - Labs CBC & Chem 7: 09/04/18 04:57 09/04/18 04:57 Labs: Abnormal Lab Results - Last 24 Hours (Table) 09/03/18 09/03/18 09/03/18 Range/Units 04:21 12:07 17:02 WBC (3.8-10.6) k/uL RBC (3.80-5.40) m/uL Hgb (11.4-16.0) gm/dL Hct (34.0-46.0) % MCHC (31.0-37.0) g/dL RDW (11.5-15.5) % Neutrophils # (1.3-7.7) k/uL Monocytes # (0-1.0) k/uL Sodium (137-145) mmol/L Chloride (98-107) mmol/L Carbon Dioxide (22-30) mmol/L BUN (7-17) mg/dL Creatinine (0.52-1.04) mg/dL POC Glucose (mg/dL) 268 H 132 H (75-99) mg/dL Calcium (8.4-10.2) mg/dL AST (14-36) U/L Total Protein 5.8 L (6.3-8.2) g/dL Albumin (3.5-5.0) g/dL 09/03/18 09/03/18 09/04/18 Range/Units 17:47 21:09 04:57 WBC 13.6 H (3.8-10.6) k/uL RBC 2.83 L (3.80-5.40) m/uL Hgb 7.3 L (11.4-16.0) gm/dL Hct 24.4 L (34.0-46.0) % MCHC 30.1 L (31.0-37.0) g/dL RDW 19.0 H (11.5-15.5) % Neutrophils # 10.2 H (1.3-7.7) k/uL Monocytes # 1.6 H (0-1.0) k/uL Sodium (137-145) mmol/L Chloride (98-107) mmol/L Carbon Dioxide (22-30) mmol/L BUN (7-17) mg/dL Creatinine (0.52-1.04) mg/dL POC Glucose (mg/dL) 129 H 182 H (75-99) mg/dL Calcium (8.4-10.2) mg/dL AST (14-36) U/L Total Protein (6.3-8.2) g/dL Albumin (3.5-5.0) g/dL 09/04/18 Range/Units 04:57 WBC (3.8-10.6) k/uL RBC (3.80-5.40) m/uL Hgb (11.4-16.0) gm/dL Hct (34.0-46.0) % MCHC (31.0-37.0) g/dL RDW (11.5-15.5) % Neutrophils # (1.3-7.7) k/uL Monocytes # (0-1.0) k/uL Sodium 133 L (137-145) mmol/L Chloride 91 L (98-107) mmol/L Carbon Dioxide 32 H (22-30) mmol/L BUN 59 H (7-17) mg/dL Creatinine 2.57 H (0.52-1.04) mg/dL POC Glucose (mg/dL) (75-99) mg/dL Calcium 8.3 L (8.4-10.2) mg/dL AST 45 H (14-36) U/L Total Protein 5.5 L (6.3-8.2) g/dL Albumin 2.4 L (3.5-5.0) g/dL Microbiology - Last 24 Hours (Table) 09/03/18 12:30 Gram Stain - Preliminary Pleural Fluid Body Fluid Culture - Preliminary Assessment and Plan Assessment: Assessment #1 congestive heart failure exacerbation secondary to diastolic dysfunction, acute on chronic #2 acute exacerbation of COPD #3 severe pulmonary hypertension #4 paroxysmal atrial fibrillation #5 coronary artery disease and status post CABG #6 chest discomfort #7 multiple comorbid conditions Plan #1 continue the current medical regimen including the metoprolol by mouth and amiodarone by mouth #2 continue the current dose of Lasix #3 the chest x-ray was reviewed and did show bilateral pleural effusion worse on the right side #4 continue holding any anticoagulation #5 continue monitoring the kidney function and electrolytes
[2018-09-04] MEDS: INSULIN ASPART 100 UNIT/ML 1 ML 10 ML VIAL SQ SCH ×4 (08:35→22:29)
[2018-09-04] MEDS: CLOPIDOGREL 75 MG TAB PO SCH (08:39)
[2018-09-04] MEDS: METOPROLOL TARTRATE 25 MG TAB PO SCH ×2 (08:39→23:24)
[2018-09-04] MEDS: ISOSORBIDE MONONITRATE ER 30 MG TAB.ER.24H PO SCH (08:39)
[2018-09-04] MEDS: ALLOPURINOL 100 MG TAB PO SCH (08:40)
[2018-09-04] MEDS: AMIODARONE 200 MG TAB PO SCH ×2 (08:40→22:29)
[2018-09-04] MEDS: cloNIDine HCL 0.1 MG TAB PO SCH ×3 (08:40→22:29)
[2018-09-04] MEDS: FUROSEMIDE 40 MG TAB PO SCH (08:40)
[2018-09-04] MEDS: ONDANSETRON 4 MG TAB PO SCH ×3 (08:40→17:52)
[2018-09-04] MEDS: CYANOCOBALAMIN-FA-PYRIDOXINE 1 EACH TAB PO SCH (08:42)
[2018-09-04] MEDS: METOLAZONE 2.5 MG TAB PO SCH (08:43)
[2018-09-04] MEDS: PARoxetine 10 MG TAB PO SCH (08:43)
[2018-09-04] MEDS: PANTOPRAZOLE 40 MG TABLET PO SCH ×2 (08:43→17:52)
--- NOTE | 2018-09-04 09:35 | XR ---
EXAMINATION TYPE: XR chest 1V portable DATE OF EXAM: 09/04/2018 COMPARISON: 09/03/2018 HISTORY: Shortness of breath TECHNIQUE: Single frontal view of the chest is obtained. FINDINGS: Bilateral consolidation and pleural effusion stable. Diffuse interstitial pattern seen. No sizable pneumothorax. Left-sided central line noted. Cardiomegaly and postsurgical changes noted. Diffuse osteopenia. IMPRESSION: 1 bilateral infiltrate and pleural effusion correlate for CHF. Underlying pneumonia not excluded. Findings stable.
[2018-09-04] MEDS: POTASSIUM CHLORIDE 20 MEQ in WATER FOR INJECTION 1 100ML.BAG IVPB SCH ×3 (10:27→15:37)
--- NOTE | 2018-09-04 10:56 | P.PN ---
Subjective Progress Note Date: 09/04/18 On today's evaluation of 09/04/2018 I'm seeing this patient for a follow-up. As mentioned earlier, the patient in the ICU for complications of CHF and bilateral pleural effusions and acute hypoxic respiratory failure. The patient was being diuresis with IV Lasix. The patient developed an acute kidney injury secondary to aggressive diuresis in the setting of an underlying cardiomyopathy.. As such, diabetes mellitus was stopped yesterday and the patient was switched to oral Lasix 40 mg by mouth twice a day. She is still on Zaroxolyn. I also performed a thoracentesis on him yesterday. The right-sided pleural effusion was drained. A total of 1.2 L of pleural fluid was aspirated and the fluid was transudate with a low LDH and protein. A follow-up thoracentesis on the left will be done today. This procedure made the patient a short of breath. She is breathing easier. The chest x-ray from today shows improvement in the right-sided pleural effusion. There is still a decent sized left-sided pleural effusion that needs to be drained today. She is afebrile. She is hemodynamically stable. She is on oxygen at 2 L per minute nasal cannula and his saturations around 97%. The renal function is worse compared to yesterday creatinine is up to 2.5. The rest of the electrodes and blood work was done indicating a chronic anemia with a hemoglobin of 7.3. Objective - Vital Signs Vital signs: Vital Signs Temp 98.6 F 09/04/18 04:00 Pulse 55 L 09/04/18 07:27 Resp 13 09/04/18 06:00 BP 111/44 09/04/18 06:00 Pulse Ox 97 09/04/18 06:00 Intake & Output 09/03/18 09/04/18 09/04/18 18:59 06:59 18:59 Intake Total 1079 470 Output Total 2395 525 Balance -1316 -55 Weight 92.5 kg Intake: IV 399 230 .9 pressure bags 39 30 Potassium Chloride 10 meq 100 In Water For Injection 1 100ml.bag @ 100 mls/hr IVPB Q1H [facility] Rx#: [id number] Sodium Chloride 0.9% 1, 260 200 000 ml @ 20 mls/hr IV . Q24H [facility] Rx#:[id number] Intake, IV Titration 100 Amount Potassium Chloride 10 meq 100 In Water For Injection 1 100ml.bag @ 100 mls/hr IVPB Q1H [facility] Rx#: [id number] Oral 580 240 Output: Drainage 1150 Right Chest 1150 Urine 1245 525 Other: Voiding Method Indwelling Catheter Indwelling Catheter ABP, PAP, CO, CI - Last Documented Arterial Blood Pressure 90/76 - Exam No acute distress, awake and alert, with nasal O2 in place. She looks relatively comfortable. HEENT examination is grossly unremarkable. Mucous membranes are moist. Neck supple. Full range of motion. No adenopathy thyromegaly or neck vein distention. Cardiovascular examination reveals regular rhythm rate. S1-S2 normal. No S3 or S4. No discernible murmur noted. Heart sounds are distant. Lungs reveal coarse bilateral crackles and rhonchi. Breath sounds are diminished throughout. The patient continues to have dullness in her left base. There is also bibasilar crackles. Air entry is significantly improved on the right. Abdomen soft and bowel sounds are heard. No masses or tenderness. Extremities are intact. No cyanosis clubbing or edema. The patient is wearing a boot in the right lower extremity. Adequate pulses in lower extremities bilaterally. No cyanosis. No clubbing. The patient is awaiting an immobilizing boot regarding the ankle fracture. Skin is without rash or lesion.Examination of the skin revealed no evidence of significant rashes, suspicious appearing nevi or other concerning lesions. Neurologic examination is nonfocal. She does move all 4 extremities, right side is weak compared to the left. The previous CVA. - Labs CBC & Chem 7: 09/04/18 04:57 09/04/18 04:57 Labs: Abnormal Lab Results - Last 24 Hours (Table) 09/03/18 09/03/18 09/03/18 Range/Units 04:21 12:07 17:02 WBC (3.8-10.6) k/uL RBC (3.80-5.40) m/uL Hgb (11.4-16.0) gm/dL Hct (34.0-46.0) % MCHC (31.0-37.0) g/dL RDW (11.5-15.5) % Neutrophils # (1.3-7.7) k/uL Monocytes # (0-1.0) k/uL Sodium (137-145) mmol/L Chloride (98-107) mmol/L Carbon Dioxide (22-30) mmol/L BUN (7-17) mg/dL Creatinine (0.52-1.04) mg/dL POC Glucose (mg/dL) 268 H 132 H (75-99) mg/dL Calcium (8.4-10.2) mg/dL AST (14-36) U/L Total Protein 5.8 L (6.3-8.2) g/dL Albumin (3.5-5.0) g/dL 09/03/18 09/03/18 09/04/18 Range/Units 17:47 21:09 04:57 WBC 13.6 H (3.8-10.6) k/uL RBC 2.83 L (3.80-5.40) m/uL Hgb 7.3 L (11.4-16.0) gm/dL Hct 24.4 L (34.0-46.0) % MCHC 30.1 L (31.0-37.0) g/dL RDW 19.0 H (11.5-15.5) % Neutrophils # 10.2 H (1.3-7.7) k/uL Monocytes # 1.6 H (0-1.0) k/uL Sodium (137-145) mmol/L Chloride (98-107) mmol/L Carbon Dioxide (22-30) mmol/L BUN (7-17) mg/dL Creatinine (0.52-1.04) mg/dL POC Glucose (mg/dL) 129 H 182 H (75-99) mg/dL Calcium (8.4-10.2) mg/dL AST (14-36) U/L Total Protein (6.3-8.2) g/dL Albumin (3.5-5.0) g/dL 09/04/18 Range/Units 04:57 WBC (3.8-10.6) k/uL RBC (3.80-5.40) m/uL Hgb (11.4-16.0) gm/dL Hct (34.0-46.0) % MCHC (31.0-37.0) g/dL RDW (11.5-15.5) % Neutrophils # (1.3-7.7) k/uL Monocytes # (0-1.0) k/uL Sodium 133 L (137-145) mmol/L Chloride 91 L (98-107) mmol/L Carbon Dioxide 32 H (22-30) mmol/L BUN 59 H (7-17) mg/dL Creatinine 2.57 H (0.52-1.04) mg/dL POC Glucose (mg/dL) (75-99) mg/dL Calcium 8.3 L (8.4-10.2) mg/dL AST 45 H (14-36) U/L Total Protein 5.5 L (6.3-8.2) g/dL Albumin 2.4 L (3.5-5.0) g/dL Microbiology - Last 24 Hours (Table) 09/03/18 12:30 Gram Stain - Preliminary Pleural Fluid Body Fluid Culture - Preliminary Assessment and Plan Plan: Assessment 1 Acute hypoxemic respiratory failure, secondary to CHF/pulmonary edema and complicated by atrial fibrillation/RVR in a patient with an echocardiogram showing ejection fraction of 30-35%, requiring intubation and mechanical ventilation on August 26. The patient remains extubated for now and she's been extubated on 08/30/2018. The patient however developed bilateral pleural effusion that was quite large in size. I performed a right-sided thoracentesis yesterday and a total of 1.2 L of a transudative type of fluid was aspirated from the right hemithorax. The procedure was done without any complication. The patient continues to have some left-sided pleural effusion which is moderate in size and I think she would benefit from another thoracentesis on the left. 2 acute hypoxic respiratory failure, requiring intubation mechanical ventilation , Status post extubation from mechanical ventilation on August 30, currently she is improved and the patient underwent a right-sided thoracentesis, left- sided thoracentesis pending and the patient is currently on 2 L of oxygen by nasal cannula. 3 CHF with systolic heart failure, chronic in addition to Severe pulmonary hypertension by echocardiogram. 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 The patient presented with a creatinine of 1.2 and there has been progressive rise in the creatinine this morning is up to 2.57. Rule out development of an acute tubular necrosis. Rule out cardiac renal factor secondary to CHF and aggressive diuresis. MARILYN Continue with oral Lasix. Proceed with a left-sided thoracentesis today. The right-sided procedure was done without any complication and the fluid was a transudate. There are no significant lower extremity edema. I think this thoracenteses itself should optimize the patient's fluid balance. Monitor renal function and the patient developed an acute kidney injury especially with diuresis. We'll continue to follow.
--- NOTE | 2018-09-04 12:20 | XR ---
EXAMINATION TYPE: XR chest 1V portable DATE OF EXAM: 09/04/2018 COMPARISON: 09/04/2018 at 6:16 AM HISTORY: Status post left-sided thoracentesis today and right-sided thoracentesis yesterday. TECHNIQUE: Single frontal view of the chest is obtained. FINDINGS: There is a small residual right pleural effusion and trace left pleural effusion blunting the costophrenic angles. Cardia mediastinal silhouette is enlarged with postsurgical changes. Stable left internal jugular central venous catheter. Generalized osseous demineralization is seen. IMPRESSION: Decreased left pleural effusion, now trace and small residual right pleural effusion. No sizable postprocedural pneumothorax.
[2018-09-04 12:39] LABS: Glucose,Whole Blood 179 mg/dL (75-99)
[2018-09-04] MEDS: SODIUM CHLORIDE 0.9% 1,000 ML IV SCH (15:38)
[2018-09-04 17:17] LABS: Glucose,Whole Blood 175 mg/dL (75-99)
[2018-09-04 20:42] LABS: Glucose,Whole Blood 233 mg/dL (75-99)
[2018-09-04] MEDS: ATORVASTATIN 40 MG TAB PO SCH (22:29)
[2018-09-04] MEDS: INSULIN DETEMIR 100 UNIT/ML 10 ML VIAL SQ SCH (22:30)
[2018-09-05 05:01] LABS: Anisocytosis Slight; Basophils % (A) 0 %; Eosinophils # (A) 0.2 k/uL (0-0.7); Eosinophils % (A) 1 %; HCT 24.4 % (34.0-46.0); HGB 7.3 gm/dL (11.4-16.0); Hypochromasia Marked; Lymphocytes # (A) 1.1 k/uL (1.0-4.8); Lymphocytes % (A) 10 %; MCH 25.6 pg (25.0-35.0); MCHC 29.9 g/dL (31.0-37.0); MCV 85.6 fL (80.0-100.0); Mean Platelet Volume 7.6; Monocytes # (A) 1.1 k/uL (0-1.0); Monocytes % (A) 9 %; Neutrophils # (A) 9.1 k/uL (1.3-7.7); Neutrophils % (A) 77 %; Platelet Count 249 k/uL (150-450); Poikilocytosis Moderate; RBC 2.86 m/uL (3.80-5.40); RDW 18.6 % (11.5-15.5); WBC 11.8 k/uL (3.8-10.6)
[2018-09-05 05:12] LABS: Albumin 2.5 g/dL (3.5-5.0); Calcium 8.3 mg/dL (8.4-10.2); Magnesium 2.1 mg/dL (1.6-2.3); Phosphorus 3.7 mg/dL (2.5-4.5); Potassium 3.7 mmol/L (3.5-5.1); Total Bilirubin 0.3 mg/dL (0.2-1.3); Total Protein 5.4 g/dL (6.3-8.2)
--- NOTE | 2018-09-05 06:24 | PN ---
PROGRESS NOTE DATE OF SERVICE: 09/04/2018 PRESENTING COMPLAINT: Tired. INTERVAL HISTORY: This patient with prior stroke is bed bound, presented with acute pulmonary edema, was intubated on August 26, extubated on August 30. The patient had thoracentesis done yesterday and the other side had thoracentesis done today. The patient also been in renal failure from diuresis. Otherwise, tolerating a diet. REVIEW OF SYSTEMS: Done for constitutional, cardiovascular, GI, pulmonary; relevant findings as above. CURRENT MEDICATIONS: Current medications are reviewed. Lasix was discontinued. Patient also on Zaroxolyn. PHYSICAL EXAMINATION: On examination, temperature 97.9, pulse 53, respiratory 18, blood pressure 128/52, pulse ox 95% on 2 L. GENERAL APPEARANCE: Lying in bed, awake. EYES: Pupils equal. Conjunctivae normal. HENT: External appearance of nose and ears normal. Oral cavity normal. NECK: JVD unable to assess. Mass not palpable. RESPIRATORY: Effort normal. LUNGS: Decreased breath sounds. CARDIOVASCULAR: Heart sounds are irregular. No edema. ABDOMEN: Soft, nontender. Liver and spleen not palpable. PSYCHIATRY: Awake, answering simple questions. NEUROLOGICAL: Speech is staggered. Power in the right arm and right leg is 3/5. Also patient has a right lower extremity brace. INVESTIGATIONS: Hemoglobin 7.3. Potassium 3.5. BUN 59, creatinine 2.57. ASSESSMENT: 1. Acute flash pulmonary edema causing acute hypoxic respiratory failure requiring ventilator support from congestive heart failure from diastolic dysfunction, ejection fraction 55%. 2. Persistent atrial fibrillation with rapid ventricular rate, now better controlled. 3. Recent right ankle fracture with medial malleolus and fibula fracture secondary to fall being managed with a brace. 4. Recent ischemic stroke in the left middle cerebral artery area in a right-handed patient with residual right-sided weakness and dysarthria from recent admission. 5. Coronary artery disease, prior history of coronary artery bypass. 6. Chronic obstructive pulmonary disease in an ex-smoker. 7. Multi-infarct dementia causing moderate cognitive impairment. 8. Diabetes mellitus type 2, chronically on insulin. 9. Gastroesophageal reflux disease. 10.Hyperlipidemia. 11.Primary osteoarthritis. 12.Chronic kidney disease, stage III from nephrosclerosis. 13.Chronic low back pain from sciatica. 14.Chronic urinary incontinence. 15.Generalized anxiety disorder, not otherwise specified. 16.Moderate mitral and tricuspid regurgitation, nonrheumatic. 17.Severe secondary pulmonary hypertension. 18.Acute bilateral pleural effusion from congestive heart failure, status post bilateral thoracentesis. 19.Acute renal failure from diuresis, worsening. PLAN: Patient's oral Lasix was stopped. We will also stop the Zaroxolyn, though patient may be noted keeps going in to flash pulmonary edema has to be kept in a negative fluid balance. Also spoke to patient's daughter at length about considering a do not resuscitate status given her multiple comorbidities and multiple admissions. Also spoke at length to Dr. Wisdom and also spoke to Dr. Pulido. Will see how the patient's renal function does expecting the patient to go back to the ECF in the next couple of days. Prognosis is guarded. Total time spent today was about 40 minutes with over 25 minutes of discussion. GIULIA / ASIF: [id number] /
[2018-09-05] MEDS: INSULIN ASPART 100 UNIT/ML 1 ML 10 ML VIAL SQ SCH ×4 (06:54→21:10)
[2018-09-05] MEDS: IPRATROPIUM-ALBUTEROL 3 ML NEB INHALATION SCH ×4 (06:54→19:32)
[2018-09-05] MEDS: PANTOPRAZOLE 40 MG TABLET PO SCH ×2 (07:02→18:13)
[2018-09-05] MEDS: ONDANSETRON 4 MG TAB PO SCH ×3 (07:02→18:10)
--- NOTE | 2018-09-05 07:19 | P.PN ---
Subjective Progress Note Date: 09/05/18 Principal diagnosis: Acute hypoxic respiratory failure This is a pleasant 73-year-old female patient with known history of coronary artery disease and status post CABG, chronic obstructive pulmonary disease, chronic kidney disease, paroxysmal atrial fibrillation, and history of stroke, was admitted to the intensive care unit with congestive heart failure secondary to diastole dysfunction as well as COPD exacerbation. She underwent an echocardiogram and that revealed mildly impaired LV function with EF of 45%, moderate MR, moderate TR, and severe pulmonary hypertension. The cardiac enzymes are slightly elevated. On follow-up with the patient today, September [id number], the patient continues to be doing better. Hemodynamically she continues to be stable. She is slightly bradycardic with heart rate in the 50s. The blood pressure has been within normal limits. The creatinine is slightly worse today and its 2.63 from 2.58. The hemoglobin continues to be stable. She did undergo right pleurocentesis with the removal of 1 L of fluid the day before yesterday and then she did undergo left pleurocentesis with the removal of 5 mL of fluid yesterday. Objective - Vital Signs Vital signs: Vital Signs Temp 98.9 F 09/05/18 04:00 Pulse 58 L 09/05/18 07:06 Resp 17 09/05/18 07:00 BP 126/62 09/05/18 07:00 Pulse Ox 100 09/05/18 07:00 Intake & Output 09/04/18 09/05/18 09/05/18 18:59 06:59 18:59 Intake Total 560 56 3 Output Total 925 555 45 Balance -365 -499 -42 Weight 91.4 kg Intake: IV 260 56 3 .9 pressure bags 60 36 3 Sodium Chloride 0.9% 1, 200 20 000 ml @ 20 mls/hr IV . Q24H [facility] Rx#:[id number] Intake, IV Titration 300 Amount Potassium Chloride 20 meq 300 In Water For Injection 1 100ml.bag @ 50 mls/hr IVPB Q2H [facility] Rx#: [id number] Output: Drainage 600 Left Chest 600 Urine 325 555 45 Other: Voiding Method Indwelling Catheter Indwelling Catheter # Voids 1 ABP, PAP, CO, CI - Last Documented Arterial Blood Pressure 90/76 - Constitutional General appearance: Present: no acute distress - Respiratory Respiratory: bilateral: diminished - Cardiovascular Rhythm: regular Heart sounds: normal: S1, S2 - Labs CBC & Chem 7: 09/05/18 04:48 09/05/18 04:48 Labs: Abnormal Lab Results - Last 24 Hours (Table) 09/04/18 09/04/18 09/04/18 Range/Units 12:21 17:04 20:39 WBC (3.8-10.6) k/uL RBC (3.80-5.40) m/uL Hgb (11.4-16.0) gm/dL Hct (34.0-46.0) % MCHC (31.0-37.0) g/dL RDW (11.5-15.5) % Neutrophils # (1.3-7.7) k/uL Monocytes # (0-1.0) k/uL Sodium (137-145) mmol/L Chloride (98-107) mmol/L Carbon Dioxide (22-30) mmol/L BUN (7-17) mg/dL Creatinine (0.52-1.04) mg/dL Glucose (74-99) mg/dL POC Glucose (mg/dL) 179 H 175 H 233 H (75-99) mg/dL Calcium (8.4-10.2) mg/dL AST (14-36) U/L Total Protein (6.3-8.2) g/dL Albumin (3.5-5.0) g/dL 09/05/18 09/05/18 Range/Units 04:48 04:48 WBC 11.8 H (3.8-10.6) k/uL RBC 2.86 L (3.80-5.40) m/uL Hgb 7.3 L (11.4-16.0) gm/dL Hct 24.4 L (34.0-46.0) % MCHC 29.9 L (31.0-37.0) g/dL RDW 18.6 H (11.5-15.5) % Neutrophils # 9.1 H (1.3-7.7) k/uL Monocytes # 1.1 H (0-1.0) k/uL Sodium 132 L (137-145) mmol/L Chloride 92 L (98-107) mmol/L Carbon Dioxide 32 H (22-30) mmol/L BUN 66 H (7-17) mg/dL Creatinine 2.63 H (0.52-1.04) mg/dL Glucose 114 H (74-99) mg/dL POC Glucose (mg/dL) (75-99) mg/dL Calcium 8.3 L (8.4-10.2) mg/dL AST 41 H (14-36) U/L Total Protein 5.4 L (6.3-8.2) g/dL Albumin 2.5 L (3.5-5.0) g/dL Microbiology - Last 24 Hours (Table) 09/03/18 12:30 Gram Stain - Preliminary Pleural Fluid Body Fluid Culture - Preliminary Assessment and Plan Assessment: Assessment #1 congestive heart failure exacerbation secondary to diastolic dysfunction, acute on chronic #2 acute exacerbation of COPD #3 severe pulmonary hypertension #4 paroxysmal atrial fibrillation #5 coronary artery disease and status post CABG #6 chest discomfort #7 multiple comorbid conditions Plan #1 continue the current medical regimen including the metoprolol by mouth and amiodarone by mouth #2 the Lasix seems to be on hold at this point in view of the worsening kidney function #3 continue monitor the kidney function and electrolytes #4 continue holding any anticoagulation #5 follow-up with the patient
[2018-09-05 07:20] LABS: Glucose,Whole Blood 109 mg/dL (75-99)
[2018-09-05] MEDS: ISOSORBIDE MONONITRATE ER 30 MG TAB.ER.24H PO SCH (08:30)
[2018-09-05] MEDS: AMIODARONE 200 MG TAB PO SCH ×2 (08:31→21:10)
[2018-09-05] MEDS: METOPROLOL TARTRATE 25 MG TAB PO SCH ×2 (08:31→21:14)
[2018-09-05] MEDS: PARoxetine 10 MG TAB PO SCH (08:31)
[2018-09-05] MEDS: CLOPIDOGREL 75 MG TAB PO SCH (08:31)
[2018-09-05] MEDS: CYANOCOBALAMIN-FA-PYRIDOXINE 1 EACH TAB PO SCH (08:31)
[2018-09-05] MEDS: cloNIDine HCL 0.1 MG TAB PO SCH ×3 (08:31→21:13)
[2018-09-05] MEDS: ALLOPURINOL 100 MG TAB PO SCH (08:31)
--- NOTE | 2018-09-05 09:30 | PCN ---
PROCEDURE NOTE INDICATION: Pleural effusion. A time-out was completed verifying correct patient, procedure, site, positioning , and implant (s) or special equipment if applicable. Ultrasound guidance was not used and appropriate fluid pocket was identified and marked. Patient was positioned, prepped and draped in usual sterile fashion. Lidocaine was used to anesthetize the area. A Thoracentesis catheter was introduced into the pleural space and fluid was removed. Blood loss was none. Total Fluid Removed: 600 mL Color of Fluid: Turbid dark yellowish pleural effusion. No complications/no pneumothorax. Patient tolerated the procedure well and there were no complications. MMODL / IJN: [id number] /
--- NOTE | 2018-09-05 10:44 | XR ---
EXAMINATION TYPE: XR chest 1V portable DATE OF EXAM: 09/05/2018 COMPARISON: Prior chest x-ray 09/04/2018 HISTORY: Difficulty breathing TECHNIQUE: Single frontal view of the chest is obtained. FINDINGS: Patient is post median sternotomy. Heart is enlarged. Bibasilar increased densities presen t, there is blunting the costophrenic angles. No evident pneumothorax. Interstitium is increased. Lef t jugular central venous catheter is stable. Aorta is dense. IMPRESSION: Bibasilar effusions and associated edema versus atelectasis, pneumonia not excluded. Cor relate for volume overload, congestive heart failure. Findings not significantly changed.
[2018-09-05 12:24] LABS: Glucose,Whole Blood 153 mg/dL (75-99)
[2018-09-05] MEDS ORDERED: ONDANSETRON 4 MG TAB PO SCH (12:30)
[2018-09-05] MEDS: SODIUM CHLORIDE 0.9% 1,000 ML IV SCH (13:11)
--- NOTE | 2018-09-05 14:13 | P.PN ---
Subjective Progress Note Date: 09/05/18 Principal diagnosis: Acute hypoxic respiratory failure secondary to acute exacerbation of systolic congestive heart failure requiring intubation mechanical ventilatory support. Extubated 08/30/2018. The patient is seen again today 09/05/2018 in follow-up in the intensive care unit. He is currently awake and alert in no acute distress. She denies any worsening shortness of breath, cough or congestion. She is maintaining good O2 saturations in the high 90s on 2 L/m per nasal cannula. She's afebrile. Hemodynamically stable. Today's chest x-ray reveals bibasilar effusions with associated edema versus atelectasis. Improved compared to previous. She is status post bilateral thoracentesis. Pleural fluid cultures are pending. Sputum culture is negative. Blood cultures are negative. White count 11.8. Hemoglobin 7.3. Creatinine 2.63. Lasix currently on hold. Objective - Vital Signs Vital signs: Vital Signs Temp 98.3 F 09/05/18 12:00 Pulse 55 L 09/05/18 12:00 Resp 13 09/05/18 12:00 BP 146/56 09/05/18 12:00 Pulse Ox 96 09/05/18 12:00 Intake & Output 09/04/18 09/05/18 09/05/18 18:59 06:59 18:59 Intake Total 560 56 118 Output Total 925 555 426 Balance -365 -499 -308 Weight 91.4 kg 91.4 kg Intake: IV 260 56 118 .9 pressure bags 60 36 18 Sodium Chloride 0.9% 1, 200 20 100 000 ml @ 20 mls/hr IV . Q24H [facility] Rx#:[id number] Intake, IV Titration 300 Amount Potassium Chloride 20 meq 300 In Water For Injection 1 100ml.bag @ 50 mls/hr IVPB Q2H [facility] Rx#: [id number] Output: Drainage 600 Left Chest 600 Urine 325 555 426 Other: Voiding Method Indwelling Catheter Indwelling Catheter Indwelling Catheter # Voids 1 1 ABP, PAP, CO, CI - Last Documented Arterial Blood Pressure 90/76 - Exam GENERAL EXAM: Alert, on 2 L/m per nasal cannula, comfortable in no apparent distress. HEAD: Normocephalic. EYES: Normal reaction of pupils, equal size. NOSE: Clear with pink turbinates. THROAT: No erythema or exudates. NECK: No masses, no JVD. CHEST: No chest wall deformity. LUNGS: Equal air entry with crackles in the bilateral posterior bases. CVS: S1 and S2 normal with no audible murmur, regular rhythm. ABDOMEN: No hepatosplenomegaly, normal bowel sounds, no guarding or rigidity. SPINE: No scoliosis or deformity SKIN: No rashes CENTRAL NERVOUS SYSTEM: No focal deficits, tone is normal in all 4 extremities. EXTREMITIES: There is no peripheral edema. No clubbing, no cyanosis. Peripheral pulses are intact. - Labs CBC & Chem 7: 09/05/18 04:48 09/05/18 04:48 Labs: Abnormal Lab Results - Last 24 Hours (Table) 09/04/18 09/04/18 09/05/18 Range/Units 17:04 20:39 04:48 WBC 11.8 H (3.8-10.6) k/uL RBC 2.86 L (3.80-5.40) m/uL Hgb 7.3 L (11.4-16.0) gm/dL Hct 24.4 L (34.0-46.0) % MCHC 29.9 L (31.0-37.0) g/dL RDW 18.6 H (11.5-15.5) % Neutrophils # 9.1 H (1.3-7.7) k/uL Monocytes # 1.1 H (0-1.0) k/uL Sodium (137-145) mmol/L Chloride (98-107) mmol/L Carbon Dioxide (22-30) mmol/L BUN (7-17) mg/dL Creatinine (0.52-1.04) mg/dL Glucose (74-99) mg/dL POC Glucose (mg/dL) 175 H 233 H (75-99) mg/dL Calcium (8.4-10.2) mg/dL AST (14-36) U/L Total Protein (6.3-8.2) g/dL Albumin (3.5-5.0) g/dL 09/05/18 09/05/18 09/05/18 Range/Units 04:48 06:53 12:10 WBC (3.8-10.6) k/uL RBC (3.80-5.40) m/uL Hgb (11.4-16.0) gm/dL Hct (34.0-46.0) % MCHC (31.0-37.0) g/dL RDW (11.5-15.5) % Neutrophils # (1.3-7.7) k/uL Monocytes # (0-1.0) k/uL Sodium 132 L (137-145) mmol/L Chloride 92 L (98-107) mmol/L Carbon Dioxide 32 H (22-30) mmol/L BUN 66 H (7-17) mg/dL Creatinine 2.63 H (0.52-1.04) mg/dL Glucose 114 H (74-99) mg/dL POC Glucose (mg/dL) 109 H 153 H (75-99) mg/dL Calcium 8.3 L (8.4-10.2) mg/dL AST 41 H (14-36) U/L Total Protein 5.4 L (6.3-8.2) g/dL Albumin 2.5 L (3.5-5.0) g/dL Microbiology - Last 24 Hours (Table) 09/03/18 12:30 Gram Stain - Preliminary Pleural Fluid Body Fluid Culture - Preliminary Assessment and Plan Plan: Assessment 1 Acute hypoxemic respiratory failure, secondary to CHF/pulmonary edema and complicated by atrial fibrillation/RVR in a patient with an echocardiogram showing ejection fraction of 30-35%, requiring intubation and mechanical ventilation on August 26. The patient remains extubated for now and she's been extubated on 08/30/2018. The patient however continued to have some CHF findings on her chest x-ray and bilateral pleural effusions status post bilateral thoracentesis. Cultures are pending.. 2 acute hypoxic respiratory failure, requiring intubation mechanical ventilation , Status post extubation from mechanical ventilation on August 30 2018. Currently down to 2 L/m per nasal cannula maintaining good O2 saturations in the upper 90s. 3 CHF with systolic heart failure, chronic in addition to severe pulmonary hypertension by echocardiogram. 4 bilateral pleural effusions status post bilateral thoracentesis. Protein 1.3. LDH 70. 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 Wisdom. Chest x-ray and labs were reviewed. We'll continue with her current treatment plan. Lasix on hold. We' ll continue to monitor her creatinine level. Continue to monitor I&O. We will increase her activity as tolerated. We'll continue to follow make further recommendations based on her clinical status. I, the cosigning physician, performed a history & physical examination of the patient. Lungs sounds with crackles in the bilateral posterior bases Maintaining good O2 saturations in the 90s on 2 L/m per nasal cannula. I discussed the assessment and plan of care with my nurse practitioner, Aria Brown. I attest to the above note as dictated by her.
[2018-09-05 17:27] LABS: Glucose,Whole Blood 117 mg/dL (75-99)
[2018-09-05 21:08] LABS: Glucose,Whole Blood 165 mg/dL (75-99)
[2018-09-05] MEDS: INSULIN DETEMIR 100 UNIT/ML 10 ML VIAL SQ SCH (21:10)
[2018-09-05] MEDS: ATORVASTATIN 40 MG TAB PO SCH (21:13)
--- NOTE | 2018-09-05 21:18 | PN ---
PROGRESS NOTE DATE OF SERVICE: September 05, 2018. PRESENTING COMPLAINT: Tired. INTERVAL HISTORY: This patient prior stroke, bed-bound, presented with acute pulmonary edema, was intubated from August 26 to August 30. Status post bilateral thoracentesis. The patient also been in acute renal failure from diuresis. Diuretics were discontinued yesterday. Patient tolerating a diet. Lying in bed, does answer simple questions. REVIEW OF SYSTEMS: Done for constitutional, cardiovascular, GI, pulmonary, relevant findings as above. CURRENT MEDICATIONS: Reviewed. Patient's diuretics have been discontinued. PHYSICAL EXAMINATION: VITAL SIGNS: Temperature 98.3, pulse 54, respiration 21, blood pressure 125/50, pulse ox 94% on 2 L. GENERAL APPEARANCE: Lying in bed, awake. EYES: Pupils equal. Conjunctivae normal. HEENT: External appearance of nose and ears normal. Oral cavity normal. NECK: JVD not raised. Mass not palpable. RESPIRATORY: Effort normal. LUNGS: Decreased breath sounds. CARDIOVASCULAR: Heart sounds irregular. No edema. ABDOMEN: Soft, nontender. Liver and spleen not palpable. PSYCHIATRY: Does answer some simple questions. NEUROLOGICAL: Speech is staggered . Power in the right arm and right leg is 3/5. Also got a right lower extremity brace. INVESTIGATIONS: White count 11.8, hemoglobin 7.3, potassium 3.7, BUN 66, creatinine 2.63. ASSESSMENT: 1. Acute flash pulmonary edema causing acute hypoxic respiratory failure requiring ventilator support from current congestive heart failure from diastolic dysfunction. EF 55% improved. 2. Persistent atrial fibrillation with rapid ventricular rate on presentation, now better controlled. 3. Recent right ankle fracture with medial melanosis and fibula fracture secondary to fall, being managed with a brace. 4. Ischemic stroke in the left middle cerebral artery in a right-handed patient with residual right-sided weakness and dysarthria from recent admission. 5. Coronary artery disease, prior history of coronary artery bypass. 6. Chronic obstructive pulmonary disease in an ex-smoker. 7. Multi-infarct dementia causing moderate cognitive impairment. 8. Diabetes mellitus type 2, chronically on insulin. 9. Gastroesophageal reflux disease. 10.Hyperlipidemia. 11.Primary osteoarthritis. 12.Chronic kidney disease stage 3 from nephrosclerosis. 13.Chronic low back pain from sciatica. 14.Chronic urine incontinence. 15.Generalized anxiety disorder not otherwise specified. 16.Moderate mitral and tricuspid regurgitation, nonrheumatic. 17.Severe secondary pulmonary hypertension. 18.Acute bilateral pleural effusions from congestive heart failure, status post bilateral thoracentesis. 19.Acute renal failure from diuresis continues to worsen. PLAN: Patient's diuretics have been held. Expect the renal function to tomorrow and start turning around. Prognosis remains guarded. No daughter is present today. MMODL / IJN: [id number] /
[2018-09-06 05:59] LABS: INR 1.1 (<1.2); Prothrombin Time 10.8 sec (9.0-12.0)
[2018-09-06 06:03] LABS: Calcium 8.2 mg/dL (8.4-10.2); Magnesium 2.1 mg/dL (1.6-2.3); Phosphorus 3.8 mg/dL (2.5-4.5); Potassium 3.6 mmol/L (3.5-5.1)
[2018-09-06 06:16] LABS: Anisocytosis Slight; Basophils % (A) 0 %; Eosinophils # (A) 0.1 k/uL (0-0.7); Eosinophils % (A) 1 %; HCT 24.8 % (34.0-46.0); HGB 7.4 gm/dL (11.4-16.0); Hypochromasia Marked; Lymphocytes # (A) 1.1 k/uL (1.0-4.8); Lymphocytes % (A) 10 %; MCH 25.5 pg (25.0-35.0); MCHC 29.8 g/dL (31.0-37.0); MCV 85.5 fL (80.0-100.0); Mean Platelet Volume 7.8; Monocytes % (A) 9 %; Neutrophils # (A) 9.1 k/uL (1.3-7.7); Neutrophils % (A) 79 %; Platelet Count 245 k/uL (150-450); Poikilocytosis Moderate; RDW 18.8 % (11.5-15.5); WBC 11.6 k/uL (3.8-10.6)
[2018-09-06] MEDS: INSULIN ASPART 100 UNIT/ML 1 ML 10 ML VIAL SQ SCH ×4 (07:05→20:40)
[2018-09-06 07:06] LABS: Glucose,Whole Blood 101 mg/dL (75-99)
[2018-09-06 07:18] LABS: Glucose,Whole Blood 94 mg/dL (75-99)
--- NOTE | 2018-09-06 07:59 | P.PN ---
Subjective Progress Note Date: 09/06/18 Principal diagnosis: Acute hypoxic respiratory failure This is a pleasant 73-year-old female patient with known history of coronary artery disease and status post CABG, chronic obstructive pulmonary disease, chronic kidney disease, paroxysmal atrial fibrillation, and history of stroke, was admitted to the intensive care unit with congestive heart failure secondary to diastole dysfunction as well as COPD exacerbation. She underwent an echocardiogram and that revealed mildly impaired LV function with EF of 45%, moderate MR, moderate TR, and severe pulmonary hypertension. The cardiac enzymes are slightly elevated. On follow-up with the patient today, September [id number], she is feeling better. Hemodynamically she continues to be stable. The heart rate and blood pressure are within normal limits. The creatinine is slightly worse today and its 2.61 from 2.63. The hemoglobin continues to be stable. She did undergo right pleurocentesis with the removal of 1 L of fluid the day before yesterday and then she did undergo left pleurocentesis with the removal of 5 mL of fluid yesterday. Objective - Vital Signs Vital signs: Vital Signs Temp 97.8 F 09/06/18 04:00 Pulse 55 L 09/06/18 04:00 Resp 18 09/06/18 04:00 BP 117/48 09/06/18 04:00 Pulse Ox 95 09/06/18 04:00 Intake & Output 09/05/18 09/06/18 09/06/18 18:59 06:59 18:59 Intake Total 270 446 Output Total 576 220 Balance -306 226 Weight 91.4 kg 86.1 kg Intake: IV 210 446 .9 pressure bags 30 36 Sodium Chloride 0.9% 1, 180 410 000 ml @ 20 mls/hr IV . Q24H [facility] Rx#:[id number] Oral 60 Output: Urine 576 220 Other: Voiding Method Indwelling Catheter Indwelling Catheter # Voids 1 1 ABP, PAP, CO, CI - Last Documented Arterial Blood Pressure 90/76 - Constitutional General appearance: Present: no acute distress - Respiratory Respiratory: bilateral: diminished - Cardiovascular Rhythm: regular Heart sounds: normal: S1, S2 Abnormal Heart Sounds: Present: systolic murmur - Labs CBC & Chem 7: 09/06/18 04:45 09/06/18 04:45 Labs: Abnormal Lab Results - Last 24 Hours (Table) 09/05/18 09/05/18 09/05/18 Range/Units 12:10 17:24 20:57 WBC (3.8-10.6) k/uL RBC (3.80-5.40) m/uL Hgb (11.4-16.0) gm/dL Hct (34.0-46.0) % MCHC (31.0-37.0) g/dL RDW (11.5-15.5) % Neutrophils # (1.3-7.7) k/uL Sodium (137-145) mmol/L Chloride (98-107) mmol/L Carbon Dioxide (22-30) mmol/L BUN (7-17) mg/dL Creatinine (0.52-1.04) mg/dL POC Glucose (mg/dL) 153 H 117 H 165 H (75-99) mg/dL Calcium (8.4-10.2) mg/dL 09/06/18 09/06/18 09/06/18 Range/Units 04:45 04:45 07:04 WBC 11.6 H (3.8-10.6) k/uL RBC 2.90 L (3.80-5.40) m/uL Hgb 7.4 L (11.4-16.0) gm/dL Hct 24.8 L (34.0-46.0) % MCHC 29.8 L (31.0-37.0) g/dL RDW 18.8 H (11.5-15.5) % Neutrophils # 9.1 H (1.3-7.7) k/uL Sodium 132 L (137-145) mmol/L Chloride 93 L (98-107) mmol/L Carbon Dioxide 31 H (22-30) mmol/L BUN 66 H (7-17) mg/dL Creatinine 2.61 H (0.52-1.04) mg/dL POC Glucose (mg/dL) 101 H (75-99) mg/dL Calcium 8.2 L (8.4-10.2) mg/dL Microbiology - Last 24 Hours (Table) 09/03/18 12:30 Gram Stain - Preliminary Pleural Fluid Body Fluid Culture - Preliminary Assessment and Plan Assessment: Assessment #1 congestive heart failure exacerbation secondary to diastolic dysfunction, acute on chronic #2 acute exacerbation of COPD #3 severe pulmonary hypertension #4 paroxysmal atrial fibrillation #5 coronary artery disease and status post CABG #6 chest discomfort #7 multiple comorbid conditions Plan #1 continue the current medical regimen including the metoprolol by mouth and amiodarone by mouth #2 the Lasix seems to be on hold at this point in view of the worsening kidney function #3 continue monitor the kidney function and electrolytes #4 continue holding any anticoagulation #5 follow-up with the patient
[2018-09-06] MEDS: ONDANSETRON 4 MG TAB PO SCH ×3 (08:58→18:25)
[2018-09-06] MEDS: AMIODARONE 200 MG TAB PO SCH ×2 (08:58→20:40)
[2018-09-06] MEDS: CYANOCOBALAMIN-FA-PYRIDOXINE 1 EACH TAB PO SCH (08:58)
[2018-09-06] MEDS: METOPROLOL TARTRATE 25 MG TAB PO SCH ×2 (08:58→20:41)
[2018-09-06] MEDS: ISOSORBIDE MONONITRATE ER 30 MG TAB.ER.24H PO SCH (08:58)
[2018-09-06] MEDS: PARoxetine 10 MG TAB PO SCH (08:58)
[2018-09-06] MEDS: cloNIDine HCL 0.1 MG TAB PO SCH ×3 (08:58→20:40)
[2018-09-06] MEDS: ALLOPURINOL 100 MG TAB PO SCH (08:59)
[2018-09-06] MEDS: PANTOPRAZOLE 40 MG TABLET PO SCH ×2 (08:59→18:25)
[2018-09-06] MEDS: CLOPIDOGREL 75 MG TAB PO SCH (08:59)
[2018-09-06] MEDS: IPRATROPIUM-ALBUTEROL 3 ML NEB INHALATION SCH ×3 (09:35→20:43)
[2018-09-06] MEDS ORDERED: POTASSIUM CHLORIDE 20 MEQ/100 ML BAG IVPB ONE (11:51)
[2018-09-06] MEDS: POTASSIUM CHLORIDE 20 MEQ in WATER FOR INJECTION 1 100ML.BAG IVPB SCH ×2 (12:36→16:10)
[2018-09-06 12:40] LABS: Glucose,Whole Blood 153 mg/dL (75-99)
--- NOTE | 2018-09-06 13:10 | P.PN ---
Subjective Progress Note Date: 09/06/18 Principal diagnosis: Acute hypoxic respiratory failure secondary to acute exacerbation of systolic congestive heart failure requiring intubation mechanical ventilatory support. Extubated 08/30/2018. The patient is seen again today 09/06/2018 in follow-up in the intensive care unit. She is awake and alert in no acute distress. She is resting quite comfortably in bed. He denies any worsening shortness of breath, cough or congestion. She is maintaining good O2 saturations in the mid 90s on room air. She is afebrile. Hemodynamically stable. She remains in sinus bradycardia. On Cordarone 400 twice a day. Blood culture reveals no growth. Sputum culture reveals no growth. Pleural fluid reveals no growth. Pathology negative for malignancy. White count 11.6. Hemoglobin 7.4. Creatinine 2.61. Objective - Vital Signs Vital signs: Vital Signs Temp 98.3 F 09/06/18 08:01 Pulse 53 L 09/06/18 10:00 Resp 18 09/06/18 11:42 BP 154/62 09/06/18 10:00 Pulse Ox 95 09/06/18 10:00 Intake & Output 09/05/18 09/06/18 09/06/18 18:59 06:59 18:59 Intake Total 270 446 184 Output Total 576 220 230 Balance -306 226 -46 Weight 91.4 kg 86.1 kg Intake: IV 210 446 184 .9 pressure bags 30 36 24 Sodium Chloride 0.9% 1, 180 410 160 000 ml @ 20 mls/hr IV . Q24H [facility] Rx#:[id number] Oral 60 Output: Urine 576 220 230 Other: Voiding Method Indwelling Catheter Indwelling Catheter Indwelling Catheter # Voids 1 1 1 ABP, PAP, CO, CI - Last Documented Arterial Blood Pressure 90/76 - Exam GENERAL EXAM: Alert, on room air, comfortable in no apparent distress. HEAD: Normocephalic. EYES: Normal reaction of pupils, equal size. NOSE: Clear with pink turbinates. THROAT: No erythema or exudates. NECK: No masses, no JVD. CHEST: No chest wall deformity. LUNGS: Equal air entry with crackles in the bilateral posterior bases. CVS: S1 and S2 normal with no audible murmur, regular rhythm. ABDOMEN: No hepatosplenomegaly, normal bowel sounds, no guarding or rigidity. SPINE: No scoliosis or deformity SKIN: No rashes CENTRAL NERVOUS SYSTEM: No focal deficits, tone is normal in all 4 extremities. EXTREMITIES: There is no peripheral edema. No clubbing, no cyanosis. Peripheral pulses are intact. - Labs CBC & Chem 7: 09/06/18 04:45 09/06/18 04:45 Labs: Abnormal Lab Results - Last 24 Hours (Table) 09/05/18 09/05/18 09/06/18 Range/Units 17:24 20:57 04:45 WBC 11.6 H (3.8-10.6) k/uL RBC 2.90 L (3.80-5.40) m/uL Hgb 7.4 L (11.4-16.0) gm/dL Hct 24.8 L (34.0-46.0) % MCHC 29.8 L (31.0-37.0) g/dL RDW 18.8 H (11.5-15.5) % Neutrophils # 9.1 H (1.3-7.7) k/uL Sodium (137-145) mmol/L Chloride (98-107) mmol/L Carbon Dioxide (22-30) mmol/L BUN (7-17) mg/dL Creatinine (0.52-1.04) mg/dL POC Glucose (mg/dL) 117 H 165 H (75-99) mg/dL Calcium (8.4-10.2) mg/dL 09/06/18 09/06/18 09/06/18 Range/Units 04:45 07:04 12:27 WBC (3.8-10.6) k/uL RBC (3.80-5.40) m/uL Hgb (11.4-16.0) gm/dL Hct (34.0-46.0) % MCHC (31.0-37.0) g/dL RDW (11.5-15.5) % Neutrophils # (1.3-7.7) k/uL Sodium 132 L (137-145) mmol/L Chloride 93 L (98-107) mmol/L Carbon Dioxide 31 H (22-30) mmol/L BUN 66 H (7-17) mg/dL Creatinine 2.61 H (0.52-1.04) mg/dL POC Glucose (mg/dL) 101 H 153 H (75-99) mg/dL Calcium 8.2 L (8.4-10.2) mg/dL Microbiology - Last 24 Hours (Table) 09/03/18 12:30 Gram Stain - Preliminary Pleural Fluid Body Fluid Culture - Preliminary Assessment and Plan Plan: Assessment 1 Acute hypoxemic respiratory failure, secondary to CHF/pulmonary edema and complicated by atrial fibrillation/RVR in a patient with an echocardiogram showing ejection fraction of 30-35%, requiring intubation and mechanical ventilation on August 26. The patient remains extubated for now and she's been extubated on 08/30/2018. The patient however continued to have some CHF findings on her chest x-ray and bilateral pleural effusions status post bilateral thoracentesis. Cultures are active. Pathology negative for malignancy. Recovered. 2 acute hypoxic respiratory failure, requiring intubation mechanical ventilation , Status post extubation from mechanical ventilation on August 30 2018. Currently in room air. maintaining good O2 saturations in the upper 90s. 3 CHF with systolic heart failure, chronic in addition to severe pulmonary hypertension by echocardiogram. 4 bilateral pleural effusions status post bilateral thoracentesis. Protein 1.3. LDH 70. 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 Wisdom. She is currently stable from the pulmonary and critical care standpoint. She'll be transferred out of the ICU today. We'll continue with her current treatment plan. We'll continue to follow make further recommendations based on her clinical status. I, the cosigning physician, performed a history & physical examination of the patient. Lungs sounds with faint crackles in the bilateral posterior bases. Maintaining good O2 saturations in the 90s on room air. I discussed the assessment and plan of care with my nurse practitioner, Aria Brown. I attest to the above note as dictated by her.
[2018-09-06 18:14] LABS: Glucose,Whole Blood 183 mg/dL (75-99)
[2018-09-06 20:15] LABS: Glucose,Whole Blood 182 mg/dL (75-99)
[2018-09-06] MEDS: ATORVASTATIN 40 MG TAB PO SCH (20:41)
[2018-09-06] MEDS: INSULIN DETEMIR 100 UNIT/ML 10 ML VIAL SQ SCH (20:47)
[2018-09-06] MEDS: SODIUM CHLORIDE 0.9% 1,000 ML IV SCH (20:50)
--- NOTE | 2018-09-06 22:43 | PN ---
PROGRESS NOTE DATE OF SERVICE: 09/06/2018 PRESENTING COMPLAINT: Tired. INTERVAL HISTORY: This patient is pretty much bed-bound from a prior stroke. She presented with acute pulmonary edema, was intubated from August 26 through August 30 and is now status post bilateral thoracentesis. The patient also had acute renal failure from diuresis, the latter of which has been held. The patient is tolerating a diet. REVIEW OF SYSTEMS: Done for constitutional, cardiovascular, GI, pulmonary; relevant findings as above. CURRENT MEDICATIONS: Reviewed. They include DuoNeb. PHYSICAL EXAMINATION: Temperature 98.2, pulse 54, respiration 22, blood pressure 154/62, pulse ox 95% on room air. GENERAL APPEARANCE: Lying in bed. Awake. EYES: Pupils equal. Conjunctivae normal. HEENT: External appearance of nose and ears normal. Oral cavity normal. NECK: JVD unable to assess. Mass not palpable. RESPIRATORY: Effort normal. LUNGS: Decreased breath sounds. CARDIOVASCULAR: Heart sounds irregular. No edema. ABDOMEN: Soft, nontender. Liver and spleen not palpable. PSYCHIATRY: Does answer simple questions. NEUROLOGICAL: Speech is staggered at baseline. Power on the right side is 3/5. Patient also has a right lower extremity brace. INVESTIGATIONS: Accu-Cheks are noted. White count 11.6, hemoglobin 7.4, potassium 3.6, BUN 66, creatinine 2.61. ASSESSMENT: 1. Acute flash pulmonary edema causing acute hypoxic respiratory failure requiring ventilator support from congestive heart failure from diastolic dysfunction, ejection fraction 55%; now patient on the ventilator. 2. Persistent atrial fibrillation with rapid ventricular rate on presentation, now better controlled. 3. Recent right ankle fracture with medial malleolus and fibula fracture secondary to fall, being managed with a brace. 4. Ischemic stroke in the left middle cerebral artery in a right-handed patient with residual right-sided weakness and dysarthria from recent admission. 5. Coronary artery disease with prior history of coronary artery bypass. 6. Chronic obstructive pulmonary disease in an ex-smoker. 7. Multi-infarct dementia causing moderate cognitive impairment. 8. Diabetes mellitus, type 2, chronically on insulin. 9. Gastroesophageal reflux disease. 10.Hyperlipidemia. 11.Primary osteoarthritis. 12.Chronic kidney disease, stage III, from nephrosclerosis. 13.Chronic low back pain from sciatica. 14.Chronic urine incontinence. 15.Generalized anxiety disorder not otherwise specified. 16.Moderate mitral and tricuspid regurgitation, non-rheumatic. 17.Severe secondary pulmonary hypertension. 18.Acute bilateral pleural effusion from congestive heart failure, status post bilateral thoracentesis. 19.Acute renal failure from diuresis, starting to plateau. PLAN: Spoke to the daughter at the bedside. She and her sister had a discussion. They want the patient to be made FULL CODE. I expect the renal function overall prognosis, though, remains guarded. MMODL / IJN: [id number] /
[2018-09-07] MEDS: ACETAMINOPHEN TAB 500 MG TAB PO PRN ×2 (02:48→21:48)
[2018-09-07 07:19] LABS: Glucose,Whole Blood 72 mg/dL (75-99)
[2018-09-07] MEDS: IPRATROPIUM-ALBUTEROL 3 ML NEB INHALATION SCH ×3 (08:23→20:52)
[2018-09-07 08:25] LABS: Calcium 8.2 mg/dL (8.4-10.2); Potassium 3.9 mmol/L (3.5-5.1)
[2018-09-07] MEDS: INSULIN ASPART 100 UNIT/ML 1 ML 10 ML VIAL SQ SCH ×4 (08:27→20:50)
[2018-09-07] MEDS: ONDANSETRON 4 MG TAB PO SCH ×3 (10:13→18:28)
[2018-09-07] MEDS: PANTOPRAZOLE 40 MG TABLET PO SCH ×2 (10:13→18:28)
[2018-09-07] MEDS: cloNIDine HCL 0.1 MG TAB PO SCH ×3 (10:14→21:46)
[2018-09-07] MEDS: ALLOPURINOL 100 MG TAB PO SCH (10:14)
[2018-09-07] MEDS: CLOPIDOGREL 75 MG TAB PO SCH (10:16)
[2018-09-07] MEDS: CYANOCOBALAMIN-FA-PYRIDOXINE 1 EACH TAB PO SCH (10:35)
[2018-09-07] MEDS: PARoxetine 10 MG TAB PO SCH (10:36)
[2018-09-07 11:38] LABS: Glucose,Whole Blood 105 mg/dL (75-99)
[2018-09-07] MEDS: METOPROLOL TARTRATE 25 MG TAB PO SCH ×2 (12:07→20:10)
[2018-09-07] MEDS: ISOSORBIDE MONONITRATE ER 30 MG TAB.ER.24H PO SCH ×2 (12:07→12:10)
[2018-09-07] MEDS: AMIODARONE 200 MG TAB PO SCH ×2 (12:07→20:50)
--- NOTE | 2018-09-07 14:32 | P.PN ---
Subjective Progress Note Date: 09/07/18 Principal diagnosis: Acute hypoxic respiratory failure secondary to acute exacerbation of systolic congestive heart failure requiring intubation mechanical ventilatory support. Extubated 08/30/2018. The patient is seen again today 09/07/2018 in follow-up on the regular medical floor. She remains awake and alert in no acute distress. She denies any worsening shortness of breath, cough or congestion. She is down to 2 L/m per nasal cannula. She remains afebrile. Hemodynamically stable. Blood, sputum and pleural fluid reveals no growth. Creatinine 2.39. Hemoglobin 7.4. She is status post 1 unit packed red blood cells this admission. Objective - Vital Signs Vital signs: Vital Signs Temp 97.8 F 09/07/18 07:47 Pulse 58 L 09/07/18 10:11 Resp 16 09/07/18 07:47 BP 144/69 09/07/18 07:47 Pulse Ox 95 09/06/18 23:00 Intake & Output 09/06/18 09/07/18 09/07/18 18:59 06:59 18:59 Intake Total 184 70 0 Output Total 480 250 Balance -296 -180 0 Intake: IV 184 70 .9 pressure bags 24 Sodium Chloride 0.9% 1, 160 70 000 ml @ 20 mls/hr IV . Q24H [facility] Rx#:[id number] Oral 0 Output: Urine 480 250 Other: Voiding Method Indwelling Catheter Diaper Incontinent # Voids 1 2 3 ABP, PAP, CO, CI - Last Documented Arterial Blood Pressure 90/76 - Exam GENERAL EXAM: Alert, on 2 L/m per nasal cannula, comfortable in no apparent distress. HEAD: Normocephalic. EYES: Normal reaction of pupils, equal size. NOSE: Clear with pink turbinates. THROAT: No erythema or exudates. NECK: No masses, no JVD. CHEST: No chest wall deformity. LUNGS: Equal air entry with crackles in the bilateral posterior bases. CVS: S1 and S2 normal with no audible murmur, regular rhythm. ABDOMEN: No hepatosplenomegaly, normal bowel sounds, no guarding or rigidity. SPINE: No scoliosis or deformity SKIN: No rashes CENTRAL NERVOUS SYSTEM: No focal deficits, tone is normal in all 4 extremities. EXTREMITIES: There is no peripheral edema. No clubbing, no cyanosis. Peripheral pulses are intact. - Labs CBC & Chem 7: 09/06/18 04:45 09/07/18 07:29 Labs: Abnormal Lab Results - Last 24 Hours (Table) 09/06/18 09/06/18 09/07/18 Range/Units 18:02 20:04 07:07 Sodium (137-145) mmol/L Chloride (98-107) mmol/L BUN (7-17) mg/dL Creatinine (0.52-1.04) mg/dL Glucose (74-99) mg/dL POC Glucose (mg/dL) 183 H 182 H 72 L (75-99) mg/dL Calcium (8.4-10.2) mg/dL 09/07/18 09/07/18 Range/Units 07:29 11:21 Sodium 132 L (137-145) mmol/L Chloride 96 L (98-107) mmol/L BUN 61 H (7-17) mg/dL Creatinine 2.39 H (0.52-1.04) mg/dL Glucose 60 L (74-99) mg/dL POC Glucose (mg/dL) 105 H (75-99) mg/dL Calcium 8.2 L (8.4-10.2) mg/dL Microbiology - Last 24 Hours (Table) 09/03/18 12:30 Gram Stain - Final Pleural Fluid Body Fluid Culture - Final Assessment and Plan Plan: Assessment 1 Acute hypoxemic respiratory failure, secondary to CHF/pulmonary edema and complicated by atrial fibrillation/RVR in a patient with an echocardiogram showing ejection fraction of 30-35%, requiring intubation and mechanical ventilation on August 26. The patient remains extubated for now and she's been extubated on 08/30/2018. The patient however continued to have some CHF findings on her chest x-ray and bilateral pleural effusions status post bilateral thoracentesis. Cultures are negative. Pathology negative for malignancy. Recovered. 2 acute hypoxic respiratory failure, requiring intubation mechanical ventilation , Status post extubation from mechanical ventilation on August 30 2018. Currently in room air. maintaining good O2 saturations in the upper 90s. 3 CHF with systolic heart failure, chronic in addition to severe pulmonary hypertension by echocardiogram. 4 bilateral pleural effusions status post bilateral thoracentesis. Protein 1.3. LDH 70. 5 Metabolic alkalosis, secondary to hypokalemia and volume contraction 6 History of CVA involving the left middle cerebral artery with minimal residual right-sided weakness 7 Type 2 diabetes 8 COPD 9 Multi-infarct dementia 10 Benign essential hypertension 11 Stage III chronic kidney disease 12 Generalized anxiety disorder 13 GERD 14 Hyperlipidemia 15 History of recent ankle fracture 16 Anemia status post 1 unit packed red blood cells. Current hemoglobin 7.4. Plan: The patient was seen and evaluated by Dr. Wisdom. She is currently stable from the pulmonary standpoint. We'll continue with her current treatment plan. We'll continue to follow make further recommendations based on her clinical status. I, the cosigning physician, performed a history & physical examination of the patient. Lungs sounds with faint crackles in the bilateral posterior bases. Maintaining good O2 saturations in the 90s on 2 L/m per nasal cannula. I discussed the assessment and plan of care with my nurse practitioner, Aria Brown. I attest to the above note as dictated by her.
--- NOTE | 2018-09-07 15:32 | PN ---
PROGRESS NOTE Mrs. Jarvis is a 73-year-old female with a known history of coronary artery disease, status post coronary artery bypass grafting, who presented with symptoms of significant dyspnea and evidence congestive heart failure. She has a prior history of CVA, history of chronic kidney disease, hypertension and history of mild dementia. She had an echocardiogram during this admission that showed an ejection fraction of 45% to 50% with moderate mitral and moderate to severe tricuspid regurgitation. She is feeling much better at this time. Her breathing is better. She denies any symptoms of chest pain. She denies any dizziness or palpitation. She denies any nausea. She continues to be at this time on amiodarone 400 mg twice a day, Lipitor 40 mg daily, clonidine 0.1 mg 3 times a day, Plavix 75 mg daily, insulin, isosorbide mononitrate 30 mg daily, metoprolol tartrate 25 mg twice a day. PHYSICAL EXAMINATION: Blood pressure 144/60 with a heart rate in the 60s. LUNGS: Decreased air exchange at the bases. HEART: S1, S2. No S3, with systolic murmur. No diastolic murmur. ABDOMEN: Soft, nontender. EXTREMITIES: No significant edema. LAB DATA: BUN and creatinine 61 and 2.39, which have improved compared to yesterday. IMPRESSION: 1. Heart failure, improved, with improved breathing with a mildly impaired left ventricular systolic function, status post thoracentesis. 2. Status post coronary artery bypass grafting. 3. Pulmonary hypertension. 4. Chronic obstructive pulmonary disease. 5. Paroxysmal atrial fibrillation. 6. Chronic kidney disease. RECOMMENDATIONS: She will continue on present therapy. We will follow her kidney function and her breathing, and depending on that, further recommendations will be made. MMODL / IJN: [id number] /
[2018-09-07 18:00] LABS: Glucose,Whole Blood 97 mg/dL (75-99)
[2018-09-07] MEDS: SODIUM CHLORIDE 0.9% 1,000 ML IV SCH (18:28)
[2018-09-07 20:35] LABS: Glucose,Whole Blood 116 mg/dL (75-99)
[2018-09-07] MEDS: ATORVASTATIN 40 MG TAB PO SCH (20:49)
[2018-09-07] MEDS: INSULIN DETEMIR 100 UNIT/ML 10 ML VIAL SQ SCH (20:50)
--- NOTE | 2018-09-08 00:05 | PN ---
PROGRESS NOTE DATE OF SERVICE: September 07, 2018. PRESENT COMPLAINT: Tired. INTERVAL HISTORY: Patient is pretty much bed bound for prior stroke, presented with acute pulmonary edema, was admitted from August 26 through . Now tolerating a diet. Also has been in acute renal failure from diuresis. The patient's daughter, son-in-law, is present. REVIEW OF SYSTEMS: Attempted for constitutional, cardiovascular, GI, pulmonary; relevant findings as above. CURRENT MEDICATIONS: Reviewed. PHYSICAL EXAMINATION: VITAL SIGNS: Temperature 97.8 pulse, respirations 16, blood pressure 140/69, pulse ox 97% on nasal cannula. GENERAL APPEARANCE: Lying in bed, awake. Answers simple questions. EYES: Pupils equal. Conjunctivae normal. HEENT: External appearance of nose and ears normal. Oral cavity normal. NECK: JVD unable to assess. Mass not palpable. RESPIRATORY: Effort normal. Lungs decreased breath sounds. CARDIOVASCULAR: Heart sounds irregularly irregular. No edema. ABDOMEN: Soft, nontender. Liver and spleen not palpable. PSYCHIATRY: Does answer simple questions. NEUROLOGICAL: Speech is staggered on baseline. Power on the right side is 3 x 5. Patient with right extremity brace. INVESTIGATIONS: BUN 61, creatinine 2.39. ASSESSMENT: 1. Acute flash pulmonary edema causing acute hypoxic respiratory failure requiring ventilator support from congestive heart failure from diastolic dysfunction. EF 55%. Now patient is off the ventilator. 2. Persistent atrial fibrillation with rapid ventricular rate on presentation, now controlled. 3. Recent right ankle fracture with medial malleolus and fibula fracture secondary to fall, being managed with a brace. 4. Ischemic stroke in the left middle cerebral artery in a right-handed patient with residual right-sided weakness and dysarthria from recent admission. 5. Coronary artery disease with prior history of coronary bypass. 6. Chronic obstructive pulmonary disease in an ex-smoker. 7. Multi-infarct dementia causing moderate cognitive impairment. 8. Diabetes mellitus type 2, chronically on insulin. 9. Gastroesophageal reflux disease. 10.Hyperlipidemia. 11.Primary osteoarthritis. 12.Chronic kidney disease stage 3 from nephrosclerosis. 13.Chronic low back pain from sciatica. 14.Chronic urine incontinence. 15.Generalized anxiety disorder not otherwise specified. 16.Moderate mitral and tricuspid regurgitation, nonrheumatic. 17.Severe secondary pulmonary hypertension. 18.Acute bilateral pleural effusion from congestive heart failure, status post bilateral thoracentesis. 19.Acute renal failure from diuresis started to slow down. PLAN: I had a talk with the patient's other daughter today. She and her sister both wish the patient to remain full code and that will be maintained. In the meantime, continue current medication and treatment plan looking at possibly back to the ECF on Sunday. GIULIA / ASIF: [id number] /
[2018-09-08 07:31] LABS: Glucose,Whole Blood 72 mg/dL (75-99)
[2018-09-08 07:43] LABS: Calcium 8.5 mg/dL (8.4-10.2); Potassium 3.7 mmol/L (3.5-5.1)
[2018-09-08] MEDS: IPRATROPIUM-ALBUTEROL 3 ML NEB INHALATION SCH ×3 (08:03→20:51)
[2018-09-08] MEDS: INSULIN ASPART 100 UNIT/ML 1 ML 10 ML VIAL SQ SCH ×4 (08:30→20:33)
[2018-09-08] MEDS: ACETAMINOPHEN TAB 500 MG TAB PO PRN (08:43)
[2018-09-08] MEDS: PANTOPRAZOLE 40 MG TABLET PO SCH ×2 (08:45→19:05)
[2018-09-08] MEDS: ONDANSETRON 4 MG TAB PO SCH ×3 (08:45→19:05)
[2018-09-08] MEDS: ALLOPURINOL 100 MG TAB PO SCH (08:50)
[2018-09-08] MEDS: CLOPIDOGREL 75 MG TAB PO SCH (08:51)
[2018-09-08] MEDS: ISOSORBIDE MONONITRATE ER 30 MG TAB.ER.24H PO SCH (08:51)
[2018-09-08] MEDS: METOPROLOL TARTRATE 25 MG TAB PO SCH ×2 (08:51→20:30)
[2018-09-08] MEDS: AMIODARONE 200 MG TAB PO SCH ×2 (08:51→20:31)
[2018-09-08] MEDS: cloNIDine HCL 0.1 MG TAB PO SCH ×3 (08:51→21:52)
[2018-09-08] MEDS: CYANOCOBALAMIN-FA-PYRIDOXINE 1 EACH TAB PO SCH (09:48)
[2018-09-08] MEDS: PARoxetine 10 MG TAB PO SCH (09:48)
[2018-09-08 12:48] LABS: Glucose,Whole Blood 92 mg/dL (75-99)
--- NOTE | 2018-09-08 15:08 | P.PN ---
Subjective This is a pleasant 73-year-old female past medical history significant for coronary artery disease status post bypass grafting, CVA, chronic kidney disease, hypertension and mild dementia. Most recent echocardiogram performed revealed mildly impaired left ventricular systolic function with ejection fraction 45-50% with moderate mitral regurgitation and moderate to severe tricuspid regurgitation. She has been in the hospital with symptoms of shortness of breath secondary to congestive heart failure with acute hypoxic respiratory failure. She was extubated 1019. She states she is slowly starting to feel a bit better every day. Currently maintained on amiodarone 200 mg twice a day, atorvastatin 40 mg daily, clonidine 0.1 mg 3 times a day, Plavix 75 mg daily, hydralazine 25 mg twice a day, Imdur 30 mg daily and metoprolol 25 mg twice a day. Laboratory data reviewed, sodium 134, potassium 3.7, creatinine 1.81. GENERAL: Well-appearing, well-nourished and in no acute distress. Obese. NECK: Supple without JVD or thyromegaly. LUNGS: Respiration equal and unlabored. Diminished bilaterally. Faint bibasilar rales. No wheezes or rhonchi. HEART: Regular rate and rhythm with systolic ejection murmur at the left sternal border, rubs or gallops. S1 and S2 heard. EXTREMITIES: Normal range of motion, no edema. No clubbing or cyanosis. Peripheral pulses intact. Brace to the right lower extremity. ASSESSMENT Acute on chronic systolic heart failure, ejection fraction 45-50% History of coronary artery disease status post bypass grafting Pulmonary hypertension, RVSP 70 mmHg COPD Paroxysmal atrial fibrillation not on residential anticoagulation secondary to anemia. Currently maintaining sinus mechanism. Chronic kidney disease Anemia status post 1 unit packed red blood cell transfusion PLAN Continue current medical regimen. Diuretics currently on hold secondary to kidney function. This is improving slowly. Continues to maintain sinus mechanism. Amiodarone was titrated down 09/07 to 200 mg BID. Can be titrated again to 200 mg daily 09/14. We will continue to follow and make recommendations accordingly. Nurse Practitioner note has been reviewed, I agree with a documented findings and plan of care. Patient was seen and examined. Objective - Vital Signs Vital signs: Vital Signs Temp 98.1 F 09/08/18 07:24 Pulse 68 09/08/18 14:05 Resp 16 09/08/18 07:24 BP 150/60 09/08/18 08:29 Pulse Ox 93 L 09/08/18 08:03 Intake & Output 09/07/18 09/08/18 09/08/18 18:59 06:59 18:59 Intake Total 160 320 185 Balance 160 320 185 Intake: IV 160 320 Sodium Chloride 0.9% 1, 160 320 000 ml @ 20 mls/hr IV . Q24H [facility] Rx#:[id number] Oral 0 185 Other: Voiding Method Diaper Incontinent Bedpan Incontinent Diaper Incontinent # Voids 4 2 2 ABP, PAP, CO, CI - Last Documented Arterial Blood Pressure 90/76 - Labs CBC & Chem 7: 09/06/18 04:45 09/08/18 07:06 Labs: Abnormal Lab Results - Last 24 Hours (Table) 09/07/18 09/08/18 09/08/18 Range/Units 20:22 07:06 07:20 Sodium 134 L (137-145) mmol/L BUN 52 H (7-17) mg/dL Creatinine 1.81 H (0.52-1.04) mg/dL Glucose 65 L (74-99) mg/dL POC Glucose (mg/dL) 116 H 72 L (75-99) mg/dL Microbiology - Last 24 Hours (Table) 09/03/18 12:30 Gram Stain - Final Pleural Fluid Body Fluid Culture - Final
--- NOTE | 2018-09-08 15:45 | P.PN ---
Subjective Progress Note Date: 09/08/18 On 09/08/2018, the patient in the medical floor. She is doing well. No specific complaints. No respiratory difficulties. No cough sputum production chest answer wheezing. There are function continues to improve. The patient is post bilateral thoracentesis with significant improvement rest her status. She is currently on room air maintaining a saturation above 90%. He is tolerating her diet. She has some mild dementia however on today's evaluation she was felt to be appropriate. She has history of congestion heart failure. She is post ventilator-dependent history failure and she was extubated on 2017. She is on amiodarone 200 mg twice a day regarding her paroxysmal atrial fibrillation and she is also on no anticoagulation. She has maintained a normal sinus mechanism. Hemoglobin is stable. She is off diuretics as the kidney function continues to improve. She is post bilateral thoracentesis. The fluid was transudate. Her most recent hemoglobin as 7.4. Objective - Vital Signs Vital signs: Vital Signs Temp 98.1 F 09/08/18 07:24 Pulse 68 09/08/18 14:05 Resp 16 09/08/18 07:24 BP 150/60 09/08/18 08:29 Pulse Ox 93 L 09/08/18 08:03 Intake & Output 09/07/18 09/08/18 09/08/18 18:59 06:59 18:59 Intake Total 160 320 185 Balance 160 320 185 Intake: IV 160 320 Sodium Chloride 0.9% 1, 160 320 000 ml @ 20 mls/hr IV . Q24H [facility] Rx#:[id number] Oral 0 185 Other: Voiding Method Diaper Incontinent Bedpan Incontinent Diaper Incontinent # Voids 4 2 2 ABP, PAP, CO, CI - Last Documented Arterial Blood Pressure 90/76 - Exam No acute distress, awake and alert, with nasal O2 in place. She looks relatively comfortable. HEENT examination is grossly unremarkable. Mucous membranes are moist. Neck supple. Full range of motion. No adenopathy thyromegaly or neck vein distention. Cardiovascular examination reveals regular rhythm rate. S1-S2 normal. No S3 or S4. No discernible murmur noted. Heart sounds are distant. Lungs reveal coarse bilateral crackles and rhonchi. Breath sounds are diminished throughout. The patient continues to have dullness in her left base. There is also bibasilar crackles. Air entry is significantly improved on the right. Abdomen soft and bowel sounds are heard. No masses or tenderness. Extremities are intact. No cyanosis clubbing or edema. The patient is wearing a boot in the right lower extremity. Adequate pulses in lower extremities bilaterally. No cyanosis. No clubbing. The patient is awaiting an immobilizing boot regarding the ankle fracture. Skin is without rash or lesion.Examination of the skin revealed no evidence of significant rashes, suspicious appearing nevi or other concerning lesions. Neurologic examination is nonfocal. She does move all 4 extremities, right side is weak compared to the left. The previous CVA. - Labs CBC & Chem 7: 09/06/18 04:45 09/08/18 07:06 Labs: Abnormal Lab Results - Last 24 Hours (Table) 09/07/18 09/08/18 09/08/18 Range/Units 20:22 07:06 07:20 Sodium 134 L (137-145) mmol/L BUN 52 H (7-17) mg/dL Creatinine 1.81 H (0.52-1.04) mg/dL Glucose 65 L (74-99) mg/dL POC Glucose (mg/dL) 116 H 72 L (75-99) mg/dL Microbiology - Last 24 Hours (Table) 09/03/18 12:30 Gram Stain - Final Pleural Fluid Body Fluid Culture - Final Assessment and Plan Plan: Assessment 1 Acute hypoxemic respiratory failure, secondary to CHF/pulmonary edema and complicated by atrial fibrillation/RVR in a patient with an echocardiogram showing ejection fraction of 40-45%, requiring intubation and mechanical ventilation on August 26. The patient was extubated on 08/30/2018. Following that, the patient had bilateral thoracentesis and evacuation of the large amount of pleural effusion bilaterally and the fluid was a transudate. Currently she is off diuretics knowing that she has developed a component of acute kidney injury while being on aggressive diuretic regimen. Her kidney function continues to improve in the creatinine is down to 1.8. Clinically she is feeling much better. She is less short of breath. 2 acute hypoxic respiratory failure, requiring intubation mechanical ventilation , Status post extubation from mechanical ventilation on August 30, currently she is improved and the patient underwent a right-sided thoracentesis, left- sided thoracentesis pending and the patient is currently on 2 L of oxygen by nasal cannula. 3 CHF with systolic heart failure, chronic in addition to severe pulmonary hypertension by echocardiogram. 4 bilateral pleural effusions , post thoracenteses bilateral 5 Metabolic alkalosis, s recovered and the serum bicarb is down to 28 6 History of CVA involving the left middle cerebral artery with minimal residual right-sided weakness 7 Type 2 diabetes 8 COPD 9 Multi-infarct dementia 10 Benign essential hypertension 11 Stage III chronic kidney disease 12 Generalized anxiety disorder 13 GERD 14 Hyperlipidemia 15 History of recent ankle fracture 16 acute kidney injury. The patient is improving and the patient is currently off diuretics and the kidney functions improved and the creatinine is down to 1.8 pLAN Suggest continuing aggressive pulmonary toileting. Uses the incentive spirometer. Management of CHF per cardiology. The Lasix can be resumed once the patient's renal function further stabilizes and normalizes. The patient is on no anticoagulants. She is in sinus mechanism. She is on amiodarone. Were looking to transfer this patient to ECF as the patient is unable to ambulate due to an ankle fracture. Long-term prognosis poor baseline above-mentioned comorbidities.
[2018-09-08] MEDS: SODIUM CHLORIDE 0.9% 1,000 ML IV SCH (17:10)
[2018-09-08 17:51] LABS: Glucose,Whole Blood 123 mg/dL (75-99)
[2018-09-08] MEDS: diphenhydrAMINE 25 MG CAP PO PRN (19:05)
[2018-09-08 20:18] LABS: Glucose,Whole Blood 161 mg/dL (75-99)
[2018-09-08] MEDS: hydrALAZINE HCL 25 MG TAB PO SCH (20:30)
[2018-09-08] MEDS: ATORVASTATIN 40 MG TAB PO SCH (20:31)
--- NOTE | 2018-09-08 20:51 | PN ---
PROGRESS NOTE DATE OF SERVICE: 09/08/18 PRESENTING COMPLAINT: Tired. INTERVAL HISTORY: This is a patient who is pretty much bed-bound with prior strokes. She presented with acute pulmonary edema, was intubated from August 26 to . Tolerating a diet. Comfortable. Also had acute renal failure from diuresis that is slowly coming down. The patient is not currently hungry. REVIEW OF SYSTEMS: Done for constitutional, cardiovascular, GI, pulmonary; relevant findings as above. CURRENT MEDICATIONS: Reviewed. PHYSICAL EXAMINATION: Temperature 97.8, pulse 60, respirations 16, blood pressure 186/65, pulse ox 92 percent on room air. Further blood pressure is 150/60. GENERAL APPEARANCE: Lying in bed comfortable. EYES: Pupils equal. Conjunctivae normal. HEENT: External appearance of nose and ears normal. Oral cavity normal. NECK: JVD unable to assess. Mass not palpable. RESPIRATORY: Effort normal. Lungs decreased breath sounds. CARDIOVASCULAR: Heart sounds irregular. No edema. ABDOMEN: Soft, nontender. Liver and spleen not palpable. PSYCHIATRY: Answering simple questions. NEUROLOGICAL: Speech is staggered. Power on the right side is 3 x 5. Patient with right lower extremity brace. INVESTIGATIONS: BUN 52, creatinine 1.81, glucose was 65 and 72. ASSESSMENT: 1. Acute flash pulmonary edema causing acute hypoxic respiratory failure requiring ventilator support from congestive heart failure from diastolic dysfunction, EF 55%. 2. Persistent atrial fibrillation with rapid ventricular rate on presentation, now controlled. 3. Recent right ankle fracture with medial malleolar fracture secondary to fall, being managed with a brace. 4. Ischemic stroke in the left renal artery in a right-handed patient with resultant right-sided weakness and dysarthria from recent admission. 5. Coronary artery disease with prior history of coronary bypass. 6. Chronic obstructive pulmonary disease in ex smoker. 7. Multi-infarct dementia causing moderate cognitive impairment. The patient is able to carry on a simple conversation. 8. Diabetes mellitus type 2, chronically on insulin. 9. Gastroesophageal reflux disease. 10.Hyperlipidemia. 11.Primary osteoarthritis. 12.Chronic kidney disease stage 3 from nephrosclerosis. 13.Chronic low back pain from sciatica. 14.Chronic urine incontinence. 15.Anxiety disorder, not otherwise specified. 16.Moderate mitral and tricuspid regurgitation, nonrheumatic. 17.Severe secondary pulmonary hypertension. 18.Acute bilateral pleural effusion from congestive heart failure, status post bilateral thoracentesis. 19.Acute renal failure from diuresis, improving. 20.CODE STATUS: FULL CODE. PLAN: Continue current medication and treatment plan. The patient's blood pressure is fluctuating. Will keep a close eye at the same. Overall prognosis is guarded. We will decrease patient's Levemir to 20 units as oral intake is fluctuating. MMODL / IJN: [id number] /
[2018-09-08] MEDS: INSULIN DETEMIR 100 UNIT/ML 10 ML VIAL SQ SCH (21:51)
[2018-09-09 07:27] LABS: Glucose,Whole Blood 102 mg/dL (75-99)
[2018-09-09] MEDS: INSULIN ASPART 100 UNIT/ML 1 ML 10 ML VIAL SQ SCH ×4 (07:43→21:36)
[2018-09-09] MEDS: ISOSORBIDE MONONITRATE ER 30 MG TAB.ER.24H PO SCH (08:33)
[2018-09-09] MEDS: PARoxetine 10 MG TAB PO SCH (08:33)
[2018-09-09] MEDS: ALLOPURINOL 100 MG TAB PO SCH (08:33)
[2018-09-09] MEDS: CLOPIDOGREL 75 MG TAB PO SCH (08:33)
[2018-09-09] MEDS: ONDANSETRON 4 MG TAB PO SCH ×3 (08:33→18:22)
[2018-09-09] MEDS: AMIODARONE 200 MG TAB PO SCH (08:34)
[2018-09-09] MEDS: CYANOCOBALAMIN-FA-PYRIDOXINE 1 EACH TAB PO SCH (08:34)
[2018-09-09] MEDS: PANTOPRAZOLE 40 MG TABLET PO SCH ×2 (08:34→18:22)
[2018-09-09] MEDS: METOPROLOL TARTRATE 25 MG TAB PO SCH (08:34)
[2018-09-09] MEDS: cloNIDine HCL 0.1 MG TAB PO SCH ×3 (08:34→21:37)
[2018-09-09] MEDS: hydrALAZINE HCL 25 MG TAB PO SCH ×2 (08:34→21:37)
[2018-09-09] MEDS: IPRATROPIUM-ALBUTEROL 3 ML NEB INHALATION SCH ×3 (08:35→21:49)
[2018-09-09 10:14] LABS: Calcium 8.7 mg/dL (8.4-10.2); Potassium 3.7 mmol/L (3.5-5.1)
[2018-09-09 10:45] VITALS: BMI 32.8
[2018-09-09 11:33] LABS: Glucose,Whole Blood 124 mg/dL (75-99)
[2018-09-09] MEDS: ACETAMINOPHEN TAB 500 MG TAB PO PRN ×2 (12:49→18:22)
[2018-09-09 17:19] LABS: Glucose,Whole Blood 140 mg/dL (75-99)
[2018-09-09] MEDS: SODIUM CHLORIDE 0.9% 1,000 ML IV SCH (18:23)
[2018-09-09] MEDS ORDERED: FUROSEMIDE 40 MG TAB PO SCH (19:00)
--- NOTE | 2018-09-09 19:03 | PN ---
PROGRESS NOTE DATE OF SERVICE: 09/09/2018 PRESENTING COMPLAINT: Tired. INTERVAL HISTORY: This is a patient who is bed-bound with prior strokes. She presented with acute pulmonary edema, was intubated from August 26 to . Tolerating a diet. Comfortable. She also had acute renal failure from diuresis, and diuretics have been held off. Renal function is slowly improving. REVIEW OF SYSTEMS: Done for constitutional, cardiovascular, GI, pulmonary; relevant findings as above. CURRENT MEDICATIONS: Reviewed. PHYSICAL EXAMINATION: Temperature 98.1, pulse 56, respiration 16, blood pressure 143/50, pulse ox 93% on 2 L. Blood pressure was high later. GENERAL APPEARANCE: Lying in bed, comfortable. EYES: Pupils equal. Conjunctivae normal. HEENT: External appearance of nose and ears normal. Oral cavity normal. NECK: JVD unable to assess. Mass not palpable. RESPIRATORY: Effort normal. LUNGS: Decreased breath sounds. CARDIOVASCULAR: Heart sounds irregular. No edema. ABDOMEN: Soft, nontender. Liver and spleen not palpable. PSYCHIATRY: Answering simple questions. NEUROLOGICAL: Speech is staggered. Power on the right side is 3/5. Patient has a right lower extremity brace. INVESTIGATIONS: BUN 43, creatinine 1.61. Accu-Cheks are noted. ASSESSMENT: 1. Acute flash pulmonary edema causing acute hypoxic respiratory failure requiring ventilator support from congestive heart failure from diastolic dysfunction, ejection fraction 55%. 2. Persistent atrial fibrillation with rapid ventricular rate on presentation, now better controlled. 3. Recent right ankle fracture with medial malleolar and fibula fracture secondary to fall, being managed with a brace. 4. Ischemic stroke in the left cerebral artery in a right-handed patient with resultant right-sided weakness and dysarthria from recent admission. 5. Coronary artery disease with prior history of coronary artery bypass. 6. Chronic obstructive pulmonary disease in an ex-smoker. 7. Multi-infarct dementia causing moderate cognitive impairment. Patient is able to carry on a simple conversation. 8. Diabetes mellitus, type 2, chronically on insulin. 9. Gastroesophageal reflux disease. 10.Hyperlipidemia. 11.Primary osteoarthritis. 12.Chronic kidney disease, stage III, from nephrosclerosis. 13.Chronic low back pain from sciatica. 14.Chronic urine incontinence. 15.Anxiety disorder not otherwise specified. 16.Moderate mitral and tricuspid regurgitation, non-rheumatic. 17.Severe secondary pulmonary hypertension. 18.Acute bilateral pleural effusion from congestive heart failure, status post bilateral thoracentesis. 19.Acute renal failure from diuresis, improving. 20.CODE STATUS: FULL CODE. PLAN: Will start the patient on Lasix later today. Patient will have to be kept in negative fluid balance, given that she goes into recurrent flash pulmonary edema. Will look at the renal function tomorrow. If it remains good, she will be able to be discharged to the [facility] tomorrow. GIULIA / ORLINN: [id number] /
[2018-09-09 21:00] LABS: Glucose,Whole Blood 199 mg/dL (75-99)
[2018-09-09] MEDS: INSULIN DETEMIR 100 UNIT/ML 10 ML VIAL SQ SCH (21:36)
[2018-09-09] MEDS: ATORVASTATIN 40 MG TAB PO SCH (21:37)
[2018-09-09] MEDS: BISACODYL 10 MG SUPP RECTAL PRN (21:42)
[2018-09-10] MEDS: AMIODARONE 200 MG TAB PO SCH ×2 (00:02→10:16)
[2018-09-10] MEDS: METOPROLOL TARTRATE 25 MG TAB PO SCH ×2 (00:02→10:16)
[2018-09-10] MEDS: ACETAMINOPHEN TAB 500 MG TAB PO PRN ×3 (00:03→16:38)
[2018-09-10 07:12] LABS: Glucose,Whole Blood 75 mg/dL (75-99)
[2018-09-10] MEDS: IPRATROPIUM-ALBUTEROL 3 ML NEB INHALATION SCH ×2 (08:31→14:11)
[2018-09-10 09:08] LABS: Calcium 8.3 mg/dL (8.4-10.2); Potassium 3.6 mmol/L (3.5-5.1)
[2018-09-10 09:19] VITALS: RESP 18
[2018-09-10] MEDS: ISOSORBIDE MONONITRATE ER 30 MG TAB.ER.24H PO SCH (10:15)
[2018-09-10] MEDS: PANTOPRAZOLE 40 MG TABLET PO SCH ×2 (10:15→16:38)
[2018-09-10] MEDS: INSULIN ASPART 100 UNIT/ML 1 ML 10 ML VIAL SQ SCH ×3 (10:15→18:55)
[2018-09-10] MEDS: ONDANSETRON 4 MG TAB PO SCH ×3 (10:16→16:38)
[2018-09-10] MEDS: CLOPIDOGREL 75 MG TAB PO SCH (10:16)
[2018-09-10] MEDS: CYANOCOBALAMIN-FA-PYRIDOXINE 1 EACH TAB PO SCH (10:16)
[2018-09-10] MEDS: FUROSEMIDE 40 MG TAB PO SCH ×2 (10:16→16:38)
[2018-09-10] MEDS: hydrALAZINE HCL 25 MG TAB PO SCH (10:16)
[2018-09-10] MEDS: ALLOPURINOL 100 MG TAB PO SCH (10:16)
[2018-09-10] MEDS: cloNIDine HCL 0.1 MG TAB PO SCH ×2 (10:17→16:39)
[2018-09-10 11:28] LABS: Glucose,Whole Blood 138 mg/dL (75-99)
[2018-09-10] MEDS: PARoxetine 10 MG TAB PO SCH (13:42)
--- NOTE | 2018-09-10 15:37 | DS ---
DISCHARGE SUMMARY DATE OF ADMISSION: 08/22/2018 DATE OF DISCHARGE: 09/10/2018 FINAL DIAGNOSES: 1. Acute flash pulmonary edema causing acute hypoxic respiratory failure requiring ventilator support from congestive heart failure from diastolic dysfunction, ejection fraction 55%. 2. Persistent atrial fibrillation rapid ventricular rate on presentation, now better controlled. 3. Recent right ankle fracture with medial malleolar and fibula fracture secondary to fall, being managed with a brace. 4. Ischemic stroke in the left cerebral artery in a right-handed patient with resultant right-sided weakness with dysarthria from recent admission. 5. Coronary artery disease with prior history of coronary artery bypass. 6. Chronic obstructive pulmonary disease in an ex-smoker. 7. Multi-infarct dementia causing moderate cognitive impairment. Patient is able to carry on a simple conversation. 8. Diabetes mellitus type 2, chronically on insulin. 9. Gastroesophageal reflux disease. 10.Hyperlipidemia. 11.Primary osteoarthritis. 12.Chronic kidney disease stage III from nephrosclerosis. 13.Chronic low back pain from sciatica. 14.Chronic urine incontinence. 15.Anxiety disorder, not otherwise specified. 16.Moderate mitral and tricuspid regurgitation, nonrheumatic. 17.Severe secondary pulmonary hypertension. 18.Acute bilateral pleural effusion from congestive heart failure, status post bilateral thoracentesis. 19.Acute renal failure from diuresis. 20.CODE STATUS: FULL CODE. CONSULTATIONS: 1. Dr. Grider from Pulmonary Critical Care. 2. Dr. Pulido from Cardiology. HOSPITAL COURSE: This patient yet again presented with acute flash pulmonary edema from stiff ventricles from acute congestive heart failure exacerbation, EF 55%-60%. Patient was intubated from August 26 to , extubated. Patient has a baseline, has got weakness on the right side, power is 3/5 and speech is slow. Patient had bilateral thoracentesis carried out. The patient has to be kept in negative fluid balance. I did speak to the patient's brother and daughter who wish the patient to continue remaining FULL CODE and code status. The patient is picky about her food. PHYSICAL EXAMINATION: Temperature 97.8, pulse 60, respiration 18, blood pressure 164/56, pulse ox 94% on 2 L. GENERAL APPEARANCE: Lying in bed, awake. EYES: Pupils equal, conjunctivae are normal. NECK: JVD unable to assess. RESPIRATORY: Effort normal. LUNGS: Decreased breath sounds. CARDIOVASCULAR: Heart sounds irregular. Patient able to answer simple questions. INVESTIGATIONS: Potassium 3.6, BUN 37, creatinine 1.72. DISCHARGE MEDICATIONS: 1. Vitamin D2 fifty thousand units p.o. every 14 days. 2. Melatonin 3 mg q.h.s. p.r.n. 3. Tylenol 1000 mg q.6 p.r.n. 4. Artificial Tears 1 drop to both eyes daily. 5. Allopurinol 100 mg p.o. daily. 6. Rocaltrol 0.25 mcg p.o. Sunday, , Sunday. 7. Zofran 4 mg p.o. a.c. t.i.d. 8. Kenalog 0.1% topical b.i.d. p.r.n. 9. Lipitor 40 mg p.o. q.h.s. 10.Plavix 75 mg p.o. daily. 11.Paxil 10 mg p.o. daily. 12.Folbic 1 tablet p.o. daily. 13.NovoLog per protocol. 14.Senokot S 1 tablet p.o. daily. 15.Protonix 40 mg a.c. b.i.d. 16.Catapres 0.1 mg p.o. t.i.d. 17.DuoNeb t.i.d. 18.Cordarone 200 mg p.o. b.i.d. 19.Dulcolax 10 mg rectal daily p.r.n. 20.Lasix 40 mg b.i.d. 21.Lantus 22 units subcu q.h.s. 22.Imdur ER 30 mg p.o. daily/. 23.Lopressor 25 mg p.o. b.i.d. 24.Klonopin 0.5 mg p.o. t.i.d. 25.Hydralazine 25 mg p.o. b.i.d. [facility] FOLLOWUP: Follow up with Dr. Robbins. The patient to keep her previous appointment. CODE STATUS: DNR. LABS: CBC, BMP in 3 days. MMODL / IJN: [id number] /
[2018-09-10 16:37] VITALS: BP 179/50; PULSE 65; TEMP 98.5
[2018-09-10] MEDS: SODIUM CHLORIDE 0.9% 1,000 ML IV SCH (16:39)
[2018-09-10] MEDS: diphenhydrAMINE 25 MG CAP PO PRN (16:42)
[2018-09-10 17:09] LABS: Glucose,Whole Blood 143 mg/dL (75-99)
== END 2018-09-10 19:27 | DRG 291 ==
LOC: EC 10:05 → 6ICU 13:40 → 6SEL 08-23 07:56 → 6ICU 08-23 13:45 → 2SICU 08-25 09:58 → 4SSUR 09-06 14:02
PROVIDERS: ADMIT Hospitalist; ATTEND Hospitalist
PROC: 5A09457 Assistance with Respiratory Ventilation, 24-96 Consecutive Hours, Continuous Positive Airway Pressure (ICD-10-PCS; 2018-08-22)
PROC: 5A1955Z Respiratory Ventilation, Greater than 96 Consecutive Hours (ICD-10-PCS; principal; 2018-08-26)
PROC: 0BH17EZ Insertion of Endotracheal Airway into Trachea, Via Natural or Artificial Opening (ICD-10-PCS; 2018-08-26)
PROC: 02HV33Z Insertion of Infusion Device into Superior Vena Cava, Percutaneous Approach (ICD-10-PCS; 2018-08-26)
PROC: 03HY32Z Insertion of Monitoring Device into Upper Artery, Percutaneous Approach (ICD-10-PCS; 2018-08-26)
PROC: 4A133B1 Monitoring of Arterial Pressure, Peripheral, Percutaneous Approach (ICD-10-PCS; 2018-08-26)
PROC: 4A133J1 Monitoring of Arterial Pulse, Peripheral, Percutaneous Approach (ICD-10-PCS; 2018-08-26)
PROC: 0D9670Z Drainage of Stomach with Drainage Device, Via Natural or Artificial Opening (ICD-10-PCS; 2018-08-26)
PROC: 3E0G76Z Introduction of Nutritional Substance into Upper GI, Via Natural or Artificial Opening (ICD-10-PCS; 2018-08-26)
PROC: 30233N1 Transfusion of Nonautologous Red Blood Cells into Peripheral Vein, Percutaneous Approach (ICD-10-PCS; 2018-09-01)
PROC: 0W993ZX Drainage of Right Pleural Cavity, Percutaneous Approach, Diagnostic (ICD-10-PCS; 2018-09-03)
PROC: 0W9B3ZZ Drainage of Left Pleural Cavity, Percutaneous Approach (ICD-10-PCS; 2018-09-05)
DX: I13.0 Hypertensive heart and chronic kidney disease with heart failure and stage 1 through stage 4 chronic kidney disease, or unspecified chronic kidney disease (principal); I50.33 Acute on chronic diastolic (congestive) heart failure; J69.0 Pneumonitis due to inhalation of food and vomit; J96.01 Acute respiratory failure with hypoxia; I69.351 Hemiplegia and hemiparesis following cerebral infarction affecting right dominant side; I47.1 Supraventricular tachycardia; I48.1 Persistent atrial fibrillation; J44.1 Chronic obstructive pulmonary disease with (acute) exacerbation; E87.3 Alkalosis; N17.9 Acute kidney failure, unspecified; J91.8 Pleural effusion in other conditions classified elsewhere; Z66 Do not resuscitate; E11.22 Type 2 diabetes mellitus with diabetic chronic kidney disease; I27.29 Other secondary pulmonary hypertension; I08.1 Rheumatic disorders of both mitral and tricuspid valves; D63.1 Anemia in chronic kidney disease; F01.50 Vascular dementia, unspecified severity, without behavioral disturbance, psychotic disturbance, mood disturbance, and anxiety; I69.322 Dysarthria following cerebral infarction; I69.328 Other speech and language deficits following cerebral infarction; I69.311 Memory deficit following cerebral infarction; N18.3 Chronic kidney disease, stage 3 (moderate); I42.9 Cardiomyopathy, unspecified; I16.0 Hypertensive urgency; M19.91 Primary osteoarthritis, unspecified site; I25.10 Atherosclerotic heart disease of native coronary artery without angina pectoris; S82.409A Unspecified fracture of shaft of unspecified fibula, initial encounter for closed fracture; S82.891A Other fracture of right lower leg, initial encounter for closed fracture; R40.2142 Coma scale, eyes open, spontaneous, at arrival to emergency department; R40.2362 Coma scale, best motor response, obeys commands, at arrival to emergency department; R40.2252 Coma scale, best verbal response, oriented, at arrival to emergency department; K29.70 Gastritis, unspecified, without bleeding; K21.9 Gastro-esophageal reflux disease without esophagitis; E78.5 Hyperlipidemia, unspecified; R32 Unspecified urinary incontinence; G89.29 Other chronic pain; F41.1 Generalized anxiety disorder; E87.6 Hypokalemia; E66.9 Obesity, unspecified; Z68.33 Body mass index [BMI] 33.0-33.9, adult; M54.40 Lumbago with sciatica, unspecified side; M10.9 Gout, unspecified; T50.2X5A Adverse effect of carbonic-anhydrase inhibitors, benzothiadiazides and other diuretics, initial encounter; Z79.02 Long term (current) use of antithrombotics/antiplatelets; Z79.4 Long term (current) use of insulin; Z79.899 Other long term (current) drug therapy; Z86.010 Personal history of colon polyps; Z95.1 Presence of aortocoronary bypass graft; Z86.79 Personal history of other diseases of the circulatory system; Z87.891 Personal history of nicotine dependence; Z87.19 Personal history of other diseases of the digestive system; Z74.01 Bed confinement status; Z90.710 Acquired absence of both cervix and uterus; Z85.828 Personal history of other malignant neoplasm of skin; Z98.42 Cataract extraction status, left eye; Z98.41 Cataract extraction status, right eye; Z96.1 Presence of intraocular lens; Z88.8 Allergy status to other drugs, medicaments and biological substances; Z82.49 Family history of ischemic heart disease and other diseases of the circulatory system; Z87.01 Personal history of pneumonia (recurrent); Z82.3 Family history of stroke
CPT/HCPCS: 36415; 36600; 51702; 71045; 71046; 80048; 80053; 81001; 82550; 82553; 82805; 82945; 83036; 83615; 83735; 83880; 84100; 84132; 84155; 84157; 84484; 85025; 85027; 85610; 85730; 86850; 86900; 86901; 86920; 87040; 87070; 87205; 87324; 88108; 88305; 88341; 88342; 89050; 93005; 93306; 94002; 94003; 94640; 94660; 94760; 96365; 96366; 96375; 96376; 99291

== ENCOUNTER 2019-07-14 14:29 | Inpatient (IN) | payer MEDICARE, OTHER ==
[2019-07-14] MEDS ORDERED: FUROSEMIDE 10 MG/ML 4 ML VIAL IV STA (14:49)
--- NOTE | 2019-07-14 14:57 | ED ---
General Adult HPI - General Stated complaint: edema Time Seen by Provider: 07/14/19 14:35 Source: patient, RN notes reviewed Limitations: no limitations - History of Present Illness Initial comments: Patient is a pleasant 74-year-old female presenting to the emergency Department with edema. Patient is a overall poor historian however feels her symptoms started just a couple of days ago. Patient does admit to having similar symptoms previously. Patient denies dyspnea however report had question of dyspnea. Patient denies chest discomfort. Patient does admit to occasional fatigue. - Related Data Home Medications Medication Instructions Recorded Confirmed Ergocalciferol [Vitamin D2 50,000 unit PO Q14D 12/04/14 07/14/19 (DRISDOL)] Melatonin 3 mg PO HS PRN 12/04/14 07/14/19 Acetaminophen Tab [Tylenol] 1,000 mg PO Q6HR PRN 07/20/15 07/14/19 Allopurinol [Zyloprim] 100 mg PO DAILY@0600 06/01/17 07/14/19 Calcitriol [Rocaltrol] 0.25 mcg PO MOTHSA 06/01/17 07/14/19 Sennosides-Docusate Sodium 1 tab PO DAILY 08/13/18 07/14/19 [Senokot-S] Ipratropium-Albuterol Nebulize 3 ml INHALATION RT-TID PRN 08/22/18 07/14/19 [Duoneb 0.5 mg-3 mg/3 ml Soln] Ferrous Sulfate [Iron] 325 mg PO HS 12/11/18 07/14/19 Potassium Chloride ER [K-Dur 10] 10 meq PO DAILY 12/11/18 07/14/19 amLODIPine [Norvasc] 5 mg PO DAILY@0600 12/11/18 07/14/19 hydrALAZINE HCL [Apresoline] 25 mg PO TID 12/11/18 07/14/19 Furosemide [Lasix] 40 mg PO HS 12/13/18 07/14/19 Repaglinide [Prandin] 0.5 mg PO DAILY 12/13/18 07/14/19 cloNIDine HCL [Catapres] 0.1 mg PO BID 12/13/18 07/14/19 Atorvastatin [Lipitor] 20 mg PO HS 07/14/19 07/14/19 Clopidogrel [Plavix] 75 mg PO HS 07/14/19 07/14/19 Vavkvnqtettfki-ML-Ptqofjvfqj 1 tab PO DAILY 07/14/19 07/14/19 [Folbic] Furosemide [Lasix] 80 mg PO DAILY 07/14/19 07/14/19 Magnesium Hydroxide [Milk of 2,400 mg PO Q72H PRN 07/14/19 07/14/19 Magnesia] PARoxetine [Paxil] 10 mg PO Q48H 07/14/19 07/14/19 clonazePAM [KlonoPIN] 0.5 mg PO TID 07/14/19 07/14/19 guaiFENesin [guaiFENesin Oral 200 mg PO Q4H PRN 07/14/19 07/14/19 Solution] Previous Rx's Medication Instructions Recorded Pantoprazole [Protonix] 40 mg PO AC-BID tablet. 08/19/18 Amiodarone [Cordarone] 200 mg PO BID tab 09/10/18 Insulin Glargine,Hum.rec.anlog 22 unit SQ HS #0 09/10/18 [Lantus Solostar] Isosorbide Mononitrate ER [Imdur] 30 mg PO DAILY tab.er.24h 09/10/18 Metoprolol Tartrate [Lopressor] 25 mg PO BID tab 09/10/18 Allergies Allergy/AdvReac Type Severity Reaction Status Date / Time benztropine mesylate Allergy Unknown Verified 07/14/19 15:03 [From Cogentin] donepezil [From Aricept] Allergy Unknown Verified 07/14/19 15:03 metoclopramide HCl Allergy Unknown Verified 07/14/19 15:03 [From Reglan] prochlorperazine edisylate Allergy Unknown Verified 07/14/19 15:03 [From Compazine] prochlorperazine maleate Allergy Unknown Verified 07/14/19 15:03 [From Compazine] Review of Systems ROS Statement: Those systems with pertinent positive or pertinent negative responses have been documented in the HPI. ROS Other: All systems not noted in ROS Statement are negative. Constitutional: Denies: fever Eyes: Denies: eye pain ENT: Denies: ear pain Respiratory: Reports: as per HPI. 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 2008 CVA affected balance/coordination/short term memory/ caused chronic nausea and impulsiveness/ pt was trached and had a peg tube, IDDM type II, CKD stage III, problems with potassium levels, low back pain with sciatica, gout in hands/feet, skin cancer with removal, urinary incontinence and occasional diarrhea.uti's, recent rt tib/fib fx wears boot.pul edema History of Any Multi-Drug Resistant Organisms: None Reported Past Surgical History: Back Surgery, Coronary Bypass/CABG, Heart Catheterization, Hysterectomy, Orthopedic Surgery Additional Past Surgical History / Comment(s): Bilateral carotid endarectmy, CVA and had posterior craniotomy/brain surgery to remove blood clot/trach, peg since removed, 2011 CABG 4 vessel, 2 back surgeries, bilateral carpal tunnel releases, bilateral cataract removals/lens implants, colonoscopy with benign polyp, skin cancer removal.egd Past Anesthesia/Blood Transfusion Reactions: No Reported Reaction Smoking Status: Former smoker - Past Family History Mother Family Medical History: CVA/TIA Additional Family Medical History / Comment(s): Mother of a CVA at the age of 47yrs. Father Family Medical History: Myocardial Infarction ([place]) Additional Family Medical History / Comment(s): Father of a [place] around age 60yrs. General Exam Limitations: no limitations General appearance: alert, in no apparent distress Head exam: Present: atraumatic Eye exam: Present: normal appearance, PERRL ENT exam: Present: normal oropharynx Neck exam: Present: normal inspection Respiratory exam: Present: rales (Mild bilateral bases) Cardiovascular Exam: Present: regular rate, normal rhythm GI/Abdominal exam: Present: soft. Absent: tenderness Extremities exam: Present: pedal edema, other (+3 edema bilateral legs and arms.). Absent: calf tenderness Back exam: Present: normal inspection Neurological exam: Present: alert Psychiatric exam: Present: normal affect, normal mood Skin exam: Present: normal color Course Vital Signs 07/14/19 14:45 Temperature 98.9 F Pulse Rate 51 L Respiratory 18 Rate Blood Pressure 180/65 O2 Sat by Pulse 98 Oximetry EKG Findings - EKG Comments: EKG Findings:: Sinus bradycardia at 50. For screening AV block AL of 318. QRS 110. QT 482. QTC 439. Normal axis. Normal QRS. No acute ST change Medical Decision Making - Medical Decision Making Patient reevaluated and resting comfortably in bed. Family updated on results and plan. Case was discussed in detail with Dr. Larios, covering for Dr. Robbins. - Lab Data Result diagrams: 07/14/19 14:45 07/14/19 14:45 Lab Results 07/14/19 07/14/19 07/14/19 Range/Units 14:45 14:45 14:45 WBC 10.5 (3.8-10.6) k/uL RBC 4.28 (3.80-5.40) m/uL Hgb 12.6 (11.4-16.0) gm/dL Hct 40.5 (34.0-46.0) % MCV 94.7 (80.0-100.0) fL MCH 29.4 (25.0-35.0) pg MCHC 31.1 (31.0-37.0) g/dL RDW 17.6 H (11.5-15.5) % Plt Count 205 (150-450) k/uL Neutrophils % 74 % Lymphocytes % 9 % Monocytes % 13 % Eosinophils % 1 % Basophils % 0 % Neutrophils # 7.8 H (1.3-7.7) k/uL Lymphocytes # 0.9 L (1.0-4.8) k/uL Monocytes # 1.4 H (0-1.0) k/uL Eosinophils # 0.1 (0-0.7) k/uL Basophils # 0.0 (0-0.2) k/uL Hypochromasia Slight Anisocytosis Slight PT (9.0-12.0) sec INR (<1.2) APTT (22.0-30.0) sec Sodium 138 (137-145) mmol/L Potassium 4.0 (3.5-5.1) mmol/L Chloride 99 (98-107) mmol/L Carbon Dioxide 30 (22-30) mmol/L Anion Gap 9 mmol/L BUN 45 H (7-17) mg/dL Creatinine 1.81 H (0.52-1.04) mg/dL Est GFR (CKD-EPI)AfAm 31 (>60 ml/min/1.73 sqM) Est GFR (CKD-EPI)NonAf 27 (>60 ml/min/1.73 sqM) Glucose 107 H (74-99) mg/dL Calcium 8.5 (8.4-10.2) mg/dL Total Bilirubin 0.8 (0.2-1.3) mg/dL AST 71 H (14-36) U/L ALT 30 (9-52) U/L Alkaline Phosphatase 148 H (38-126) U/L Troponin I (0.000-0.034) ng/mL NT-Pro-B Natriuret Pep 12997 pg/mL Total Protein 7.2 (6.3-8.2) g/dL Albumin 3.0 L (3.5-5.0) g/dL 07/14/19 07/14/19 Range/Units 14:45 14:45 WBC (3.8-10.6) k/uL RBC (3.80-5.40) m/uL Hgb (11.4-16.0) gm/dL Hct (34.0-46.0) % MCV (80.0-100.0) fL MCH (25.0-35.0) pg MCHC (31.0-37.0) g/dL RDW (11.5-15.5) % Plt Count (150-450) k/uL Neutrophils % % Lymphocytes % % Monocytes % % Eosinophils % % Basophils % % Neutrophils # (1.3-7.7) k/uL Lymphocytes # (1.0-4.8) k/uL Monocytes # (0-1.0) k/uL Eosinophils # (0-0.7) k/uL Basophils # (0-0.2) k/uL Hypochromasia Anisocytosis PT 11.5 (9.0-12.0) sec INR 1.1 (<1.2) APTT 26.1 (22.0-30.0) sec Sodium (137-145) mmol/L Potassium (3.5-5.1) mmol/L Chloride (98-107) mmol/L Carbon Dioxide (22-30) mmol/L Anion Gap mmol/L BUN (7-17) mg/dL Creatinine (0.52-1.04) mg/dL Est GFR (CKD-EPI)AfAm (>60 ml/min/1.73 sqM) Est GFR (CKD-EPI)NonAf (>60 ml/min/1.73 sqM) Glucose (74-99) mg/dL Calcium (8.4-10.2) mg/dL Total Bilirubin (0.2-1.3) mg/dL AST (14-36) U/L ALT (9-52) U/L Alkaline Phosphatase (38-126) U/L Troponin I 0.036 H* (0.000-0.034) ng/mL NT-Pro-B Natriuret Pep pg/mL Total Protein (6.3-8.2) g/dL Albumin (3.5-5.0) g/dL - Radiology Data Radiology results: image reviewed (Chest x-ray shows interstitial prominence consistent with CHF.) Disposition Clinical Impression: CHF (congestive heart failure) Disposition: ADMITTED IP TO THIS HOSP Is patient prescribed a controlled substance at d/c from ED?: No Referrals: Jerel Robbins DO [Primary Care Provider] - 1-2 days Decision Time: 16:16
[2019-07-14 15:30] LABS: Anisocytosis Slight; Basophils % (A) 0 %; Eosinophils # (A) 0.1 k/uL (0-0.7); Eosinophils % (A) 1 %; HCT 40.5 % (34.0-46.0); HGB 12.6 gm/dL (11.4-16.0); Hypochromasia Slight; Lymphocytes # (A) 0.9 k/uL (1.0-4.8); Lymphocytes % (A) 9 %; MCH 29.4 pg (25.0-35.0); MCHC 31.1 g/dL (31.0-37.0); MCV 94.7 fL (80.0-100.0); Mean Platelet Volume 8.5; Monocytes # (A) 1.4 k/uL (0-1.0); Monocytes % (A) 13 %; Neutrophils # (A) 7.8 k/uL (1.3-7.7); Neutrophils % (A) 74 %; Platelet Count 205 k/uL (150-450); RBC 4.28 m/uL (3.80-5.40); RDW 17.6 % (11.5-15.5); WBC 10.5 k/uL (3.8-10.6)
[2019-07-14 15:39] LABS: Calcium 8.5 mg/dL (8.4-10.2); Total Bilirubin 0.8 mg/dL (0.2-1.3); Total Protein 7.2 g/dL (6.3-8.2)
[2019-07-14 15:40] LABS: INR 1.1 (<1.2); Partial Thromboplastin Time 26.1 sec (22.0-30.0); Prothrombin Time 11.5 sec (9.0-12.0)
--- NOTE | 2019-07-14 15:48 | XR ---
EXAMINATION TYPE: XR chest 2V DATE OF EXAM: 07/14/2019 COMPARISON: 09/05/2018 HISTORY: Difficulty breathing TECHNIQUE: Frontal and lateral views of the chest are obtained. FINDINGS: There is improved aeration of the lung bases in comparison to the prior with trace pleural effusions remaining and mild diffuse interstitial prominence. Cardiomediastinal silhouette is enlarg ed with post CABG changes. No sizable pneumothorax. Loose joint bodies are presumed to be present in the left shoulder. These are unchanged from the prior. Diffuse osseous demineralization is seen. IMPRESSION: Improved aeration in comparison to the prior with trace pleural effusions remaining and diffuse interstitial prominence that may be on the basis of interstitial edema and congestive heart f ailure.
[2019-07-14] MEDS ORDERED: ASPIRIN 325 MG TAB PO STA (16:16)
[2019-07-14] MEDS ORDERED: IPRATROPIUM-ALBUTEROL 3 ML NEB INHALATION PRN (16:17)
[2019-07-14] MEDS: NITROGLYCERIN OINT 1 INCH/GM PACKET TOPICAL SCH ×2 (18:12→20:14)
[2019-07-14] MEDS: PANTOPRAZOLE 40 MG TABLET PO SCH (18:12)
[2019-07-14 20:09] LABS: Glucose,Whole Blood 70 mg/dL (75-99)
[2019-07-14] MEDS: CLOPIDOGREL 75 MG TAB PO SCH (20:13)
[2019-07-14] MEDS: AMIODARONE 200 MG TAB PO SCH (20:13)
[2019-07-14] MEDS: METOPROLOL TARTRATE 25 MG TAB PO SCH (20:13)
[2019-07-14] MEDS: ATORVASTATIN 20 MG TAB PO SCH (20:13)
[2019-07-14] MEDS: hydrALAZINE HCL 25 MG TAB PO SCH (20:13)
[2019-07-14] MEDS: cloNIDine HCL 0.1 MG TAB PO SCH (20:13)
[2019-07-14] MEDS: clonazePAM 0.5 MG TAB PO SCH (20:13)
[2019-07-14] MEDS: FUROSEMIDE 10 MG/ML 4 ML VIAL IV SCH (20:14)
[2019-07-14] MEDS ORDERED: INSULIN DETEMIR (LEVEMIR) 100 UNIT/ML SYR SQ SCH (21:00)
[2019-07-15 06:23] LABS: Glucose,Whole Blood 65 mg/dL (75-99)
[2019-07-15] MEDS: FUROSEMIDE 10 MG/ML 4 ML VIAL IV SCH ×2 (06:29→13:49)
[2019-07-15] MEDS: amLODIPine 5 MG TAB PO SCH (06:29)
[2019-07-15] MEDS: PANTOPRAZOLE 40 MG TABLET PO SCH ×2 (06:29→17:16)
[2019-07-15 06:46] LABS: Glucose,Whole Blood 77 mg/dL (75-99)
[2019-07-15] MEDS: METOPROLOL TARTRATE 25 MG TAB PO SCH ×2 (08:04→20:41)
[2019-07-15] MEDS: REPAGLINIDE 1 MG TAB PO SCH (08:17)
[2019-07-15] MEDS: ISOSORBIDE MONONITRATE ER 30 MG TAB.ER.24H PO SCH (08:17)
[2019-07-15] MEDS: PARoxetine 10 MG TAB PO SCH (08:18)
[2019-07-15] MEDS: POTASSIUM CHLORIDE ER 10 MEQ TAB.ER.PRT PO SCH (08:18)
[2019-07-15] MEDS: AMIODARONE 200 MG TAB PO SCH ×2 (08:18→20:41)
[2019-07-15] MEDS: clonazePAM 0.5 MG TAB PO SCH ×3 (08:18→20:41)
[2019-07-15] MEDS: hydrALAZINE HCL 25 MG TAB PO SCH ×3 (08:18→20:40)
[2019-07-15] MEDS: cloNIDine HCL 0.1 MG TAB PO SCH ×2 (08:18→20:41)
--- NOTE | 2019-07-15 08:25 | P.CRDCN ---
History of Present Illness Consult date: 07/15/19 Requesting physician: Tong Larios Consult reason: congestive heart failure Chief complaint: Leg swelling History of present illness: This is a 74-year-old female patient with history of prior CVA, coronary artery disease with prior bypass surgery, COPD, dementia, hypertension, chronic kidney disease, hypertension, osteoarthritis. Who was admitted to the hospital mainly with symptoms of lower extremity edema. According to the patient for the past couple of days she has noticed herself to put on more fluid in her lower extremities. She denies any change in her breathing, states overall that she's been breathing fairly well. Denies any PND or orthopnea. Patient's most recent echocardiogram with Doppler study was performed in August which revealed an ejection fraction of 45-50%, moderate mitral regurg, moderate to severe tricuspid regurg and moderate to severe pulmonary hypertension were noted at that time. Laboratory data was reviewed, white blood cell count 10.5, hemoglobin 12.6, platelet count 205. Sodium 138, potassium 4.0, BUN 45 and creatinine 1.8. Troponin 0.036, BNP level 13,900. Admission Blood pressure 180/60 with a heart rate in the 50s, 98% on room air. Blood pressure this morning 148/60 with a heart rate in the 40s to 50s, 100% on room air. Chest x- ray shows improved aeration in comparison to prior with a trace pleural effusion. EKG shows a sinus bradycardia with a first-degree AV block. At the time of my examination this morning, patient is lying flat in bed, no difficulty in breathing, she just feels tired. She has been initiated on IV Lasix, she does have a good amount of urine in her Peralta catheter bag. 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 2008 CVA affected balance/coordination/short term memory/ caused chronic nausea and impulsiveness/ pt was trached and had a peg tube, IDDM type II, CKD stage III, problems with potassium levels, low back pain with sciatica, gout in hands/feet, skin cancer with removal, urinary incontinence and occasional diarrhea.uti's, recent rt tib/fib fx wears boot.pul edema History of Any Multi-Drug Resistant Organisms: None Reported Past Surgical History: Back Surgery, Coronary Bypass/CABG, Heart Catheterization, Hysterectomy, Orthopedic Surgery Additional Past Surgical History / Comment(s): Bilateral carotid endarectmy, CVA and had posterior craniotomy/brain surgery to remove blood clot/trach, peg since removed, 2011 CABG 4 vessel, 2 back surgeries, bilateral carpal tunnel releases, bilateral cataract removals/lens implants, colonoscopy with benign polyp, skin cancer removal.egd Past Anesthesia/Blood Transfusion Reactions: No Reported Reaction Past Psychological History: No Psychological Hx Reported Additional Psychological History / Comment(s): pt came in from [facility]. pt stated needs to satff to assist to w/c -not ambulatory . Staff assist her with ADLs. Smoking Status: Former smoker Past Alcohol Use History: None Reported Additional Past Alcohol Use History / Comment(s): Pt started smoking in 1964 and quit in 2009 was smoking 1.5 ppd Past Drug Use History: None Reported - Past Family History Mother Family Medical History: CVA/TIA Additional Family Medical History / Comment(s): Mother of a CVA at the age of 47yrs. Father Family Medical History: Myocardial Infarction ([place]) Additional Family Medical History / Comment(s): Father of a [place] around age 60yrs. Medications and Allergies Home Medications Medication Instructions Recorded Confirmed Type Ergocalciferol [Vitamin D2 50,000 unit PO Q14D 12/04/14 07/14/19 History (ELSI)] Melatonin 3 mg PO HS PRN 12/04/14 07/14/19 History Acetaminophen Tab [Tylenol] 1,000 mg PO Q6HR PRN 07/20/15 07/14/19 History Allopurinol [Zyloprim] 100 mg PO DAILY@0600 06/01/17 07/14/19 History Calcitriol [Rocaltrol] 0.25 mcg PO MOTHSA 06/01/17 07/14/19 History Sennosides-Docusate Sodium 1 tab PO DAILY 08/13/18 07/14/19 History [Senokot-S] Pantoprazole [Protonix] 40 mg PO AC-BID tablet. 08/19/18 07/14/19 Rx Ipratropium-Albuterol Nebulize 3 ml INHALATION RT-TID PRN 08/22/18 07/14/19 History [Duoneb 0.5 mg-3 mg/3 ml Soln] Amiodarone [Cordarone] 200 mg PO BID tab 09/10/18 07/14/19 Rx Insulin Glargine,Hum.rec.anlog 22 unit SQ HS #0 09/10/18 07/14/19 Rx [Lantus Solostar] Isosorbide Mononitrate ER [Imdur] 30 mg PO DAILY tab.er.24h 09/10/18 07/14/19 Rx Metoprolol Tartrate [Lopressor] 25 mg PO BID tab 09/10/18 07/14/19 Rx Ferrous Sulfate [Iron] 325 mg PO HS 12/11/18 07/14/19 History Potassium Chloride ER [K-Dur 10] 10 meq PO DAILY 12/11/18 07/14/19 History amLODIPine [Norvasc] 5 mg PO DAILY@0600 12/11/18 07/14/19 History hydrALAZINE HCL [Apresoline] 25 mg PO TID 12/11/18 07/14/19 History Furosemide [Lasix] 40 mg PO HS 12/13/18 07/14/19 History Repaglinide [Prandin] 0.5 mg PO DAILY 12/13/18 07/14/19 History cloNIDine HCL [Catapres] 0.1 mg PO BID 12/13/18 07/14/19 History Atorvastatin [Lipitor] 20 mg PO HS 07/14/19 07/14/19 History Clopidogrel [Plavix] 75 mg PO HS 07/14/19 07/14/19 History Aplbegoqokdocn-BJ-Faqdgtnwvu 1 tab PO DAILY 07/14/19 07/14/19 History [Folbic] Furosemide [Lasix] 80 mg PO DAILY 07/14/19 07/14/19 History Magnesium Hydroxide [Milk of 2,400 mg PO Q72H PRN 07/14/19 07/14/19 History Magnesia] PARoxetine [Paxil] 10 mg PO Q48H 07/14/19 07/14/19 History clonazePAM [KlonoPIN] 0.5 mg PO TID 07/14/19 07/14/19 History guaiFENesin [guaiFENesin Oral 200 mg PO Q4H PRN 07/14/19 07/14/19 History Solution] Allergies Allergy/AdvReac Type Severity Reaction Status Date / Time benztropine mesylate Allergy Unknown Verified 07/14/19 15:03 [From Cogentin] donepezil [From Aricept] Allergy Unknown Verified 07/14/19 15:03 metoclopramide HCl Allergy Unknown Verified 07/14/19 15:03 [From Reglan] prochlorperazine edisylate Allergy Unknown Verified 07/14/19 15:03 [From Compazine] prochlorperazine maleate Allergy Unknown Verified 07/14/19 15:03 [From Compazine] Physical Exam Vitals: Vital Signs Temp Pulse Pulse Resp BP BP Pulse Ox 07/15/19 07:37 97.7 F 47 L 16 149/68 100 07/15/19 03:52 51 L 16 07/15/19 03:50 97.7 F 51 L 16 166/72 94 L 07/15/19 00:00 46 L 18 07/14/19 23:43 97.8 F 46 L 18 140/64 96 07/14/19 20:00 98.1 F 51 L 18 164/70 98 07/14/19 18:22 52 L 07/14/19 17:44 98.9 F 49 L 16 157/61 96 07/14/19 17:25 49 L 16 157/61 96 07/14/19 14:45 98.9 F 51 L 18 180/65 98 Intake and Output 07/14/19 07/15/19 07/15/19 22:59 06:59 14:59 Intake Total 150 120 Output Total 600 400 Balance -450 -400 120 Intake: Oral 150 120 Output: Urine 600 400 Other: Voiding Method Indwelling Catheter Indwelling Catheter Indwelling Catheter Weight 95 kg PHYSICAL EXAMINATION: GENERAL: 74-year-old female in no acute distress at the time of my examination HEENT: Head is atraumatic, normocephalic. Pupils equal, round. Sclera anicteric. Conjunctiva are clear. Mucous membranes of the mouth are moist. Neck is supple. There is no elevated jugular venous pressure. No carotid bruit is heard. HEART EXAMINATION: Heart S1 S2 1 systolic murmur is heard CHEST EXAMINATION: Lungs are clear with diminished air entry to bilateral bases ABDOMEN: Soft, nontender. Bowel sounds are heard. No organomegaly noted. EXTREMITIES: 2+ peripheral pulses with trace to 1+ evidence of peripheral edema, bilateral wraps in place . NEUROLOGIC patient is awake, alert and oriented 2 . . Results 07/14/19 14:45 07/14/19 14:45 Cardiac Enzymes 07/14/19 07/14/19 Range/Units 14:45 14:45 AST 71 H (14-36) U/L Troponin I 0.036 H* (0.000-0.034) ng/mL Coagulation 07/14/19 Range/Units 14:45 PT 11.5 (9.0-12.0) sec APTT 26.1 (22.0-30.0) sec CBC 07/14/19 Range/Units 14:45 WBC 10.5 (3.8-10.6) k/uL RBC 4.28 (3.80-5.40) m/uL Hgb 12.6 (11.4-16.0) gm/dL Hct 40.5 (34.0-46.0) % Plt Count 205 (150-450) k/uL Comprehensive Metabolic Panel 07/14/19 Range/Units 14:45 Sodium 138 (137-145) mmol/L Potassium 4.0 (3.5-5.1) mmol/L Chloride 99 (98-107) mmol/L Carbon Dioxide 30 (22-30) mmol/L BUN 45 H (7-17) mg/dL Creatinine 1.81 H (0.52-1.04) mg/dL Glucose 107 H (74-99) mg/dL Calcium 8.5 (8.4-10.2) mg/dL AST 71 H (14-36) U/L ALT 30 (9-52) U/L Alkaline Phosphatase 148 H (38-126) U/L Total Protein 7.2 (6.3-8.2) g/dL Albumin 3.0 L (3.5-5.0) g/dL Current Medications Generic Name Dose Route Start Last Admin Trade Name Freq PRN Reason Stop Dose Admin Albuterol/Ipratropium 3 ml 07/14/19 16:17 Duoneb 0.5 Mg-3 Mg/3 Ml Soln INHALATION RT-TID PRN Shortness Of Breath Amiodarone HCl 200 mg 07/14/19 21:00 07/14/19 20:13 Cordarone PO 200 mg BID CLAUDE Administration Amlodipine Besylate 5 mg 07/15/19 06:00 07/15/19 06:29 Norvasc PO 5 mg DAILY@0600 CLAUDE Administration Aspirin 325 mg 07/15/19 09:00 Aspirin PO DAILY [facility] Atorvastatin Calcium 20 mg 07/14/19 21:00 07/14/19 20:13 Lipitor PO 20 mg HS CLAUDE Administration Calcitriol 0.25 mcg 07/17/19 09:00 Rocaltrol PO MOTHSA CLAUDE Clonazepam 0.5 mg 07/14/19 22:00 07/14/19 20:13 Klonopin PO 0.5 mg TID CLAUDE Administration Clonidine 0.1 mg 07/14/19 21:00 07/14/19 20:13 Catapres PO 0.1 mg BID CLAUDE Administration Clopidogrel Bisulfate 75 mg 07/14/19 21:00 07/14/19 20:13 Plavix PO 75 mg HS CLAUDE Administration Furosemide 40 mg 07/14/19 22:00 07/15/19 06:29 Lasix IV 40 mg Q8H CLAUDE Administration Hydralazine HCl 25 mg 07/14/19 22:00 07/14/19 20:13 Apresoline PO 25 mg TID CLAUDE Administration Insulin Detemir 22 unit 07/14/19 21:00 07/14/19 20:09 Levemir SQ Not Given HS [facility] Isosorbide Mononitrate 30 mg 07/15/19 09:00 Imdur PO DAILY [facility] Metoprolol Tartrate 25 mg 07/14/19 21:00 07/14/19 20:13 Lopressor PO 25 mg BID CLAUDE Administration Pantoprazole Sodium 40 mg 07/14/19 17:30 07/15/19 06:29 Protonix PO 40 mg AC-BID CLAUDE Administration Paroxetine HCl 10 mg 07/15/19 09:00 Paxil PO Q48H [facility] Potassium Chloride 10 meq 07/15/19 09:00 K-Dur 10 PO DAILY [facility] Repaglinide 0.5 mg 07/15/19 09:00 Prandin PO DAILY [facility] Sodium Chloride 10 ml 07/14/19 21:00 07/14/19 20:14 Saline Flush IV 10 ml BID [facility] Administration Intake and Output 07/14/19 07/15/19 07/15/19 22:59 06:59 14:59 Intake Total 150 120 Output Total 600 400 Balance -450 -400 120 Intake: Oral 150 120 Output: Urine 600 400 Other: Voiding Method Indwelling Catheter Indwelling Catheter Indwelling Catheter Weight 95 kg 07/14/19 14:45 07/14/19 14:45 EKG Interpretations (text) EKG shows a sinus bradycardia with a first-degree AV block Assessment and Plan Plan: Assessment and plan #1 diastolic congestive heart failure, acute on chronic #2 hypertension #3 history of CVA #4 known history of coronary artery disease with prior bypass surgery #5 COPD #6 acute on chronic kidney disease #7 hyperlipidemia #8 mild dementia #9 paroxysmal atrial fibrillation, not on anticoagulation Plan We will repeat an echocardiogram with Doppler study. Continue IV Lasix at 40 mg every 8 hourly, decrease aspirin to 81 mg daily, continue beta delma, patient is currently not on an YVETTE inhibitor because of abnormal renal function, we will continue the Imdur and hydralazine. Monitor intake and output along with daily weights and daily lytes BUN and creatinine. Further recommendations to follow. DNP note has been reviewed, I agree with a documented findings and plan of care. Patient was seen and examined.
[2019-07-15] MEDS: ASPIRIN 81 MG PO SCH (08:29)
[2019-07-15] MEDS ORDERED: ASPIRIN 325 MG TAB PO SCH (09:00)
[2019-07-15 09:28] LABS: Anisocytosis Slight; Basophils % (A) 0 %; Eosinophils # (A) 0.1 k/uL (0-0.7); Eosinophils % (A) 1 %; HCT 33.2 % (34.0-46.0); HGB 10.4 gm/dL (11.4-16.0); Lymphocytes # (A) 0.9 k/uL (1.0-4.8); Lymphocytes % (A) 9 %; MCH 29.5 pg (25.0-35.0); MCHC 31.2 g/dL (31.0-37.0); MCV 94.4 fL (80.0-100.0); Mean Platelet Volume 10.2; Monocytes # (A) 1.3 k/uL (0-1.0); Monocytes % (A) 13 %; Neutrophils # (A) 7.1 k/uL (1.3-7.7); Neutrophils % (A) 74 %; Platelet Count 196 k/uL (150-450); RBC 3.52 m/uL (3.80-5.40); RDW 17.8 % (11.5-15.5); WBC 9.6 k/uL (3.8-10.6)
[2019-07-15 09:39] LABS: Potassium 4.3 mmol/L (3.5-5.1)
[2019-07-15 10:46] VITALS: BMI 32.8
--- NOTE | 2019-07-15 11:46 | ECHOF ---
Referral Reason:chf MEASUREMENTS -------- HEIGHT: 170.2 cm WEIGHT: 94.8 kg BP: 149/68 RVIDd: 3.9 cm (< 3.3) IVSd: 1.4 cm (0.6 - 1.1) LVIDd: 4.2 cm (3.9 - 5.3) LVPWd: 1.6 cm (0.6 - 1.1) IVSs: 2.0 cm LVIDs: 2.7 cm LVPWs: 2.2 cm LAESV Index (A-L): 45.44 ml/m Ao Diam: 2.7 cm (2.0 - 3.7) AV Cusp: 1.6 cm (1.5 - 2.6) LA Diam: 4.5 cm (2.7 - 3.8) MV E David: 1.38 m/s MV DecT: 263 ms MV A David: 0.81 m/s MV E/A Ratio: 1.70 RAP: 20.00 mmHg RVSP: 46.66 mmHg FINDINGS -------- Resting bradycardia (HR<60bpm). This was a technically adequate study. The left ventricular size is normal. There is moderate concentric left ventricular hypertrophy. O verall left ventricular systolic function is normal with, an EF between 55 - 60 %. Mitral Doppler i nflow pattern suggests diastolic filling abnormality. Septal wall motion is delayed and consistent with prior cardiac surgery. The right ventricle is moderately enlarged. Left atrium is severely dilated by volume. The right atrium is moderately enlarged. Interatrial and interventricular septum intact. The aortic valve is trileaflet and appears structurally normal. There is no evidence of aortic regu rgitation. There is no evidence of aortic stenosis. The mitral valve leaflets are mildly thickened. Owlttiyu-kn-gmcxdd mitral regurgitation is present. Severe tricuspid regurgitation present. There is moderate to severe pulmonary hypertension. The r ight ventricular systolic pressure, as measured by Doppler, is 46.66mmHg. Trace/mild (physiologic) pulmonic regurgitation. The aortic root size is normal. The inferior vena cava is dilated with no significant inspiratory collapse which is consistent estima [place] right atrial pressure of >20 mmHg. There is no pericardial effusion. CONCLUSIONS -------- 1. Resting bradycardia (HR<60bpm). 2. This was a technically adequate study. 3. The left ventricular size is normal. 4. There is moderate concentric left ventricular hypertrophy. 5. Overall left ventricular systolic function is normal with, an EF between 55 - 60 %. 6. Mitral Doppler inflow pattern suggests diastolic filling abnormality. 7. Septal wall motion is delayed and consistent with prior cardiac surgery. 8. The right ventricle is moderately enlarged. 9. Left atrium is severely dilated by volume. 10. The right atrium is moderately enlarged. 11. Interatrial and interventricular septum intact. 12. The aortic valve is trileaflet and appears structurally normal. 13. There is no evidence of aortic regurgitation. 14. There is no evidence of aortic stenosis. 15. The mitral valve leaflets are mildly thickened. 16. Yuotbiaq-la-ropvfx mitral regurgitation is present. 17. Severe tricuspid regurgitation present. 18. There is moderate to severe pulmonary hypertension. 19. The right ventricular systolic pressure, as measured by Doppler, is 46.66mmHg. 20. Trace/mild (physiologic) pulmonic regurgitation. 21. The aortic root size is normal. 22. The inferior vena cava is dilated with no significant inspiratory collapse which is consistent es timated right atrial pressure of >20 mmHg. 23. There is no pericardial effusion. SENIOR ADMINISTRATIVE ASSOCIATE: Merissa Paulino RDCS
[2019-07-15 11:51] LABS: Glucose,Whole Blood 95 mg/dL (75-99)
[2019-07-15] MEDS ORDERED: MAGNESIUM HYDROXIDE 2,400 MG/10 ML CUP PO PRN (13:08)
[2019-07-15] MEDS ORDERED: guaiFENesin SYRUP 100MG/5ML 200 MG/10 ML CUP PO PRN (13:08)
[2019-07-15] MEDS ORDERED: MELATONIN 3 MG TABLET PO PRN (13:08)
[2019-07-15] MEDS: ALLOPURINOL 100 MG TAB PO SCH (13:49)
[2019-07-15] MEDS: CYANOCOBALAMIN-FA-PYRIDOXINE 1 EACH TAB PO SCH (13:49)
[2019-07-15] MEDS: SENNOSIDES-DOCUSATE SODIUM 1 EACH TAB PO SCH (13:49)
[2019-07-15 16:59] LABS: Glucose,Whole Blood 98 mg/dL (75-99)
--- NOTE | 2019-07-15 20:33 | P.HPIM ---
History of Present Illness H&P Date: 07/15/19 Chief Complaint: Edema History of presenting complaint: This is a pleasant 74-year-old patient. Patient's report is started. Per the EMS run sheet patient been having increasing edema in the lower extremity. Apparently been going on for at least 2 days. Patient does take Lasix. Denies any significant short of breath. No chest pain. No fever no chills. Chronic stable medical conditions include persistent atrial fibrillation, right-sided weakness from a prior stroke, coronary artery disease, COPD in an ex-smoker, moderate cognitive impairment from multi-infarct dementia, diabetes mellitus type 2, GERD, hyperlipidemia, primary osteoarthritis, see daily stage III, chronic low back pain from sciatica, urinary incontinence, anxiety disorder, moderate mitral and tricuspid regurgitation regurgitation, severe secondary pulmonary hypertension. Patient not able to give too much of more history. 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 Social history: Resident [facility] reported on. 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 Patient stopped smoking in 1999 stent. Smoked a pack and a half for about 45 years. No alcohol. Physical examination: VITAL SIGNS: 98.9, 51, 18, 180/65, 98% room air GENERAL: BMI 32.8, laying in bed, tired appearing. EYES: Pupils equal. Conjunctiva normal. HEENT: External appearance of nose and ears normal, oral cavity grossly normal. NECK: Short and thick neck, JVD unable to assess, mass not palpable. HEART: Heart sounds distant, edema present. LUNGS: Respiratory rate increased, diminished breath sounds. ABDOMEN: Soft, nontender, liver spleen not palpable, no masses palpable. PSYCH: Patient able to answer simple questionsl. NEUROLOGICAL: Cranial nerves grossly intact; no facial asymmetry, slight decrease in part on the right side. LYMPHATICS: No lymph nodes palpable in the axilla and neck INVESTIGATIONS, reviewed in the clinical context: EKG tracing personally reviewed by me-sinus bradycardia heart rate of 50 Chest x-ray film personally reviewed by me-shows pulmonary edema, pleural effusion, fluid in the fissure 2-D echo-moderate concentric left ventricular hypertrophy, EF 55-60%, severe tricuspid regurgitation, moderate to severe mitral regurgitation, moderately severe pulmonary hypertension White count 9.6 and bilirubin 10.4 platelets 196 potassium 4.3 bun 46 creatinine 1.87 Labs on June 26 were bun of 35 creatinine 1.79 Assessment: -Acute on chronic congestive heart failure from diastolic dysfunction EF 55-60% -Paroxysmal atrial fibrillation -Coronary artery disease with prior history of bypass -COPD in an ex-smoker -Moderate cognitive impairment from multi-infarct dementia -Diabetes mellitus type 2 on -GERD -Hyperlipidemia -Primary osteoarthritis -Chronic kidney disease stage III from nephrosclerosis and diabetic nephropathy -Chronic low back pain with sciatica -Chronic urinary incontinence -Anxiety not otherwise specified -Severe secondary probably hypertension due to COPD and CHF -Moderate mitral and tricuspid regurgitation nonrheumatic -Anxiety disorder -Obesity BMI 32.8 -CODE STATUS DO NOT RESUSCITATE Plan: Given her advanced renal failure we'll try patient Lasix drip more effective diuresis. Give this a trial for 24 hours. Watch I's and O's closely. Care was discussed with the patient. We will use a stressful lower extremity. Follow electrolytes closely. Home medications resumed. Accu-Cheks will be followed. Cardiology was consulted. 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 2008 CVA affected balance/coordination/short term memory/ caused chronic nausea and impulsiveness/ pt was trached and had a peg tube, IDDM type II, CKD stage III, problems with potassium levels, low back pain with sciatica, gout in hands/feet, skin cancer with removal, urinary incontinence and occasional diarrhea.uti's, recent rt tib/fib fx wears boot.pul edema History of Any Multi-Drug Resistant Organisms: None Reported Past Surgical History: Back Surgery, Coronary Bypass/CABG, Heart Catheterization, Hysterectomy, Orthopedic Surgery Additional Past Surgical History / Comment(s): Bilateral carotid endarectmy, CVA and had posterior craniotomy/brain surgery to remove blood clot/trach, peg since removed, 2011 CABG 4 vessel, 2 back surgeries, bilateral carpal tunnel releases, bilateral cataract removals/lens implants, colonoscopy with benign polyp, skin cancer removal.egd Past Anesthesia/Blood Transfusion Reactions: No Reported Reaction Past Psychological History: No Psychological Hx Reported Additional Psychological History / Comment(s): pt came in from [facility]. pt stated needs to satff to assist to w/c -not ambulatory . Staff assist her with ADLs. Smoking Status: Former smoker Past Alcohol Use History: None Reported Additional Past Alcohol Use History / Comment(s): Pt started smoking in 1964 and quit in 2009 was smoking 1.5 ppd Past Drug Use History: None Reported - Past Family History Mother Family Medical History: CVA/TIA Additional Family Medical History / Comment(s): Mother of a CVA at the age of 47yrs. Father Family Medical History: Myocardial Infarction (PA) Additional Family Medical History / Comment(s): Father of a PA around age 60yrs. Medications and Allergies Home Medications Medication Instructions Recorded Confirmed Type Ergocalciferol [Vitamin D2 50,000 unit PO Q14D 12/04/14 07/14/19 History (DRISDOL)] Melatonin 3 mg PO HS PRN 12/04/14 07/14/19 History Acetaminophen Tab [Tylenol] 1,000 mg PO Q6HR PRN 07/20/15 07/14/19 History Allopurinol [Zyloprim] 100 mg PO DAILY@0600 06/01/17 07/14/19 History Calcitriol [Rocaltrol] 0.25 mcg PO MOTHSA 06/01/17 07/14/19 History Sennosides-Docusate Sodium 1 tab PO DAILY 08/13/18 07/14/19 History [Senokot-S] Pantoprazole [Protonix] 40 mg PO AC-BID tablet. 08/19/18 07/14/19 Rx Ipratropium-Albuterol Nebulize 3 ml INHALATION RT-TID PRN 08/22/18 07/14/19 History [Duoneb 0.5 mg-3 mg/3 ml Soln] Amiodarone [Cordarone] 200 mg PO BID tab 09/10/18 07/14/19 Rx Insulin Glargine,Hum.rec.anlog 22 unit SQ HS #0 09/10/18 07/14/19 Rx [Lantus Solostar] Isosorbide Mononitrate ER [Imdur] 30 mg PO DAILY tab.er.24h 09/10/18 07/14/19 Rx Metoprolol Tartrate [Lopressor] 25 mg PO BID tab 09/10/18 07/14/19 Rx Ferrous Sulfate [Iron] 325 mg PO HS 12/11/18 07/14/19 History Potassium Chloride ER [K-Dur 10] 10 meq PO DAILY 12/11/18 07/14/19 History amLODIPine [Norvasc] 5 mg PO DAILY@0600 12/11/18 07/14/19 History hydrALAZINE HCL [Apresoline] 25 mg PO TID 12/11/18 07/14/19 History Furosemide [Lasix] 40 mg PO HS 12/13/18 07/14/19 History Repaglinide [Prandin] 0.5 mg PO DAILY 12/13/18 07/14/19 History cloNIDine HCL [Catapres] 0.1 mg PO BID 12/13/18 07/14/19 History Atorvastatin [Lipitor] 20 mg PO HS 07/14/19 07/14/19 History Clopidogrel [Plavix] 75 mg PO HS 07/14/19 07/14/19 History Otslbuxzwtrfyz-PC-Tfwrplpwdn 1 tab PO DAILY 07/14/19 07/14/19 History [Folbic] Furosemide [Lasix] 80 mg PO DAILY 07/14/19 07/14/19 History Magnesium Hydroxide [Milk of 2,400 mg PO Q72H PRN 07/14/19 07/14/19 History Magnesia] PARoxetine [Paxil] 10 mg PO Q48H 07/14/19 07/14/19 History clonazePAM [KlonoPIN] 0.5 mg PO TID 07/14/19 07/14/19 History guaiFENesin [guaiFENesin Oral 200 mg PO Q4H PRN 07/14/19 07/14/19 History Solution] Allergies Allergy/AdvReac Type Severity Reaction Status Date / Time benztropine mesylate Allergy Unknown Verified 07/14/19 15:03 [From Cogentin] donepezil [From Aricept] Allergy Unknown Verified 07/14/19 15:03 metoclopramide HCl Allergy Unknown Verified 07/14/19 15:03 [From Reglan] prochlorperazine edisylate Allergy Unknown Verified 07/14/19 15:03 [From Compazine] prochlorperazine maleate Allergy Unknown Verified 07/14/19 15:03 [From Compazine] Physical Exam Vitals: Vital Signs Temp Pulse Pulse Resp BP BP Pulse Ox 07/15/19 11:48 98.0 F 48 L 16 151/69 99 07/15/19 07:37 97.7 F 47 L 16 149/68 100 07/15/19 03:52 51 L 16 07/15/19 03:50 97.7 F 51 L 16 166/72 94 L 07/15/19 00:00 46 L 18 07/14/19 23:43 97.8 F 46 L 18 140/64 96 07/14/19 20:00 98.1 F 51 L 18 164/70 98 07/14/19 18:22 52 L 07/14/19 17:44 98.9 F 49 L 16 157/61 96 07/14/19 17:25 49 L 16 157/61 96 07/14/19 14:45 98.9 F 51 L 18 180/65 98 Intake and Output 07/14/19 07/15/19 07/15/19 22:59 06:59 14:59 Intake Total 150 120 Output Total 600 400 Balance -450 -400 120 Intake: Oral 150 120 Output: Urine 600 400 Other: Voiding Method Indwelling Catheter Indwelling Catheter Indwelling Catheter Weight 95 kg 95 kg Results CBC & Chem 7: 07/15/19 08:35 07/15/19 08:35 Labs: Abnormal Lab Results - Last 24 Hours (Table) 07/14/19 07/14/19 07/14/19 Range/Units 14:45 14:45 14:45 RBC (3.80-5.40) m/uL Hgb (11.4-16.0) gm/dL Hct (34.0-46.0) % RDW 17.6 H (11.5-15.5) % Neutrophils # 7.8 H (1.3-7.7) k/uL Lymphocytes # 0.9 L (1.0-4.8) k/uL Monocytes # 1.4 H (0-1.0) k/uL Sodium (137-145) mmol/L BUN 45 H (7-17) mg/dL Creatinine 1.81 H (0.52-1.04) mg/dL Glucose 107 H (74-99) mg/dL POC Glucose (mg/dL) (75-99) mg/dL Calcium (8.4-10.2) mg/dL AST 71 H (14-36) U/L Alkaline Phosphatase 148 H (38-126) U/L Troponin I 0.036 H* (0.000-0.034) ng/mL Albumin 3.0 L (3.5-5.0) g/dL 07/14/19 07/15/19 07/15/19 Range/Units 20:07 06:13 08:35 RBC 3.52 L (3.80-5.40) m/uL Hgb 10.4 L (11.4-16.0) gm/dL Hct 33.2 L (34.0-46.0) % RDW 17.8 H (11.5-15.5) % Neutrophils # (1.3-7.7) k/uL Lymphocytes # 0.9 L (1.0-4.8) k/uL Monocytes # 1.3 H (0-1.0) k/uL Sodium (137-145) mmol/L BUN (7-17) mg/dL Creatinine (0.52-1.04) mg/dL Glucose (74-99) mg/dL POC Glucose (mg/dL) 70 L 65 L (75-99) mg/dL Calcium (8.4-10.2) mg/dL AST (14-36) U/L Alkaline Phosphatase (38-126) U/L Troponin I (0.000-0.034) ng/mL Albumin (3.5-5.0) g/dL 07/15/19 Range/Units 08:35 RBC (3.80-5.40) m/uL Hgb (11.4-16.0) gm/dL Hct (34.0-46.0) % RDW (11.5-15.5) % Neutrophils # (1.3-7.7) k/uL Lymphocytes # (1.0-4.8) k/uL Monocytes # (0-1.0) k/uL Sodium 135 L (137-145) mmol/L BUN 46 H (7-17) mg/dL Creatinine 1.87 H (0.52-1.04) mg/dL Glucose 144 H (74-99) mg/dL POC Glucose (mg/dL) (75-99) mg/dL Calcium 8.0 L (8.4-10.2) mg/dL AST (14-36) U/L Alkaline Phosphatase (38-126) U/L Troponin I (0.000-0.034) ng/mL Albumin (3.5-5.0) g/dL Thrombosis Risk Factor Assmnt - Choose All That Apply Any of the Below Risk Factors Present?: Yes Each Factor Represents 1 point: Heart failure (<1month), Obesity (BMI >25), Swollen legs (current) Other Risk Factors: Yes Each Risk Factor Represents 2 Points: Patient confined to bed Each Risk Factor Represents 3 Points: Age 75 years or older, History of DVT/PE Thrombosis Risk Factor Assessment Total Risk Factor Score: 11 Thrombosis Risk Factor Assessment Level: High Risk
[2019-07-15] MEDS: ATORVASTATIN 20 MG TAB PO SCH (20:40)
[2019-07-15] MEDS: CLOPIDOGREL 75 MG TAB PO SCH (20:40)
[2019-07-15] MEDS: FERROUS SULFATE 325 MG TAB PO SCH (20:41)
[2019-07-15] MEDS ORDERED: INSULIN GLARGINE HUM REC ANLOG 22 UNIT SQ SCH (21:00)
[2019-07-15] MEDS: FUROSEMIDE 100 MG in SODIUM CHLORIDE 0.9% 90 ML IV SCH (21:26)
[2019-07-15 21:27] LABS: Glucose,Whole Blood 108 mg/dL (75-99)
[2019-07-15] MEDS: INSULIN DETEMIR (LEVEMIR) 100 UNIT/ML SYR SQ SCH (21:27)
[2019-07-16] MEDS: ACETAMINOPHEN TAB 500 MG TAB PO PRN ×2 (05:03→15:39)
[2019-07-16 06:03] LABS: Glucose,Whole Blood 100 mg/dL (75-99)
[2019-07-16] MEDS: PANTOPRAZOLE 40 MG TABLET PO SCH ×2 (06:47→16:59)
[2019-07-16] MEDS: FUROSEMIDE 100 MG in SODIUM CHLORIDE 0.9% 90 ML IV SCH ×3 (06:47→21:43)
[2019-07-16] MEDS: ALLOPURINOL 100 MG TAB PO SCH (06:47)
[2019-07-16] MEDS: amLODIPine 5 MG TAB PO SCH (06:47)
[2019-07-16 07:30] LABS: Calcium 8.3 mg/dL (8.4-10.2); Potassium 3.7 mmol/L (3.5-5.1)
[2019-07-16] MEDS: ISOSORBIDE MONONITRATE ER 30 MG TAB.ER.24H PO SCH (08:39)
[2019-07-16] MEDS: CYANOCOBALAMIN-FA-PYRIDOXINE 1 EACH TAB PO SCH (08:39)
[2019-07-16] MEDS: AMIODARONE 200 MG TAB PO SCH ×2 (08:39→21:37)
[2019-07-16] MEDS: hydrALAZINE HCL 25 MG TAB PO SCH (08:39)
[2019-07-16] MEDS: METOPROLOL TARTRATE 25 MG TAB PO SCH ×2 (08:39→21:37)
[2019-07-16] MEDS: REPAGLINIDE 1 MG TAB PO SCH (08:39)
[2019-07-16] MEDS: SENNOSIDES-DOCUSATE SODIUM 1 EACH TAB PO SCH (08:39)
[2019-07-16] MEDS: POTASSIUM CHLORIDE ER 10 MEQ TAB.ER.PRT PO SCH (08:39)
[2019-07-16] MEDS: cloNIDine HCL 0.1 MG TAB PO SCH (08:40)
[2019-07-16] MEDS: ASPIRIN 81 MG PO SCH (08:40)
[2019-07-16] MEDS: clonazePAM 0.5 MG TAB PO SCH ×3 (08:40→21:37)
[2019-07-16 11:46] LABS: Glucose,Whole Blood 116 mg/dL (75-99)
--- NOTE | 2019-07-16 14:17 | P.PN ---
Subjective Progress Note Date: 07/16/19 This is a 74-year-old female patient with history of prior CVA, coronary artery disease with prior bypass surgery, COPD, dementia, hypertension, chronic kidney disease, hypertension, osteoarthritis. Who was admitted to the hospital mainly with symptoms of lower extremity edema. According to the patient for the past couple of days she has noticed herself to put on more fluid in her lower extremities. She denies any change in her breathing, states overall that she's been breathing fairly well. Denies any PND or orthopnea. Patient's most recent echocardiogram with Doppler study was performed in August which revealed an ejection fraction of 45-50%, moderate mitral regurg, moderate to severe tric uspid regurg and moderate to severe pulmonary hypertension were noted at that time. Laboratory data was reviewed, white blood cell count 10.5, hemoglobin 12.6, platelet count 205. Sodium 138, potassium 4.0, BUN 45 and creatinine 1.8. Troponin 0.036, BNP level 13,900. Admission Blood pressure 180/60 with a heart rate in the 50s, 98% on room air. Blood pressure this morning 148/60 with a heart rate in the 40s to 50s, 100% on room air. Chest x-ray shows improved aeration in comparison to prior with a trace pleural effusion. EKG shows a sinus bradycardia with a first-degree AV block. At the time of my examination this morning, patient is lying flat in bed, no difficulty in breathing, she just feels tired. She has been initiated on IV Lasix, she does have a good amount of urine in her Peralta catheter bag. 07/16/2019 Patient seen and examined this morning, her daughter is at bedside. Overall she feels well. Blood pressure running on the high side, 190/80, and 180/80, heart rate in the 60s, 92% on room air. Sodium 138, potassium 3.7, BUN 46 and creatinine 2.1. We will increase the clonidine to 0.2 mg twice a day, increase hydralazine, repeat chest x-ray in the morning. Objective - Vital Signs Vital signs: Vital Signs Temp 98.2 F 07/16/19 08:00 Pulse 62 07/16/19 08:00 Resp 16 07/16/19 08:00 BP 180/85 07/16/19 08:00 Pulse Ox 92 L 07/16/19 08:00 Intake & Output 07/15/19 07/16/19 07/16/19 18:59 06:59 18:59 Intake Total 240 93.5 0 Output Total 1000 Balance -760 93.5 0 Weight 95 kg 95 kg Intake: Intake, IV Titration 93.5 Amount Furosemide 100 mg In 93.5 Sodium Chloride 0.9% 90 ml @ 10 MG/HR 10 mls/hr IV .Q10H [facility] Rx#: [id number] Oral 240 0 Output: Urine 1000 Other: Voiding Method Indwelling Catheter Indwelling Catheter Indwelling Catheter - Exam PHYSICAL EXAMINATION: GENERAL: 74-year-old female in no acute distress at the time of my examination HEENT: Head is atraumatic, normocephalic. Pupils equal, round. Sclera anicteric. Conjunctiva are clear. Mucous membranes of the mouth are moist. Neck is supple. There is no elevated jugular venous pressure. No carotid bruit is heard. HEART EXAMINATION: Heart S1 S2 1 systolic murmur is heard CHEST EXAMINATION: Lungs are clear with diminished air entry to bilateral bases ABDOMEN: Soft, nontender. Bowel sounds are heard. No organomegaly noted. EXTREMITIES: 2+ peripheral pulses with trace to 1+ evidence of peripheral edema, bilateral wraps in place . NEUROLOGIC patient is awake, alert and oriented 2 . - Labs CBC & Chem 7: 07/15/19 08:35 07/16/19 06:29 Labs: Abnormal Lab Results - Last 24 Hours (Table) 07/15/19 07/16/19 07/16/19 Range/Units 21:25 06:01 06:29 Chloride 97 L (98-107) mmol/L Carbon Dioxide 32 H (22-30) mmol/L BUN 46 H (7-17) mg/dL Creatinine 2.17 H (0.52-1.04) mg/dL POC Glucose (mg/dL) 108 H 100 H (75-99) mg/dL Calcium 8.3 L (8.4-10.2) mg/dL 07/16/19 Range/Units 11:44 Chloride (98-107) mmol/L Carbon Dioxide (22-30) mmol/L BUN (7-17) mg/dL Creatinine (0.52-1.04) mg/dL POC Glucose (mg/dL) 116 H (75-99) mg/dL Calcium (8.4-10.2) mg/dL Assessment and Plan Plan: Assessment and plan #1 diastolic congestive heart failure, acute on chronic #2 hypertension #3 history of CVA #4 known history of coronary artery disease with prior bypass surgery #5 COPD #6 acute on chronic kidney disease #7 hyperlipidemia #8 mild dementia #9 paroxysmal atrial fibrillation, not on anticoagulation Plan We'll continue current dose of IV Lasix drip, increase the Catapres and the hydralazine today. Repeat chest x-ray in the morning. DNP note has been reviewed, I agree with a documented findings and plan of care. Patient was seen and examined.
[2019-07-16] MEDS: hydrALAZINE HCL 50 MG TAB PO SCH ×2 (15:40→21:37)
[2019-07-16 16:40] LABS: Glucose,Whole Blood 110 mg/dL (75-99)
--- NOTE | 2019-07-16 20:23 | P.PN ---
Progress Note - Text Progress Note Date: 07/16/19 Chief Complaint: Edema Interval history: This is a pleasant 74-year-old patient. Patient's report is started. Per the EMS run sheet patient been having increasing edema in the lower extremity. Apparently been going on for at least 2 days. Patient does take Lasix. Denies any significant short of breath. No chest pain. No fever no chills. Chronic stable medical conditions include persistent atrial fibrillation, right-sided weakness from a prior stroke, coronary artery disease, COPD in an ex-smoker, moderate cognitive impairment from multi-infarct dementia, diabetes mellitus type 2, GERD, hyperlipidemia, primary osteoarthritis, see daily stage III, chronic low back pain from sciatica, urinary incontinence, anxiety disorder, moderate mitral and tricuspid regurgitation regurgitation, severe secondary pulmonary hypertension. Patient not able to give too much of more history. Admitted with CHF exacerbation. Started on a Lasix drip. Today-laying in bed. More awake. Family including daughter the bedside. Over 2000 mL in negative fluid balance. Carlos wrap so put on. Review of systems difficult to do because patient can only speak a few words. Looks more comfortable Active Medications Acetaminophen (Tylenol Tab) 1,000 mg PO Q6HR PRN PRN Reason: Pain or Fever > 100.5 Last Admin: 07/16/19 15:39 Dose: 1,000 mg Documented by: Albuterol/Ipratropium (Duoneb 0.5 Mg-3 Mg/3 Ml Soln) 3 ml INHALATION RT-TID PRN PRN Reason: Shortness Of Breath Allopurinol (Zyloprim) 100 mg PO DAILY@0600 [facility] Last Admin: 07/16/19 06:47 Dose: 100 mg Documented by: Amiodarone HCl (Cordarone) 200 mg PO BID [facility] Last Admin: 07/16/19 08:39 Dose: 200 mg Documented by: Amlodipine Besylate (Norvasc) 5 mg PO DAILY@0600 [facility] Last Admin: 07/16/19 06:47 Dose: 5 mg Documented by: Aspirin (Aspirin) 81 mg PO DAILY [facility] Last Admin: 07/16/19 08:40 Dose: 81 mg Documented by: Atorvastatin Calcium (Lipitor) 20 mg PO [facility] Last Admin: 07/15/19 20:40 Dose: 20 mg Documented by: Calcitriol (Rocaltrol) 0.25 mcg PO [facility] Clonazepam (Klonopin) 0.5 mg PO TID [facility] Last Admin: 07/16/19 15:40 Dose: 0.5 mg Documented by: Clonidine (Catapres) 0.2 mg PO BID [facility] Clopidogrel Bisulfate (Plavix) 75 mg PO [facility] Last Admin: 07/15/19 20:40 Dose: 75 mg Documented by: Ferrous Sulfate (Feosol) 325 mg PO HS [facility] Last Admin: 07/15/19 20:41 Dose: 325 mg Documented by: Folic Acid (Folbic) 1 each PO DAILY [facility] Last Admin: 07/16/19 08:39 Dose: 1 each Documented by: Guaifenesin (Robitussin) 200 mg PO Q4H PRN PRN Reason: Cough Hydralazine HCl (Apresoline) 50 mg PO TID [facility] Last Admin: 07/16/19 15:40 Dose: 50 mg Documented by: Furosemide 100 mg/ Sodium (Chloride) 100 mls @ 10 mls/hr IV .Q10H [facility] Last Admin: 07/16/19 15:41 Dose: 10 mg/hr, 10 mls/hr Documented by: Insulin Detemir (Levemir) 15 unit SQ [facility] Last Admin: 07/15/19 21:27 Dose: Not Given Documented by: Isosorbide Mononitrate (Imdur) 30 mg PO DAILY [facility] Last Admin: 07/16/19 08:39 Dose: 30 mg Documented by: Magnesium Hydroxide (Milk Of Magnesia) 2,400 mg PO Q72H PRN PRN Reason: Constipation Melatonin (Melatonin) 3 mg PO HS PRN PRN Reason: Insomnia Metoprolol Tartrate (Lopressor) 25 mg PO BID [facility] Last Admin: 07/16/19 08:39 Dose: 25 mg Documented by: Pantoprazole Sodium (Protonix) 40 mg PO AC-BID [facility] Last Admin: 07/16/19 16:59 Dose: 40 mg Documented by: Paroxetine HCl (Paxil) 10 mg PO Q48H [facility] Last Admin: 07/15/19 08:18 Dose: 10 mg Documented by: Potassium Chloride (K-Dur 10) 10 meq PO DAILY [facility] Last Admin: 07/16/19 08:39 Dose: 10 meq Documented by: Repaglinide (Prandin) 0.5 mg PO DAILY [facility] Last Admin: 07/16/19 08:39 Dose: 0.5 mg Documented by: Senna/Docusate Sodium (Senokot-S) 1 each PO DAILY [facility] Last Admin: 07/16/19 08:39 Dose: 1 each Documented by: Sodium Chloride (Saline Flush) 10 ml IV BID [facility] Last Admin: 07/16/19 12:09 Dose: Not Given Documented by: Physical examination: VITAL SIGNS: 98.5, 62, 16, and 1575, 99% room air GENERAL: Laying in bed, appears more comfortable today EYES: Pupils equal. Conjunctiva normal. HEENT: External appearance of nose and ears normal, oral cavity grossly normal. NECK: Short and thick neck, JVD unable to assess, mass not palpable. HEART: Heart sounds distant, edema present. LUNGS: Respiratory rate increased, diminished breath sounds. ABDOMEN: Soft, nontender, liver spleen not palpable, no masses palpable. PSYCH: Patient can answer some occasional words. NEUROLOGICAL: Cranial nerves grossly intact; no facial asymmetry, slight decrease in power on the right side. INVESTIGATIONS, reviewed in the clinical context: Potassium 3.7 bun 46 creatinine 2.17 Admission testing: EKG tracing personally reviewed by me-sinus bradycardia heart rate of 50 Chest x-ray film personally reviewed by me-shows pulmonary edema, pleural eff usion, fluid in the fissure 2-D echo-moderate concentric left ventricular hypertrophy, EF 55-60%, severe tricuspid regurgitation, moderate to severe mitral regurgitation, moderately severe pulmonary hypertension White count 9.6 and bilirubin 10.4 platelets 196 potassium 4.3 bun 46 creatinine 1.87 Labs on June 26 were bun of 35 creatinine 1.79 Assessment: -Acute on chronic congestive heart failure from diastolic dysfunction EF 55-60%, slow to respond -Paroxysmal atrial fibrillation -Coronary artery disease with prior history of bypass -COPD in an ex-smoker -Moderate cognitive impairment from multi-infarct dementia -Diabetes mellitus type 2 on -GERD -Hyperlipidemia -Primary osteoarthritis -Chronic kidney disease stage III from nephrosclerosis and diabetic nephropathy -Chronic low back pain with sciatica -Chronic urinary incontinence -Anxiety not otherwise specified -Severe secondary probably hypertension due to COPD and CHF -Moderate mitral and tricuspid regurgitation nonrheumatic -Anxiety disorder -Obesity BMI 32.8 -CODE STATUS DO NOT RESUSCITATE Plan: Patient is in a good urine output. Creatinine started to climb. Follow I's closely. Care was discussed with daughter the bedside. Possibility 24 hours of IV Lasix. Follow
[2019-07-16 20:43] LABS: Glucose,Whole Blood 197 mg/dL (75-99)
[2019-07-16] MEDS: FERROUS SULFATE 325 MG TAB PO SCH (21:37)
[2019-07-16] MEDS: CLOPIDOGREL 75 MG TAB PO SCH (21:37)
[2019-07-16] MEDS: cloNIDine HCL 0.2 MG TAB PO SCH (21:37)
[2019-07-16] MEDS: INSULIN DETEMIR (LEVEMIR) 100 UNIT/ML SYR SQ SCH (21:37)
[2019-07-16] MEDS: ATORVASTATIN 20 MG TAB PO SCH (21:37)
[2019-07-17] MEDS: amLODIPine 5 MG TAB PO SCH (06:17)
[2019-07-17] MEDS: ALLOPURINOL 100 MG TAB PO SCH (06:17)
[2019-07-17] MEDS: PANTOPRAZOLE 40 MG TABLET PO SCH ×2 (06:17→16:21)
[2019-07-17 06:33] LABS: Glucose,Whole Blood 102 mg/dL (75-99)
[2019-07-17 06:57] LABS: Potassium 3.5 mmol/L (3.5-5.1)
[2019-07-17] MEDS: ASPIRIN 81 MG PO SCH (09:05)
[2019-07-17] MEDS: hydrALAZINE HCL 50 MG TAB PO SCH ×3 (09:05→20:51)
[2019-07-17] MEDS: ISOSORBIDE MONONITRATE ER 30 MG TAB.ER.24H PO SCH (09:05)
[2019-07-17] MEDS: AMIODARONE 200 MG TAB PO SCH ×2 (09:05→20:50)
[2019-07-17] MEDS: METOPROLOL TARTRATE 25 MG TAB PO SCH ×2 (09:05→20:51)
[2019-07-17] MEDS: CALCITRIOL 0.25 MCG CAP PO SCH (09:05)
[2019-07-17] MEDS: SENNOSIDES-DOCUSATE SODIUM 1 EACH TAB PO SCH (09:05)
[2019-07-17] MEDS: POTASSIUM CHLORIDE ER 10 MEQ TAB.ER.PRT PO SCH (09:05)
[2019-07-17] MEDS: cloNIDine HCL 0.2 MG TAB PO SCH ×2 (09:05→20:51)
[2019-07-17] MEDS: PARoxetine 10 MG TAB PO SCH (09:05)
[2019-07-17] MEDS: ACETAMINOPHEN TAB 500 MG TAB PO PRN ×2 (09:06→20:51)
[2019-07-17] MEDS: clonazePAM 0.5 MG TAB PO SCH ×3 (09:06→20:51)
[2019-07-17] MEDS: CYANOCOBALAMIN-FA-PYRIDOXINE 1 EACH TAB PO SCH (09:06)
[2019-07-17] MEDS: REPAGLINIDE 1 MG TAB PO SCH (09:06)
[2019-07-17] MEDS: FUROSEMIDE 100 MG in SODIUM CHLORIDE 0.9% 90 ML IV SCH (09:11)
--- NOTE | 2019-07-17 11:04 | CDI ---
Documentation Clarification Form Date: 07/17/2019 10:51:19 AM From: Shelley Arenas RN CCDS Admit Date: 07/16/2019 10:19:00 AM Patient Name: Mishel Jarvis Visit Number: [id number] Discharge Date: ATTENTION: The Clinical Documentation Specialists (CDI) and [facility] Coding Staff appreciate your assistance in clarifying documentation. Please respond to the clarification below the line at the bottom and electronically sign. The CDI & [facility] Coding staff will review the response and follow-up if needed. Please note: Queries are made part of the Legal Health Record. If you have any questions, please contact the author of this message via ITS. Dr. Tong Larios Documentation states: Creatinine started to climb in your 07/16/2109 Progress Note History/Risk Factors: 74 year old female presents to the ED for increasing edema in the lower extremity. Medical history of CKD 3; Persisent Afib, COPD, CAD Clinical indicators: Creatinine 07/14 1.81; 07/15 187; 07/16 2.17; 07/17 2.03 Abnormal (CDI insert radiology study/ laboratory result/pathology report): Treatment: Monitoring Intake and Output, Daily Chem Panel Clinical significance of diagnostic testing and treatment CANNOT be assumed or coded without physician documentation of significance if any. Please clarify what abnormal laboratory signifies: * Acute on chronic kidney disease * Abnormal Lab Value * Unable to determine * Other, please specify (Last Revision: August 2017) acute on CKD, prerenal, not POA MTDD
[2019-07-17 11:36] LABS: Glucose,Whole Blood 103 mg/dL (75-99)
--- NOTE | 2019-07-17 14:38 | XR ---
EXAMINATION TYPE: XR chest 2V DATE OF EXAM: 07/17/2019 COMPARISON: 07/14/2019 HISTORY: Shortness of breath FINDINGS: There are bilateral pleural effusions with cardiomegaly and bibasilar infiltrate. There is a diffuse interstitial pattern. Postsurgical changes. 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 IMPRESSION: 1. Bilateral infiltrate and pleural effusion correlate for CHF. Findings are stable. Otherwise consid er pneumonia
--- NOTE | 2019-07-17 15:29 | P.PN ---
Subjective Progress Note Date: 07/17/19 This is a 74-year-old female patient with history of prior CVA, coronary artery disease with prior bypass surgery, COPD, dementia, hypertension, chronic kidney disease, hypertension, osteoarthritis. Who was admitted to the hospital mainly with symptoms of lower extremity edema. According to the patient for the past couple of days she has noticed herself to put on more fluid in her lower extremities. She denies any change in her breathing, states overall that she's been breathing fairly well. Denies any PND or orthopnea. Patient's most recent echocardiogram with Doppler study was performed in August which revealed an ejection fraction of 45-50%, moderate mitral regurg, moderate to severe tric uspid regurg and moderate to severe pulmonary hypertension were noted at that time. Laboratory data was reviewed, white blood cell count 10.5, hemoglobin 12.6, platelet count 205. Sodium 138, potassium 4.0, BUN 45 and creatinine 1.8. Troponin 0.036, BNP level 13,900. Admission Blood pressure 180/60 with a heart rate in the 50s, 98% on room air. Blood pressure this morning 148/60 with a heart rate in the 40s to 50s, 100% on room air. Chest x-ray shows improved aeration in comparison to prior with a trace pleural effusion. EKG shows a sinus bradycardia with a first-degree AV block. At the time of my examination this morning, patient is lying flat in bed, no difficulty in breathing, she just feels tired. She has been initiated on IV Lasix, she does have a good amount of urine in her Peralta catheter bag. 07/16/2019 Patient seen and examined this morning, her daughter is at bedside. Overall she feels well. Blood pressure running on the high side, 190/80, and 180/80, heart rate in the 60s, 92% on room air. Sodium 138, potassium 3.7, BUN 46 and creatinine 2.1. We will increase the clonidine to 0.2 mg twice a day, increase hydralazine, repeat chest x-ray in the morning. 07/17/2019 Patient was seen and examined this morning, overall doing well. Continue to diurese well through the night last night. Chest x-ray shows improvement from admission chest x-ray. We will discontinue the IV Lasix drip today and start the patient on oral diuretics. Her echo showed normal left ventricular systolic function. Objective - Vital Signs Vital signs: Vital Signs Temp 97.8 F 07/17/19 08:00 Pulse 52 L 07/17/19 12:36 Resp 16 07/17/19 12:36 BP 163/66 07/17/19 12:36 Pulse Ox 95 07/17/19 12:36 Intake & Output 07/16/19 07/17/19 07/17/19 18:59 06:59 18:59 Intake Total 329 420.333 390 Output Total 1150 800 Balance -821 -379.667 390 Weight 93 kg Intake: Intake, IV Titration 89 60.333 100 Amount Furosemide 100 mg In 89 60.333 100 Sodium Chloride 0.9% 90 ml @ 10 MG/HR 10 mls/hr IV .Q10H [facility] Rx#: [id number] Oral 240 360 290 Output: Urine 1150 800 Other: Voiding Method Indwelling Catheter Indwelling Catheter # Bowel Movements 1 1 - Exam PHYSICAL EXAMINATION: GENERAL: 74-year-old female in no acute distress at the time of my examination HEENT: Head is atraumatic, normocephalic. Pupils equal, round. Sclera anicteric. Conjunctiva are clear. Mucous membranes of the mouth are moist. Neck is supple. There is no elevated jugular venous pressure. No carotid bruit is heard. HEART EXAMINATION: Heart S1 S2 1 systolic murmur is heard CHEST EXAMINATION: Lungs are clear with improvement in air entry to bilateral bases ABDOMEN: Soft, nontender. Bowel sounds are heard. No organomegaly noted. EXTREMITIES: 2+ peripheral pulses with trace evidence of peripheral edema, bilateral wraps in place . NEUROLOGIC patient is awake, alert and oriented 2 . - Labs CBC & Chem 7: 07/15/19 08:35 07/17/19 05:33 Labs: Abnormal Lab Results - Last 24 Hours (Table) 07/16/19 07/16/19 07/17/19 Range/Units 16:38 20:41 05:33 Chloride 97 L (98-107) mmol/L BUN 48 H (7-17) mg/dL Creatinine 2.03 H (0.52-1.04) mg/dL Glucose 103 H (74-99) mg/dL POC Glucose (mg/dL) 110 H 197 H (75-99) mg/dL Calcium 8.0 L (8.4-10.2) mg/dL 07/17/19 07/17/19 Range/Units 06:33 11:34 Chloride (98-107) mmol/L BUN (7-17) mg/dL Creatinine (0.52-1.04) mg/dL Glucose (74-99) mg/dL POC Glucose (mg/dL) 102 H 103 H (75-99) mg/dL Calcium (8.4-10.2) mg/dL Assessment and Plan Plan: Assessment and plan #1 diastolic congestive heart failure, acute on chronic #2 hypertension #3 history of CVA #4 known history of coronary artery disease with prior bypass surgery #5 COPD #6 acute on chronic kidney disease #7 hyperlipidemia #8 mild dementia #9 paroxysmal atrial fibrillation, not on anticoagulation Plan We will discontinue the IV Lasix drip today and start the patient on oral diuretics. Echocardiogram with Doppler study revealed a normal left ventricular systolic function. DNP note has been reviewed, I agree with a documented findings and plan of care. Patient was seen and examined.
[2019-07-17] MEDS: FUROSEMIDE 40 MG TAB PO SCH (16:20)
[2019-07-17 16:36] LABS: Glucose,Whole Blood 81 mg/dL (75-99)
[2019-07-17 20:34] LABS: Glucose,Whole Blood 181 mg/dL (75-99)
[2019-07-17] MEDS: ATORVASTATIN 20 MG TAB PO SCH (20:50)
[2019-07-17] MEDS: INSULIN DETEMIR (LEVEMIR) 100 UNIT/ML SYR SQ SCH (20:51)
[2019-07-17] MEDS: CLOPIDOGREL 75 MG TAB PO SCH (20:51)
[2019-07-17] MEDS: FERROUS SULFATE 325 MG TAB PO SCH (20:51)
--- NOTE | 2019-07-17 22:53 | P.PN ---
Progress Note - Text Progress Note Date: 07/17/19 Chief Complaint: Edema Interval history: This is a pleasant 74-year-old patient. Patient's report is started. Per the EMS run sheet patient been having increasing edema in the lower extremity. Apparently been going on for at least 2 days. Patient does take Lasix. Denies any significant short of breath. No chest pain. No fever no chills. Chronic stable medical conditions include persistent atrial fibrillation, right-sided weakness from a prior stroke, coronary artery disease, COPD in an ex-smoker, moderate cognitive impairment from multi-infarct dementia, diabetes mellitus type 2, GERD, hyperlipidemia, primary osteoarthritis, see daily stage III, chronic low back pain from sciatica, urinary incontinence, anxiety disorder, moderate mitral and tricuspid regurgitation regurgitation, severe secondary pulmonary hypertension. Patient not able to give too much of more history. Admitted with CHF exacerbation. Started on a Lasix drip. Today-patient remains on Lasix drip. Had been significant urine output. Edema is gone down quite a bit. Oral intake is still a bit low. Review of systems difficult to do because patient can only speak a few words. Looks more comfortable Active Medications Acetaminophen (Tylenol Tab) 1,000 mg PO Q6HR PRN PRN Reason: Pain or Fever > 100.5 Last Admin: 07/17/19 20:51 Dose: 1,000 mg Documented by: Albuterol/Ipratropium (Duoneb 0.5 Mg-3 Mg/3 Ml Soln) 3 ml INHALATION RT-TID PRN PRN Reason: Shortness Of Breath Allopurinol (Zyloprim) 100 mg PO DAILY@0600 [facility] Last Admin: 07/17/19 06:17 Dose: 100 mg Documented by: Amiodarone HCl (Cordarone) 200 mg PO BID [facility] Last Admin: 07/17/19 20:50 Dose: 200 mg Documented by: Amlodipine Besylate (Norvasc) 5 mg PO DAILY@0600 [facility] Last Admin: 07/17/19 06:17 Dose: 5 mg Documented by: Aspirin (Aspirin) 81 mg PO DAILY [facility] Last Admin: 07/17/19 09:05 Dose: 81 mg Documented by: Atorvastatin Calcium (Lipitor) 20 mg PO [facility] Last Admin: 07/17/19 20:50 Dose: 20 mg Documented by: Calcitriol (Rocaltrol) 0.25 mcg PO [facility] Last Admin: 07/17/19 09:05 Dose: 0.25 mcg Documented by: Clonazepam (Klonopin) 0.5 mg PO TID [facility] Last Admin: 07/17/19 20:51 Dose: 0.5 mg Documented by: Clonidine (Catapres) 0.2 mg PO BID [facility] Last Admin: 07/17/19 20:51 Dose: 0.2 mg Documented by: Clopidogrel Bisulfate (Plavix) 75 mg PO [facility] Last Admin: 07/17/19 20:51 Dose: 75 mg Documented by: Ferrous Sulfate (Feosol) 325 mg PO [facility] Last Admin: 07/17/19 20:51 Dose: 325 mg Documented by: Folic Acid (Folbic) 1 each PO DAILY [facility] Last Admin: 07/17/19 09:06 Dose: 1 each Documented by: Furosemide (Lasix) 40 mg PO BID@0900,1600 [facility] Last Admin: 07/17/19 16:20 Dose: 40 mg Documented by: Guaifenesin (Robitussin) 200 mg PO Q4H PRN PRN Reason: Cough Hydralazine HCl (Apresoline) 50 mg PO TID [facility] Last Admin: 07/17/19 20:51 Dose: 50 mg Documented by: Insulin Detemir (Levemir) 15 unit SQ [facility] Last Admin: 07/17/19 20:51 Dose: 15 unit Documented by: Isosorbide Mononitrate (Imdur) 30 mg PO DAILY [facility] Last Admin: 07/17/19 09:05 Dose: 30 mg Documented by: Magnesium Hydroxide (Milk Of Magnesia) 2,400 mg PO Q72H PRN PRN Reason: Constipation Melatonin (Melatonin) 3 mg PO HS PRN PRN Reason: Insomnia Metoprolol Tartrate (Lopressor) 25 mg PO BID [facility] Last Admin: 07/17/19 20:51 Dose: 25 mg Documented by: Pantoprazole Sodium (Protonix) 40 mg PO AC-BID [facility] Last Admin: 07/17/19 16:21 Dose: 40 mg Documented by: Paroxetine HCl (Paxil) 10 mg PO Q48H [facility] Last Admin: 07/17/19 09:05 Dose: 10 mg Documented by: Potassium Chloride (K-Dur 10) 10 meq PO DAILY [facility] Last Admin: 07/17/19 09:05 Dose: 10 meq Documented by: Repaglinide (Prandin) 0.5 mg PO DAILY [facility] Last Admin: 07/17/19 09:06 Dose: 0.5 mg Documented by: Senna/Docusate Sodium (Senokot-S) 1 each PO DAILY [facility] Last Admin: 07/17/19 09:05 Dose: 1 each Documented by: Sodium Chloride (Saline Flush) 10 ml IV BID [facility] Last Admin: 07/17/19 20:51 Dose: 10 ml Documented by: Physical examination: VITAL SIGNS: 98.3, 50, 16, 178/61, 94% room air GENERAL: Laying in bed, comfortable EYES: Pupils equal. Conjunctiva normal. HEENT: External appearance of nose and ears normal, oral cavity grossly normal. NECK: Short and thick neck, JVD unable to assess, mass not palpable. HEART: Heart sounds distant, edema much improved LUNGS: Respiratory rate increased, diminished breath sounds. ABDOMEN: Soft, nontender, liver spleen not palpable, no masses palpable. PSYCH: Patient can answer some occasional words. NEUROLOGICAL: Cranial nerves grossly intact; no facial asymmetry, slight decrease in power on the right side. INVESTIGATIONS, reviewed in the clinical context: 148 creatinine 2.03 Admission testing: EKG tracing personally reviewed by me-sinus bradycardia heart rate of 50 Chest x-ray film personally reviewed by me-shows pulmonary edema, pleural effusion, fluid in the fissure 2-D echo-moderate concentric left ventricular hypertrophy, EF 55-60%, severe tricuspid regurgitation, moderate to severe mitral regurgitation, moderately severe pulmonary hypertension White count 9.6 and bilirubin 10.4 platelets 196 potassium 4.3 bun 46 creatinine 1.87 Labs on June 26 were bun of 35 creatinine 1.79 Assessment: -Acute on chronic congestive heart failure from diastolic dysfunction EF 55-60%, much improved -Paroxysmal atrial fibrillation -Coronary artery disease with prior history of bypass -COPD in an ex-smoker -Moderate cognitive impairment from multi-infarct dementia -Diabetes mellitus type 2 on -GERD -Hyperlipidemia -Primary osteoarthritis -Chronic kidney disease stage III from nephrosclerosis and diabetic nephropathy -Chronic low back pain with sciatica -Chronic urinary incontinence -Anxiety not otherwise specified -Severe secondary probably hypertension due to COPD and CHF -Moderate mitral and tricuspid regurgitation nonrheumatic -Anxiety disorder -Obesity BMI 32.8 -CODE STATUS DO NOT RESUSCITATE Plan: Patient can be disconnected from the IV Lasix drip. Switched over to by mouth Lasix. Hoping patient can discharge by tomorrow. Repeat labs in the morning.
[2019-07-18 06:01] LABS: Glucose,Whole Blood 121 mg/dL (75-99)
[2019-07-18] MEDS: PANTOPRAZOLE 40 MG TABLET PO SCH ×2 (06:17→17:26)
[2019-07-18] MEDS: ALLOPURINOL 100 MG TAB PO SCH (06:17)
[2019-07-18] MEDS: amLODIPine 5 MG TAB PO SCH ×2 (06:17→21:22)
[2019-07-18] MEDS: ACETAMINOPHEN TAB 500 MG TAB PO PRN ×2 (06:17→17:06)
[2019-07-18 07:11] LABS: Calcium 8.3 mg/dL (8.4-10.2); Potassium 3.5 mmol/L (3.5-5.1)
[2019-07-18] MEDS: AMIODARONE 200 MG TAB PO SCH ×2 (10:05→21:22)
[2019-07-18] MEDS: ASPIRIN 81 MG PO SCH (10:06)
[2019-07-18] MEDS: clonazePAM 0.5 MG TAB PO SCH ×3 (10:07→21:22)
[2019-07-18] MEDS: cloNIDine HCL 0.2 MG TAB PO SCH ×2 (10:08→21:22)
[2019-07-18] MEDS: CYANOCOBALAMIN-FA-PYRIDOXINE 1 EACH TAB PO SCH (10:09)
[2019-07-18] MEDS: hydrALAZINE HCL 50 MG TAB PO SCH ×3 (10:10→21:23)
[2019-07-18] MEDS: FUROSEMIDE 40 MG TAB PO SCH (10:10)
[2019-07-18] MEDS: METOPROLOL TARTRATE 25 MG TAB PO SCH ×2 (10:15→21:23)
[2019-07-18] MEDS: ISOSORBIDE MONONITRATE ER 30 MG TAB.ER.24H PO SCH (10:15)
[2019-07-18] MEDS: REPAGLINIDE 1 MG TAB PO SCH (10:16)
[2019-07-18] MEDS: POTASSIUM CHLORIDE ER 10 MEQ TAB.ER.PRT PO SCH (10:16)
[2019-07-18] MEDS: SENNOSIDES-DOCUSATE SODIUM 1 EACH TAB PO SCH (10:17)
[2019-07-18] MEDS ORDERED: FUROSEMIDE 10 MG/ML 4 ML VIAL IV STA (10:40)
[2019-07-18 11:44] LABS: Glucose,Whole Blood 150 mg/dL (75-99)
--- NOTE | 2019-07-18 14:21 | P.PN ---
Subjective Progress Note Date: 07/18/19 This is a 74-year-old female patient with history of prior CVA, coronary artery disease with prior bypass surgery, COPD, dementia, hypertension, chronic kidney disease, hypertension, osteoarthritis. Who was admitted to the hospital mainly with symptoms of lower extremity edema. According to the patient for the past couple of days she has noticed herself to put on more fluid in her lower extremities. She denies any change in her breathing, states overall that she's been breathing fairly well. Denies any PND or orthopnea. Patient's most recent echocardiogram with Doppler study was performed in August which revealed an ejection fraction of 45-50%, moderate mitral regurg, moderate to severe tric uspid regurg and moderate to severe pulmonary hypertension were noted at that time. Laboratory data was reviewed, white blood cell count 10.5, hemoglobin 12.6, platelet count 205. Sodium 138, potassium 4.0, BUN 45 and creatinine 1.8. Troponin 0.036, BNP level 13,900. Admission Blood pressure 180/60 with a heart rate in the 50s, 98% on room air. Blood pressure this morning 148/60 with a heart rate in the 40s to 50s, 100% on room air. Chest x-ray shows improved aeration in comparison to prior with a trace pleural effusion. EKG shows a sinus bradycardia with a first-degree AV block. At the time of my examination this morning, patient is lying flat in bed, no difficulty in breathing, she just feels tired. She has been initiated on IV Lasix, she does have a good amount of urine in her Peralta catheter bag. 07/16/2019 Patient seen and examined this morning, her daughter is at bedside. Overall she feels well. Blood pressure running on the high side, 190/80, and 180/80, heart rate in the 60s, 92% on room air. Sodium 138, potassium 3.7, BUN 46 and creatinine 2.1. We will increase the clonidine to 0.2 mg twice a day, increase hydralazine, repeat chest x-ray in the morning. 07/17/2019 Patient was seen and examined this morning, overall doing well. Continue to diurese well through the night last night. Chest x-ray shows improvement from admission chest x-ray. We will discontinue the IV Lasix drip today and start the patient on oral diuretics. Her echo showed normal left ventricular systolic function. 07/18/2019 Patient seen and examined this morning, seems to have a little more edema today and also some mild wheezing noted. Her weight continues to be down today. Sodium 137, potassium 3.5, BUN 48, and creatinine 2.0. We will resume the IV Lasix today for 24-48 hours, continue to monitor the intake and output along with daily weights and daily lytes BUN and creatinine. Objective - Vital Signs Vital signs: Vital Signs Temp 98.0 F 07/18/19 12:50 Pulse 51 L 07/18/19 12:50 Resp 18 07/18/19 12:50 BP 162/67 07/18/19 12:50 Pulse Ox 94 L 07/18/19 12:50 Intake & Output 07/17/19 07/18/19 07/18/19 18:59 06:59 18:59 Intake Total 390 300 Output Total 1000 500 Balance -610 -500 300 Weight 90 kg Intake: Intake, IV Titration 100 Amount Furosemide 100 mg In 100 Sodium Chloride 0.9% 90 ml @ 10 MG/HR 10 mls/hr IV .Q10H [facility] Rx#: [id number] Oral 290 300 Output: Urine 1000 500 Other: Voiding Method Indwelling Catheter Indwelling Catheter Indwelling Catheter # Bowel Movements 1 - Exam PHYSICAL EXAMINATION: GENERAL: 74-year-old female in no acute distress at the time of my examination HEENT: Head is atraumatic, normocephalic. Pupils equal, round. Sclera anicteric. Conjunctiva are clear. Mucous membranes of the mouth are moist. Neck is supple. There is no elevated jugular venous pressure. No carotid bruit is heard. HEART EXAMINATION: Heart S1 S2 1 systolic murmur is heard CHEST EXAMINATION: Lungs are clear with improvement in air entry to bilateral bases ABDOMEN: Soft, nontender. Bowel sounds are heard. No organomegaly noted. EXTREMITIES: 2+ peripheral pulses with trace evidence of peripheral edema, bilateral wraps in place . NEUROLOGIC patient is awake, alert and oriented 2 . - Labs CBC & Chem 7: 07/15/19 08:35 07/18/19 05:57 Labs: Abnormal Lab Results - Last 24 Hours (Table) 07/17/19 07/18/19 07/18/19 Range/Units 20:29 05:57 05:58 Chloride 96 L (98-107) mmol/L Carbon Dioxide 31 H (22-30) mmol/L BUN 48 H (7-17) mg/dL Creatinine 2.03 H (0.52-1.04) mg/dL Glucose 116 H (74-99) mg/dL POC Glucose (mg/dL) 181 H 121 H (75-99) mg/dL Calcium 8.3 L (8.4-10.2) mg/dL 07/18/19 Range/Units 11:41 Chloride (98-107) mmol/L Carbon Dioxide (22-30) mmol/L BUN (7-17) mg/dL Creatinine (0.52-1.04) mg/dL Glucose (74-99) mg/dL POC Glucose (mg/dL) 150 H (75-99) mg/dL Calcium (8.4-10.2) mg/dL Assessment and Plan Plan: Assessment and plan #1 diastolic congestive heart failure, acute on chronic #2 hypertension #3 history of CVA #4 known history of coronary artery disease with prior bypass surgery #5 COPD #6 acute on chronic kidney disease #7 hyperlipidemia #8 mild dementia #9 paroxysmal atrial fibrillation, not on anticoagulation Plan We will resume the Lasix IV 40 mg twice a day for 48 hours, continue to monitor the intake and output along with daily weights and daily lytes BUN and creatinine. DNP note has been reviewed, I agree with a documented findings and plan of care. Patient was seen and examined.
[2019-07-18 16:38] LABS: Glucose,Whole Blood 84 mg/dL (75-99)
[2019-07-18] MEDS: FUROSEMIDE 10 MG/ML 4 ML VIAL IV SCH ×2 (16:58→21:23)
[2019-07-18 20:26] LABS: Glucose,Whole Blood 111 mg/dL (75-99)
[2019-07-18] MEDS: ATORVASTATIN 20 MG TAB PO SCH (21:23)
[2019-07-18] MEDS: INSULIN DETEMIR (LEVEMIR) 100 UNIT/ML SYR SQ SCH (21:23)
[2019-07-18] MEDS: CLOPIDOGREL 75 MG TAB PO SCH (21:23)
[2019-07-18] MEDS: FERROUS SULFATE 325 MG TAB PO SCH (21:23)
--- NOTE | 2019-07-18 21:24 | P.PN ---
Progress Note - Text Progress Note Date: 07/18/19 Chief Complaint: Edema Interval history: This is a pleasant 74-year-old patient. Patient's report is started. Per the EMS run sheet patient been having increasing edema in the lower extremity. Apparently been going on for at least 2 days. Patient does take Lasix. Denies any significant short of breath. No chest pain. No fever no chills. Chronic stable medical conditions include persistent atrial fibrillation, right-sided weakness from a prior stroke, coronary artery disease, COPD in an ex-smoker, moderate cognitive impairment from multi-infarct dementia, diabetes mellitus type 2, GERD, hyperlipidemia, primary osteoarthritis, see daily stage III, chronic low back pain from sciatica, urinary incontinence, anxiety disorder, moderate mitral and tricuspid regurgitation regurgitation, severe secondary pulmonary hypertension. Patient not able to give too much of more history. Admitted with CHF exacerbation. Started on a Lasix drip. Did switch to by mouth Lasix Today-earlier patient reported to have some crackles. Cardiology re- initiated IV Lasix. Review of systems difficult to do because patient can only speak a few words. Looks more comfortable Active Medications Acetaminophen (Tylenol Tab) 1,000 mg PO Q6HR PRN PRN Reason: Pain or Fever > 100.5 Last Admin: 07/18/19 17:06 Dose: 1,000 mg Documented by: Albuterol/Ipratropium (Duoneb 0.5 Mg-3 Mg/3 Ml Soln) 3 ml INHALATION RT-TID PRN PRN Reason: Shortness Of Breath Last Admin: 07/18/19 12:20 Dose: 3 ml Documented by: Allopurinol (Zyloprim) 100 mg PO DAILY@[facility]00 [facility] Last Admin: 07/18/19 06:17 Dose: 100 mg Documented by: Amiodarone HCl (Cordarone) 200 mg PO BID [facility] Last Admin: 07/18/19 10:05 Dose: 200 mg Documented by: Amlodipine Besylate (Norvasc) 5 mg PO BID [facility] Aspirin (Aspirin) 81 mg PO [facility]ILY [facility] Last Admin: 07/18/19 10:06 Dose: 81 mg Documented by: Atorvastatin Calcium (Lipitor) 20 mg PO [facility] Last Admin: 07/17/19 20:50 Dose: 20 mg Documented by: Calcitriol (Rocaltrol) 0.25 mcg PO [facility] Last Admin: 07/17/19 09:05 Dose: 0.25 mcg Documented by: Clonazepam (Klonopin) 0.5 mg PO TID [facility] Last Admin: 07/18/19 17:06 Dose: 0.5 mg Documented by: Clonidine (Catapres) 0.2 mg PO BID [facility] Last Admin: 07/18/19 10:08 Dose: 0.2 mg Documented by: Clopidogrel Bisulfate (Plavix) 75 mg PO [facility] Last Admin: 07/17/19 20:51 Dose: 75 mg Documented by: Ferrous Sulfate (Feosol) 325 mg PO [facility] Last Admin: 07/17/19 20:51 Dose: 325 mg Documented by: Folic Acid (Folbic) 1 each PO [facility]ILY [facility] Last Admin: 07/18/19 10:09 Dose: 1 each Documented by: Furosemide (Lasix) 40 mg IV Q12HR [facility] Last Admin: 07/18/19 16:58 Dose: Not Given Documented by: Guaifenesin (Robitussin) 200 mg PO Q4H PRN PRN Reason: Cough Hydralazine HCl (Apresoline) 50 mg PO TID [facility] Last Admin: 07/18/19 17:06 Dose: 50 mg Documented by: Insulin Detemir (Levemir) 15 unit SQ [facility] Last Admin: 07/17/19 20:51 Dose: 15 unit Documented by: Isosorbide Mononitrate (Imdur) 30 mg PO [facility]ILY [facility] Last Admin: 07/18/19 10:15 Dose: 30 mg Documented by: Magnesium Hydroxide (Milk Of Magnesia) 2,400 mg PO Q72H PRN PRN Reason: Constipation Melatonin (Melatonin) 3 mg PO HS PRN PRN Reason: Insomnia Metoprolol Tartrate (Lopressor) 25 mg PO BID [facility] Last Admin: 07/18/19 10:15 Dose: 25 mg Documented by: Pantoprazole Sodium (Protonix) 40 mg PO AC-BID [facility] Last Admin: 07/18/19 17:26 Dose: Not Given Documented by: Paroxetine HCl (Paxil) 10 mg PO Q48H [facility] Last Admin: 07/17/19 09:05 Dose: 10 mg Documented by: Potassium Chloride (K-Dur 10) 10 meq PO DAILY [facility] Last Admin: 07/18/19 10:16 Dose: 10 meq Documented by: Repaglinide (Prandin) 0.5 mg PO DAILY [facility] Last Admin: 07/18/19 10:16 Dose: 0.5 mg Documented by: Senna/Docusate Sodium (Senokot-S) 1 each PO [facility]ILY [facility] Last Admin: 07/18/19 10:17 Dose: 1 each Documented by: Sodium Chloride (Saline Flush) 10 ml IV BID [facility] Last Admin: 07/18/19 10:45 Dose: 10 ml Documented by: Physical examination: VITAL SIGNS: 98, 51, 18, 163/67, 94% room air GENERAL: Laying flat in bed, comfortable EYES: Pupils equal. Conjunctiva normal. HEENT: External appearance of nose and ears normal, oral cavity grossly normal. NECK: Short and thick neck, JVD unable to assess, mass not palpable. HEART: Heart sounds distant, edema much improved LUNGS: Respiratory rate increased, diminished breath sounds. ABDOMEN: Soft, nontender, liver spleen not palpable, no masses palpable. PSYCH: Patient can answer some occasional words. NEUROLOGICAL: Cranial nerves grossly intact; no facial asymmetry, slight decrease in power on the right side. INVESTIGATIONS, reviewed in the clinical context: Bun 148, creatinine 2.03 Admission testing: EKG tracing personally reviewed by me-sinus bradycardia heart rate of 50 Chest x-ray film personally reviewed by me-shows pulmonary edema, pleural effusion, fluid in the fissure 2-D echo-moderate concentric left ventricular hypertrophy, EF 55-60%, severe tricuspid regurgitation, moderate to severe mitral regurgitation, moderately severe pulmonary hypertension White count 9.6 and bilirubin 10.4 platelets 196 potassium 4.3 bun 46 creatinine 1.87 Labs on June 26 were bun of 35 creatinine 1.79 Assessment: -Acute on chronic congestive heart failure from diastolic dysfunction EF 55-60%, improving -Paroxysmal atrial fibrillation -Coronary artery disease with prior history of bypass -COPD in an ex-smoker -Moderate cognitive impairment from multi-infarct dementia -Diabetes mellitus type 2 on -GERD -Hyperlipidemia -Primary osteoarthritis -Chronic kidney disease stage III from nephrosclerosis and diabetic nephropathy -Chronic low back pain with sciatica -Chronic urinary incontinence -Anxiety not otherwise specified -Severe secondary probably hypertension due to COPD and CHF -Moderate mitral and tricuspid regurgitation nonrheumatic -Anxiety disorder -Obesity BMI 32.8 -CODE STATUS DO NOT RESUSCITATE Plan: Patient is put back on IV Lasix this morning by cardiology. Patient laying in bed. Appears comfortable. Follow electrolytes. See how she does. Other medications to continue.
--- NOTE | 2019-07-18 23:22 | US ---
EXAM: US Duplex Right Lower Extremity Veins CLINICAL HISTORY: Right lower extremity pain. TECHNIQUE: Real-time duplex ultrasound scan of the right lower extremity veins integrating B-mode two-dimensional vascular structure, Doppler spectral analysis, color flow Doppler imaging and compression. COMPARISON: None. FINDINGS: Limitations: The calf veins are markedly limited in evaluation. Due to the limited nature of the study, clinical correlation is necessary. Deep veins: The right common femoral vein, right superficial femoral vein, and the right popliteal vein are well-visualized and are shown to be patent. No DVT in the visualized common femoral, femoral, proximal deep femoral or popliteal veins. The veins demonstrate normal color flow, are normally compressible, with normal phasic flow and/or augmentation response. Superficial veins: Unremarkable. No thrombus in the visualized great saphenous vein. Soft tissues: No acute findings. No popliteal cyst. Other findings: Only the proximal aspect of the calf veins are visualized. IMPRESSION: Limited evaluation with respect to the calf veins. Otherwise, no deep venous thrombus of the right lower extremity. Due to the limited nature of the study, clinical correlation is necessary.
[2019-07-19 06:05] LABS: Glucose,Whole Blood 99 mg/dL (75-99)
[2019-07-19] MEDS: PANTOPRAZOLE 40 MG TABLET PO SCH ×2 (06:23→15:51)
[2019-07-19] MEDS: ALLOPURINOL 100 MG TAB PO SCH (06:23)
[2019-07-19 07:00] LABS: Calcium 8.1 mg/dL (8.4-10.2); Potassium 3.5 mmol/L (3.5-5.1)
[2019-07-19] MEDS: FUROSEMIDE 10 MG/ML 4 ML VIAL IV SCH ×2 (09:17→21:18)
[2019-07-19] MEDS: hydrALAZINE HCL 50 MG TAB PO SCH ×3 (09:18→21:16)
[2019-07-19] MEDS: clonazePAM 0.5 MG TAB PO SCH ×3 (09:18→21:20)
[2019-07-19] MEDS: amLODIPine 5 MG TAB PO SCH ×2 (09:18→21:17)
[2019-07-19] MEDS: METOPROLOL TARTRATE 25 MG TAB PO SCH ×2 (09:18→21:18)
[2019-07-19] MEDS: cloNIDine HCL 0.2 MG TAB PO SCH (09:18)
[2019-07-19] MEDS: AMIODARONE 200 MG TAB PO SCH ×2 (09:18→21:17)
[2019-07-19] MEDS: ISOSORBIDE MONONITRATE ER 30 MG TAB.ER.24H PO SCH (09:18)
[2019-07-19] MEDS: CYANOCOBALAMIN-FA-PYRIDOXINE 1 EACH TAB PO SCH (09:18)
[2019-07-19] MEDS: REPAGLINIDE 1 MG TAB PO SCH (09:18)
[2019-07-19] MEDS: SENNOSIDES-DOCUSATE SODIUM 1 EACH TAB PO SCH (09:18)
[2019-07-19] MEDS: ASPIRIN 81 MG PO SCH (09:18)
[2019-07-19] MEDS: POTASSIUM CHLORIDE ER 10 MEQ TAB.ER.PRT PO SCH (09:18)
[2019-07-19] MEDS: PARoxetine 10 MG TAB PO SCH (09:18)
[2019-07-19] MEDS: CALCITRIOL 0.25 MCG CAP PO SCH (10:03)
[2019-07-19 11:57] LABS: Glucose,Whole Blood 98 mg/dL (75-99)
--- NOTE | 2019-07-19 12:17 | CONS ---
CONSULTATION This is a 74-year-old female patient, came from [facility] with history of shortness of breath. She has pulmonary edema, pulmonary hypertension, coronary artery disease. I was consulted for discomfort in her right calf area. The patient had a venous ultrasound. There is no evidence of deep vein thrombosis. Vascular examination: Brachial radial pulses are present. Femorals are 1+ bilateral. The patient has dorsalis pedis by the Doppler. There is some redness noted in the right heel area and also on the lateral aspect of the lower leg with some redness, most likely some edema and cellulitis. Both feet are warm. The patient has some chronic vascular issues. There is no acute occlusive disease noted physically. The patient does have some tenderness in the calf area and also on the right heel area. I recommend to have most likely some cellulitis. Discussed with Dr. Larios. The patient will be on Keflex IV and follow with you. Thank you very much for the consultation. MMODL / IJN: [id number] /
--- NOTE | 2019-07-19 15:15 | P.PN ---
Progress Note - Text Progress Note Date: 07/19/19 Chief Complaint: Edema Interval history: This is a pleasant 74-year-old patient. Patient's report is started. Per the EMS run sheet patient been having increasing edema in the lower extremity. Apparently been going on for at least 2 days. Patient does take Lasix. Denies any significant short of breath. No chest pain. No fever no chills. Chronic stable medical conditions include persistent atrial fibrillation, right-sided weakness from a prior stroke, coronary artery disease, COPD in an ex-smoker, moderate cognitive impairment from multi-infarct dementia, diabetes mellitus type 2, GERD, hyperlipidemia, primary osteoarthritis, see daily stage III, chronic low back pain from sciatica, urinary incontinence, anxiety disorder, moderate mitral and tricuspid regurgitation regurgitation, severe secondary pulmonary hypertension. Patient not able to give too much of more history. Admitted with CHF exacerbation. Started on a Lasix drip. Did switch to by mouth Lasix Today-laying in bed. Laying flat. Not short of breath. Breathing is better. Did tolerate some diet. Having some pain in the right leg slight area of redness. The Dopplers were positive for distal pulses. Review of systems difficult to do because patient can only speak a few words. Looks more comfortable Physical examination: VITAL SIGNS: 98.2, 55, 18, 1 33 x 60, 92% room air GENERAL: Laying flat in bed, comfortable EYES: Pupils equal. Conjunctiva normal. HEENT: External appearance of nose and ears normal, oral cavity grossly normal. NECK: Short and thick neck, JVD unable to assess, mass not palpable. HEART: Heart sounds distant, edema much improved LUNGS: Respiratory rate increased, diminished breath sounds. ABDOMEN: Soft, nontender, liver spleen not palpable, no masses palpable. PSYCH: Patient can answer some occasional words. NEUROLOGICAL: Cranial nerves grossly intact; no facial asymmetry, slight decrease in power on the right side. EXTREMITY: Right casey area of localized redness and very tender, right heel is a bit discolored with no breakdown of skin. INVESTIGATIONS, reviewed in the clinical context: Bun 48, creatinine 2.05 Admission testing: EKG tracing personally reviewed by me-sinus bradycardia heart rate of 50 Chest x-ray film personally reviewed by me-shows pulmonary edema, pleural effusion, fluid in the fissure 2-D echo-moderate concentric left ventricular hypertrophy, EF 55-60%, severe tricuspid regurgitation, moderate to severe mitral regurgitation, moderately severe pulmonary hypertension White count 9.6 and bilirubin 10.4 platelets 196 potassium 4.3 bun 46 creatinine 1.87 Labs on June 26 were bun of 35 creatinine 1.79 Assessment: -Acute on chronic congestive heart failure from diastolic dysfunction EF 55-60%, improving -Area of redness on the right casey, localized hypersensitive could be of area of localized neuropathy. Cannot rule out cellulitis. -Paroxysmal atrial fibrillation -Coronary artery disease with prior history of bypass -COPD in an ex-smoker -Moderate cognitive impairment from multi-infarct dementia -Diabetes mellitus type 2 on -GERD -Hyperlipidemia -Primary osteoarthritis -Chronic kidney disease stage III from nephrosclerosis and diabetic nephropathy -Chronic low back pain with sciatica -Chronic urinary incontinence -Anxiety not otherwise specified -Severe secondary probably hypertension due to COPD and CHF -Moderate mitral and tricuspid regurgitation nonrheumatic -Anxiety disorder -Obesity BMI 32.8 -CODE STATUS DO NOT RESUSCITATE Plan: Patient was seen by Dr. Beard from vascular. Good distal pulses on Doppler. Not really did not no need for any further vascular intervention. We'll give a short course of Keflex. Patient remains on IV Lasix. Keep a close and renal function.
[2019-07-19 16:57] LABS: Glucose,Whole Blood 95 mg/dL (75-99)
[2019-07-19 19:59] LABS: Glucose,Whole Blood 80 mg/dL (75-99)
[2019-07-19] MEDS: INSULIN DETEMIR (LEVEMIR) 100 UNIT/ML SYR SQ SCH (21:05)
[2019-07-19] MEDS: cloNIDine HCL 0.1 MG TAB PO SCH (21:17)
[2019-07-19] MEDS: ATORVASTATIN 20 MG TAB PO SCH (21:17)
[2019-07-19] MEDS: CLOPIDOGREL 75 MG TAB PO SCH (21:17)
[2019-07-19] MEDS: FERROUS SULFATE 325 MG TAB PO SCH (21:17)
[2019-07-19] MEDS: ACETAMINOPHEN TAB 500 MG TAB PO PRN (22:46)
[2019-07-20 06:07] LABS: Glucose,Whole Blood 70 mg/dL (75-99)
[2019-07-20 06:34] LABS: Calcium 7.9 mg/dL (8.4-10.2)
[2019-07-20 06:35] LABS: Potassium 3.8 mmol/L (3.5-5.1)
[2019-07-20] MEDS: ALLOPURINOL 100 MG TAB PO SCH (06:41)
[2019-07-20] MEDS: PANTOPRAZOLE 40 MG TABLET PO SCH ×2 (06:41→17:02)
[2019-07-20] MEDS: FUROSEMIDE 10 MG/ML 4 ML VIAL IV SCH ×2 (07:36→20:58)
[2019-07-20] MEDS: CYANOCOBALAMIN-FA-PYRIDOXINE 1 EACH TAB PO SCH (07:36)
[2019-07-20] MEDS: REPAGLINIDE 1 MG TAB PO SCH (07:36)
[2019-07-20] MEDS: METOPROLOL TARTRATE 25 MG TAB PO SCH (07:36)
[2019-07-20] MEDS: ASPIRIN 81 MG PO SCH (07:37)
[2019-07-20] MEDS: cloNIDine HCL 0.1 MG TAB PO SCH ×2 (07:37→20:57)
[2019-07-20] MEDS: clonazePAM 0.5 MG TAB PO SCH ×3 (07:37→20:57)
[2019-07-20] MEDS: POTASSIUM CHLORIDE ER 10 MEQ TAB.ER.PRT PO SCH (07:37)
[2019-07-20] MEDS: amLODIPine 5 MG TAB PO SCH (07:37)
[2019-07-20] MEDS: ISOSORBIDE MONONITRATE ER 30 MG TAB.ER.24H PO SCH (07:37)
[2019-07-20] MEDS: hydrALAZINE HCL 50 MG TAB PO SCH ×3 (07:37→20:57)
[2019-07-20] MEDS: SENNOSIDES-DOCUSATE SODIUM 1 EACH TAB PO SCH (07:37)
[2019-07-20] MEDS: AMIODARONE 200 MG TAB PO SCH ×2 (07:37→20:57)
--- NOTE | 2019-07-20 07:41 | XR ---
EXAMINATION TYPE: XR chest 2V DATE OF EXAM: 07/20/2019 COMPARISON: 07/17/2019 HISTORY: Congestive heart failure TECHNIQUE: Frontal and lateral views of the chest are obtained. FINDINGS: Trace pleural effusions and moderate pulmonary vascular congestion/interstitial edema. Hilar synovial chondromatosis or multiple loose joint bodies are seen overlying the left humerus. Cardiomediastinal silhouette is enlarged with post CABG changes. Limited evaluation of the thoracic spine on the later al view given patient body habitus and technique. IMPRESSION: Similar-appearing fluid overload, likely sequela of congestive heart failure with trace pleural effusions and moderate interstitial edema.
[2019-07-20] MEDS: CARVEDILOL 12.5 MG TAB PO SCH ×2 (11:42→17:02)
[2019-07-20 12:12] LABS: Glucose,Whole Blood 95 mg/dL (75-99)
--- NOTE | 2019-07-20 13:03 | P.PN ---
Subjective Progress Note Date: 07/20/19 This is a 74-year-old female patient with history of prior CVA, coronary artery disease with prior bypass surgery, COPD, dementia, hypertension, chronic kidney disease, hypertension, osteoarthritis. Who was admitted to the hospital mainly with symptoms of lower extremity edema. According to the patient for the past couple of days she has noticed herself to put on more fluid in her lower extremities. She denies any change in her breathing, states overall that she's been breathing fairly well. Denies any PND or orthopnea. Patient's most recent echocardiogram with Doppler study was performed in August which revealed an ejection fraction of 45-50%, moderate mitral regurg, moderate to severe tric uspid regurg and moderate to severe pulmonary hypertension were noted at that time. Laboratory data was reviewed, white blood cell count 10.5, hemoglobin 12.6, platelet count 205. Sodium 138, potassium 4.0, BUN 45 and creatinine 1.8. Troponin 0.036, BNP level 13,900. Admission Blood pressure 180/60 with a heart rate in the 50s, 98% on room air. Blood pressure this morning 148/60 with a heart rate in the 40s to 50s, 100% on room air. Chest x-ray shows improved aeration in comparison to prior with a trace pleural effusion. EKG shows a sinus bradycardia with a first-degree AV block. At the time of my examination this morning, patient is lying flat in bed, no difficulty in breathing, she just feels tired. She has been initiated on IV Lasix, she does have a good amount of urine in her Peralta catheter bag. 07/16/2019 Patient seen and examined this morning, her daughter is at bedside. Overall she feels well. Blood pressure running on the high side, 190/80, and 180/80, heart rate in the 60s, 92% on room air. Sodium 138, potassium 3.7, BUN 46 and creatinine 2.1. We will increase the clonidine to 0.2 mg twice a day, increase hydralazine, repeat chest x-ray in the morning. 07/17/2019 Patient was seen and examined this morning, overall doing well. Continue to diurese well through the night last night. Chest x-ray shows improvement from admission chest x-ray. We will discontinue the IV Lasix drip today and start the patient on oral diuretics. Her echo showed normal left ventricular systolic function. 07/18/2019 Patient seen and examined this morning, seems to have a little more edema today and also some mild wheezing noted. Her weight continues to be down today. Sodium 137, potassium 3.5, BUN 48, and creatinine 2.0. We will resume the IV Lasix today for 24-48 hours, continue to monitor the intake and output along with daily weights and daily lytes BUN and creatinine. 07/19/2019 Patient seen and examined this morning, breathing overall stable, just comp laining of pain in her leg. I pressure 132/60 with a heart rate in the 50s, 97% on room air, in the afternoon and evening hours her blood pressure does go up into the 170/ 180 systolic range. Sodium 134, potassium 3.8, BUN 58, creatinine 1.9. Objective - Vital Signs Vital signs: Vital Signs Temp 97.3 F L 07/20/19 11:25 Pulse 48 L 07/20/19 11:25 Resp 18 07/20/19 11:25 BP 132/62 07/20/19 11:25 Pulse Ox 97 07/20/19 11:25 Intake & Output 07/19/19 07/20/19 07/20/19 18:59 06:59 18:59 Intake Total 180 120 Output Total 775 550 Balance -595 -550 120 Weight 89.5 kg Intake: Oral 180 120 Output: Urine 775 550 Uretheral (Peralta) 275 550 Other: Voiding Method Indwelling Catheter Indwelling Catheter Indwelling Catheter - Exam PHYSICAL EXAMINATION: GENERAL: 74-year-old female in no acute distress at the time of my examination HEENT: Head is atraumatic, normocephalic. Pupils equal, round. Sclera anicteric. Conjunctiva are clear. Mucous membranes of the mouth are moist. Neck is supple. There is no elevated jugular venous pressure. No carotid bruit is heard. HEART EXAMINATION: Heart S1 S2 1 systolic murmur is heard CHEST EXAMINATION: Lungs are clear with improvement in air entry to bilateral bases ABDOMEN: Soft, nontender. Bowel sounds are heard. No organomegaly noted. EXTREMITIES: 2+ peripheral pulses with 1+ evidence of peripheral edema, NEUROLOGIC patient is awake, alert and oriented 2 . - Labs CBC & Chem 7: 07/15/19 08:35 07/20/19 05:54 Labs: Abnormal Lab Results - Last 24 Hours (Table) 07/20/19 07/20/19 Range/Units 05:54 06:06 Sodium 134 L (137-145) mmol/L Chloride 97 L (98-107) mmol/L BUN 58 H (7-17) mg/dL Creatinine 1.98 H (0.52-1.04) mg/dL Glucose 64 L (74-99) mg/dL POC Glucose (mg/dL) 70 L (75-99) mg/dL Calcium 7.9 L (8.4-10.2) mg/dL Assessment and Plan Plan: Assessment and plan #1 diastolic congestive heart failure, acute on chronic #2 hypertension #3 history of CVA #4 known history of coronary artery disease with prior bypass surgery #5 COPD #6 acute on chronic kidney disease #7 hyperlipidemia #8 mild dementia #9 paroxysmal atrial fibrillation, not on anticoagulation Plan We will continue the Lasix IV 40 mg twice a day for 48 hours, continue to monitor the intake and output along with daily weights and daily lytes BUN and creatinine. We will also discontinue the Norvasc and international exchange coordinator to Procardia, discontinue metoprolol and change patient over to Coreg, for better blood pressure management ,we will give the patient also a one-time dose of Zaroxolyn. DNP note has been reviewed, I agree with a documented findings and plan of care. Patient was seen and examined.
--- NOTE | 2019-07-20 13:42 | US ---
EXAMINATION TYPE: US chest DATE OF EXAM: 07/20/2019 COMPARISON: CXR CLINICAL HISTORY: assess pleural eff. Pleural effusion TECHNIQUE: Targeted ultrasound of the posterior lower bilateral hemithoraces Right side NOT marked for possible thoracentesis outside the dept. Left side NOT marked for possible thoracentesis outside the dept. Pulmonologists are able to review the images in the patient?s EMR. There are very trace bilateral pleural effusions that would be unsafe for thoracentesis. IMPRESSIONS: Only very trace bilateral pleural effusions are seen.
[2019-07-20] MEDS: ACETAMINOPHEN TAB 500 MG TAB PO PRN (14:57)
[2019-07-20] MEDS: METOLAZONE 5 MG TAB PO SCH (14:58)
[2019-07-20 16:30] LABS: Glucose,Whole Blood 131 mg/dL (75-99)
--- NOTE | 2019-07-20 19:53 | P.PN ---
Progress Note - Text Progress Note Date: 07/20/19 Chief Complaint: Edema Interval history: This is a pleasant 74-year-old patient. Patient's report is started. Per the EMS run sheet patient been having increasing edema in the lower extremity. Apparently been going on for at least 2 days. Patient does take Lasix. Denies any significant short of breath. No chest pain. No fever no chills. Chronic stable medical conditions include persistent atrial fibrillation, right-sided weakness from a prior stroke, coronary artery disease, COPD in an ex-smoker, moderate cognitive impairment from multi-infarct dementia, diabetes mellitus type 2, GERD, hyperlipidemia, primary osteoarthritis, see daily stage III, chronic low back pain from sciatica, urinary incontinence, anxiety disorder, moderate mitral and tricuspid regurgitation regurgitation, severe secondary pulmonary hypertension. Patient not able to give too much of more history. Admitted with CHF exacerbation. Started on a Lasix drip. Did switch to by mouth Lasix. Was then put back on IV Lasix. Today-laying in bed. Other comfortable. On IV Lasix per cardiology.. In negative fluid balance. Did also give her Zaroxolyn today. Review of systems difficult to do because patient can only speak a few words. Looks more comfortable Active Medications Acetaminophen (Tylenol Tab) 1,000 mg PO Q6HR PRN PRN Reason: Pain or Fever > 100.5 Last Admin: 07/20/19 14:57 Dose: 1,000 mg Documented by: Albuterol/Ipratropium (Duoneb 0.5 Mg-3 Mg/3 Ml Soln) 3 ml INHALATION RT-TID PRN PRN Reason: Shortness Of Breath Last Admin: 07/18/19 12:20 Dose: 3 ml Documented by: Allopurinol (Zyloprim) 100 mg PO DAILY@0600 [facility] Last Admin: 07/20/19 06:41 Dose: 100 mg Documented by: Amiodarone HCl (Cordarone) 200 mg PO BID [facility] Last Admin: 07/20/19 07:37 Dose: 200 mg Documented by: Aspirin (Aspirin) 81 mg PO DAILY [facility] Last Admin: 07/20/19 07:37 Dose: 81 mg Documented by: Atorvastatin Calcium (Lipitor) 20 mg PO HS [facility] Last Admin: 07/19/19 21:17 Dose: 20 mg Documented by: Calcitriol (Rocaltrol) 0.25 mcg PO MOTHSA [facility] Last Admin: 07/19/19 10:03 Dose: Not Given Documented by: Carvedilol (Coreg) 12.5 mg PO BID-W/MEALS [facility] Last Admin: 07/20/19 17:02 Dose: 12.5 mg Documented by: Clonazepam (Klonopin) 0.5 mg PO TID [facility] Last Admin: 07/20/19 14:58 Dose: 0.5 mg Documented by: Clonidine (Catapres) 0.3 mg PO BID [facility] Last Admin: 07/20/19 07:37 Dose: 0.3 mg Documented by: Clopidogrel Bisulfate (Plavix) 75 mg PO [facility] Last Admin: 07/19/19 21:17 Dose: 75 mg Documented by: Ferrous Sulfate (Feosol) 325 mg PO [facility] Last Admin: 07/19/19 21:17 Dose: 325 mg Documented by: Folic Acid (Folbic) 1 each PO DAILY [facility] Last Admin: 07/20/19 07:36 Dose: 1 each Documented by: Furosemide (Lasix) 40 mg IV Q12HR [facility] Last Admin: 07/20/19 07:36 Dose: 40 mg Documented by: Guaifenesin (Robitussin) 200 mg PO Q4H PRN PRN Reason: Cough Hydralazine HCl (Apresoline) 50 mg PO TID [facility] Last Admin: 07/20/19 14:58 Dose: 50 mg Documented by: Insulin Detemir (Levemir) 15 unit SQ HS [facility] Last Admin: 07/19/19 21:05 Dose: Not Given Documented by: Isosorbide Mononitrate (Imdur) 30 mg PO DAILY [facility] Last Admin: 07/20/19 07:37 Dose: 30 mg Documented by: Magnesium Hydroxide (Milk Of Magnesia) 2,400 mg PO Q72H PRN PRN Reason: Constipation Melatonin (Melatonin) 3 mg PO HS PRN PRN Reason: Insomnia Metolazone (Zaroxolyn) 5 mg PO DAILY [facility] Last Admin: 07/20/19 14:58 Dose: 5 mg Documented by: Nifedipine (Procardia Xl) 60 mg PO [facility] Pantoprazole Sodium (Protonix) 40 mg PO AC-BID [facility] Last Admin: 07/20/19 17:02 Dose: 40 mg Documented by: Paroxetine HCl (Paxil) 10 mg PO Q48H [facility] Last Admin: 07/19/19 09:18 Dose: 10 mg Documented by: Potassium Chloride (K-Dur 10) 10 meq PO DAILY [facility] Last Admin: 07/20/19 07:37 Dose: 10 meq Documented by: Repaglinide (Prandin) 0.5 mg PO DAILY [facility] Last Admin: 07/20/19 07:36 Dose: 0.5 mg Documented by: Senna/Docusate Sodium (Senokot-S) 1 each PO DAILY [facility] Last Admin: 07/20/19 07:37 Dose: 1 each Documented by: Sodium Chloride (Flush) 10 ml IV BID [facility] Last Admin: 07/20/19 09:18 Dose: 10 ml Documented by: Physical examination: VITAL SIGNS: 97.3, 48, 18, 132% stage II, 97% room air GENERAL: Laying in bed, comfortable EYES: Pupils equal. Conjunctiva normal. HEENT: External appearance of nose and ears normal, oral cavity grossly normal. NECK: Short and thick neck, JVD unable to assess, mass not palpable. HEART: Heart sounds distant, edema much improved LUNGS: Respiratory rate increased, diminished breath sounds. ABDOMEN: Soft, nontender, liver spleen not palpable, no masses palpable. PSYCH: Patient can answer some occasional words. NEUROLOGICAL: Cranial nerves grossly intact; no facial asymmetry, slight decrease in power on the right side. EXTREMITY: Right casey area of localized redness and very tender, right heel is a bit discolored with no breakdown of skin. INVESTIGATIONS, reviewed in the clinical context: Potassium 3.8 bun 58 creatinine 1.98 Accu-Cheks 70, 95, 131 Ultrasound chest-trace bilateral pleural effusion Chest x-ray showing pulmonary edema Admission testing: EKG tracing personally reviewed by me-sinus bradycardia heart rate of 50 Chest x-ray film personally reviewed by me-shows pulmonary edema, pleural effusion, fluid in the fissure 2-D echo-moderate concentric left ventricular hypertrophy, EF 55-60%, severe tricuspid regurgitation, moderate to severe mitral regurgitation, moderately severe pulmonary hypertension White count 9.6 and bilirubin 10.4 platelets 196 potassium 4.3 bun 46 creatinine 1.87 Labs on June 26 were bun of 35 creatinine 1.79 Assessment: -Acute on chronic congestive heart failure from diastolic dysfunction EF 55-60%, slow to respond -Area of redness on the right casey, localized hypersensitive could be of area of localized neuropathy. Cannot rule out cellulitis. -Paroxysmal atrial fibrillation -Coronary artery disease with prior history of bypass -COPD in an ex-smoker -Moderate cognitive impairment from multi-infarct dementia -Diabetes mellitus type 2 uncontrolled with hypoglycemia -GERD -Hyperlipidemia -Primary osteoarthritis -Chronic kidney disease stage III from nephrosclerosis and diabetic nephropathy -Chronic low back pain with sciatica -Chronic urinary incontinence -Anxiety not otherwise specified -Severe secondary probably hypertension due to COPD and CHF -Moderate mitral and tricuspid regurgitation nonrheumatic -Anxiety disorder -Obesity BMI 32.8 -CODE STATUS DO NOT RESUSCITATE Plan: Patient is on IV Lasix per cardiology. Also given Zaroxolyn. Follow electrolytes. We will DC Levemer as her sugars are running low.
[2019-07-20 20:57] LABS: Glucose,Whole Blood 74 mg/dL (75-99)
[2019-07-20] MEDS: ATORVASTATIN 20 MG TAB PO SCH (20:57)
[2019-07-20] MEDS: CLOPIDOGREL 75 MG TAB PO SCH (20:57)
[2019-07-20] MEDS: FERROUS SULFATE 325 MG TAB PO SCH (20:57)
[2019-07-21] MEDS: ACETAMINOPHEN TAB 500 MG TAB PO PRN ×2 (04:41→14:50)
[2019-07-21 06:34] LABS: Glucose,Whole Blood 136 mg/dL (75-99)
[2019-07-21] MEDS: ALLOPURINOL 100 MG TAB PO SCH (06:41)
[2019-07-21] MEDS: PANTOPRAZOLE 40 MG TABLET PO SCH (06:42)
[2019-07-21] MEDS: SENNOSIDES-DOCUSATE SODIUM 1 EACH TAB PO SCH (09:32)
[2019-07-21] MEDS: clonazePAM 0.5 MG TAB PO SCH (09:32)
[2019-07-21] MEDS: ASPIRIN 81 MG PO SCH (09:32)
[2019-07-21] MEDS: CALCITRIOL 0.25 MCG CAP PO SCH (09:32)
[2019-07-21] MEDS: POTASSIUM CHLORIDE ER 10 MEQ TAB.ER.PRT PO SCH (09:32)
[2019-07-21] MEDS: cloNIDine HCL 0.1 MG TAB PO SCH (09:32)
[2019-07-21] MEDS: METOLAZONE 5 MG TAB PO SCH (09:33)
[2019-07-21] MEDS: AMIODARONE 200 MG TAB PO SCH (09:33)
[2019-07-21] MEDS: ISOSORBIDE MONONITRATE ER 30 MG TAB.ER.24H PO SCH (09:33)
[2019-07-21] MEDS: CYANOCOBALAMIN-FA-PYRIDOXINE 1 EACH TAB PO SCH (09:33)
[2019-07-21] MEDS: FUROSEMIDE 10 MG/ML 4 ML VIAL IV SCH (09:33)
[2019-07-21] MEDS: hydrALAZINE HCL 50 MG TAB PO SCH (09:33)
[2019-07-21] MEDS: REPAGLINIDE 1 MG TAB PO SCH (09:33)
[2019-07-21] MEDS: PARoxetine 10 MG TAB PO SCH (09:33)
[2019-07-21] MEDS: CARVEDILOL 12.5 MG TAB PO SCH (09:33)
[2019-07-21 11:05] VITALS: RESP 20; TEMP 98.1
[2019-07-21 11:38] LABS: Glucose,Whole Blood 175 mg/dL (75-99)
[2019-07-21 11:43] LABS: Potassium 3.6 mmol/L (3.5-5.1)
[2019-07-21 12:33] VITALS: BP 139/50; PULSE 50
[2019-07-21] MEDS ORDERED: CEPHALEXIN 250 MG CAP PO STA (13:14)
--- NOTE | 2019-07-21 13:18 | P.DS ---
Providers Date of admission: 07/16/19 10:19 Expected date of discharge: 07/21/19 Attending physician: Tong Larios Consults: 07/14/19 16:16 Consult Physician Routine Consulting Provider: Oren Gunderson Consult Reason/Comments: chf Do you want consulting provider notified?: Yes 07/18/19 22:41 Consult Physician Urgent Consulting Provider: Johnny Coelho Consult Reason/Comments: right LE pain Do you want consulting provider notified?: Yes Primary care physician: [facility] Course: Interval history: This is a pleasant 74-year-old patient. Per the EMS run sheet patient been having increasing edema in the lower extremity. Apparently been going on for at least 2 days. Patient does take Lasix. Denies any significant short of breath. No chest pain. No fever no chills. Chronic stable medical conditions include persistent atrial fibrillation, right-sided weakness from a prior stroke, coronary artery disease, COPD in an ex-smoker, moderate cognitive impairment from multi-infarct dementia, diabetes mellitus type 2, GERD, hyperlipidemia, primary osteoarthritis,, chronic low back pain from sciatica, urinary incontinence, anxiety disorder, moderate mitral and tricuspid regurgitation regurgitation, severe secondary pulmonary hypertension. Patient not able to give too much of more history. Admitted with CHF exacerbation. Started on a Lasix drip. He diuresed rather well. 2-D echo showed EF of 55-60%. Venous Doppler negative for DVT. Today-laying in bed. Other comfortable. On IV Lasix per cardiology.. In negative fluid balance. Did also give her Zaroxolyn today. Patient felt a little bit of cellulitis on the right casey. Seen by Dr. Coelho from vascular surgery. Patient has good pulses. Patient has some early discoloration the right heel that is present on admission. Given boots to keep the pressure off. Her sugars are not running low. Levemir was discontinued. Does of Prandin is increased. Patient doing well. Today comfortable. Tolerating a diet. Consultation: Dr. VC Jimenez from cardiology Dr. Beard from vascular surgery Physical examination: VITAL SIGNS: 98.1, 52, 20, 1 42 x 48, 92% room air GENERAL: Laying in bed, comfortable EYES: Pupils equal. Conjunctiva normal. HEENT: External appearance of nose and ears normal, oral cavity grossly normal. NECK: Short and thick neck, JVD unable to assess, mass not palpable. HEART: Heart sounds distant, edema much improved LUNGS: Respiratory rate increased, diminished breath sounds. ABDOMEN: Soft, nontender, liver spleen not palpable, no masses palpable. PSYCH: Patient can answer some occasional words. NEUROLOGICAL: Cranial nerves grossly intact; no facial asymmetry, slight decrease in power on the right side. EXTREMITY: Right casey area of localized redness and some tender, right heel is a bit discolored with no breakdown of skin. INVESTIGATIONS, reviewed in the clinical context: Bun 61 creatinine 2.2 to Admission testing: EKG tracing personally reviewed by me-sinus bradycardia heart rate of 50 Chest x-ray film personally reviewed by me-shows pulmonary edema, pleural effusion, fluid in the fissure 2-D echo-moderate concentric left ventricular hypertrophy, EF 55-60%, severe tricuspid regurgitation, moderate to severe mitral regurgitation, moderately severe pulmonary hypertension White count 9.6 and bilirubin 10.4 platelets 196 potassium 4.3 bun 46 creatinine 1.87 Labs on June 26 were bun of 35 creatinine 1.79 Discharge diagnosis: -Acute on chronic congestive heart failure from diastolic dysfunction EF 55-60%, -Area of redness on the right casey, localized hypersensitive could be of area of localized neuropathy. Possible acute cellulitis. -Paroxysmal atrial fibrillation -Coronary artery disease with prior history of bypass -COPD in an ex-smoker -Moderate cognitive impairment from multi-infarct dementia -Diabetes mellitus type 2 uncontrolled with hypoglycemia -GERD -Hyperlipidemia -Primary osteoarthritis -Chronic kidney disease stage III from nephrosclerosis and diabetic nephropathy -Chronic low back pain with sciatica -Chronic urinary incontinence -Anxiety not otherwise specified -Severe secondary probably hypertension due to COPD and CHF -Moderate mitral and tricuspid regurgitation nonrheumatic -Anxiety disorder -Obesity BMI 32.8 -CODE STATUS DO NOT RESUSCITATE [facility] Patient Condition at Discharge: Stable Plan - Discharge Summary Discharge Rx Participant: No New Discharge Prescriptions: New hydrALAZINE HCL [Apresoline] 50 mg PO TID tab Aspirin 81 mg PO DAILY chew Carvedilol [Coreg*] 12.5 mg PO BID-W/MEALS tab NIFEdipine XL [Procardia XL] 60 mg PO HS #0 tab.er.24 Continue Ergocalciferol [Vitamin D2 (DRISDOL)] 50,000 unit PO Q14D Melatonin 3 mg PO HS PRN PRN Reason: Insomnia Acetaminophen Tab [Tylenol] 1,000 mg PO Q6HR PRN PRN Reason: Pain Or Fever > 100.5 Calcitriol [Rocaltrol] 0.25 mcg PO MOTHSA Allopurinol [Zyloprim] 100 mg PO DAILY@0600 Sennosides-Docusate Sodium [Senokot-S] 1 tab PO DAILY Pantoprazole [Protonix] 40 mg PO AC-BID tablet. Ipratropium-Albuterol Nebulize [Duoneb 0.5 mg-3 mg/3 ml Soln] 3 ml INHALATION RT-TID PRN PRN Reason: Shortness Of Breath Isosorbide Mononitrate ER [Imdur] 30 mg PO DAILY tab.er.24h Ferrous Sulfate [Iron] 325 mg PO HS amLODIPine [Norvasc] 5 mg PO DAILY@0600 Potassium Chloride ER [K-Dur 10] 10 meq PO DAILY cloNIDine HCL [Catapres] 0.1 mg PO BID guaiFENesin [guaiFENesin Oral Solution] 200 mg PO Q4H PRN PRN Reason: Cough PARoxetine [Paxil] 10 mg PO Q48H Hruclyhczmgzby-TU-Etjzwwibli [Folbic] 1 tab PO DAILY Clopidogrel [Plavix] 75 mg PO HS Atorvastatin [Lipitor] 20 mg PO HS Magnesium Hydroxide [Milk of Magnesia] 2,400 mg PO Q72H PRN PRN Reason: Constipation clonazePAM [KlonoPIN] 0.5 mg PO TID #9 tab Changed Amiodarone [Cordarone] 200 mg PO DAILY #0 tab Furosemide [Lasix] 80 mg PO BID #0 Repaglinide [Prandin] 0.5 mg PO AC-TID #0 Discontinued Metoprolol Tartrate [Lopressor] 25 mg PO BID tab Insulin Glargine,Hum.rec.anlog [Lantus Solostar] 22 unit SQ HS #0 hydrALAZINE HCL [Apresoline] 25 mg PO TID Furosemide [Lasix] 40 mg PO HS Discharge Medication List Ergocalciferol [Vitamin D2 (DRISDOL)] 50,000 unit PO Q14D 12/04/14 [History] Melatonin 3 mg PO HS PRN 12/04/14 [History] Acetaminophen Tab [Tylenol] 1,000 mg PO Q6HR PRN 07/20/15 [History] Allopurinol [Zyloprim] 100 mg PO DAILY@0600 06/01/17 [History] Calcitriol [Rocaltrol] 0.25 mcg PO MOTHSA 06/01/17 [History] Sennosides-Docusate Sodium [Senokot-S] 1 tab PO DAILY 08/13/18 [History] Pantoprazole [Protonix] 40 mg PO AC-BID tablet. 08/19/18 [Rx] Ipratropium-Albuterol Nebulize [Duoneb 0.5 mg-3 mg/3 ml Soln] 3 ml INHALATION RT-TID PRN 08/22/18 [History] Isosorbide Mononitrate ER [Imdur] 30 mg PO DAILY tab.er.24h 09/10/18 [Rx] Ferrous Sulfate [Iron] 325 mg PO HS 12/11/18 [History] Potassium Chloride ER [K-Dur 10] 10 meq PO DAILY 12/11/18 [History] amLODIPine [Norvasc] 5 mg PO DAILY@0600 12/11/18 [History] cloNIDine HCL [Catapres] 0.1 mg PO BID 12/13/18 [History] Atorvastatin [Lipitor] 20 mg PO HS 07/14/19 [History] Clopidogrel [Plavix] 75 mg PO HS 07/14/19 [History] Nbpzuawidogqip-QB-Rmyusrpuin [Folbic] 1 tab PO DAILY 07/14/19 [History] Magnesium Hydroxide [Milk of Magnesia] 2,400 mg PO Q72H PRN 07/14/19 [History] PARoxetine [Paxil] 10 mg PO Q48H 07/14/19 [History] guaiFENesin [guaiFENesin Oral Solution] 200 mg PO Q4H PRN 07/14/19 [History] Amiodarone [Cordarone] 200 mg PO DAILY #0 tab 07/21/19 [Rx] Aspirin 81 mg PO DAILY chew 07/21/19 [Rx] Carvedilol [Coreg*] 12.5 mg PO BID-W/MEALS tab 07/21/19 [Rx] Furosemide [Lasix] 80 mg PO BID #0 07/21/19 [Rx] NIFEdipine XL [Procardia XL] 60 mg PO HS #0 tab.er.24 07/21/19 [Rx] Repaglinide [Prandin] 0.5 mg PO AC-TID #0 07/21/19 [Rx] clonazePAM [KlonoPIN] 0.5 mg PO TID #9 tab 07/21/19 [Rx] hydrALAZINE HCL [Apresoline] 50 mg PO TID tab 07/21/19 [Rx] Follow up Appointment(s)/Referral(s): [employer] [Other] - 10 Days Jerel Robbins DO [Primary Care Provider] - 1-2 days Ambulatory/Diagnostic Orders: Basic Metabolic Panel [LAB.AMB] Time Frame: 3 Days, Location: None Selected Activity/Diet/Wound Care/Special Instructions: ECF on D/C
--- NOTE | 2019-07-21 13:54 | P.PN ---
Subjective Progress Note Date: 07/21/19 This is a 74-year-old female patient with history of prior CVA, coronary artery disease with prior bypass surgery, COPD, dementia, hypertension, chronic kidney disease, hypertension, osteoarthritis. Who was admitted to the hospital mainly with symptoms of lower extremity edema. According to the patient for the past couple of days she has noticed herself to put on more fluid in her lower extremities. She denies any change in her breathing, states overall that she's been breathing fairly well. Denies any PND or orthopnea. Patient's most recent echocardiogram with Doppler study was performed in August which revealed an ejection fraction of 45-50%, moderate mitral regurg, moderate to severe tric uspid regurg and moderate to severe pulmonary hypertension were noted at that time. Laboratory data was reviewed, white blood cell count 10.5, hemoglobin 12.6, platelet count 205. Sodium 138, potassium 4.0, BUN 45 and creatinine 1.8. Troponin 0.036, BNP level 13,900. Admission Blood pressure 180/60 with a heart rate in the 50s, 98% on room air. Blood pressure this morning 148/60 with a heart rate in the 40s to 50s, 100% on room air. Chest x-ray shows improved aeration in comparison to prior with a trace pleural effusion. EKG shows a sinus bradycardia with a first-degree AV block. At the time of my examination this morning, patient is lying flat in bed, no difficulty in breathing, she just feels tired. She has been initiated on IV Lasix, she does have a good amount of urine in her Peralta catheter bag. 07/16/2019 Patient seen and examined this morning, her daughter is at bedside. Overall she feels well. Blood pressure running on the high side, 190/80, and 180/80, heart rate in the 60s, 92% on room air. Sodium 138, potassium 3.7, BUN 46 and creatinine 2.1. We will increase the clonidine to 0.2 mg twice a day, increase hydralazine, repeat chest x-ray in the morning. 07/17/2019 Patient was seen and examined this morning, overall doing well. Continue to diurese well through the night last night. Chest x-ray shows improvement from admission chest x-ray. We will discontinue the IV Lasix drip today and start the patient on oral diuretics. Her echo showed normal left ventricular systolic function. 07/18/2019 Patient seen and examined this morning, seems to have a little more edema today and also some mild wheezing noted. Her weight continues to be down today. Sodium 137, potassium 3.5, BUN 48, and creatinine 2.0. We will resume the IV Lasix today for 24-48 hours, continue to monitor the intake and output along with daily weights and daily lytes BUN and creatinine. 07/19/2019 Patient seen and examined this morning, breathing overall stable, just comp laining of pain in her leg. I pressure 132/60 with a heart rate in the 50s, 97% on room air, in the afternoon and evening hours her blood pressure does go up into the 170/ 180 systolic range. Sodium 134, potassium 3.8, BUN 58, creatinine 1.9. 07/21/2019 Patient seen and examined this morning, breathing is overall stable, still complaining of mild discomfort in her leg. Hemodynamically she is stable. And the ultrasound of the chest showed only a trace effusion. Objective - Vital Signs Vital signs: Vital Signs Temp 98.1 F 07/21/19 08:00 Pulse 50 L 07/21/19 12:00 Resp 20 07/21/19 12:00 BP 139/50 07/21/19 12:00 Pulse Ox 92 L 07/21/19 12:00 Intake & Output 07/20/19 07/21/19 07/21/19 18:59 06:59 18:59 Intake Total 220 180 354 Output Total 790 124 7399 Balance -848 -362 -1546 Weight 90.5 kg Intake: Oral 220 180 354 Output: Urine 965 884 8792 Uretheral (Peralta) 750 1500 Other: Voiding Method Indwelling Catheter Indwelling Catheter Indwelling Catheter - Exam PHYSICAL EXAMINATION: GENERAL: 74-year-old female in no acute distress at the time of my examination HEENT: Head is atraumatic, normocephalic. Pupils equal, round. Sclera anicteric. Conjunctiva are clear. Mucous membranes of the mouth are moist. Neck is supple. There is no elevated jugular venous pressure. No carotid bruit is heard. HEART EXAMINATION: Heart S1 S2 1 systolic murmur is heard CHEST EXAMINATION: Lungs are clear with improvement in air entry to bilateral bases ABDOMEN: Soft, nontender. Bowel sounds are heard. No organomegaly noted. EXTREMITIES: 2+ peripheral pulses with 1+ evidence of peripheral edema, NEUROLOGIC patient is awake, alert and oriented 2 . - Labs CBC & Chem 7: 07/15/19 08:35 07/21/19 10:52 Labs: Abnormal Lab Results - Last 24 Hours (Table) 07/20/19 07/20/19 07/21/19 Range/Units 16:28 20:55 06:33 Sodium (137-145) mmol/L Chloride (98-107) mmol/L BUN (7-17) mg/dL Creatinine (0.52-1.04) mg/dL Glucose (74-99) mg/dL POC Glucose (mg/dL) 131 H 74 L 136 H (75-99) mg/dL Calcium (8.4-10.2) mg/dL 07/21/19 07/21/19 Range/Units 10:52 11:36 Sodium 133 L (137-145) mmol/L Chloride 92 L (98-107) mmol/L BUN 61 H (7-17) mg/dL Creatinine 2.22 H (0.52-1.04) mg/dL Glucose 151 H (74-99) mg/dL POC Glucose (mg/dL) 175 H (75-99) mg/dL Calcium 8.0 L (8.4-10.2) mg/dL Assessment and Plan Plan: Assessment and plan #1 diastolic congestive heart failure, acute on chronic #2 hypertension #3 history of CVA #4 known history of coronary artery disease with prior bypass surgery #5 COPD #6 acute on chronic kidney disease #7 hyperlipidemia #8 mild dementia #9 paroxysmal atrial fibrillation, not on anticoagulation Plan We will discontinue the IV Lasix today and start the patient on oral diuretics. From our perspective she may be able to be transferred back to the extended care facility. DNP note has been reviewed, I agree with a documented findings and plan of care. Patient was seen and examined.
[2019-07-21] MEDS ORDERED: METOLAZONE 2.5 MG TAB PO SCH (14:15)
[2019-07-21] MEDS ORDERED: FUROSEMIDE 40 MG TAB PO SCH (16:00)
== END 2019-07-21 15:06 | DRG 291 ==
LOC: EC 14:29 → 3SCARD 16:36 → OBSVTOIN 07-16 10:19
PROVIDERS: ADMIT Hospitalist; ATTEND Hospitalist
DX: I13.0 Hypertensive heart and chronic kidney disease with heart failure and stage 1 through stage 4 chronic kidney disease, or unspecified chronic kidney disease (principal); I50.33 Acute on chronic diastolic (congestive) heart failure; L03.115 Cellulitis of right lower limb; N17.9 Acute kidney failure, unspecified; I69.951 Hemiplegia and hemiparesis following unspecified cerebrovascular disease affecting right dominant side; E11.22 Type 2 diabetes mellitus with diabetic chronic kidney disease; E11.649 Type 2 diabetes mellitus with hypoglycemia without coma; I27.29 Other secondary pulmonary hypertension; J44.9 Chronic obstructive pulmonary disease, unspecified; E11.40 Type 2 diabetes mellitus with diabetic neuropathy, unspecified; I08.1 Rheumatic disorders of both mitral and tricuspid valves; F01.50 Vascular dementia, unspecified severity, without behavioral disturbance, psychotic disturbance, mood disturbance, and anxiety; I48.0 Paroxysmal atrial fibrillation; I69.998 Other sequelae following unspecified cerebrovascular disease; N18.3 Chronic kidney disease, stage 3 (moderate); I69.311 Memory deficit following cerebral infarction; E66.9 Obesity, unspecified; E78.5 Hyperlipidemia, unspecified; F41.9 Anxiety disorder, unspecified; G89.29 Other chronic pain; I25.10 Atherosclerotic heart disease of native coronary artery without angina pectoris; I44.0 Atrioventricular block, first degree; K21.9 Gastro-esophageal reflux disease without esophagitis; M19.91 Primary osteoarthritis, unspecified site; M54.40 Lumbago with sciatica, unspecified side; R32 Unspecified urinary incontinence; M10.9 Gout, unspecified; Z68.32 Body mass index [BMI] 32.0-32.9, adult; Z66 Do not resuscitate; Z79.4 Long term (current) use of insulin; Z79.02 Long term (current) use of antithrombotics/antiplatelets; Z79.899 Other long term (current) drug therapy; Z88.8 Allergy status to other drugs, medicaments and biological substances; Z95.1 Presence of aortocoronary bypass graft; Z90.710 Acquired absence of both cervix and uterus; Z87.891 Personal history of nicotine dependence; Z85.828 Personal history of other malignant neoplasm of skin; Z87.01 Personal history of pneumonia (recurrent); Z87.440 Personal history of urinary (tract) infections; Z86.010 Personal history of colon polyps; Z98.42 Cataract extraction status, left eye; Z98.41 Cataract extraction status, right eye; Z96.1 Presence of intraocular lens; Z82.3 Family history of stroke; Z82.49 Family history of ischemic heart disease and other diseases of the circulatory system
CPT/HCPCS: 36415; 71046; 76604; 80048; 80053; 83880; 84484; 85025; 85610; 85730; 93005; 93306; 94640; 94760; 96374; 99285